=== PATIENT | male | born 1970 | race Caucasian/White ===

== ENCOUNTER 2017-02-15 00:09 | Inpatient (IN) ==
--- NOTE | 2017-02-15 01:29 | Emergency Department Note ---
Disposition Clinical Impression: UTI (urinary tract infection) Qualifiers: Urinary tract infection type: site unspecified Hematuria presence: with hematuria Qualified Code(s): N39.0 - Urinary tract infection, site not specified ; R31.9 - Hematuria, unspecified Disposition: Admitted As Inpatient Condition: Good General Adult HPI - General Chief complaint: ED Recheck/Abnormal Lab/Rx Stated complaint: "Needs IVs" Time Seen by Provider: 02/15/17 00:59 Source: patient Limitations: no limitations Nursing Notes Reviewed: Yes Vital Signs Reviewed: Yes - History of Present Illness HPI Narrative: 47-year-old male presents with urinary tract infection. He mentions he was contacted in this department and was told to return for IV antibiotics. Mentions he has a history of chronic diarrhea, and has not had some recent flulike symptoms, and some mild back pain. Denies any weakness, passing out, chest pain, shortness of breath Pain Scale: 0 - Related Data Home Medications Medication Instructions Recorded Confirmed Fluticasone Propionate Nasal 50 - 100 mcg NS DAILY 11/21/15 11/12/16 [Flonase] Potassium Chloride 60 meq PO BID 11/21/15 11/12/16 Rosuvastatin [Crestor] 20 mg PO HS 11/21/15 11/12/16 Spironolact/Hydrochlorothiazid 1 tab PO BID 11/21/15 11/12/16 [Aldactazide 25-25 Tablet] Cholecalciferol (Vitamin D3) 5,000 unit PO DAILY 11/12/16 11/12/16 [Vitamin D3] Enalapril Maleate [Vasotec] 10 mg PO DAILY 11/12/16 11/12/16 Fluticasone Propionate [Flovent 12 gm IH BID 11/12/16 11/12/16 Hfa] Levothyroxine [Synthroid] 200 mcg PO DAILY 11/12/16 11/12/16 Previous Rx's Medication Instructions Recorded Nitrofurantoin (BID) [Macrobid] 100 mg PO BIDWM #18 capsule 11/14/16 Furosemide [Lasix] 40 mg PO DAILY #30 tablet 02/08/17 Nitrofurantoin (BID) [Macrobid] 100 mg PO BID #14 capsule 02/08/17 Allergies Allergy/AdvReac Type Severity Reaction Status Date / Time adhesive AdvReac Blister Verified 02/15/17 00:23 Amoxicillin AdvReac Hives Verified 02/15/17 00:23 Oxaprozin [From Daypro] AdvReac Diarrhea Verified 02/15/17 00:23 All systems ED: reviewed and negative except as stated. Constitutional: Denies: fever, chills Eyes: Denies: eye discharge ENT ED: Denies: throat pain Cardiovascular: Denies: chest pain Respiratory: Denies: cough, dyspnea Gastrointestinal: Denies: abdominal pain, nausea, vomiting Musculoskeletal: Reports: back pain Integumentary: Denies: rash Neurological: Denies: headache Psychiatric: Denies: anxiety Endocrine: Denies: fatigue Hematological/Lymphatic: Denies: easy bleeding Allergic/Immunologic: Denies: facial swelling Past Medical History - Past Medical History Medical history: Reports: arthritis, asthma, GERD, hyperlipidemia, hypertension , thyroid disease, other Surgical history: Reports: orthopedic, other, vasectomy, other (Surgery for testicular cancer, urostomy, bladder cancer surgery, multiple abdominal surgeries for perforated bowel, spinal cyst excision) Psychiatric history: Reports: depression - Social History Smoking Status: Never smoker Smokeless Tobacco Status: No Alcohol use: Reports: none Drug use: Reports: none Physical Exam - General Limitations: no limitations General appearance: alert, in no apparent distress - Head Head exam: normocephalic - Eye Eye exam: Present: EOMI - ENT ENT exam: normal oropharynx - Neck Neck exam: Present: full ROM - Chest Chest inspection: Present: symmetric chest wall rise - Respiratory Respiratory exam: Present: normal lung sounds bilaterally. Absent: respiratory distress - Cardiovascular Cardiovascular exam: Present: tachycardia - Abdominal Exam Abdominal exam: Present: soft, Non-Tender, other (urostomy) - Extremities Exam Extremities exam: Present: normal capillary refill. Absent: tenderness - Back Exam Back exam: Present: full ROM - Neurological Exam Neurological exam: Present: alert, oriented X3 - Psychiatric Psychiatric exam: Present: normal affect, normal mood Course Course Narrative: 47-year-old male presents with complaint of urinary tract infection. Medical records showed that his previous urinalysis showed MRSA as well Acinetobacter baumannii , and sensitivity only to Unasyn. He was contacted to return for IV antibiotics and presents today. He mentions he has had some recent URI symptoms , and some mild back pain. On examination he does not appear toxic is in no acute distress. Does have a history of chronic UTIs and a urostomy bag. Will order cultures and discuss with hospitalist for admission. - Reevaluation(s) Reevaluation #1: Hospitalist was paged and I discussed patient with Dr. Jacobsen who agreed to accept the patient. However since urine was collected from bag repeat urinalysis with true catheter via urostomy. collection is needed. Dr. Jacobsen also advised dose of doxy after cultures collected. Discussed with nursing who will attempt collection, there is concern for catheter collection difficulty since patient has no bladder. Time: 03:44 Reevaluation #2: Nursing was able to collect a clean catheter urine from patient's urostomy and a second urinalysis and urine culture have been ordered. Time: 05:40 Vital Signs Temperature 97.6 F 02/15/17 00:17 Pulse Rate 108 02/15/17 00:17 Respiratory Rate 18 02/15/17 00:17 Blood Pressure 129/89 02/15/17 00:17 O2 Sat by Pulse Oximetry 97 02/15/17 00:17 Temperature 97.6 F 02/15/17 00:17 Pulse Rate 101 02/15/17 06:05 Respiratory Rate 0 02/15/17 06:16 Blood Pressure 0/0 02/15/17 06:16 O2 Sat by Pulse Oximetry 99 02/15/17 06:05 Oxygen Delivery Oxygen Delivery Room Air Medical Decision Making - MDM Narrative Medical decision making narrative: All Lab Results (24 Hours) 02/15/17 02/15/17 02/15/17 Range/Units 02:25 03:18 03:18 WBC 13.8 H (4.3-11.1) K/mcL RBC 4.65 (4.19-5.50) M/mcL Hgb 12.7 L (12.9-16.9) g/dL Hct 40.2 (37.5-50.1) % MCV 86.5 (83.0-100.0) fL MCH 27.3 L (28.0-33.3) pg MCHC 31.6 (31.6-35.5) g/dL RDW 16.6 H (11.5-14.5) % Plt Count 325 (140-400) K/mcL MPV 10.8 (9.4-12.4) fL Immature Gran % 0.3 (0-4) % Seg Neutrophils % 70.7 % Lymphocytes % 16.2 % Monocytes % 7.3 % Eosinophils % 4.7 % Basophils % 0.8 % Neutrophils # 9.8 H (1.6-8.9) K/mcL Lymphocytes # 2.2 (0.6-4.6) K/mcL Monocytes # 1.0 (0.0-1.3) K/mcL Eosinophils # 0.7 H (0.0-0.6) K/mcL Basophils # 0.1 (0.0-0.2) K/mcL Sodium 137 (136-145) mEq/L Potassium 3.8 (3.5-4.5) mEq/L Chloride 103 (98-109) mEq/L Carbon Dioxide 22 (19-29) mEq/L BUN 21 (8-26) mg/dL Creatinine 1.02 (0.72-1.25) mg/dL Est GFR ( Amer) > 60 (> 60) Est GFR (Non-Af Amer) > 60 (> 60) BUN/Creatinine Ratio 21 (6-26) Glucose 112 H (70-99) mg/dL Calculated Osmolality 288 (280-300) Lactic Acid (0.5-2.2) mmol/L Calcium 9.1 (8.6-10.8) mg/dL Ur Specimen Adequacy Urine Color Yellow (Yellow) Urine Clarity Cloudy A (Clear) Urine pH 6.0 (5.0-8.0) pH Units Ur Specific [place] 1.023 (1.010-1.025) Urine Protein 100 H (Neg-Trace) mg/dL Urine Glucose (UA) Normal (Normal) mg/dL Urine Ketones Negative (Negative) mg/dL Urine Blood Moderate H (Negative) Urine Nitrite Negative (Negative) Urine Bilirubin Negative (Negative) Urine Urobilinogen Normal (Normal) mg/dL Ur Leukocyte Esterase Small H (Negative) Urine Microscopic RBC 50-100 H (0-3) per hpf Urine Microscopic WBC 50-100 H (0-3) per hpf Ur Squamous Epith Cells Many H (None-Few) per lpf Urine Bacteria None Seen (None-Few) per hpf Hyaline Casts Few (None-Few) per lpf Urine Mucus (Few) Urine Yeast (None Seen) per hpf Ur Culture Indicated? YES A (NO) 02/15/17 02/15/17 02/15/17 Range/Units 03:18 04:45 05:30 WBC (4.3-11.1) K/mcL RBC (4.19-5.50) M/mcL Hgb (12.9-16.9) g/dL Hct (37.5-50.1) % MCV (83.0-100.0) fL MCH (28.0-33.3) pg MCHC (31.6-35.5) g/dL RDW (11.5-14.5) % Plt Count (140-400) K/mcL MPV (9.4-12.4) fL Immature Gran % (0-4) % Seg Neutrophils % % Lymphocytes % % Monocytes % % Eosinophils % % Basophils % % Neutrophils # (1.6-8.9) K/mcL Lymphocytes # (0.6-4.6) K/mcL Monocytes # (0.0-1.3) K/mcL Eosinophils # (0.0-0.6) K/mcL Basophils # (0.0-0.2) K/mcL Sodium (136-145) mEq/L Potassium (3.5-4.5) mEq/L Chloride (98-109) mEq/L Carbon Dioxide (19-29) mEq/L BUN (8-26) mg/dL Creatinine (0.72-1.25) mg/dL Est GFR ( Amer) (> 60) Est GFR (Non-Af Amer) (> 60) BUN/Creatinine Ratio (6-26) Glucose (70-99) mg/dL Calculated Osmolality (280-300) Lactic Acid 1.9 1.8 (0.5-2.2) mmol/L Calcium (8.6-10.8) mg/dL Ur Specimen Adequacy See below A Urine Color Yellow (Yellow) Urine Clarity Cloudy A (Clear) Urine pH 6.5 (5.0-8.0) pH Units Ur Specific [place] >= 1.030 H (1.010-1.025) Urine Protein 100 H (Neg-Trace) mg/dL Urine Glucose (UA) Normal (Normal) mg/dL Urine Ketones Negative (Negative) mg/dL Urine Blood Moderate H (Negative) Urine Nitrite Negative (Negative) Urine Bilirubin Negative (Negative) Urine Urobilinogen Normal (Normal) mg/dL Ur Leukocyte Esterase Trace H (Negative) Urine Microscopic RBC 5-15 H (0-3) per hpf Urine Microscopic WBC 15-30 H (0-3) per hpf Ur Squamous Epith Cells Few (None-Few) per lpf Urine Bacteria Few (None-Few) per hpf Hyaline Casts (None-Few) per lpf Urine Mucus Moderate H (Few) Urine Yeast Few H (None Seen) per hpf Ur Culture Indicated? YES A (NO) - Medical Records Medical records reviewed: Yes I reviewed the patient's medical records. - Lab Data Lab results reviewed: Yes I reviewed the patient's lab results. Result diagrams: 02/15/17 03:18 02/15/17 03:18 Lab Results 02/15/17 02/15/17 02/15/17 Range/Units 02:25 03:18 03:18 WBC 13.8 H (4.3-11.1) K/mcL RBC 4.65 (4.19-5.50) M/mcL Hgb 12.7 L (12.9-16.9) g/dL Hct 40.2 (37.5-50.1) % MCV 86.5 (83.0-100.0) fL MCH 27.3 L (28.0-33.3) pg MCHC 31.6 (31.6-35.5) g/dL RDW 16.6 H (11.5-14.5) % Plt Count 325 (140-400) K/mcL MPV 10.8 (9.4-12.4) fL Immature Gran % 0.3 (0-4) % Seg Neutrophils % 70.7 % Lymphocytes % 16.2 % Monocytes % 7.3 % Eosinophils % 4.7 % Basophils % 0.8 % Neutrophils # 9.8 H (1.6-8.9) K/mcL Lymphocytes # 2.2 (0.6-4.6) K/mcL Monocytes # 1.0 (0.0-1.3) K/mcL Eosinophils # 0.7 H (0.0-0.6) K/mcL Basophils # 0.1 (0.0-0.2) K/mcL Sodium 137 (136-145) mEq/L Potassium 3.8 (3.5-4.5) mEq/L Chloride 103 (98-109) mEq/L Carbon Dioxide 22 (19-29) mEq/L BUN 21 (8-26) mg/dL Creatinine 1.02 (0.72-1.25) mg/dL Est GFR ( Amer) > 60 (> 60) Est GFR (Non-Af Amer) > 60 (> 60) BUN/Creatinine Ratio 21 (6-26) Glucose 112 H (70-99) mg/dL Calculated Osmolality 288 (280-300) Lactic Acid (0.5-2.2) mmol/L Calcium 9.1 (8.6-10.8) mg/dL Ur Specimen Adequacy Urine Color Yellow (Yellow) Urine Clarity Cloudy A (Clear) Urine pH 6.0 (5.0-8.0) pH Units Ur Specific [place] 1.023 (1.010-1.025) Urine Protein 100 H (Neg-Trace) mg/dL Urine Glucose (UA) Normal (Normal) mg/dL Urine Ketones Negative (Negative) mg/dL Urine Blood Moderate H (Negative) Urine Nitrite Negative (Negative) Urine Bilirubin Negative (Negative) Urine Urobilinogen Normal (Normal) mg/dL Ur Leukocyte Esterase Small H (Negative) Urine Microscopic RBC 50-100 H (0-3) per hpf Urine Microscopic WBC 50-100 H (0-3) per hpf Ur Squamous Epith Cells Many H (None-Few) per lpf Urine Bacteria None Seen (None-Few) per hpf Hyaline Casts Few (None-Few) per lpf Urine Mucus (Few) Urine Yeast (None Seen) per hpf Ur Culture Indicated? YES A (NO) 02/15/17 02/15/17 02/15/17 Range/Units 03:18 04:45 05:30 WBC (4.3-11.1) K/mcL RBC (4.19-5.50) M/mcL Hgb (12.9-16.9) g/dL Hct (37.5-50.1) % MCV (83.0-100.0) fL MCH (28.0-33.3) pg MCHC (31.6-35.5) g/dL RDW (11.5-14.5) % Plt Count (140-400) K/mcL MPV (9.4-12.4) fL Immature Gran % (0-4) % Seg Neutrophils % % Lymphocytes % % Monocytes % % Eosinophils % % Basophils % % Neutrophils # (1.6-8.9) K/mcL Lymphocytes # (0.6-4.6) K/mcL Monocytes # (0.0-1.3) K/mcL Eosinophils # (0.0-0.6) K/mcL Basophils # (0.0-0.2) K/mcL Sodium (136-145) mEq/L Potassium (3.5-4.5) mEq/L Chloride (98-109) mEq/L Carbon Dioxide (19-29) mEq/L BUN (8-26) mg/dL Creatinine (0.72-1.25) mg/dL Est GFR ( Amer) (> 60) Est GFR (Non-Af Amer) (> 60) BUN/Creatinine Ratio (6-26) Glucose (70-99) mg/dL Calculated Osmolality (280-300) Lactic Acid 1.9 1.8 (0.5-2.2) mmol/L Calcium (8.6-10.8) mg/dL Ur Specimen Adequacy See below A Urine Color Yellow (Yellow) Urine Clarity Cloudy A (Clear) Urine pH 6.5 (5.0-8.0) pH Units Ur Specific [place] >= 1.030 H (1.010-1.025) Urine Protein 100 H (Neg-Trace) mg/dL Urine Glucose (UA) Normal (Normal) mg/dL Urine Ketones Negative (Negative) mg/dL Urine Blood Moderate H (Negative) Urine Nitrite Negative (Negative) Urine Bilirubin Negative (Negative) Urine Urobilinogen Normal (Normal) mg/dL Ur Leukocyte Esterase Trace H (Negative) Urine Microscopic RBC 5-15 H (0-3) per hpf Urine Microscopic WBC 15-30 H (0-3) per hpf Ur Squamous Epith Cells Few (None-Few) per lpf Urine Bacteria Few (None-Few) per hpf Hyaline Casts (None-Few) per lpf Urine Mucus Moderate H (Few) Urine Yeast Few H (None Seen) per hpf Ur Culture Indicated? YES A (NO) Attestation Statement - Attestation Attestation: I, Zhen Hayden MD, personally performed a history and physical exam of the patient and discussed their management with the midlevel provicer, PAC/[employer]ENT[employer]. I reviewed the midlevel provider's note and agree with the documented findings, medical decision making, and plan of care. 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 He was diagnosed with UTI and started on Macrobid. Urine culture grew out 2 organisms, one was sensitive to the Macrobid but the other organism was only sensitive to Unasyn. Patient was called and advised to return here to receive IV antibiotics. He complains of not feeling well with some increased swelling of his legs. Some nausea but no vomiting. No definite fever. History of spina bifida. On exam patient is a well-developed well-nourished male in no acute distress. He is alert and oriented 3. There is no cyanosis or diaphoresis. Breath sounds are equal bilaterally. Heart regular rate and rhythm. Abdomen soft and nontender with normal bowel sounds. Labs reviewed. Mild leukocytosis. Urinalysis shows 50-100 RBCs and 50-100 WBCs. The hospitalist, Dr. Jacobsen, was consulted and accepted admission of the patient.
[2017-02-15 02:54] LABS: Bilirubin,Urine Negative (Negative); Blood,Urine Moderate (Negative); Clarity,Urine Cloudy (Clear); Color,Urine Yellow (Yellow); Glucose,Urine (UA) Normal (Normal); Ketones,Urine Negative (Negative); Leukocyte Esterase,Urine Small (Negative); Nitrite,Urine Negative (Negative); Protein,Urine 100 mg/dL (Neg-Trace); Specific Gravity,Urine 1.023 (1.010-1.025); Urobilinogen,Urine Normal (Normal)
[2017-02-15 02:55] LABS: Bacteria,Urine None Seen per hpf (None-Few); RBC,Urine 50-100 per hpf (0-3); Squamous Epithelial Cell,Urine Many per lpf (None-Few); WBC,Urine 50-100 per hpf (0-3)
[2017-02-15 03:08] LABS: Hyaline Casts,Urine Few per lpf (None-Few)
[2017-02-15 03:47] LABS: Basophils # 0.1 K/mcL (0.0-0.2); Basophils % 0.8 %; Eosinophils # 0.7 K/mcL (0.0-0.6); Eosinophils % 4.7 %; Hematocrit 40.2 % (37.5-50.1); Hemoglobin 12.7 g/dL (12.9-16.9); Immature Granulocytes % 0.3 % (0-4); Lymphocytes # 2.2 K/mcL (0.6-4.6); Lymphocytes % 16.2 %; Mean Corpuscular HGB Conc 31.6 g/dL (31.6-35.5); Mean Corpuscular Hemoglobin 27.3 pg (28.0-33.3); Mean Corpuscular Volume 86.5 fL (83.0-100.0); Mean Platelet Volume 10.8 fL (9.4-12.4); Monocytes % 7.3 %; Neutrophils # 9.8 K/mcL (1.6-8.9); Platelet Count 325 K/mcL (140-400); Red Blood Count 4.65 M/mcL (4.19-5.50); Red Cell Distribution Width 16.6 % (11.5-14.5); Segmented Neutrophils % 70.7 %
[2017-02-15 03:59] LABS: BUN/Creatinine Ratio 21 (6-26); Blood Urea Nitrogen 21 mg/dL (8-26); Calcium 9.1 mg/dL (8.6-10.8); Carbon Dioxide 22 mEq/L (19-29); Chloride 103 mEq/L (98-109); Glucose 112 mg/dL (70-99); Osmolality,Calculated 288 (280-300); Potassium 3.8 mEq/L (3.5-4.5); Sodium 137 mEq/L (136-145); eGFR For African Americans > 60 (> 60); eGFR For Non-African Americans > 60 (> 60)
[2017-02-15 05:22] LABS: Bilirubin,Urine Negative (Negative); Blood,Urine Moderate (Negative); Clarity,Urine Cloudy (Clear); Color,Urine Yellow (Yellow); Glucose,Urine (UA) Normal (Normal); Ketones,Urine Negative (Negative); Leukocyte Esterase,Urine Trace (Negative); Nitrite,Urine Negative (Negative); PH,Urine 6.5 pH Units (5.0-8.0); Protein,Urine 100 mg/dL (Neg-Trace); Specific Gravity,Urine >= 1.030 (1.010-1.025); Urobilinogen,Urine Normal (Normal)
[2017-02-15 05:28] LABS: Mucus,Urine Moderate (Few); Squamous Epithelial Cell,Urine Few per lpf (None-Few); WBC,Urine 15-30 per hpf (0-3)
[2017-02-15 05:32] LABS: Bacteria,Urine Few per hpf (None-Few); Yeast,Urine Few per hpf (None Seen)
[2017-02-15] MEDS ORDERED: Doxycycline 100 MG CAPSULE PO ONE (05:37)
[2017-02-15] MEDS ORDERED: Naloxone 0.4 MG/ML INJ IVP PRN (07:36)
[2017-02-15] MEDS ORDERED: Acetaminophen 325 MG TABLET PO PRN (07:36)
--- NOTE | 2017-02-15 07:48 | Internal Med History&Physical ---
Date of Encounter: 02/15/17 Time of Encounter: 07:30 Assessment and Plan (1) MDR Acinetobacter baumannii infection Current visit: Yes Status: Suspected Patient with acute urinary tract infection with urine culture positive for Acinetobacter. Will admit inpatient. Consult infectious disease. Will give 1 dose of IV tigecycline. This could also be a contaminant or colonization. However patient has not grown this bacteria before. Will follow ID recommendations. Repeat attempted gut cleaner urine culture. High risk for complications. (2) Essential hypertension Current visit: No Status: Chronic Monitor blood pressure. Continue home medications. Currently well controlled. (3) Hyperlipidemia Current visit: No Status: Chronic Continue rosuvastatin Qualifiers: Hyperlipidemia type: mixed hyperlipidemia Qualified Code(s): E78.2 - Mixed hyperlipidemia (4) Hypothyroidism Current visit: No Status: Chronic Continue levothyroxine. Qualifiers: Hypothyroidism type: acquired Qualified Code(s): E03.9 - Hypothyroidism, unspecified (5) History of urostomy Current visit: No Status: Chronic (6) UTI (urinary tract infection) Current visit: No Status: Acute Acute complicated urinary tract infection due to presence urostomy and multidrug -resistant organisms including Acinetobacter and MRSA. Patient will need IV antibiotics. Will follow repeat urine cultures Qualifiers: Urinary tract infection type: site unspecified Hematuria presence: without hematuria Qualified Code(s): N39.0 - Urinary tract infection, site not specified Internal Medicine - H&P: HPI Chief complaint: Positive urine culture results Admitted From: Emergency Dept Plans for Post Hospital Care: Home History of present illness: Mr. Leone is a 47 year old male with a history of spina bifida, status post urostomy for bladder cancer presented to the ER today after he was asked to come in due to positive cultures of his urine. He had come in on the 10th of this month to the ER with complaints of leg swelling and during that time, his urine was cultured. It is growing positive for MRSA and Acinetobacter. As such he was asked to come in. The patient currently denies any pain in his abdomen, fevers chills or night sweats. He does have diarrhea which he always gets when he takes antibiotics. He was placed on Macrobid during his ER visit. Denies any hematuria. He does complain of a couple of small open wounds around the site of his urostomy. Patient has been on multiple courses of antibiotics previously for multiple courses of acute urinary tract infection. He was on suppressive therapy with oral antibiotics for about 6 months in the past. He has had infections with Morganella, ESBL Proteus and vancomycin-resistant enterococcus in the past. We will do the first time he has grown MRSA and Acinetobacter. Past Med Surg Social Fam HX - Past Medical History Attestation: Yes The following information was validated with the patient. Medical history: arthritis, asthma, cancer, GERD, hyperlipidemia, hypertension, thyroid disease, other Psychiatric history: depression - Past Surgical History Surgical History: orthopedic, other, vasectomy, other - Social History Smoking Status: Never smoker Smokeless Tobacco Status: No Alcohol use: none Drug use: none - Family History Father Living Status: Hx Family Cardiac Disorders: Yes Hx Family Respiratory Disorders: Yes Hx Family Cancer: No Hx Family GI Disorders: No Hx Family Endocrine Disorder: Yes Hx Family Neuromuscular Disorders: No Hx Family Neurologic Disorders: No Hx Family HEENT Disorders: No Hx Family Autoimmune Disorders: No Internal Medicine - H&P: Meds Fluticasone Propionate Nasal [Flonase] 50 - 100 mcg NS DAILY 11/21/15 [History] Potassium Chloride 60 meq PO BID 11/21/15 [History] Rosuvastatin [Crestor] 20 mg PO HS 11/21/15 [History] Spironolact/Hydrochlorothiazid [Aldactazide 25-25 Tablet] 1 tab PO BID 11/21/15 [History] Cholecalciferol (Vitamin D3) [Vitamin D3] 5,000 unit PO DAILY 11/12/16 [History] Enalapril Maleate [Vasotec] 10 mg PO DAILY 11/12/16 [History] Fluticasone Propionate [Flovent Hfa] 12 gm IH BID 11/12/16 [History] Levothyroxine [Synthroid] 200 mcg PO DAILY 11/12/16 [History] Nitrofurantoin (BID) [Macrobid] 100 mg PO BIDWM #18 capsule 11/14/16 [Rx] Furosemide [Lasix] 40 mg PO DAILY #30 tablet 02/08/17 [Rx] Nitrofurantoin (BID) [Macrobid] 100 mg PO BID #14 capsule 02/08/17 [Rx] Allergies adhesive Adverse Reaction (Verified 02/15/17 00:23) Blister Amoxicillin Adverse Reaction (Verified 02/15/17 00:23) Hives Oxaprozin [From Daypro] Adverse Reaction (Verified 02/15/17 00:23) Diarrhea All Systems PM: A 10-system review of systems was performed and is negative for pertinent findings except as documented above in the HPI. - Constitutional Constitutional: no chills, no fever(s), no night sweats - EENT Eyes: no change in vision, no discharge, no pain, no photophobia Nose, mouth and throat: no dysphagia, no nasal discharge, no neck pain, no sore throat - Cardiovascular Cardiovascular ROS IM: no chest pain, no diaphoresis, no dyspnea, no lightheadedness, no palpitations, no syncope - Respiratory Respiratory: no cough, no dyspnea, no wheezing, no excessive phlegm production - Gastrointestinal Gastrointestinal: no abdominal pain, no diarrhea, no hematemesis, no hematochezia, no melena, no nausea, no vomiting - Musculoskeletal Musculoskeletal ROS IM: no numbness, no tingling - Integumentary Integumentary IM: no rash, no unusual bruising - Neurological Neurological ROS: no confusion, no convulsions, no focal weakness, no numbness, no tingling, no tremor(s) - Constitutional Vitals: Temp Pulse Resp BP Pulse Ox 97.6 F 101 0 0/0 99 02/15/17 00:17 02/15/17 06:05 02/15/17 06:16 02/15/17 06:16 02/15/17 06:05 General appearance: Present: cooperative, A&O X 3, no acute distress, answers questions appropriately - Eye Eye exam: Present: EOMI, PERRL, conjuntiva pink, sclera anicteric - Neck Neck exam general surgery: Present: supple, trachea midline. Absent: lymphadenopathy - Respiratory Respiratory exam: Present: CTAB. Absent: accessory muscle use, rales, rhonchi, wheezes - Cardiovascular Cardiovascular exam: Present: RRR, +S1, +S2. Absent: diastolic murmur, gallop, rubs, systolic murmur - GI/Abdominal GI/Abdominal exam: Present: normal bowel sounds, soft, no peritoneal signs. Absent: distended, tenderness - Extremities Exam Extremities exam: Present: warm, radial pulses palpable and symetrical. Absent : calf tenderness, cyanotic, pedal edema - Neurological Exam Neurological exam: Present: alert, CN II-XII intact, oriented X3, no focal deficits. Absent: facial droop, speech deficit - Skin Skin exam: Present: dry, intact Internal Med - H&P Results - Labs CBC & Chem 7: 02/15/17 03:18 02/15/17 03:18 - Attending Attestation This document has been at least partially created by [employer] recognition technology by Dr. Ortiz. Errors in grammar, wording or other phrases may exist. If errors are found after the documentation is signed, they will be addressed individually in the addendum section of this document when appropriate.
[2017-02-15] MEDS ORDERED: Tigecycline 100 MG in 0.9 % Sodium Chloride Mini Bag 100 ML IVPB ONE (09:18)
[2017-02-15] MEDS ORDERED: 0.9 % Sodium Chloride 1,000 ML IVC ONE (09:30)
[2017-02-15] MEDS ORDERED: SODIUM CHLORIDE 0.9% IVPB SCH (10:00)
[2017-02-15] MEDS ORDERED: Vancomycin 1,500 MG in D5% in Water 250 ML IVPB SCH (10:00)
[2017-02-15] MEDS ORDERED: COLISTIN IVPB SCH (10:00)
[2017-02-15] MEDS: Cholecalciferol (D-3) 1,000 UNIT TABLET PO SCH (10:27)
[2017-02-15] MEDS: hydroCHLOROthiazide 25 MG TABLET PO SCH ×2 (10:27→17:10)
[2017-02-15] MEDS: Spironolactone 25 MG TABLET PO SCH ×2 (10:27→17:10)
[2017-02-15] MEDS: Furosemide 40 MG TABLET PO SCH (10:27)
[2017-02-15] MEDS: FLUTICASONE PROPIONATE IH SCH ×2 (10:28→21:01)
--- NOTE | 2017-02-15 11:09 | Infectious Disease Consult ---
Date of Encounter: 02/15/17 Time of Encounter: 11:07 Assessment and Plan (1) Bacteriuria Status: Acute Assessment and plan: Urine culture obtained at the 02/08/17 ER visit grew out MRSA and MDR Acinetobacter. According to the patient, this urine specimen was collected from his urostomy bag. He was treated with a 7 day course of oral Macrobid previously and states he was feeling better. Clinically, the patient has no symptoms consistent with a UTI. Repeat urinalysis shows proteinuria, trace leukocyte esterase, 15-30 WBC, and few bacteria. Repeat culture is pending. The patient does have mild leukocytosis, but no fevers, abdominal pain, CVA tenderness, etc. Consider holding antibiotics until repeat urine culture comes back unless the patient becomes toxic. At that time, would start Vancomycin and Colistin. Blood cultures drawn 02/15/17 are pending x 2 sets. Discussed the risks, benefits, and alternatives with the patient and his family who are at the bedside. They verbalize understanding and are in agreement with the plan. (2) History of urostomy Status: Chronic Assessment and plan: Completed two years ago at the [facility] secondary to bladder cancer. (3) Spina bifida Status: Chronic Qualifiers: Spinal region: lumbosacral Presence of hydrocephalus: unspecified hydrocephalus presence Qualified Code(s): Q05.7 - Lumbar spina bifida without hydrocephalus (4) Essential hypertension Status: Chronic (5) Hyperlipidemia Status: Chronic Qualifiers: Hyperlipidemia type: mixed hyperlipidemia Qualified Code(s): E78.2 - Mixed hyperlipidemia (6) Hypothyroidism Status: Chronic Qualifiers: Hypothyroidism type: acquired Qualified Code(s): E03.9 - Hypothyroidism, unspecified Infectious Disease HPI - Data of Consult Patient: new to practice Consult date: 02/15/17 Requesting Physician: Jennyfer Shaw MD Primary Care Provider: Maria Elena An - Consult Narrative Reason for consult: MDR Bacteriuria History of present illness: Mr. Leone is a 47 year old male with a past medical history of asthma, hypothyroidism, spina bifida, bladder cancer status post ileocecal conduit placement and urostomy. The patient was admitted to the hospital February 15, 2017 for [id number] organism in the urine. We are consulted for antibiotic recommendations. The patient's a 47-year-old male with past medical history as stated above. The patient states that approximately 2 years ago he was diagnosed with bladder cancer and underwent resection of a cancerous part of his bladder. Subsequently he was given a urostomy and has had that ever since. He does report multiple episodes of drug-resistant organisms in his urine. He states that approximately week ago he went to the emergency department complaining of bilateral lower extremity leg swelling, nausea, vomiting, and diarrhea. The ER doctor checked a urinalysis that was indicative of a UTI and pace the patient on the seven-day course of by mouth Macrobid. The patient states that his symptoms resolved with completion of the oral antibiotic. He states he received a phone call from the ER staff stating that he had 2 different bacteria in his urine and he needed to come to the ER for admission for IV antibiotics. Upon arrival, the patient was afebrile. He was mildly tachycardic, does report he was pretty anxious about coming to the hospital. Laboratory studies revealed a mild leukocytosis with some neutrophilic predominance. Basic metabolic panel was within normal limits. Lactic acid was normal. A urinalysis was obtained that was taken directly from the urostomy and not from the urostomy bag. This shows a trace amount of leukocyte esterase, 15-30 white blood cells, and few bacteria. Repeat urine cultures pending. The patient was given a one-time dose of oral doxycycline and was admitted to the hospital for further evaluation and treatment. During my exam today, the patient states that overall he feels well. He denies any fevers or chills or rigors. 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 He denies any congestion, earache, or sore throat. He does report a mild nonproductive cough that is chronic secondary to his asthma. He denies any chest pain or shortness of breath. He denies any nausea, vomiting, diarrhea, or constipation. He denies abdominal pain and states that appetite has been very good. He denies any night sweats or weight loss. He denies any changes in his urine. He states that he has not noticed any hematuria, foul odor, or changes in the color or clarity. He denies any flank pain. He does report some chronic lower back pain. He denies any oral thrush or any skin lesions. CC: Jennyfer Shaw MD Past Med Surg Social Fam HX - Past Medical History Attestation: Yes The following information was validated with the patient. Source: patient, old records reviewed, nursing notes reviewed Medical history: arthritis, asthma, cancer (Bladder status post surgical resection with urostomy), GERD, hyperlipidemia, hypertension, thyroid disease, other (spina bifida) Psychiatric history: depression - Past Surgical History Surgical History: appendectomy, orthopedic, other (Multiple reconstructive surgeries to the BLE ), vasectomy, other (Bladder cancer removal, testicle removed.) - Social History Smoking Status: Never smoker Smokeless Tobacco Status: No Alcohol use: none Drug use: none Occupational status: disabled Current living situation: Home, With Family Activity Level: Uses cane/walker Recent Out of Country Travel Within the Last 8 Weeks: No Exposure or Possible Exposure to Illness During Travel: No - Family History Father Living Status: Hx Family Cardiac Disorders: Yes Hx Family Respiratory Disorders: Yes Hx Family Cancer: No Hx Family GI Disorders: No Hx Family Endocrine Disorder: Yes Hx Family Neuromuscular Disorders: No Hx Family Neurologic Disorders: No Hx Family HEENT Disorders: No Hx Family Autoimmune Disorders: No Infectious Disease-CN:Meds Fluticasone Propionate Nasal [Flonase] 50 - 100 mcg NS DAILY 11/21/15 [History] Potassium Chloride 60 meq PO BID 11/21/15 [History] Rosuvastatin [Crestor] 20 mg PO HS 11/21/15 [History] Cholecalciferol (Vitamin D3) [Vitamin D3] 5,000 unit PO DAILY 11/12/16 [History] Fluticasone Propionate [Flovent Hfa] 2 puff IH BID 11/12/16 [History] Levothyroxine [Synthroid] 200 mcg PO DAILY 11/12/16 [History] Furosemide [Lasix] 40 mg PO DAILY #30 tablet 02/08/17 [Rx] Spironolactone [Aldactone] 25 mg PO BID #60 tablet 02/16/17 [Rx] Spironolactone [Aldactone] 25 mg PO BIDDIURETIC tablet 02/16/17 [Rx] Allergies adhesive Adverse Reaction (Verified 02/15/17 00:23) Blister Amoxicillin Adverse Reaction (Verified 02/15/17 00:23) Hives Oxaprozin [From Daypro] Adverse Reaction (Verified 02/15/17 00:23) Diarrhea All systems: reviewed and no additional remarkable complaints except as stated Exam - Constitutional Vitals: Temp Pulse Resp BP Pulse Ox 97.7 F 92 18 107/69 100 02/15/17 08:10 02/15/17 08:10 02/15/17 08:10 02/15/17 08:10 02/15/17 08:10 General appearance: cooperative, no acute distress, obese - Head Head exam: Present: atraumatic, normal inspection, normocephalic - Eye Eye exam: Present: EOMI, normal appearance, PERRL Pupils: Present: normal accommodation - ENT ENT exam: Present: mucous membranes moist - Neck Neck exam: Present: normal inspection - Respiratory Respiratory exam: Present: CTAB. Absent: rales, respiratory distress, rhonchi, wheezes - Cardiovascular Cardiovascular exam: Present: RRR, +S1, +S2 - GI/Abdominal GI/Abdominal exam: Present: distended (obese), normal bowel sounds, soft. Absent: tenderness Additional comments: Well-healed scar noted to the abdominal midline. Urostomy noted to the RLQ with beefy red stoma. Clear, dark yellow urine noted in the collection appliance. - Extremities Exam Extremities exam: Present: pedal edema (1+ BLE). Absent: joint swelling, tenderness - Back Exam Back exam: Absent: CVA tenderness (L), CVA tenderness (R) - Neurological Exam Neurological exam: Present: alert, oriented X3, no focal deficits - Psychiatric Psychiatric exam: Present: normal affect, normal mood - Skin Skin exam: Present: dry, intact, normal color, warm Infectious Disease CN: Results - Labs CBC & Chem 7: 02/16/17 05:17 02/16/17 05:17 Consult Discharge Plan - Plan Referrals: Maria Elena An MD [Primary Care Provider] - 02/25/17 1:45 pm Prescriptions: Spironolactone [Aldactone] 25 mg PO BID #60 tablet
[2017-02-15] MEDS: *HR* Heparin 5,000 UNIT/ML VIAL SQ SCH (17:09)
[2017-02-16 05:41] LABS: Basophils # 0.1 K/mcL (0.0-0.2); Basophils % 0.6 %; Eosinophils # 0.6 K/mcL (0.0-0.6); Eosinophils % 5.9 %; Hemoglobin 12.4 g/dL (12.9-16.9); Immature Granulocytes % 0.3 % (0-4); Lymphocytes # 1.8 K/mcL (0.6-4.6); Lymphocytes % 17.8 %; Mean Corpuscular Hemoglobin 27.2 pg (28.0-33.3); Mean Corpuscular Volume 87.7 fL (83.0-100.0); Mean Platelet Volume 10.2 fL (9.4-12.4); Monocytes # 0.8 K/mcL (0.0-1.3); Monocytes % 8.4 %; Neutrophils # 6.7 K/mcL (1.6-8.9); Platelet Count 334 K/mcL (140-400); Red Blood Count 4.56 M/mcL (4.19-5.50); Red Cell Distribution Width 16.6 % (11.5-14.5)
[2017-02-16 05:58] LABS: BUN/Creatinine Ratio 21 (6-26); Blood Urea Nitrogen 21 mg/dL (8-26); Calcium 8.8 mg/dL (8.6-10.8); Carbon Dioxide 23 mEq/L (19-29); Chloride 105 mEq/L (98-109); Glucose 153 mg/dL (70-99); Osmolality,Calculated 292 (280-300); Potassium 4.3 mEq/L (3.5-4.5); Sodium 138 mEq/L (136-145); eGFR For African Americans > 60 (> 60); eGFR For Non-African Americans > 60 (> 60)
[2017-02-16] MEDS: *HR* Heparin 5,000 UNIT/ML VIAL SQ SCH (06:28)
[2017-02-16] MEDS: hydroCHLOROthiazide 25 MG TABLET PO SCH (08:47)
[2017-02-16] MEDS: Spironolactone 25 MG TABLET PO SCH (08:47)
[2017-02-16] MEDS: Furosemide 40 MG TABLET PO SCH (08:47)
[2017-02-16] MEDS: FLUTICASONE PROPIONATE IH SCH (08:47)
[2017-02-16] MEDS: Cholecalciferol (D-3) 1,000 UNIT TABLET PO SCH (08:47)
[2017-02-16 12:24] VITALS: BP 123/73
--- NOTE | 2017-02-16 14:26 | Discharge Summary ---
Date of Encounter: 02/16/17 Time of Encounter: 13:30 - Discharge Diagnosis (1) Bacteriuria Priority: Primary Status: Acute (2) History of urostomy Priority: Primary Status: Chronic (3) Decubitus ulcer of left ankle, stage 3 Priority: Secondary Status: Chronic (4) Hypothyroidism Priority: Secondary Status: Chronic Qualifiers: Hypothyroidism type: acquired Qualified Code(s): E03.9 - Hypothyroidism, unspecified (5) Spina bifida Priority: Secondary Status: Chronic Qualifiers: Spinal region: lumbosacral Presence of hydrocephalus: unspecified hydrocephalus presence Qualified Code(s): Q05.7 - Lumbar spina bifida without hydrocephalus - Discharge Medications Home Medications: Fluticasone Propionate Nasal [Flonase] 50 - 100 mcg NS DAILY 11/21/15 [History] Potassium Chloride 60 meq PO BID 11/21/15 [History] Rosuvastatin [Crestor] 20 mg PO HS 11/21/15 [History] Cholecalciferol (Vitamin D3) [Vitamin D3] 5,000 unit PO DAILY 11/12/16 [History] Fluticasone Propionate [Flovent Hfa] 2 puff IH BID 11/12/16 [History] Levothyroxine [Synthroid] 200 mcg PO DAILY 11/12/16 [History] Furosemide [Lasix] 40 mg PO DAILY #30 tablet 02/08/17 [Rx] Spironolactone [Aldactone] 25 mg PO BID #60 tablet 02/16/17 [Rx] Spironolactone [Aldactone] 25 mg PO BIDDIURETIC tablet 02/16/17 [Rx] Allergies/Adverse Reactions: Allergies adhesive Adverse Reaction (Verified 02/15/17 00:23) Blister Amoxicillin Adverse Reaction (Verified 02/15/17 00:23) Hives Oxaprozin [From Daypro] Adverse Reaction (Verified 02/15/17 00:23) Diarrhea Date of admission: 02/15/17 09:28 Primary care physician: Maria Elena An - Patient Status Disposition: Home Health Service Condition: Good Functional capacity at discharge: uses cane/walker Overall status at discharge: patient is back to baseline - Discharge Instructions Follow Up With: Maria Elena An MD [Primary Care Provider] - 02/25/17 1:45 pm - Diet and Activity Activity: resume usual activities as tolerated Diet: low fat, low cholesterol, low salt diet Interval History: patient has no complaints. he is eager to go home. Hospital course: Mr. Leone is a 47 year old male with past medical history of asthma, spina bifida, bladder cancer status post ileocecal conduit placement and urostomy, and hypothyroidism. A week ago he went to the ER complaining of nausea, vomiting , and diarrhea. UTI was positive for MRSA and MDR Acinetobacter 02/08/17. He was sent home on macrobid. Patient is asymptomatic for UTI. repeat urine culture is negative 02/15. blood cultures x2 are negative so far. Patient is eating well and is eager to go home. no UTI, no need for antibiotics. - Time Spent with Patient Total time spent providing and/or coordinating discharge services: - Constitutional Vitals: Temp Pulse Resp BP Pulse Ox 98.2 F 90 16 123/73 96 02/16/17 12:22 02/16/17 12:22 02/16/17 12:22 02/16/17 12:22 02/16/17 12:22 General appearance: Present: cooperative, A&O X 3, no acute distress, answers questions appropriately - Eye Eye exam: Present: PERRL, sclera anicteric - Neck Neck exam general surgery: Present: lymphadenopathy. Absent: supple, trachea midline - Respiratory Respiratory exam: Present: CTAB - Cardiovascular Cardiovascular exam: Present: RRR - GI/Abdominal GI/Abdominal exam: Present: normal bowel sounds. Absent: distended, soft, tenderness Additional comments: urostomy bag in site. - Extremities Exam Extremities exam: Present: pedal edema - Back Exam Back exam: Absent: CVA tenderness (L), CVA tenderness (R) - Neurological Exam Neurological exam: Present: alert, oriented X3 - Skin Skin exam: Present: dry (decubitus ulcer ). Absent: rash
--- NOTE | 2017-02-16 14:42 | Physician Discharge Referral ---
Home Health/Hosp Referral Info Transfer to: Home Health Attending Provider: yaniv Provider in Charge Post Discharge: PCP - Diagnosis (1) Bacteriuria Status: Acute (2) History of urostomy Status: Chronic (3) Decubitus ulcer of left ankle, stage 3 Status: Chronic (4) Hypothyroidism Status: Chronic (5) Spina bifida Status: Chronic - Respiratory Orders Smoking Cessation: Smoking cessation has been advised. For more information, call the [place] Tobacco Quit Line at 5-705-PJOF-NOW. - Diet/Nutrition Diet/Nutrition Orders: No Added Salt (MICHAEL) - Activity Activity Orders: Ambulate (crutches) - Services Needed Following services are medically necessary services: Nursing, Home Health Aide, Physical Therapy, Occupational Therapy - Transfer Medications Prescriptions: Spironolactone [Aldactone] 25 mg PO BID #60 tablet Home Medications: Fluticasone Propionate Nasal [Flonase] 50 - 100 mcg NS DAILY 11/21/15 [History] Potassium Chloride 60 meq PO BID 11/21/15 [History] Rosuvastatin [Crestor] 20 mg PO HS 11/21/15 [History] Cholecalciferol (Vitamin D3) [Vitamin D3] 5,000 unit PO DAILY 11/12/16 [History] Fluticasone Propionate [Flovent Hfa] 2 puff IH BID 11/12/16 [History] Levothyroxine [Synthroid] 200 mcg PO DAILY 11/12/16 [History] Furosemide [Lasix] 40 mg PO DAILY #30 tablet 02/08/17 [Rx] Spironolactone [Aldactone] 25 mg PO BID #60 tablet 02/16/17 [Rx] Spironolactone [Aldactone] 25 mg PO BIDDIURETIC tablet 02/16/17 [Rx] Allergies/Adverse Reactions: Allergies adhesive Adverse Reaction (Verified 02/15/17 00:23) Blister Amoxicillin Adverse Reaction (Verified 02/15/17 00:23) Hives Oxaprozin [From Daypro] Adverse Reaction (Verified 02/15/17 00:23) Diarrhea Certification: Further, I certify that my clinical findings support that this patient is homebound (i.e. absences from home require considerable and taxing effort and are for medical reasons or scientologist services or infrequently or short duration when for other reasons) because: Homebound Reason: Patient requires assistance of a person or device to safely leave home, Leaving home requires considerable and taxing effort due to condition Attestation: My signature below is to certify that this patient is under my care and that I, or nurse practitioner, or a physician's assistant store manager sales working with me, has a face-to -face encounter with this patient.
== END 2017-02-16 16:02 | disposition home health service (06) | DRG 695 ==
LOC: EMEROO 00:09 → 3ANU 00:09
PROVIDERS: ADMIT Pediatrics; ATTEND Internal Medicine

== ENCOUNTER 2017-03-22 23:18 | Inpatient (IN) ==
--- NOTE | 2017-03-22 23:26 | Emergency Department Note ---
Disposition Clinical Impression: UTI (urinary tract infection) Qualifiers: Urinary tract infection type: site unspecified Hematuria presence: without hematuria Qualified Code(s): N39.0 - Urinary tract infection, site not specified Leukocytosis Qualifiers: Leukocytosis type: unspecified Qualified Code(s): D72.829 - Elevated white blood cell count, unspecified Lower extremity edema Qualifiers: Laterality: bilateral Qualified Code(s): R60.0 - Localized edema Diarrhea Qualifiers: Diarrhea type: unspecified type Qualified Code(s): R19.7 - Diarrhea, unspecified Disposition: Admitted As Inpatient Condition: Fair Referrals: Maria Elena An MD [Primary Care Provider] - Forms: ED Satisfaction Letter Time of Disposition: 04:37 Extremity Problem HPI - General Chief complaint: ED Extremity Problem,Nontraumatic Stated complaint: left leg swelling Time Seen by Provider: 03/22/17 23:22 Source: patient, EMS Limitations: no limitations - History of Present Illness HPI Narrative: Patient is a 47-year-old male with past medical history of spina bifida, hypertension, hyperlipidemia, diabetes, ostomy. He presented today due to multiple complaints. First complaint was bilateral lower extremity edema and redness, worse on the left. He states that this is been going on for a few days. He had concerns for blood clot. Second complaint was diarrhea, nonbloody. The complaint was suprapubic pain, burning with urination, dark urine. He also had complaints of a cough. Denies any chest pain, fevers, nausea or vomiting. Pain Scale: 5 - Related Data Home Medications Medication Instructions Recorded Confirmed Fluticasone Propionate Nasal 50 - 100 mcg NS DAILY 11/21/15 03/08/17 [Flonase] Potassium Chloride 60 meq PO BID 11/21/15 03/08/17 Rosuvastatin [Crestor] 20 mg PO HS 11/21/15 03/08/17 Cholecalciferol (Vitamin D3) 5,000 unit PO DAILY 11/12/16 03/08/17 [Vitamin D3] Fluticasone Propionate [Flovent 2 puff IH BID 11/12/16 03/08/17 Hfa] Levothyroxine [Synthroid] 200 mcg PO DAILY 11/12/16 03/08/17 Budesonide [Pulmicort Flexhaler 180 mcg IH BID 03/08/17 03/08/17 180mcg] Lactobacillus Acidophilus/Fos 1 each PO DAILY 03/08/17 03/08/17 [Acidophilus Probiotic Tablet] Lansoprazole [Prevacid] 15 mg PO DAILY 03/08/17 03/08/17 Loratadine [Claritin] 10 mg PO DAILY 03/08/17 03/08/17 Multivitamin [One Daily 1 each PO DAILY 03/08/17 03/08/17 Multivitamin] Previous Rx's Medication Instructions Recorded Spironolactone [Aldactone] 25 mg PO BID #60 tablet 02/16/17 Allergies Allergy/AdvReac Type Severity Reaction Status Date / Time adhesive AdvReac Blister Verified 03/08/17 10:14 Amoxicillin AdvReac Hives Verified 03/08/17 10:14 Oxaprozin [From Daypro] AdvReac Diarrhea Verified 03/08/17 10:14 All systems ED: reviewed and negative except as stated. Constitutional: Denies: fever Cardiovascular: Denies: chest pain, palpitations Respiratory: Reports: cough. Denies: dyspnea, wheezes Gastrointestinal: Reports: abdominal pain, diarrhea. Denies: nausea, vomiting Genitourinary: Reports: dysuria, other Musculoskeletal: Reports: myalgia, other Integumentary: Denies: rash Neurological: Denies: headache, weakness, numbness, paresthesias Past Medical History - Past Medical History Attestation: Yes The following information was validated with the patient. Source: patient Medical history: Reports: arthritis, asthma, cancer, CVA, diabetes, GERD, hyperlipidemia, hypertension, thyroid disease, other Surgical history: Reports: appendectomy, orthopedic, other, vasectomy, other Psychiatric history: Reports: depression - Social History Smoking Status: Former smoker Smokeless Tobacco Status: No Alcohol use: Reports: none Drug use: Reports: none Physical Exam - General Limitations: no limitations General appearance: alert, in no apparent distress - Head Head exam: atraumatic, normocephalic, normal inspection - Eye Eye exam: Present: normal appearance, PERRL, EOMI - ENT ENT exam: normal exam, normal oropharynx, mucous membranes moist - Neck Neck exam: Present: normal inspection, full ROM, trachea midline - Chest Chest inspection: Present: normal inspection, symmetric chest wall rise - Respiratory Respiratory exam: Present: normal lung sounds bilaterally - Cardiovascular Cardiovascular exam: Present: regular rate, normal rhythm, normal heart sounds - Abdominal Exam Abdominal exam: Present: soft, tenderness (suprapubic pain), other (ostomy present in lower abdomen ). Absent: distention, guarding, rebound - Extremities Exam Extremities exam: Present: other (Significant bilateral LE edema from knee down bilateral LE. Left leg erythema from mid calf down, left leg is tense with mild amount of clear fluid weeping. ) - Neurological Exam Neurological exam: Present: alert, oriented X3 - Psychiatric Psychiatric exam: Present: normal affect, normal mood - Skin Skin exam: Present: warm, dry, intact, normal color Course Course Narrative: Patient mildly tachycardic. Physical exam shows some mild suprapubic tenderness. Patient also has an ostomy present, viable and pink. Significant bilateral LE edema from knee down bilateral LE. Left leg erythema from mid calf down, left leg is tense with mild amount of clear fluid weeping. Doppler ultrasound was obtained. Tech stated that there is limited exam due to the significant swelling. However, she was unable to find any clots and was able to appreciate good blood flow. Labs show leukocytosis, UA shows UTI. 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 Will admit for IV antibiotics and further care of lower extremity swelling. Previous UTI was sensitive to vancomycin. However a second organism grew that was only sensitive to Unasyn. However, patient is allergic to penicillins. It is resistant to carbapenems. Recommend consultation infectious disease once the patient is admitted for further recs. Vancomycin started in ED. Vital Signs Temperature 98.1 F 03/22/17 23:20 Pulse Rate 102 03/22/17 23:20 Respiratory Rate 16 03/22/17 23:20 Blood Pressure 136/92 03/22/17 23:20 O2 Sat by Pulse Oximetry 100 03/22/17 23:20 Temperature 98.1 F 03/22/17 23:20 Pulse Rate 102 03/22/17 23:20 Respiratory Rate 16 03/22/17 23:20 Blood Pressure 136/92 03/22/17 23:20 O2 Sat by Pulse Oximetry 100 03/22/17 23:20 Oxygen Delivery Oxygen Delivery Room Air Extremity Problem, Nontraumati - MDM Narrative Medical decision making narrative: Patient mildly tachycardic. Physical exam shows some mild suprapubic tenderness. Patient also has an ostomy present, viable and pink. Significant bilateral LE edema from knee down bilateral LE. Left leg erythema from mid calf down, left leg is tense with mild amount of clear fluid weeping. Doppler ultrasound was obtained. Tech stated that there is limited exam due to the significant swelling. However, she was unable to find any clots and was able to appreciate good blood flow. Labs show leukocytosis, UA shows UTI. 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 Will admit for IV antibiotics and further care of lower extremity swelling. Previous UTI was sensitive to vancomycin. However a second organism grew that was only sensitive to Unasyn. However, patient is allergic to penicillins. It is resistant to carbapenems. Recommend consultation infectious disease once the patient is admitted for further recs. Vancomycin started in ED. - Medical Records Medical records reviewed: Yes I reviewed the patient's medical records. - Lab Data Lab results reviewed: Yes I reviewed the patient's lab results. Result diagrams: 03/23/17 00:48 03/23/17 00:48 Lab Results 03/23/17 03/23/17 03/23/17 Range/Units 00:48 00:48 01:30 WBC 11.9 H (4.3-11.1) K/mcL RBC 4.44 (4.19-5.50) M/mcL Hgb 12.3 L (12.9-16.9) g/dL Hct 38.1 (37.5-50.1) % MCV 85.8 (83.0-100.0) fL MCH 27.7 L (28.0-33.3) pg MCHC 32.3 (31.6-35.5) g/dL RDW 16.1 H (11.5-14.5) % Plt Count 320 (140-400) K/mcL MPV 10.3 (9.4-12.4) fL Immature Gran % 0.3 (0-4) % Seg Neutrophils % 72.1 % Lymphocytes % 14.4 % Monocytes % 7.0 % Eosinophils % 5.4 % Basophils % 0.8 % Neutrophils # 8.6 (1.6-8.9) K/mcL Lymphocytes # 1.7 (0.6-4.6) K/mcL Monocytes # 0.8 (0.0-1.3) K/mcL Eosinophils # 0.6 (0.0-0.6) K/mcL Basophils # 0.1 (0.0-0.2) K/mcL Immature Plt Fraction 5.6 (1.1-6.1) % Sodium 141 (136-145) mEq/L Potassium 3.2 L (3.5-4.5) mEq/L Chloride 108 (98-109) mEq/L Carbon Dioxide 22 (19-29) mEq/L BUN 10 (8-26) mg/dL Creatinine 0.87 (0.72-1.25) mg/dL Est GFR ( Amer) > 60 (> 60) Est GFR (Non-Af Amer) > 60 (> 60) BUN/Creatinine Ratio 11 (6-26) Glucose 121 H (70-99) mg/dL Calculated Osmolality 292 (280-300) Calcium 9.1 (8.6-10.8) mg/dL Ur Specimen Adequacy See below A Urine Color Brown (Yellow) Urine Clarity Cloudy A (Clear) Urine pH 8.0 (5.0-8.0) pH Units Ur Specific Bath 1.022 (1.010-1.025) Urine Protein 100 H (Neg-Trace) mg/dL Urine Glucose (UA) Normal (Normal) mg/dL Urine Ketones Negative (Negative) mg/dL Urine Blood Large H (Negative) Urine Nitrite Positive A (Negative) Urine Bilirubin Negative (Negative) Urine Urobilinogen Normal (Normal) mg/dL Ur Leukocyte Esterase Moderate H (Negative) Ur Culture Indicated? YES A (NO) - Radiology Data Radiology results reviewed: Yes I reviewed the patient's radiology results. Chest X-Ray 03/22/17 23:27 IMPRESSION: No acute cardiopulmonary disease. D/ / Brian Busby MD / Brian Busby MD Interpreting Provider: Brian Busby MD S.B.A.R. - S.B.A.R. Situation: Demographics, MOA Background: Presenting Complaint, Relevant PMH, Meds, & Allergies Assessment: Vital Signs, Course and respsone to treatment, Exam Concerns, Patient/Family Expectation, Pertinant Lab Results, Outstanding Labs Recommendation: Barrier(s) to disposition, Recommendation based on pending studies, treatments, or consults Hiram Report Given to: Dr. Karuna Gandhi Repor Time: 04:37 Attestation Statement - Attestation Attestation: I examined this patient and my medical decision-making was reviewed with the PAPERHANGER ASSISTANT/PA/Advanced Practice Nurse/Resident Physician. I agree with the documented findings, disposition and treatment plan as described except to the extent set forth below. Patient emergency department with left leg pain and swelling. Onset a couple of days ago. States is warm. Patient states he also has dark urine and is having green diarrhea. Patient has a history of surgery on the left leg from spina bifida. On examination he is in no acute distress. He is a moderate amount of swelling and pitting edema to the left lower leg. Plan. Labs and ultrasound rule out DVT. Patient with UTI. Reviewed old cultures that showed [id number] organisms. IV antibiotics and admission.
[2017-03-23 00:58] LABS: Basophils # 0.1 K/mcL (0.0-0.2); Basophils % 0.8 %; Eosinophils # 0.6 K/mcL (0.0-0.6); Eosinophils % 5.4 %; Hematocrit 38.1 % (37.5-50.1); Hemoglobin 12.3 g/dL (12.9-16.9); Immature Granulocytes % 0.3 % (0-4); Immature Platelets 5.6 % (1.1-6.1); Lymphocytes # 1.7 K/mcL (0.6-4.6); Lymphocytes % 14.4 %; Mean Corpuscular HGB Conc 32.3 g/dL (31.6-35.5); Mean Corpuscular Hemoglobin 27.7 pg (28.0-33.3); Mean Corpuscular Volume 85.8 fL (83.0-100.0); Mean Platelet Volume 10.3 fL (9.4-12.4); Monocytes # 0.8 K/mcL (0.0-1.3); Neutrophils # 8.6 K/mcL (1.6-8.9); Platelet Count 320 K/mcL (140-400); Red Blood Count 4.44 M/mcL (4.19-5.50); Red Cell Distribution Width 16.1 % (11.5-14.5); Segmented Neutrophils % 72.1 %
[2017-03-23 01:11] LABS: BUN/Creatinine Ratio 11 (6-26); Blood Urea Nitrogen 10 mg/dL (8-26); Calcium 9.1 mg/dL (8.6-10.8); Carbon Dioxide 22 mEq/L (19-29); Chloride 108 mEq/L (98-109); Glucose 121 mg/dL (70-99); Osmolality,Calculated 292 (280-300); Potassium 3.2 mEq/L (3.5-4.5); Sodium 141 mEq/L (136-145); eGFR For African Americans > 60 (> 60); eGFR For Non-African Americans > 60 (> 60)
[2017-03-23 01:59] LABS: Bilirubin,Urine Negative (Negative); Blood,Urine Large (Negative); Clarity,Urine Cloudy (Clear); Color,Urine Brown (Yellow); Glucose,Urine (UA) Normal (Normal); Ketones,Urine Negative (Negative); Leukocyte Esterase,Urine Moderate (Negative); Nitrite,Urine Positive (Negative); Protein,Urine 100 mg/dL (Neg-Trace); Specific Gravity,Urine 1.022 (1.010-1.025); Urobilinogen,Urine Normal (Normal)
[2017-03-23] MEDS ORDERED: Vancomycin 1,500 MG in D5% in Water 250 ML IVPB ONE (03:25)
--- NOTE | 2017-03-23 08:15 | Event Note ---
Date of Encounter: 03/23/17 Time of Encounter: 08:12 Patient seen and examined with nurse practitioner. 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 He also has left leg swelling redness possibly from cellulitis, no DVT. Hemodynamically stable. Will start the patient empirically on Zyvox and meropenem. He has been having diarrhea that was checked multiple times before and was negative for C diff, we will recheck again. Infectious disease consultation. urine and blood cultures. Full code. Contact precautions
[2017-03-23] MEDS ORDERED: Ondansetron 4 MG/2 ML VIAL IVP PRN (08:28)
[2017-03-23] MEDS ORDERED: Naloxone 0.4 MG/ML INJ IVP PRN (08:28)
[2017-03-23] MEDS ORDERED: Acetaminophen 325 MG TABLET PO PRN (08:28)
[2017-03-23] MEDS ORDERED: *HR* HYDROcodone/Acet 5/325 mg TABLET PO PRN (08:28)
[2017-03-23] MEDS ORDERED: Potassium Chloride 40 MEQ, Lidocaine 1% 2 ML in D5% in Water 500 ML IVPB ONE (08:45)
--- NOTE | 2017-03-23 09:14 | Internal Med History&Physical ---
Date of Encounter: 03/23/17 Time of Encounter: 07:45 Assessment and Plan (1) UTI (urinary tract infection) Current visit: Yes Status: Acute Assess: Patient presents with diagnosis of UTI. Patient also has history of 5 UTIs within the past year. Last UTI was positive for MRSA, VRE, and ESBL. Plan: Blood cultures were ordered UA ordered Sputum culture ordered Linezolid ordered Meropenem ordered Consult to Infectious Diseases ordered Follow up blood tests ordered Qualifiers: Urinary tract infection type: site unspecified Hematuria presence: without hematuria Qualified Code(s): N39.0 - Urinary tract infection, site not specified (2) Leukocytosis Current visit: Yes Status: Acute Assess: Patient presents with diagnosis of UTI. Patient also has history of 5 UTIs within the past year. Last UTI was positive for MRSA, VRE, and ESBL. Plan: Blood cultures were ordered UA ordered Sputum culture ordered Linezolid ordered Meropenem ordered Consult to Infectious Diseases ordered Follow up blood tests ordered Qualifiers: Leukocytosis type: unspecified Qualified Code(s): D72.829 - Elevated white blood cell count, unspecified (3) Lower extremity edema Current visit: Yes Status: Acute Assess: Patient presents with bilateral lower extremity edema, which is worse and left leg. Legs are erythematous and edematous with 4+ pitting in left lower leg and 3 + pitting in right lower leg. Plan: Bedrest ordered Doppler ordered to check periopheral pulses Antibiotics ordered for coverage of UTI and possible cellulitis OT consult ordered PT consult ordered Acetaminophen ordered for pain 1-3 Hydrocodone ordered for pain 4-6 I & O due to UTI and edema of lower extremities Monitor weight Falls precautions ordered Qualifiers: Laterality: bilateral Qualified Code(s): R60.0 - Localized edema (4) Nausea and vomiting Current visit: No Status: Acute Assess: Patient presents with complaint of N/V for the past several days. States he vomits after eating. Plan: Clear liquid diet ordered to be transitioned to diabetic diet as tolerated Zofran ordered PRN Qualifiers: Vomiting type: unspecified Vomiting Intractability: unspecified Qualified Code(s): R11.2 - Nausea with vomiting, unspecified (5) Diarrhea Current visit: Yes Status: Acute Assess: Patient reports episodes of diarrhea over the past 48 hours which is green in color. Plan: Culture ordered for C. Diff Clear liquid diet ordered with transition to diabetic diet as tolerated Qualifiers: Diarrhea type: unspecified type Qualified Code(s): R19.7 - Diarrhea, unspecified (6) Diabetes 1.5, managed as type 2 Current visit: Yes Status: Acute Assess: Patient presents with T2DM which he reports is controlled by diet. Patient is obese with history of UTI infections (5X over past year) with resistant organisms. Plan: Glucose monitoring Diabetes education ordered Clear liquid diet ordered due to N/V. Diet to be transitioned to diabetic diet as tolerated. (7) Decubitus ulcer of left ankle, stage 3 Current visit: No Status: Chronic Assess: Patient presents with lower leg edema bilaterally which is worse in left leg. Patient also presents with decubitus wound on left ankle, stage 3. Plan: Wound care ordered Bedrest Falls precautions ordered (8) DVT prophylaxis Current visit: No Status: Acute Assess: Patient to be placed on DVT prophylaxis due to inpatient status, history of DVT , and bedrest/sedentary status. Plan: Lovenox DVT prophylaxis ordered Internal Medicine - H&P: HPI Chief complaint: UTI, lower left leg edema Admitted From: Emergency Dept Plans for Post Hospital Care: Home History of present illness: Mr. Leone is a 47 year old male who presents from the ED with a UTI and lower eg edema and erythema, worse on the left leg. He states that this began over a week ago before he sought treatment. He is concerned about a possible DVT due to his history of a CVA two years ago. He states that he is experiencing pain over his suprapubic area with burning and dark, turbid urine. States he was diagnosed with a small cyst on his left kidney within the past year. He also reports that he has had diarrhea over the past two days that in now green in color but denies any fecal blod. Mr. Leone also reports that he has developed a cough over a week ago that is now producing green sputum. He reports chills over the past week and vomiting each time he eats, but denies fever. Mr. Leone has a history of spina bifida, HTN, hyperlipidemia, DM which is controlled with diet, urinary ostomy, arthritis, asthma, cancer, and GERD. Patient has history of 5 UTIs over the past year with the last infection positive for MRSA, VTE, and ESBL. Patient is to be admitted as inpatient. Cultures ordered for blood, urine, and sputum. Infection control to be consulted. Bed rest ordered with DVT prophylaxis. Doppler U/S obtained in ED showed no DVT. Past Med Surg Social Fam HX - Past Medical History Medical history: arthritis, asthma, cancer, CVA, diabetes, GERD, hyperlipidemia , hypertension, thyroid disease, other Psychiatric history: depression - Past Surgical History Surgical History: appendectomy, orthopedic, other, vasectomy, other - Social History Smoking Status: Never smoker Smokeless Tobacco Status: No Alcohol use: none Drug use: none Occupational status: unemployed Current living situation: Home Activity Level: Independent ambulation Recent Out of Country Travel Within the Last 8 Weeks: No Exposure or Possible Exposure to Illness During Travel: No - Family History Father Race: Family Member Ethnicity: Non- Living Status: Age at : 65 Cause of : Lung cancer Hx Family Cardiac Disorders: Yes (CHF, HTN) Hx Family Respiratory Disorders: Yes (Asthma, emphysema) Hx Family Cancer: Yes (Lung) Hx Family GI Disorders: No Hx Family Endocrine Disorder: Yes Hx Family Neuromuscular Disorders: No Hx Family Neurologic Disorders: No Hx Family HEENT Disorders: No Hx Family Autoimmune Disorders: No Mother Race: Family Member Ethnicity: Non- Living Status: Still Living Hx Family Cardiac Disorders: Yes (HTN) Hx Family Endocrine Disorder: Yes (DM) Hx Family Neurologic Disorders: Yes (Dementia) Sister Race: Family Member Ethnicity: Non- Living Status: Still Living Hx Family Cardiac Disorders: Yes (HTN) Hx Family Endocrine Disorder: Yes (DM, thyroid) Hx Family Musculoskeletal Disorders: Yes (Spina bifida) Brother Race: Family Member Ethnicity: Non- Living Status: Still Living Hx Family Cardiac Disorders: Yes (HTN) Internal Medicine - H&P: Meds RX: Fluticasone Propionate Nasal [Flonase] 50 - 100 mcg NS DAILY 11/21/15 [ History] RX: Potassium Chloride 60 meq PO BID 11/21/15 [History] RX: Rosuvastatin [Crestor] 20 mg PO HS 11/21/15 [History] RX: Cholecalciferol (Vitamin D3) [Vitamin D3] 5,000 unit PO DAILY 11/12/16 [ History] RX: Fluticasone Propionate [Flovent Hfa] 2 puff IH BID 11/12/16 [History] RX: Levothyroxine [Synthroid] 200 mcg PO DAILY 11/12/16 [History] Budesonide [Pulmicort Flexhaler 180mcg] 1 puff IH BID 03/08/17 [History] Lactobacillus Acidophilus/Fos [Acidophilus Probiotic Tablet] 1 cap PO DAILY 06/17 [History] Lansoprazole [Prevacid] 15 mg PO DAILY 03/08/17 [History] Multivitamin [One Daily Multivitamin] 1 tab PO DAILY 03/08/17 [History] RX: Loratadine [Claritin] 10 mg PO DAILY 03/08/17 [History] Enalapril Maleate [Vasotec] 10 mg PO DAILY 03/23/17 [History] Ostomy Adhesive [Coloplast Paste Strip] 1 each MC AD 03/23/17 [History] Saline Nasal [place] [[place] Nasal [place]] 1 spray NS AD 03/23/17 [History] Allergies adhesive Adverse Reaction (Verified 03/08/17 10:14) Blister Amoxicillin Adverse Reaction (Verified 03/08/17 10:14) Hives Oxaprozin [From Daypro] Adverse Reaction (Verified 03/08/17 10:14) Diarrhea All Systems PM: A 10-system review of systems was performed and is negative for pertinent findings except as documented above in the HPI. - Constitutional Constitutional: as per HPI, chills, falls Additional comments: Patient reports having chills over past week. Denies fever. Patient also reports falling due to edematous status of lower extremities, especially left leg. - EENT Eyes: no change in vision, no discharge, no pain, no photophobia Ears: no ear discharge, no ear pain, no tinnitus Nose, mouth and throat: no dysphagia, no nasal discharge, no neck pain, no sore throat - Breasts Breasts: as per HPI - Cardiovascular Cardiovascular ROS IM: no chest pain, no diaphoresis, no dyspnea, no lightheadedness, no palpitations, no syncope - Respiratory Respiratory: as per HPI, cough, change in phlegm color Additional comments: Patient reports cough within the past two weeks that is producing green sputum. - Gastrointestinal Gastrointestinal: as per HPI, diarrhea, nausea, vomiting Additional comments: Patient reports that he has been having diarrhea over the past several days that is green. Also states that he has been nauseated and vomits after eating. - Genitourinary Genitourinary ROS male: as per HPI - Musculoskeletal Musculoskeletal ROS IM: as per HPI, muscle weakness Additional comments: Patient reports muscle weakness in his lower extremities due to current edema. Patient states that he has fallen several times due to this weakness. Reports his "legs gave out on him". - Integumentary Integumentary IM: as per HPI, erythema, skin ulcer Additional comments: Patient reports erythema in lower left leg began over a week ago. Also reports decubitus ulcer on left ankle. - Neurological Neurological ROS: as per HPI, frequent falls, weakness Additional comments: Patient reports weakness in lower extremities, especially left leg. He reports this weakness has caused him to fall several times. - Psychiatric Psychiatric: as per HPI - Endocrine Endocrine IM: as per HPI - Hematologic/Lymphatic Hematologic/Lymphatic: no easy bruising - Allergic/Immunologic Allergic/Immunologic: as per HPI - Constitutional Vitals: Temp Pulse Resp BP Pulse Ox 97.7 F 84 16 149/84 100 03/23/17 07:33 03/23/17 07:33 03/23/17 07:33 03/23/17 07:33 03/23/17 07:33 General appearance: Present: cooperative, A&O X 3, morbidly obese, pleasant, no acute distress, obese, answers questions appropriately - Head Head exam: Present: atraumatic, normocephalic - Eye Eye exam: Present: PERRL, conjuntiva pink, sclera anicteric Pupils: Present: PERRL - ENT ENT exam: Present: normal exam - Neck Neck exam general surgery: Present: normal inspection, supple, trachea midline - Respiratory Respiratory exam: Present: wheezes Additional comments: Patient has expiratory wheezes noted bilaterally in all lobes that improve with coughing. - Cardiovascular Cardiovascular exam: Present: RRR, +S1, +S2. Absent: diastolic murmur, gallop, rubs, systolic murmur - GI/Abdominal GI/Abdominal exam: Present: diminished bowel sounds, soft Additional comments: Patient has diminished bowel sounds on auscultation. Abdomen is soft and non- tender. Stoma is pink with bag securely attached. Urine is yellow, turbid, and malodorous. - Rectal Rectal exam: Present: deferred - Additional comments: exam deferred. - Extremities Exam Extremities exam: Present: calf tenderness, pedal edema, tenderness, warm Additional comments: Patient's lower extremities are edematous, erythematous, and warm. This is especially noted in lower left leg. 4+ pitting edema in lower left leg. 3+ pitting edema in lower right leg. Calf tenderness present in left leg. Doppler exam of lower left leg dated 03/23/17 shows no sign of DVT. Doppler of peripheral pulses ordered. - Back Exam Back exam: Present: normal inspection - Neurological Exam Neurological exam: Present: alert, oriented X3, reflexes normal - Psychiatric Psychiatric exam: Present: normal affect, normal mood - Skin Skin exam: Present: erythema, warm Additional comments: Skin exam normal with exception of patient's lower extremities which are edematous and erythematous, especially in left leg. Internal Med - H&P Results - Labs CBC & Chem 7: 03/23/17 00:48 03/23/17 00:48 - Diagnostic Studies Chest x-ray Additional comments: 1-View CXR dated 03/23/17 is limited due to obesity. Heart size and configuration are normal and lungs are clear. No pneumothorax or pleural effusion. No acute cardiopulmonary disease. Venous US Additional comments: Doppler U/S done in ED on 03/23/17 was limited due to significant edema in left lower leg. No clots noted and good blood flow.
[2017-03-23] MEDS: Meropenem 1,000 MG in 0.9 % Sodium Chloride Mini Bag 100 ML IVPB SCH ×4 (10:12→21:49)
[2017-03-23] MEDS: 0.9 % Sodium Chloride 1,000 ML IVC SCH ×2 (10:14→21:48)
--- NOTE | 2017-03-23 13:39 | Venous Imaging Report ---
LE Venous Duplex Patient Name:Sammy Leone Order Number:[id number] Procedure Date:03/22/2017 Date:1970Age:47 yrs Gender:Male Location:[facility] ED Room #: ER2 Calciner Operator:Erma Legerveronika Referring MD:Torsten Rodriguez DO registered nursing professor:Maria Elena An MD Reading MD:Guerrero Aguayo MD Primary Indications:Bilateral LE edema, erythema Secondary Indications: Impressions: Bilateral lower extremity: normal superficial and deep exam. Recommendations: After imaging the patient returned to their room. Gave vascular preliminary to Torsten Rodriguez in emergency department on 03/23/2017 at 00:50. Test completed on 03/23/2017 at 12:41:00 am. Findings Venous Duplex Results: Right: The right superficial femoral, right popliteal, right peroneal and right lesser saphenous veins were not well visualized. Left: The left superficial femoral, left popliteal, left peroneal and left lesser saphenous veins were not well visualized. Lower Extremity Venous Duplex Side Vein Compress Spontaneous Flow Augment Diameter (cm) Depth (cm) Right Distal Iliac Normal Yes Phasic Yes Right Common Femoral Normal Yes Phasic Yes Right Superficial Femoral Normal Yes Phasic Yes Right Popliteal Normal Yes Phasic Yes Right Posterior Tibial Normal Yes Phasic Yes Right Peroneal Normal Yes Phasic Yes Right Great Saphenous Normal Yes Phasic Yes Right Lesser Saphenous Normal Yes Phasic Yes Left Distal Iliac Normal Yes Phasic Yes Left Common Femoral Normal Yes Phasic Yes Left Superficial Femoral Normal Yes Phasic Yes Left Popliteal Normal Yes Phasic Yes Left Posterior Tibial Normal Yes Phasic Yes Left Peroneal Normal Yes Phasic Yes Left Great Saphenous Normal Yes Phasic Yes Left Lesser Saphenous Normal Yes Phasic Yes Updated by Guerrero Aguayo MD on 03/23/2017 1:33:59 PM electronically signed on 03/23/2017 1:34:12 PM with status of Final
[2017-03-23] MEDS: [UNRECOGNIZED DRUG - SUPPLY] TP SCH (14:45)
[2017-03-23] MEDS: Saline Nasal Spray 44 ML BOTTLE NS SCH ×2 (18:39→21:34)
[2017-03-23] MEDS: Nystatin POWDER 30 GM BOTTLE TP SCH ×2 (18:40→21:26)
[2017-03-23 20:08] LABS: Magnesium 1.8 mg/dL (1.6-2.6); Potassium 3.3 mEq/L (3.5-4.5)
[2017-03-23] MEDS ORDERED: BUDESONIDE IH SCH (21:00)
[2017-03-23] MEDS: Beclomethasone 80mcg MDI IH SCH (21:11)
[2017-03-24] MEDS: *HR* Enoxaparin 40 MG/0.4 ML SYRINGE SQ SCH (06:27)
[2017-03-24] MEDS: Meropenem 1,000 MG in 0.9 % Sodium Chloride Mini Bag 100 ML IVPB SCH (06:28)
[2017-03-24 08:06] LABS: Basophils # 0.1 K/mcL (0.0-0.2); Basophils % 0.8 %; Eosinophils # 0.6 K/mcL (0.0-0.6); Eosinophils % 6.6 %; Hematocrit 36.8 % (37.5-50.1); Hemoglobin 11.3 g/dL (12.9-16.9); Immature Granulocytes % 0.2 % (0-4); Lymphocytes # 1.4 K/mcL (0.6-4.6); Lymphocytes % 15.7 %; Mean Corpuscular HGB Conc 30.7 g/dL (31.6-35.5); Mean Corpuscular Hemoglobin 26.9 pg (28.0-33.3); Mean Corpuscular Volume 87.6 fL (83.0-100.0); Mean Platelet Volume 11.3 fL (9.4-12.4); Monocytes # 0.8 K/mcL (0.0-1.3); Monocytes % 8.6 %; Platelet Count 323 K/mcL (140-400); Red Cell Distribution Width 16.2 % (11.5-14.5); Segmented Neutrophils % 68.1 %
[2017-03-24] MEDS: Beclomethasone 80mcg MDI IH SCH ×2 (08:09→20:34)
[2017-03-24] MEDS ORDERED: Ampicillin/Sulbactam 1,500 MG in 0.9 % Sodium Chloride Mini Bag 100 ML IVPB SCH (08:17)
[2017-03-24 08:22] LABS: Alanine Aminotransferase 15 Units/L (0-55); Albumin 2.8 g/dL (3.5-5.0); Albumin/Globulin Ratio 0.8 (1.1-2.2); Alkaline Phosphatase 61 Units/L (38-126); Aspartate Amino Transferase 16 Units/L (5-34); BUN/Creatinine Ratio 9 (6-26); Bilirubin,Total 0.3 mg/dL (0.2-1.2); Blood Urea Nitrogen 8 mg/dL (8-26); Calcium 8.5 mg/dL (8.6-10.8); Carbon Dioxide 19 mEq/L (19-29); Chloride 110 mEq/L (98-109); Chol/HDL Ratio 4.2 (0-4.9); Cholesterol 144 mg/dL (< 200); Globulin 3.7 g/dL (2.4-3.5); Glucose 125 mg/dL (70-99); HDL Cholesterol 34 mg/dL (40-59); LDL Cholesterol,Calculated 83 mg/dL (0-99); Osmolality,Calculated 290 (280-300); Potassium 3.7 mEq/L (3.5-4.5); Sodium 140 mEq/L (136-145); Total Protein 6.5 g/dL (6.0-8.3); Triglycerides 137 mg/dL (< 150); eGFR For African Americans > 60 (> 60); eGFR For Non-African Americans > 60 (> 60)
[2017-03-24] MEDS: Loratadine 10 MG TABLET PO SCH (10:08)
[2017-03-24] MEDS: Saline Nasal Spray 44 ML BOTTLE NS SCH ×2 (10:08→22:24)
[2017-03-24] MEDS: Cholecalciferol (D-3) 1,000 UNIT TABLET PO SCH (10:08)
[2017-03-24] MEDS: Lactobacillus 1 EACH CAP.SPRINK PO SCH (10:08)
[2017-03-24] MEDS: Multivit/Ca/Min/Fe/FA 1 TAB TABLET PO SCH (10:08)
[2017-03-24] MEDS: Fluticasone Propionate Nasal 50 MCG/SPRAY BOTTLE NS SCH ×2 (10:09→22:24)
[2017-03-24] MEDS: Nystatin POWDER 30 GM BOTTLE TP SCH ×2 (10:09→22:24)
--- NOTE | 2017-03-24 10:53 | Internal Med Progress Note ---
<Raymond Foster - Last Filed: 03/24/17 16:11> Date of Encounter: 03/24/17 Time of Encounter: 10:53 - Assessment and plan (1) Cellulitis of left lower extremity Current Visit: Yes Status: Acute Assessment and plan: Left lower extremity demonstrates erythema and edema with small blisters. There is no associated left ankle ulcer. Risk factors include spina bifida, type 2 diabetes. - Suspicion for staphylococcal infection given presentation. Plan: - Discontinue Zyvox and meropenem - Vancomycin dosing per pharmacy - Topical nystatin cream twice a day (2) Diabetes 1.5, managed as type 2 Current Visit: Yes Status: Acute Assessment and plan: Patient is a known type II diabetic, current glucose 115 Plan: - ACHS glucose checks - Low-dose insulin sliding scale. (3) Leukocytosis Current Visit: Yes Status: Acute Assessment and plan: Resolved. Likely secondary to cellulitis. Qualifiers: Leukocytosis type: unspecified Qualified Code(s): D72.829 - Elevated white blood cell count, unspecified (4) Lower extremity edema Current Visit: Yes Status: Acute Assessment and plan: Chronic history of bilateral lower extremity edema with worsening over the last 2 weeks likely secondary to cellulitis. Bilateral 4+ pitting edema with weeping. Continue monitoring, treat underlying infection. Qualifiers: Laterality: bilateral Qualified Code(s): R60.0 - Localized edema (5) UTI (urinary tract infection) Current Visit: Yes Status: Acute Assessment and plan: History of chronic urinary tract infections with urostomy bag. History of VRE, ESBL, MRSA urinary tract infections. Urine culture so far growing gram- negative rods. Patient will chronic bacterial growth with urostomy, patient has been asymptomatic. Denies abdominal pains, fevers, chills. - Discontinued meropenem Qualifiers: Urinary tract infection type: site unspecified Hematuria presence: without hematuria Qualified Code(s): N39.0 - Urinary tract infection, site not specified (6) Decubitus ulcer of left ankle, stage 3 Current Visit: No Status: Chronic Assessment and plan: Patient has decubitus ulcer of the left ankle secondary to spina bifida, bilateral lower extremity edema significant, diabetes, immobility. - Wound care consult - Continue pressure precautions (7) Hyperlipidemia Current Visit: No Status: Chronic Assessment and plan: Chronic history. Qualifiers: Hyperlipidemia type: mixed hyperlipidemia Qualified Code(s): E78.2 - Mixed hyperlipidemia (8) Spina bifida Current Visit: No Status: Chronic Assessment and plan: Chronic history of spina bifida limiting mobility. Likely contributing to chronic medical conditions. Qualifiers: Spinal region: lumbosacral Presence of hydrocephalus: unspecified hydrocephalus presence Qualified Code(s): Q05.7 - Lumbar spina bifida without hydrocephalus (9) Hypothyroidism Current Visit: Yes Status: Acute Assessment and plan: Continue levothyroxin 200 g by mouth every a.m. Qualifiers: Qualified Code(s): E03.9 - Hypothyroidism, unspecified (10) DVT prophylaxis Current Visit: No Status: Acute Assessment and plan: Lovenox 40 mg subcutaneous - Subjective Interval history: Mr. Leone 47M has been seen and evaluated patient bedside this morning. He is alert awake oriented interactive and denies any pain or discomforts. He feels that the swelling in his left lower extremities has improved and is currently without pain. He denies any nausea, vomiting, diarrhea, abdominal discomfort today. He has a urostomy bag and said that the color of his urine has significantly improved since starting antibiotic coverage. He has chronic swelling of his lower extremities but says that over the last 2 weeks he has noticed erythema and increased edema. He requests somebody to trim his nails. - Constitutional Vitals: Temp Pulse Resp BP Pulse Ox 97.4 F L 87 16 122/70 95 03/24/17 07:12 03/24/17 07:12 03/24/17 08:09 03/24/17 07:12 03/24/17 08:09 General appearance: Present: cooperative, A&O X 3, morbidly obese, pleasant, no acute distress, obese, answers questions appropriately Exam: Gen.: Alert awake oriented interactive no acute distress. HEENT normocephalic, atraumatic, pupils equal and reactive, nasal cavity. No pink, oral mucosa moist, poor dentition with gingivitis. Neck supple trachea midline no palpable lymphadenopathy Chest/pulmonary: Clear to auscultation bilateral, thoracic cavity demonstrates symmetric expansion correlating respiratory effort. No cyanosis appreciated on examination Cardiac: Regular rate and rhythm positive S1-S2 no murmurs or gallops appreciated negative for bruits, radial pulses 2+ bilateral. Abdomen: Obese, soft, nontender to palpation, urostomy bag and lower right quadrant with frothy white/yellow urine. Extremities: Bilateral lower extremities have 4+ pitting edema with left side > right side and edema. Left lower extremity demonstrates erythema and warmth along the lateral aspect of the distal lower extremity associated with small furuncles and small blisters. Bilateral toenails demonstrate onychodystrophy. Internal Medicine: Result - Labs CBC & Chem 7: 03/24/17 05:50 03/24/17 05:50 Labs: Short CBC 03/24/17 Range/Units 05:50 WBC 8.8 (4.3-11.1) K/mcL Hgb 11.3 L (12.9-16.9) g/dL Hct 36.8 L (37.5-50.1) % Plt Count 323 (140-400) K/mcL Neutrophils # 6.0 (1.6-8.9) K/mcL BMP 03/23/17 03/24/17 17:30 05:50 Sodium 140 Potassium 3.3 L 3.7 Chloride 110 H Carbon Dioxide 19 BUN 8 Creatinine 0.91 Glucose 125 H Calcium 8.5 L Liver Function 03/24/17 Range/Units 05:50 Total Bilirubin 0.3 (0.2-1.2) mg/dL AST 16 (5-34) Units/L ALT 15 (0-55) Units/L Alkaline Phosphatase 61 (38-126) Units/L Albumin 2.8 L (3.5-5.0) g/dL Consult Discharge Plan - Plan Referrals: Maria Elena An MD [Primary Care Provider] - <Becky Polanco E - Last Filed: 03/24/17 17:33> Date of Encounter: 03/24/17 - Constitutional Vitals: Temp Pulse Resp BP Pulse Ox 97.8 F 86 16 134/81 99 03/24/17 15:39 03/24/17 15:39 03/24/17 15:39 03/24/17 15:39 03/24/17 15:39 Internal Medicine: Result - Labs CBC & Chem 7: 03/24/17 05:50 03/24/17 05:50 Labs: Short CBC 03/24/17 Range/Units 05:50 WBC 8.8 (4.3-11.1) K/mcL Hgb 11.3 L (12.9-16.9) g/dL Hct 36.8 L (37.5-50.1) % Plt Count 323 (140-400) K/mcL Neutrophils # 6.0 (1.6-8.9) K/mcL BMP 03/23/17 03/24/17 17:30 05:50 Sodium 140 Potassium 3.3 L 3.7 Chloride 110 H Carbon Dioxide 19 BUN 8 Creatinine 0.91 Glucose 125 H Calcium 8.5 L Liver Function 03/24/17 Range/Units 05:50 Total Bilirubin 0.3 (0.2-1.2) mg/dL AST 16 (5-34) Units/L ALT 15 (0-55) Units/L Alkaline Phosphatase 61 (38-126) Units/L Albumin 2.8 L (3.5-5.0) g/dL - Attending Attestation I examined this patient and reviewed laboratory, imaging and all diagnostic data. My medical decision-making was reviewed with Dr Foster - Resident Physician. I agree with the documented findings, disposition and treatment plan as described above
[2017-03-24] MEDS ORDERED: Dextrose Gel 15 GM PO PRN ×2 (12:09)
[2017-03-24] MEDS ORDERED: *HR* Dextrose 50 % in Water (Syg) 50 ML SYRINGE IVP PRN (12:09)
[2017-03-24] MEDS ORDERED: D5% in Water 1,000 ML IVC PRN (12:09)
[2017-03-24] MEDS: Nystatin Cream 15 GM TUBE TP SCH ×2 (12:30→22:24)
[2017-03-24] MEDS: Vancomycin 2,000 MG in D5% in Water 500 ML IVPB SCH (15:10)
[2017-03-24] MEDS: [UNRECOGNIZED DRUG - SUPPLY] TP SCH (17:50)
[2017-03-24] MEDS: Insulin LISPRO 300 UNITS/3 ML VIAL SQ SCH (17:52)
[2017-03-24] MEDS: 0.9 % Sodium Chloride 1,000 ML IVC SCH (17:57)
[2017-03-24] MEDS ORDERED: Insulin LISPRO 300 UNITS/3 ML VIAL SQ SCH (21:00)
[2017-03-25] MEDS: Vancomycin 2,000 MG in D5% in Water 500 ML IVPB SCH (01:07)
[2017-03-25 04:36] LABS: Basophils # 0.1 K/mcL (0.0-0.2); Basophils % 0.7 %; Eosinophils # 0.7 K/mcL (0.0-0.6); Hematocrit 34.9 % (37.5-50.1); Hemoglobin 10.7 g/dL (12.9-16.9); Immature Granulocytes % 0.4 % (0-4); Lymphocytes # 1.7 K/mcL (0.6-4.6); Lymphocytes % 17.9 %; Mean Corpuscular HGB Conc 30.7 g/dL (31.6-35.5); Mean Corpuscular Volume 87.9 fL (83.0-100.0); Mean Platelet Volume 10.4 fL (9.4-12.4); Monocytes # 0.8 K/mcL (0.0-1.3); Monocytes % 8.2 %; Neutrophils # 6.3 K/mcL (1.6-8.9); Platelet Count 314 K/mcL (140-400); Red Blood Count 3.97 M/mcL (4.19-5.50); Red Cell Distribution Width 15.9 % (11.5-14.5); Segmented Neutrophils % 65.8 %
[2017-03-25 04:53] LABS: Alanine Aminotransferase 11 Units/L (0-55); Albumin 2.7 g/dL (3.5-5.0); Albumin/Globulin Ratio 0.7 (1.1-2.2); Alkaline Phosphatase 60 Units/L (38-126); Aspartate Amino Transferase 12 Units/L (5-34); BUN/Creatinine Ratio 10 (6-26); Bilirubin,Total 0.3 mg/dL (0.2-1.2); Blood Urea Nitrogen 10 mg/dL (8-26); Calcium 8.4 mg/dL (8.6-10.8); Carbon Dioxide 25 mEq/L (19-29); Chloride 107 mEq/L (98-109); Globulin 3.7 g/dL (2.4-3.5); Glucose 121 mg/dL (70-99); Osmolality,Calculated 288 (280-300); Potassium 3.6 mEq/L (3.5-4.5); Sodium 139 mEq/L (136-145); Total Protein 6.4 g/dL (6.0-8.3); eGFR For African Americans > 60 (> 60); eGFR For Non-African Americans > 60 (> 60)
[2017-03-25] MEDS: *HR* Enoxaparin 40 MG/0.4 ML SYRINGE SQ SCH (06:10)
[2017-03-25] MEDS: Insulin LISPRO 300 UNITS/3 ML VIAL SQ SCH ×2 (07:52→12:06)
[2017-03-25] MEDS: Beclomethasone 80mcg MDI IH SCH (08:01)
[2017-03-25] MEDS: Cholecalciferol (D-3) 1,000 UNIT TABLET PO SCH (09:12)
[2017-03-25] MEDS: Nystatin Cream 15 GM TUBE TP SCH (09:12)
[2017-03-25] MEDS: Loratadine 10 MG TABLET PO SCH (09:12)
[2017-03-25] MEDS: Lactobacillus 1 EACH CAP.SPRINK PO SCH (09:12)
[2017-03-25] MEDS: Multivit/Ca/Min/Fe/FA 1 TAB TABLET PO SCH (09:12)
[2017-03-25] MEDS: Saline Nasal Spray 44 ML BOTTLE NS SCH (09:13)
[2017-03-25] MEDS: Fluticasone Propionate Nasal 50 MCG/SPRAY BOTTLE NS SCH (09:13)
[2017-03-25] MEDS: Nystatin POWDER 30 GM BOTTLE TP SCH (09:14)
[2017-03-25] MEDS: 0.9 % Sodium Chloride 1,000 ML IVC SCH (10:01)
[2017-03-25 11:18] VITALS: BP 120/75
--- NOTE | 2017-03-25 11:57 | Discharge Summary ---
<Raymond Foster - Last Filed: 03/25/17 15:00> Date of Encounter: 03/25/17 Time of Encounter: 09:00 - Discharge Diagnosis (1) Cellulitis of left lower extremity Priority: Primary Status: Acute (2) Diabetes 1.5, managed as type 2 Priority: Secondary Status: Acute (3) Leukocytosis Priority: Primary Status: Acute Qualifiers: Leukocytosis type: unspecified Qualified Code(s): D72.829 - Elevated white blood cell count, unspecified (4) Lower extremity edema Priority: Primary Status: Acute Qualifiers: Laterality: bilateral Qualified Code(s): R60.0 - Localized edema (5) UTI (urinary tract infection) Priority: Primary Status: Acute Qualifiers: Urinary tract infection type: site unspecified Hematuria presence: without hematuria Qualified Code(s): N39.0 - Urinary tract infection, site not specified (6) Decubitus ulcer of left ankle, stage 3 Priority: Primary Status: Chronic (7) Hyperlipidemia Priority: Secondary Status: Chronic Qualifiers: Hyperlipidemia type: mixed hyperlipidemia Qualified Code(s): E78.2 - Mixed hyperlipidemia (8) Spina bifida Priority: Secondary Status: Chronic Qualifiers: Spinal region: lumbosacral Presence of hydrocephalus: unspecified hydrocephalus presence Qualified Code(s): Q05.7 - Lumbar spina bifida without hydrocephalus (9) Hypothyroidism Priority: Secondary Status: Acute Qualifiers: Qualified Code(s): E03.9 - Hypothyroidism, unspecified - Discharge Medications Prescriptions: Doxycycline 100 mg PO BID 10 Days Nystatin Cream [Mycostatin Cream] 1 appl TP BID #1 tube Home Medications: Fluticasone Propionate Nasal [Flonase] 50 - 100 mcg NS DAILY 11/21/15 [History] Potassium Chloride 60 meq PO BID 11/21/15 [History] Rosuvastatin [Crestor] 20 mg PO HS 11/21/15 [History] Cholecalciferol (Vitamin D3) [Vitamin D3] 5,000 unit PO DAILY 11/12/16 [History] Fluticasone Propionate [Flovent Hfa] 2 puff IH BID 11/12/16 [History] Levothyroxine [Synthroid] 200 mcg PO DAILY 11/12/16 [History] Budesonide [Pulmicort Flexhaler 180mcg] 1 puff IH BID 03/08/17 [History] Lactobacillus Acidophilus/Fos [Acidophilus Probiotic Tablet] 1 cap PO DAILY 06/17 [History] Lansoprazole [Prevacid] 15 mg PO DAILY 03/08/17 [History] Loratadine [Claritin] 10 mg PO DAILY 03/08/17 [History] Multivitamin [One Daily Multivitamin] 1 tab PO DAILY 03/08/17 [History] Enalapril Maleate [Vasotec] 10 mg PO DAILY 03/23/17 [History] Ostomy Adhesive [Coloplast Paste Strip] 1 each MC AD 03/23/17 [History] Saline Nasal [place] [[place] Nasal [place]] 1 spray NS AD 03/23/17 [History] Doxycycline 100 mg PO BID 10 Days 03/25/17 [Rx] Nystatin Cream [Mycostatin Cream] 1 appl TP BID #1 tube 03/25/17 [Rx] Allergies/Adverse Reactions: Allergies adhesive Adverse Reaction (Verified 03/08/17 10:14) Blister Amoxicillin Adverse Reaction (Verified 03/08/17 10:14) Hives Oxaprozin [From Daypro] Adverse Reaction (Verified 03/08/17 10:14) Diarrhea Date of admission: 03/23/17 08:28 Primary care physician: Maria lEena An Consults: 03/23/17 08:46 Consult to Infectious Diseases [CONS] Routine Consulting Provider: Infectious Disease Yanet Reason for Consult: Current UTI and history of 5 UTIs in last year, last one with VRE and MRSA. Call Completed: Yes 03/23/17 13:47 Consult to Pharmacology Associate [CONS] Routine Comment: 03/23/17 14:08 Consult to Wound Care [CONS] Stat Reason for Consult: multiple wounds, yeast infection to buttocks and right breast Time Notified: 14:09 Call Completed: No 03/25/17 10:23 Consult to Invasive Line Access Team [CONS] Routine Reason for Consult: Limited IV access Line Type: EPIV Discharging clinician: Raymond Foster Anticipated date of discharge: 03/25/17 - Patient Status Disposition: Home Health Service Condition: Fair Functional capacity at discharge: uses cane/walker Overall status at discharge: patient is progressing back to baseline - Discharge Instructions Instructions: Doxycycline (By mouth), Nystatin (On the skin), Urinary Tract Infection in Men (DC) Follow Up With: Maria Elena An MD [Primary Care Provider] - 04/01/17 1:45 pm Additional Instructions: complete antibiotic course Follow up with PCP in the next 3-5 days for re-evaluation. - Diet and Activity Activity: increase activity as tolerated Diet: diabetic diet Interval History: Mr. Leone is a 47 year old male who presents from the ED with a UTI and lower leg edema and erythema, worse on the left leg. He was admitted to general medical floor with concerns of cellulitis left lower extremity and urinary tract infection. His original antibiotic coverage included Zyvox and meropenem. He was started on IV fluids. Urine culture grew Providencia stuartii. On day 1 of his inpatient mission his antibiotic coverage was adjusted to vancomycin with renal dosing. There was also concern for potential fungal infection of the lower left extremity and he is started on nystatin cream. His vitals remained stable he tolerated by mouth intake his laboratory results and improved with resolution of his leukocytosis. On day 3 he was seen and evaluated by physical therapy and deemed stable for discharge home with home health recommendations. His erythema improved significantly with lower extremity is continued on antibiotic coverage for left lower extremities cellulitis with doxycycline twice a day for 10 days and Nystatin cream. He is recommended to follow up with PCP in the next 3-5 days for re-evaluation. Hospital course: Mr. Leone is a 47 year old male - Time Spent with Patient Total time spent providing and/or coordinating discharge services: - Constitutional Vitals: Temp Pulse Resp BP Pulse Ox 97.9 F 86 16 120/75 99 03/25/17 11:13 03/25/17 11:13 03/25/17 11:13 03/25/17 11:13 03/25/17 11:13 General appearance: Present: cooperative, A&O X 3, morbidly obese, pleasant, no acute distress, obese, answers questions appropriately Exam: Gen: Alert awake oriented interactive no acute distress. HEENT normocephalic, atraumatic, pupils equal and reactive, nasal cavity. oral mucosa moist, poor dentition with gingivitis. Neck supple trachea midline no palpable lymphadenopathy Chest/pulmonary: Clear to auscultation bilateral, thoracic cavity demonstrates symmetric expansion correlating respiratory effort. No cyanosis appreciated on examination Cardiac: Regular rate and rhythm positive S1-S2 no murmurs or gallops appreciated negative for bruits, radial pulses 2+ bilateral. Abdomen: Obese, soft, nontender to palpation, urostomy bag and lower right quadrant with frothy white/yellow urine. Extremities: Bilateral lower extremities have 4+ pitting edema with left side > right side and edema. Left lower extremity demonstrates improving erythema and warmth along the lateral aspect of the distal lower extremity associated with small furuncles and small blisters. Bilateral toenails demonstrate onychodystrophy. <OwenMedinaNhungBecky - Last Filed: 03/25/17 17:55> Date of Encounter: 03/25/17 Date of admission: 03/23/17 08:28 Primary care physician: Maria Elena An Consults: 03/23/17 08:46 Consult to Infectious Diseases [CONS] Routine Consulting Provider: Infectious Disease Yanet Reason for Consult: Current UTI and history of 5 UTIs in last year, last one with VRE and MRSA. Call Completed: Yes 03/23/17 13:47 Consult to Pharmacology Associate [CONS] Routine Comment: 03/23/17 14:08 Consult to Wound Care [CONS] Stat Reason for Consult: multiple wounds, yeast infection to buttocks and right breast Time Notified: 14:09 Call Completed: No 03/25/17 10:23 Consult to Invasive Line Access Team [CONS] Routine Reason for Consult: Limited IV access Line Type: EPIV Hospital course: Mr. Leone is a 47 year old male - Time Spent with Patient Total time spent providing and/or coordinating discharge services: - Constitutional Vitals: Temp Pulse Resp BP Pulse Ox 97.9 F 86 16 120/75 99 03/25/17 11:13 03/25/17 11:13 03/25/17 11:13 03/25/17 11:13 03/25/17 11:13 - Attending Attestation I examined this patient and reviewed laboratory, imaging and all diagnostic data. My medical decision-making was reviewed with Dr Foster - Resident Physician. I agree with the documented findings, disposition and treatment plan as described above
--- NOTE | 2017-03-25 12:01 | Physician Discharge Referral ---
Home Health/Hosp Referral Info Transfer to: Home Health - Diagnosis (1) Cellulitis of left lower extremity Priority: Primary Status: Acute (2) Diabetes 1.5, managed as type 2 Priority: Secondary Status: Acute (3) Leukocytosis Priority: Primary Status: Acute (4) Lower extremity edema Priority: Primary Status: Acute (5) UTI (urinary tract infection) Priority: Primary Status: Acute (6) Decubitus ulcer of left ankle, stage 3 Priority: Primary Status: Chronic (7) Hyperlipidemia Priority: Secondary Status: Chronic (8) Spina bifida Priority: Secondary Status: Chronic (9) Hypothyroidism Priority: Secondary Status: Acute - Respiratory Orders Smoking Cessation: Smoking cessation has been advised. For more information, call the [place] Tobacco Quit Line at 4-076-DGUN-NOW. - Diet/Nutrition Diet/Nutrition: List: diabetic - Activity Activity Orders: Ambulate, Walker - Services Needed Following services are medically necessary services: Nursing, Home Health Aide, Physical Therapy, Occupational Therapy - Transfer Medications Prescriptions: Doxycycline 100 mg PO BID 10 Days Nystatin Cream [Mycostatin Cream] 1 appl TP BID #1 tube Home Medications: Fluticasone Propionate Nasal [Flonase] 50 - 100 mcg NS DAILY 11/21/15 [History] Potassium Chloride 60 meq PO BID 11/21/15 [History] Rosuvastatin [Crestor] 20 mg PO HS 11/21/15 [History] Cholecalciferol (Vitamin D3) [Vitamin D3] 5,000 unit PO DAILY 11/12/16 [History] Fluticasone Propionate [Flovent Hfa] 2 puff IH BID 11/12/16 [History] Levothyroxine [Synthroid] 200 mcg PO DAILY 11/12/16 [History] Budesonide [Pulmicort Flexhaler 180mcg] 1 puff IH BID 03/08/17 [History] Lactobacillus Acidophilus/Fos [Acidophilus Probiotic Tablet] 1 cap PO DAILY 06/17 [History] Lansoprazole [Prevacid] 15 mg PO DAILY 03/08/17 [History] Loratadine [Claritin] 10 mg PO DAILY 03/08/17 [History] Multivitamin [One Daily Multivitamin] 1 tab PO DAILY 03/08/17 [History] Enalapril Maleate [Vasotec] 10 mg PO DAILY 03/23/17 [History] Ostomy Adhesive [Coloplast Paste Strip] 1 each AD 03/23/17 [History] Saline Nasal [place] [[place] Nasal [place]] 1 spray NS AD 03/23/17 [History] Doxycycline 100 mg PO BID 10 Days 03/25/17 [Rx] Nystatin Cream [Mycostatin Cream] 1 appl TP BID #1 tube 03/25/17 [Rx] Allergies/Adverse Reactions: Allergies adhesive Adverse Reaction (Verified 03/08/17 10:14) Blister Amoxicillin Adverse Reaction (Verified 03/08/17 10:14) Hives Oxaprozin [From Daypro] Adverse Reaction (Verified 03/08/17 10:14) Diarrhea Certification: Further, I certify that my clinical findings support that this patient is homebound (i.e. absences from home require considerable and taxing effort and are for medical reasons or scientology services or infrequently or short duration when for other reasons) because: Homebound Reason: Patient requires assistance of a person or device to safely leave home, Leaving home requires considerable and taxing effort due to condition Attestation: My signature below is to certify that this patient is under my care and that I, or nurse practitioner, or a physician's ophthalmic surgical assistant working with me, has a face-to -face encounter with this patient.
[2017-03-25] MEDS: [UNRECOGNIZED DRUG - SUPPLY] TP SCH (12:06)
[2017-03-25] MEDS ORDERED: Vancomycin 1,250 MG in D5% in Water 250 ML IVPB SCH (17:00)
[2017-03-25] MEDS ORDERED: Aminoglycoside Consult 1 EACH MC ONE (17:39)
[2017-03-25] MEDS ORDERED: Ertapenem 1,000 MG in 0.9 % Sodium Chloride Mini Bag 100 ML IVPB SCH (18:00)
== END 2017-03-25 17:40 | disposition home health service (06) | DRG 602 ==
LOC: 3BNU 23:18 → EMEROO 23:18 → 3BNU 03-23 06:06 → SUATTDRO 03-23 08:28
PROVIDERS: ADMIT Internal Medicine; ATTEND Internal Medicine

== ENCOUNTER 2017-04-14 22:20 | Inpatient (IN) ==
[2017-04-14] MEDS ORDERED: Aspirin 81 MG TAB.CHEW PO ONE (23:52)
[2017-04-15 00:15] LABS: Basophils # 0.1 K/mcL (0.0-0.2); Basophils % 0.5 %; Eosinophils # 0.6 K/mcL (0.0-0.6); Hematocrit 43.7 % (37.5-50.1); Hemoglobin 13.7 g/dL (12.9-16.9); Immature Granulocytes % 0.4 % (0-4); Lymphocytes # 2.6 K/mcL (0.6-4.6); Lymphocytes % 17.4 %; Mean Corpuscular HGB Conc 31.4 g/dL (31.6-35.5); Mean Corpuscular Hemoglobin 27.2 pg (28.0-33.3); Mean Corpuscular Volume 86.9 fL (83.0-100.0); Monocytes # 1.1 K/mcL (0.0-1.3); Monocytes % 7.5 %; Neutrophils # 10.4 K/mcL (1.6-8.9); Platelet Count 344 K/mcL (140-400); Red Blood Count 5.03 M/mcL (4.19-5.50); Red Cell Distribution Width 16.1 % (11.5-14.5); Segmented Neutrophils % 70.2 %
[2017-04-15 00:21] LABS: INR 1.1; Prothrombin Time 12.4 Seconds (9.4-12.1)
[2017-04-15 00:23] LABS: Activated Partial Thrombo Time 30.7 Seconds (26.0-36.0)
[2017-04-15 00:30] LABS: BUN/Creatinine Ratio 16 (6-26); Blood Urea Nitrogen 21 mg/dL (8-26); Calcium 9.1 mg/dL (8.6-10.8); Carbon Dioxide 24 mEq/L (19-29); Chloride 104 mEq/L (98-109); Glucose 108 mg/dL (70-99); Osmolality,Calculated 294 (280-300); Potassium 3.8 mEq/L (3.5-4.5); Sodium 140 mEq/L (136-145); eGFR For African Americans > 60 (> 60); eGFR For Non-African Americans > 60 (> 60)
--- NOTE | 2017-04-15 00:41 | Emergency Department Note ---
Disposition Clinical Impression: Cellulitis of left lower extremity Lower extremity edema Qualifiers: Laterality: left Qualified Code(s): R60.0 - Localized edema Decubitus ulcer of left buttock Qualifiers: Pressure ulcer stage: unspecified pressure ulcer stage Qualified Code(s): L89.329 - Pressure ulcer of left buttock, unspecified stage Leukocytosis Qualifiers: Leukocytosis type: unspecified Qualified Code(s): D72.829 - Elevated white blood cell count, unspecified Disposition: Admitted As Inpatient Condition: Fair Time of Disposition: 04:01 Extremity Problem HPI - General Chief complaint: ED Extremity Problem,Nontraumatic Stated complaint: Left leg injury Time Seen by Provider: 04/14/17 23:05 Source: patient Limitations: no limitations Nursing Notes Reviewed: Yes Vital Signs Reviewed: Yes - History of Present Illness HPI Narrative: Patient presents emergency room with complaint of lower extremity pain swelling and progression of symptoms. He denies chest pain at this time. He has had intermittent chest pain over the last several days. Patient has chronic lymphedema secondary to vascular related issues. He is also concerned because there is blood on his sheets this morning. Denies fevers or chills. Has had intermittent chest discomfort. Denies shortness of breath nausea vomiting or diarrhea. No other symptoms or issues on arrival here. Pt Subjective Complaint: extremity pain Onset (ago): day(s) Consistency: constant Injury Location: left, lower extremity Pain Scale: 5 Quality: aching Radiation: other (Entire leg) Improves with: nothing Worsens with: range of motion, weight bearing, walking, palpation Associated symptoms: Reports: chest pain, swelling, redness. Denies: shortness of breath, abdominal pain, back pain, bowel/bladder symptoms, fever, myalgias, arthralgias, rash - Related Data Home Medications Medication Instructions Recorded Confirmed Fluticasone Propionate Nasal 50 - 100 mcg NS DAILY 11/21/15 03/23/17 [Flonase] Potassium Chloride 60 meq PO BID 11/21/15 03/23/17 Rosuvastatin [Crestor] 20 mg PO HS 11/21/15 03/23/17 Cholecalciferol (Vitamin D3) 5,000 unit PO DAILY 11/12/16 03/23/17 [Vitamin D3] Fluticasone Propionate [Flovent 2 puff IH BID 11/12/16 03/23/17 Hfa] Levothyroxine [Synthroid] 200 mcg PO DAILY 11/12/16 03/23/17 Budesonide [Pulmicort Flexhaler 1 puff IH BID 03/08/17 03/23/17 180mcg] Lactobacillus Acidophilus/Fos 1 cap PO DAILY 03/08/17 03/23/17 [Acidophilus Probiotic Tablet] Lansoprazole [Prevacid] 15 mg PO DAILY 03/08/17 03/23/17 Loratadine [Claritin] 10 mg PO DAILY 03/08/17 03/23/17 Multivitamin [One Daily 1 tab PO DAILY 03/08/17 03/23/17 Multivitamin] Enalapril Maleate [Vasotec] 10 mg PO DAILY 03/23/17 03/23/17 Ostomy Adhesive [Coloplast Paste 1 each MC AD 03/23/17 03/23/17 Strip] Saline Nasal [place] [[place] Nasal 1 spray NS AD 03/23/17 04/15/17 [place]] Previous Rx's Medication Instructions Recorded Doxycycline 100 mg PO BID 10 Days 03/25/17 Nystatin Cream [Mycostatin Cream] 1 appl TP BID #1 tube 03/25/17 Allergies Allergy/AdvReac Type Severity Reaction Status Date / Time adhesive AdvReac Blister Verified 03/08/17 10:14 Amoxicillin AdvReac Hives Verified 03/08/17 10:14 Oxaprozin [From Daypro] AdvReac Diarrhea Verified 03/08/17 10:14 All systems ED: reviewed and negative except as stated. Constitutional: Denies: fever, chills Cardiovascular: Reports: chest pain, edema. Denies: palpitations, dyspnea on exertion, orthopnea Respiratory: Denies: dyspnea, wheezes Gastrointestinal: Denies: abdominal pain, nausea, vomiting, diarrhea Musculoskeletal: Denies: back pain, neck pain Past Medical History - Past Medical History Attestation: Yes The following information was validated with the patient. Source: patient Medical history: Reports: arthritis, asthma, cancer, CVA, diabetes, GERD, hyperlipidemia, hypertension, thyroid disease, other Surgical history: Reports: appendectomy, orthopedic, other, vasectomy, other Psychiatric history: Reports: depression - Social History Smoking Status: Never smoker Smokeless Tobacco Status: No Alcohol use: Reports: none Drug use: Reports: none Physical Exam - General Limitations: no limitations General appearance: alert, in no apparent distress - Head Head exam: atraumatic, normocephalic, normal inspection - Neck Neck exam: Present: normal inspection, full ROM, trachea midline - Chest Chest inspection: Present: normal inspection, symmetric chest wall rise - Respiratory Respiratory exam: Present: normal lung sounds bilaterally - Cardiovascular Cardiovascular exam: Present: regular rate, normal rhythm, normal heart sounds - Abdominal Exam Abdominal exam: Present: soft, Non-Tender, normal bowel sounds. Absent: tenderness, distention, guarding, rebound, rigidity - Extremities Exam Extremities exam: Present: pedal edema - Back Exam Back exam: Present: normal inspection - Neurological Exam Neurological exam: Present: alert, oriented X3, CN II-XII intact, normal gait - Skin Skin exam: Present: warm, dry, intact, normal color Course Course Narrative: Patient seen and examined the time of arrival. See history of present illness. 47-year-old male who is well known to this emergency room presents today for evaluation of lower extremity edema swelling and pain along with blood. Patient was just discharged from the hospital at the beginning of this month we are treated for cellulitis in that extremity. He has long-standing vascular related issues secondary to spina bifida and related complications. Patient is not as mobile R ambulatory as he typically is at this point. He has noticed increased swelling in the left lower leg. He did just complete a treatment course of doxycycline several days ago. Currently he has intermittent chest discomfort but is chest pain-free here in the emergency room. He has no complaints of shortness of breath nausea vomiting diarrhea fevers or chills headache or vision changes at this time. Patient on physical exam is morbidly obese and chronically ill. Head is atraumatic lungs have decreased aeration secondary to poor respiratory effort. Heart is regular. Abdomen is soft nontender nondistended. There is no ostomy bag in place that appears to be where his urine is collected. He has no other acute pathology. Physical exam of the lower extremities most concerning area. He has multiple areas over the posterior aspect of the buttock bilaterally with increased hypertrophic skin with redness and irritation and several areas of superficial skin deterioration. A shunt has this extension down into the mid leg bilaterally. He also has an ulcer on the posterior aspect of the left foot. Patient is poor physical hygiene at this point his feet are black and dirty bilaterally. EKG reviewed at this time showing sinus rhythm tachycardic in presentation. Morphology appears to be stable from EKG that was reviewed from . EKG is read with possible lateral and inferior myocardial ischemia but it is a stable examination from prior. Patient does not have any chest pain this time. Cardiac evaluation including troponin and labs are ordered at this point along with a BNP. Patient had urinalysis also completed. Lower extremity does not show any acute signs of cellulitis but it is concerning for progression of his vascular insufficiency and fluid accumulation. ESR also ordered to make sure there is no signs of acute bony deterioration. No antibiotic regimen ordered at this point. Patient to have disposition treatment course completed by the nighttime physicians. I discussed the patient with Dr. Hayden and he will review the patient's physical exam and medical intervention. We will continue to monitor here while treatment course is completed. Patient is stable at this point. Vital Signs Temperature 99.6 F 04/14/17 22:38 Pulse Rate 117 04/14/17 22:38 Respiratory Rate 18 04/14/17 22:38 Blood Pressure 151/75 04/14/17 22:38 O2 Sat by Pulse Oximetry 97 04/14/17 22:38 Temperature 99.6 F 04/14/17 22:38 Pulse Rate 102 04/15/17 01:49 Respiratory Rate 16 04/15/17 03:57 Blood Pressure 118/69 04/15/17 03:57 O2 Sat by Pulse Oximetry 96 04/15/17 01:49 Oxygen Delivery Oxygen Delivery Room Air Extremity Problem, Nontraumati - MDM Narrative Medical decision making narrative: Lower extremity edema, superficial skin excoriations, poor physical hygiene, chest discomfort - Medical Records Medical records reviewed: Yes I reviewed the patient's medical records. - Lab Data Lab results reviewed: Yes I reviewed the patient's lab results. Result diagrams: 04/15/17 00:10 04/15/17 00:10 Lab Results 04/15/17 04/15/17 04/15/17 Range/Units 00:10 00:10 00:10 WBC (4.3-11.1) K/mcL RBC (4.19-5.50) M/mcL Hgb (12.9-16.9) g/dL Hct (37.5-50.1) % MCV (83.0-100.0) fL MCH (28.0-33.3) pg MCHC (31.6-35.5) g/dL RDW (11.5-14.5) % Plt Count (140-400) K/mcL MPV (9.4-12.4) fL Immature Gran % (0-4) % Seg Neutrophils % % Lymphocytes % % Monocytes % % Eosinophils % % Basophils % % Neutrophils # (1.6-8.9) K/mcL Lymphocytes # (0.6-4.6) K/mcL Monocytes # (0.0-1.3) K/mcL Eosinophils # (0.0-0.6) K/mcL Basophils # (0.0-0.2) K/mcL ESR 68 H (0-10) mm/hr PT 12.4 H (9.4-12.1) Seconds INR 1.1 APTT 30.7 (26.0-36.0) Seconds Sodium (136-145) mEq/L Potassium (3.5-4.5) mEq/L Chloride (98-109) mEq/L Carbon Dioxide (19-29) mEq/L BUN (8-26) mg/dL Creatinine (0.72-1.25) mg/dL Est GFR ( Amer) (> 60) Est GFR (Non-Af Amer) (> 60) BUN/Creatinine Ratio (6-26) Glucose (70-99) mg/dL Calculated Osmolality (280-300) Calcium (8.6-10.8) mg/dL Troponin I (0-0.03) ng/mL B-Natriuretic Peptide < 10 (0-100) pg/mL Urine Color (Yellow) Urine Clarity (Clear) Urine pH (5.0-8.0) pH Units Ur Specific [place] (1.010-1.025) Urine Protein (Neg-Trace) mg/dL Urine Glucose (UA) (Normal) mg/dL Urine Ketones (Negative) mg/dL Urine Blood (Negative) Urine Nitrite (Negative) Urine Bilirubin (Negative) Urine Urobilinogen (Normal) mg/dL Ur Leukocyte Esterase (Negative) Urine Microscopic RBC (0-3) per hpf Urine Microscopic WBC (0-3) per hpf Ur Squamous Epith Cells (None-Few) per lpf Urine Bacteria (None-Few) per hpf Hyaline Casts (None-Few) per lpf Ur Culture Indicated? (NO) 04/15/17 04/15/17 04/15/17 Range/Units 00:10 00:10 00:10 WBC 14.9 H (4.3-11.1) K/mcL RBC 5.03 (4.19-5.50) M/mcL Hgb 13.7 (12.9-16.9) g/dL Hct 43.7 (37.5-50.1) % MCV 86.9 (83.0-100.0) fL MCH 27.2 L (28.0-33.3) pg MCHC 31.4 L (31.6-35.5) g/dL RDW 16.1 H (11.5-14.5) % Plt Count 344 (140-400) K/mcL MPV 10.0 (9.4-12.4) fL Immature Gran % 0.4 (0-4) % Seg Neutrophils % 70.2 % Lymphocytes % 17.4 % Monocytes % 7.5 % Eosinophils % 4.0 % Basophils % 0.5 % Neutrophils # 10.4 H (1.6-8.9) K/mcL Lymphocytes # 2.6 (0.6-4.6) K/mcL Monocytes # 1.1 (0.0-1.3) K/mcL Eosinophils # 0.6 (0.0-0.6) K/mcL Basophils # 0.1 (0.0-0.2) K/mcL ESR (0-10) mm/hr PT (9.4-12.1) Seconds INR APTT (26.0-36.0) Seconds Sodium 140 (136-145) mEq/L Potassium 3.8 (3.5-4.5) mEq/L Chloride 104 (98-109) mEq/L Carbon Dioxide 24 (19-29) mEq/L BUN 21 (8-26) mg/dL Creatinine 1.28 H (0.72-1.25) mg/dL Est GFR ( Amer) > 60 (> 60) Est GFR (Non-Af Amer) > 60 (> 60) BUN/Creatinine Ratio 16 (6-26) Glucose 108 H (70-99) mg/dL Calculated Osmolality 294 (280-300) Calcium 9.1 (8.6-10.8) mg/dL Troponin I 0.01 (0-0.03) ng/mL B-Natriuretic Peptide (0-100) pg/mL Urine Color (Yellow) Urine Clarity (Clear) Urine pH (5.0-8.0) pH Units Ur Specific [place] (1.010-1.025) Urine Protein (Neg-Trace) mg/dL Urine Glucose (UA) (Normal) mg/dL Urine Ketones (Negative) mg/dL Urine Blood (Negative) Urine Nitrite (Negative) Urine Bilirubin (Negative) Urine Urobilinogen (Normal) mg/dL Ur Leukocyte Esterase (Negative) Urine Microscopic RBC (0-3) per hpf Urine Microscopic WBC (0-3) per hpf Ur Squamous Epith Cells (None-Few) per lpf Urine Bacteria (None-Few) per hpf Hyaline Casts (None-Few) per lpf Ur Culture Indicated? (NO) 04/15/17 Range/Units 00:45 WBC (4.3-11.1) K/mcL RBC (4.19-5.50) M/mcL Hgb (12.9-16.9) g/dL Hct (37.5-50.1) % MCV (83.0-100.0) fL MCH (28.0-33.3) pg MCHC (31.6-35.5) g/dL RDW (11.5-14.5) % Plt Count (140-400) K/mcL MPV (9.4-12.4) fL Immature Gran % (0-4) % Seg Neutrophils % % Lymphocytes % % Monocytes % % Eosinophils % % Basophils % % Neutrophils # (1.6-8.9) K/mcL Lymphocytes # (0.6-4.6) K/mcL Monocytes # (0.0-1.3) K/mcL Eosinophils # (0.0-0.6) K/mcL Basophils # (0.0-0.2) K/mcL ESR (0-10) mm/hr PT (9.4-12.1) Seconds INR APTT (26.0-36.0) Seconds Sodium (136-145) mEq/L Potassium (3.5-4.5) mEq/L Chloride (98-109) mEq/L Carbon Dioxide (19-29) mEq/L BUN (8-26) mg/dL Creatinine (0.72-1.25) mg/dL Est GFR ( Amer) (> 60) Est GFR (Non-Af Amer) (> 60) BUN/Creatinine Ratio (6-26) Glucose (70-99) mg/dL Calculated Osmolality (280-300) Calcium (8.6-10.8) mg/dL Troponin I (0-0.03) ng/mL B-Natriuretic Peptide (0-100) pg/mL Urine Color Yellow (Yellow) Urine Clarity Cloudy A (Clear) Urine pH 7.5 (5.0-8.0) pH Units Ur Specific [place] 1.023 (1.010-1.025) Urine Protein 100 H (Neg-Trace) mg/dL Urine Glucose (UA) Normal (Normal) mg/dL Urine Ketones Negative (Negative) mg/dL Urine Blood Large H (Negative) Urine Nitrite Positive A (Negative) Urine Bilirubin Negative (Negative) Urine Urobilinogen Normal (Normal) mg/dL Ur Leukocyte Esterase Moderate H (Negative) Urine Microscopic RBC 50-100 H (0-3) per hpf Urine Microscopic WBC 30-50 H (0-3) per hpf Ur Squamous Epith Cells Many H (None-Few) per lpf Urine Bacteria Many H (None-Few) per hpf Hyaline Casts Moderate H (None-Few) per lpf Ur Culture Indicated? YES A (NO) - Radiology Data Radiology results reviewed: Yes I reviewed the patient's radiology results. - EKG Data EKG attestation: Yes I reviewed and interpreted this EKG. EKG shows normal: sinus rhythm, axis, intervals, QRS complexes, ST-T waves Rate: tachycardia Rhythm: NSR [place]/QRS: normal When compared to previous EKG there are: no significant changes Interpretation: no acute changes, unchanged when compared to prior tracing (date ) (02/08/17. EKG is read by the computer with possible lateral and inferior ischemic changes. The EKG is reviewed by myself showing no acute signs of contiguous elevations or reciprocal changes. It is similar in comparison EKG on 02/08/17.) Attestation Statement - Attestation Attestation: I, Zhen Hayden MD, personally evaluated this patient and discussed their management with the resident physician. I reviewed the resident's note and agree with the documented findings, medical decision making, and plan of care. 47-year-old male with history of spina bifida and chronic lymphedema of lower extremities presents with a complaint of increased pain and redness and swelling of the left lower extremity. He complains of pain in the left buttock and posterior left thigh area. Some chills and subjective fever. Patient has a history of recurrent cellulitis of the left leg and just finished antibiotics 3 days ago. On examination patient is awake alert and oriented 3. No cyanosis or diaphoresis. He is in no distress. Breath sounds are clear and equal bilaterally. Heart regular rate and rhythm. Abdomen soft and nontender with normal bowel sounds. There is chronic lymphedema of both lower extremities but the left lower extremity is larger than the right with more erythema and tenderness on palpation. There is also moderate induration area the leg is warm to touch. There is an area of skin breakdown on the posterior proximal left thigh and left buttock area. Very foul odor and drainage. Labs reviewed. Blood culture obtained and antibiotics initiated. The hospitalist, Dr. Gabriel, was consulted and accepted admission of the patient.
[2017-04-15 01:12] LABS: Bilirubin,Urine Negative (Negative); Blood,Urine Large (Negative); Clarity,Urine Cloudy (Clear); Color,Urine Yellow (Yellow); Glucose,Urine (UA) Normal (Normal); Ketones,Urine Negative (Negative); Leukocyte Esterase,Urine Moderate (Negative); Nitrite,Urine Positive (Negative); PH,Urine 7.5 pH Units (5.0-8.0); Protein,Urine 100 mg/dL (Neg-Trace); Specific Gravity,Urine 1.023 (1.010-1.025); Urobilinogen,Urine Normal (Normal)
[2017-04-15 01:14] LABS: Bacteria,Urine Many per hpf (None-Few); Hyaline Casts,Urine Moderate per lpf (None-Few); RBC,Urine 50-100 per hpf (0-3); Squamous Epithelial Cell,Urine Many per lpf (None-Few); WBC,Urine 30-50 per hpf (0-3)
[2017-04-15] MEDS ORDERED: Vancomycin 1,000 MG in D5% in Water 250 ML IVPB ONE (01:43)
[2017-04-15] MEDS ORDERED: Acetaminophen 325 MG TABLET PO PRN (05:45)
[2017-04-15] MEDS ORDERED: Naloxone 0.4 MG/ML INJ IVP PRN (05:45)
[2017-04-15] MEDS ORDERED: *HR* OxyCODONE Immed Rel 5 MG TABLET PO PRN (05:45)
--- NOTE | 2017-04-15 05:58 | Internal Med History&Physical ---
<Trey Virgen - Last Filed: 04/15/17 05:52> Date of Encounter: 04/15/17 Time of Encounter: 05:53 Assessment and Plan (1) Lower extremity edema Current visit: No Status: Acute Patient does have a history of chronic venous insufficiency and lymphedema however his legs are erythematous and warm. There is concern for cellulitis. Patient has had multiple antibiotic exposures in the past and is high risk for resistant organisms. Blood cultures pending. Will treat with vancomycin and Zosyn. If patient fails to improve he may benefit from an infectious disease consult.. Qualifiers: Laterality: bilateral Qualified Code(s): R60.0 - Localized edema (2) Decubitus ulcer of left buttock Current visit: Yes Status: Acute Patient has excoriations to his posterior thighs and buttocks. These may be pressure related but the patient does ambulate. These appear to be more inflammatory than infectious at this time. We will consult wound care. ESR is elevated, we will check CRP. If patient fails to improve he may benefit from a rheumatology consult for inflammatory ulcerations. Qualifiers: Pressure ulcer stage: unspecified pressure ulcer stage Qualified Code(s): L89.329 - Pressure ulcer of left buttock, unspecified stage (3) Spina bifida Current visit: No Status: Chronic History of. Patient uses crutches and braces however he is unable to versus on due to significant lower extremity edema. Qualifiers: Spinal region: lumbosacral Presence of hydrocephalus: unspecified hydrocephalus presence Qualified Code(s): Q05.7 - Lumbar spina bifida without hydrocephalus (4) Essential hypertension Current visit: No Status: Chronic Stable. Continue home medications. (5) Hyperlipidemia Current visit: No Status: Chronic Continue statin. Qualifiers: Hyperlipidemia type: mixed hyperlipidemia Qualified Code(s): E78.2 - Mixed hyperlipidemia (6) Hypothyroidism Current visit: No Status: Chronic Continue Synthroid. Qualifiers: Hypothyroidism type: acquired Qualified Code(s): E03.9 - Hypothyroidism, unspecified (7) History of urostomy Current visit: No Status: Chronic With colonization with multiple drug-resistant organisms. Patient has no urinary symptoms at this time. Will not treat urinary symptoms or urinalysis at this time. (8) DVT prophylaxis Current visit: No Status: Acute Heparin 5000 units subcutaneous twice a day. Internal Medicine - H&P: HPI Chief complaint: Lower extremity swelling Admitted From: Emergency Dept Plans for Post Hospital Care: Home History of present illness: Mr. Leone is a 47 year old male with history of spina bifida and chronic lymphedema presents with lower extremity swelling. Patient states the swelling going on for months and has been admitted multiple times per similar issues. Patient states he was admitted about 3 weeks ago for lotion swelling and treated for cellulitis and recently completed doxycycline. Patient states that his symptoms worsened at home and he is developed ulcerations on the back of his legs and buttocks that he noticed bleeding from and thought he noticed pus coming from. He denies fever, chills, chest pain, shortness of breath, nausea, vomiting, diarrhea. Past Med Surg Social Fam HX - Past Medical History Medical history: arthritis, asthma, cancer, CVA, diabetes, GERD, hyperlipidemia , hypertension, thyroid disease, other Psychiatric history: depression - Past Surgical History Surgical History: appendectomy, orthopedic, other, vasectomy, other - Social History Smoking Status: Never smoker Smokeless Tobacco Status: No Alcohol use: none Drug use: none - Family History Mother Family Member Ethnicity: Non- Living Status: Still Living Hx Family Cardiac Disorders: Yes (HTN) Hx Family Endocrine Disorder: Yes (DM) Hx Family Neurologic Disorders: Yes (Dementia) Sister Family Member Ethnicity: Non- Living Status: Still Living Hx Family Cardiac Disorders: Yes (HTN) Hx Family Endocrine Disorder: Yes (DM, thyroid) Brother Family Member Ethnicity: Non- Living Status: Still Living Hx Family Cardiac Disorders: Yes (HTN) Father Family Member Ethnicity: Non- Living Status: Hx Family Cardiac Disorders: Yes (CHF, HTN) Hx Family Respiratory Disorders: Yes (Asthma, emphysema) Hx Family Cancer: Yes (Lung) Hx Family GI Disorders: No Hx Family Endocrine Disorder: Yes Hx Family Neuromuscular Disorders: No Hx Family Neurologic Disorders: No Hx Family HEENT Disorders: No Hx Family Autoimmune Disorders: No Internal Medicine - H&P: Meds Fluticasone Propionate Nasal [Flonase] 1 spray NS DAILY 11/21/15 [History] Potassium Chloride 60 meq PO BID 11/21/15 [History] Rosuvastatin [Crestor] 20 mg PO HS 11/21/15 [History] Cholecalciferol (Vitamin D3) [Vitamin D3] 5,000 unit PO DAILY 11/12/16 [History] Fluticasone Propionate [Flovent Hfa] 2 puff IH BID 11/12/16 [History] Levothyroxine [Synthroid] 200 mcg PO DAILY 11/12/16 [History] Budesonide [Pulmicort Flexhaler 180mcg] 1 puff IH BID 03/08/17 [History] Lactobacillus Acidophilus/Fos [Acidophilus Probiotic Tablet] 1 cap PO DAILY 06/17 [History] Lansoprazole [Prevacid] 15 mg PO DAILY 03/08/17 [History] Loratadine [Claritin] 10 mg PO DAILY 03/08/17 [History] Multivitamin [One Daily Multivitamin] 1 tab PO DAILY 03/08/17 [History] Enalapril Maleate [Vasotec] 10 mg PO DAILY 03/23/17 [History] Ostomy Adhesive [Coloplast Paste Strip] 1 each MC AD 03/23/17 [History] Saline Nasal [place] [[place] Nasal [place]] 1 spray NS AD 03/23/17 [History] Doxycycline 100 mg PO BID 10 Days 03/25/17 [Rx] Nystatin Cream [Mycostatin Cream] 1 appl TP BID #1 tube 03/25/17 [Rx] Allergies adhesive Adverse Reaction (Verified 03/08/17 10:14) Blister Amoxicillin Adverse Reaction (Verified 03/08/17 10:14) Hives Oxaprozin [From Daypro] Adverse Reaction (Verified 03/08/17 10:14) Diarrhea All Systems PM: A 10-system review of systems was performed and is negative for pertinent findings except as documented above in the HPI. - Constitutional Constitutional: no chills, no fever(s) - EENT Eyes: no blurry vision, no change in vision - Cardiovascular Cardiovascular ROS IM: no chest pain, no dyspnea, no lightheadedness - Respiratory Respiratory: no cough, no dyspnea, no wheezing, no chest congestion, no excessive phlegm production, no change in phlegm color - Gastrointestinal Gastrointestinal: no abdominal pain, no diarrhea, no nausea, no vomiting - Genitourinary Genitourinary ROS male: difficulty urinating - Musculoskeletal Musculoskeletal ROS IM: deformity, myalgias - Integumentary Integumentary IM: erythema, new lesions, non-healing lesions, skin ulcer, sores - Neurological Neurological ROS: numbness, no confusion, no dizziness, no focal weakness, no frequent falls, no tingling - Hematologic/Lymphatic Hematologic/Lymphatic: other (Lymphedema), no easy bleeding, no easy bruising, no lymphadenopathy - Constitutional Vitals: Temp Pulse Resp BP Pulse Ox 98.3 F 100 18 101/68 99 04/15/17 04:55 04/15/17 04:55 04/15/17 04:55 04/15/17 04:55 04/15/17 04:55 General appearance: Present: A&O X 3, pleasant, no acute distress - Head Head exam: Present: atraumatic, normal inspection, normocephalic - Eye Eye exam: Present: EOMI, PERRL - ENT ENT exam: Present: mucous membranes moist - Respiratory Respiratory exam: Present: CTAB. Absent: rales, rhonchi, wheezes - Cardiovascular Cardiovascular exam: Present: RRR. Absent: gallop, rubs, systolic murmur - GI/Abdominal GI/Abdominal exam: Present: normal bowel sounds, soft. Absent: distended, tenderness - Extremities Exam Additional comments: Patient has significant lower extremity nonpitting edema. There is bilateral erythema and warmth present and there are multiple surgical scars that are well- healed. There is a crusted lesion on the back of the left calf that is nonbleeding and nondraining. Patient has multiple excoriations and inflammatory ulcers on the upper thighs and buttocks bilaterally. These have scant bloody discharge. There is no pustular drainage noted at this time. - Neurological Exam Neurological exam: Present: alert, CN II-XII intact, oriented X3, no focal deficits - Skin Skin exam: Present: erythema, excoriation, rash, warm Internal Med - H&P Results - Labs CBC & Chem 7: 04/15/17 00:10 04/15/17 00:10 <Rusty Jacobsen - Last Filed: 04/15/17 06:26> Date of Encounter: 04/15/17 - Constitutional Vitals: Temp Pulse Resp BP Pulse Ox 98.3 F 100 18 101/68 99 04/15/17 04:55 04/15/17 04:55 04/15/17 04:55 04/15/17 04:55 04/15/17 04:55 General appearance: Present: A&O X 3, pleasant, no acute distress - GI/Abdominal GI/Abdominal exam: Present: soft. Absent: tenderness - Extremities Exam Extremities exam: Present: tenderness, warm. Absent: calf tenderness Additional comments: redness, swelling, and tenderness along both lower legs (L>R) concerning for cellulitis and lymphedema. Some pustules noted but no abscesses. - Skin Additional comments: Inflammatory type rash/lesions along sacral and gluteal areas concerning for skin breakdown, ? nutritional deficiency, and/or collagen vascular process. Cellulits type process along bilateral lower legs. Internal Med - H&P Results - Labs CBC & Chem 7: 04/15/17 00:10 04/15/17 00:10 - Diagnostic Studies Chest x-ray Status: image reviewed by me (negative) - Attending Attestation I discussed the patient NOME, PMH, ROS, lab data, and exam findings with Dr. Virgen. I then saw and assessed patient independently as well. In particular , I focused on his legs/cellulitis and his inflammatory rash along his bottom and sacrum. Although not intensely red, I would treat his legs for cellulitis with Vancomycin and Zosyn and monitor closely. I would have a low threshold to image with MRI and/or CT. ESR is 68 and is less concerning for osteomyelitis and/or infected hardware. However, I worry he may need surgery down the road. Also, if he fails to improve, ID and rheumatology consultations may be beneficial. Other than my comments noted above and exam findings, I agree with Dr. Virgen's assessment and plan.
[2017-04-15] MEDS ORDERED: Vancomycin 2,000 MG in D5% in Water 250 ML IVPB SCH (06:00)
[2017-04-15] MEDS: Beclomethasone 80mcg MDI IH SCH ×2 (08:04→20:48)
[2017-04-15] MEDS: Loratadine 10 MG TABLET PO SCH (08:51)
[2017-04-15] MEDS: Lactobacillus 1 EACH CAP.SPRINK PO SCH (08:51)
[2017-04-15] MEDS: Cholecalciferol (D-3) 1,000 UNIT TABLET PO SCH (08:51)
[2017-04-15] MEDS: [UNRECOGNIZED DRUG - SUPPLY] MC SCH (08:52)
[2017-04-15] MEDS: Nystatin Cream 15 GM TUBE TP SCH ×2 (08:53→22:33)
[2017-04-15] MEDS: Piperacillin/Tazobactam 3.375 GM in D5% in Water (Mini-Bag+) 100 ML IVPB SCH ×2 (08:53→15:28)
[2017-04-15] MEDS: Fluticasone Propionate Nasal 50 MCG/SPRAY BOTTLE NS SCH (08:54)
[2017-04-15] MEDS ORDERED: NON-FORMULARY MEDICATION 1 EACH EACH (Fluticasone Propionate [Flovent Hfa] 2 PUFF) IH SCH (09:00)
[2017-04-15] MEDS: Vancomycin 2,000 MG in D5% in Water 500 ML IVPB SCH ×2 (14:06→22:33)
--- NOTE | 2017-04-15 15:41 | Electrocardiograph Report ---
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
[2017-04-15] MEDS: *HR* Heparin 5,000 UNIT/ML VIAL SQ SCH (17:32)
[2017-04-15] MEDS: Miconazole w/zinc oxide&karaya 92 APPL/92 GM TUBE TP SCH ×2 (17:33→22:32)
[2017-04-15] MEDS: Silvasorb 44.4 ML TUBE TP SCH (17:33)
[2017-04-16] MEDS: Piperacillin/Tazobactam 3.375 GM in D5% in Water (Mini-Bag+) 100 ML IVPB SCH ×3 (01:09→17:00)
[2017-04-16] MEDS: *HR* Heparin 5,000 UNIT/ML VIAL SQ SCH ×2 (05:07→17:01)
[2017-04-16] MEDS: [UNRECOGNIZED DRUG - SUPPLY] MC SCH (05:12)
[2017-04-16 05:45] LABS: Basophils # 0.1 K/mcL (0.0-0.2); Basophils % 0.8 %; Eosinophils # 0.7 K/mcL (0.0-0.6); Hematocrit 40.4 % (37.5-50.1); Hemoglobin 12.7 g/dL (12.9-16.9); Immature Granulocytes % 0.4 % (0-4); Lymphocytes # 1.6 K/mcL (0.6-4.6); Lymphocytes % 13.6 %; Mean Corpuscular HGB Conc 31.4 g/dL (31.6-35.5); Mean Corpuscular Volume 85.8 fL (83.0-100.0); Mean Platelet Volume 10.4 fL (9.4-12.4); Monocytes # 1.1 K/mcL (0.0-1.3); Monocytes % 9.6 %; Neutrophils # 8.3 K/mcL (1.6-8.9); Platelet Count 269 K/mcL (140-400); Red Blood Count 4.71 M/mcL (4.19-5.50); Red Cell Distribution Width 15.9 % (11.5-14.5); Segmented Neutrophils % 69.6 %
[2017-04-16 06:06] LABS: BUN/Creatinine Ratio 16 (6-26); Blood Urea Nitrogen 14 mg/dL (8-26); Carbon Dioxide 20 mEq/L (19-29); Chloride 108 mEq/L (98-109); Glucose 129 mg/dL (70-99); Magnesium 1.9 mg/dL (1.6-2.6); Osmolality,Calculated 288 (280-300); Sodium 138 mEq/L (136-145); eGFR For African Americans > 60 (> 60); eGFR For Non-African Americans > 60 (> 60)
[2017-04-16 06:13] LABS: Potassium 4.9 mEq/L (3.5-4.5)
[2017-04-16] MEDS: Beclomethasone 80mcg MDI IH SCH ×2 (08:08→20:47)
[2017-04-16] MEDS ORDERED: D5% in Water (Mini-Bag+) 100 ML IVPB ONE (09:15)
[2017-04-16] MEDS: Cholecalciferol (D-3) 1,000 UNIT TABLET PO SCH (09:17)
[2017-04-16] MEDS: Lactobacillus 1 EACH CAP.SPRINK PO SCH (09:18)
[2017-04-16] MEDS: Loratadine 10 MG TABLET PO SCH (09:23)
[2017-04-16] MEDS: Fluticasone Propionate Nasal 50 MCG/SPRAY BOTTLE NS SCH (09:34)
[2017-04-16] MEDS: Silvasorb 44.4 ML TUBE TP SCH (09:40)
[2017-04-16] MEDS: Miconazole w/zinc oxide&karaya 92 APPL/92 GM TUBE TP SCH ×2 (09:41→21:00)
[2017-04-16] MEDS: Nystatin Cream 15 GM TUBE TP SCH (09:41)
[2017-04-16] MEDS: Vancomycin 2,000 MG in D5% in Water 500 ML IVPB SCH (11:47)
[2017-04-17] MEDS: Vancomycin 1,500 MG in D5% in Water 250 ML IVPB SCH ×3 (00:27→23:41)
[2017-04-17] MEDS: Piperacillin/Tazobactam 3.375 GM in D5% in Water (Mini-Bag+) 100 ML IVPB SCH ×4 (00:28→23:41)
[2017-04-17] MEDS: *HR* Heparin 5,000 UNIT/ML VIAL SQ SCH ×2 (06:27→18:30)
[2017-04-17] MEDS: [UNRECOGNIZED DRUG - SUPPLY] MC SCH (06:28)
[2017-04-17] MEDS: Beclomethasone 80mcg MDI IH SCH ×2 (07:49→19:47)
[2017-04-17] MEDS: Loratadine 10 MG TABLET PO SCH (10:17)
[2017-04-17] MEDS: Lactobacillus 1 EACH CAP.SPRINK PO SCH (10:18)
[2017-04-17] MEDS: Cholecalciferol (D-3) 1,000 UNIT TABLET PO SCH (10:18)
[2017-04-17] MEDS: Fluticasone Propionate Nasal 50 MCG/SPRAY BOTTLE NS SCH (10:20)
[2017-04-17] MEDS: Silvasorb 44.4 ML TUBE TP SCH (10:21)
[2017-04-17] MEDS: Miconazole w/zinc oxide&karaya 92 APPL/92 GM TUBE TP SCH ×2 (10:21→21:17)
--- NOTE | 2017-04-17 11:08 | Internal Med Progress Note ---
Date of Encounter: 04/17/17 Time of Encounter: 11:05 - Assessment and plan (1) Spina bifida Current Visit: Yes Status: Chronic Assessment and plan: Chronic, with paraplegia, LE weakness. Ambulates with crutches, however, with sacral decubitus ulcers PT/OT eval prior to discharge Qualifiers: Spinal region: lumbosacral Presence of hydrocephalus: unspecified hydrocephalus presence Qualified Code(s): Q05.7 - Lumbar spina bifida without hydrocephalus (2) UTI (urinary tract infection) Current Visit: Yes Status: Acute Assessment and plan: Providencia, sensitive to cefalosporins/Zosyn day 3 of Zosyn, continue same for now Qualifiers: Urinary tract infection type: site unspecified Hematuria presence: without hematuria Qualified Code(s): N39.0 - Urinary tract infection, site not specified (3) Essential hypertension Current Visit: Yes Status: Chronic Assessment and plan: Controlled, continue current meds (4) Hyperlipidemia Current Visit: Yes Status: Chronic Assessment and plan: Continue current meds Qualifiers: Hyperlipidemia type: mixed hyperlipidemia Qualified Code(s): E78.2 - Mixed hyperlipidemia (5) Hypothyroidism Current Visit: Yes Status: Chronic Assessment and plan: Continue home meds Qualifiers: Hypothyroidism type: acquired Qualified Code(s): E03.9 - Hypothyroidism, unspecified (6) Decubitus ulcer of left buttock Current Visit: Yes Status: Acute Assessment and plan: Possibly fungal Continue wound care Patient said to be also incontinent, may hamper wound healing Continue antibiotics Qualifiers: Pressure ulcer stage: stage 1 Qualified Code(s): L89.321 - Pressure ulcer of left buttock, stage 1 (7) Cellulitis of left lower extremity Current Visit: Yes Status: Acute Assessment and plan: Continue Vanco and Zosyn Improving on these current antibiotics Would recommend at least 5 days of vancomycin At this point, there is no obvious culturable lesion Will consider ID eval prior to discharge (8) Morbid obesity with BMI of 40.0-44.9, adult Current Visit: Yes Status: Chronic Assessment and plan: Lifestyle modification encouraged - Subjective Interval history: Patient is seen and evaluated at the bedside with the team. History the bedside. 47-year-old male with history of spina bifida, recurrent urinary tract infections, recurrent cellulitis, status post colostomy, and paraparesis. Patient is admitted again this time for cellulitis of the lower extremities and Complicated UTI with an indwelling Gray Prior patient at the bedside and his sister to redness of the lower extremity has improved. Patient did have leukocytosis on admission that has improved with medications. Patient has been afebrile. Of note patient also has sacral decubitus ulcers which he attributes to having sitting down for prolonged periods of time. Urine culture shows providencia, sensitive to cefalosporins., blood culture preliminary negative. No wound cultures. - Constitutional Vitals: Temp Pulse Resp BP Pulse Ox 97.7 F 75 20 123/77 93 04/17/17 07:10 04/17/17 07:10 04/17/17 07:50 04/17/17 07:10 04/17/17 07:50 General appearance: Present: A&O X 3, pleasant, no acute distress Exam: Morbidly obese, not in distress - Head Head exam: Present: atraumatic, normocephalic - Eye Eye exam: Present: PERRL, conjuntiva pink, sclera anicteric Pupils: Present: PERRL - ENT ENT exam: Present: mucous membranes moist - Neck Neck exam general surgery: Present: supple, trachea midline. Absent: lymphadenopathy - Respiratory Respiratory exam: Present: CTAB - Cardiovascular Cardiovascular exam: Present: RRR, +S1, +S2. Absent: systolic murmur - GI/Abdominal GI/Abdominal exam: Present: normal bowel sounds, soft, no peritoneal signs. Absent: tenderness Additional comments: Right ostomy, surrounding skin clean and dry, no inflammation, ostomy bag is empty - Extremities Exam Extremities exam: Present: pedal edema, warm, radial pulses palpable and symetrical. Absent: calf tenderness, cyanotic Additional comments: Bilateral non-pitting pedal edema, multiple excoriations and dry skin. No redness at marked site, multiple blisters L>R. No obvious draining abscesses, no fluctuancy Pulses present and equal bilaterally - Neurological Exam Neurological exam: Present: alert, CN II-XII intact, oriented X3. Absent: no focal deficits, strengths equal and symetr throughout, pronater drift, facial droop, speech deficit - Skin Skin exam: Present: dry, excoriation Internal Medicine: Result - Labs CBC & Chem 7: 04/17/17 11:33 04/17/17 11:33 - ABG Interpretation ABG results: PT/INR, D-dimer PT 12.4 Seconds (9.4-12.1) H 04/15/17 00:10 Consult Discharge Plan - Plan Referrals: Maria Elena An MD [Primary Care Provider] - 04/26/17 1:45 pm
[2017-04-17 11:52] LABS: Basophils # 0.1 K/mcL (0.0-0.2); Basophils % 0.8 %; Eosinophils # 0.7 K/mcL (0.0-0.6); Eosinophils % 7.2 %; Hemoglobin 12.7 g/dL (12.9-16.9); Immature Granulocytes % 0.4 % (0-4); Lymphocytes # 1.8 K/mcL (0.6-4.6); Lymphocytes % 18.3 %; Mean Corpuscular HGB Conc 31.8 g/dL (31.6-35.5); Mean Corpuscular Hemoglobin 27.2 pg (28.0-33.3); Mean Corpuscular Volume 85.7 fL (83.0-100.0); Mean Platelet Volume 10.7 fL (9.4-12.4); Monocytes # 0.6 K/mcL (0.0-1.3); Monocytes % 6.4 %; Neutrophils # 6.6 K/mcL (1.6-8.9); Platelet Count 287 K/mcL (140-400); Red Blood Count 4.67 M/mcL (4.19-5.50); Red Cell Distribution Width 15.9 % (11.5-14.5); Segmented Neutrophils % 66.9 %
[2017-04-17 11:58] LABS: BUN/Creatinine Ratio 16 (6-26); Blood Urea Nitrogen 14 mg/dL (8-26); Calcium 9.4 mg/dL (8.6-10.8); Carbon Dioxide 22 mEq/L (19-29); Chloride 104 mEq/L (98-109); Glucose 125 mg/dL (70-99); Osmolality,Calculated 286 (280-300); Potassium 4.7 mEq/L (3.5-4.5); Sodium 137 mEq/L (136-145); eGFR For African Americans > 60 (> 60); eGFR For Non-African Americans > 60 (> 60)
[2017-04-18] MEDS: *HR* Heparin 5,000 UNIT/ML VIAL SQ SCH ×2 (05:34→18:09)
[2017-04-18 06:38] LABS: Basophils # 0.1 K/mcL (0.0-0.2); Basophils % 0.9 %; Eosinophils # 0.7 K/mcL (0.0-0.6); Eosinophils % 6.6 %; Hematocrit 38.4 % (37.5-50.1); Hemoglobin 12.2 g/dL (12.9-16.9); Immature Granulocytes % 0.5 % (0-4); Lymphocytes # 1.8 K/mcL (0.6-4.6); Lymphocytes % 16.1 %; Mean Corpuscular HGB Conc 31.8 g/dL (31.6-35.5); Mean Corpuscular Hemoglobin 27.4 pg (28.0-33.3); Mean Corpuscular Volume 86.1 fL (83.0-100.0); Mean Platelet Volume 10.6 fL (9.4-12.4); Monocytes # 0.8 K/mcL (0.0-1.3); Monocytes % 7.3 %; Neutrophils # 7.7 K/mcL (1.6-8.9); Platelet Count 299 K/mcL (140-400); Red Blood Count 4.46 M/mcL (4.19-5.50); Segmented Neutrophils % 68.6 %
[2017-04-18 07:24] LABS: BUN/Creatinine Ratio 13 (6-26); Blood Urea Nitrogen 13 mg/dL (8-26); Calcium 9.3 mg/dL (8.6-10.8); Carbon Dioxide 22 mEq/L (19-29); Chloride 101 mEq/L (98-109); Glucose 150 mg/dL (70-99); Osmolality,Calculated 283 (280-300); Sodium 135 mEq/L (136-145); eGFR For African Americans > 60 (> 60); eGFR For Non-African Americans > 60 (> 60)
[2017-04-18] MEDS: Beclomethasone 80mcg MDI IH SCH ×2 (08:06→20:22)
[2017-04-18] MEDS: Piperacillin/Tazobactam 3.375 GM in D5% in Water (Mini-Bag+) 100 ML IVPB SCH ×2 (09:09→18:08)
[2017-04-18] MEDS: Loratadine 10 MG TABLET PO SCH (09:10)
[2017-04-18] MEDS: Lactobacillus 1 EACH CAP.SPRINK PO SCH (09:11)
[2017-04-18] MEDS: Cholecalciferol (D-3) 1,000 UNIT TABLET PO SCH (09:11)
[2017-04-18] MEDS: Silvasorb 44.4 ML TUBE TP SCH (09:24)
[2017-04-18] MEDS: Miconazole w/zinc oxide&karaya 92 APPL/92 GM TUBE TP SCH ×2 (09:24→19:51)
[2017-04-18] MEDS: Fluticasone Propionate Nasal 50 MCG/SPRAY BOTTLE NS SCH (09:26)
--- NOTE | 2017-04-18 10:56 | Internal Med Progress Note ---
Date of Encounter: 04/18/17 Time of Encounter: 10:56 - Assessment and plan (1) Spina bifida Current Visit: Yes Status: Chronic Assessment and plan: Chronic, with paraplegia, LE weakness. Ambulates with crutches, however, with sacral decubitus ulcers PT/OT at home upon discharge Qualifiers: Spinal region: lumbosacral Presence of hydrocephalus: unspecified hydrocephalus presence Qualified Code(s): Q05.7 - Lumbar spina bifida without hydrocephalus (2) UTI (urinary tract infection) Current Visit: Yes Status: Acute Assessment and plan: Providencia, sensitive to cefalosporins/Zosyn day 4 of Zosyn, continue same for now Qualifiers: Urinary tract infection type: site unspecified Hematuria presence: without hematuria Qualified Code(s): N39.0 - Urinary tract infection, site not specified (3) Essential hypertension Current Visit: Yes Status: Chronic Assessment and plan: Controlled, continue current meds (4) Hyperlipidemia Current Visit: Yes Status: Chronic Assessment and plan: Continue current meds Qualifiers: Hyperlipidemia type: mixed hyperlipidemia Qualified Code(s): E78.2 - Mixed hyperlipidemia (5) Hypothyroidism Current Visit: Yes Status: Chronic Assessment and plan: Continue home meds Qualifiers: Hypothyroidism type: acquired Qualified Code(s): E03.9 - Hypothyroidism, unspecified (6) Decubitus ulcer of left buttock Current Visit: Yes Status: Acute Assessment and plan: Possibly fungal Continue wound care Patient said to be also incontinent, may hamper wound healing Continue antibiotics Qualifiers: Pressure ulcer stage: stage 1 Qualified Code(s): L89.321 - Pressure ulcer of left buttock, stage 1 (7) Cellulitis of left lower extremity Current Visit: Yes Status: Acute Assessment and plan: Continue Vanco and Zosyn Improving on these current antibiotics Would recommend at least 5 days of vancomycin At this point, there is no obvious culturable lesion ID eval today (8) Morbid obesity with BMI of 40.0-44.9, adult Current Visit: Yes Status: Chronic Assessment and plan: Lifestyle modification encouraged - Subjective Interval history: 47-year-old male with history of spina bifida, recurrent urinary tract infections, recurrent cellulitis, status post colostomy, and paraparesis. Patient is admitted again this time for cellulitis of the lower extremities and Complicated UTI with ostomy [facility] the bedside [facility]. Patient did have leukocytosis on admission that has improved with medications. Patient has been afebrile. Of note patient also has sacral decubitus ulcers which he attributes to having sitting down for prolonged periods of time. Urine culture shows providencia, sensitive to cephalosporins., blood culture preliminary negative. No wound cultures. Will consult ID for recommendation for duration of treatment, given recurrence of diagnoses - Constitutional Vitals: Temp Pulse Resp BP Pulse Ox 97.9 F 103 12 138/82 95 04/18/17 09:18 04/18/17 09:18 04/18/17 09:18 04/18/17 09:18 04/18/17 09:18 General appearance: Present: A&O X 3, pleasant, no acute distress - Head Head exam: Present: atraumatic, normocephalic - Eye Eye exam: Present: PERRL, conjuntiva pink, sclera anicteric Pupils: Present: PERRL - Neck Neck exam general surgery: Present: supple, trachea midline. Absent: lymphadenopathy - Respiratory Respiratory exam: Present: CTAB. Absent: accessory muscle use, rales, rhonchi, wheezes - Cardiovascular Cardiovascular exam: Present: RRR, +S1, +S2. Absent: diastolic murmur, gallop, rubs, systolic murmur - GI/Abdominal GI/Abdominal exam: Present: normal bowel sounds, soft, no peritoneal signs. Absent: distended, tenderness Additional comments: Right ostomy, surrounding skin clean and dry, no inflammation, ostomy bag with clear urine - Extremities Exam Additional comments: Bilateral non-pitting pedal edema, multiple excoriations and dry skin. No redness at marked site, multiple blisters L>R. No obvious draining abscesses, no fluctuancy Pulses present and equal bilaterally - Neurological Exam Neurological exam: Present: alert, CN II-XII intact, oriented X3, no focal deficits. Absent: pronater drift, facial droop, speech deficit - Skin Skin exam: Present: dry, excoriation Internal Medicine: Result - Labs CBC & Chem 7: 04/18/17 05:30 04/18/17 05:30 Labs: Short CBC 04/17/17 04/18/17 Range/Units 11:33 05:30 WBC 9.8 11.2 H (4.3-11.1) K/mcL Hgb 12.7 L 12.2 L (12.9-16.9) g/dL Hct 40.0 38.4 (37.5-50.1) % Plt Count 287 299 (140-400) K/mcL Neutrophils # 6.6 7.7 (1.6-8.9) K/mcL BMP 04/17/17 04/18/17 11:33 05:30 Sodium 137 135 L Potassium 4.7 H 4.0 Chloride 104 101 Carbon Dioxide 22 22 BUN 14 13 Creatinine 0.87 1.02 Glucose 125 H 150 H Calcium 9.4 9.3 - ABG Interpretation ABG results: PT/INR, D-dimer PT 12.4 Seconds (9.4-12.1) H 04/15/17 00:10 Consult Discharge Plan - Plan Referrals: Maria Elena An MD [Primary Care Provider] - 04/26/17 1:45 pm
[2017-04-18] MEDS: Vancomycin 1,500 MG in D5% in Water 250 ML IVPB SCH (13:18)
[2017-04-19] MEDS: Piperacillin/Tazobactam 3.375 GM in D5% in Water (Mini-Bag+) 100 ML IVPB SCH ×3 (00:41→16:46)
[2017-04-19] MEDS: Vancomycin 1,250 MG in D5% in Water 250 ML IVPB SCH ×2 (04:58→18:27)
[2017-04-19] MEDS: *HR* Heparin 5,000 UNIT/ML VIAL SQ SCH ×2 (05:00→18:27)
[2017-04-19 05:10] LABS: Basophils # 0.1 K/mcL (0.0-0.2); Basophils % 0.8 %; Eosinophils # 0.7 K/mcL (0.0-0.6); Eosinophils % 6.3 %; Hematocrit 40.5 % (37.5-50.1); Hemoglobin 12.6 g/dL (12.9-16.9); Immature Granulocytes % 0.4 % (0-4); Lymphocytes # 1.8 K/mcL (0.6-4.6); Lymphocytes % 15.4 %; Mean Corpuscular HGB Conc 31.1 g/dL (31.6-35.5); Mean Corpuscular Hemoglobin 26.9 pg (28.0-33.3); Mean Corpuscular Volume 86.5 fL (83.0-100.0); Mean Platelet Volume 10.3 fL (9.4-12.4); Monocytes # 0.8 K/mcL (0.0-1.3); Platelet Count 319 K/mcL (140-400); Red Blood Count 4.68 M/mcL (4.19-5.50); Red Cell Distribution Width 15.9 % (11.5-14.5); Segmented Neutrophils % 70.1 %
[2017-04-19 05:33] LABS: BUN/Creatinine Ratio 13 (6-26); Blood Urea Nitrogen 14 mg/dL (8-26); Calcium 9.4 mg/dL (8.6-10.8); Carbon Dioxide 23 mEq/L (19-29); Chloride 102 mEq/L (98-109); Glucose 144 mg/dL (70-99); Osmolality,Calculated 285 (280-300); Potassium 4.1 mEq/L (3.5-4.5); Sodium 136 mEq/L (136-145); eGFR For African Americans > 60 (> 60); eGFR For Non-African Americans > 60 (> 60)
[2017-04-19] MEDS: Cholecalciferol (D-3) 1,000 UNIT TABLET PO SCH (07:52)
[2017-04-19] MEDS: Lactobacillus 1 EACH CAP.SPRINK PO SCH (07:52)
[2017-04-19] MEDS: Fluticasone Propionate Nasal 50 MCG/SPRAY BOTTLE NS SCH (07:53)
[2017-04-19] MEDS: Loratadine 10 MG TABLET PO SCH (07:53)
[2017-04-19] MEDS: Beclomethasone 80mcg MDI IH SCH ×2 (07:56→19:58)
[2017-04-19] MEDS: Miconazole w/zinc oxide&karaya 92 APPL/92 GM TUBE TP SCH (07:56)
[2017-04-19] MEDS: Silvasorb 44.4 ML TUBE TP SCH (07:56)
--- NOTE | 2017-04-19 09:47 | Discharge Summary ---
Date of Encounter: 04/19/17 Time of Encounter: 09:47 - Discharge Diagnosis (1) Spina bifida Priority: Secondary Status: Chronic Qualifiers: Spinal region: lumbosacral Presence of hydrocephalus: unspecified hydrocephalus presence Qualified Code(s): Q05.7 - Lumbar spina bifida without hydrocephalus (2) UTI (urinary tract infection) Priority: Primary Status: Acute Qualifiers: Urinary tract infection type: site unspecified Hematuria presence: without hematuria Qualified Code(s): N39.0 - Urinary tract infection, site not specified (3) Essential hypertension Priority: Secondary Status: Chronic (4) Hyperlipidemia Priority: Secondary Status: Chronic Qualifiers: Hyperlipidemia type: mixed hyperlipidemia Qualified Code(s): E78.2 - Mixed hyperlipidemia (5) Hypothyroidism Priority: Secondary Status: Chronic Qualifiers: Hypothyroidism type: acquired Qualified Code(s): E03.9 - Hypothyroidism, unspecified (6) Decubitus ulcer of left buttock Priority: Primary Status: Acute Qualifiers: Pressure ulcer stage: stage 1 Qualified Code(s): L89.321 - Pressure ulcer of left buttock, stage 1 (7) Cellulitis of left lower extremity Priority: Primary Status: Acute (8) Morbid obesity with BMI of 40.0-44.9, adult Priority: Secondary Status: Chronic - Discharge Medications Prescriptions: Cefdinir [Omnicef] 300 mg PO BID #14 Silvasorb 1 appl TP DAILY #2 tube Home Medications: Fluticasone Propionate Nasal [Flonase] 50 mcg NS DAILY 11/21/15 [History] Potassium Chloride 60 meq PO BID 11/21/15 [History] Rosuvastatin [Crestor] 20 mg PO HS 11/21/15 [History] Cholecalciferol (Vitamin D3) [Vitamin D3] 5,000 unit PO DAILY 11/12/16 [History] Fluticasone Propionate [Flovent Hfa] 2 puff IH BID 11/12/16 [History] Levothyroxine [Synthroid] 200 mcg PO DAILY 11/12/16 [History] Budesonide [Pulmicort Flexhaler 180mcg] 1 puff IH BID 03/08/17 [History] Lactobacillus Acidophilus/Fos [Acidophilus Probiotic Tablet] 1 cap PO DAILY 06/17 [History] Lansoprazole [Prevacid] 15 mg PO DAILY 03/08/17 [History] Loratadine [Claritin] 10 mg PO DAILY 03/08/17 [History] Multivitamin [One Daily Multivitamin] 1 tab PO DAILY 03/08/17 [History] Enalapril Maleate [Vasotec] 10 mg PO DAILY 03/23/17 [History] Ostomy Adhesive [Coloplast Paste Strip] 1 each MC AD 03/23/17 [History] Saline Nasal [place] [[place] Nasal [place]] 1 spray NS AD 03/23/17 [History] Nystatin Cream [Mycostatin Cream] 1 appl TP BID #1 tube 03/25/17 [Rx] Cefdinir [Omnicef] 300 mg PO BID #14 04/19/17 [Rx] Silvasorb 1 appl TP DAILY #2 tube 04/19/17 [Rx] Allergies/Adverse Reactions: Allergies adhesive Allergy (Verified 04/15/17 16:38) Blister Amoxicillin Allergy (Verified 04/15/17 16:38) Hives Oxaprozin [From Daypro] Adverse Reaction (Verified 03/08/17 10:14) Diarrhea Date of admission: 04/15/17 06:27 Primary care physician: Maria Elena An Consults: 04/17/17 11:12 Consult to Invasive Line Access Team [CONS] Routine Reason for Consult: On vancomycin, limited access Line Type: EPIV 04/17/17 16:01 Consult to Handle Lathe Operator [CONS] Routine Reason for SW Consult: pt wanting to designate POA 04/18/17 15:49 Consult to Infectious Diseases [CONS] Routine Consulting Provider: Infectious Disease Yanet Reason for Consult: Kindly evaluate for recommendation for duration of treatment, spina bifida with ostomy, recurrent UTI and ecurrent LE cellulitis Call Completed: Yes Discharging clinician: Kieran Navarrete Anticipated date of discharge: 04/19/17 - Patient Status Disposition: Home Health Service Condition: Fair Functional capacity at discharge: uses cane/walker Overall status at discharge: patient is progressing back to baseline - Discharge Instructions Follow Up With: Maria Elena An MD [Primary Care Provider] - 04/26/17 1:45 pm - Diet and Activity Diet: low fat, low cholesterol, low salt diet Interval History: See below Hospital course: 47-year-old male with history of spina bifida, recurrent urinary tract infections, recurrent cellulitis, status post colostomy, and paraparesis. Patient is admitted again this time for cellulitis of the lower extremities and complicated UTI with ostomy Patient has chronic lymphedema, and chronic venous congestion. However, he reported having worsening redness and blisters on his lower extremities, he also developed a rash on his buttocks area. he reported being able to ambulate on his crutches but the presence of the ostomy had made his mobility more difficult hence, he has been more immobile. Patient did have leukocytosis on admission that has improved with medications. Patient has been afebrile. Urine culture shows providencia, sensitive to cephalosporins, blood culture was preliminary negative. No wound cultures were obtained as patient did not have any visible draining abscesses. Patient and his sister has endorsed significant improvement in his lower extremity redness and swelling. Patient has received 5 days of intravenous antibiotics-vancomycin and Zosyn for 5 days Due to no availability of wound cultures, Infectious disease WAX BALL MOLDER was consulted on 04/18, however there is no coverage from today 04.19.17, and the weekend, the patient will be discharged home with Omnicef to complete 14 days of therapy for his complicated UTI Patient has home services that has been reactivated by services. Recommend follow up with PCP. - Time Spent with Patient Total time spent providing and/or coordinating discharge services: Greater than 30 minutes - Constitutional Vitals: Temp Pulse Resp BP Pulse Ox 97.8 F 94 12 102/70 95 04/19/17 08:13 04/19/17 08:13 04/19/17 08:13 04/19/17 08:13 04/19/17 08:13 General appearance: Present: A&O X 3, morbidly obese, pleasant, no acute distress - Head Head exam: Present: atraumatic, normocephalic - Eye Eye exam: Present: PERRL, conjuntiva pink, sclera anicteric Pupils: Present: PERRL - Neck Neck exam general surgery: Present: supple, trachea midline. Absent: lymphadenopathy - Respiratory Respiratory exam: Present: CTAB. Absent: accessory muscle use, rales, rhonchi, wheezes - Cardiovascular Cardiovascular exam: Present: RRR, +S1, +S2. Absent: diastolic murmur, gallop, rubs, systolic murmur - GI/Abdominal GI/Abdominal exam: Present: normal bowel sounds, soft, no peritoneal signs. Absent: tenderness Additional comments: R ostomy, bag is empty - Extremities Exam Additional comments: Bilateral non-pitting pedal edema, multiple excoriations and dry skin. No redness at marked site, multiple blisters L>R. No obvious draining abscesses, no fluctuancy Pulses present and equal bilaterally - Back Exam Back exam: Absent: CVA tenderness (L), CVA tenderness (R) - Neurological Exam Neurological exam: Present: CN II-XII intact, oriented X3, no focal deficits. Absent: pronater drift, facial droop, speech deficit - Skin Skin exam: Present: dry, excoriation
--- NOTE | 2017-04-19 09:55 | Physician Discharge Referral ---
Home Health/Hosp Referral Info Transfer to: Home Health Attending Provider: Dr. Navarrete Provider in Charge Post Discharge: PCP - Diagnosis (1) Spina bifida Priority: Secondary Status: Chronic (2) UTI (urinary tract infection) Priority: Primary Status: Acute (3) Essential hypertension Priority: Secondary Status: Chronic (4) Hyperlipidemia Priority: Secondary Status: Chronic (5) Hypothyroidism Priority: Secondary Status: Chronic (6) Decubitus ulcer of left buttock Priority: Primary Status: Acute (7) Cellulitis of left lower extremity Priority: Primary Status: Acute (8) Morbid obesity with BMI of 40.0-44.9, adult Priority: Secondary Status: Chronic - Respiratory Orders Smoking Cessation: Smoking cessation has been advised. For more information, call the [employer] Tobacco Quit Line at 7-773-DBAB-NOW. - Dressing/Wound Care Site: Left ankle, Buttocks Type of Dressing/Treatments w/Frequency: Wound Care: ulcer to left ankle - cleanse daily with HCG soap and water - rinse well with water - apply Silvasorb Gel to the wound - cover with Allevyn Foam Dressing - change daily Wound Care: cleanse areas of excoriation/yeast rash to buttock with HCG soap and water - rinse well with water and pat dry - apply thin layer of Miconazole 2 % in Zinc Oxide and Karaya to the areas of breakdown twice daily and PRN after BMs - Diet/Nutrition Diet/Nutrition Orders: Cardiac - Activity Activity Orders: Up ad lonnie - Services Needed Following services are medically necessary services: Nursing, Home Health Aide, Physical Therapy, Occupational Therapy - Transfer Medications Prescriptions: Cefdinir [Omnicef] 300 mg PO BID #14 Silvasorb 1 appl TP DAILY #2 tube Home Medications: Fluticasone Propionate Nasal [Flonase] 50 mcg NS DAILY 11/21/15 [History] Potassium Chloride 60 meq PO BID 11/21/15 [History] Rosuvastatin [Crestor] 20 mg PO HS 11/21/15 [History] Cholecalciferol (Vitamin D3) [Vitamin D3] 5,000 unit PO DAILY 11/12/16 [History] Fluticasone Propionate [Flovent Hfa] 2 puff IH BID 11/12/16 [History] Levothyroxine [Synthroid] 200 mcg PO DAILY 11/12/16 [History] Budesonide [Pulmicort Flexhaler 180mcg] 1 puff IH BID 04/07/17 [History] Lactobacillus Acidophilus/Fos [Acidophilus Probiotic Tablet] 1 cap PO DAILY 06/17 [History] Lansoprazole [Prevacid] 15 mg PO DAILY 03/08/17 [History] Loratadine [Claritin] 10 mg PO DAILY 03/08/17 [History] Multivitamin [One Daily Multivitamin] 1 tab PO DAILY 03/08/17 [History] Enalapril Maleate [Vasotec] 10 mg PO DAILY 03/23/17 [History] Ostomy Adhesive [Coloplast Paste Strip] 1 each MC AD 03/23/17 [History] Saline Nasal [place] [[place] Nasal [place]] 1 spray NS AD 03/23/17 [History] Nystatin Cream [Mycostatin Cream] 1 appl TP BID #1 tube 03/25/17 [Rx] Cefdinir [Omnicef] 300 mg PO BID #14 04/19/17 [Rx] Silvasorb 1 appl TP DAILY #2 tube 04/19/17 [Rx] Allergies/Adverse Reactions: Allergies adhesive Allergy (Verified 04/15/17 16:38) Blister Amoxicillin Allergy (Verified 04/15/17 16:38) Hives Oxaprozin [From Daypro] Adverse Reaction (Verified 03/08/17 10:14) Diarrhea Certification: Further, I certify that my clinical findings support that this patient is homebound (i.e. absences from home require considerable and taxing effort and are for medical reasons or rastafarian services or infrequently or short duration when for other reasons) because: Homebound Reason: Patient requires assistance of a person or device to safely leave home Attestation: My signature below is to certify that this patient is under my care and that I, or nurse practitioner, or a physician's transportation assistant working with me, has a face-to -face encounter with this patient.
[2017-04-19 15:40] VITALS: BP 109/73
[2017-04-19] MEDS ORDERED: Aminoglycoside Consult 1 EACH MC ONE (21:43)
== END 2017-04-19 21:44 | disposition home health service (06) | DRG 603 ==
LOC: 3ANU 22:20 → EMEROO 22:20 → 3ANU 04-15 04:16 → SUATTDRO 04-15 06:27
PROVIDERS: ADMIT Pediatrics; ATTEND Internal Medicine

== ENCOUNTER 2017-06-10 07:36 | Inpatient (IN) ==
[2017-06-10] MEDS ORDERED: 0.9 % Sodium Chloride 1,000 ML IVC ONE (08:05)
[2017-06-10] MEDS ORDERED: Lidocaine -MPF 1% 2 ML VIAL INFILT ONE (08:21)
[2017-06-10 08:30] LABS: Basophils # 0.1 K/mcL (0.0-0.2); Basophils % 0.4 %; Eosinophils # 0.1 K/mcL (0.0-0.6); Eosinophils % 0.5 %; Hematocrit 35.7 % (37.5-50.1); Hemoglobin 11.3 g/dL (12.9-16.9); Immature Granulocytes % 0.5 % (0-4); Lymphocytes # 1.1 K/mcL (0.6-4.6); Lymphocytes % 5.6 %; Mean Corpuscular HGB Conc 31.7 g/dL (31.6-35.5); Mean Corpuscular Hemoglobin 26.4 pg (28.0-33.3); Mean Corpuscular Volume 83.4 fL (83.0-100.0); Mean Platelet Volume 9.8 fL (9.4-12.4); Monocytes # 1.8 K/mcL (0.0-1.3); Monocytes % 9.1 %; Neutrophils # 16.7 K/mcL (1.6-8.9); Platelet Count 388 K/mcL (140-400); Red Blood Count 4.28 M/mcL (4.19-5.50); Red Cell Distribution Width 15.5 % (11.5-14.5); Segmented Neutrophils % 83.9 %
--- NOTE | 2017-06-10 08:39 | Emergency Department Note ---
Disposition Clinical Impression: Leukocytosis, Lower extremity edema, Decubitus ulcer of left buttock, Decubitus ulcer of left ankle, stage 3 Disposition: Admitted As Inpatient Condition: Fair General Adult HPI - General Chief complaint: ED Fall Stated complaint: Leg swelling and sores Time Seen by Provider: 06/10/17 07:40 Source: patient, family, EMS Limitations: no limitations Nursing Notes Reviewed: Yes Vital Signs Reviewed: Yes - History of Present Illness Pain Scale: 10 - Related Data Home Medications Medication Instructions Recorded Confirmed Fluticasone Propionate Nasal 50 mcg NS DAILY 11/21/15 06/10/17 [Flonase] Potassium Chloride 60 meq PO BID 11/21/15 06/10/17 Rosuvastatin [Crestor] 20 mg PO HS 11/21/15 06/10/17 Cholecalciferol (Vitamin D3) 5,000 unit PO DAILY 11/12/16 06/10/17 [Vitamin D3] Fluticasone Propionate [Flovent 2 puff IH BID 11/12/16 06/10/17 Hfa] Levothyroxine [Synthroid] 200 mcg PO DAILY 11/12/16 06/10/17 Budesonide [Pulmicort Flexhaler 1 puff IH BID 03/08/17 06/10/17 180mcg] Lactobacillus Acidophilus/Fos 1 cap PO DAILY 03/08/17 06/10/17 [Acidophilus Probiotic Tablet] Lansoprazole [Prevacid] 15 mg PO DAILY 03/08/17 06/10/17 Loratadine [Claritin] 10 mg PO DAILY 03/08/17 06/10/17 Multivitamin [One Daily 1 tab PO DAILY 03/08/17 06/10/17 Multivitamin] Enalapril Maleate [Vasotec] 10 mg PO DAILY 03/23/17 06/10/17 Ostomy Adhesive [Coloplast Paste 1 each MC AD 03/23/17 06/10/17 Strip] Saline Nasal [place] [[place] Nasal 1 spray NS AD 03/23/17 06/10/17 [place]] Previous Rx's Medication Instructions Recorded Nystatin Cream [Mycostatin Cream] 1 appl TP BID #1 tube 03/25/17 Silvasorb 1 appl TP DAILY #2 tube 04/19/17 Allergies Allergy/AdvReac Type Severity Reaction Status Date / Time adhesive Allergy Blister Verified 06/10/17 11:35 Amoxicillin Allergy Hives Verified 06/10/17 11:35 Oxaprozin [From Daypro] AdvReac Diarrhea Verified 06/10/17 11:35 Past Medical History - Past Medical History Medical history: Reports: arthritis, asthma, cancer, CVA, diabetes, GERD, hyperlipidemia, hypertension, thyroid disease, other Surgical history: Reports: appendectomy, orthopedic, other, vasectomy, other Psychiatric history: Reports: depression - Social History Smoking Status: Never smoker Smokeless Tobacco Status: No Alcohol use: Reports: none Drug use: Reports: none Physical Exam - General Limitations: no limitations General appearance: alert, in no apparent distress Course Vital Signs Temperature 99.1 F 06/10/17 07:42 Pulse Rate 115 06/10/17 07:42 Respiratory Rate 18 06/10/17 07:42 Blood Pressure 130/82 06/10/17 07:42 O2 Sat by Pulse Oximetry 100 06/10/17 07:42 Temperature 98.3 F 06/10/17 14:50 Pulse Rate 54 06/10/17 14:50 Respiratory Rate 18 06/10/17 14:50 Blood Pressure 116/75 06/10/17 14:50 O2 Sat by Pulse Oximetry 95 06/10/17 14:50 Oxygen Delivery Oxygen Delivery Room Air Medical Decision Making - MDM Narrative Medical decision making narrative: I examined this patient and my medical decision-making was reviewed with the ALTERATION TAILOR APPRENTICE/PA/Advanced Practice Nurse/Resident Physician. I agree with the documented findings, disposition and treatment plan as described except to the extent set forth below. Patient was seen and evaluated today by Dr. Wilder and myself, I agree with his evaluation and management plan, supervised the care of the patient's stay. Patient has chronic swelling in lower extremities which has been getting worse and making it near difficult for him to walk. He also has an area on his posterior buttock that has opened up it was a wound that is being treated by wound treatment center. Return to take a look at that. He does meet Sirs criteria at this time but does not appear septic. Ruling out for a DVT CHF sepsis and he will need admission. He is in agreement with this plan. I am also been involved rn social services with him as he was getting home health care and for some reason that stopped. 0926 hrs.: Patient had a DVT ultrasound done which was negative as read by vascular tach. Waiting on labs. - Lab Data Result diagrams: 06/10/17 08:21 06/10/17 08:21 Lab Results 06/10/17 06/10/17 06/10/17 Range/Units 08:21 08:21 08:21 WBC 19.9 H (4.3-11.1) K/mcL RBC 4.28 (4.19-5.50) M/mcL Hgb 11.3 L (12.9-16.9) g/dL Hct 35.7 L (37.5-50.1) % MCV 83.4 (83.0-100.0) fL MCH 26.4 L (28.0-33.3) pg MCHC 31.7 (31.6-35.5) g/dL RDW 15.5 H (11.5-14.5) % Plt Count 388 (140-400) K/mcL MPV 9.8 (9.4-12.4) fL Immature Gran % 0.5 (0-4) % Seg Neutrophils % 83.9 % Lymphocytes % 5.6 % Monocytes % 9.1 % Eosinophils % 0.5 % Basophils % 0.4 % Neutrophils # 16.7 H (1.6-8.9) K/mcL Lymphocytes # 1.1 (0.6-4.6) K/mcL Monocytes # 1.8 H (0.0-1.3) K/mcL Eosinophils # 0.1 (0.0-0.6) K/mcL Basophils # 0.1 (0.0-0.2) K/mcL Sodium 134 L (136-145) mEq/L Potassium 4.0 (3.5-4.5) mEq/L Chloride 101 (98-109) mEq/L Carbon Dioxide 22 (19-29) mEq/L BUN 11 (8-26) mg/dL Creatinine 1.09 (0.72-1.25) mg/dL Est GFR ( Amer) > 60 (> 60) Est GFR (Non-Af Amer) > 60 (> 60) BUN/Creatinine Ratio 10 (6-26) Glucose 179 H (70-99) mg/dL POC Glucose (58-89) Calculated Osmolality 282 (280-300) Lactic Acid (0.5-2.2) mmol/L Calcium 9.4 (8.6-10.8) mg/dL Phosphorus 2.6 (2.3-4.7) mg/dL Magnesium 1.5 L (1.6-2.6) mg/dL Total Bilirubin 0.6 (0.2-1.2) mg/dL Direct Bilirubin 0.3 (0.0-0.5) mg/dL Indirect Bilirubin 0.3 (0.0-1.2) mg/dL AST 24 (5-34) Units/L ALT 18 (0-55) Units/L Alkaline Phosphatase 76 (38-126) Units/L Troponin I (0-0.03) ng/mL B-Natriuretic Peptide < 10 (0-100) pg/mL Serum Total Protein 7.9 (6.0-8.3) g/dL Albumin 2.8 L (3.5-5.0) g/dL Globulin 5.1 H (2.4-3.5) g/dL Albumin/Globulin Ratio 0.5 L (1.1-2.2) 06/10/17 06/10/17 06/10/17 Range/Units 08:21 08:21 08:29 WBC (4.3-11.1) K/mcL RBC (4.19-5.50) M/mcL Hgb (12.9-16.9) g/dL Hct (37.5-50.1) % MCV (83.0-100.0) fL MCH (28.0-33.3) pg MCHC (31.6-35.5) g/dL RDW (11.5-14.5) % Plt Count (140-400) K/mcL MPV (9.4-12.4) fL Immature Gran % (0-4) % Seg Neutrophils % % Lymphocytes % % Monocytes % % Eosinophils % % Basophils % % Neutrophils # (1.6-8.9) K/mcL Lymphocytes # (0.6-4.6) K/mcL Monocytes # (0.0-1.3) K/mcL Eosinophils # (0.0-0.6) K/mcL Basophils # (0.0-0.2) K/mcL Sodium (136-145) mEq/L Potassium (3.5-4.5) mEq/L Chloride (98-109) mEq/L Carbon Dioxide (19-29) mEq/L BUN (8-26) mg/dL Creatinine (0.72-1.25) mg/dL Est GFR ( Amer) (> 60) Est GFR (Non-Af Amer) (> 60) BUN/Creatinine Ratio (6-26) Glucose (70-99) mg/dL POC Glucose 164 H (58-89) Calculated Osmolality (280-300) Lactic Acid 1.1 (0.5-2.2) mmol/L Calcium (8.6-10.8) mg/dL Phosphorus (2.3-4.7) mg/dL Magnesium (1.6-2.6) mg/dL Total Bilirubin (0.2-1.2) mg/dL Direct Bilirubin (0.0-0.5) mg/dL Indirect Bilirubin (0.0-1.2) mg/dL AST (5-34) Units/L ALT (0-55) Units/L Alkaline Phosphatase (38-126) Units/L Troponin I 0.00 (0-0.03) ng/mL B-Natriuretic Peptide (0-100) pg/mL Serum Total Protein (6.0-8.3) g/dL Albumin (3.5-5.0) g/dL Globulin (2.4-3.5) g/dL Albumin/Globulin Ratio (1.1-2.2) 06/10/17 Range/Units 13:40 WBC (4.3-11.1) K/mcL RBC (4.19-5.50) M/mcL Hgb (12.9-16.9) g/dL Hct (37.5-50.1) % MCV (83.0-100.0) fL MCH (28.0-33.3) pg MCHC (31.6-35.5) g/dL RDW (11.5-14.5) % Plt Count (140-400) K/mcL MPV (9.4-12.4) fL Immature Gran % (0-4) % Seg Neutrophils % % Lymphocytes % % Monocytes % % Eosinophils % % Basophils % % Neutrophils # (1.6-8.9) K/mcL Lymphocytes # (0.6-4.6) K/mcL Monocytes # (0.0-1.3) K/mcL Eosinophils # (0.0-0.6) K/mcL Basophils # (0.0-0.2) K/mcL Sodium (136-145) mEq/L Potassium (3.5-4.5) mEq/L Chloride (98-109) mEq/L Carbon Dioxide (19-29) mEq/L BUN (8-26) mg/dL Creatinine (0.72-1.25) mg/dL Est GFR ( Amer) (> 60) Est GFR (Non-Af Amer) (> 60) BUN/Creatinine Ratio (6-26) Glucose (70-99) mg/dL POC Glucose (58-89) Calculated Osmolality (280-300) Lactic Acid 1.1 (0.5-2.2) mmol/L Calcium (8.6-10.8) mg/dL Phosphorus (2.3-4.7) mg/dL Magnesium (1.6-2.6) mg/dL Total Bilirubin (0.2-1.2) mg/dL Direct Bilirubin (0.0-0.5) mg/dL Indirect Bilirubin (0.0-1.2) mg/dL AST (5-34) Units/L ALT (0-55) Units/L Alkaline Phosphatase (38-126) Units/L Troponin I (0-0.03) ng/mL B-Natriuretic Peptide (0-100) pg/mL Serum Total Protein (6.0-8.3) g/dL Albumin (3.5-5.0) g/dL Globulin (2.4-3.5) g/dL Albumin/Globulin Ratio (1.1-2.2)
[2017-06-10 08:43] LABS: Alanine Aminotransferase 18 Units/L (0-55); Albumin 2.8 g/dL (3.5-5.0); Albumin/Globulin Ratio 0.5 (1.1-2.2); Alkaline Phosphatase 76 Units/L (38-126); Aspartate Amino Transferase 24 Units/L (5-34); BUN/Creatinine Ratio 10 (6-26); Bilirubin,Direct 0.3 mg/dL (0.0-0.5); Bilirubin,Indirect 0.3 mg/dL (0.0-1.2); Bilirubin,Total 0.6 mg/dL (0.2-1.2); Blood Urea Nitrogen 11 mg/dL (8-26); Calcium 9.4 mg/dL (8.6-10.8); Carbon Dioxide 22 mEq/L (19-29); Chloride 101 mEq/L (98-109); Globulin 5.1 g/dL (2.4-3.5); Glucose 179 mg/dL (70-99); Magnesium 1.5 mg/dL (1.6-2.6); Osmolality,Calculated 282 (280-300); Phosphorous 2.6 mg/dL (2.3-4.7); Sodium 134 mEq/L (136-145); Total Protein 7.9 g/dL (6.0-8.3); eGFR For African Americans > 60 (> 60); eGFR For Non-African Americans > 60 (> 60)
[2017-06-10] MEDS ORDERED: Piperacillin/Tazobactam 4.5 GM in D5% in Water (Mini-Bag+) 100 ML IVPB ONE (08:49)
[2017-06-10] MEDS ORDERED: Vancomycin 2,000 MG in D5% in Water 500 ML IVPB ONE (08:49)
--- NOTE | 2017-06-10 10:54 | Emergency Department Note ---
Disposition Clinical Impression: Leukocytosis, Lower extremity edema, Decubitus ulcer of left buttock, Decubitus ulcer of left ankle, stage 3 Disposition: Admitted As Inpatient Condition: Fair Time of Disposition: 10:54 General Adult HPI - General Chief complaint: ED Fall Stated complaint: Leg swelling and sores Time Seen by Provider: 06/10/17 07:40 Source: patient, family, EMS Mode of arrival: EMS Limitations: no limitations Nursing Notes Reviewed: Yes Vital Signs Reviewed: Yes - History of Present Illness HPI Narrative: Patient presents to ED with the chief complaint of left leg swelling. Patient is an incredibly the poor historian and is unable to provide much history. 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 He can get around with crutches. He went to get up today and felt that his left leg went into spasm and she was having a lot of pain and so he was unable to walk. He laid back down and noticed that he was bleeding around his leg. States that the swelling has been going on for several years, but has been worse the last 6 months. He used to be followed by wound care here, however, has not gone in over 6 months. He states that his legs are much more swollen than usual. Does state he was supposed to have an appointment sometime soon for a potential diagnosis of CHF. Otherwise, he has no complaints. He denies any fever, chills , headache, changes in vision, chest pain, abdominal pain, nausea, vomiting, diarrhea. He does have a urostomy bag from some type of adhesion that he is unable to describe. He does complain of some mild shortness of breath that seems to be exertional. States this has been going on a long time with a slight increase from baseline over the last 3 weeks. Pain Scale: 10 - Related Data Home Medications Medication Instructions Recorded Confirmed Fluticasone Propionate Nasal 50 mcg NS DAILY 11/21/15 04/15/17 [Flonase] Potassium Chloride 60 meq PO BID 11/21/15 04/15/17 Rosuvastatin [Crestor] 20 mg PO HS 11/21/15 04/15/17 Cholecalciferol (Vitamin D3) 5,000 unit PO DAILY 11/12/16 04/15/17 [Vitamin D3] Fluticasone Propionate [Flovent 2 puff IH BID 11/12/16 04/15/17 Hfa] Levothyroxine [Synthroid] 200 mcg PO DAILY 11/12/16 04/15/17 Budesonide [Pulmicort Flexhaler 1 puff IH BID 03/08/17 04/15/17 180mcg] Lactobacillus Acidophilus/Fos 1 cap PO DAILY 03/08/17 04/15/17 [Acidophilus Probiotic Tablet] Lansoprazole [Prevacid] 15 mg PO DAILY 03/08/17 04/15/17 Loratadine [Claritin] 10 mg PO DAILY 03/08/17 04/15/17 Multivitamin [One Daily 1 tab PO DAILY 03/08/17 04/15/17 Multivitamin] Enalapril Maleate [Vasotec] 10 mg PO DAILY 03/23/17 04/15/17 Ostomy Adhesive [Coloplast Paste 1 each MC AD 03/23/17 04/15/17 Strip] Saline Nasal [place] [[place] Nasal 1 spray NS AD 03/23/17 04/15/17 [place]] Previous Rx's Medication Instructions Recorded Nystatin Cream [Mycostatin Cream] 1 appl TP BID #1 tube 03/25/17 Cefdinir [Omnicef] 300 mg PO BID #14 04/19/17 Silvasorb 1 appl TP DAILY #2 tube 04/19/17 Cefdinir [Omnicef] 300 mg PO BID #14 capsule 05/23/17 Allergies Allergy/AdvReac Type Severity Reaction Status Date / Time adhesive Allergy Blister Verified 06/10/17 11:35 Amoxicillin Allergy Hives Verified 06/10/17 11:35 Oxaprozin [From Daypro] AdvReac Diarrhea Verified 06/10/17 11:35 Constitutional: Denies: fever Eyes: Denies: vision change Cardiovascular: Denies: chest pain Respiratory: Reports: dyspnea Past Medical History - Past Medical History Medical history: Reports: arthritis, asthma, cancer, CVA, diabetes, GERD, hyperlipidemia, hypertension, thyroid disease, other Surgical history: Reports: appendectomy, orthopedic, other, vasectomy, other Psychiatric history: Reports: depression - Social History Smoking Status: Never smoker Smokeless Tobacco Status: No Alcohol use: Reports: none Drug use: Reports: none Physical Exam - General Limitations: no limitations General appearance: alert, in no apparent distress - Head Head exam: atraumatic, normocephalic, normal inspection - Eye Eye exam: Present: normal appearance, PERRL, EOMI - Chest Chest inspection: Present: normal inspection, symmetric chest wall rise - Respiratory Respiratory exam: Present: normal lung sounds bilaterally - Cardiovascular Cardiovascular exam: Present: tachycardia, normal heart sounds - Abdominal Exam Abdominal exam: Present: soft. Absent: tenderness - Extremities Exam Extremities exam: Present: pedal edema (Patient has significant edema. It is very pitting and unable to fully palpate the bone. States that it has been this way for 6 months.), other (Patient has a large purulent looking ulcer to his left posterior thigh. Associated erythema, but no necrosis. It is weeping. Also has an ulcerated mustering lesion to his left ankle.) - Neurological Exam Neurological exam: Present: alert, oriented X3 - Psychiatric Psychiatric exam: Present: other (Patient is alert and oriented and pleasant, however, is a poor historian and is unsure of a lot of his medical history, which makes a full history of a difficult) - Skin Skin exam: Present: warm, dry, other (Patient has a very large ulcerated lesion to his left posterior thigh and left ankle as well as a blistering lesion on the top of his left foot. States that he has been having this for several years , but has been worse over the last 6 months. He is unsure what they normally look like because he does not look that he noticed that it was bleeding today). Absent: intact, normal color Course - Reevaluation(s) Reevaluation #1: 47-year-old male poor historian, presenting with a large left posterior thigh ulcer. Was slightly tachycardic, has an elevated leukocyte count. Antibiotics given, fluids given, after PICC line was placed. We will admit to hospitalist service. Spoke with surgery and will have wound care consultation. Patient stable DVT ultrasound left lower extremity was preliminarily negative Vital Signs Temperature 99.1 F 06/10/17 07:42 Pulse Rate 115 06/10/17 07:42 Respiratory Rate 18 06/10/17 07:42 Blood Pressure 130/82 06/10/17 07:42 O2 Sat by Pulse Oximetry 100 06/10/17 07:42 Temperature 99.1 F 06/10/17 07:42 Pulse Rate 109 06/10/17 08:55 Respiratory Rate 18 06/10/17 11:28 Blood Pressure 116/78 06/10/17 11:28 O2 Sat by Pulse Oximetry 95 06/10/17 08:55 Oxygen Delivery Oxygen Delivery Room Air Medical Decision Making - Medical Records Medical records reviewed: Yes I reviewed the patient's medical records. - Lab Data Lab results reviewed: Yes I reviewed the patient's lab results. Result diagrams: 06/10/17 08:21 06/10/17 08:21 Lab Results 06/10/17 06/10/17 06/10/17 Range/Units 08:21 08:21 08:21 WBC 19.9 H (4.3-11.1) K/mcL RBC 4.28 (4.19-5.50) M/mcL Hgb 11.3 L (12.9-16.9) g/dL Hct 35.7 L (37.5-50.1) % MCV 83.4 (83.0-100.0) fL MCH 26.4 L (28.0-33.3) pg MCHC 31.7 (31.6-35.5) g/dL RDW 15.5 H (11.5-14.5) % Plt Count 388 (140-400) K/mcL MPV 9.8 (9.4-12.4) fL Immature Gran % 0.5 (0-4) % Seg Neutrophils % 83.9 % Lymphocytes % 5.6 % Monocytes % 9.1 % Eosinophils % 0.5 % Basophils % 0.4 % Neutrophils # 16.7 H (1.6-8.9) K/mcL Lymphocytes # 1.1 (0.6-4.6) K/mcL Monocytes # 1.8 H (0.0-1.3) K/mcL Eosinophils # 0.1 (0.0-0.6) K/mcL Basophils # 0.1 (0.0-0.2) K/mcL Sodium 134 L (136-145) mEq/L Potassium 4.0 (3.5-4.5) mEq/L Chloride 101 (98-109) mEq/L Carbon Dioxide 22 (19-29) mEq/L BUN 11 (8-26) mg/dL Creatinine 1.09 (0.72-1.25) mg/dL Est GFR ( Amer) > 60 (> 60) Est GFR (Non-Af Amer) > 60 (> 60) BUN/Creatinine Ratio 10 (6-26) Glucose 179 H (70-99) mg/dL POC Glucose (58-89) Calculated Osmolality 282 (280-300) Lactic Acid (0.5-2.2) mmol/L Calcium 9.4 (8.6-10.8) mg/dL Phosphorus 2.6 (2.3-4.7) mg/dL Magnesium 1.5 L (1.6-2.6) mg/dL Total Bilirubin 0.6 (0.2-1.2) mg/dL Direct Bilirubin 0.3 (0.0-0.5) mg/dL Indirect Bilirubin 0.3 (0.0-1.2) mg/dL AST 24 (5-34) Units/L ALT 18 (0-55) Units/L Alkaline Phosphatase 76 (38-126) Units/L Troponin I (0-0.03) ng/mL B-Natriuretic Peptide < 10 (0-100) pg/mL Serum Total Protein 7.9 (6.0-8.3) g/dL Albumin 2.8 L (3.5-5.0) g/dL Globulin 5.1 H (2.4-3.5) g/dL Albumin/Globulin Ratio 0.5 L (1.1-2.2) 06/10/17 06/10/17 06/10/17 Range/Units 08:21 08:21 08:29 WBC (4.3-11.1) K/mcL RBC (4.19-5.50) M/mcL Hgb (12.9-16.9) g/dL Hct (37.5-50.1) % MCV (83.0-100.0) fL MCH (28.0-33.3) pg MCHC (31.6-35.5) g/dL RDW (11.5-14.5) % Plt Count (140-400) K/mcL MPV (9.4-12.4) fL Immature Gran % (0-4) % Seg Neutrophils % % Lymphocytes % % Monocytes % % Eosinophils % % Basophils % % Neutrophils # (1.6-8.9) K/mcL Lymphocytes # (0.6-4.6) K/mcL Monocytes # (0.0-1.3) K/mcL Eosinophils # (0.0-0.6) K/mcL Basophils # (0.0-0.2) K/mcL Sodium (136-145) mEq/L Potassium (3.5-4.5) mEq/L Chloride (98-109) mEq/L Carbon Dioxide (19-29) mEq/L BUN (8-26) mg/dL Creatinine (0.72-1.25) mg/dL Est GFR ( Amer) (> 60) Est GFR (Non-Af Amer) (> 60) BUN/Creatinine Ratio (6-26) Glucose (70-99) mg/dL POC Glucose 164 H (58-89) Calculated Osmolality (280-300) Lactic Acid 1.1 (0.5-2.2) mmol/L Calcium (8.6-10.8) mg/dL Phosphorus (2.3-4.7) mg/dL Magnesium (1.6-2.6) mg/dL Total Bilirubin (0.2-1.2) mg/dL Direct Bilirubin (0.0-0.5) mg/dL Indirect Bilirubin (0.0-1.2) mg/dL AST (5-34) Units/L ALT (0-55) Units/L Alkaline Phosphatase (38-126) Units/L Troponin I 0.00 (0-0.03) ng/mL B-Natriuretic Peptide (0-100) pg/mL Serum Total Protein (6.0-8.3) g/dL Albumin (3.5-5.0) g/dL Globulin (2.4-3.5) g/dL Albumin/Globulin Ratio (1.1-2.2) - Radiology Data Radiology results reviewed: Yes I reviewed the patient's radiology results. - EKG Data EKG #1 EKG attestation: Yes I reviewed and interpreted this EKG. EKG results narrative: Sinus tach, rate 116, FL interval 172, QRS 96, QTC 408, normal axis, no acute ischemic changes. S.B.A.R. - S.B.A.R. Situation: Demographics, MOA Background: Presenting Complaint, Relevant PMH, Meds, & Allergies Assessment: Vital Signs, Course and respsone to treatment, Exam Concerns, Patient/Family Expectation, Pertinant Lab Results, Outstanding Labs Recommendation: Recommendation based on pending studies, treatments, or consults S.B.A.R. Report Given to: Dr. Berlin Gandhi Repor Time: 10:51
--- NOTE | 2017-06-10 12:33 | Electrocardiograph Report ---
[address] [address] Test Date: 2017-06-10 Pat Name: Sammy Leone Department: 102 Room: 3B39 Gender: M Buyer: Am : 1970 Requested By: Jeffrey Wilder Order Number: [id number] Reading MD: Endy Bhat MD Measurements Intervals [place] Rate: 116 P: 43 FL: 172 QRS: 49 QRSD: 96 T: 24 QT: 339 QTc: 408 Interpretive Statements SINUS TACHYCARDIA Electronically Signed On 06-10-2017 12:32:26 EDT by Endy Bhat MD
[2017-06-10] MEDS ORDERED: Naloxone 0.4 MG/ML INJ IVP PRN (12:42)
[2017-06-10] MEDS ORDERED: Acetaminophen 325 MG TABLET PO PRN (12:42)
[2017-06-10] MEDS ORDERED: Ondansetron 4 MG/2 ML VIAL IVP PRN (12:42)
[2017-06-10] MEDS ORDERED: *HR* Morphine 2 MG/ML SYRINGE IVP PRN (12:42)
[2017-06-10] MEDS ORDERED: *HR* HYDROcodone/Acet 5/325 mg TABLET PO PRN (12:42)
--- NOTE | 2017-06-10 13:03 | Internal Med History&Physical ---
<Raymond Felix - Last Filed: 06/10/17 13:54> Date of Encounter: 06/10/17 Time of Encounter: 12:30 Assessment and Plan (1) Sepsis Current visit: Yes Status: Acute Patient presents with white count of 19.9 and heart rate of 1:15 bpm upon admission to the ED. Patient currently meets sepsis criteria. Blood cultures 2 and wound culture ordered. IV Zosyn and IV vancomycin administered in the ED. Will continue IV Zosyn 3.375 g every 8 and IV vancomycin to be pharmacy dosed. Will monitor patient's WBC for continued signs of infection through follow-up labs and adjust antibiotic treatment accordingly based on culture results and sensitivity. Timed lactic acids ordered. Placed on continuous cardiac telemetry due to current tachycardia related to infection. Patient also placed on supplemental O2 with titration due to current shortness of breath. Qualifiers: Sepsis type: sepsis due to unspecified organism Qualified Code(s): A41.9 - Sepsis, unspecified organism (2) Leukocytosis Current visit: Yes Status: Acute Patient presents with acute leukocytosis. Patient's WBC on admission was 19.9. Vision has history of chronic infections related to comorbidities. IV Zosyn and IV vancomycin administered in the ED. Will continue IV Zosyn 3.375 g every 8 and IV vancomycin to be pharmacy dosed. Follow-up labs ordered. Will monitor patient's WBC for continued signs of infection. We will follow sepsis protocol. Qualifiers: Leukocytosis type: unspecified Qualified Code(s): D72.829 - Elevated white blood cell count, unspecified (3) SOB (shortness of breath) Current visit: Yes Status: Acute Impression presents with acute shortness of breath which she reports may be due to possible CHF. Patient reports SOB is with and without exertion. Supplemental O2 with titration if SPO2 less than 92% and continuous SPO2 monitoring ordered. DuoNeb every 4 ordered. Monitor patient and vital signs. (4) GERD (gastroesophageal reflux disease) Current visit: Yes Status: Chronic Patient presents with chronic gastroesophageal reflux disease with unspecified esophagitis presence. IV Protonix 40 mg daily ordered. IV Zofran when necessary ordered for nausea. Qualifiers: Esophagitis presence: esophagitis presence not specified Qualified Code(s) : K21.9 - Gastro-esophageal reflux disease without esophagitis (5) Diabetes Current visit: Yes Status: Chronic Patient reports chronic history of diabetes with previous insulin use. Patient is currently not taking any hyperglycemic medications, oral or SQ. Patient's current decubitus ulcers are likely due to diabetes complications and neuropathy. A1c ordered. Blood glucose monitoring ACHS. Low-dose correction insulin sliding scale ordered with hypoglycemic protocol. Diabetic education consult ordered. Diabetic diet with 1.5L fluid restriction ordered. Qualifiers: Diabetes mellitus type: type 2 Diabetes mellitus complication status: with skin complications Diabetes mellitus complication detail: with foot ulcer Diabetes mellitus terminal worker insulin use: unspecified terminal worker insulin use status Qualified Code(s): E11.621 - Type 2 diabetes mellitus with foot ulcer; L98.499 - Non-pressure chronic ulcer of skin of other sites with unspecified severity (6) Lower extremity edema Current visit: Yes Status: Chronic Patient presents with chronic lower extremity edema. Patient reports he was to be seen this week for possible diagnosis of CHF. Patient's bilateral legs are extremely edematous at this time. Lasix 40 mg daily ordered. Fluid restriction of 1.5 L daily ordered with diabetic diet. (7) Decubitus ulcer of left buttock Current visit: Yes Status: Chronic Patient presents with chronic decubitus ulcer of left buttock. Patient is currently diabetic with multiple comorbidities. Wound care consult ordered as well as daily wound care. Diabetic education consult ordered. Qualifiers: Pressure ulcer stage: unspecified pressure ulcer stage Qualified Code(s): L89.329 - Pressure ulcer of left buttock, unspecified stage (8) Decubitus ulcer of left ankle, stage 3 Current visit: Yes Status: Chronic Patient presents with chronic decubitus ulcer left ankle stage III. Patient is currently diabetic with multiple comorbidities. Wound care consult ordered as well as daily wound care. Diabetic education consult ordered. (9) Essential hypertension Current visit: Yes Status: Chronic Patient has history of chronic hypertension but is currently not on anti- hypertensive medication. Will add low dose of lopressor if patient shows signs of hypertension. (10) Hyperlipidemia Current visit: Yes Status: Chronic Patient presents with history of chronic hyperlipidemia. Lipid panel ordered. Will continue patient's Crestor. Qualifiers: Hyperlipidemia type: pure hypercholesterolemia Qualified Code(s): E78.00 - Pure hypercholesterolemia, unspecified; E78.0 - Pure hypercholesterolemia (11) Hypothyroidism Current visit: Yes Status: Chronic Patient presents with history of chronic hypothyroidism. Will continue patient' s levothyroxine. Qualifiers: Hypothyroidism type: acquired Qualified Code(s): E03.9 - Hypothyroidism, unspecified (12) DVT prophylaxis Current visit: Yes Status: Acute Patient placed on DVT prophylaxis due to admission protocol and current bedrest status. Heparin 5000 units SQ every 8 ordered. Internal Medicine - H&P: HPI Chief complaint: Leg swelling and painful sores of LLE Admitted From: Emergency Dept Plans for Post Hospital Care: Home History of present illness: Mr. Leone is a 47 year old male who presents from the ED with chief complaint of leg swelling and painful source of left lower extremity. Patient has history of spina bifida and difficulty ambulating and uses crutches. He presented to you today due to bleeding sore located on the back of his left lower extremity on the calf. Patient states that his legs are more swollen than usual. Mr. Ladonna Presley reports his legs have been swollen for several years but has worsened over the past 6 months. Patient also has history of infections due to self-catheterization related to his spina bifida which cause scar tissue and placement of an ostomy bag. Patient has a history of arthritis , asthma, CVA, diabetes, GERD, HLD, HTN, thyroid disease, spina bifida, and cancer. Reports he was to be seen by his PCP for confirmation diagnosis of CHF but was unable to keep appointment. He currently denies any fever, chills, recent illness, headache, changes in vision, chest pain, nausea, vomiting, diarrhea, abdominal pain, pre-syncope, or syncope. He does state he has shortness of breath related to exertion. Upon examination patient's bilateral extremities are warm to the touch, erythematous, edematous, and appear to have cellulitis. His left lower extremity has an oozing sore located on the posterior calf and thigh. In addition, he currently has decubitus ulcers on his left buttocks and a stage III decubitus ulcer of the left ankle. Upon admission to the ED, patient's white count was 19.9 and heart rate was 1:15 bpm. Patient currently meets sepsis criteria. IV vancomycin and IV Zosyn administered in the ED and will be continued with IV Zosyn 3.375 gm every 8 and IV vancomycin being pharmacy dose. Patient placed on continuous cardiac telemetry due to current tachycardia as well as supplemental O2 with titration if SPO2 less than 92%. Blood cultures were ordered 2 and wound culture ordered. Timed lactic acids ordered. Wound care consult ordered and discussed and daily wound care ordered. Consult to surgery placed in the ED and discussed with Dr. Aguayo. PT/OT/Diabetic education consults ordered as well. Patient to be monitored closely for signs of increased infection or septic shock and we will monitor follow-up labs closely. Time spent with patient 30 minutes. Past Med Surg Social Fam HX - Past Medical History Source: patient Medical history: arthritis, asthma, cancer, CVA, diabetes, GERD, hyperlipidemia , hypertension, thyroid disease, other Psychiatric history: depression - Past Surgical History Surgical History: appendectomy, orthopedic, other, vasectomy, other - Social History Smoking Status: Never smoker Smokeless Tobacco Status: No Alcohol use: none Drug use: none Current living situation: Home, With Family Activity Level: Independent ambulation, Other (Uses crutches to ambulate) Recent Out of Country Travel Within the Last 8 Weeks: No Exposure or Possible Exposure to Illness During Travel: No - Family History Mother Family Member Ethnicity: Non- Living Status: Still Living Hx Family Cardiac Disorders: Yes (HTN) Hx Family Endocrine Disorder: Yes (DM) Hx Family Neurologic Disorders: Yes (Dementia) Sister Family Member Ethnicity: Non- Living Status: Still Living Hx Family Cardiac Disorders: Yes (HTN) Hx Family Endocrine Disorder: Yes (DM, thyroid) Brother Family Member Ethnicity: Non- Living Status: Still Living Hx Family Cardiac Disorders: Yes (HTN) Father Family Member Ethnicity: Non- Living Status: Hx Family Cardiac Disorders: Yes (CHF, HTN) Hx Family Respiratory Disorders: Yes (Asthma, emphysema) Hx Family Cancer: Yes (Lung) Hx Family GI Disorders: No Hx Family Endocrine Disorder: Yes Hx Family Neuromuscular Disorders: No Hx Family Neurologic Disorders: No Hx Family HEENT Disorders: No Hx Family Autoimmune Disorders: No Internal Medicine - H&P: Meds Fluticasone Propionate Nasal [Flonase] 50 mcg NS DAILY 11/21/15 [History] Potassium Chloride 60 meq PO BID 11/21/15 [History] Rosuvastatin [Crestor] 20 mg PO HS 11/21/15 [History] Cholecalciferol (Vitamin D3) [Vitamin D3] 5,000 unit PO DAILY 11/12/16 [History] Fluticasone Propionate [Flovent Hfa] 2 puff IH BID 11/12/16 [History] Levothyroxine [Synthroid] 200 mcg PO DAILY 11/12/16 [History] Budesonide [Pulmicort Flexhaler 180mcg] 1 puff IH BID 03/08/17 [History] Lactobacillus Acidophilus/Fos [Acidophilus Probiotic Tablet] 1 cap PO DAILY 06/17 [History] Lansoprazole [Prevacid] 15 mg PO DAILY 03/08/17 [History] Loratadine [Claritin] 10 mg PO DAILY 03/08/17 [History] Multivitamin [One Daily Multivitamin] 1 tab PO DAILY 03/08/17 [History] Enalapril Maleate [Vasotec] 10 mg PO DAILY 03/23/17 [History] Ostomy Adhesive [Coloplast Paste Strip] 1 each MC AD 03/23/17 [History] Saline Nasal [place] [[place] Nasal [place]] 1 spray NS AD 03/23/17 [History] Nystatin Cream [Mycostatin Cream] 1 appl TP BID #1 tube 03/25/17 [Rx] Silvasorb 1 appl TP DAILY #2 tube 04/19/17 [Rx] Allergies adhesive Allergy (Verified 06/10/17 11:35) Blister Amoxicillin Allergy (Verified 06/10/17 11:35) Hives Oxaprozin [From Daypro] Adverse Reaction (Verified 06/10/17 11:35) Diarrhea All Systems PM: A 10-system review of systems was performed and is negative for pertinent findings except as documented above in the HPI. - Constitutional Constitutional: no chills, no fever(s), no night sweats - EENT Eyes: no change in vision, no discharge, no pain, no photophobia Ears: no ear discharge, no ear pain, no tinnitus Nose, mouth and throat: no dysphagia, no nasal discharge, no neck pain, no sore throat - Breasts Breasts: as per HPI - Cardiovascular Cardiovascular ROS IM: no chest pain, no diaphoresis, no dyspnea, no lightheadedness, no palpitations, no syncope - Respiratory Respiratory: as per HPI, dyspnea, dyspnea on exertion - Gastrointestinal Gastrointestinal: no abdominal pain, no diarrhea, no hematemesis, no hematochezia, no melena, no nausea, no vomiting - Genitourinary Genitourinary ROS male: as per HPI, other (Difficulty with adhesive keeping ostomy bag adhered to skin) - Integumentary Integumentary IM: as per HPI, erythema, sores - Neurological Neurological ROS: no confusion, no convulsions, no focal weakness, no numbness, no tingling, no tremor(s) - Psychiatric Psychiatric: as per HPI - Endocrine Endocrine IM: as per HPI - Hematologic/Lymphatic Hematologic/Lymphatic: no easy bruising - Allergic/Immunologic Allergic/Immunologic: as per HPI - Constitutional Vitals: Temp Pulse Resp BP Pulse Ox 99.1 F 109 18 116/78 95 06/10/17 07:42 06/10/17 08:55 06/10/17 11:28 06/10/17 11:28 06/10/17 08:55 General appearance: Present: cooperative, A&O X 3, morbidly obese, pleasant, no acute distress, answers questions appropriately - Head Head exam: Present: atraumatic, normocephalic - Eye Eye exam: Present: PERRL, conjuntiva pink, sclera anicteric Pupils: Present: PERRL - ENT ENT exam: Present: normal exam, normal external ear exam - Neck Neck exam general surgery: Present: normal inspection, supple, trachea midline. Absent: lymphadenopathy - Respiratory Respiratory exam: Present: wheezes (Mild wheezes bilaterally in all lobes) - Cardiovascular Cardiovascular exam: Present: tachycardia - GI/Abdominal GI/Abdominal exam: Present: normal bowel sounds, soft, no peritoneal signs. Absent: distended, tenderness - Rectal Rectal exam: Present: deferred - Additional comments: exam deferred. - Extremities Exam Extremities exam: Present: calf tenderness (LLE), pedal edema (Bilaterally), warm - Back Exam Back exam: Present: normal inspection - Neurological Exam Neurological exam: Present: alert, CN II-XII intact, oriented X3, no focal deficits. Absent: pronater drift, facial droop, speech deficit - Psychiatric Psychiatric exam: Present: normal affect, normal mood - Skin Skin exam: Present: dry, intact Internal Med - H&P Results - Labs CBC & Chem 7: 06/10/17 08:21 06/10/17 08:21 - EKG Data EKG shows normal: sinus rhythm Rate: tachycardia - EKG Data Prior EKG available for review: yes When compared to previous EKG: there is no significant change EKG comments: 06/10/17 13:23 EKG dated 05/22/17 shows sinus tachycardia. EKG dated 06/10/17 shows sinus tachycardia. - Diagnostic Studies Chest x-ray Additional comments: Impressions Chest X-Ray 06/10/17 08:06 IMPRESSION: Very low lung volumes with bibasilar atelectasis D/ / Tina Arriaga MD / Tian Arriaga MD Interpreting Provider: Tian Arriaga MD <Anam Diaz - Last Filed: 06/10/17 17:43> Date of Encounter: 06/10/17 Internal Medicine - H&P: HPI History of present illness: Mr. Leone is a 47 year old male All Systems PM: A 10-system review of systems was performed and is negative for pertinent findings except as documented above in the HPI. - Constitutional Vitals: Temp Pulse Resp BP Pulse Ox 98.3 F 54 18 116/75 95 06/10/17 14:50 06/10/17 14:50 06/10/17 14:50 06/10/17 14:50 06/10/17 14:50 Internal Med - H&P Results - Labs CBC & Chem 7: 06/10/17 08:21 06/10/17 08:21 - Attending Attestation I have seen and examined the patient at around 17:00. I have discussed about the patient with Raymond Felix NP. I have reviewed the orders and the note. Patient is a 47-year-old male with a past history of arthritis, asthma, cancer, CVA, diabetes, GERD, hyperlipidemia, hypertension, thyroid disease, morbid obesity, spina bifida and CHF. He presents to the ED with complaints of leg swelling and pain in left lower extremity. His edema is a chronic problem and has been uncontrolled. Initial evaluation today revealed sepsis due to cellulitis. His white count was elevated and he was initially tachycardic. Chest x-ray did not show any acute process and EKG shows sinus tachycardia. General surgery has evaluated the patient. They recommended Santyl and vascular wraps and to continue IV antibiotics. Cultures are pending. Fluid restriction in view of severe edema. Patient will be continued on glucose checks and insulin sliding scale. Patient and family have been explained about his condition and plan of care. Understood and agreed. No unanswered questions. CODE STATUS full code.
[2017-06-10] MEDS: *HR* Heparin 5,000 UNIT/ML VIAL SQ SCH ×2 (13:37→20:54)
[2017-06-10] MEDS ORDERED: Dextrose Gel 15 GM PO PRN ×2 (13:41)
[2017-06-10] MEDS ORDERED: *HR* Dextrose 50 % in Water (Syg) 50 ML SYRINGE IVP PRN (13:41)
[2017-06-10] MEDS ORDERED: D5% in Water 1,000 ML IVC PRN (13:41)
[2017-06-10] MEDS ORDERED: [UNRECOGNIZED DRUG - SUPPLY] MC SCH (14:45)
[2017-06-10] MEDS: Ipratropium/Albuterol Neb 3 ML IH SCH ×2 (16:12→19:50)
[2017-06-10] MEDS: Saline Nasal Spray 44 ML BOTTLE NS SCH (16:18)
[2017-06-10] MEDS: Furosemide 40 MG/4 ML VIAL IVP SCH (16:18)
--- NOTE | 2017-06-10 16:56 | General Surgery Consult Note ---
<Rayray Pantoja - Last Filed: 06/10/17 17:25> Date of Encounter: 06/10/17 Time of Encounter: 16:52 Assessment and Plan (1) Decubitus ulcer of left thigh, stage 3 Current Visit: Yes Status: Acute Diabetic control Wound care regimen - See orders - Santyl daily to left lateral thigh wounds - Allevyn foam dressing to left buttock tear - Vascular wraps on LE daily Turn q2hrs Necrotic debridement within 48-72 hours WBC 19.9. VSS stable. Will trend. Will continue Vanc and Zosyn as empiric therapy Blood cultures drawn Wound cultures drawn earlier, but unlikely to reliable or simply contaminate (2) Lower extremity edema Current Visit: No Status: Acute Vascular wraps ordered 1.5 L fluid restriction daily (3) Diabetes Current Visit: Yes Status: Chronic Patient is currently not taking any medications for management A1c ordered Diabetic meal SS insulin Education consult Qualifiers: Diabetes mellitus type: type 2 Diabetes mellitus complication status: with skin complications Diabetes mellitus complication detail: with other skin ulcer Diabetes mellitus senior care insulin use: unspecified intermodal dispatcher insulin use status Qualified Code(s): E11.622 - Type 2 diabetes mellitus with other skin ulcer; L98.499 - Non-pressure chronic ulcer of skin of other sites with unspecified severity (4) Morbid obesity with BMI of 40.0-44.9, adult Current Visit: No Status: Chronic History of Present Illness Consult date: 06/10/17 Reason for consult: wound care Requesting physician: Jeffrey Wilder History of present illness: Mr. Leone is a very pleasant 47-year-old male with a past medical history of spina bifida, arthritis, asthma, CVA, CHF, uncontrolled diabetes mellitus, GERD, hyperlipidemia, hypertension, thyroid disease and cancer who presented to the [facility] emergency department with chief complaint leg swelling and pain in his left lower extremity. He stated his lower extremity edema is a chronic issue and has been uncontrolled for quite some time. He recently has been diagnosed with CHF but has been unable to follow-up for management. Patient was subsequently admitted to [facility] for IV antibiotics and possible cellulitis. On arrival he met sepsis criteria and was started on IV vancomycin and Zosyn. Blood cultures and wound cultures were taken, along with Lactic Acid. Initial Lab Work Demonstrated a White Blood Count of 19.9, lactic acid 1.1 and normal kidney function. Patient has been following Dr. Aguayo at the wound center here but it appears his last visit was January 2016. Hospital service has consulted us for further recommendations pertaining to his lower extremity wounds. On our evaluation, vital signs are stable now and we will begin our management to include inpatient wound care, monitor for improvement, consider possible debridement procedures and transition to outpatient wound care. Past Med Surg Social Fam HX - Past Medical History Medical history: arthritis, asthma, cancer, CVA, diabetes, GERD, hyperlipidemia , hypertension, thyroid disease, other Psychiatric history: depression - Past Surgical History Surgical History: appendectomy, orthopedic, other, vasectomy, other - Social History Smoking Status: Never smoker Smokeless Tobacco Status: No Alcohol use: none Drug use: none - Family History Mother Family Member Ethnicity: Non- Living Status: Still Living Hx Family Cardiac Disorders: Yes (HTN) Hx Family Endocrine Disorder: Yes (DM) Hx Family Neurologic Disorders: Yes (Dementia) Sister Family Member Ethnicity: Non- Living Status: Still Living Hx Family Cardiac Disorders: Yes (HTN) Hx Family Endocrine Disorder: Yes (DM, thyroid) Brother Family Member Ethnicity: Non- Living Status: Still Living Hx Family Cardiac Disorders: Yes (HTN) Father Family Member Ethnicity: Non- Living Status: Hx Family Cardiac Disorders: Yes (CHF, HTN) Hx Family Respiratory Disorders: Yes (Asthma, emphysema) Hx Family Cancer: Yes (Lung) Hx Family GI Disorders: No Hx Family Endocrine Disorder: Yes Hx Family Neuromuscular Disorders: No Hx Family Neurologic Disorders: No Hx Family HEENT Disorders: No Hx Family Autoimmune Disorders: No Medications and Allergies Fluticasone Propionate Nasal [Flonase] 50 mcg NS DAILY 11/21/15 [History] Potassium Chloride 60 meq PO BID 11/21/15 [History] Rosuvastatin [Crestor] 20 mg PO HS 11/21/15 [History] Cholecalciferol (Vitamin D3) [Vitamin D3] 5,000 unit PO DAILY 11/12/16 [History] Fluticasone Propionate [Flovent Hfa] 2 puff IH BID 11/12/16 [History] Levothyroxine [Synthroid] 200 mcg PO DAILY 11/12/16 [History] Budesonide [Pulmicort Flexhaler 180mcg] 1 puff IH BID 03/08/17 [History] Lactobacillus Acidophilus/Fos [Acidophilus Probiotic Tablet] 1 cap PO DAILY 06/17 [History] Lansoprazole [Prevacid] 15 mg PO DAILY 03/08/17 [History] Loratadine [Claritin] 10 mg PO DAILY 03/08/17 [History] Multivitamin [One Daily Multivitamin] 1 tab PO DAILY 03/08/17 [History] Enalapril Maleate [Vasotec] 10 mg PO DAILY 03/23/17 [History] Ostomy Adhesive [Coloplast Paste Strip] 1 each MC AD 03/23/17 [History] Saline Nasal [place] [Pamplico Nasal [place]] 1 spray NS AD 03/23/17 [History] Nystatin Cream [Mycostatin Cream] 1 appl TP BID #1 tube 03/25/17 [Rx] Silvasorb 1 appl TP DAILY #2 tube 04/19/17 [Rx] Allergies adhesive Allergy (Verified 06/10/17 11:35) Blister Amoxicillin Allergy (Verified 06/10/17 11:35) Hives Oxaprozin [From Daypro] Adverse Reaction (Verified 06/10/17 11:35) Diarrhea Review of Systems All systems PM: A 10-system review of systems was performed and is negative for pertinent findings except as documented above in the HPI. General Surgery Exam Initial Vital Signs Temp Pulse Resp BP Pulse Ox 99.1 F 115 18 130/82 100 06/10/17 07:42 06/10/17 07:42 06/10/17 07:42 06/10/17 07:42 06/10/17 07:42 - General physical appearance no distress, obese (morbidly) - Eyes normal ocular movement - Neck trachea midline - Respiratory normal respiratory effort, clear to auscultation - Cardiovascular Cardiovascular exam: Present: RRR - Abdomen Abdomen general surgery: Present: bowel sounds present, soft, non tender - Integumentary Integumentary general surgery: Present: other (Bilateral LE edema. LLE - two stage 3 ulcers present on lateral thigh. Distal is [id number] and proximal [id number]. Skin tear present just inferior to buttock fold.) - Neurologic Present: CN 2-12 grossly intact - Psychiatric Psychiatric general surgery: Present: appropriate, oriented to person, oriented to place, oriented to time, speech is normal, memory intact Exam Initial Vital Signs Temp Pulse Resp BP Pulse Ox 99.1 F 115 18 130/82 100 07/10/17 07:42 06/10/17 07:42 06/10/17 07:42 06/10/17 07:42 06/10/17 07:42 Results - Labs 06/10/17 08:21 06/10/17 08:21 Short CBC 06/10/17 Range/Units 08:21 WBC 19.9 H (4.3-11.1) K/mcL Hgb 11.3 L (12.9-16.9) g/dL Hct 35.7 L (37.5-50.1) % Plt Count 388 (140-400) K/mcL Neutrophils # 16.7 H (1.6-8.9) K/mcL BMP 06/10/17 Range/Units 08:21 Sodium 134 L (136-145) mEq/L Potassium 4.0 (3.5-4.5) mEq/L Chloride 101 (98-109) mEq/L Carbon Dioxide 22 (19-29) mEq/L BUN 11 (8-26) mg/dL Creatinine 1.09 (0.72-1.25) mg/dL Glucose 179 H (70-99) mg/dL Calcium 9.4 (8.6-10.8) mg/dL Cardiac Enzymes 06/10/17 Range/Units 08:21 Troponin I 0.00 (0-0.03) ng/mL Liver Function 06/10/17 Range/Units 08:21 Total Bilirubin 0.6 (0.2-1.2) mg/dL Direct Bilirubin 0.3 (0.0-0.5) mg/dL AST 24 (5-34) Units/L ALT 18 (0-55) Units/L Alkaline Phosphatase 76 (38-126) Units/L Albumin 2.8 L (3.5-5.0) g/dL Vital Signs Temp Pulse Resp BP Pulse Ox 06/10/17 14:50 98.3 F 54 18 116/75 95 06/10/17 11:28 18 116/78 06/10/17 08:55 109 18 125/71 95 06/10/17 07:42 99.1 F 115 18 130/82 100 Intake and Output 06/10/17 06/10/17 06/10/17 07:59 15:59 23:59 Other: Weight 139.706 kg Blood Glucose* 91 Patient Weight 06/10/17 23:59 Weight 139.706 kg Consult Discharge Plan - Plan [facility]errals: [facility] [Primary Care Provider[facility] - <DedeHafsajavon Rios - Last Filed: 06/10/17 18:33> Date of Encounter: 06/10/17 Review of Systems All systems PM: A 10-system review of systems was performed and is negative for pertinent findings except as documented above in the HPI. General Surgery Exam Initial Vital Signs Temp Pulse Resp BP Pulse Ox 99.1 F 115 18 130/82 100 06/10/17 07:42 06/10/17 07:42 06/10/17 07:42 06/10/17 07:42 06/10/17 07:42 Exam Initial Vital Signs Temp Pulse Resp BP Pulse Ox 99.1 F 115 18 130/82 100 06/10/17 07:42 06/10/17 07:42 06/10/17 07:42 06/10/17 07:42 06/10/17 07:42 Results - Labs 06/10/17 08:21 06/10/17 08:21 Abnormal lab results WBC 19.9 K/mcL (4.3-11.1) H 06/10/17 08:21 Hgb 11.3 g/dL (12.9-16.9) L 06/10/17 08:21 Hct 35.7 % (37.5-50.1) L 06/10/17 08:21 MCH 26.4 pg (28.0-33.3) L 06/10/17 08:21 RDW 15.5 % (11.5-14.5) H 06/10/17 08:21 Neutrophils # 16.7 K/mcL (1.6-8.9) H 06/10/17 08:21 Monocytes # 1.8 K/mcL (0.0-1.3) H 06/10/17 08:21 Sodium 134 mEq/L (136-145) L 06/10/17 08:21 Glucose 179 mg/dL (70-99) H 06/10/17 08:21 POC Glucose 91 (58-89) H 06/10/17 14:55 Magnesium 1.5 mg/dL (1.6-2.6) L 06/10/17 08:21 Albumin 2.8 g/dL (3.5-5.0) L 06/10/17 08:21 Globulin 5.1 g/dL (2.4-3.5) H 06/10/17 08:21 Albumin/Globulin Ratio 0.5 (1.1-2.2) L 06/10/17 08:21 All other labs normal. - Attending Attestation I examined this patient and my medical decision-making was reviewed with the JEWELRY DRILL OPERATOR/PA/Advanced Practice Nurse/Resident Physician. I agree with the documented findings, disposition and treatment plan as described except to the extent set forth below. The patient is seen and evaluated in conjunction with the resident. Local wound care measures are indicated. Debridement may be necessary within the next 24-48 hours on the lateral posterior left thigh. Continue to follow along closely with you. Guerrero Aguayo MD FACS
[2017-06-10] MEDS: Insulin LISPRO 300 UNITS/3 ML VIAL SQ SCH ×2 (17:30→20:53)
[2017-06-10] MEDS: Piperacillin/Tazobactam 3.375 GM in D5% in Water (Mini-Bag+) 100 ML IVPB SCH (18:22)
[2017-06-10] MEDS: Nystatin Cream 15 GM TUBE TP SCH (20:54)
[2017-06-10] MEDS: Vancomycin 1,500 MG in D5% in Water 250 ML IVPB SCH (21:56)
[2017-06-11] MEDS: Piperacillin/Tazobactam 3.375 GM in D5% in Water (Mini-Bag+) 100 ML IVPB SCH ×2 (00:09→08:27)
[2017-06-11] MEDS: Ipratropium/Albuterol Neb 3 ML IH SCH ×7 (00:20→23:50)
[2017-06-11] MEDS ORDERED: 0.9 % Sodium Chloride 1,000 ML IVC ONE ×2 (00:42→02:22)
[2017-06-11] MEDS ORDERED: 0.9 % Sodium Chloride 1,000 ML ONE ×2 (00:45→02:11)
[2017-06-11 02:40] LABS: INR 1.3; Prothrombin Time 14.4 Seconds (9.4-12.1)
[2017-06-11 02:42] LABS: Activated Partial Thrombo Time 27.9 Seconds (26.0-36.0)
[2017-06-11 02:53] LABS: BUN/Creatinine Ratio 11 (6-26); Blood Urea Nitrogen 11 mg/dL (8-26); Calcium 8.4 mg/dL (8.6-10.8); Carbon Dioxide 24 mEq/L (19-29); Chloride 103 mEq/L (98-109); Chol/HDL Ratio 4.1 (0-4.9); Cholesterol 103 mg/dL (< 200); Glucose 156 mg/dL (70-99); HDL Cholesterol 25 mg/dL (40-59); LDL Cholesterol,Calculated 55 mg/dL (0-99); Magnesium 1.4 mg/dL (1.6-2.6); Osmolality,Calculated 283 (280-300); Potassium 3.6 mEq/L (3.5-4.5); Sodium 135 mEq/L (136-145); Triglycerides 115 mg/dL (< 150); eGFR For African Americans > 60 (> 60); eGFR For Non-African Americans > 60 (> 60)
[2017-06-11 02:55] LABS: Basophils % 0.3 %; Eosinophils # 0.3 K/mcL (0.0-0.6); Eosinophils % 2.6 %; Immature Granulocytes % 0.4 % (0-4); Lymphocytes # 1.6 K/mcL (0.6-4.6); Lymphocytes % 12.5 %; Mean Corpuscular HGB Conc 31.7 g/dL (31.6-35.5); Mean Corpuscular Hemoglobin 27.1 pg (28.0-33.3); Mean Corpuscular Volume 85.5 fL (83.0-100.0); Mean Platelet Volume 10.2 fL (9.4-12.4); Monocytes # 1.3 K/mcL (0.0-1.3); Monocytes % 10.1 %; Neutrophils # 9.3 K/mcL (1.6-8.9); Platelet Count 327 K/mcL (140-400); Red Blood Count 3.39 M/mcL (4.19-5.50); Red Cell Distribution Width 15.8 % (11.5-14.5); Segmented Neutrophils % 74.1 %
[2017-06-11 03:03] LABS: Hemoglobin 9.2 g/dL (12.9-16.9)
[2017-06-11 04:03] LABS: BUN/Creatinine Ratio 11 (6-26); Blood Urea Nitrogen 10 mg/dL (8-26); Carbon Dioxide 23 mEq/L (19-29); Chloride 106 mEq/L (98-109); Glucose 130 mg/dL (70-99); Osmolality,Calculated 283 (280-300); Potassium 3.8 mEq/L (3.5-4.5); Sodium 136 mEq/L (136-145); eGFR For African Americans > 60 (> 60); eGFR For Non-African Americans > 60 (> 60)
[2017-06-11] MEDS: *HR* Heparin 5,000 UNIT/ML VIAL SQ SCH ×3 (06:08→23:03)
[2017-06-11] MEDS: Insulin LISPRO 300 UNITS/3 ML VIAL SQ SCH ×4 (07:55→22:26)
[2017-06-11] MEDS: Pantoprazole 40 MG VIAL IVP SCH (08:26)
[2017-06-11] MEDS: Furosemide 40 MG/4 ML VIAL IVP SCH ×2 (08:26→17:13)
[2017-06-11] MEDS: Multivit/Ca/Min/Fe/FA 1 TAB TABLET PO SCH (08:27)
[2017-06-11] MEDS: Loratadine 10 MG TABLET PO SCH (08:28)
[2017-06-11] MEDS: Fluticasone Propionate Nasal 50 MCG/SPRAY BOTTLE NS SCH (10:10)
[2017-06-11] MEDS: Vancomycin 1,500 MG in D5% in Water 250 ML IVPB SCH ×2 (10:10→23:04)
[2017-06-11] MEDS: Nystatin Cream 15 GM TUBE TP SCH ×2 (10:11→23:04)
[2017-06-11] MEDS: Silvasorb 44.4 ML TUBE TP SCH (10:12)
--- NOTE | 2017-06-11 11:24 | General Surgery Progress Note ---
<Alicia De Souza Jenna - Last Filed: 06/11/17 11:21> Date of Encounter: 06/11/17 Time of Encounter: 11:22 - Assessment and Plan (1) Decubitus ulcer of left buttock Current Visit: Yes Status: Chronic Continue daily wound care: Wound care regimen - See orders - Santyl daily to left lateral thigh wounds - Allevyn foam dressing to left buttock tear - Vascular wraps on LE daily Santyl for enzymatic debridement May need sharp debridement in the next 24-48 hours Turn Q 2 hours Pressure reduction mattress Diabetic control IV antibiotics ordered per medicine service- Vancomycin and Zosyn Qualifiers: Pressure ulcer stage: unstageable Qualified Code(s): L89.320 - Pressure ulcer of left buttock, unstageable (2) Lower extremity edema Current Visit: No Status: Acute Vascular wraps to bilateral lower extremities daily (3) Morbid obesity with BMI of 40.0-44.9, adult Current Visit: No Status: Chronic (4) Spina bifida Current Visit: No Status: Chronic Qualifiers: Spinal region: lumbosacral Presence of hydrocephalus: unspecified hydrocephalus presence Qualified Code(s): Q05.7 - Lumbar spina bifida without hydrocephalus (5) Diabetes 1.5, managed as type 2 Current Visit: No Status: Acute Controlled Management per hospitalist Subjective Patient reports: no new complaints, feels better, still having pain, pain is less, tolerating a regular diet (diabetic diet), afebrile Objective Vital Signs - Last 8 Hours Temp Pulse Resp BP Pulse Ox 06/11/17 07:52 18 96 06/11/17 07:45 98.3 F 101 18 95/61 98 06/11/17 04:52 97.5 F L 105 18 85/48 98 06/11/17 03:27 98.5 F 108 16 93/58 93 Intake and Output 06/10/17 06/11/17 06/11/17 23:59 07:59 15:59 Intake Total 100 / 100 2650 / 2650 490 / 490 Output Total 650 / 650 200 / 200 Balance -550 / -550 2450 / 2450 490 / 490 Intake: IV Fluids 2400 / 2400 250 / 250 0.9 % Sodium Chloride 1, 2000 / 2000 000 ML @ 3750 mls/hr IVC .Q16M ONE Rx#:[id number] ALBURX 5% 12.5 gm In 250 250 / 250 ml @ 60 mls/hr IVPB ONCE ONE Rx#:[id number] Zosyn 3.375 GM In 150 / 150 Dextrose 5% (Minibag+) 100 ML 100 ML @ 25 mls/hr IVPB Q8HR [facility] Rx#: [id number] Vancocin 1,500 MG In 250 / 250 Dextrose 5% 250 ML @ 167 mls/hr IVPB Q12H [facility] Rx#: [id number] Oral 100 / 100 250 / 250 240 / 240 Output: Urostomy 650 / 650 200 / 200 Other: Meal Breakfast Percent of Meal Consumed 90% Weight 143.3 kg Blood Glucose* 149 123 Patient Weight 06/11/17 23:59 Weight 143.3 kg - General physical appearance well developed, no distress, chronically ill, obese - Eyes normal ocular movement - ENT normal mucosa, atraumatic, normocephalic - Neck Neck exam: trachea midline - Respiratory normal respiratory effort - Cardiovascular Cardiovascular exam: Present: tachycardia - Abdomen Abdomen: Present: bowel sounds present, soft, non tender - Genitourinary other (urostomy with clear, yellow urine noted) - Integumentary other (left posterior thigh with pressure ulcer noted with central necrosis; left buttock skin tear noted X 2 with healthy granulation tissue) - Musculoskeletal other (bilateral lower extremities with 3+ pitting edema noted) - Psychiatric oriented to time, oriented to person, oriented to place, speech is normal, memory intact - Labs 06/11/17 02:16 06/11/17 03:42 Diabetes panel 06/11/17 06/11/17 Range/Units 02:16 03:42 Sodium 135 L 136 (136-145) mEq/L Potassium 3.6 3.8 (3.5-4.5) mEq/L Chloride 103 106 (98-109) mEq/L Carbon Dioxide 24 23 (19-29) mEq/L BUN 11 10 (8-26) mg/dL Creatinine 1.04 0.91 (0.72-1.25) mg/dL Glucose 156 H 130 H (70-99) mg/dL Calcium 8.4 L 8.0 L (8.6-10.8) mg/dL Triglycerides 115 (< 150) mg/dL HDL Cholesterol 25 L (40-59) mg/dL Calcium panel 06/11/17 06/11/17 Range/Units 02:16 03:42 Calcium 8.4 L 8.0 L (8.6-10.8) mg/dL Pituitary panel 06/11/17 06/11/17 Range/Units 02:16 03:42 Sodium 135 L 136 (136-145) mEq/L Potassium 3.6 3.8 (3.5-4.5) mEq/L Chloride 103 106 (98-109) mEq/L Carbon Dioxide 24 23 (19-29) mEq/L BUN 11 10 (8-26) mg/dL Creatinine 1.04 0.91 (0.72-1.25) mg/dL Glucose 156 H 130 H (70-99) mg/dL Calcium 8.4 L 8.0 L (8.6-10.8) mg/dL Adrenal panel 06/11/17 06/11/17 Range/Units 02:16 03:42 Sodium 135 L 136 (136-145) mEq/L Potassium 3.6 3.8 (3.5-4.5) mEq/L Chloride 103 106 (98-109) mEq/L Carbon Dioxide 24 23 (19-29) mEq/L BUN 11 10 (8-26) mg/dL Creatinine 1.04 0.91 (0.72-1.25) mg/dL Glucose 156 H 130 H (70-99) mg/dL Calcium 8.4 L 8.0 L (8.6-10.8) mg/dL Consult Discharge Plan - Plan Referrals: Maria Elena An MD [Primary Care Provider] - (SENT WEB REQUEST ON 06-12-17 @ 1005) - Attending Attestation I examined this patient and my medical decision-making was reviewed with the MEDIA MONITOR/PA/Advanced Practice Nurse/Resident Physician. I agree with the documented findings, disposition and treatment plan as described except to the extent set forth below. <Guerrero Aguayo - Last Filed: 06/12/17 16:08> Date of Encounter: 06/11/17 Objective Vital Signs - Last 8 Hours Temp Pulse Resp BP Pulse Ox 06/12/17 15:22 16 97 06/12/17 14:30 97.8 F 105 16 107/78 97 06/12/17 13:28 100 16 101/67 97 06/12/17 12:27 107 97 06/12/17 11:25 97.0 F L 108 16 121/68 95 06/12/17 11:04 14 93 06/12/17 10:15 108 16 124/73 99 Intake and Output 06/12/17 06/12/17 06/12/17 07:59 15:59 23:59 Intake Total 250 / 250 480 / 480 Output Total 450 / 450 2250 / 2250 Balance -200 / -200 -1770 / -1770 Intake: IV Fluids 250 / 250 Vancocin 1,500 MG In 250 / 250 Dextrose 5% 250 ML @ 167 mls/hr IVPB Q12H [facility] Rx#: [id number] Oral 480 / 480 Output: Urostomy 450 / 450 2250 / 2250 Other: Meal Lunch Percent of Meal Consumed 100% Weight 136 kg Blood Glucose* 153 145 Patient Weight 06/12/17 23:59 Weight 136 kg - Labs 06/12/17 03:47 06/12/17 03:47 Diabetes panel 06/12/17 Range/Units 03:47 Sodium 138 (136-145) mEq/L Potassium 3.8 (3.5-4.5) mEq/L Chloride 103 (98-109) mEq/L Carbon Dioxide 27 (19-29) mEq/L BUN 14 (8-26) mg/dL Creatinine 0.99 (0.72-1.25) mg/dL Glucose 153 H (70-99) mg/dL Calcium 8.9 (8.6-10.8) mg/dL Calcium panel 06/12/17 Range/Units 03:47 Calcium 8.9 (8.6-10.8) mg/dL Pituitary panel 06/12/17 Range/Units 03:47 Sodium 138 (136-145) mEq/L Potassium 3.8 (3.5-4.5) mEq/L Chloride 103 (98-109) mEq/L Carbon Dioxide 27 (19-29) mEq/L BUN 14 (8-26) mg/dL Creatinine 0.99 (0.72-1.25) mg/dL Glucose 153 H (70-99) mg/dL Calcium 8.9 (8.6-10.8) mg/dL Adrenal panel 06/12/17 Range/Units 03:47 Sodium 138 (136-145) mEq/L Potassium 3.8 (3.5-4.5) mEq/L Chloride 103 (98-109) mEq/L Carbon Dioxide 27 (19-29) mEq/L BUN 14 (8-26) mg/dL Creatinine 0.99 (0.72-1.25) mg/dL Glucose 153 H (70-99) mg/dL Calcium 8.9 (8.6-10.8) mg/dL - Attending Attestation The patient is seen and evaluated. His care is discussed with his family and with the clinical nurse practitioner. Debridement may be further required on the posterior thigh after application of Santyl and gentamicin Guerrero Aguayo MD FACS
[2017-06-11] MEDS: Ertapenem 1,000 MG in 0.9 % Sodium Chloride Mini Bag 100 ML IVPB SCH (12:23)
[2017-06-11] MEDS ORDERED: Magnesium Sulfate 2 GM in D5% in Water 100 ML IVPB ONE (15:45)
[2017-06-11] MEDS: Saline Nasal Spray 44 ML BOTTLE NS SCH (15:46)
--- NOTE | 2017-06-11 17:05 | Venous Imaging Report ---
LE Venous Duplex Patient Name:Sammy Leone Order Number:[id number] Procedure Date:06/10/2017 Date:1970Age:47 yrs Gender:Male Location:[facility] ED Room #: ER04 Medical Officer:Medina Cook RDCS Referring MD:DO Katerina Arredondo MD:Brian Alvarez MD Primary Indications:Swelling of limb Secondary Indications: Impressions: Normal left lower extremity deep and superficial venous exam in visualized vessels. Technically limited study due to body habitus. Recommendations: Extremely limited due to pt body habitus, discussed with ordering provider Jeffrey Wilder. Findings Venous Duplex Results: Left: Venous imaging of the lower extremity reveals full patency and normal vessel compressibility of the left distal iliac, left common femoral, left posterior tibial and left great saphenous. Doppler signals in the evaluated veins were normal. The left superficial femoral, left popliteal, left peroneal and left lesser saphenous veins were not well visualized. Lower Extremity Venous Duplex Side Vein Compress Spontaneous Flow Augment Diameter (cm) Depth (cm) Left Distal Iliac Normal yes Phasic yes Left Common Femoral Normal yes Phasic yes Left Superficial Femoral Left Popliteal Left Posterior Tibial Normal yes Phasic yes Left Peroneal Left Great Saphenous Normal yes Phasic yes Left Lesser Saphenous Updated by Brian Alvarez MD on 06/11/2017 4:58:38 PM electronically signed on 06/11/2017 4:58:51 PM with status of Final
[2017-06-11 17:15] LABS: Acinetobacter baumannii by PCR Not Detected (Not Detect); Candida albicans by PCR Not Detected (Not Detect); Candida glabrata by PCR Not Detected (Not Detect); Candida krusei by PCR Not Detected (Not Detect); Candida parapsilosis by PCR Not Detected (Not Detect); Candida tropicalis by PCR Not Detected (Not Detect); Enterococcus by PCR Not Detected (Not Detect); Escherichia coli by PCR Not Detected (Not Detect); Klebsiella oxytoca by PCR Not Detected (Not Detect); Klebsiella pneumoniae by PCR Not Detected (Not Detect); Pseudomonas aeruginosa by PCR Not Detected (Not Detect); Serratia marcescens by PCR Not Detected (Not Detect); Staphylococcus aureus by PCR Not Detected (Not Detect); Streptococcus agalactiae(B)PCR Not Detected (Not Detect); Streptococcus by PCR Not Detected (Not Detect); Streptococcus pneumoniae PCR Not Detected (Not Detect); Streptococcus pyogenes (A) PCR Not Detected (Not Detect); blaKPC Carbapenem-Resist Gene Not Detected (Not Detect); mecA Methicillin-Resist Gene Not Detected (Not Detect); vanA/B Vancomycin-Resist Genes Not Detected (Not Detect)
--- NOTE | 2017-06-11 18:29 | Internal Med Progress Note ---
Date of Encounter: 06/11/17 Time of Encounter: 11:00 - Assessment and plan (1) Sepsis Current Visit: Yes Status: Acute Assessment and plan: secondary to GNR decubitus ulcer infection and GPC bacteremia. 06/10: Wound culture growing GNR. 06/10: Blood culture growing GPC / bottle. Repeat blood cultures in a.m. Continue IV vancomycin. Given history of resistant Morganella morganii UTI, I will stop Zosyn and start ertapenem. Appreciate surgery service, plan for debridement in the near future. Qualifiers: Sepsis type: sepsis due to unspecified organism Qualified Code(s): A41.9 - Sepsis, unspecified organism (2) Decubitus ulcer of left ankle, stage 3 Current Visit: Yes Status: Chronic Assessment and plan: plan as above (3) Decubitus ulcer of left buttock Current Visit: Yes Status: Chronic Assessment and plan: plan as above Qualifiers: Pressure ulcer stage: unstageable Qualified Code(s): L89.320 - Pressure ulcer of left buttock, unstageable (4) Decubitus ulcer of left thigh, stage 3 Current Visit: Yes Status: Acute Assessment and plan: plan as above (5) Diabetes Current Visit: Yes Status: Chronic Assessment and plan: ISS. Fasting glucose is adequate. Qualifiers: Diabetes mellitus type: type 2 Diabetes mellitus complication status: with skin complications Diabetes mellitus complication detail: with other skin ulcer Diabetes mellitus retirement insulin use: unspecified termite control technician insulin use status Qualified Code(s): E11.622 - Type 2 diabetes mellitus with other skin ulcer; L98.499 - Non-pressure chronic ulcer of skin of other sites with unspecified severity (6) Spina bifida Current Visit: No Status: Chronic Qualifiers: Spinal region: lumbosacral Presence of hydrocephalus: unspecified hydrocephalus presence Qualified Code(s): Q05.7 - Lumbar spina bifida without hydrocephalus - Subjective Interval history: patient reports pain at buttock. - Constitutional Vitals: Temp Pulse Resp BP Pulse Ox 97.5 F L 100 18 110/57 95 06/11/17 15:29 06/11/17 15:29 06/11/17 16:21 06/11/17 15:29 06/11/17 16:21 General appearance: Present: cooperative, A&O X 3, morbidly obese, pleasant, no acute distress, answers questions appropriately - Neck Neck exam general surgery: Present: supple, trachea midline. Absent: lymphadenopathy - Respiratory Respiratory exam: Present: rales (bibasal) - Cardiovascular Cardiovascular exam: Present: RRR - GI/Abdominal GI/Abdominal exam: Present: normal bowel sounds, soft. Absent: distended, tenderness - Extremities Exam Extremities exam: Present: pedal edema (swelling of LE) - Neurological Exam Neurological exam: Present: alert, oriented X3. Absent: facial droop, speech deficit Internal Medicine: Result - Labs CBC & Chem 7: 06/11/17 02:16 06/11/17 03:42 Labs: Short CBC 06/11/17 Range/Units 02:16 WBC 12.6 H (4.3-11.1) K/mcL Hgb 9.2 L D (12.9-16.9) g/dL Hct 29.0 L (37.5-50.1) % Plt Count 327 (140-400) K/mcL Neutrophils # 9.3 H (1.6-8.9) K/mcL BMP 06/11/17 06/11/17 02:16 03:42 Sodium 135 L 136 Potassium 3.6 3.8 Chloride 103 106 Carbon Dioxide 24 23 BUN 11 10 Creatinine 1.04 0.91 Glucose 156 H 130 H Calcium 8.4 L 8.0 L - ABG Interpretation ABG results: PT/INR, D-dimer PT 14.4 Seconds (9.4-12.1) H 06/11/17 02:16 - VTE Documentation of Mechanical Device: Graduated compression elastic hosiery Consult Discharge Plan - Plan [facility]errals: [facility] [Primary Care Provider] -
[2017-06-12 04:43] LABS: Basophils # 0.1 K/mcL (0.0-0.2); Basophils % 0.5 %; Eosinophils # 0.5 K/mcL (0.0-0.6); Eosinophils % 4.9 %; Hematocrit 30.6 % (37.5-50.1); Hemoglobin 9.6 g/dL (12.9-16.9); Immature Granulocytes % 0.5 % (0-4); Lymphocytes # 1.4 K/mcL (0.6-4.6); Lymphocytes % 13.6 %; Mean Corpuscular HGB Conc 31.4 g/dL (31.6-35.5); Mean Corpuscular Hemoglobin 26.7 pg (28.0-33.3); Mean Corpuscular Volume 85.2 fL (83.0-100.0); Mean Platelet Volume 10.1 fL (9.4-12.4); Monocytes # 0.9 K/mcL (0.0-1.3); Monocytes % 8.6 %; Neutrophils # 7.6 K/mcL (1.6-8.9); Platelet Count 372 K/mcL (140-400); Red Blood Count 3.59 M/mcL (4.19-5.50); Red Cell Distribution Width 15.6 % (11.5-14.5); Segmented Neutrophils % 71.9 %
[2017-06-12 05:04] LABS: BUN/Creatinine Ratio 14 (6-26); Blood Urea Nitrogen 14 mg/dL (8-26); Calcium 8.9 mg/dL (8.6-10.8); Carbon Dioxide 27 mEq/L (19-29); Chloride 103 mEq/L (98-109); Glucose 153 mg/dL (70-99); Magnesium 1.8 mg/dL (1.6-2.6); Osmolality,Calculated 290 (280-300); Potassium 3.8 mEq/L (3.5-4.5); Sodium 138 mEq/L (136-145); eGFR For African Americans > 60 (> 60); eGFR For Non-African Americans > 60 (> 60)
[2017-06-12] MEDS: Ipratropium/Albuterol Neb 3 ML IH SCH ×6 (05:12→23:41)
[2017-06-12] MEDS: *HR* Heparin 5,000 UNIT/ML VIAL SQ SCH ×3 (06:49→20:45)
[2017-06-12] MEDS: Furosemide 40 MG/4 ML VIAL IVP SCH ×2 (09:37→17:32)
[2017-06-12] MEDS: Multivit/Ca/Min/Fe/FA 1 TAB TABLET PO SCH (09:37)
[2017-06-12] MEDS: Loratadine 10 MG TABLET PO SCH (09:37)
[2017-06-12] MEDS: Insulin LISPRO 300 UNITS/3 ML VIAL SQ SCH ×4 (09:38→22:15)
[2017-06-12] MEDS: Fluticasone Propionate Nasal 50 MCG/SPRAY BOTTLE NS SCH (09:38)
[2017-06-12] MEDS: Ertapenem 1,000 MG in 0.9 % Sodium Chloride Mini Bag 100 ML IVPB SCH (09:39)
[2017-06-12] MEDS: Nystatin Cream 15 GM TUBE TP SCH ×2 (09:40→22:33)
[2017-06-12] MEDS: Pantoprazole 40 MG VIAL IVP SCH (09:40)
[2017-06-12] MEDS: Silvasorb 44.4 ML TUBE TP SCH (09:40)
[2017-06-12] MEDS: Vancomycin 1,500 MG in D5% in Water 250 ML IVPB SCH ×2 (09:59→22:27)
--- NOTE | 2017-06-12 16:34 | General Surgery Procedure Note ---
Date of procedure: 06/12/17 Pre-op diagnosis: Necrotic decubitus ulcer of posterior left thigh Post-op diagnosis: other (Stage III decubitus ulcer of posterior left thigh) Procedure: After informed consent was obtained and timeout performed, the patient was placed in the right lateral position. Sharp debridement of the posterior left thigh ulcer was complete with the use of a #10 blade scalpel. I debrided through skin and subcutaneous tissue. The patient tolerated this well. Please continue daily wound care as previously ordered. Complications: none Anesthesia: none Surgeon: Alicia De Souza Supervisor Wood Room: Marlene Schmidt Estimated blood loss (cc): 0 Pathology: none sent Condition: stable Disposition: no change
[2017-06-12] MEDS: Saline Nasal Spray 44 ML BOTTLE NS SCH (17:32)
--- NOTE | 2017-06-12 20:25 | Internal Med Progress Note ---
Date of Encounter: 06/12/17 Time of Encounter: 11:00 - Assessment and plan (1) Sepsis Current Visit: Yes Status: Acute Assessment and plan: secondary to GNR decubitus ulcer infection and GPC bacteremia. 06/10: Wound culture grew ESBL. 06/10: Blood culture growing GPC 12/02 bottle. 06/12: Repeat blood cultures taken. Continue IV vancomycin and ertapenem. Appreciate surgery service, plan for debridement today. Clinically slowly improving. Qualifiers: Sepsis type: sepsis due to unspecified organism Qualified Code(s): A41.9 - Sepsis, unspecified organism (2) Decubitus ulcer of left ankle, stage 3 Current Visit: Yes Status: Chronic Assessment and plan: plan as above (3) Decubitus ulcer of left buttock Current Visit: Yes Status: Chronic Assessment and plan: plan as above Qualifiers: Pressure ulcer stage: unstageable Qualified Code(s): L89.320 - Pressure ulcer of left buttock, unstageable (4) Decubitus ulcer of left thigh, stage 3 Current Visit: Yes Status: Acute Assessment and plan: plan as above (5) Acute diastolic heart failure Current Visit: Yes Status: Acute Assessment and plan: Good response to diuresis. Patient had 4.8 L of urine output in the past 24 hours. Continue IV Lasix. Fluid restriction. Echocardiogram revealed LVEF 60%, indeterminate diastolic function due to tachycardia. Normal right ventricular function. No significant valvular dysfunction. (6) Diabetes Current Visit: Yes Status: Chronic Assessment and plan: ISS. Fasting glucose is adequate. Qualifiers: Diabetes mellitus type: type 2 Diabetes mellitus complication status: with skin complications Diabetes mellitus complication detail: with other skin ulcer Diabetes mellitus chcf insulin use: unspecified chcf insulin use status Qualified Code(s): E11.622 - Type 2 diabetes mellitus with other skin ulcer; L98.499 - Non-pressure chronic ulcer of skin of other sites with unspecified severity (7) Spina bifida Current Visit: No Status: Chronic Qualifiers: Spinal region: lumbosacral Presence of hydrocephalus: unspecified hydrocephalus presence Qualified Code(s): Q05.7 - Lumbar spina bifida without hydrocephalus - Subjective Interval history: Patient feels better, he reports his abdominal swelling is going down. - Constitutional Vitals: Temp Pulse Resp BP Pulse Ox 98 F 104 22 109/73 98 06/12/17 19:58 06/12/17 19:58 06/12/17 20:16 06/12/17 19:58 06/12/17 20:16 General appearance: Present: cooperative, A&O X 3, morbidly obese, pleasant, no acute distress, answers questions appropriately - Neck Neck exam general surgery: Present: trachea midline - Respiratory Respiratory exam: Present: CTAB - Cardiovascular Cardiovascular exam: Present: RRR - GI/Abdominal GI/Abdominal exam: Present: normal bowel sounds, soft. Absent: distended, tenderness - Extremities Exam Extremities exam: Present: pedal edema (2+ lower extremity edema with chronic venostasis changes.) - Neurological Exam Neurological exam: Present: alert, oriented X3. Absent: facial droop, speech deficit - Skin Skin exam: Absent: intact (Multiple decubitus ulcer on his buttock, thigh.) Internal Medicine: Result - Labs CBC & Chem 7: 06/12/17 03:47 06/12/17 03:47 Labs: Short CBC 06/12/17 Range/Units 03:47 WBC 10.6 (4.3-11.1) K/mcL Hgb 9.6 L (12.9-16.9) g/dL Hct 30.6 L (37.5-50.1) % Plt Count 372 (140-400) K/mcL Neutrophils # 7.6 (1.6-8.9) K/mcL BMP 06/12/17 03:47 Sodium 138 Potassium 3.8 Chloride 103 Carbon Dioxide 27 BUN 14 Creatinine 0.99 Glucose 153 H Calcium 8.9 - ABG Interpretation ABG results: PT/INR, D-dimer PT 14.4 Seconds (9.4-12.1) H 06/11/17 02:16 - VTE Documentation of Mechanical Device: Graduated compression elastic hosiery Consult Discharge Plan - Plan Referrals: Maria Elena An MD [Primary Care Provider] - (SENT WEB REQUEST ON 06-12-17 @ [id number])
[2017-06-13] MEDS: Ipratropium/Albuterol Neb 3 ML IH SCH ×6 (04:58→23:30)
[2017-06-13 07:00] LABS: Basophils # 0.1 K/mcL (0.0-0.2); Basophils % 0.6 %; Eosinophils # 0.6 K/mcL (0.0-0.6); Eosinophils % 5.8 %; Hematocrit 33.8 % (37.5-50.1); Hemoglobin 10.4 g/dL (12.9-16.9); Immature Granulocytes % 0.8 % (0-4); Lymphocytes # 1.5 K/mcL (0.6-4.6); Lymphocytes % 13.6 %; Mean Corpuscular HGB Conc 30.8 g/dL (31.6-35.5); Mean Corpuscular Hemoglobin 26.2 pg (28.0-33.3); Mean Corpuscular Volume 85.1 fL (83.0-100.0); Mean Platelet Volume 9.9 fL (9.4-12.4); Neutrophils # 7.8 K/mcL (1.6-8.9); Nucleated Red Blood Cells 0.2 /100 WBC (0); Platelet Count 424 K/mcL (140-400); Red Blood Count 3.97 M/mcL (4.19-5.50); Red Cell Distribution Width 15.7 % (11.5-14.5); Segmented Neutrophils % 70.2 %
[2017-06-13 07:17] LABS: BUN/Creatinine Ratio 15 (6-26); Blood Urea Nitrogen 16 mg/dL (8-26); Calcium 9.5 mg/dL (8.6-10.8); Carbon Dioxide 27 mEq/L (19-29); Chloride 103 mEq/L (98-109); Glucose 154 mg/dL (70-99); Magnesium 1.8 mg/dL (1.6-2.6); Osmolality,Calculated 290 (280-300); Potassium 4.2 mEq/L (3.5-4.5); Sodium 138 mEq/L (136-145); eGFR For African Americans > 60 (> 60); eGFR For Non-African Americans > 60 (> 60)
[2017-06-13] MEDS ORDERED: Aminoglycoside Consult 1 EACH MC ONE (07:34)
[2017-06-13] MEDS: *HR* Heparin 5,000 UNIT/ML VIAL SQ SCH ×3 (08:36→21:51)
[2017-06-13] MEDS: Multivit/Ca/Min/Fe/FA 1 TAB TABLET PO SCH (08:37)
[2017-06-13] MEDS: Furosemide 40 MG/4 ML VIAL IVP SCH ×2 (08:37→18:01)
[2017-06-13] MEDS: Loratadine 10 MG TABLET PO SCH (08:37)
[2017-06-13] MEDS: Ertapenem 1,000 MG in 0.9 % Sodium Chloride Mini Bag 100 ML IVPB SCH (08:38)
[2017-06-13] MEDS: Vancomycin 1,500 MG in D5% in Water 250 ML IVPB SCH (09:57)
[2017-06-13] MEDS: Fluticasone Propionate Nasal 50 MCG/SPRAY BOTTLE NS SCH (09:58)
[2017-06-13] MEDS: Silvasorb 44.4 ML TUBE TP SCH (09:59)
[2017-06-13] MEDS: Nystatin Cream 15 GM TUBE TP SCH ×2 (09:59→21:42)
[2017-06-13] MEDS: Insulin LISPRO 300 UNITS/3 ML VIAL SQ SCH ×4 (10:01→21:31)
[2017-06-13] MEDS: Saline Nasal Spray 44 ML BOTTLE NS SCH (15:06)
--- NOTE | 2017-06-13 15:38 | General Surgery Progress Note ---
<Marlene Schmidt - Last Filed: 06/13/17 15:39> Date of Encounter: 06/13/17 Time of Encounter: 15:20 - Assessment and Plan (1) Decubitus ulcer of left thigh, stage 3 Current Visit: Yes Status: Acute Continue daily wound care: Wound care regimen - See orders - Santyl daily to left lateral thigh wounds - Allevyn foam dressing to left buttock tear - Vascular wraps on LE daily Santyl for enzymatic debridement Turn Q 2 hours Pressure reduction mattress Follow-up with [facility] 07/01/2017 at 10:00 am (2) Morbid obesity with BMI of 40.0-44.9, adult Current Visit: No Status: Chronic Encouraged activity as tolerated. Encouraged pt to turn frequently and attempt to keep pressure off the decubuti (3) Spina bifida Current Visit: No Status: Chronic Qualifiers: Spinal region: lumbosacral Presence of hydrocephalus: unspecified hydrocephalus presence Qualified Code(s): Q05.7 - Lumbar spina bifida without hydrocephalus Subjective Patient reports: feels better, pain is less, voiding w/o difficulty (Per urostomy) Objective Vital Signs - Last 8 Hours Temp Pulse Resp BP Pulse Ox 06/13/17 12:21 98.2 F 79 18 137/88 94 06/13/17 11:38 16 95 06/13/17 10:51 96.7 F L 99 32 120/78 96 06/13/17 10:26 99 06/13/17 08:35 92 06/13/17 08:05 22 95 06/13/17 07:38 98.2 F 99 18 120/78 96 Intake and Output 06/12/17 06/13/17 06/13/17 23:59 07:59 15:59 Intake Total 740 / 740 550 / 550 240 / 240 Output Total 1300 / 1300 1150 / 1150 Balance -560 / -560 -600 / -600 240 / 240 Intake: IV Fluids 250 / 250 Vancocin 1,500 MG In 250 / 250 Dextrose 5% 250 ML @ 167 mls/hr IVPB Q12H [facility] Rx#: [id number] Oral 740 / 740 240 / 240 Free Water 300 / 300 Output: Urostomy 600 / 600 Right Nephrostomy 1300 / 1300 Catheter 550 / 550 Other: Meal Dinner Breakfast Percent of Meal Consumed 100% 100% Blood Glucose* 163 147 133 - General physical appearance no distress, no pain - Eyes normal ocular movement - ENT normal mucosa - Neck Neck exam: trachea midline - Cardiovascular Cardiovascular exam: Present: RRR - Integumentary other (Left lower extremity (upper thigh) DU (distally) with granulation tissue noted after mechanical debridemet. The more proximal lesion is noted to have some softening with Santyl ) - Psychiatric oriented to time, oriented to person, oriented to place - Labs 06/13/17 06:17 06/13/17 06:17 Diabetes panel 06/13/17 Range/Units 06:17 Sodium 138 (136-145) mEq/L Potassium 4.2 (3.5-4.5) mEq/L Chloride 103 (98-109) mEq/L Carbon Dioxide 27 (19-29) mEq/L BUN 16 (8-26) mg/dL Creatinine 1.05 (0.72-1.25) mg/dL Glucose 154 H (70-99) mg/dL Calcium 9.5 (8.6-10.8) mg/dL Calcium panel 06/13/17 Range/Units 06:17 Calcium 9.5 (8.6-10.8) mg/dL Pituitary panel 06/13/17 Range/Units 06:17 Sodium 138 (136-145) mEq/L Potassium 4.2 (3.5-4.5) mEq/L Chloride 103 (98-109) mEq/L Carbon Dioxide 27 (19-29) mEq/L BUN 16 (8-26) mg/dL Creatinine 1.05 (0.72-1.25) mg/dL Glucose 154 H (70-99) mg/dL Calcium 9.5 (8.6-10.8) mg/dL Adrenal panel 06/13/17 Range/Units 06:17 Sodium 138 (136-145) mEq/L Potassium 4.2 (3.5-4.5) mEq/L Chloride 103 (98-109) mEq/L Carbon Dioxide 27 (19-29) mEq/L BUN 16 (8-26) mg/dL Creatinine 1.05 (0.72-1.25) mg/dL Glucose 154 H (70-99) mg/dL Calcium 9.5 (8.6-10.8) mg/dL - VTE Documentation of Mechanical Device: Graduated compression elastic hosiery Consult Discharge Plan - Plan Additional Instructions: Continue daily wound care: Wound care regimen - See orders - Santyl daily to left lateral thigh wounds - Allevyn foam dressing to left buttock tear - Vascular wraps on LE daily Santyl for enzymatic debridement Turn Q 2 hours Pressure reduction mattress Follow-up with [facility] 07/01/2017 at 10:00 am Referrals: Maria Elena An MD [Primary Care Provider] - (Patient is going to [facility], no PCP appointment needed) <Guerrero Aguayo - Last Filed: 06/13/17 21:48> Date of Encounter: 06/13/17 Objective Vital Signs - Last 8 Hours Temp Pulse Resp BP Pulse Ox 06/13/17 20:00 98.4 F 110 18 132/83 94 06/13/17 19:45 19 92 06/13/17 16:58 98.7 F 108 16 143/87 93 06/13/17 16:23 18 94 Intake and Output 06/13/17 06/13/17 06/13/17 07:59 15:59 23:59 Intake Total 550 / 550 240 / 240 240 / 240 Output Total 1150 / 1150 2100 / 2100 Balance -600 / -600 240 / 240 -1860 / -1860 Intake: IV Fluids 250 / 250 Vancocin 1,500 MG In 250 / 250 Dextrose 5% 250 ML @ 167 mls/hr IVPB Q12H [facility] Rx#: [id number] Oral 240 / 240 240 / 240 Free Water 300 / 300 Output: Urostomy 600 / 600 2100 / 2100 Catheter 550 / 550 Other: Meal Breakfast Dinner Percent of Meal Consumed 100% 100% Blood Glucose* 147 133 137 - Labs 06/13/17 06:17 06/13/17 06:17 Diabetes panel 06/13/17 Range/Units 06:17 Sodium 138 (136-145) mEq/L Potassium 4.2 (3.5-4.5) mEq/L Chloride 103 (98-109) mEq/L Carbon Dioxide 27 (19-29) mEq/L BUN 16 (8-26) mg/dL Creatinine 1.05 (0.72-1.25) mg/dL Glucose 154 H (70-99) mg/dL Calcium 9.5 (8.6-10.8) mg/dL Calcium panel 06/13/17 Range/Units 06:17 Calcium 9.5 (8.6-10.8) mg/dL Pituitary panel 06/13/17 Range/Units 06:17 Sodium 138 (136-145) mEq/L Potassium 4.2 (3.5-4.5) mEq/L Chloride 103 (98-109) mEq/L Carbon Dioxide 27 (19-29) mEq/L BUN 16 (8-26) mg/dL Creatinine 1.05 (0.72-1.25) mg/dL Glucose 154 H (70-99) mg/dL Calcium 9.5 (8.6-10.8) mg/dL Adrenal panel 06/13/17 Range/Units 06:17 Sodium 138 (136-145) mEq/L Potassium 4.2 (3.5-4.5) mEq/L Chloride 103 (98-109) mEq/L Carbon Dioxide 27 (19-29) mEq/L BUN 16 (8-26) mg/dL Creatinine 1.05 (0.72-1.25) mg/dL Glucose 154 H (70-99) mg/dL Calcium 9.5 (8.6-10.8) mg/dL - Attending Attestation I examined this patient and my medical decision-making was reviewed with the BLUNGER LOADER/PA/Advanced Practice Nurse/Resident Physician. I agree with the documented findings, disposition and treatment plan as described except to the extent set forth below. The patient was seen and evaluated on morning rounds with the resident. We will continue with wound care as previously outlined watch for any signs of continued sepsis. He may require serial debridement. Guerrero Aguayo MD FACS
--- NOTE | 2017-06-13 17:06 | Internal Med Progress Note ---
Date of Encounter: 06/13/17 Time of Encounter: 11:30 - Assessment and plan (1) Sepsis Current Visit: Yes Status: Acute Assessment and plan: secondary to GNR decubitus ulcer infection and GPC bacteremia. 06/10: Wound culture grew proteus ESBL. 06/10: Blood culture growing GPC / bottle. pcr showed staphylococcus sp, not MRSA. likely contaminant. 06/12: Repeat blood cultures taken. 06/12: pt had debridement at bedside. slowly improving. stop IV vancomycin, continue Ertapenem. Appreciate surgery input. Qualifiers: Sepsis type: sepsis due to unspecified organism Qualified Code(s): A41.9 - Sepsis, unspecified organism (2) Decubitus ulcer of left ankle, stage 3 Current Visit: Yes Status: Chronic Assessment and plan: plan as above (3) Decubitus ulcer of left buttock Current Visit: Yes Status: Chronic Assessment and plan: plan as above Qualifiers: Pressure ulcer stage: unstageable Qualified Code(s): L89.320 - Pressure ulcer of left buttock, unstageable (4) Decubitus ulcer of left thigh, stage 3 Current Visit: Yes Status: Acute Assessment and plan: plan as above (5) Acute diastolic heart failure Current Visit: Yes Status: Acute Assessment and plan: Good response to diuresis. good diuresis with IV Lasix. Fluid restriction. Echocardiogram revealed LVEF 60%, indeterminate diastolic function due to tachycardia. Normal right ventricular function. No significant valvular dysfunction. (6) Diabetes Current Visit: Yes Status: Chronic Assessment and plan: ISS. Fasting glucose is adequate. 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 - Constitutional Vitals: Temp Pulse Resp BP Pulse Ox 98.2 F 79 18 137/88 94 06/13/17 12:21 06/13/17 12:21 06/13/17 16:23 06/13/17 12:21 06/13/17 16:23 General appearance: Present: cooperative, A&O X 3, morbidly obese, pleasant, no acute distress, answers questions appropriately - Neck Neck exam general surgery: Present: supple, trachea midline. Absent: lymphadenopathy - Respiratory Respiratory exam: Present: CTAB - Cardiovascular Cardiovascular exam: Present: RRR - GI/Abdominal GI/Abdominal exam: Present: normal bowel sounds, soft. Absent: distended, tenderness - Extremities Exam Extremities exam: Present: pedal edema (1+ LE edema) - Neurological Exam Neurological exam: Present: alert, oriented X3. Absent: facial droop, speech deficit - Skin Skin exam: Absent: intact (decubitus ulver on buttocks, thighs, with wound vac.) Internal Medicine: Result - Labs CBC & Chem 7: 06/13/17 06:17 06/13/17 06:17 Labs: Short CBC 06/13/17 Range/Units 06:17 WBC 11.1 (4.3-11.1) K/mcL Hgb 10.4 L (12.9-16.9) g/dL Hct 33.8 L (37.5-50.1) % Plt Count 424 H (140-400) K/mcL Neutrophils # 7.8 (1.6-8.9) K/mcL BMP 06/13/17 06:17 Sodium 138 Potassium 4.2 Chloride 103 Carbon Dioxide 27 BUN 16 Creatinine 1.05 Glucose 154 H Calcium 9.5 - ABG Interpretation ABG results: PT/INR, D-dimer PT 14.4 Seconds (9.4-12.1) H 06/11/17 02:16 - VTE Documentation of Mechanical Device: Graduated compression elastic hosiery Consult Discharge Plan - Plan Additional Instructions: Continue daily wound care: Wound care regimen - See orders - Santyl daily to left lateral thigh wounds - Allevyn foam dressing to left buttock tear - Vascular wraps on LE daily Santyl for enzymatic debridement Turn Q 2 hours Pressure reduction mattress Follow-up with [facility] 07/01/2017 at 10:00 am Referrals: Maria Elena An MD [Primary Care Provider] - ([facility] is going to [facility], no PCP appointment needed)
[2017-06-14] MEDS: Ipratropium/Albuterol Neb 3 ML IH SCH ×4 (04:19→16:04)
[2017-06-14 05:15] LABS: Basophils # 0.1 K/mcL (0.0-0.2); Basophils % 0.7 %; Eosinophils # 0.7 K/mcL (0.0-0.6); Eosinophils % 5.1 %; Hematocrit 34.7 % (37.5-50.1); Hemoglobin 10.9 g/dL (12.9-16.9); Immature Granulocytes % 1.2 % (0-4); Lymphocytes # 1.9 K/mcL (0.6-4.6); Lymphocytes % 14.5 %; Mean Corpuscular HGB Conc 31.4 g/dL (31.6-35.5); Mean Corpuscular Hemoglobin 26.7 pg (28.0-33.3); Mean Platelet Volume 10.1 fL (9.4-12.4); Monocytes # 1.1 K/mcL (0.0-1.3); Monocytes % 8.4 %; Neutrophils # 9.1 K/mcL (1.6-8.9); Nucleated Red Blood Cells 0.2 /100 WBC (0); Platelet Count 464 K/mcL (140-400); Red Blood Count 4.08 M/mcL (4.19-5.50); Red Cell Distribution Width 15.8 % (11.5-14.5); Segmented Neutrophils % 70.1 %
[2017-06-14 05:24] LABS: BUN/Creatinine Ratio 18 (6-26); Blood Urea Nitrogen 19 mg/dL (8-26); Calcium 9.8 mg/dL (8.6-10.8); Carbon Dioxide 28 mEq/L (19-29); Chloride 102 mEq/L (98-109); Glucose 130 mg/dL (70-99); Magnesium 1.9 mg/dL (1.6-2.6); Osmolality,Calculated 292 (280-300); Potassium 4.2 mEq/L (3.5-4.5); Sodium 139 mEq/L (136-145); eGFR For African Americans > 60 (> 60); eGFR For Non-African Americans > 60 (> 60)
[2017-06-14] MEDS: *HR* Heparin 5,000 UNIT/ML VIAL SQ SCH ×2 (06:25→14:44)
[2017-06-14] MEDS: Insulin LISPRO 300 UNITS/3 ML VIAL SQ SCH ×3 (08:00→16:59)
[2017-06-14] MEDS: Loratadine 10 MG TABLET PO SCH (09:14)
[2017-06-14] MEDS: Multivit/Ca/Min/Fe/FA 1 TAB TABLET PO SCH (09:15)
[2017-06-14] MEDS: Ertapenem 1,000 MG in 0.9 % Sodium Chloride Mini Bag 100 ML IVPB SCH (09:15)
[2017-06-14] MEDS: Furosemide 40 MG/4 ML VIAL IVP SCH (09:15)
[2017-06-14] MEDS: Fluticasone Propionate Nasal 50 MCG/SPRAY BOTTLE NS SCH (09:19)
[2017-06-14 10:41] VITALS: BP 136/85
--- NOTE | 2017-06-14 12:33 | Discharge Summary ---
<Li Fiore - Last Filed: 06/14/17 13:28> Date of Encounter: 06/14/17 Time of Encounter: 10:00 - Discharge Diagnosis (1) Sepsis Priority: Primary Status: Acute Comments: This is most likely secondary due to GNR decubitus ulcer infection and GPC bacteremia. Patient has white count of 10.9 and afebrile. Patient will continue Ertapenem outpatient in the short-term nursing facility. Qualifiers: Sepsis type: sepsis due to unspecified organism Qualified Code(s): A41.9 - Sepsis, unspecified organism (2) Decubitus ulcer of left ankle, stage 3 Priority: Primary Status: Chronic Comments: Patient will be discharged to a short-term nursing facility where he will receive care for the ulcers. Patient will receive surgical follow-up for wound care at [facility] 07/01/2017 (3) Decubitus ulcer of left buttock Priority: Primary Status: Chronic Comments: Patient will be discharged to a short-term nursing facility where he will receive care for the ulcers. Patient will receive surgical follow-up for wound care at [facility] 07/01/2017 Qualifiers: Pressure ulcer stage: unstageable Qualified Code(s): L89.320 - Pressure ulcer of left buttock, unstageable (4) Leukocytosis Priority: Secondary Status: Acute Comments: WBC has improved and is 13. Qualifiers: Leukocytosis type: unspecified Qualified Code(s): D72.829 - Elevated white blood cell count, unspecified (5) Diabetes Priority: Secondary Status: Chronic Comments: Glucose has improved and is 130. Treated using the low dose sliding scale . Qualifiers: Diabetes mellitus type: type 2 Diabetes mellitus complication status: with skin complications Diabetes mellitus complication detail: with other skin ulcer Diabetes mellitus [employer] insulin use: unspecified [employer] insulin use status Qualified Code(s): E11.622 - Type 2 diabetes mellitus with other skin ulcer; L98.499 - Non-pressure chronic ulcer of skin of other sites with unspecified severity (6) Acute diastolic heart failure Priority: Secondary Status: Acute Comments: Successful diuresis. Echocardiogram revealed LVEF 60% normal right ventricular function, no significant valvular dysfunction. (7) Spina bifida Priority: Secondary Status: Chronic Qualifiers: Spinal region: lumbosacral Presence of hydrocephalus: unspecified hydrocephalus presence Qualified Code(s): Q05.7 - Lumbar spina bifida without hydrocephalus (8) DVT prophylaxis Priority: Secondary Status: Acute Comments: Given heparin - Discharge Medications Prescriptions: Ertapenem [INVanz] 1,000 mg IVPB DAILY #16 vial Home Medications: Fluticasone Propionate Nasal [Flonase] 50 mcg NS DAILY 11/21/15 [History] Potassium Chloride 60 meq PO BID 11/21/15 [History] Rosuvastatin [Crestor] 20 mg PO HS 11/21/15 [History] Cholecalciferol (Vitamin D3) [Vitamin D3] 5,000 unit PO DAILY 11/12/16 [History] Fluticasone Propionate [Flovent Hfa] 2 puff IH BID 11/12/16 [History] Levothyroxine [Synthroid] 200 mcg PO DAILY 11/12/16 [History] Budesonide [Pulmicort Flexhaler 180mcg] 1 puff IH BID 03/08/17 [History] Lactobacillus Acidophilus/Fos [Acidophilus Probiotic Tablet] 1 cap PO DAILY 06/17 [History] Lansoprazole [Prevacid] 15 mg PO DAILY 03/08/17 [History] Loratadine [Claritin] 10 mg PO DAILY 03/08/17 [History] Multivitamin [One Daily Multivitamin] 1 tab PO DAILY 03/08/17 [History] Enalapril Maleate [Vasotec] 10 mg PO DAILY 03/23/17 [History] Ostomy Adhesive [Coloplast Paste Strip] 1 each MC AD 03/23/17 [History] Saline Nasal [place] [[place] Nasal [place]] 1 spray NS AD 03/23/17 [History] Nystatin Cream [Mycostatin Cream] 1 appl TP BID #1 tube 03/25/17 [Rx] Silvasorb 1 appl TP DAILY #2 tube 04/19/17 [Rx] Collagenase Oint [Santyl] 1 appl TP DAILY 06/14/17 [Rx] Ertapenem [INVanz] 1,000 mg IVPB DAILY #16 vial 06/14/17 [Rx] Insulin LISPRO [HumaLOG] 0 units SQ TIDAC vial 06/14/17 [Rx] Ipratropium/Albuterol Neb [Duoneb] 3 ml IH [id number] inh 06/14/17 [Rx] Allergies/Adverse Reactions: Allergies adhesive Allergy (Verified 06/10/17 11:35) Blister Amoxicillin Allergy (Verified 06/10/17 11:35) Hives Oxaprozin [From Daypro] Adverse Reaction (Verified 06/10/17 11:35) Diarrhea Procedures/tests Complete & Pending: Procedures Performed prior 72 hours Category Date Time Status EV echocardiogram Routine Y 06/11/17 20:59 Completed Date of admission: 06/10/17 14:15 Primary care physician: Maria Elena An Consults: 06/10/17 18:41 Consult to Force Adjustment Supervisor [CONS] Routine Reason for SW Consult: sister unable to care for pt, [place] [employer] 06/12/17 14:29 Consult to Nutrition [CONS] Routine Comment: CHF, weight loss Consulting Provider: NUTRITION Reason for Dietary Consult: Diet Education - Patient Status Disposition: Transfer SNF Condition: Good Functional capacity at discharge: uses cane/walker Overall status at discharge: patient is progressing back to baseline - Discharge Instructions Follow Up With: Maria Elena An MD [Primary Care Provider] - (Patient is going to [facility], no PCP appointment needed) Additional Instructions: Continue daily wound care: Wound care regimen - See orders - Santyl daily to left lateral thigh wounds - Allevyn foam dressing to left buttock tear - Vascular wraps on LE daily Santyl for enzymatic debridement Turn Q 2 hours Pressure reduction mattress Follow-up with [facility] 07/01/2017 at 10:00 am - Diet and Activity Activity: ambulate only with your walker Diet: diabetic diet Interval History: Mr. Leone is pleasant 47-year-old male past medical history of diabetes, hyperlipidemia, hypothyroidism, hypertension, CVA, suspended. He was ED complaining of leg swelling and pain. Patient met sepsis criteria, WBC count of 19.1 of 115, source of infection from decubitus ulcers on his left Botox stage III and left ankle. Patient also complained of dyspnea He was admitted, IV vancomycin and zosyn were administered, wound cultures and blood cultures were sent out. Wound care and surgery were consulted. Chest x-ray low lung volumes with bibasilar atelectasis. He was started on Lasix to help with the edema and his lower extremities bilaterally. Venous duplex revealed normal left lower extremity deep in superficial. Echocardiogram demonstrated a normal left ventricular systolic function LVEF60% , normal right ventricular size and function, no significant valvular dysfunction. Patient was placed on a low dose sliding scale insulin due to glucose of 179. Wound culture grew Proteus ESBL, a culture grew GPC. Sepsis was most likely secondary to GNR decubitus ulcer infection and GPC bacteremia. His antibiotics were changed to Ertapenen. He is to follow up with surgical at the [facility] on 07/01/2017. Patient denies fever, chills, confusion, dizziness, chest pain, shortness of breath, nausea, vomiting, abdominal pain. Patient is happy to go back to the short-term nursing facility and he stated clear understanding of treatment and plan. He is to follow up with PCP as well. Hospital course: Mr. Leone is a 47 year old male - Time Spent with Patient Total time spent providing and/or coordinating discharge services: - Constitutional Vitals: Temp Pulse Resp BP Pulse Ox 98.0 F 96 16 136/85 93 06/14/17 10:37 06/14/17 10:37 06/14/17 11:21 06/14/17 10:37 06/14/17 11:21 General appearance: Present: cooperative, A&O X 3, morbidly obese, pleasant, no acute distress, answers questions appropriately - Head Head exam: Present: atraumatic, normocephalic - Eye Eye exam: Present: PERRL, conjuntiva pink. Absent: scleral icterus - Neck Neck exam general surgery: Absent: supple, trachea midline - Respiratory Respiratory exam: Present: CTAB. Absent: chest wall tenderness, respiratory distress, stridor - Cardiovascular Cardiovascular exam: Present: RRR, +S1, +S2. Absent: rubs - GI/Abdominal GI/Abdominal exam: Present: normal bowel sounds. Absent: distended, guarding, tenderness - Extremities Exam Extremities exam: Present: pedal edema. Absent: mottling - Skin Skin exam: Present: erythema. Absent: mottled - VTE Documentation of Mechanical Device: Graduated compression elastic hosiery <Baldev Shirley - Last Filed: 06/14/17 19:33> Date of Encounter: 06/14/17 - Discharge Diagnosis (1) Sepsis Status: Resolved Qualifiers: Sepsis type: sepsis due to unspecified organism Qualified Code(s): A41.9 - Sepsis, unspecified organism (2) Decubitus ulcer of left ankle, stage 3 Status: Chronic (3) Decubitus ulcer of left buttock Status: Chronic Qualifiers: Pressure ulcer stage: unstageable Qualified Code(s): L89.320 - Pressure ulcer of left buttock, unstageable (4) Spina bifida Status: Chronic Qualifiers: Spinal region: lumbosacral Presence of hydrocephalus: unspecified hydrocephalus presence Qualified Code(s): Q05.7 - Lumbar spina bifida without hydrocephalus (5) Morbid obesity with BMI of 40.0-44.9, adult Priority: Secondary Status: Chronic (6) Hypothyroidism Priority: Secondary Status: Chronic Qualifiers: Hypothyroidism type: acquired Qualified Code(s): E03.9 - Hypothyroidism, unspecified (7) Hyperlipidemia Priority: Secondary Status: Chronic Qualifiers: Hyperlipidemia type: pure hypercholesterolemia Qualified Code(s): E78.00 - Pure hypercholesterolemia, unspecified; E78.0 - Pure hypercholesterolemia (8) Essential hypertension Priority: Secondary Status: Chronic (9) Diabetes Status: Chronic Qualifiers: Diabetes mellitus type: type 2 Diabetes mellitus complication status: with skin complications Diabetes mellitus complication detail: with other skin ulcer Diabetes mellitus [facility]p insulin use: unspecified [employer] insulin use status Qualified Code(s): E11.622 - Type 2 diabetes mellitus with other skin ulcer; L98.499 - Non-pressure chronic ulcer of skin of other sites with unspecified severity (10) History of urostomy Priority: Secondary Status: Chronic Procedures/tests Complete & Pending: Procedures Performed prior 72 hours Category Date Time Status EV echocardiogram Routine Y 06/11/17 20:59 Completed Date of admission: 06/10/17 14:15 Primary care physician: Maria Elena An Consults: 06/10/17 18:41 Consult to Force Adjustment Supervisor [CONS] Routine Reason for SW Consult: sister unable to care for pt, has [employer]. 06/12/17 14:29 Consult to Nutrition [CONS] Routine Comment: CHF, weight loss Consulting Provider: NUTRITION Reason for Dietary Consult: Diet Education Hospital course: Mr. Leone is a 47 year old male - Time Spent with Patient Total time spent providing and/or coordinating discharge services: - Constitutional Vitals: Temp Pulse Resp BP Pulse Ox 98.0 F 96 16 136/85 93 06/14/17 10:37 06/14/17 10:37 06/14/17 11:21 06/14/17 10:37 07/14/17 11:21 - Attending Attestation I examined this patient and my medical decision-making was reviewed with the Resident Physician on 06/14/17. I agree with the documented findings, disposition and treatment plan as described except to the extent set forth below. Mr. Leone has been hospitalized for infected decubitus ulcer - present on admission. He is doing somewhat better and tolerating IV abx. He is afebrile and vitals are stable. At this time he is to be discharged to SNF. Exam Alert. Comfortable Mucus membranes dry Heart reg No wheeze Abd soft Dressing intact Plan D/C to SNF 3 weeks IV abx Wound care at facility.
[2017-06-14] MEDS: Nystatin Cream 15 GM TUBE TP SCH (14:45)
[2017-06-14] MEDS: Silvasorb 44.4 ML TUBE TP SCH (14:58)
[2017-06-14] MEDS ORDERED: Nystatin POWDER 30 GM BOTTLE TP SCH (15:00)
--- NOTE | 2017-06-14 15:17 | Physician Discharge Referral ---
ExtendedCare Referral Info Transfer To: snf - Diagnosis (1) Sepsis Status: Acute (2) Decubitus ulcer of left ankle, stage 3 Status: Chronic (3) Decubitus ulcer of left buttock Status: Chronic (4) Leukocytosis Status: Acute (5) Diabetes Status: Chronic (6) Acute diastolic heart failure Status: Acute (7) Spina bifida Status: Chronic (8) DVT prophylaxis Status: Acute - Transfer Medications Home Medications: Fluticasone Propionate Nasal [Flonase] 50 mcg NS DAILY 11/21/15 [History] Potassium Chloride 60 meq PO BID 11/21/15 [History] Rosuvastatin [Crestor] 20 mg PO HS 11/21/15 [History] Cholecalciferol (Vitamin D3) [Vitamin D3] 5,000 unit PO DAILY 11/12/16 [History] Fluticasone Propionate [Flovent Hfa] 2 puff IH BID 11/12/16 [History] Levothyroxine [Synthroid] 200 mcg PO DAILY 11/12/16 [History] Budesonide [Pulmicort Flexhaler 180mcg] 1 puff IH BID 03/08/17 [History] Lactobacillus Acidophilus/Fos [Acidophilus Probiotic Tablet] 1 cap PO DAILY 06/17 [History] Lansoprazole [Prevacid] 15 mg PO DAILY 03/08/17 [History] Loratadine [Claritin] 10 mg PO DAILY 03/08/17 [History] Multivitamin [One Daily Multivitamin] 1 tab PO DAILY 03/08/17 [History] Enalapril Maleate [Vasotec] 10 mg PO DAILY 03/23/17 [History] Ostomy Adhesive [Coloplast Paste Strip] 1 each MC AD 03/23/17 [History] Saline Nasal [place] [[place] Nasal [place]] 1 spray NS AD 03/23/17 [History] Nystatin Cream [Mycostatin Cream] 1 appl TP BID #1 tube 03/25/17 [Rx] Silvasorb 1 appl TP DAILY #2 tube 04/19/17 [Rx] Collagenase Oint [Santyl] 1 appl TP DAILY 06/14/17 [Rx] Insulin LISPRO [HumaLOG] 0 units SQ TIDAC vial 06/14/17 [Rx] Ipratropium/Albuterol Neb [Duoneb] 3 ml IH [id number] inh 06/14/17 [Rx] Allergies/Adverse Reactions: Allergies adhesive Allergy (Verified 06/10/17 11:35) Blister Amoxicillin Allergy (Verified 06/10/17 11:35) Hives Oxaprozin [From Daypro] Adverse Reaction (Verified 06/10/17 11:35) Diarrhea - Respiratory Orders None Smoking Cessation: Smoking cessation has been advised. For more information, call the [place] Tobacco Quit Line at 8-674-SRZY-NOW. - Advance Directives Code Status: Full Code - Mobility Orders Ambulate - Diet Orders No Concentrated Sweets (diabetic) CERTIFICATION: I certify that the transfer of the above named patient to an Extended Care Facility is necessary for the continuing treatment of the diagnosis listed. The above information is true and accurate reflection of patient's current condition. Confidential - Redisclosure prohibited without a patient's written consent.
== END 2017-06-14 17:34 | DRG 853 ==
LOC: 3BNU 07:36 → EMEROO 07:36 → 3BNU 11:40 → SUATTDRO 14:15 → 2NNU 06-11 04:51 → 3ANU 06-13 12:07
PROVIDERS: ADMIT Nurse Practitioner Family; ATTEND Internal Medicine

== ENCOUNTER 2017-08-24 19:11 | Inpatient (IN) ==
--- NOTE | 2017-08-24 20:16 | Emergency Department Note ---
Disposition Clinical Impression: Cellulitis Qualifiers: Site of cellulitis: extremity Site of cellulitis of extremity: lower extremity Laterality: unspecified laterality Qualified Code(s): L03.119 - Cellulitis of unspecified part of limb Decubitus ulcer, stage III Qualifiers: Pressure ulcer location: thigh Laterality: left Qualified Code(s): L89.223 - Pressure ulcer of left hip, stage 3 Disposition: Admitted As Inpatient Condition: Fair Referrals: Jaun Price MD [Non-Partnered Physician] - Forms: ED Satisfaction Letter Extremity Problem HPI - General Chief complaint: ED Extremity Problem,Nontraumatic Stated complaint: christina swollen legs Time Seen by Provider: 08/24/17 19:55 Source: patient Mode of arrival: private vehicle Limitations: no limitations Nursing Notes Reviewed: Yes Vital Signs Reviewed: Yes - History of Present Illness HPI Narrative: 47-year-old male with history of CHF, borderline diabetes who presents to the ER due to lower extremity swelling and redness. Patient states he has had worsening swelling in his legs for roughly the past week. He saw his primary care provider a week ago he says was concerned about it. He states it started to be red and he has had spots bust open on his left leg. Denies fevers at home but has been nauseous. No vomiting but has had some diarrhea. Reports chest pain and has a history of congestive heart failure. Has been admitted before for his legs. No other complaints. Pt Subjective Complaint: extremity pain, extremity swelling Onset (ago): day(s) Consistency: constant Injury Location: left, right, lower extremity Pain Scale: 2 Quality: burning Radiation: none Improves with: nothing Worsens with: nothing Associated symptoms: Reports: shortness of breath, rash, swelling. Denies: chest pain, abdominal pain, fever - Related Data Home Medications Medication Instructions Recorded Confirmed Fluticasone Propionate Nasal 50 mcg NS DAILY 11/21/15 08/19/17 [Flonase] Potassium Chloride 60 meq PO BID 11/21/15 08/19/17 Rosuvastatin [Crestor] 20 mg PO HS 11/21/15 08/19/17 Cholecalciferol (Vitamin D3) 5,000 unit PO DAILY 11/12/16 08/19/17 [Vitamin D3] Fluticasone Propionate [Flovent 2 puff IH BID 11/12/16 08/19/17 Hfa] Levothyroxine [Synthroid] 200 mcg PO DAILY 11/12/16 08/19/17 Budesonide [Pulmicort Flexhaler 1 puff IH BID 03/08/17 08/19/17 180mcg] Lactobacillus Acidophilus/Fos 1 cap PO DAILY 03/08/17 08/19/17 [Acidophilus Probiotic Tablet] Lansoprazole [Prevacid] 15 mg PO DAILY 03/08/17 08/19/17 Loratadine [Claritin] 10 mg PO DAILY 03/08/17 08/19/17 Multivitamin [One Daily 1 tab PO DAILY 03/08/17 08/19/17 Multivitamin] Enalapril Maleate [Vasotec] 10 mg PO DAILY 03/23/17 08/19/17 Ostomy Adhesive [Coloplast Paste 1 each MC AD 03/23/17 08/19/17 Strip] Saline Nasal [place] [[place] Nasal 1 spray NS AD 03/23/17 08/19/17 [place]] Previous Rx's Medication Instructions Recorded Ertapenem [INVanz] 1,000 mg IVPB DAILY #16 vial 06/14/17 Ipratropium/Albuterol Neb [Duoneb] 3 ml IH [id number] inh 06/14/17 Allergies Allergy/AdvReac Type Severity Reaction Status Date / Time adhesive Allergy Blister Verified 08/24/17 19:24 Amoxicillin Allergy Hives Verified 08/24/17 19:24 Oxaprozin [From Daypro] AdvReac Diarrhea Verified 08/24/17 19:24 All systems ED: reviewed and negative except as stated. Constitutional: Denies: fever Cardiovascular: Denies: chest pain Respiratory: Reports: dyspnea Gastrointestinal: Reports: nausea, diarrhea. Denies: abdominal pain, vomiting Integumentary: Reports: lesions Past Medical History - Past Medical History Attestation: Yes The following information was validated with the patient. Source: patient Medical history: Reports: asthma, CHF, CVA, hyperlipidemia, hypertension, thyroid disease Surgical history: Reports: appendectomy, orthopedic, other, vasectomy, other Psychiatric history: Reports: depression - Social History Smoking Status: Never smoker Smokeless Tobacco Status: No Alcohol use: Reports: none Drug use: Reports: none Physical Exam - General Limitations: no limitations General appearance: alert, in no apparent distress - Head Head exam: atraumatic, normocephalic, normal inspection - Eye Eye exam: Present: normal appearance, EOMI - ENT ENT exam: normal exam - Neck Neck exam: Present: normal inspection, full ROM - Chest Chest inspection: Present: normal inspection, symmetric chest wall rise - Respiratory Respiratory exam: Present: normal lung sounds bilaterally - Cardiovascular Cardiovascular exam: Present: normal rhythm, tachycardia, normal heart sounds - Abdominal Exam Abdominal exam: Present: soft, Non-Tender. Absent: tenderness, distention, rigidity - Extremities Exam Extremities exam: Present: normal inspection, full ROM - Expanded Upper Extremity Exam Shoulder exam: Present: normal inspection, full ROM Arm exam: Present: normal inspection, full ROM Elbow exam: Present: normal inspection, full ROM Forearm/Wrist exam: Present: normal inspection, full ROM Hand exam: Present: normal inspection, full ROM Vascular exam: Normal: radial pulse - Expanded Lower Extremity Exam Hip/Pelvis exam: Present: normal inspection, full ROM Upper leg exam: Present: normal inspection, full ROM Knee exam: Present: normal inspection, full ROM Lower leg exam: Present: normal inspection, full ROM, swelling (There is nonpitting edema to the bilateral lower extremities with overlying prior surgical incision sites.), other (There is multiple superficial ulcerations of the left lateral distal leg with an open sore approximately 2 x 2 centimeters.) Ankle exam: Present: normal inspection, full ROM, swelling, erythema (There is bilateral erythema to the lower legs from the knee distal.) Foot/toe exam: Present: normal inspection, full ROM, swelling Neurovascular/Tendon exam: Absent: motor deficit, sensory deficit - Neurological Exam Neurological exam: Present: alert, other (GCS 15. Nonfocal neurologic exam.) - Psychiatric Psychiatric exam: Present: normal affect, normal mood Course Course Narrative: Patient seen and examined. Wound culture obtained from site. We will obtain labs including CBC as well as troponin and BNP given his shortness of breath. - Reevaluation(s) Reevaluation #1: I discussed results of lab work with the patient and family. He is in agreement with being admitted to the hospital for IV antibiotics and wound evaluation. Vital Signs Temperature 98.2 F 08/24/17 19:25 Pulse Rate 120 08/24/17 19:25 Respiratory Rate 18 08/24/17 19:25 Blood Pressure 109/75 08/24/17 19:25 O2 Sat by Pulse Oximetry 96 08/24/17 19:25 Temperature 98.2 F 08/24/17 19:25 Pulse Rate 103 08/24/17 21:28 Respiratory Rate 18 08/24/17 21:28 Blood Pressure 122/74 08/24/17 21:28 O2 Sat by Pulse Oximetry 95 08/24/17 21:28 Oxygen Delivery Oxygen Delivery Room Air Extremity Problem, Nontraumati - MDM Narrative Medical decision making narrative: 47-year-old male presents to the ER due to lower show any swelling and erythema. History of prior ulcers and cellulitis requiring debridement. He is afebrile here. He does have erythema to the lower extremities as well as open lesions to the left thigh. White count of 16,000. BNP and troponin normal. Given a dose of vancomycin here. Hospitalist accepted for admission. Requested a urinalysis as well as to add Zosyn. - Lab Data Lab results reviewed: Yes I reviewed the patient's lab results. Result diagrams: 08/24/17 20:35 08/24/17 20:35 Lab Results 08/24/17 08/24/17 08/24/17 Range/Units 20:35 20:35 20:35 WBC 16.0 H (4.3-11.1) K/mcL RBC 4.56 (4.19-5.50) M/mcL Hgb 11.6 L (12.9-16.9) g/dL Hct 37.1 L (37.5-50.1) % MCV 81.4 L (83.0-100.0) fL MCH 25.4 L (28.0-33.3) pg MCHC 31.3 L (31.6-35.5) g/dL RDW 16.3 H (11.5-14.5) % Plt Count 379 (140-400) K/mcL MPV 10.4 (9.4-12.4) fL Immature Gran % 0.4 (0-4) % Seg Neutrophils % 76.1 % Lymphocytes % 12.2 % Monocytes % 7.1 % Eosinophils % 3.6 % Basophils % 0.6 % Neutrophils # 12.2 H (1.6-8.9) K/mcL Lymphocytes # 2.0 (0.6-4.6) K/mcL Monocytes # 1.1 (0.0-1.3) K/mcL Eosinophils # 0.6 (0.0-0.6) K/mcL Basophils # 0.1 (0.0-0.2) K/mcL Sodium 139 (136-145) mEq/L Potassium 3.5 (3.5-4.5) mEq/L Chloride 107 (98-109) mEq/L Carbon Dioxide 19 (19-29) mEq/L BUN 11 (8-26) mg/dL Creatinine 0.98 (0.72-1.25) mg/dL Est GFR ( Amer) > 60 (> 60) Est GFR (Non-Af Amer) > 60 (> 60) BUN/Creatinine Ratio 11 (6-26) Glucose 124 H (70-99) mg/dL Calculated Osmolality 289 (280-300) Calcium 8.7 (8.6-10.8) mg/dL Troponin I 0.00 (0-0.03) ng/mL B-Natriuretic Peptide (0-100) pg/mL 08/24/17 Range/Units 20:35 WBC (4.3-11.1) K/mcL RBC (4.19-5.50) M/mcL Hgb (12.9-16.9) g/dL Hct (37.5-50.1) % MCV (83.0-100.0) fL MCH (28.0-33.3) pg MCHC (31.6-35.5) g/dL RDW (11.5-14.5) % Plt Count (140-400) K/mcL MPV (9.4-12.4) fL Immature Gran % (0-4) % Seg Neutrophils % % Lymphocytes % % Monocytes % % Eosinophils % % Basophils % % Neutrophils # (1.6-8.9) K/mcL Lymphocytes # (0.6-4.6) K/mcL Monocytes # (0.0-1.3) K/mcL Eosinophils # (0.0-0.6) K/mcL Basophils # (0.0-0.2) K/mcL Sodium (136-145) mEq/L Potassium (3.5-4.5) mEq/L Chloride (98-109) mEq/L Carbon Dioxide (19-29) mEq/L BUN (8-26) mg/dL Creatinine (0.72-1.25) mg/dL Est GFR ( Amer) (> 60) Est GFR (Non-Af Amer) (> 60) BUN/Creatinine Ratio (6-26) Glucose (70-99) mg/dL Calculated Osmolality (280-300) Calcium (8.6-10.8) mg/dL Troponin I (0-0.03) ng/mL B-Natriuretic Peptide < 10 (0-100) pg/mL - EKG Data EKG attestation: Yes I reviewed and interpreted this EKG. EKG results narrative: EKG demonstrates sinus tachycardia with a rate of 120. Normal axis. Normal intervals. Normal R-wave progression. No gross ST elevations or depressions. No acute ischemic findings. [facility] Situation: Demographics, MOA Background: Presenting Complaint, Relevant PMH, Meds, & Allergies Assessment: Vital Signs, Course and respsone to treatment, Exam Concerns, Patient/Family Expectation, Pertinant Lab Results Recommendation: Barrier(s) to disposition, Recommendation based on pending studies, treatments, or consults STa Report Given to: Dr. Herminia Gandhi Repor Time: 22:11 (Requests UA and Zosyn ) Attestation Statement - Attestation Attestation: I examined this patient and my medical decision-making was reviewed with the Resident Physician. I agree with the documented findings, disposition and treatment plan as described except to the extent set forth below. Patient to the emergency department complaining of leg swelling. Increasing over the past couple of weeks after getting out of the snf. States he has a wound on the back of his left leg with foul odor to it. On exam he is laying in bed in no distress. He is obese. He has a moderate amount of pitting edema into his thigh. Ulcerated wounds to the back of the left thigh. Plan. Culture sent. Cardiac workup. Likely admission.
[2017-08-24 20:43] LABS: Basophils # 0.1 K/mcL (0.0-0.2); Basophils % 0.6 %; Eosinophils # 0.6 K/mcL (0.0-0.6); Eosinophils % 3.6 %; Hematocrit 37.1 % (37.5-50.1); Hemoglobin 11.6 g/dL (12.9-16.9); Immature Granulocytes % 0.4 % (0-4); Lymphocytes % 12.2 %; Mean Corpuscular HGB Conc 31.3 g/dL (31.6-35.5); Mean Corpuscular Hemoglobin 25.4 pg (28.0-33.3); Mean Corpuscular Volume 81.4 fL (83.0-100.0); Mean Platelet Volume 10.4 fL (9.4-12.4); Monocytes # 1.1 K/mcL (0.0-1.3); Monocytes % 7.1 %; Neutrophils # 12.2 K/mcL (1.6-8.9); Platelet Count 379 K/mcL (140-400); Red Blood Count 4.56 M/mcL (4.19-5.50); Red Cell Distribution Width 16.3 % (11.5-14.5); Segmented Neutrophils % 76.1 %
[2017-08-24 20:56] LABS: BUN/Creatinine Ratio 11 (6-26); Blood Urea Nitrogen 11 mg/dL (8-26); Calcium 8.7 mg/dL (8.6-10.8); Carbon Dioxide 19 mEq/L (19-29); Chloride 107 mEq/L (98-109); Glucose 124 mg/dL (70-99); Osmolality,Calculated 289 (280-300); Potassium 3.5 mEq/L (3.5-4.5); Sodium 139 mEq/L (136-145); eGFR For African Americans > 60 (> 60); eGFR For Non-African Americans > 60 (> 60)
[2017-08-24] MEDS ORDERED: Vancomycin 2,000 MG in D5% in Water 500 ML IVPB ONE (21:08)
[2017-08-24] MEDS ORDERED: Piperacillin/Tazobactam 3.375 GM in D5% in Water (Mini-Bag+) 100 ML IVPB ONE (22:10)
[2017-08-24 22:19] LABS: Bilirubin,Urine Negative (Negative); Blood,Urine Large (Negative); Clarity,Urine Turbid (Clear); Color,Urine Yellow (Yellow); Glucose,Urine (UA) Normal (Normal); Ketones,Urine Negative (Negative); Leukocyte Esterase,Urine Large (Negative); Nitrite,Urine Positive (Negative); Protein,Urine 100 mg/dL (Neg-Trace); Specific Gravity,Urine 1.018 (1.010-1.025); Urobilinogen,Urine Normal (Normal)
[2017-08-24 22:21] LABS: Bacteria,Urine Many per hpf (None-Few); RBC,Urine 50-100 per hpf (0-3); Squamous Epithelial Cell,Urine Many per lpf (None-Few); WBC,Urine TNTC per hpf (0-3)
[2017-08-24] MEDS ORDERED: Ondansetron 4 MG/2 ML VIAL IVP PRN (23:48)
[2017-08-24] MEDS ORDERED: Naloxone 0.4 MG/ML INJ IVP PRN (23:48)
[2017-08-25] MEDS ORDERED: *HR* Morphine 2 MG/ML SYRINGE IVP PRN (00:21)
[2017-08-25] MEDS ORDERED: *HR* HYDROcodone/Acet 5/325 mg TABLET PO PRN (00:21)
[2017-08-25] MEDS ORDERED: Saline Nasal Spray 44 ML BOTTLE NS PRN (00:30)
[2017-08-25] MEDS ORDERED: [UNRECOGNIZED DRUG - OTHER] MC SCH (00:30)
--- NOTE | 2017-08-25 00:53 | Internal Med History&Physical ---
Date of Encounter: 08/25/17 Time of Encounter: 12:05 Assessment and Plan (1) Cellulitis of left lower extremity Current visit: No Status: Acute Prior wound cultures positive of Proteus mirablis ESBL, sensitive to Zosyn will empirically start Vancomycin and Zosyn f/u repeat wound cultures pain control started Lasix 40mg IV BID wound care consult consider ID consult depending on culture results for duration of therapy (2) UTI (urinary tract infection) Current visit: No Status: Acute f/u urine cultures continue IV abx Qualifiers: Urinary tract infection type: site unspecified Hematuria presence: without hematuria Qualified Code(s): N39.0 - Urinary tract infection, site not specified (3) Essential hypertension Current visit: No Status: Chronic BP within acceptable range Continue home medications (4) Hyperlipidemia Current visit: No Status: Chronic Continue home medications Qualifiers: Hyperlipidemia type: pure hypercholesterolemia Qualified Code(s): E78.00 - Pure hypercholesterolemia, unspecified; E78.0 - Pure hypercholesterolemia (5) History of urostomy Current visit: No Status: Chronic Continue urostomy care (6) DVT prophylaxis Current visit: No Status: Acute Heparin subcutaneous (7) Lower extremity edema Current visit: No Status: Chronic Likely secondary to chronic venous stasis Started Lasix IV twice a day Bilateral lower extremity elevation recommended (8) Decubitus ulcer, stage III Current visit: Yes Status: Chronic Continue wound care Qualifiers: Pressure ulcer location: lower back Laterality: left Qualified Code(s): L89.143 - Pressure ulcer of left lower back, stage 3 (9) Morbid obesity with BMI of 45.0-49.9, adult Current visit: Yes Status: Chronic (10) Spina bifida Current visit: No Status: Chronic Qualifiers: Spinal region: lumbosacral Presence of hydrocephalus: unspecified hydrocephalus presence Qualified Code(s): Q05.7 - Lumbar spina bifida without hydrocephalus Internal Medicine - H&P: HPI Chief complaint: left lower extremity pain Admitted From: Home Plans for Post Hospital Care: Home History of present illness: Mr. Leone is a 47 year old male with extensive PMH including spina bifida, status post urostomy, diabetes, hyperlipidemia, chronic venous stasis, hypothyroidism, hypertension, admitted for left lower extremity pain. Patient is noted to have left lower extremity ulcers for which he follows up with wound care. He states the wound has been opening and draining purulent discharge and has worsened over the past few days, and due to the worsening pain he came to the ER. He also reports of not taking his Lasix at home because his current urostomy bag does not support the volume. At this time he is resting in bed and reports of pain in left lower extremity, is noted to have multiple ulcers throughout the left leg, which are draining purulent discharge. He denies any shortness of breath, chest pain, abdominal pain, nausea, vomiting, fever, or chills. Code status: Full code Past Med Surg Social Fam HX - Past Medical History Medical history: asthma, CHF, CVA, hyperlipidemia, hypertension, thyroid disease Psychiatric history: depression - Past Surgical History Surgical History: appendectomy, orthopedic, other, vasectomy, other - Social History Smoking Status: Never smoker Smokeless Tobacco Status: No Alcohol use: none Drug use: none - Family History Mother Family Member Ethnicity: Non- Living Status: Still Living Hx Family Cardiac Disorders: Yes (HTN) Hx Family Endocrine Disorder: Yes (DM) Hx Family Neurologic Disorders: Yes (Dementia) Sister Family Member Ethnicity: Non- Living Status: Still Living Hx Family Cardiac Disorders: Yes (HTN) Hx Family Endocrine Disorder: Yes (DM, thyroid) Brother History Unknown: Yes Family Member Ethnicity: Non- Living Status: Still Living Hx Family Cardiac Disorders: Yes (HTN) Father Family Member Ethnicity: Non- Living Status: Hx Family Cardiac Disorders: Yes (CHF, HTN) Hx Family Respiratory Disorders: Yes (Asthma, emphysema) Hx Family Cancer: Yes (Lung) Hx Family GI Disorders: No Hx Family Endocrine Disorder: Yes Hx Family Neuromuscular Disorders: No Hx Family Neurologic Disorders: No Hx Family HEENT Disorders: No Hx Family Autoimmune Disorders: No Internal Medicine - H&P: Meds Fluticasone Propionate Nasal [Flonase] 50 mcg NS DAILY 11/21/15 [History] Potassium Chloride 60 meq PO BID 11/21/15 [History] Rosuvastatin [Crestor] 20 mg PO HS 11/21/15 [History] Cholecalciferol (Vitamin D3) [Vitamin D3] 5,000 unit PO DAILY 11/12/16 [History] Fluticasone Propionate [Flovent Hfa] 2 puff IH BID 11/12/16 [History] Levothyroxine [Synthroid] 200 mcg PO DAILY 11/12/16 [History] Budesonide [Pulmicort Flexhaler 180mcg] 1 puff IH BID 03/08/17 [History] Lactobacillus Acidophilus/Fos [Acidophilus Probiotic Tablet] 1 cap PO DAILY 06/17 [History] Lansoprazole [Prevacid] 15 mg PO DAILY 03/08/17 [History] Loratadine [Claritin] 10 mg PO DAILY 03/08/17 [History] Multivitamin [One Daily Multivitamin] 1 tab PO DAILY 03/08/17 [History] Enalapril Maleate [Vasotec] 10 mg PO DAILY 03/23/17 [History] Ostomy Adhesive [Coloplast Paste Strip] 1 each MC AD 03/23/17 [History] Saline Nasal [place] [[place] Nasal [place]] 1 spray NS AD 03/23/17 [History] Ertapenem [INVanz] 1,000 mg IVPB DAILY #16 vial 06/14/17 [Rx] Ipratropium/Albuterol Neb [Duoneb] 3 ml IH [id number] inh 06/14/17 [Rx] 3 Allergy/AdvReac Type Severity Reaction Status Date / Time adhesive Allergy Blister Verified 08/24/17 19:24 Amoxicillin Allergy Hives Verified 08/24/17 19:24 Oxaprozin [From Daypro] AdvReac Diarrhea Verified 08/24/17 19:24 All Systems PM: A 10-system review of systems was performed and is negative for pertinent findings except as documented above in the HPI. - Constitutional Constitutional: as per HPI - Constitutional Vitals: Temp Pulse Resp BP Pulse Ox 98.0 F 98 16 104/61 99 08/24/17 23:49 08/24/17 23:49 08/24/17 23:49 08/24/17 23:49 08/24/17 23:49 General appearance: Present: cooperative, A&O X 3, morbidly obese, no acute distress, answers questions appropriately - Head Head exam: Present: atraumatic, normocephalic - Eye Eye exam: Present: conjuntiva pink, sclera anicteric - Respiratory Respiratory exam: Absent: respiratory distress, wheezes - Cardiovascular Cardiovascular exam: Present: RRR, +S1, +S2. Absent: diastolic murmur, gallop, rubs, systolic murmur - GI/Abdominal GI/Abdominal exam: Present: distended (obese, urostomy bag intact), normal bowel sounds, soft. Absent: tenderness - Extremities Exam Extremities exam: Present: warm, radial pulses palpable and symmetrical (b/l LE chronic venous stasis, LLE erythema, multiple ulcers throughout the leg- draining purulent discharge) - Back Exam Additional comments: stage 3 sacral decubitus - Neurological Exam Neurological exam: Present: alert, oriented X3 - Psychiatric Psychiatric exam: Present: normal affect, normal mood Internal Med - H&P Results - Labs CBC & Chem 7: 08/24/17 20:35 08/24/17 20:35
[2017-08-25] MEDS: Furosemide 40 MG/4 ML VIAL IVP SCH ×3 (01:08→17:40)
[2017-08-25] MEDS: Ipratropium/Albuterol Neb 3 ML IH SCH ×6 (03:36→23:37)
[2017-08-25 04:02] LABS: Basophils # 0.1 K/mcL (0.0-0.2); Basophils % 0.6 %; Eosinophils # 0.7 K/mcL (0.0-0.6); Eosinophils % 5.1 %; Hematocrit 35.2 % (37.5-50.1); Hemoglobin 10.9 g/dL (12.9-16.9); Immature Granulocytes % 0.7 % (0-4); Lymphocytes % 15.9 %; Mean Corpuscular Hemoglobin 25.1 pg (28.0-33.3); Mean Corpuscular Volume 80.9 fL (83.0-100.0); Mean Platelet Volume 10.7 fL (9.4-12.4); Monocytes % 7.5 %; Neutrophils # 8.9 K/mcL (1.6-8.9); Platelet Count 371 K/mcL (140-400); Red Blood Count 4.35 M/mcL (4.19-5.50); Red Cell Distribution Width 16.2 % (11.5-14.5); Segmented Neutrophils % 70.2 %
[2017-08-25 04:16] LABS: BUN/Creatinine Ratio 11 (6-26); Blood Urea Nitrogen 10 mg/dL (8-26); Calcium 8.3 mg/dL (8.6-10.8); Carbon Dioxide 21 mEq/L (19-29); Chloride 104 mEq/L (98-109); Glucose 155 mg/dL (70-99); Osmolality,Calculated 286 (280-300); Phosphorous 2.6 mg/dL (2.3-4.7); Potassium 3.1 mEq/L (3.5-4.5); Sodium 137 mEq/L (136-145); eGFR For African Americans > 60 (> 60); eGFR For Non-African Americans > 60 (> 60)
[2017-08-25] MEDS ORDERED: Vancomycin 1,000 MG in D5% in Water 250 ML IVPB SCH (06:00)
[2017-08-25] MEDS: *HR* Heparin 5,000 UNIT/ML VIAL SQ SCH ×2 (06:03→18:15)
[2017-08-25] MEDS: Beclomethasone 80mcg MDI IH SCH ×2 (07:58→20:07)
[2017-08-25] MEDS: Loratadine 10 MG TABLET PO SCH (08:32)
[2017-08-25] MEDS: Lactobacillus 1 EACH CAP.SPRINK PO SCH (08:32)
[2017-08-25] MEDS: Cholecalciferol (D-3) 1,000 UNIT TABLET PO SCH (08:32)
[2017-08-25] MEDS: Fluticasone Propionate Nasal 50 MCG/SPRAY BOTTLE NS SCH (08:34)
[2017-08-25] MEDS ORDERED: BUDESONIDE IH SCH (09:00)
[2017-08-25] MEDS ORDERED: Vancomycin 2,000 MG in D5% in Water 500 ML IVPB SCH (10:00)
[2017-08-25] MEDS ORDERED: Magnesium Sulfate 2 GM in D5% in Water 100 ML IVPB ONE (12:44)
[2017-08-25] MEDS ORDERED: Potassium Chloride Elixir 20 MEQ/15 ML UDC PO ONE (12:44)
[2017-08-25] MEDS: Ertapenem 1,000 MG in 0.9 % Sodium Chloride Mini Bag 100 ML IVPB SCH (14:35)
[2017-08-25] MEDS: Vancomycin 1,500 MG in D5% in Water 250 ML IVPB SCH (17:55)
[2017-08-26] MEDS: Ipratropium/Albuterol Neb 3 ML IH SCH ×5 (04:07→20:46)
[2017-08-26 04:47] LABS: Basophils # 0.1 K/mcL (0.0-0.2); Basophils % 0.5 %; Eosinophils # 0.5 K/mcL (0.0-0.6); Eosinophils % 4.7 %; Hematocrit 34.2 % (37.5-50.1); Hemoglobin 10.4 g/dL (12.9-16.9); Immature Granulocytes % 0.3 % (0-4); Lymphocytes # 1.6 K/mcL (0.6-4.6); Lymphocytes % 14.9 %; Mean Corpuscular HGB Conc 30.4 g/dL (31.6-35.5); Mean Corpuscular Hemoglobin 25.1 pg (28.0-33.3); Mean Corpuscular Volume 82.4 fL (83.0-100.0); Mean Platelet Volume 10.9 fL (9.4-12.4); Monocytes # 0.8 K/mcL (0.0-1.3); Neutrophils # 7.4 K/mcL (1.6-8.9); Platelet Count 330 K/mcL (140-400); Red Blood Count 4.15 M/mcL (4.19-5.50); Red Cell Distribution Width 16.6 % (11.5-14.5); Segmented Neutrophils % 71.6 %
[2017-08-26 05:06] LABS: BUN/Creatinine Ratio 12 (6-26); Blood Urea Nitrogen 13 mg/dL (8-26); Calcium 8.5 mg/dL (8.6-10.8); Carbon Dioxide 25 mEq/L (19-29); Chloride 102 mEq/L (98-109); Glucose 148 mg/dL (70-99); Magnesium 1.4 mg/dL (1.6-2.6); Osmolality,Calculated 287 (280-300); Potassium 3.6 mEq/L (3.5-4.5); Sodium 137 mEq/L (136-145); eGFR For African Americans > 60 (> 60); eGFR For Non-African Americans > 60 (> 60)
[2017-08-26] MEDS: *HR* Heparin 5,000 UNIT/ML VIAL SQ SCH ×2 (06:35→17:20)
[2017-08-26] MEDS: Beclomethasone 80mcg MDI IH SCH ×2 (08:23→20:46)
--- NOTE | 2017-08-26 08:47 | Electrocardiograph Report ---
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
[2017-08-26] MEDS: Cholecalciferol (D-3) 1,000 UNIT TABLET PO SCH (10:20)
[2017-08-26] MEDS: Lactobacillus 1 EACH CAP.SPRINK PO SCH (10:20)
[2017-08-26] MEDS: Loratadine 10 MG TABLET PO SCH (10:21)
[2017-08-26] MEDS: Fluticasone Propionate Nasal 50 MCG/SPRAY BOTTLE NS SCH (10:23)
[2017-08-26] MEDS: Ertapenem 1,000 MG in 0.9 % Sodium Chloride Mini Bag 100 ML IVPB SCH (11:33)
[2017-08-26] MEDS: Furosemide 40 MG/4 ML VIAL IVP SCH ×2 (11:34→17:20)
[2017-08-26] MEDS: Vancomycin 1,500 MG in D5% in Water 250 ML IVPB SCH ×2 (11:34→23:44)
[2017-08-26] MEDS ORDERED: Magnesium Sulfate 2 GM in D5% in Water 100 ML IVPB ONE (12:46)
--- NOTE | 2017-08-26 13:39 | Internal Med Progress Note ---
Date of Encounter: 08/26/17 Time of Encounter: 13:37 - Assessment and plan (1) Cellulitis of left lower extremity Current Visit: Yes Status: Acute Assessment and plan: Improving. Continue IV Vancomycin and Ertapenem. F/up blood and wound cultures; h/o- previous ESBL infections. Preliminary wound culture grows Proteus; f/up ID consult. Lower extremity elevation. (2) UTI (urinary tract infection) Current Visit: Yes Status: Acute Assessment and plan: UA abnormal but Urine culture preliminary grows Proteus and GNR; however it is unclear if this is true infection ans the sample is from Urostomy bag; continue IV Ertapenem for now and f/up final culture results. Qualifiers: Urinary tract infection type: site unspecified Hematuria presence: without hematuria Qualified Code(s): N39.0 - Urinary tract infection, site not specified (3) Spina bifida Current Visit: Yes Status: Chronic Assessment and plan: Bedbound; noted to have multiple decubitus ulcers on left thigh and leg due to wheelchair; poor hygiene; wound care consulted; Qualifiers: Spinal region: lumbosacral Presence of hydrocephalus: unspecified hydrocephalus presence Qualified Code(s): Q05.7 - Lumbar spina bifida without hydrocephalus (4) Essential hypertension Current Visit: Yes Status: Chronic (5) Hyperlipidemia Current Visit: Yes Status: Chronic Qualifiers: Hyperlipidemia type: unspecified Qualified Code(s): E78.5 - Hyperlipidemia , unspecified (6) Hypothyroidism Current Visit: Yes Status: Chronic Qualifiers: Hypothyroidism type: unspecified Qualified Code(s): E03.9 - Hypothyroidism , unspecified (7) History of urostomy Current Visit: Yes Status: Chronic (8) Morbid obesity with BMI of 40.0-44.9, adult Current Visit: Yes Status: Chronic (9) GERD (gastroesophageal reflux disease) Current Visit: Yes Status: Chronic Qualifiers: Esophagitis presence: esophagitis presence not specified Qualified Code(s) : K21.9 - Gastro-esophageal reflux disease without esophagitis - Subjective Interval history: Feels well; tolerates diet, improving left leg pain and swelling; no nausea, vomiting; - Constitutional Vitals: Temp Pulse Resp BP Pulse Ox 97.9 F 109 14 97/60 98 08/26/17 12:22 08/26/17 12:22 08/26/17 12:22 08/26/17 12:22 08/26/17 12:22 General appearance: Present: cooperative, A&O X 3, morbidly obese, no acute distress, answers questions appropriately - Respiratory Respiratory exam: Present: CTAB. Absent: accessory muscle use, rales, rhonchi, wheezes - Cardiovascular Cardiovascular exam: Present: RRR, +S1, +S2. Absent: diastolic murmur, gallop, rubs, systolic murmur - GI/Abdominal GI/Abdominal exam: Present: normal bowel sounds, soft, no peritoneal signs. Absent: distended, tenderness - Extremities Exam Extremities exam: Present: warm, radial pulses palpable and symmetrical. Absent : calf tenderness, cyanotic, pedal edema Additional comments: B/L LE edema, left>right; improving left leg edema and erythema; Multiple surgical scars and deformities in B/L legs and feet due to previous surgeries for spina bifida Internal Medicine: Result - Labs CBC & Chem 7: 08/26/17 04:09 08/26/17 04:09 Labs: Short CBC 08/26/17 Range/Units 04:09 WBC 10.4 (4.3-11.1) K/mcL Hgb 10.4 L (12.9-16.9) g/dL Hct 34.2 L (37.5-50.1) % Plt Count 330 (140-400) K/mcL Neutrophils # 7.4 (1.6-8.9) K/mcL BMP 08/26/17 04:09 Sodium 137 Potassium 3.6 Chloride 102 Carbon Dioxide 25 BUN 13 Creatinine 1.07 Glucose 148 H Calcium 8.5 L Consult Discharge Plan - Plan Referrals: Maria Elena An MD [Primary Care Provider] -
--- NOTE | 2017-08-26 14:50 | Infectious Disease Consult ---
Date of Encounter: 08/26/17 Time of Encounter: 14:47 Assessment and Plan (1) Sepsis Status: Resolved Assessment and plan: The patient had two SIRS criteria on admission. Likely secondary to LLE cellulitis + possible UTI. Improved. WBC has normalized. The patient continues to have some intermittent tachycardia. No blood cultures were obtained on admission. Qualifiers: Sepsis type: sepsis due to unspecified organism Qualified Code(s): A41.9 - Sepsis, unspecified organism (2) Cellulitis Status: Acute Assessment and plan: Location: LLE. Causative organism unclear, but likely polymicrobial. Wound culture obtained from the left leg grew P. mirabilis - sensitivities are pending. Etiology likely multifactorial: venous insufficiency + CHF + chronic lower extremity edema + chronic leg ulcers. Clinically improved per patient report. Wound care consult in, awaiting recommendations. Consider pressure dressings to help decrease edema. Continue Vancomycin IV for now. Pharmacy to dose. Goal trough ~15. Continue Ertapenem 1 gram IV daily for now. If no ESBL isolated on cultures, will de-escalate based on susceptibilities. Duration of treatment depends on the clinical picture. We will likely be able to transition to oral antibiotics when ready for discharge. Recommend aggressive wound care. Monitor renal function and for drug toxicity and dose-adjust antibiotics. Qualifiers: Site of cellulitis: extremity Site of cellulitis of extremity: lower extremity Laterality: unspecified laterality Qualified Code(s): L03.119 - Cellulitis of unspecified part of limb (3) Bacteriuria Status: Acute Assessment and plan: Causative organism P. vulgaris and additional GNR (final ID and sensitivities are pending). UTI vs. asymptomatic bacteriuria - the patient reports that the urine specimen was obtained from the urostomy bag so I'm not sure how clean of a specimen it was. Consider getting sterile urine specimen by directly catheterizing the urostomy stoma. Continue antibiotics as above. (4) Diarrhea Status: Acute Assessment and plan: Etiology unclear. Patient reports multiple bowel movements that correlate with when he eats. Monitor diarrhea output closely. If more than 4 diarrheal stools per day, check C. diff. Continue probiotic BID. Qualifiers: Diarrhea type: unspecified type Qualified Code(s): R19.7 - Diarrhea, unspecified (5) Lower extremity edema Status: Acute Assessment and plan: Likely multifactorial: CHF + chronic venous insufficiency. Improved per patient report. (6) Diabetes Status: Chronic Assessment and plan: Recommend aggressive glucose monitoring and management to promote wound healing and prevent re-infection. Qualifiers: Diabetes mellitus type: type 2 Diabetes mellitus complication status: with skin complications Diabetes mellitus complication detail: with other skin ulcer Diabetes mellitus intermediate manager insulin use: unspecified intermediate manager insulin use status Qualified Code(s): E11.622 - Type 2 diabetes mellitus with other skin ulcer; L98.499 - Non-pressure chronic ulcer of skin of other sites with unspecified severity (7) Morbid obesity with BMI of 45.0-49.9, adult Status: Chronic (8) History of urostomy Status: Chronic Infectious Disease HPI - Data of Consult Patient: known to practice within the last 3 years Consult date: 08/27/17 Requesting Physician: Jennyfer Shaw MD Primary Care Provider: Maria Elena An - Consult Narrative Reason for consult: Cellulitis History of present illness: Mr. Leone is a 47 year old male with a past medical history of spina bifida, CHF , diabetes, chronic venous insufficiency, and a urostomy. She was admitted to the hospital August 24 for left lower extremity cellulitis. We are consulted August 26 for further evaluation and treatment recommendations regarding left lower extremity cellulitis. Patient's a 47-year-old male, known to the infectious disease service we have been consulted on this case in the past. On the day of admission with complaints of shortness of breath and swelling of the legs. Upon arrival, patient was afebrile, but he was tachycardic. He had leukocytosis with neutrophilic predominance. Chest x-ray showed pulmonary vascular congestion. Patient was noted to have erythema, swelling, blisters to the left lower extremity. Urinalysis was obtained from the patient's urostomy bag that was positive for nitrites, leukocyte esterase, and bacteria. She was started on empiric IV antibiotics and was admitted to the hospital for further evaluation and treatment. Since admission, the patient's white blood cell count has normalized she reports that he is improved clinically. Wound culture obtained from the left lower extremity is positive for Proteus mirabilis. Urine culture obtained in the emergency department is positive for Proteus vulgaris and an additional gram -negative cornelius. Currently, the patient is on IV ertapenem and IV vancomycin. We have asked to evaluate and make further recommendations. My exam today, the patient reports some subjective chills, but denies any fevers or rigors. He denies any headache or neck pain. He denies any congestion , earache, or sore throat. He does report some nausea, but denies any vomiting. He states he has loose diarrhea stools with any by mouth intake. He reports that his urostomy output has been normal in that his urine appears clear. Reports diffuse abdominal pain that is aching and crampy in nature. He reported pain to the bilateral lower extremities, worse in the left than the right. He states that over the 4 days prior to admission he had increased swelling in both lower extremities. He states he had stopped taking his Lasix because his urostomy bag would not hold the increased and. He states he's been seeing the wound clinic for bilateral lower extremity ulcers. He states that once the swelling started he developed new fluid-filled blisters had clear drainage. He reports that since being admitted and being on IV antibiotics his left lower extremity redness and pain have improved. CC: Jennyfer Shaw MD Past Med Surg Social Fam HX - Past Medical History Medical history: asthma, CHF, CVA, hyperlipidemia, hypertension, thyroid disease Psychiatric history: depression - Past Surgical History Surgical History: appendectomy, orthopedic, other, vasectomy, other - Social History Smoking Status: Never smoker Smokeless Tobacco Status: No Alcohol use: none Drug use: none - Family History Mother Family Member Ethnicity: Non- Living Status: Still Living Hx Family Cardiac Disorders: Yes (HTN) Hx Family Endocrine Disorder: Yes (DM) Hx Family Neurologic Disorders: Yes (Dementia) Sister Family Member Ethnicity: Non- Living Status: Still Living Hx Family Cardiac Disorders: Yes (HTN) Hx Family Endocrine Disorder: Yes (DM, thyroid) Brother History Unknown: Yes Family Member Ethnicity: Non- Living Status: Still Living Hx Family Cardiac Disorders: Yes (HTN) Father Family Member Ethnicity: Non- Living Status: Hx Family Cardiac Disorders: Yes (CHF, HTN) Hx Family Respiratory Disorders: Yes (Asthma, emphysema) Hx Family Cancer: Yes (Lung) Hx Family GI Disorders: No Hx Family Endocrine Disorder: Yes Hx Family Neuromuscular Disorders: No Hx Family Neurologic Disorders: No Hx Family HEENT Disorders: No Hx Family Autoimmune Disorders: No Infectious Disease-CN:Meds Fluticasone Propionate Nasal [Flonase] 50 mcg NS DAILY 11/21/15 [History] Potassium Chloride 60 meq PO BID 11/21/15 [History] Rosuvastatin [Crestor] 20 mg PO HS 11/21/15 [History] Cholecalciferol (Vitamin D3) [Vitamin D3] 5,000 unit PO DAILY 11/12/16 [History] Fluticasone Propionate [Flovent Hfa] 2 puff IH BID 11/12/16 [History] Levothyroxine [Synthroid] 200 mcg PO DAILY 11/12/16 [History] Budesonide [Pulmicort Flexhaler 180mcg] 1 puff IH BID 03/08/17 [History] Lactobacillus Acidophilus/Fos [Acidophilus Probiotic Tablet] 1 cap PO DAILY 06/17 [History] Lansoprazole [Prevacid] 15 mg PO DAILY 03/08/17 [History] Loratadine [Claritin] 10 mg PO DAILY 03/08/17 [History] Multivitamin [One Daily Multivitamin] 1 tab PO DAILY 03/08/17 [History] Enalapril Maleate [Vasotec] 10 mg PO DAILY 03/23/17 [History] Ostomy Adhesive [Coloplast Paste Strip] 1 each MC AD 03/23/17 [History] Saline Nasal Scio [George Nasal Scio] 1 spray NS AD 03/23/17 [History] Ertapenem [INVanz] 1,000 mg IVPB DAILY #16 vial 06/14/17 [Rx] Ipratropium/Albuterol Neb [Duoneb] 3 ml IH [id number] inh 06/14/17 [Rx] Omeprazole [PriLOSEC] 20 mg PO DAILY 08/25/17 [History] 3 Allergy/AdvReac Type Severity Reaction Status Date / Time adhesive Allergy Blister Verified 08/24/17 19:24 Amoxicillin Allergy Hives Verified 08/24/17 19:24 Oxaprozin [From Daypro] AdvReac Diarrhea Verified 08/24/17 19:24 Exam - Constitutional Vitals: Temp Pulse Resp BP Pulse Ox 97.5 F L 103 14 96/64 96 08/26/17 14:37 08/26/17 14:37 08/26/17 14:37 08/26/17 14:37 08/26/17 14:37 Infectious Disease CN: Results - Labs CBC & Chem 7: 08/27/17 06:25 08/27/17 06:25 Consult Discharge Plan - Plan Referrals: Maria Elena An MD [Primary Care Provider] -
[2017-08-26] MEDS ORDERED: Vancomycin 2,000 MG in D5% in Water 250 ML IVPB SCH (18:00)
[2017-08-26] MEDS: Magnesium Oxide 400 MG TABLET PO SCH (21:55)
[2017-08-27] MEDS: Ipratropium/Albuterol Neb 3 ML IH SCH ×7 (00:22→23:35)
[2017-08-27] MEDS: *HR* Heparin 5,000 UNIT/ML VIAL SQ SCH ×2 (06:14→18:17)
[2017-08-27 06:55] LABS: BUN/Creatinine Ratio 16 (6-26); Blood Urea Nitrogen 14 mg/dL (8-26); Calcium 8.8 mg/dL (8.6-10.8); Carbon Dioxide 28 mEq/L (19-29); Chloride 97 mEq/L (98-109); Glucose 138 mg/dL (70-99); Magnesium 1.6 mg/dL (1.6-2.6); Osmolality,Calculated 285 (280-300); Potassium 3.6 mEq/L (3.5-4.5); Sodium 136 mEq/L (136-145); eGFR For African Americans > 60 (> 60); eGFR For Non-African Americans > 60 (> 60)
[2017-08-27] MEDS: Beclomethasone 80mcg MDI IH SCH ×2 (07:49→20:36)
[2017-08-27 08:45] LABS: Basophils # 0.1 K/mcL (0.0-0.2); Basophils % 0.7 %; Eosinophils # 0.6 K/mcL (0.0-0.6); Eosinophils % 5.2 %; Hematocrit 34.5 % (37.5-50.1); Hemoglobin 10.4 g/dL (12.9-16.9); Immature Granulocytes % 0.3 % (0-4); Lymphocytes # 1.7 K/mcL (0.6-4.6); Lymphocytes % 14.7 %; Mean Corpuscular HGB Conc 30.1 g/dL (31.6-35.5); Mean Corpuscular Hemoglobin 24.8 pg (28.0-33.3); Mean Corpuscular Volume 82.1 fL (83.0-100.0); Mean Platelet Volume 10.9 fL (9.4-12.4); Monocytes # 0.9 K/mcL (0.0-1.3); Monocytes % 8.1 %; Neutrophils # 8.1 K/mcL (1.6-8.9); Platelet Count 345 K/mcL (140-400); Red Cell Distribution Width 16.6 % (11.5-14.5)
[2017-08-27] MEDS: Ertapenem 1,000 MG in 0.9 % Sodium Chloride Mini Bag 100 ML IVPB SCH (10:26)
[2017-08-27] MEDS: Magnesium Oxide 400 MG TABLET PO SCH ×2 (10:27→20:17)
[2017-08-27] MEDS: Cholecalciferol (D-3) 1,000 UNIT TABLET PO SCH (10:27)
[2017-08-27] MEDS: Loratadine 10 MG TABLET PO SCH (10:27)
[2017-08-27] MEDS: Lactobacillus 1 EACH CAP.SPRINK PO SCH (10:27)
[2017-08-27] MEDS: Furosemide 40 MG/4 ML VIAL IVP SCH ×2 (10:27→18:17)
[2017-08-27] MEDS: Vancomycin 1,500 MG in D5% in Water 250 ML IVPB SCH (11:49)
[2017-08-27] MEDS: Fluticasone Propionate Nasal 50 MCG/SPRAY BOTTLE NS SCH (13:53)
--- NOTE | 2017-08-27 13:53 | Infectious Disease Progress No ---
Date of Encounter: 08/27/17 Time of Encounter: 13:51 - Assessment and Plan (1) Sepsis Current Visit: No Status: Resolved The patient had two SIRS criteria on admission. Likely secondary to LLE cellulitis + possible UTI. Improved. WBC has normalized. The patient continues to have some intermittent tachycardia. No blood cultures were obtained on admission. Qualifiers: Sepsis type: sepsis due to unspecified organism Qualified Code(s): A41.9 - Sepsis, unspecified organism (2) Cellulitis Current Visit: Yes Status: Acute Location: LLE. Causative organism unclear, but likely polymicrobial. Wound culture obtained from the left leg grew P. mirabilis - pansensitive. Etiology likely multifactorial: venous insufficiency + CHF + chronic lower extremity edema + chronic leg ulcers. Clinically improved per patient report. Wound care consult in, awaiting recommendations. Consider pressure dressings to help decrease edema. Continue Vancomycin IV for now. Pharmacy to dose. Goal trough ~15. Discontinue Ertapenem. Start levaquin 750mg IV daily. Duration of treatment depends on the clinical picture, but likely a total of 14 days. Can switch to PO Levaquin and doxycycline when ready for discharge to complete the course of treatment. Recommend aggressive wound care. Monitor renal function and for drug toxicity and dose-adjust antibiotics. Qualifiers: Site of cellulitis: extremity Site of cellulitis of extremity: lower extremity Laterality: unspecified laterality Qualified Code(s): L03.119 - Cellulitis of unspecified part of limb (3) Bacteriuria Current Visit: No Status: Acute Causative organism P. vulgaris and E. coli, but of which are mcneal-sensitive. UTI vs. asymptomatic bacteriuria - the patient reports that the urine specimen was obtained from the urostomy bag so I'm not sure how clean of a specimen it was. Consider getting sterile urine specimen by directly catheterizing the urostomy stoma. Continue antibiotics as above. (4) Diarrhea Current Visit: No Status: Resolved Etiology unclear, but patient reports it has resolved. Continue probiotic BID. Qualifiers: Diarrhea type: unspecified type Qualified Code(s): R19.7 - Diarrhea, unspecified (5) Lower extremity edema Current Visit: No Status: Acute Likely multifactorial: CHF + chronic venous insufficiency. Improved per patient report. (6) Diabetes Current Visit: No Status: Chronic Recommend aggressive glucose monitoring and management to promote wound healing and prevent re-infection. Qualifiers: Diabetes mellitus type: type 2 Diabetes mellitus complication status: with skin complications Diabetes mellitus complication detail: with other skin ulcer Diabetes mellitus technician terminal and repeater insulin use: unspecified detention insulin use status Qualified Code(s): E11.622 - Type 2 diabetes mellitus with other skin ulcer; L98.499 - Non-pressure chronic ulcer of skin of other sites with unspecified severity (7) Morbid obesity with BMI of 45.0-49.9, adult Current Visit: Yes Status: Chronic (8) History of urostomy Current Visit: Yes Status: Chronic Consult ostomy nurse. - Subjective Interval history: Patient seen and examined. No acute events noted overnight. Patient states that overall he feels well. Denies fevers, chills, or rigors. Denies chest pain, shortness of breath, or cough. Denies nausea, vomiting or diarrhea. Denies abdominal pain and states his leg pain is much better. Reports that his urostomy device is leaking again. Denies oral thrush or any other skin lesions. Infect Dis PN-Objective Data - Labs CBC & Chem 7: 08/27/17 06:25 08/27/17 06:25 Labs: Laboratory Results - last 24 hr 08/26/17 08/26/17 08/27/17 17:28 19:38 06:25 WBC 11.4 H RBC 4.20 Hgb 10.4 L Hct 34.5 L MCV 82.1 L MCH 24.8 L MCHC 30.1 L RDW 16.6 H Plt Count 345 MPV 10.9 Immature Gran % 0.3 Seg Neutrophils % 71.0 Lymphocytes % 14.7 Monocytes % 8.1 Eosinophils % 5.2 Basophils % 0.7 Neutrophils # 8.1 Lymphocytes # 1.7 Monocytes # 0.9 Eosinophils # 0.6 Basophils # 0.1 Sodium Potassium Chloride Carbon Dioxide BUN Creatinine Est GFR ( Amer) Est GFR (Non-Af Amer) BUN/Creatinine Ratio Glucose POC Glucose 147 H 159 H Calculated Osmolality Calcium Magnesium 08/27/17 08/27/17 06:25 08:04 WBC RBC Hgb Hct MCV MCH MCHC RDW Plt Count MPV Immature Gran % Seg Neutrophils % Lymphocytes % Monocytes % Eosinophils % Basophils % Neutrophils # Lymphocytes # Monocytes # Eosinophils # Basophils # Sodium 136 Potassium 3.6 Chloride 97 L Carbon Dioxide 28 BUN 14 Creatinine 0.85 Est GFR ( Amer) > 60 Est GFR (Non-Af Amer) > 60 BUN/Creatinine Ratio 16 Glucose 138 H POC Glucose 128 H Calculated Osmolality 285 Calcium 8.8 Magnesium 1.6 Exam - Constitutional Vitals: Temp Pulse Resp BP Pulse Ox 97.8 F 100 18 150/89 96 08/27/17 11:49 08/27/17 11:49 08/27/17 11:56 08/27/17 11:49 08/27/17 11:56 General appearance: cooperative, no acute distress, obese - Head Head exam: Present: atraumatic, normal inspection, normocephalic - Eye Eye exam: Present: EOMI, normal appearance, PERRL Pupils: Present: normal accommodation - ENT ENT exam: Present: mucous membranes moist - Neck Neck exam: Present: normal inspection - Respiratory Respiratory exam: Present: CTAB. Absent: rales, respiratory distress, rhonchi, wheezes - Cardiovascular Cardiovascular exam: Present: RRR, +S1, +S2 - GI/Abdominal GI/Abdominal exam: Present: distended (obese), normal bowel sounds, soft. Absent: tenderness Additional comments: Urostomy noted to the RLQ with collection appliance noted. Clear yellow urine noted to be draining from urostomy. - Extremities Exam Extremities exam: Present: pedal edema (1+ BLE). Absent: joint swelling, tenderness Additional comments: LLE erythema continues to improve. - Neurological Exam Neurological exam: Present: alert, oriented X3, no focal deficits - Psychiatric Psychiatric exam: Present: normal affect, normal mood - Skin Skin exam: Present: dry, intact, normal color, warm Consult Discharge Plan - Plan Referrals: Maria Elena An MD [Primary Care Provider] -
--- NOTE | 2017-08-27 16:11 | Internal Med Progress Note ---
Date of Encounter: 08/27/17 Time of Encounter: 16:30 - Assessment and plan (1) Cellulitis of left lower extremity Current Visit: Yes Status: Acute Assessment and plan: to right lower extremity. Initially treated with IV Vancomycin and Ertapenem. Wound culture with Proteus mirabilis. Ertapenem stopped and Levaquin started. Continue IV Vanco. Will likely need total 14 days ATB therapy. Plan to switch to PO Levaquin and doxycycline at discharge. ID and wound care following (2) History of urostomy Current Visit: Yes Status: Chronic Assessment and plan: History of bladder cancer with subsequent urostomy. Now with chronic, nonhealing peristomal ulcers. He was evaluated by general surgery 11/2015 who noted wounds not likely to heal unless urine is diverted from wound; Gray catheter diversion was recommended at that time. Continue with current ostomy system. We will discuss with wound care 08/28. (3) UTI (urinary tract infection) Current Visit: Yes Status: Acute Assessment and plan: Causative organism P. vulgaris and E. coli, but of which are mcneal-sensitive. UTI vs. asymptomatic bacteriuria (urine specimen obtained from urostomy bag). Repeat UA, C&S with specimen that is obtained via stoma Qualifiers: Urinary tract infection type: site unspecified Hematuria presence: without hematuria Qualified Code(s): N39.0 - Urinary tract infection, site not specified (4) DVT prophylaxis Current Visit: No Status: Acute Assessment and plan: heparin (5) Spina bifida Current Visit: Yes Status: Chronic Assessment and plan: per hx. Has multiple decubitus ulcers on left thigh and leg due to wheelchair; poor hygiene; wound care following Qualifiers: Spinal region: lumbosacral Presence of hydrocephalus: unspecified hydrocephalus presence Qualified Code(s): Q05.7 - Lumbar spina bifida without hydrocephalus (6) Morbid obesity with BMI of 40.0-44.9, adult Current Visit: Yes Status: Chronic Assessment and plan: BMI 43; lifestyle modifications encouraged (7) Diabetes Current Visit: No Status: Chronic Assessment and plan: per hx but not currently being treated. Control unknown. Last Hgb A1c 5.6 on 2016. Repeat Hgb A1c. Qualifiers: Diabetes mellitus type: type 2 Diabetes mellitus complication status: with skin complications Diabetes mellitus complication detail: with other skin ulcer Diabetes mellitus mcfp insulin use: unspecified termite control representative insulin use status Qualified Code(s): E11.622 - Type 2 diabetes mellitus with other skin ulcer; L98.499 - Non-pressure chronic ulcer of skin of other sites with unspecified severity - Subjective Interval history: Examined at bedside; patient is new to me. Information obtained from chart review and patient report. Patient says that his urostomy bag is leaking every time he walks which is preventing him his mobility which is led to multiple wounds. Says he feels much better my exam, feels like cellulitis is improving. Urostomy bag is still leaking. Denies chest pain, no shortness of breath. - Constitutional Vitals: Temp Pulse Resp BP Pulse Ox 97.8 F 100 18 150/89 96 08/27/17 11:49 08/27/17 11:49 08/27/17 15:42 08/27/17 11:49 08/27/17 15:42 General appearance: Present: cooperative, A&O X 3, morbidly obese, no acute distress, answers questions appropriately - Head Head exam: Present: atraumatic, normocephalic - Eye Eye exam: Present: PERRL, conjuntiva pink, sclera anicteric Pupils: Present: PERRL - Neck Neck exam general surgery: Present: supple, trachea midline. Absent: lymphadenopathy - Respiratory Respiratory exam: Present: CTAB. Absent: accessory muscle use, rales, rhonchi, wheezes - Cardiovascular Cardiovascular exam: Present: RRR, +S1, +S2. Absent: diastolic murmur, gallop, rubs, systolic murmur - GI/Abdominal GI/Abdominal exam: Present: normal bowel sounds, soft, no peritoneal signs. Absent: distended, tenderness - Extremities Exam Extremities exam: Present: pedal edema, warm, radial pulses palpable and symmetrical. Absent: calf tenderness, cyanotic Additional comments: bilateral lower extremity pitting edema. Right lower extremity with dressing C/D /I (area not assessed). - Neurological Exam Neurological exam: Present: CN II-XII intact, oriented X3, no focal deficits. Absent: pronater drift, facial droop, speech deficit - Skin Skin exam: Present: dry, intact Internal Medicine: Result - Labs CBC & Chem 7: 08/27/17 06:25 08/27/17 06:25 Labs: Short CBC 08/27/17 Range/Units 06:25 WBC 11.4 H (4.3-11.1) K/mcL Hgb 10.4 L (12.9-16.9) g/dL Hct 34.5 L (37.5-50.1) % Plt Count 345 (140-400) K/mcL Neutrophils # 8.1 (1.6-8.9) K/mcL BMP 08/27/17 06:25 Sodium 136 Potassium 3.6 Chloride 97 L Carbon Dioxide 28 BUN 14 Creatinine 0.85 Glucose 138 H Calcium 8.8 Consult Discharge Plan - Plan Referrals: Maria Elena An MD [Primary Care Provider] -
[2017-08-28] MEDS: Vancomycin 1,500 MG in D5% in Water 250 ML IVPB SCH ×2 (00:02→12:03)
[2017-08-28] MEDS: Ipratropium/Albuterol Neb 3 ML IH SCH ×6 (04:18→23:14)
[2017-08-28] MEDS: *HR* Heparin 5,000 UNIT/ML VIAL SQ SCH ×2 (05:35→17:37)
[2017-08-28] MEDS: Beclomethasone 80mcg MDI IH SCH ×2 (07:49→21:08)
[2017-08-28] MEDS: Furosemide 40 MG/4 ML VIAL IVP SCH ×2 (10:02→17:38)
[2017-08-28] MEDS: Loratadine 10 MG TABLET PO SCH (10:03)
[2017-08-28] MEDS: Magnesium Oxide 400 MG TABLET PO SCH ×2 (10:03→21:02)
[2017-08-28] MEDS: Lactobacillus 1 EACH CAP.SPRINK PO SCH (10:03)
[2017-08-28] MEDS: Cholecalciferol (D-3) 1,000 UNIT TABLET PO SCH (10:03)
[2017-08-28] MEDS: Fluticasone Propionate Nasal 50 MCG/SPRAY BOTTLE NS SCH (10:04)
[2017-08-28] MEDS: Levofloxacin 750 MG/150 ML 750 MG/150 ML BAG IVPB SCH (10:04)
--- NOTE | 2017-08-28 16:09 | Infectious Disease Progress No ---
Date of Encounter: 08/28/17 Time of Encounter: 16:06 - Assessment and Plan (1) Sepsis Current Visit: No Status: Resolved The patient had two SIRS criteria on admission. Likely secondary to LLE cellulitis + possible UTI. Improved. WBC has normalized. The patient continues to have some intermittent tachycardia. No blood cultures were obtained on admission. See antibiotic recommendations below. No further recommendations from the ID team. Will sign off. Please re-consult PRN. Qualifiers: Sepsis type: sepsis due to unspecified organism Qualified Code(s): A41.9 - Sepsis, unspecified organism (2) Cellulitis Current Visit: Yes Status: Acute Location: LLE. Causative organism unclear, but likely polymicrobial. Wound culture obtained from the left leg grew P. mirabilis - pansensitive. Etiology likely multifactorial: venous insufficiency + CHF + chronic lower extremity edema + chronic leg ulcers. Clinically improved per patient report. Wound care consult in, awaiting recommendations. Consider pressure dressings to help decrease edema. Continue Vancomycin IV for now. Pharmacy to dose. Goal trough ~15. Continue levaquin 750mg IV daily. Duration of treatment depends on the clinical picture, but likely a total of 14 days. Can switch to PO Levaquin and doxycycline when ready for discharge to complete the course of treatment. Recommend aggressive wound care. Monitor renal function and for drug toxicity and dose-adjust antibiotics. Qualifiers: Site of cellulitis: extremity Site of cellulitis of extremity: lower extremity Laterality: unspecified laterality Qualified Code(s): L03.119 - Cellulitis of unspecified part of limb (3) Bacteriuria Current Visit: No Status: Acute Causative organism P. vulgaris and E. coli, but of which are mcneal-sensitive. UTI vs. asymptomatic bacteriuria - the patient reports that the urine specimen was obtained from the urostomy bag so I'm not sure how clean of a specimen it was. Consider getting sterile urine specimen by directly catheterizing the urostomy stoma. Continue antibiotics as above. (4) Diarrhea Current Visit: No Status: Resolved Etiology unclear, but patient reports it has resolved. Continue probiotic BID. Qualifiers: Diarrhea type: unspecified type Qualified Code(s): R19.7 - Diarrhea, unspecified (5) Lower extremity edema Current Visit: No Status: Acute Likely multifactorial: CHF + chronic venous insufficiency. Improved per patient report. (6) Diabetes Current Visit: No Status: Chronic Recommend aggressive glucose monitoring and management to promote wound healing and prevent re-infection. Qualifiers: Diabetes mellitus type: type 2 Diabetes mellitus complication status: with skin complications Diabetes mellitus complication detail: with other skin ulcer Diabetes mellitus prison insulin use: unspecified family support specialist insulin use status Qualified Code(s): E11.622 - Type 2 diabetes mellitus with other skin ulcer; L98.499 - Non-pressure chronic ulcer of skin of other sites with unspecified severity (7) Morbid obesity with BMI of 45.0-49.9, adult Current Visit: Yes Status: Chronic (8) History of urostomy Current Visit: Yes Status: Chronic Consult ostomy nurse. - Subjective Interval history: Patient seen and examined. No acute events noted overnight. Patient states that overall he feels well. Denies fevers, chills, or rigors. Denies chest pain, shortness of breath, or cough. Denies nausea, vomiting or diarrhea. Denies abdominal pain and states his leg pain is much better. Reports that his urostomy device is no longer leaking, but he has not been out of bed today. Denies oral thrush or any new skin lesions. Infect Dis PN-Objective Data - Labs CBC & Chem 7: 08/27/17 06:25 08/27/17 06:25 Labs: Laboratory Results - last 24 hr 08/27/17 08/27/17 08/27/17 11:51 16:15 19:29 POC Glucose 131 H 134 H 147 H Vancomycin Trough 08/28/17 08/28/17 08/28/17 03:50 06:48 10:25 POC Glucose 126 H Vancomycin Trough 31.5 H* 17.5 08/28/17 12:10 POC Glucose 135 H Vancomycin Trough Exam - Constitutional Vitals: Temp Pulse Resp BP Pulse Ox 98.5 F 109 18 121/76 95 08/28/17 14:59 08/28/17 14:59 08/28/17 15:41 08/28/17 14:59 08/28/17 15:41 General appearance: cooperative, morbidly obese, no acute distress - Head Head exam: Present: atraumatic, normal inspection, normocephalic - Eye Eye exam: Present: EOMI, normal appearance, PERRL Pupils: Present: normal accommodation - ENT ENT exam: Present: mucous membranes moist - Neck Neck exam: Present: normal inspection - Respiratory Respiratory exam: Present: CTAB. Absent: rales, respiratory distress, rhonchi, wheezes - Cardiovascular Cardiovascular exam: Present: RRR, +S1, +S2 - GI/Abdominal GI/Abdominal exam: Present: distended (obese), normal bowel sounds, soft. Absent: tenderness Additional comments: Urostomy noted to the RLQ with collection device intact and clear yellow urine noted. - Extremities Exam Extremities exam: Present: pedal edema (1+ BLE). Absent: joint swelling, tenderness - Neurological Exam Neurological exam: Present: alert, oriented X3, no focal deficits - Psychiatric Psychiatric exam: Present: normal affect, normal mood - Skin Skin exam: Present: dry, intact, normal color, warm Consult Discharge Plan - Plan Referrals: Maria Elena An MD [Primary Care Provider] -
--- NOTE | 2017-08-28 16:35 | Internal Med Progress Note ---
Date of Encounter: 08/28/17 Time of Encounter: 16:33 - Assessment and plan (1) Cellulitis of left lower extremity Current Visit: Yes Status: Acute Assessment and plan: to left lower extremity. Initially treated with IV Vancomycin and Ertapenem. Wound culture with Proteus mirabilis however ID suspects polymicrobial. Ertapenem stopped and Levaquin started. Continue IV Vanco. Change ATB PO Levaquin and doxycycline at discharge. Cont local wound care (2) History of urostomy Current Visit: Yes Status: Chronic Assessment and plan: History of bladder cancer with subsequent urostomy. Now with chronic, nonhealing peristomal ulcers. He was evaluated by general surgery 11/2015 who noted wounds not likely to heal unless urine is diverted from wound; Gray catheter diversion was recommended at that time. system administration advisor attempting to get new appliance/system. Continue with current ostomy system. He may benefit from SNF for wound care. (3) UTI (urinary tract infection) Current Visit: Yes Status: Acute Assessment and plan: Causative organism P. vulgaris and E. coli, but of which are mcneal-sensitive. UTI vs. asymptomatic bacteriuria (urine specimen obtained from urostomy bag). Repeat UA, C&S with specimen that is obtained via stoma Qualifiers: Urinary tract infection type: site unspecified Hematuria presence: without hematuria Qualified Code(s): N39.0 - Urinary tract infection, site not specified (4) Spina bifida Current Visit: Yes Status: Chronic Assessment and plan: per hx. Has multiple decubitus ulcers on left thigh and leg due to wheelchair; poor hygiene; wound care following Qualifiers: Spinal region: lumbosacral Presence of hydrocephalus: unspecified hydrocephalus presence Qualified Code(s): Q05.7 - Lumbar spina bifida without hydrocephalus (5) Diabetes Current Visit: No Status: Chronic Assessment and plan: per hx but not currently being treated. Control unknown. Last Hgb A1c 5.6 on 2016. Repeat Hgb A1c. Qualifiers: Diabetes mellitus type: type 2 Diabetes mellitus complication status: with skin complications Diabetes mellitus complication detail: with other skin ulcer Diabetes mellitus prison insulin use: unspecified prison insulin use status Qualified Code(s): E11.622 - Type 2 diabetes mellitus with other skin ulcer; L98.499 - Non-pressure chronic ulcer of skin of other sites with unspecified severity (6) Morbid obesity with BMI of 40.0-44.9, adult Current Visit: Yes Status: Chronic Assessment and plan: BMI 43; lifestyle modifications encouraged (7) Sepsis Current Visit: No Status: Resolved Assessment and plan: With elevated WBC and tachycardia on admission. Secondary to cellulitis and possible UTI. Blood cultures, lactic acid not drawn in ED. WBC normalized. Continue treating cellulitis, UTI as noted above. Qualifiers: Sepsis type: sepsis due to unspecified organism Qualified Code(s): A41.9 - Sepsis, unspecified organism (8) DVT prophylaxis Current Visit: No Status: Acute Assessment and plan: heparin - Subjective Interval history: Examined at bedside; says he feels better today. Discussed with patient at length regarding the trouble he had with his urostomy. He reports catheter diversion was attempted 2 years ago and failed. Discussed case with Dr. Aguayo who is very familiar with patient and he recommends SNF for wound care. Also discussed case with motor vehicles supervisor who is very similar as patient is well. She is looking into new urostomy system.. - Constitutional Vitals: Temp Pulse Resp BP Pulse Ox 98.5 F 109 18 121/76 95 08/28/17 14:59 08/28/17 14:59 08/28/17 15:41 08/28/17 14:59 08/28/17 15:41 General appearance: Present: cooperative, A&O X 3, morbidly obese, no acute distress, answers questions appropriately - Head Head exam: Present: atraumatic, normocephalic - Eye Eye exam: Present: PERRL, conjuntiva pink, sclera anicteric Pupils: Present: PERRL - Neck Neck exam general surgery: Present: supple, trachea midline. Absent: lymphadenopathy - Respiratory Respiratory exam: Present: CTAB. Absent: accessory muscle use, rales, rhonchi, wheezes - Cardiovascular Cardiovascular exam: Present: RRR, +S1, +S2. Absent: diastolic murmur, gallop, rubs, systolic murmur - GI/Abdominal GI/Abdominal exam: Present: normal bowel sounds, soft, no peritoneal signs. Absent: distended, tenderness Additional comments: RUQ urostomy - Extremities Exam Extremities exam: Present: pedal edema, warm, radial pulses palpable and symmetrical. Absent: calf tenderness, cyanotic Additional comments: bilateral lower ext swelling. Left worse than right. Left lower leg dressing C/D /I - Neurological Exam Neurological exam: Present: CN II-XII intact, oriented X3, no focal deficits. Absent: pronater drift, facial droop, speech deficit - Skin Skin exam: Present: dry, intact Internal Medicine: Result - Labs CBC & Chem 7: 08/27/17 06:25 08/27/17 06:25 Consult Discharge Plan - Plan Referrals: Maria Elena An MD [Primary Care Provider] -
[2017-08-29] MEDS: Ipratropium/Albuterol Neb 3 ML IH SCH ×6 (03:51→23:19)
[2017-08-29] MEDS: *HR* Heparin 5,000 UNIT/ML VIAL SQ SCH ×2 (05:54→17:54)
[2017-08-29 06:07] LABS: Hematocrit 36.5 % (37.5-50.1); Hemoglobin 11.1 g/dL (12.9-16.9); Mean Corpuscular HGB Conc 30.4 g/dL (31.6-35.5); Mean Corpuscular Hemoglobin 25.1 pg (28.0-33.3); Mean Corpuscular Volume 82.4 fL (83.0-100.0); Mean Platelet Volume 10.2 fL (9.4-12.4); Platelet Count 378 K/mcL (140-400); Red Blood Count 4.43 M/mcL (4.19-5.50); Red Cell Distribution Width 16.5 % (11.5-14.5)
[2017-08-29 06:14] LABS: Hemoglobin A1C 5.9 %
[2017-08-29 06:17] LABS: Alanine Aminotransferase 22 Units/L (0-55); Albumin 3.1 g/dL (3.5-5.0); Albumin/Globulin Ratio 0.6 (1.1-2.2); Alkaline Phosphatase 84 Units/L (38-126); Aspartate Amino Transferase 21 Units/L (5-34); BUN/Creatinine Ratio 20 (6-26); Bilirubin,Total 0.4 mg/dL (0.2-1.2); Blood Urea Nitrogen 21 mg/dL (8-26); Calcium 9.7 mg/dL (8.6-10.8); Carbon Dioxide 26 mEq/L (19-29); Chloride 97 mEq/L (98-109); Globulin 4.9 g/dL (2.4-3.5); Glucose 141 mg/dL (70-99); Osmolality,Calculated 289 (280-300); Potassium 3.8 mEq/L (3.5-4.5); Sodium 137 mEq/L (136-145); eGFR For African Americans > 60 (> 60); eGFR For Non-African Americans > 60 (> 60)
[2017-08-29] MEDS: Beclomethasone 80mcg MDI IH SCH ×2 (07:46→19:31)
[2017-08-29] MEDS: Loratadine 10 MG TABLET PO SCH (09:30)
[2017-08-29] MEDS: Furosemide 40 MG/4 ML VIAL IVP SCH ×2 (09:30→17:54)
[2017-08-29] MEDS: Levofloxacin 750 MG/150 ML 750 MG/150 ML BAG IVPB SCH (09:31)
[2017-08-29] MEDS: Lactobacillus 1 EACH CAP.SPRINK PO SCH (09:31)
[2017-08-29] MEDS: Cholecalciferol (D-3) 1,000 UNIT TABLET PO SCH (09:31)
[2017-08-29] MEDS: Fluticasone Propionate Nasal 50 MCG/SPRAY BOTTLE NS SCH (09:33)
[2017-08-29] MEDS: Magnesium Oxide 400 MG TABLET PO SCH ×2 (09:35→20:49)
[2017-08-29] MEDS: Vancomycin 1,250 MG in D5% in Water 250 ML IVPB SCH ×3 (11:30→23:55)
--- NOTE | 2017-08-29 14:36 | Discharge Summary ---
Date of Encounter: 08/29/17 Time of Encounter: 14:23 - Discharge Diagnosis (1) Cellulitis of left lower extremity Priority: Primary Status: Acute Comments: Sammy Marie is a 47-year-old male with past medical history spina bifida, bladder cancer with urostomy, hypertension, morbid obesity and chronic decubitus ulcer who presented to [facility] on 08/24/2017 with complaints of left lower extremity pain and concern for infection. He was found to be in sepsis secondary to left lower extreme a cellulitis and was admitted for IV ATB. 1. Cellulitis to left lower extremity: symptomatic with left lower leg swelling , erythema and open wounds on admission. Vancomycin and Ertapenem started on admission based upon prior wound cultures showed proteus mirabilis. repeat wound culture again with Proteus mirabilis. Evaluated by infectious diseases suspected polymicrobial. Ertapenem stopped and Levaquin added to IV Vanco. Change ATB PO Levaquin and doxycycline at discharge; he will need a total of 14 days therapy (stop date on ATB will be 09/06/17 ). Cont local wound care 2. UTI: Possible. UA grossly indicative of UTI, however specimen obtained from urostomy bag. Low suspicion for true UTI. Continue ATB as noted above 3. Bladder cancer: per hx with subsequent urostomy development. Has had long- standing issues with urostomy including stoma retraction, required revision at the [facility]. Now with chronic, nonhealing peristomal ulcers. Previously evaluated by general surgery 11/2015 who noted wounds not likely to heal unless urine is diverted from wound; Gray catheter diversion attempted at that time and failed. Discussed with label coder who is very familiar with patient; she is optimistic that. He stomal wounds have a good chance of healing with appropriate wound care. Patient would benefit from SNF at discharge for wound care. Discharge planning process continue local wound care. 4. Acute on chronic diastolic heart failure: 06/2017 TTE with EF 60% and evidence of diastolic dysfunction. With reported fluid overload on admission; he does not take Lasix at home. He was diuresed with IV Lasix and now appears euvolemic. IV Lasix stopped. Monitor fluid status. 5. Sepsis: With elevated WBC and tachycardia on admission (although tachycardia appears to be chronic). Afebrile, lactic acid and blood cultures not drawn in ED. Secondary to left lower extremity cellulitis and possible UTI ; however urine specimen was taken from urostomy bag, therefore likely contaminated and not true/accurate UA. WBC normalized, remains intermittently tachycardia however does not appear acute or toxic. Sepsis resolved at time of discharge. Continue treating cellulitis as noted above. 6. Spina bifida: per hx. somewhat ambulatory with crutches. Has been bed bound recently with urostmoy not sealing. Would benefit from PT/OT at SNF. Supportive care 7. DVT prophylaxis: Heparin (2) History of urostomy Priority: Primary Status: Chronic (3) UTI (urinary tract infection) Priority: Secondary Status: Acute Qualifiers: Urinary tract infection type: site unspecified Hematuria presence: without hematuria Qualified Code(s): N39.0 - Urinary tract infection, site not specified (4) Spina bifida Priority: Primary Status: Chronic Qualifiers: Spinal region: lumbosacral Presence of hydrocephalus: unspecified hydrocephalus presence Qualified Code(s): Q05.7 - Lumbar spina bifida without hydrocephalus (5) Diabetes Priority: Primary Status: Chronic Qualifiers: Diabetes mellitus type: type 2 Diabetes mellitus complication status: with skin complications Diabetes mellitus complication detail: with other skin ulcer Diabetes mellitus custodial insulin use: unspecified custodial insulin use status Qualified Code(s): E11.622 - Type 2 diabetes mellitus with other skin ulcer; L98.499 - Non-pressure chronic ulcer of skin of other sites with unspecified severity (6) Morbid obesity with BMI of 40.0-44.9, adult Priority: Primary Status: Chronic (7) Sepsis Priority: Primary Status: Resolved Qualifiers: Sepsis type: sepsis due to unspecified organism Qualified Code(s): A41.9 - Sepsis, unspecified organism (8) DVT prophylaxis Priority: Secondary Status: Acute - Discharge Medications Home Medications: Fluticasone Propionate Nasal [Flonase] 50 mcg NS DAILY 11/21/15 [History] Potassium Chloride 60 meq PO BID 11/21/15 [History] Rosuvastatin [Crestor] 20 mg PO HS 11/21/15 [History] Cholecalciferol (Vitamin D3) [Vitamin D3] 5,000 unit PO DAILY 11/12/16 [History] Fluticasone Propionate [Flovent Hfa] 2 puff IH BID 11/12/16 [History] Levothyroxine [Synthroid] 200 mcg PO DAILY 11/12/16 [History] Budesonide [Pulmicort Flexhaler 180mcg] 1 puff IH BID 03/08/17 [History] Lactobacillus Acidophilus/Fos [Acidophilus Probiotic Tablet] 1 cap PO DAILY 06/17 [History] Lansoprazole [Prevacid] 15 mg PO DAILY 03/08/17 [History] Loratadine [Claritin] 10 mg PO DAILY 03/08/17 [History] Multivitamin [One Daily Multivitamin] 1 tab PO DAILY 03/08/17 [History] Enalapril Maleate [Vasotec] 10 mg PO DAILY 03/23/17 [History] Ostomy Adhesive [Coloplast Paste Strip] 1 each MC AD 03/23/17 [History] Saline Nasal [place] [[place] Nasal [place]] 1 spray NS AD 03/23/17 [History] Ertapenem [INVanz] 1,000 mg IVPB DAILY #16 vial 06/14/17 [Rx] Ipratropium/Albuterol Neb [Duoneb] 3 ml IH [id number] inh 06/14/17 [Rx] Omeprazole [PriLOSEC] 20 mg PO DAILY 08/25/17 [History] Allergies/Adverse Reactions: 3 Allergy/AdvReac Type Severity Reaction Status Date / Time adhesive Allergy Blister Verified 08/24/17 19:24 Amoxicillin Allergy Hives Verified 08/24/17 19:24 Oxaprozin [From Daypro] AdvReac Diarrhea Verified 08/24/17 19:24 Date of admission: 08/24/17 23:48 Primary care physician: Maria Elena An Consults: 08/25/17 00:25 Consult to Wound Care [CONS] Routine Reason for Consult: open LLE wounds Call Completed: No 08/25/17 16:18 Consult to Invasive Line Access Team [CONS] Routine Reason for Consult: Limited vascular access, will need IV antibiotics Line Type: EPIV 08/25/17 16:27 Consult to Infectious Diseases [CONS] Routine Consulting Provider: Infectious Disease Yan[place] Reason for Consult: Left leg cellulitis, poor hygiene, h/o- ESBL wound infections Call Completed: No 08/26/17 05:14 Consult to Oven Heater Helper [CONS] Routine Reason for SW Consult: From home with sister and brother; unable to care for self well; pt states HH that comes to house just "sits around and talks"; Pt wants D/C to ECF 08/26/17 11:38 Consult to Physical Therapy [CONS] Routine Comment: Evaluate, develop and implement POC Reason for Consult: discharge planning OT [Consult to Occupational Therapy] [CONS] Routine Comment: Evaluate, develop and implement POC Reason for Consult: discharge planning Discharging clinician: Vivian Castillo Anticipated date of discharge: 08/29/17 - Patient Status Disposition: Transfer SNF Condition: Good Functional capacity at discharge: wheelchair bound Overall status at discharge: patient is progressing back to baseline - Discharge Instructions Follow Up With: Maria Elena An MD [Primary Care Provider] - - Diet and Activity Activity: as per physical therapy Diet: diabetic diet Interval History: Seen and examined at bedside. Family at bedside and updated as well. Patient is agreeable to go to SNF for wound care if [facility] is [facility]. Says he is overall feeling better and feels like left leg is significantly improved. No chest pain, no shortness of breath. Wound care planning on changing her ostomy system this afternoon. Hospital course: See assessment and plan for hospital course - Time Spent with Patient Total time spent providing and/or coordinating discharge services: - Constitutional Vitals: Temp Pulse Resp BP Pulse Ox 97.7 F 111 15 118/83 100 08/29/17 11:21 08/29/17 11:21 08/29/17 11:21 08/29/17 11:21 08/29/17 11:21 General appearance: Present: cooperative, A&O X 3, morbidly obese, no acute distress, answers questions appropriately - Head Head exam: Present: atraumatic, normocephalic - Eye Eye exam: Present: PERRL, conjuntiva pink, sclera anicteric Pupils: Present: PERRL - Neck Neck exam general surgery: Present: supple, trachea midline. Absent: lymphadenopathy - Respiratory Respiratory exam: Present: CTAB. Absent: accessory muscle use, rales, rhonchi, wheezes - Cardiovascular Cardiovascular exam: Present: RRR, +S1, +S2. Absent: diastolic murmur, gallop, rubs, systolic murmur - GI/Abdominal GI/Abdominal exam: Present: normal bowel sounds, soft, no peritoneal signs. Absent: distended, tenderness Additional comments: Right upper quadrant urostomy - Extremities Exam Extremities exam: Present: pedal edema, warm, radial pulses palpable and symmetrical. Absent: calf tenderness, cyanotic Additional comments: Bilateral lower chimney edema. Left greater than right. Dressing to left lower leg clean dry and intact. Area not assessed - Neurological Exam Neurological exam: Present: CN II-XII intact, oriented X3, no focal deficits. Absent: pronater drift, facial droop, speech deficit - Skin Skin exam: Present: dry, intact
[2017-08-29 17:18] LABS: Bilirubin,Urine Negative (Negative); Blood,Urine Large (Negative); Clarity,Urine Cloudy (Clear); Color,Urine Yellow (Yellow); Glucose,Urine (UA) Normal (Normal); Ketones,Urine Negative (Negative); Leukocyte Esterase,Urine Small (Negative); Nitrite,Urine Negative (Negative); Protein,Urine 100 mg/dL (Neg-Trace); Urobilinogen,Urine Normal (Normal)
[2017-08-29 17:20] LABS: Bacteria,Urine None Seen per hpf (None-Few); Hyaline Casts,Urine Moderate per lpf (None-Few); RBC,Urine TNTC per hpf (0-3); Squamous Epithelial Cell,Urine None Seen per lpf (None-Few); WBC,Urine 15-30 per hpf (0-3)
[2017-08-30] MEDS: Ipratropium/Albuterol Neb 3 ML IH SCH ×4 (04:11→16:27)
[2017-08-30] MEDS: *HR* Heparin 5,000 UNIT/ML VIAL SQ SCH (05:40)
[2017-08-30 05:48] LABS: Hematocrit 37.1 % (37.5-50.1); Hemoglobin 11.3 g/dL (12.9-16.9); Mean Corpuscular HGB Conc 30.5 g/dL (31.6-35.5); Mean Corpuscular Hemoglobin 24.7 pg (28.0-33.3); Mean Corpuscular Volume 81.2 fL (83.0-100.0); Platelet Count 379 K/mcL (140-400); Red Blood Count 4.57 M/mcL (4.19-5.50); Red Cell Distribution Width 16.5 % (11.5-14.5)
[2017-08-30 06:04] LABS: Alanine Aminotransferase 29 Units/L (0-55); Albumin 3.1 g/dL (3.5-5.0); Albumin/Globulin Ratio 0.6 (1.1-2.2); Alkaline Phosphatase 85 Units/L (38-126); Aspartate Amino Transferase 27 Units/L (5-34); BUN/Creatinine Ratio 19 (6-26); Bilirubin,Total 0.6 mg/dL (0.2-1.2); Blood Urea Nitrogen 21 mg/dL (8-26); Calcium 9.6 mg/dL (8.6-10.8); Carbon Dioxide 27 mEq/L (19-29); Chloride 95 mEq/L (98-109); Glucose 136 mg/dL (70-99); Osmolality,Calculated 285 (280-300); Potassium 3.7 mEq/L (3.5-4.5); Sodium 135 mEq/L (136-145); Total Protein 8.1 g/dL (6.0-8.3); eGFR For African Americans > 60 (> 60); eGFR For Non-African Americans > 60 (> 60)
[2017-08-30] MEDS: Beclomethasone 80mcg MDI IH SCH (07:52)
[2017-08-30] MEDS: Fluticasone Propionate Nasal 50 MCG/SPRAY BOTTLE NS SCH (09:00)
[2017-08-30] MEDS: Levofloxacin 750 MG/150 ML 750 MG/150 ML BAG IVPB SCH (09:40)
[2017-08-30] MEDS: Magnesium Oxide 400 MG TABLET PO SCH (09:40)
[2017-08-30] MEDS: Lactobacillus 1 EACH CAP.SPRINK PO SCH (09:40)
[2017-08-30] MEDS: Cholecalciferol (D-3) 1,000 UNIT TABLET PO SCH (09:40)
[2017-08-30] MEDS: Loratadine 10 MG TABLET PO SCH (09:40)
[2017-08-30] MEDS: Furosemide 40 MG/4 ML VIAL IVP SCH (09:41)
--- NOTE | 2017-08-30 11:52 | Physician Discharge Referral ---
<Li Fiore - Last Filed: 08/30/17 11:50> Extended[facility] Referral Info Transfer To: Esthela Shepard Provider in Charge after Transfer: PCP Institutional Level of Care: Intermediate - Diagnosis (1) Cellulitis of left lower extremity Status: Acute (2) UTI (urinary tract infection) Status: Acute (3) Bladder cancer Status: Acute (4) Acute diastolic heart failure Status: Acute (5) Spina bifida Status: Chronic (6) Sepsis Status: Resolved - Transfer Medications Prescriptions: Doxycycline 100 mg PO BID 5 Days #10 capsule Ertapenem [INVanz] 1,000 mg IVPB DAILY #16 vial Furosemide [Lasix] 40 mg PO BID 7 Days #14 tablet Furosemide [Lasix] 40 mg PO DAILY 7 Days #7 tablet Potassium Chloride 10 meq PO DAILY 7 Days #7 tab.er.prt Home Medications: Fluticasone Propionate Nasal [Flonase] 50 mcg NS DAILY 11/21/15 [History] Potassium Chloride 60 meq PO BID 11/21/15 [History] Rosuvastatin [Crestor] 20 mg PO HS 11/21/15 [History] Cholecalciferol (Vitamin D3) [Vitamin D3] 5,000 unit PO DAILY 11/12/16 [History] Fluticasone Propionate [Flovent Hfa] 2 puff IH BID 11/12/16 [History] Levothyroxine [Synthroid] 200 mcg PO DAILY 11/12/16 [History] Budesonide [Pulmicort Flexhaler 180mcg] 1 puff IH BID 03/08/17 [History] Lactobacillus Acidophilus/Fos [Acidophilus Probiotic Tablet] 1 cap PO DAILY 06/17 [History] Lansoprazole [Prevacid] 15 mg PO DAILY 03/08/17 [History] Loratadine [Claritin] 10 mg PO DAILY 03/08/17 [History] Multivitamin [One Daily Multivitamin] 1 tab PO DAILY 03/08/17 [History] Enalapril Maleate [Vasotec] 10 mg PO DAILY 03/23/17 [History] Ostomy Adhesive [Coloplast Paste Strip] 1 each MC AD 03/23/17 [History] Saline Nasal [place] [[place] Nasal [place]] 1 spray NS AD 03/23/17 [History] Ipratropium/Albuterol Neb [Duoneb] 3 ml IH [id number] inh 06/14/17 [Rx] Omeprazole [PriLOSEC] 20 mg PO DAILY 08/25/17 [History] Doxycycline 100 mg PO BID 5 Days #10 capsule 08/30/17 [Rx] Ertapenem [INVanz] 1,000 mg IVPB DAILY #16 vial 08/30/17 [Rx] Furosemide [Lasix] 40 mg PO BID 7 Days #14 tablet 08/30/17 [Rx] Furosemide [Lasix] 40 mg PO DAILY 7 Days #7 tablet 08/30/17 [Rx] Potassium Chloride 10 meq PO DAILY 7 Days #7 tab.er.prt 08/30/17 [Rx] Allergies/Adverse Reactions: 3 Allergy/AdvReac Type Severity Reaction Status Date / Time adhesive Allergy Blister Verified 08/24/17 19:24 Amoxicillin Allergy Hives Verified 08/24/17 19:24 Oxaprozin [From Daypro] AdvReac Diarrhea Verified 08/24/17 19:24 - Respiratory Orders None Smoking Cessation: Smoking cessation has been advised. For more information, call the [email or web address] Quit Line at 3-990-XXDD-NOW. - Advance Directives Code Status: Full Code - Mobility Orders Ambulate - Rehabiliation Orders Rehab Potential: Fair - Diet Orders Regular CERTIFICATION: I certify that the transfer of the above named patient to an Extended Care Facility is necessary for the continuing treatment of the diagnosis listed. The above information is true and accurate reflection of patient's current condition. Confidential - Redisclosure prohibited without a patient's written consent. <Sarath Maciel H - Last Filed: 08/30/17 16:53> - Respiratory Orders Smoking Cessation: Smoking cessation has been advised. For more information, call the [employer] Line at 3-137-DESI-ODG. CERTIFICATION: I certify that the transfer of the above named patient to an Extended Care Facility is necessary for the continuing treatment of the diagnosis listed. The above information is true and accurate reflection of patient's current condition. Confidential - Redisclosure prohibited without a patient's written consent. Discharge on Invanz for 2 more weeks due to Proteus in urine Use oral doxycycline for 5 more days for left lower extremity acute cellulitis I examined this patient and my medical decision-making was reviewed with the Resident Physician. I agree with the documented findings, disposition and treatment plan as described except to the extent set forth below.
[2017-08-30 12:15] VITALS: BP 101/68
--- NOTE | 2017-08-30 13:27 | Internal Med Progress Note ---
<Li Fiore - Last Filed: 08/30/17 13:24> Date of Encounter: 08/30/17 Time of Encounter: 11:00 - Assessment and plan (1) Cellulitis of left lower extremity Current Visit: Yes Status: Acute Assessment and plan: On the left lower extremity. Initially treated with IV Vancomycin and Ertapenem then Wound culture with Proteus mirabilis however ID suspects polymicrobial so Ertapenem was stopped and Levaquin started. -Urine culture showed resistance to Levaquin. -The patient has a Powerglide -Discharge with oral doxycycline and IV Ertapenem. Continue with local wound care and treatment at short-term nursing facility -follow up with PCP (2) UTI (urinary tract infection) Current Visit: Yes Status: Acute Assessment and plan: Causative organism on urine culture revealed Proteus Mirabilis and E. coli, -sensitive and treated with Ertapenem Qualifiers: Urinary tract infection type: site unspecified Hematuria presence: without hematuria Qualified Code(s): N39.0 - Urinary tract infection, site not specified (3) Bladder cancer Current Visit: Yes Status: Acute Assessment and plan: per hx with subsequent urostomy development. Has had long-standing issues with urostomy including stoma retraction, required revision at the [facility]. Now with chronic, nonhealing peristomal ulcers. Previously evaluated by general surgery 11/2015 who noted wounds not likely to heal unless urine is diverted from wound; Gray catheter diversion attempted at that time and failed. Discussed with international manager who is very familiar with patient; she is optimistic that. He stomal wounds have a good chance of healing with appropriate wound care. -Patient will be discharged and transferred to SNF for wound care Qualifiers: Qualified Code(s): C67.9 - Malignant neoplasm of bladder, unspecified (4) Acute diastolic heart failure Current Visit: No Status: Acute Assessment and plan: He was reported to have fluid overload on admission and was he was diuresed with IV Lasix 06/2017 TTE with EF 60% and evidence of diastolic dysfunction. -Will send at discharge with him low-dose Lasix and potassium supplement (5) Spina bifida Current Visit: Yes Status: Chronic Assessment and plan: Patient has a history of spina bifida The patient and nurse reported that he has multiple decubitus ulcers on left thigh and leg. -due to wheelchair and poor hygiene -wound care following -oral antibiotics of doxycycline Qualifiers: Spinal region: lumbosacral Presence of hydrocephalus: unspecified hydrocephalus presence Qualified Code(s): Q05.7 - Lumbar spina bifida without hydrocephalus - Subjective Interval history: -Today the patient was evaluated and stated a marked improvement in his leg swelling and pain. He has no complaints at this time. He denied chest pain, shortness of breath, cough, fever, chills, abdominal pain, nausea, vomiting. -He inquired of where he will be going for rehabilitation and care for his legs. -He has been accepted and placement in [place] at [facility]. - Constitutional Vitals: Temp Pulse Resp BP Pulse Ox 98.4 F 84 15 101/68 95 08/30/17 12:13 08/30/17 12:13 08/30/17 12:13 08/30/17 12:13 08/30/17 12:13 General appearance: Present: cooperative, A&O X 3, morbidly obese, no acute distress, answers questions appropriately Exam: Physical exam: Gen.: Vitals noted. No acute distress. AAOx3 HEENT: oropharynx clear, Normocephalic, atraumatic Neck: Supple. No adenopathy. 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 Internal Medicine: Result - Labs CBC & Chem 7: 08/30/17 05:29 08/30/17 05:29 Labs: Short CBC 08/30/17 Range/Units 05:29 WBC 13.1 H (4.3-11.1) K/mcL Hgb 11.3 L (12.9-16.9) g/dL Hct 37.1 L (37.5-50.1) % Plt Count 379 (140-400) K/mcL BMP 08/30/17 05:29 Sodium 135 L Potassium 3.7 Chloride 95 L Carbon Dioxide 27 BUN 21 Creatinine 1.09 Glucose 136 H Calcium 9.6 Liver Function 09/29/17 Range/Units 05:29 Total Bilirubin 0.6 (0.2-1.2) mg/dL AST 27 (5-34) Units/L ALT 29 (0-55) Units/L Alkaline Phosphatase 85 (38-126) Units/L Albumin 3.1 L (3.5-5.0) g/dL Urine 08/29/17 Range/Units 15:25 Urine Color Yellow (Yellow) Urine Clarity Cloudy A (Clear) Urine pH 7.0 (5.0-8.0) pH Units Ur Specific [place] 1.020 (1.010-1.025) Urine Protein 100 H (Neg-Trace) mg/dL Urine Glucose (UA) Normal (Normal) mg/dL Consult Discharge Plan - Plan Additional Instructions: Take medications as prescribed. Go to scheduled follow-up appointment. Monitor wounds. If wounds worsen or symptoms that brought you in, return. Go to ER. Referrals: Maria Elena An MD [Primary Care Provider] - 09/10/17 1:45 pm Prescriptions: Doxycycline 100 mg PO BID 5 Days #10 capsule Ertapenem [INVanz] 1,000 mg IVPB DAILY #16 vial Furosemide [Lasix] 40 mg PO BID 7 Days #14 tablet Furosemide [Lasix] 40 mg PO DAILY 7 Days #7 tablet Potassium Chloride 10 meq PO DAILY 7 Days #7 tab.er.prt <SuejaySarath carter H - Last Filed: 08/30/17 16:53> Date of Encounter: 08/30/17 - Constitutional Vitals: Temp Pulse Resp BP Pulse Ox 98.4 F 84 15 101/68 95 08/30/17 12:13 08/30/17 12:13 08/30/17 12:13 08/30/17 12:13 08/30/17 12:13 Internal Medicine: Result - Labs CBC & Chem 7: 08/30/17 05:29 08/30/17 05:29 Labs: Short CBC 08/30/17 Range/Units 05:29 WBC 13.1 H (4.3-11.1) K/mcL Hgb 11.3 L (12.9-16.9) g/dL Hct 37.1 L (37.5-50.1) % Plt Count 379 (140-400) K/mcL BMP 08/30/17 05:29 Sodium 135 L Potassium 3.7 Chloride 95 L Carbon Dioxide 27 BUN 21 Creatinine 1.09 Glucose 136 H Calcium 9.6 Liver Function 08/30/17 Range/Units 05:29 Total Bilirubin 0.6 (0.2-1.2) mg/dL AST 27 (5-34) Units/L ALT 29 (0-55) Units/L Alkaline Phosphatase 85 (38-126) Units/L Albumin 3.1 L (3.5-5.0) g/dL Urine 08/29/17 Range/Units 15:25 Urine Color Yellow (Yellow) Urine Clarity Cloudy A (Clear) Urine pH 7.0 (5.0-8.0) pH Units Ur Specific [place] 1.020 (1.010-1.025) Urine Protein 100 H (Neg-Trace) mg/dL Urine Glucose (UA) Normal (Normal) mg/dL - Attending Attestation Discharge on Invanz for 2 more weeks due to Proteus in urine Use oral doxycycline for 5 more days for left lower extremity acute cellulitis I examined this patient and my medical decision-making was reviewed with the Resident Physician. I agree with the documented findings, disposition and treatment plan as described except to the extent set forth below.
[2017-08-30] MEDS: Vancomycin 1,250 MG in D5% in Water 250 ML IVPB SCH (13:29)
[2017-08-30] MEDS ORDERED: FLUARIX QUAD 2017-18 36MOS UP/PF 0.5 ML SYRINGE IM ONE (13:36)
[2017-08-30] MEDS ORDERED: Aminoglycoside Consult 1 EACH MC ONE (17:10)
== END 2017-08-30 17:11 | DRG 871 ==
LOC: EMEROO 19:11 → 3NENU 19:11 → SUATTDRO 23:48 → 3ANU 08-26 02:06
PROVIDERS: ADMIT Internal Medicine; ATTEND Internal Medicine

== ENCOUNTER 2017-11-13 21:58 | Inpatient (IN) ==
[2017-11-13 22:37] LABS: Basophils # 0.1 K/mcL (0.0-0.2); Basophils % 0.8 %; Eosinophils # 0.7 K/mcL (0.0-0.6); Hematocrit 39.4 % (37.5-50.1); Hemoglobin 12.2 g/dL (12.9-16.9); Immature Granulocytes % 0.4 % (0-4); Lymphocytes # 2.7 K/mcL (0.6-4.6); Lymphocytes % 18.5 %; Mean Corpuscular Hemoglobin 25.1 pg (28.0-33.3); Mean Corpuscular Volume 80.9 fL (83.0-100.0); Mean Platelet Volume 10.5 fL (9.4-12.4); Monocytes # 1.1 K/mcL (0.0-1.3); Monocytes % 7.7 %; Neutrophils # 9.8 K/mcL (1.6-8.9); Platelet Count 471 K/mcL (140-400); Red Blood Count 4.87 M/mcL (4.19-5.50); Red Cell Distribution Width 16.3 % (11.5-14.5); Segmented Neutrophils % 67.6 %
[2017-11-13 22:39] LABS: Bilirubin,Urine Small (Negative); Blood,Urine Moderate (Negative); Clarity,Urine Turbid (Clear); Color,Urine Yellow (Yellow); Glucose,Urine (UA) Normal (Normal); Ketones,Urine Negative (Negative); Leukocyte Esterase,Urine Small (Negative); Nitrite,Urine Positive (Negative); PH,Urine 8.5 pH Units (5.0-8.0); Protein,Urine 30 mg/dL (Neg-Trace); Urobilinogen,Urine Normal (Normal)
[2017-11-13 22:42] LABS: Bacteria,Urine Many per hpf (None-Few); RBC,Urine 15-30 per hpf (0-3); Squamous Epithelial Cell,Urine Many per lpf (None-Few); WBC,Urine 30-50 per hpf (0-3)
[2017-11-13 22:44] LABS: INR 1.2; Prothrombin Time 12.9 Seconds (9.4-12.1)
[2017-11-13 22:52] LABS: Alanine Aminotransferase 19 Units/L (0-55); Albumin 3.2 g/dL (3.5-5.0); Albumin/Globulin Ratio 0.6 (1.1-2.2); Alkaline Phosphatase 101 Units/L (38-126); Aspartate Amino Transferase 16 Units/L (5-34); BUN/Creatinine Ratio 11 (6-26); Bilirubin,Direct 0.3 mg/dL (0.0-0.5); Bilirubin,Indirect 0.3 mg/dL (0.0-1.2); Bilirubin,Total 0.6 mg/dL (0.2-1.2); Blood Urea Nitrogen 12 mg/dL (8-26); Calcium 9.9 mg/dL (8.6-10.8); Carbon Dioxide 24 mEq/L (19-29); Chloride 101 mEq/L (98-109); Globulin 5.5 g/dL (2.4-3.5); Glucose 114 mg/dL (70-99); Hyaline Casts,Urine Few per lpf (None-Few); Osmolality,Calculated 285 (280-300); Potassium 3.2 mEq/L (3.5-4.5); Sodium 137 mEq/L (136-145); Total Protein 8.7 g/dL (6.0-8.3); Triple Phosphate Crystal,Urine Present; eGFR For African Americans > 60 (> 60); eGFR For Non-African Americans > 60 (> 60)
[2017-11-13 22:54] LABS: Calcium Oxalate Crystals,Urine Present
[2017-11-13 22:56] LABS: Mucus,Urine Few (Few)
[2017-11-13] MEDS ORDERED: 0.9 % Sodium Chloride 1,000 ML IVC ONE (23:05)
--- NOTE | 2017-11-13 23:14 | Emergency Department Note ---
Disposition Clinical Impression: Chronic wound of extremity, Bacterial conjunctivitis of left eye UTI (urinary tract infection) Qualifiers: Urinary tract infection type: site unspecified Hematuria presence: without hematuria Qualified Code(s): N39.0 - Urinary tract infection, site not specified Nausea and vomiting Qualifiers: Vomiting type: unspecified Disposition: Admitted As Inpatient Condition: Good Referrals: Jaun Price MD [Primary Care Provider] - Forms: ED Satisfaction Letter General Adult HPI - General Chief complaint: ED Upper Respiratory Infection Stated complaint: cough,possible UTI Time Seen by Provider: 11/13/17 22:06 Source: patient, EMS Limitations: no limitations Nursing Notes Reviewed: Yes Vital Signs Reviewed: Yes - History of Present Illness HPI Narrative: 47-year-old male with past medical history of diabetes, CHF, bladder cancer with urostomy, chronic wound on the lower extremity. He presents with URI-type symptoms with nasal congestion, occasional cough, left eye pain and itching. He also admits that the wound on his left lower extremity has some drainage. In addition he notes that his urine is a different color than it was before. He also admits to some nausea when he eats or drinks. Due to this he has not been eating or drinking as much as he feels like he should. He denies having a fever. He denies a productive cough. He denies orthopnea. Pain Scale: 0 Improves with: nothing Worsens with: nothing Associated symptoms: Reports: denies other symptoms Treatments Prior to Arrival: none - Related Data Home Medications Medication Instructions Recorded Confirmed Fluticasone Propionate Nasal 50 mcg NS DAILY 11/21/15 08/25/17 [Flonase] Potassium Chloride 60 meq PO BID 11/21/15 08/25/17 Rosuvastatin [Crestor] 20 mg PO HS 11/21/15 08/25/17 Cholecalciferol (Vitamin D3) 5,000 unit PO DAILY 11/12/16 08/25/17 [Vitamin D3] Fluticasone Propionate [Flovent 2 puff IH BID 11/12/16 08/25/17 Hfa] Levothyroxine [Synthroid] 200 mcg PO DAILY 11/12/16 08/25/17 Budesonide [Pulmicort Flexhaler 1 puff IH BID 03/08/17 08/25/17 180mcg] Lactobacillus Acidophilus/Fos 1 cap PO DAILY 03/08/17 08/25/17 [Acidophilus Probiotic Tablet] Lansoprazole [Prevacid] 15 mg PO DAILY 03/08/17 08/25/17 Loratadine [Claritin] 10 mg PO DAILY 03/08/17 08/25/17 Multivitamin [One Daily 1 tab PO DAILY 03/08/17 08/25/17 Multivitamin] Enalapril Maleate [Vasotec] 10 mg PO DAILY 03/23/17 08/25/17 Ostomy Adhesive [Coloplast Paste 1 each MC AD 03/23/17 08/25/17 Strip] Saline Nasal [place] [[place] Nasal 1 spray NS AD 03/23/17 08/25/17 [place]] Omeprazole [PriLOSEC] 20 mg PO DAILY 08/25/17 08/25/17 Previous Rx's Medication Instructions Recorded Ipratropium/Albuterol Neb [Duoneb] 3 ml IH [id number] inh 06/14/17 Doxycycline 100 mg PO BID 5 Days #10 capsule 08/30/17 Ertapenem [INVanz] 1,000 mg IVPB DAILY #16 vial 08/30/17 Furosemide [Lasix] 40 mg PO BID 7 Days #14 tablet 08/30/17 Furosemide [Lasix] 40 mg PO DAILY 7 Days #7 tablet 08/30/17 Potassium Chloride 10 meq PO DAILY 7 Days #7 08/30/17 tab.er.prt Allergies Allergy/AdvReac Type Severity Reaction Status Date / Time adhesive Allergy Blister Verified 11/13/17 22:05 Amoxicillin Allergy Hives Verified 11/13/17 22:05 Oxaprozin [From Daypro] AdvReac Diarrhea Verified 11/13/17 22:05 All systems ED: reviewed and negative except as stated. Constitutional: Denies: fever Eyes: Reports: eye discharge Cardiovascular: Denies: chest pain Respiratory: Denies: dyspnea, wheezes Gastrointestinal: Reports: nausea. Denies: abdominal pain Musculoskeletal: Denies: back pain Integumentary: Reports: lesions. Denies: rash Past Medical History - Past Medical History Medical history: Reports: asthma, CHF, CVA, hyperlipidemia, hypertension, thyroid disease Surgical history: Reports: appendectomy, orthopedic, other, vasectomy, other Psychiatric history: Reports: depression - Social History Smoking Status: Never smoker Smokeless Tobacco Status: No Alcohol use: Reports: none Drug use: Reports: none Physical Exam - General Limitations: no limitations General appearance: alert - Head Head exam: atraumatic - Eye Eye exam: Present: EOMI, other (left eye conjunctivitis and discharge) - ENT ENT exam: normal exam, normal oropharynx - Chest Chest inspection: Present: normal inspection - Respiratory Respiratory exam: Present: normal lung sounds bilaterally. Absent: respiratory distress - Cardiovascular Cardiovascular exam: Present: normal rhythm, tachycardia - Abdominal Exam Abdominal exam: Present: soft, Non-Tender, other (urostomy is present. Darker urine. No flank pain or abdominal pain.) - Extremities Exam Extremities exam: Present: other (Bilateral chronic LE edema.) - Neurological Exam Neurological exam: Present: alert, oriented X3 - Psychiatric Psychiatric exam: Present: normal affect, normal mood - Skin Skin exam: Present: warm, dry Course Course Narrative: He has significant comorbid medical conditions and has what IV was symptomatic urinary tract infection due to the nausea and vomiting and change in urine color and consistency. Due to this I will start him. Antibiotics. He is concerned that he cannot take his oral medications at home due to the nausea and vomiting and so we will admit him for IV antibiotics. I did a CT scan of the abdomen which does not show an acute process. He does have tachycardia but he chronically has tachycardia at every admission to the hospital. When he is discharged his heart rate is still elevated. It is not elevated from baseline of about 110. He does have mildly elevated white blood cell count. His lactate was mildly elevated so I did give him 1 L of normal saline. He is very well appearing. Vital Signs Temperature 98.1 F 11/13/17 22:00 Pulse Rate 114 11/13/17 22:00 Respiratory Rate 18 11/13/17 22:00 Blood Pressure 135/80 11/13/17 22:00 O2 Sat by Pulse Oximetry 98 11/13/17 22:00 Temperature 98.1 F 11/13/17 22:00 Pulse Rate 87 11/13/17 23:59 Respiratory Rate 12 11/13/17 23:59 Blood Pressure 113/87 11/13/17 23:59 O2 Sat by Pulse Oximetry 99 11/13/17 22:57 Oxygen Delivery Oxygen Delivery Room Air Medical Decision Making - Medical Records Medical records reviewed: Yes I reviewed the patient's medical records. - Lab Data Lab results reviewed: Yes I reviewed the patient's lab results. Result diagrams: 11/13/17 22:20 11/13/17 22:20 Lab Results 11/13/17 11/13/17 11/13/17 Range/Units 22:20 22:20 22:20 WBC 14.5 H (4.3-11.1) K/mcL RBC 4.87 (4.19-5.50) M/mcL Hgb 12.2 L (12.9-16.9) g/dL Hct 39.4 (37.5-50.1) % MCV 80.9 L (83.0-100.0) fL MCH 25.1 L (28.0-33.3) pg MCHC 31.0 L (31.6-35.5) g/dL RDW 16.3 H (11.5-14.5) % Plt Count 471 H (140-400) K/mcL MPV 10.5 (9.4-12.4) fL Immature Gran % 0.4 (0-4) % Seg Neutrophils % 67.6 % Lymphocytes % 18.5 % Monocytes % 7.7 % Eosinophils % 5.0 % Basophils % 0.8 % Neutrophils # 9.8 H (1.6-8.9) K/mcL Lymphocytes # 2.7 (0.6-4.6) K/mcL Monocytes # 1.1 (0.0-1.3) K/mcL Eosinophils # 0.7 H (0.0-0.6) K/mcL Basophils # 0.1 (0.0-0.2) K/mcL PT 12.9 H (9.4-12.1) Seconds INR 1.2 Sodium (136-145) mEq/L Potassium (3.5-4.5) mEq/L Chloride (98-109) mEq/L Carbon Dioxide (19-29) mEq/L BUN (8-26) mg/dL Creatinine (0.72-1.25) mg/dL Est GFR ( Amer) (> 60) Est GFR (Non-Af Amer) (> 60) BUN/Creatinine Ratio (6-26) Glucose (70-99) mg/dL Calculated Osmolality (280-300) Lactic Acid (0.5-2.2) mmol/L Calcium (8.6-10.8) mg/dL Total Bilirubin (0.2-1.2) mg/dL Direct Bilirubin (0.0-0.5) mg/dL Indirect Bilirubin (0.0-1.2) mg/dL AST (5-34) Units/L ALT (0-55) Units/L Alkaline Phosphatase (38-126) Units/L Troponin I (0-0.03) ng/mL B-Natriuretic Peptide (0-100) pg/mL Serum Total Protein (6.0-8.3) g/dL Albumin (3.5-5.0) g/dL Globulin (2.4-3.5) g/dL Albumin/Globulin Ratio (1.1-2.2) Urine Color Yellow (Yellow) Urine Clarity Turbid A (Clear) Urine pH 8.5 H (5.0-8.0) pH Units Ur Specific [place] 1.020 (1.010-1.025) Urine Protein 30 H (Neg-Trace) mg/dL Urine Glucose (UA) Normal (Normal) mg/dL Urine Ketones Negative (Negative) mg/dL Urine Blood Moderate H (Negative) Urine Nitrite Positive A (Negative) Urine Bilirubin Small H (Negative) Urine Urobilinogen Normal (Normal) mg/dL Ur Leukocyte Esterase Small H (Negative) Urine Microscopic RBC 15-30 H (0-3) per hpf Urine Microscopic WBC 30-50 H (0-3) per hpf Ur Squamous Epith Cells Many H (None-Few) per lpf Calcium Oxalate Crystal Present Triple Phos Crystals Present Urine Bacteria Many H (None-Few) per hpf Hyaline Casts Few (None-Few) per lpf Urine Mucus Few (Few) Ur Culture Indicated? NO (NO) 11/13/17 11/13/17 11/13/17 Range/Units 22:20 22:20 22:20 WBC (4.3-11.1) K/mcL RBC (4.19-5.50) M/mcL Hgb (12.9-16.9) g/dL Hct (37.5-50.1) % MCV (83.0-100.0) fL MCH (28.0-33.3) pg MCHC (31.6-35.5) g/dL RDW (11.5-14.5) % Plt Count (140-400) K/mcL MPV (9.4-12.4) fL Immature Gran % (0-4) % Seg Neutrophils % % Lymphocytes % % Monocytes % % Eosinophils % % Basophils % % Neutrophils # (1.6-8.9) K/mcL Lymphocytes # (0.6-4.6) K/mcL Monocytes # (0.0-1.3) K/mcL Eosinophils # (0.0-0.6) K/mcL Basophils # (0.0-0.2) K/mcL PT (9.4-12.1) Seconds INR Sodium 137 (136-145) mEq/L Potassium 3.2 L (3.5-4.5) mEq/L Chloride 101 (98-109) mEq/L Carbon Dioxide 24 (19-29) mEq/L BUN 12 (8-26) mg/dL Creatinine 1.05 (0.72-1.25) mg/dL Est GFR ( Amer) > 60 (> 60) Est GFR (Non-Af Amer) > 60 (> 60) BUN/Creatinine Ratio 11 (6-26) Glucose 114 H (70-99) mg/dL Calculated Osmolality 285 (280-300) Lactic Acid 2.9 H (0.5-2.2) mmol/L Calcium 9.9 (8.6-10.8) mg/dL Total Bilirubin 0.6 (0.2-1.2) mg/dL Direct Bilirubin 0.3 (0.0-0.5) mg/dL Indirect Bilirubin 0.3 (0.0-1.2) mg/dL AST 16 (5-34) Units/L ALT 19 (0-55) Units/L Alkaline Phosphatase 101 (38-126) Units/L Troponin I 0.00 (0-0.03) ng/mL B-Natriuretic Peptide (0-100) pg/mL Serum Total Protein 8.7 H (6.0-8.3) g/dL Albumin 3.2 L (3.5-5.0) g/dL Globulin 5.5 H (2.4-3.5) g/dL Albumin/Globulin Ratio 0.6 L (1.1-2.2) Urine Color (Yellow) Urine Clarity (Clear) Urine pH (5.0-8.0) pH Units Ur Specific [place] (1.010-1.025) Urine Protein (Neg-Trace) mg/dL Urine Glucose (UA) (Normal) mg/dL Urine Ketones (Negative) mg/dL Urine Blood (Negative) Urine Nitrite (Negative) Urine Bilirubin (Negative) Urine Urobilinogen (Normal) mg/dL Ur Leukocyte Esterase (Negative) Urine Microscopic RBC (0-3) per hpf Urine Microscopic WBC (0-3) per hpf Ur Squamous Epith Cells (None-Few) per lpf Calcium Oxalate Crystal Triple Phos Crystals Urine Bacteria (None-Few) per hpf Hyaline Casts (None-Few) per lpf Urine Mucus (Few) Ur Culture Indicated? (NO) 11/13/17 Range/Units 22:20 WBC (4.3-11.1) K/mcL RBC (4.19-5.50) M/mcL Hgb (12.9-16.9) g/dL Hct (37.5-50.1) % MCV (83.0-100.0) fL MCH (28.0-33.3) pg MCHC (31.6-35.5) g/dL RDW (11.5-14.5) % Plt Count (140-400) K/mcL MPV (9.4-12.4) fL Immature Gran % (0-4) % Seg Neutrophils % % Lymphocytes % % Monocytes % % Eosinophils % % Basophils % % Neutrophils # (1.6-8.9) K/mcL Lymphocytes # (0.6-4.6) K/mcL Monocytes # (0.0-1.3) K/mcL Eosinophils # (0.0-0.6) K/mcL Basophils # (0.0-0.2) K/mcL PT (9.4-12.1) Seconds INR Sodium (136-145) mEq/L Potassium (3.5-4.5) mEq/L Chloride (98-109) mEq/L Carbon Dioxide (19-29) mEq/L BUN (8-26) mg/dL Creatinine (0.72-1.25) mg/dL Est GFR ( Amer) (> 60) Est GFR (Non-Af Amer) (> 60) BUN/Creatinine Ratio (6-26) Glucose (70-99) mg/dL Calculated Osmolality (280-300) Lactic Acid (0.5-2.2) mmol/L Calcium (8.6-10.8) mg/dL Total Bilirubin (0.2-1.2) mg/dL Direct Bilirubin (0.0-0.5) mg/dL Indirect Bilirubin (0.0-1.2) mg/dL AST (5-34) Units/L ALT (0-55) Units/L Alkaline Phosphatase (38-126) Units/L Troponin I (0-0.03) ng/mL B-Natriuretic Peptide < 10 (0-100) pg/mL Serum Total Protein (6.0-8.3) g/dL Albumin (3.5-5.0) g/dL Globulin (2.4-3.5) g/dL Albumin/Globulin Ratio (1.1-2.2) Urine Color (Yellow) Urine Clarity (Clear) Urine pH (5.0-8.0) pH Units Ur Specific [place] (1.010-1.025) Urine Protein (Neg-Trace) mg/dL Urine Glucose (UA) (Normal) mg/dL Urine Ketones (Negative) mg/dL Urine Blood (Negative) Urine Nitrite (Negative) Urine Bilirubin (Negative) Urine Urobilinogen (Normal) mg/dL Ur Leukocyte Esterase (Negative) Urine Microscopic RBC (0-3) per hpf Urine Microscopic WBC (0-3) per hpf Ur Squamous Epith Cells (None-Few) per lpf Calcium Oxalate Crystal Triple Phos Crystals Urine Bacteria (None-Few) per hpf Hyaline Casts (None-Few) per lpf Urine Mucus (Few) Ur Culture Indicated? (NO) - Radiology Data Radiology results reviewed: Yes I reviewed the patient's radiology results. Attestation Statement - Attestation Attestation: I examined this patient and my medical decision-making was reviewed with the Resident Physician. I agree with the documented findings, disposition and treatment plan as described except to the extent set forth below. Findings consistent with UTI with intractable nausea and vomiting. EKG shows ventricular rate of 103 bpm. Patient has a baseline of tachycardia. [place] is normal, intervals are normal, ST segments are nonspecific. Plan to admit for further evaluation of UTI
[2017-11-14] MEDS ORDERED: Piperacillin/Tazobactam 3.375 GM in Water for inj. (sterile) 20 ML IVP ONE (00:01)
[2017-11-14] MEDS: Gatifloxacin OPTH Drops 2.5 mL BOTTLE LEFT EYE SCH ×10 (00:21→23:45)
[2017-11-14] MEDS ORDERED: Acetaminophen 325 MG TABLET PO PRN (02:07)
[2017-11-14] MEDS ORDERED: Ondansetron 4 MG/2 ML VIAL IVP PRN (02:07)
--- NOTE | 2017-11-14 02:52 | Internal Med History&Physical ---
<ViolayangyulisaGuilherme boateng - Last Filed: 11/14/17 04:51> Date of Encounter: 11/14/17 Time of Encounter: 02:15 Assessment and Plan (1) Sepsis Current visit: No Status: Acute Patient meets sepsis criteria: (1) HR of 114 (2) WBC count of 14.5. (3) Lactate of 2.9. (4) Suspected source from cellulitis. - Blood culture pending. - Trending lactic acid levels. - On meropenem and vancomycin. - BP is normotensive at 135/80. Patient has bilateral LE edema. IV fluids not recommended at this time. Oral hydration only. Qualifiers: Sepsis type: sepsis due to unspecified organism Qualified Code(s): A41.9 - Sepsis, unspecified organism (2) Cellulitis Current visit: No Status: Chronic Chronic cellulitis of L posterior thigh for the past 4 months. Signs of bleeding , pus, and drainage. Previous culture positive for proteus mirabilis. History or MRSA infection. - Wound care. - Consult to surgery for debridement evaluation. - Meropenem 1 g IV q8h - Vancomycin 1250 mg IV q12h - Blood culture pending. - Wound culture pending. Qualifiers: Site of cellulitis: extremity Site of cellulitis of extremity: lower extremity Laterality: left Qualified Code(s): L03.116 - Cellulitis of left lower limb (3) Viral conjunctivitis of left eye Current visit: Yes Status: Acute - Artificial tears PRN. (4) Abdominal pain, vomiting, and diarrhea Current visit: Yes Status: Acute Patient is complaining of watery non-bloody diarrhea. He denies any change in his diet. Profuse vomiting. Frequent coughing. Diffuse abdominal pain. He denies any recent travel. He does admit to recent antibiotic use. Recent onset of viral conjuctivits with contact with a sick person. His symptoms seem most likely secondary to viral gastroenteritis, however C.Diff is also another possibility due to patient being recently discharged from skilled nursing and recent antibiotic use. - C.Diff assay. - OVA/Parasite exam. - Oral hydration. - Zofran PRN. (5) UTI (urinary tract infection) Current visit: Yes Status: Acute UA was positive for blood, LE, and WBCs. Patient claims to have change in color of urine. Positive CVA tenderness on the R. Patient has a history of recurrent UTIs. Hisotry of MRSA infection. - Urine culture pending. - Meropenem. - Vancomycin. Qualifiers: Urinary tract infection type: site unspecified Hematuria presence: without hematuria Qualified Code(s): N39.0 - Urinary tract infection, site not specified (6) Bilateral lower extremity edema Current visit: Yes Status: Acute Venous duplex (08/06/17): Normal right lower extremity deep and superficial venous exam. Normal left lower extremity deep venous exam. Chronic superficial venous thrombosis is present in the left lesser saphenous vein. LE arterial study (08/08/17): The bilateral lower extremities are hemodynamically well maintained. The right JUAN DIEGO and waveforms are normal. Right JUAN DIEGO 1.16. The left JUAN DIEGO and waveforms are normal. Left JUAN DIEGO: 1.12. Patient has history of CHF, however his last echocardiogram in 2017 shows an EF of 60%. He had no JVD on exam. Slightly decreased serum albumin. Urinary protein level unremarkable. His edema seems to be a chronic issue which could be contributed by his sedentary life-style, obesity, hypothyroidism, and diabetes. Can be currently exacerbated by his cellulitis. Due to patient's slightly low volume status secondary to diarrhea and vomitting, I will hold off on the lasix for now. - Keep legs elevated. (7) Hypokalemia Current visit: Yes Status: Acute Potassium level at 3.2. Likely due to vomiting. - KCL 40 meq PO. (8) Hypothyroidism Current visit: No Status: Chronic - Continue home medication of Synthroid. Qualifiers: Hypothyroidism type: unspecified Qualified Code(s): E03.9 - Hypothyroidism , unspecified (9) Bladder cancer Current visit: No Status: Acute Qualifiers: Qualified Code(s): C67.9 - Malignant neoplasm of bladder, unspecified (10) GERD (gastroesophageal reflux disease) Current visit: No Status: Chronic - Continue home medication of prilosec. Qualifiers: Esophagitis presence: esophagitis presence not specified Qualified Code(s) : K21.9 - Gastro-esophageal reflux disease without esophagitis (11) History of urostomy Current visit: No Status: Chronic (12) Hyperlipidemia Current visit: No Status: Chronic - Continue home medication of crestor. Qualifiers: Hyperlipidemia type: unspecified Qualified Code(s): E78.5 - Hyperlipidemia , unspecified (13) Morbid obesity with BMI of 40.0-44.9, adult Current visit: No Status: Chronic - Nutrition consult. (14) Type 2 diabetes mellitus Current visit: Yes Status: Chronic Glucose level at 114. Patient says his blood glucose is controlled. Denies checking level on regular basis. - A1 check. Qualifiers: Diabetes mellitus complication status: with unspecified complications Diabetes mellitus terminal operations supervisor insulin use: without terminal operations supervisor use Qualified Code( s): E11.8 - Type 2 diabetes mellitus with unspecified complications (15) DVT prophylaxis Current visit: Yes Status: Acute - SCDs. Internal Medicine - H&P: HPI Chief complaint: Nausea, vomiting, abdominal pain Admitted From: Emergency Dept History of present illness: Mr. Leone is a 47 year old male with a PMH of spina bifida, CHF, CVA, HTN, hypothyroidism, type II DM, bladder CA with a PSHx of a urostomy that presents for nausea, vomiting, and abdominal pain. Patient says his symptoms started 4-5 days ago. He would experience diffuse abdominal cramps after he would eat and would experience frequent diarrhea. He is unsure of any blood in his stool. He rates his abdominal pain as a 2/10 in severity, no radiation, and would only come about after eating. He admits to nausea and vomiting, but he denies any hematemesis. Patient is also here because of a chronic wound in the back of his L thigh. He says he was in a skilled nursing for the past 4 months due to the wound. He was discharged home 2 weeks ago and his wound seemed to be healing, but now he cites bleeding, pus, and drainage from it. He denies any fever. He admits to a dry cough. Denies hemoptysis. Patient also is complaining of a pink eye in his L eye. He claims his cousin was sick and probably became infected from him. This also started about 4-5 days ago. He denies any recent change in his diet. He is also complaining of a color change in his urine to dark orange. Patient has had a urostomy done, with the stoma in place oh his R side. Past Med Surg Social Fam HX - Past Medical History Medical history: asthma, CHF, CVA, hyperlipidemia, hypertension, thyroid disease Psychiatric history: depression - Past Surgical History Surgical History: appendectomy, orthopedic, other, vasectomy, other - Social History Smoking Status: Never smoker Smokeless Tobacco Status: No Alcohol use: none Drug use: none - Family History Mother Family Member Ethnicity: Non- Living Status: Still Living Hx Family Cardiac Disorders: Yes (HTN) Hx Family Endocrine Disorder: Yes (DM) Hx Family Neurologic Disorders: Yes (Dementia) Sister Family Member Ethnicity: Non- Living Status: Still Living Hx Family Cardiac Disorders: Yes (HTN) Hx Family Endocrine Disorder: Yes (DM, thyroid) Brother Family Member Ethnicity: Non- Living Status: Still Living Hx Family Cardiac Disorders: Yes (HTN) Father Family Member Ethnicity: Non- Living Status: Hx Family Cardiac Disorders: Yes (CHF, HTN) Hx Family Respiratory Disorders: Yes (Asthma, emphysema) Hx Family Cancer: Yes (Lung) Hx Family GI Disorders: No Hx Family Endocrine Disorder: Yes Hx Family Neuromuscular Disorders: No Hx Family Neurologic Disorders: No Hx Family HEENT Disorders: No Hx Family Autoimmune Disorders: No Internal Medicine - H&P: Meds Fluticasone Propionate Nasal [Flonase] 50 mcg NS DAILY 11/21/15 [History] Potassium Chloride 60 meq PO BID 11/21/15 [History] Rosuvastatin [Crestor] 20 mg PO HS 11/21/15 [History] Cholecalciferol (Vitamin D3) [Vitamin D3] 5,000 unit PO DAILY 11/12/16 [History] Fluticasone Propionate [Flovent Hfa] 2 puff IH BID 11/12/16 [History] Levothyroxine [Synthroid] 200 mcg PO DAILY 11/12/16 [History] Budesonide [Pulmicort Flexhaler 180mcg] 1 puff IH BID 03/08/17 [History] Lactobacillus Acidophilus/Fos [Acidophilus Probiotic Tablet] 1 cap PO DAILY 06/17 [History] Lansoprazole [Prevacid] 15 mg PO DAILY 03/08/17 [History] Loratadine [Claritin] 10 mg PO DAILY 03/08/17 [History] Multivitamin [One Daily Multivitamin] 1 tab PO DAILY 03/08/17 [History] Enalapril Maleate [Vasotec] 10 mg PO DAILY 03/23/17 [History] Ostomy Adhesive [Coloplast Paste Strip] 1 each MC AD 03/23/17 [History] Saline Nasal [place] [[place] Nasal [place]] 1 spray NS AD 03/23/17 [History] Ipratropium/Albuterol Neb [Duoneb] 3 ml IH [id number] inh 06/14/17 [Rx] Omeprazole [PriLOSEC] 20 mg PO DAILY 08/25/17 [History] Doxycycline 100 mg PO BID 5 Days #10 capsule 08/30/17 [Rx] Ertapenem [INVanz] 1,000 mg IVPB DAILY #16 vial 08/30/17 [Rx] Furosemide [Lasix] 40 mg PO BID 7 Days #14 tablet 08/30/17 [Rx] Furosemide [Lasix] 40 mg PO DAILY 7 Days #7 tablet 08/30/17 [Rx] Potassium Chloride 10 meq PO DAILY 7 Days #7 tab.er.prt 08/30/17 [Rx] 3 Allergy/AdvReac Type Severity Reaction Status Date / Time adhesive Allergy Blister Verified 11/13/17 22:05 Amoxicillin Allergy Hives Verified 11/13/17 22:05 Oxaprozin [From Daypro] AdvReac Diarrhea Verified 11/13/17 22:05 All Systems PM: A 10-system review of systems was performed and is negative for pertinent findings except as documented above in the HPI. - Constitutional Constitutional: as per HPI - Constitutional Vitals: Temp Pulse Resp BP Pulse Ox 98.1 F 87 12 113/87 99 11/13/17 22:00 11/13/17 23:59 11/13/17 23:59 11/13/17 23:59 11/13/17 22:57 General appearance: Present: A&O X 3, morbidly obese, no acute distress, answers questions appropriately - Eye Eye exam: Present: conjuntiva pink (L eye. ) - Respiratory Respiratory exam: Present: CTAB. Absent: rhonchi, wheezes - Cardiovascular Cardiovascular exam: Present: RRR, +S1, +S2 - GI/Abdominal GI/Abdominal exam: Present: hyperactive bowel sounds, soft, tenderness (Mild diffuse tenderness. ). Absent: guarding, rebound Additional comments: Urostomy stoma on R upper abdominal quadrant. Stoma patent, intact, with no signs of bleeding or pus. - Expanded GI/Abdominal Exam GI/Abdominal exam expanded: Absent: Stringer's sign - Extremities Exam Extremities exam: Present: normal capillary refill, pedal edema (+2 bilateral pitting edema. ), warm, radial pulses palpable and symmetrical Additional comments: 2-3 cm wound on back of L upper thigh with signs of bleeding, pus, and drainage. No tenderness elicited upon palpation. 7-8 cm area of erythema on L anterior tibial region. Severe oncymycosis of toenails bilaterally. - Back Exam Back exam: Present: CVA tenderness (R). Absent: CVA tenderness (L) Internal Med - H&P Results - Labs CBC & Chem 7: 11/13/17 22:20 11/13/17 22:20 <Amy Palacios - Last Filed: 11/14/17 05:59> Date of Encounter: 11/14/17 Internal Medicine - H&P: HPI History of present illness: Mr. Leone is a 47 year old male All Systems PM: A 10-system review of systems was performed and is negative for pertinent findings except as documented above in the HPI. - Constitutional Vitals: Temp Pulse Resp BP Pulse Ox 98.1 F 103 20 122/70 98 11/14/17 02:53 11/14/17 02:20 11/14/17 02:53 11/14/17 02:53 11/14/17 02:20 Internal Med - H&P Results - Labs CBC & Chem 7: 11/13/17 22:20 11/13/17 22:20 - Attending Attestation Mr Leone is a 47 yo male with hx of spinal bifida who uses crutches and with limited bowel continence at baseline, bladder ca 6 years ago s/p cystectomy and urostomy, sacral wound under the care of Dr Aguayo who presents with the following Left pink eyes x 4 days Anorexia with nausea, emesis, soft brown stool x 4 days , frequency 2-3 x stools daily Noted sick contact in family Also c/o of urine looking like orange juice with increase sediment concerning for UTI Left buttock wound seeping, "burst open with pus". ROS 14 point review of systems reviewed as best as possible given presentation. Pertinent positive or negative as per HPI or otherwise reviewed as negative General - AAO x 3 Psych - Appropriate affect/speech. No agitation Eyes - Left pink eye. TELLY. Eye lids intact. No scleral icterus Neuro - No gross peripheral or central neuro deficits with intact CN 2-12 exam Heart - Sinus. RRR. S1 and S2 present. No added HS/murmurs appreciated. No elevated JVD appreciated. Lung - Adequate air entry b/l, No crackles/wheezes appreciated GI - Urostomy tube. Soft, non-tender. No hepatosplenomegaly/ascites. BS+ - No CVA/suprapubic tenderness or palpable bladder distension Skin - +2 LE edema with some stasis changes, CT/CT abd pelvis wo no iv no oral IMPRESSION: 1. No acute findings identified in the abdomen and pelvis. Assessment is slightly limited due to respiratory motion. 2. Findings suggestive of gallstones or sludge. XR/XR chest 1V portable IMPRESSION: Negative chest. A/P L. conjunctivitis N/V, anorexia, soft stool - suspect due to viral syndrome with viral conjunctivitis and viral gastroenteritis - clears and progressive as tolerated Complicated UTI Cystectomy s/p urostomy - hx of MDR proteus. 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
[2017-11-14] MEDS ORDERED: [UNRECOGNIZED DRUG - OTHER] MC SCH (04:00)
[2017-11-14] MEDS ORDERED: Vancomycin 2,000 MG in D5% in Water 250 ML IVPB SCH (04:00)
[2017-11-14] MEDS ORDERED: Meropenem 1,000 MG in Water for inj. (sterile) 10 ML IVP SCH (04:00)
[2017-11-14] MEDS ORDERED: Vancomycin 1,750 MG in D5% in Water 500 ML IVPB ONE (06:00)
[2017-11-14 06:15] LABS: Hemoglobin A1C 5.7 %
[2017-11-14 06:52] LABS: BUN/Creatinine Ratio 11 (6-26); Blood Urea Nitrogen 11 mg/dL (8-26); Carbon Dioxide 25 mEq/L (19-29); Chloride 103 mEq/L (98-109); Glucose 146 mg/dL (70-99); Osmolality,Calculated 288 (280-300); Potassium 3.3 mEq/L (3.5-4.5); Sodium 138 mEq/L (136-145); eGFR For African Americans > 60 (> 60); eGFR For Non-African Americans > 60 (> 60)
[2017-11-14 07:01] LABS: Basophils # 0.1 K/mcL (0.0-0.2); Basophils % 0.6 %; Eosinophils # 0.8 K/mcL (0.0-0.6); Hematocrit 34.7 % (37.5-50.1); Immature Granulocytes % 0.5 % (0-4); Lymphocytes # 1.9 K/mcL (0.6-4.6); Mean Corpuscular HGB Conc 30.3 g/dL (31.6-35.5); Mean Corpuscular Hemoglobin 24.5 pg (28.0-33.3); Mean Corpuscular Volume 80.9 fL (83.0-100.0); Mean Platelet Volume 10.8 fL (9.4-12.4); Monocytes % 8.1 %; Neutrophils # 8.7 K/mcL (1.6-8.9); Platelet Count 404 K/mcL (140-400); Red Blood Count 4.29 M/mcL (4.19-5.50); Red Cell Distribution Width 16.3 % (11.5-14.5); Segmented Neutrophils % 69.8 %
[2017-11-14 07:10] LABS: Hemoglobin 10.5 g/dL (12.9-16.9)
[2017-11-14] MEDS: Saline Nasal Spray 44 ML BOTTLE NS SCH (08:06)
[2017-11-14] MEDS: Multivit/Ca/Min/Fe/FA 1 TAB TABLET PO SCH (08:06)
[2017-11-14] MEDS: Cholecalciferol (D-3) 1,000 UNIT TABLET PO SCH (08:06)
[2017-11-14] MEDS: Loratadine 10 MG TABLET PO SCH (08:06)
[2017-11-14] MEDS: Nystatin Cream 15 GM TUBE TP SCH ×3 (08:07→20:31)
--- NOTE | 2017-11-14 11:05 | General Surgery Consult Note ---
Date of Encounter: 11/14/17 Time of Encounter: 11:03 Assessment and Plan (1) Chronic wound of extremity Current Visit: Yes Status: Acute appears to be decubitus ulcer, stage I at present; recommend pressure offloading as best as possible, both for backside as well as lower extremities nutrition labs: pre albumin, albumin, transferrin, plan to follow up in my wound clinic on Tuesdays; will continue treatment for wounds there History of Present Illness Consult date: 11/14/17 Reason for consult: wound care History of present illness: Mr. Leone is a 47 year old male with a PMH of spina bifida, CHF, CVA, HTN, hypothyroidism, type II DM, bladder CA with a PSHx of a urostomy that presents for nausea, vomiting, and abdominal pain. he also has a chronic wound in the back of his L thigh. He says he was in a fdc for the past 4 months due to the wound. He was discharged home 2 weeks ago and his wound seemed to be healing, but now he cites bleeding, pus, and drainage from it. He denies any fever. General surgery was consulted for management recommendations Past Med Surg Social Fam HX - Past Medical History Medical history: asthma, CHF, CVA, hyperlipidemia, hypertension, thyroid disease Psychiatric history: depression - Past Surgical History Surgical History: appendectomy, orthopedic, other, vasectomy, other - Social History Smoking Status: Never smoker Smokeless Tobacco Status: No Alcohol use: none Drug use: none - Family History Mother Family Member Ethnicity: Non- Living Status: Still Living Hx Family Cardiac Disorders: Yes (HTN) Hx Family Endocrine Disorder: Yes (DM) Hx Family Neurologic Disorders: Yes (Dementia) Sister Family Member Ethnicity: Non- Living Status: Still Living Hx Family Cardiac Disorders: Yes (HTN) Hx Family Endocrine Disorder: Yes (DM, thyroid) Brother Family Member Ethnicity: Non- Living Status: Still Living Hx Family Cardiac Disorders: Yes (HTN) Father Family Member Ethnicity: Non- Living Status: Hx Family Cardiac Disorders: Yes (CHF, HTN) Hx Family Respiratory Disorders: Yes (Asthma, emphysema) Hx Family Cancer: Yes (Lung) Hx Family GI Disorders: No Hx Family Endocrine Disorder: Yes Hx Family Neuromuscular Disorders: No Hx Family Neurologic Disorders: No Hx Family HEENT Disorders: No Hx Family Autoimmune Disorders: No Medications and Allergies Fluticasone Propionate Nasal [Flonase] 50 mcg NS DAILY 11/21/15 [History] Potassium Chloride 60 meq PO BID 11/21/15 [History] Rosuvastatin [Crestor] 20 mg PO HS 11/21/15 [History] Cholecalciferol (Vitamin D3) [Vitamin D3] 5,000 unit PO DAILY 11/12/16 [History] Fluticasone Propionate [Flovent Hfa] 2 puff IH BID 11/12/16 [History] Levothyroxine [Synthroid] 200 mcg PO DAILY 11/12/16 [History] Budesonide [Pulmicort Flexhaler 180mcg] 1 puff IH BID 03/08/17 [History] Lactobacillus Acidophilus/Fos [Acidophilus Probiotic Tablet] 1 cap PO DAILY 06/17 [History] Lansoprazole [Prevacid] 15 mg PO DAILY 03/08/17 [History] Loratadine [Claritin] 10 mg PO DAILY 03/08/17 [History] Multivitamin [One Daily Multivitamin] 1 tab PO DAILY 03/08/17 [History] Enalapril Maleate [Vasotec] 10 mg PO DAILY 03/23/17 [History] Ostomy Adhesive [Coloplast Paste Strip] 1 each MC AD 03/23/17 [History] Saline Nasal [place] [[place] Nasal [place]] 1 spray NS AD 03/23/17 [History] Ipratropium/Albuterol Neb [Duoneb] 3 ml IH [id number] inh 06/14/17 [Rx] Omeprazole [PriLOSEC] 20 mg PO DAILY 08/25/17 [History] Doxycycline 100 mg PO BID 5 Days #10 capsule 08/30/17 [Rx] Ertapenem [INVanz] 1,000 mg IVPB DAILY #16 vial 08/30/17 [Rx] Furosemide [Lasix] 40 mg PO BID 7 Days #14 tablet 08/30/17 [Rx] Furosemide [Lasix] 40 mg PO DAILY 7 Days #7 tablet 08/30/17 [Rx] Potassium Chloride 10 meq PO DAILY 7 Days #7 tab.er.prt 08/30/17 [Rx] 3 Allergy/AdvReac Type Severity Reaction Status Date / Time adhesive Allergy Blister Verified 11/13/17 22:05 Amoxicillin Allergy Hives Verified 11/13/17 22:05 Oxaprozin [From Daypro] AdvReac Diarrhea Verified 11/13/17 22:05 Review of Systems All systems PM: A 10-system review of systems was performed and is negative for pertinent findings except as documented above in the HPI. General Surgery Exam Initial Vital Signs Temp Pulse Resp BP Pulse Ox 98.1 F 114 18 135/80 98 11/13/17 22:00 11/13/17 22:00 11/13/17 22:00 11/13/17 22:00 11/13/17 22:00 - General physical appearance well developed, no distress - Eyes normal ocular movement - ENT normocephalic - Neck no lymphadectomy - Respiratory normal expansion, normal respiratory effort - Cardiovascular Cardiovascular exam: Present: RRR - Abdomen Abdomen general surgery: Present: soft, non tender - Integumentary Integumentary general surgery: Present: warm and dry, other (full thickness skin tears, erythema along L post thigh and along sacrum likely stage I decub ulcer) - Neurologic Present: other (not able to move LE on my exam; normal for patient) - Psychiatric Psychiatric general surgery: Present: appropriate Exam Initial Vital Signs Temp Pulse Resp BP Pulse Ox 98.1 F 114 18 135/80 98 11/13/17 22:00 11/13/17 22:00 11/13/17 22:00 11/13/17 22:00 11/13/17 22:00 Results - Labs 11/14/17 05:52 11/14/17 05:52 Abnormal lab results WBC 12.4 K/mcL (4.3-11.1) H 11/14/17 05:52 Hgb 10.5 g/dL (12.9-16.9) L D 11/14/17 05:52 Hct 34.7 % (37.5-50.1) L 11/14/17 05:52 MCV 80.9 fL (83.0-100.0) L 11/14/17 05:52 MCH 24.5 pg (28.0-33.3) L 11/14/17 05:52 MCHC 30.3 g/dL (31.6-35.5) L 11/14/17 05:52 RDW 16.3 % (11.5-14.5) H 11/14/17 05:52 Plt Count 404 K/mcL (140-400) H 11/14/17 05:52 Eosinophils # 0.8 K/mcL (0.0-0.6) H 11/14/17 05:52 PT 12.9 Seconds (9.4-12.1) H 11/13/17 22:20 Potassium 3.3 mEq/L (3.5-4.5) L 11/14/17 05:52 Glucose 146 mg/dL (70-99) H 11/14/17 05:52 POC Glucose 132 (58-89) H 11/14/17 05:40 Hemoglobin A1c 5.7 % (-5.6) H 11/14/17 05:52 Serum Total Protein 8.7 g/dL (6.0-8.3) H 11/13/17 22:20 Albumin 3.2 g/dL (3.5-5.0) L 11/13/17 22:20 Globulin 5.5 g/dL (2.4-3.5) H 11/13/17 22:20 Albumin/Globulin Ratio 0.6 (1.1-2.2) L 11/13/17 22:20 Urine Clarity Turbid (Clear) A 11/13/17 22:20 Urine pH 8.5 pH Units (5.0-8.0) H 11/13/17 22:20 Urine Protein 30 mg/dL (Neg-Trace) H 11/13/17 22:20 Urine Blood Moderate (Negative) H 11/13/17 22:20 Urine Nitrite Positive (Negative) A 11/13/17 22:20 Urine Bilirubin Small (Negative) H 11/13/17 22:20 Ur Leukocyte Esterase Small (Negative) H 11/13/17 22:20 Urine Microscopic RBC 15-30 per hpf (0-3) H 11/13/17 22:20 Urine Microscopic WBC 30-50 per hpf (0-3) H 11/13/17 22:20 Ur Squamous Epith Cells Many per lpf (None-Few) H 11/13/17 22:20 Urine Bacteria Many per hpf (None-Few) H 11/13/17 22:20 Diabetes panel 11/14/17 11/14/17 Range/Units 05:52 05:52 Sodium 138 (136-145) mEq/L Potassium 3.3 L (3.5-4.5) mEq/L Chloride 103 (98-109) mEq/L Carbon Dioxide 25 (19-29) mEq/L BUN 11 (8-26) mg/dL Creatinine 1.00 (0.72-1.25) mg/dL Glucose 146 H (70-99) mg/dL Hemoglobin A1c 5.7 H ( - 5.6) % Calcium 9.0 (8.6-10.8) mg/dL Calcium panel 11/14/17 Range/Units 05:52 Calcium 9.0 (8.6-10.8) mg/dL Pituitary panel 11/14/17 Range/Units 05:52 Sodium 138 (136-145) mEq/L Potassium 3.3 L (3.5-4.5) mEq/L Chloride 103 (98-109) mEq/L Carbon Dioxide 25 (19-29) mEq/L BUN 11 (8-26) mg/dL Creatinine 1.00 (0.72-1.25) mg/dL Glucose 146 H (70-99) mg/dL Calcium 9.0 (8.6-10.8) mg/dL Adrenal panel 11/14/17 Range/Units 05:52 Sodium 138 (136-145) mEq/L Potassium 3.3 L (3.5-4.5) mEq/L Chloride 103 (98-109) mEq/L Carbon Dioxide 25 (19-29) mEq/L BUN 11 (8-26) mg/dL Creatinine 1.00 (0.72-1.25) mg/dL Glucose 146 H (70-99) mg/dL Calcium 9.0 (8.6-10.8) mg/dL All other labs normal. Consult Discharge Plan - Plan Referrals: Maria Elena An MD [Partnered Physician] - 12/03/17 1:00 pm
[2017-11-14] MEDS: Beclomethasone 80mcg MDI IH SCH ×2 (11:07→22:52)
[2017-11-14] MEDS: Ertapenem 1,000 MG in Water for inj. (sterile) 10 ML IVP SCH (11:30)
--- NOTE | 2017-11-14 12:05 | Event Note ---
Date of Encounter: 11/14/17 Time of Encounter: 11:45 Patient is a 47y/o male with extensive med history admitted for sepsis secondary to complicated UTI, Left eye conjunctivitis, LE cellulitis, and sacral wound management. Patient seen and examined at bedside Resting in bed and reports of feeling better compared to previous day History of recurrent ESBL UTI continue Ertapenem until urine cultures available surgery on board for wound care reported of n/v/diarrhea for the past 4 days, awaiting GI panel, continue supportive care LE cellulitis-continue empiric abx continue supportive care for lt eye conjunctivitis likely viral conjunctivitis continue urostomy care continue home medications labs and vitals reviewed.
[2017-11-14] MEDS: Fluticasone Propionate Nasal 50 MCG/SPRAY BOTTLE NS SCH (15:53)
--- NOTE | 2017-11-14 16:21 | Electrocardiograph Report ---
[address] [address] Test Date: 2017-11-13 Pat Name: Sammy Leone Department: 104 Room: 2N5 Gender: M Head Mixer: PAUL : 1970 Requested By: Kofi Keys Order Number: [id number] Reading MD: Veena Quan Measurements Intervals [place] Rate: 103 P: 24 [place]: 120 QRS: 53 QRSD: 100 T: 24 QT: 357 QTc: 416 Interpretive Statements SINUS TACHYCARDIA Electronically Signed On 11-14-2017 16:20:12 EST by Veena Quan
[2017-11-14] MEDS: Vancomycin 1,250 MG in D5% in Water 250 ML IVPB SCH (17:24)
[2017-11-15 04:06] LABS: Basophils # 0.1 K/mcL (0.0-0.2); Basophils % 0.7 %; Eosinophils # 0.9 K/mcL (0.0-0.6); Eosinophils % 9.7 %; Hematocrit 33.2 % (37.5-50.1); Hemoglobin 10.4 g/dL (12.9-16.9); Immature Granulocytes % 0.4 % (0-4); Lymphocytes # 1.6 K/mcL (0.6-4.6); Lymphocytes % 17.2 %; Mean Corpuscular HGB Conc 31.3 g/dL (31.6-35.5); Mean Corpuscular Hemoglobin 25.4 pg (28.0-33.3); Mean Corpuscular Volume 81.2 fL (83.0-100.0); Mean Platelet Volume 10.7 fL (9.4-12.4); Monocytes # 0.8 K/mcL (0.0-1.3); Neutrophils # 5.9 K/mcL (1.6-8.9); Platelet Count 385 K/mcL (140-400); Red Blood Count 4.09 M/mcL (4.19-5.50)
[2017-11-15 04:30] LABS: BUN/Creatinine Ratio 10 (6-26); Blood Urea Nitrogen 8 mg/dL (8-26); Calcium 8.8 mg/dL (8.6-10.8); Carbon Dioxide 23 mEq/L (19-29); Chloride 105 mEq/L (98-109); Glucose 105 mg/dL (70-99); Magnesium 1.4 mg/dL (1.6-2.6); Osmolality,Calculated 287 (280-300); Phosphorous 3.3 mg/dL (2.3-4.7); Potassium 3.3 mEq/L (3.5-4.5); Sodium 139 mEq/L (136-145); eGFR For African Americans > 60 (> 60); eGFR For Non-African Americans > 60 (> 60)
[2017-11-15] MEDS: Vancomycin 1,250 MG in D5% in Water 250 ML IVPB SCH ×2 (06:32→18:18)
[2017-11-15] MEDS: Saline Nasal Spray 44 ML BOTTLE NS SCH (06:33)
[2017-11-15] MEDS: Gatifloxacin OPTH Drops 2.5 mL BOTTLE LEFT EYE SCH ×9 (06:33→23:50)
[2017-11-15] MEDS: Loratadine 10 MG TABLET PO SCH (09:08)
[2017-11-15] MEDS: Cholecalciferol (D-3) 1,000 UNIT TABLET PO SCH (09:08)
[2017-11-15] MEDS: Multivit/Ca/Min/Fe/FA 1 TAB TABLET PO SCH (09:08)
[2017-11-15] MEDS: Ertapenem 1,000 MG in Water for inj. (sterile) 10 ML IVP SCH (09:09)
[2017-11-15] MEDS: Fluticasone Propionate Nasal 50 MCG/SPRAY BOTTLE NS SCH (09:10)
[2017-11-15] MEDS: Nystatin Cream 15 GM TUBE TP SCH ×3 (09:10→21:44)
[2017-11-15] MEDS: Beclomethasone 80mcg MDI IH SCH ×2 (10:36→21:14)
[2017-11-15] MEDS: Miconazole w/zinc oxide&karaya 92 APPL/92 GM TUBE TP SCH ×2 (13:39→21:44)
[2017-11-15] MEDS: Gentamicin Oint 15 GM TUBE TP SCH (13:39)
--- NOTE | 2017-11-15 17:17 | Internal Med Progress Note ---
Date of Encounter: 11/15/17 Time of Encounter: 16:00 - Assessment and plan (1) Decubitus ulcer of left ankle, stage 3 Current Visit: No Status: Chronic (2) Spina bifida Current Visit: No Status: Chronic Qualifiers: Spinal region: lumbosacral Presence of hydrocephalus: unspecified hydrocephalus presence Qualified Code(s): Q05.7 - Lumbar spina bifida without hydrocephalus (3) UTI (urinary tract infection) Current Visit: No Status: Acute Qualifiers: Urinary tract infection type: site unspecified Hematuria presence: without hematuria Qualified Code(s): N39.0 - Urinary tract infection, site not specified (4) Essential hypertension Current Visit: No Status: Chronic (5) Hyperlipidemia Current Visit: No Status: Chronic Qualifiers: Hyperlipidemia type: unspecified Qualified Code(s): E78.5 - Hyperlipidemia , unspecified (6) Hypothyroidism Current Visit: No Status: Chronic Qualifiers: Hypothyroidism type: unspecified Qualified Code(s): E03.9 - Hypothyroidism , unspecified (7) History of urostomy Current Visit: No Status: Chronic (8) UTI (urinary tract infection) Current Visit: Yes Status: Acute Qualifiers: Urinary tract infection type: site unspecified Hematuria presence: without hematuria Qualified Code(s): N39.0 - Urinary tract infection, site not specified (9) Morbid obesity with BMI of 40.0-44.9, adult Current Visit: No Status: Chronic (10) GERD (gastroesophageal reflux disease) Current Visit: No Status: Chronic Qualifiers: Esophagitis presence: esophagitis presence not specified Qualified Code(s) : K21.9 - Gastro-esophageal reflux disease without esophagitis (11) Viral conjunctivitis of left eye Current Visit: Yes Status: Acute (12) Type 2 diabetes mellitus Current Visit: Yes Status: Chronic Assessment and plan: CONTINUE IV ABX, FOR STAGE 1 DECUBITUS ULCER. DAILY DRESSING CHANGES. RESUME SYNTHROID PT SEEN BY GEN SURGERY NO SURGICAL RECOMMENDED AND OUTPATIENT FOLLOWUP RECOMMENDED. VIRAL CONJUNCTIVITIS IMPROVING. UTI - CULTURES GORGING PROTEUS MIRABILIS, FOLLOW CULTURE RESULTS. CONTINUE ACCUCHECK WITH INSULIN COVERAGE. Qualifiers: Diabetes mellitus complication status: with unspecified complications Diabetes mellitus retirement insulin use: without buttermaker use Qualified Code( s): E11.8 - Type 2 diabetes mellitus with unspecified complications - Subjective Interval history: REPORTS FEELING OK TODAY - Constitutional Vitals: Temp Pulse Resp BP Pulse Ox 97.9 F 81 16 113/73 97 11/15/17 11:47 11/15/17 11:47 11/15/17 11:47 11/15/17 11:47 11/15/17 11:47 General appearance: Present: A&O X 3, morbidly obese, no acute distress, answers questions appropriately - Head Head exam: Present: atraumatic, normocephalic - Eye Eye exam: Present: PERRL, conjuntiva pink, sclera anicteric Pupils: Present: PERRL - Neck Neck exam general surgery: Present: supple, trachea midline. Absent: lymphadenopathy - Respiratory Respiratory exam: Present: CTAB. Absent: accessory muscle use, rales, rhonchi, wheezes - Cardiovascular Cardiovascular exam: Present: RRR, +S1, +S2. Absent: diastolic murmur, gallop, rubs, systolic murmur - GI/Abdominal GI/Abdominal exam: Present: normal bowel sounds, soft, no peritoneal signs. Absent: distended, tenderness - Extremities Exam Extremities exam: Present: warm, radial pulses palpable and symmetrical. Absent : calf tenderness, cyanotic, pedal edema Additional comments: BILATERAL LE ANKLE DRESSINGS INTACT. - Neurological Exam Neurological exam: Present: CN II-XII intact, oriented X3, no focal deficits. Absent: pronater drift, facial droop, speech deficit - Skin Skin exam: Present: dry, intact Internal Medicine: Result - Labs CBC & Chem 7: 11/15/17 03:14 11/15/17 03:14 Labs: Short CBC 11/15/17 Range/Units 03:14 WBC 9.4 (4.3-11.1) K/mcL Hgb 10.4 L (12.9-16.9) g/dL Hct 33.2 L (37.5-50.1) % Plt Count 385 (140-400) K/mcL Neutrophils # 5.9 (1.6-8.9) K/mcL BMP 11/15/17 03:14 Sodium 139 Potassium 3.3 L Chloride 105 Carbon Dioxide 23 BUN 8 Creatinine 0.80 Glucose 105 H Calcium 8.8 - ABG Interpretation ABG results: PT/INR, D-dimer PT 12.9 Seconds (9.4-12.1) H 11/13/17 22:20 Consult Discharge Plan - Plan Referrals: Maria Elena An MD [Partnered Physician] - 12/03/17 1:00 pm
[2017-11-15] MEDS: *HR* Heparin 5,000 UNIT/ML VIAL SQ SCH (21:43)
[2017-11-16] MEDS: *HR* Heparin 5,000 UNIT/ML VIAL SQ SCH ×2 (05:31→17:31)
[2017-11-16] MEDS: Saline Nasal Spray 44 ML BOTTLE NS SCH (05:31)
[2017-11-16] MEDS: Gatifloxacin OPTH Drops 2.5 mL BOTTLE LEFT EYE SCH ×9 (05:31→23:00)
[2017-11-16] MEDS: Vancomycin 1,250 MG in D5% in Water 250 ML IVPB SCH ×2 (08:06→17:31)
[2017-11-16 08:11] LABS: Basophils # 0.1 K/mcL (0.0-0.2); Basophils % 0.7 %; Eosinophils # 0.8 K/mcL (0.0-0.6); Eosinophils % 7.5 %; Hematocrit 36.5 % (37.5-50.1); Hemoglobin 11.4 g/dL (12.9-16.9); Lymphocytes # 1.9 K/mcL (0.6-4.6); Lymphocytes % 18.1 %; Mean Corpuscular HGB Conc 31.2 g/dL (31.6-35.5); Mean Corpuscular Hemoglobin 24.9 pg (28.0-33.3); Mean Corpuscular Volume 79.9 fL (83.0-100.0); Mean Platelet Volume 11.5 fL (9.4-12.4); Monocytes # 0.9 K/mcL (0.0-1.3); Monocytes % 8.5 %; Neutrophils # 6.6 K/mcL (1.6-8.9); Platelet Count 257 K/mcL (140-400); Red Blood Count 4.57 M/mcL (4.19-5.50); Red Cell Distribution Width 16.1 % (11.5-14.5); Segmented Neutrophils % 64.2 %
[2017-11-16 08:20] LABS: BUN/Creatinine Ratio 8 (6-26); Blood Urea Nitrogen 6 mg/dL (8-26); Calcium 9.1 mg/dL (8.6-10.8); Carbon Dioxide 22 mEq/L (19-29); Chloride 106 mEq/L (98-109); Glucose 120 mg/dL (70-99); Osmolality,Calculated 283 (280-300); Sodium 137 mEq/L (136-145); eGFR For African Americans > 60 (> 60); eGFR For Non-African Americans > 60 (> 60)
[2017-11-16 08:21] LABS: Potassium 3.9 mEq/L (3.5-4.5)
[2017-11-16] MEDS: Beclomethasone 80mcg MDI IH SCH ×2 (08:33→21:34)
[2017-11-16] MEDS ORDERED: Aminoglycoside Consult 1 EACH MC ONE (08:34)
[2017-11-16] MEDS: Multivit/Ca/Min/Fe/FA 1 TAB TABLET PO SCH (09:28)
[2017-11-16] MEDS: Loratadine 10 MG TABLET PO SCH (09:28)
[2017-11-16] MEDS: Cholecalciferol (D-3) 1,000 UNIT TABLET PO SCH (09:29)
[2017-11-16] MEDS: Ertapenem 1,000 MG in Water for inj. (sterile) 10 ML IVP SCH (09:29)
[2017-11-16] MEDS: Fluticasone Propionate Nasal 50 MCG/SPRAY BOTTLE NS SCH (09:31)
[2017-11-16] MEDS: Nystatin Cream 15 GM TUBE TP SCH ×3 (09:32→21:25)
[2017-11-16] MEDS: Gentamicin Oint 15 GM TUBE TP SCH (09:45)
[2017-11-16] MEDS: Miconazole w/zinc oxide&karaya 92 APPL/92 GM TUBE TP SCH ×2 (12:27→21:24)
--- NOTE | 2017-11-16 16:41 | Internal Med Progress Note ---
Date of Encounter: 11/16/17 Time of Encounter: 11:45 - Assessment and plan (1) Cellulitis of left lower extremity Current Visit: Yes Status: Acute Assessment and plan: Improving. Wound is chronic in nature and No longer draining any pus. Surgery input appreciated. Continue local wound care and IV antibiotics. Moderate risk for complications (2) Chronic wound of extremity Current Visit: Yes Status: Acute Assessment and plan: Recent wound culture positive for protein Proteus. Currently receiving ertapenem. Surgery consult appreciated. Continue local wound care. (3) UTI (urinary tract infection) Current Visit: Yes Status: Acute Assessment and plan: Recurrent urinary tract infections due to presence of urostomy. Urine culture growing Proteus that is ESBL and enterococcus. Currently patient is on vancomycin and ertapenem. We will consult infectious disease for evaluation and antibiotic recommendations. Qualifiers: Urinary tract infection type: acute cystitis Hematuria presence: without hematuria Qualified Code(s): N30.00 - Acute cystitis without hematuria (4) Abdominal pain, vomiting, and diarrhea Current Visit: Yes Status: Acute Assessment and plan: Approved. Patient is now tolerating diet well. No longer having any diarrhea. (5) Bilateral lower extremity edema Current Visit: Yes Status: Acute Assessment and plan: Chronic edema.Will resume oral Lasix (6) Bladder cancer Current Visit: Yes Status: Acute Assessment and plan: Status post urostomy with recurrent urinary tract infections. Continue outpatient follow-up with urology. Qualifiers: Qualified Code(s): C67.9 - Malignant neoplasm of bladder, unspecified (7) Decubitus ulcer of left thigh, stage 3 Current Visit: Yes Status: Chronic Assessment and plan: wound care consult appreciated. Follow recommendations (8) History of urostomy Current Visit: No Status: Chronic (9) Hypokalemia Current Visit: Yes Status: Acute Assessment and plan: Improved. Since patient will be restarted on Lasix, will place patient on oral potassium supplements (10) Hypothyroidism Current Visit: Yes Status: Chronic Assessment and plan: Continue levothyroxine Qualifiers: Qualified Code(s): E03.9 - Hypothyroidism, unspecified (11) Sepsis Current Visit: Yes Status: Acute Assessment and plan: Due to UTI/cellulitis with chronic wound in the left lower extremity. On ertapenem and vancomycin. Qualifiers: Sepsis type: sepsis due to unspecified organism Qualified Code(s): A41.9 - Sepsis, unspecified organism (12) Type 2 diabetes mellitus Current Visit: Yes Status: Chronic Assessment and plan: Well-controlled. Continue current insulin regimen Qualifiers: Diabetes mellitus complication status: with unspecified complications Diabetes mellitus halfway insulin use: without intermediate designer use Qualified Code( s): E11.8 - Type 2 diabetes mellitus with unspecified complications - Subjective Interval history: Patient is feeling better today. Denies any new complaints at this time. No nausea or vomiting. No fever or chills overnight. - Constitutional Vitals: Temp Pulse Resp BP Pulse Ox 98.0 F 79 18 117/74 98 11/16/17 15:58 11/16/17 15:58 11/16/17 15:58 11/16/17 15:58 11/16/17 15:58 General appearance: Present: A&O X 3, morbidly obese, no acute distress, answers questions appropriately - Neck Neck exam general surgery: Present: supple, trachea midline. Absent: lymphadenopathy - Respiratory Respiratory exam: Present: CTAB. Absent: accessory muscle use, rales, rhonchi, wheezes - Cardiovascular Cardiovascular exam: Present: RRR, +S1, +S2. Absent: diastolic murmur, gallop, rubs, systolic murmur - Extremities Exam Extremities exam: Present: pedal edema (bilateral), warm, radial pulses palpable and symmetrical. Absent: calf tenderness, cyanotic - Neurological Exam Neurological exam: Present: alert, oriented X3, no focal deficits. Absent: facial droop, speech deficit - Skin Skin exam: Present: dry, intact Internal Medicine: Result - Labs CBC & Chem 7: 11/16/17 07:43 11/16/17 07:43 Labs: Short CBC 11/16/17 Range/Units 07:43 WBC 10.3 (4.3-11.1) K/mcL Hgb 11.4 L (12.9-16.9) g/dL Hct 36.5 L (37.5-50.1) % Plt Count 257 (140-400) K/mcL Neutrophils # 6.6 (1.6-8.9) K/mcL BMP 11/16/17 07:43 Sodium 137 Potassium 3.9 Chloride 106 Carbon Dioxide 22 BUN 6 L Creatinine 0.79 Glucose 120 H Calcium 9.1 - ABG Interpretation ABG results: PT/INR, D-dimer PT 12.9 Seconds (9.4-12.1) H 11/13/17 22:20 Consult Discharge Plan - Plan Referrals: Maria Elena An MD [Partnered Physician] - 12/03/17 1:00 pm
[2017-11-17] MEDS: Saline Nasal Spray 44 ML BOTTLE NS SCH (05:04)
[2017-11-17] MEDS: Vancomycin 1,250 MG in D5% in Water 250 ML IVPB SCH (05:05)
[2017-11-17] MEDS: Gatifloxacin OPTH Drops 2.5 mL BOTTLE LEFT EYE SCH ×8 (05:06→21:36)
[2017-11-17] MEDS: *HR* Heparin 5,000 UNIT/ML VIAL SQ SCH ×2 (05:39→18:04)
[2017-11-17] MEDS: Gentamicin Oint 15 GM TUBE TP SCH (09:23)
[2017-11-17] MEDS: Cholecalciferol (D-3) 1,000 UNIT TABLET PO SCH (09:27)
[2017-11-17] MEDS: Loratadine 10 MG TABLET PO SCH (09:27)
[2017-11-17] MEDS: Multivit/Ca/Min/Fe/FA 1 TAB TABLET PO SCH (09:27)
[2017-11-17] MEDS: Ertapenem 1,000 MG in Water for inj. (sterile) 10 ML IVP SCH (09:27)
[2017-11-17] MEDS: Fluticasone Propionate Nasal 50 MCG/SPRAY BOTTLE NS SCH (09:29)
[2017-11-17] MEDS: Nystatin Cream 15 GM TUBE TP SCH ×3 (09:30→21:37)
[2017-11-17] MEDS: Beclomethasone 80mcg MDI IH SCH ×2 (10:15→21:38)
--- NOTE | 2017-11-17 11:21 | Internal Med Progress Note ---
Date of Encounter: 11/17/17 Time of Encounter: 10:45 - Assessment and plan (1) Cellulitis of left lower extremity Current Visit: Yes Status: Acute Assessment and plan: Decubitus ulcer wound infection involving the left posterior thigh. Continue ertapenem. Consulted infectious disease for antibiotic recommendations. (2) Chronic wound of extremity Current Visit: Yes Status: Acute Assessment and plan: Continue local wound care. Follow up with wound clinic after discharge (3) UTI (urinary tract infection) Current Visit: Yes Status: Acute Assessment and plan: Urine culture positive for Proteus and vancomycin-resistant enterococcus. We will stop vancomycin and place patient on Zyvox. Qualifiers: Urinary tract infection type: acute cystitis Hematuria presence: without hematuria Qualified Code(s): N30.00 - Acute cystitis without hematuria (4) Abdominal pain, vomiting, and diarrhea Current Visit: Yes Status: Resolved (5) Bilateral lower extremity edema Current Visit: Yes Status: Acute Assessment and plan: Started back on Lasix. Chronic bilateral lower extremity edema. (6) Bladder cancer Current Visit: Yes Status: Chronic Assessment and plan: Follow-up outpatient with urology Qualifiers: Qualified Code(s): C67.9 - Malignant neoplasm of bladder, unspecified (7) Decubitus ulcer of left thigh, stage 3 Current Visit: Yes Status: Chronic (8) History of urostomy Current Visit: No Status: Chronic Assessment and plan: With acute infection. Will consult urology to replace catheter (9) Hypokalemia Current Visit: Yes Status: Acute Assessment and plan: Improved. Continue oral potassium supplements (10) Hypothyroidism Current Visit: Yes Status: Chronic Assessment and plan: Continue Synthroid Qualifiers: Qualified Code(s): E03.9 - Hypothyroidism, unspecified (11) Sepsis Current Visit: Yes Status: Resolved Assessment and plan: WBC count back to normal. Blood cultures have been negative. Sepsis appears to be resolving. Qualifiers: Sepsis type: sepsis due to unspecified organism Qualified Code(s): A41.9 - Sepsis, unspecified organism (12) Type 2 diabetes mellitus Current Visit: Yes Status: Chronic Assessment and plan: Fairly controlled. Continue current insulin regimen Qualifiers: Diabetes mellitus complication status: with unspecified complications Diabetes mellitus termite control servicer insulin use: without prison use Qualified Code( s): E11.8 - Type 2 diabetes mellitus with unspecified complications - Subjective Interval history: Patient is doing well overall. Denies any new complaints at this time. He has not had any fever or chills overnight. - Constitutional Vitals: Temp Pulse Resp BP Pulse Ox 97.9 F 82 18 133/85 97 11/17/17 08:43 11/17/17 08:43 11/17/17 08:43 11/17/17 08:43 11/17/17 08:43 General appearance: Present: A&O X 3, morbidly obese, no acute distress, answers questions appropriately - Neck Neck exam general surgery: Present: supple, trachea midline. Absent: lymphadenopathy - Respiratory Respiratory exam: Present: CTAB. Absent: accessory muscle use, rales, rhonchi, wheezes - Cardiovascular Cardiovascular exam: Present: RRR, +S1, +S2. Absent: diastolic murmur, gallop, rubs, systolic murmur - GI/Abdominal GI/Abdominal exam: Present: normal bowel sounds, soft, no peritoneal signs. Absent: distended, tenderness - Additional comments: Urostomy in place - Extremities Exam Extremities exam: Present: warm, radial pulses palpable and symmetrical. Absent : calf tenderness, cyanotic, pedal edema Additional comments: Bilateral feet currently bandaged. Left posterior thigh wound is stable. No pus or drainage noted Internal Medicine: Result - Labs CBC & Chem 7: 11/16/17 07:43 11/16/17 07:43 - ABG Interpretation ABG results: PT/INR, D-dimer PT 12.9 Seconds (9.4-12.1) H 11/13/17 22:20 Consult Discharge Plan - Plan Referrals: Maria Elena An MD [Partnered Physician] - 12/03/17 1:00 pm
[2017-11-17] MEDS: Furosemide 40 MG TABLET PO SCH (12:37)
[2017-11-17] MEDS ORDERED: Menthol 9.1 MG LOZENGE PO PRN (16:09)
[2017-11-17] MEDS ORDERED: Benzonatate 100 MG CAPSULE PO PRN (16:13)
[2017-11-17] MEDS: Miconazole w/zinc oxide&karaya 92 APPL/92 GM TUBE TP SCH ×2 (16:15→21:37)
[2017-11-18] MEDS: Gatifloxacin OPTH Drops 2.5 mL BOTTLE LEFT EYE SCH ×10 (00:46→23:11)
[2017-11-18 05:53] LABS: Basophils # 0.1 K/mcL (0.0-0.2); Basophils % 0.7 %; Eosinophils # 0.6 K/mcL (0.0-0.6); Eosinophils % 4.9 %; Hematocrit 37.5 % (37.5-50.1); Hemoglobin 11.6 g/dL (12.9-16.9); Immature Granulocytes % 0.9 % (0-4); Lymphocytes # 2.3 K/mcL (0.6-4.6); Lymphocytes % 19.7 %; Mean Corpuscular HGB Conc 30.9 g/dL (31.6-35.5); Mean Corpuscular Hemoglobin 25.2 pg (28.0-33.3); Mean Corpuscular Volume 81.3 fL (83.0-100.0); Mean Platelet Volume 11.5 fL (9.4-12.4); Monocytes # 0.8 K/mcL (0.0-1.3); Monocytes % 7.1 %; Neutrophils # 7.6 K/mcL (1.6-8.9); Platelet Count 345 K/mcL (140-400); Red Blood Count 4.61 M/mcL (4.19-5.50); Red Cell Distribution Width 16.2 % (11.5-14.5); Segmented Neutrophils % 66.7 %
[2017-11-18 06:13] LABS: BUN/Creatinine Ratio 7 (6-26); Blood Urea Nitrogen 6 mg/dL (8-26); Calcium 9.2 mg/dL (8.6-10.8); Carbon Dioxide 23 mEq/L (19-29); Chloride 104 mEq/L (98-109); Glucose 102 mg/dL (70-99); Osmolality,Calculated 284 (280-300); Sodium 138 mEq/L (136-145); eGFR For African Americans > 60 (> 60); eGFR For Non-African Americans > 60 (> 60)
[2017-11-18 06:14] LABS: Potassium 4.5 mEq/L (3.5-4.5)
[2017-11-18] MEDS: *HR* Heparin 5,000 UNIT/ML VIAL SQ SCH ×2 (06:23→20:58)
[2017-11-18] MEDS: Saline Nasal Spray 44 ML BOTTLE NS SCH (06:23)
[2017-11-18] MEDS: Beclomethasone 80mcg MDI IH SCH ×2 (08:27→22:34)
[2017-11-18] MEDS: Cholecalciferol (D-3) 1,000 UNIT TABLET PO SCH (09:52)
[2017-11-18] MEDS: Multivit/Ca/Min/Fe/FA 1 TAB TABLET PO SCH (09:52)
[2017-11-18] MEDS: Furosemide 40 MG TABLET PO SCH (09:52)
[2017-11-18] MEDS: Loratadine 10 MG TABLET PO SCH (09:52)
[2017-11-18] MEDS: Fluticasone Propionate Nasal 50 MCG/SPRAY BOTTLE NS SCH (09:53)
[2017-11-18] MEDS: Linezolid 600 MG TABLET PO SCH ×2 (15:12→20:59)
[2017-11-18] MEDS: Ertapenem 1,000 MG in Water for inj. (sterile) 10 ML IVP SCH (15:13)
[2017-11-18] MEDS: Nystatin Cream 15 GM TUBE TP SCH ×3 (15:47→20:59)
[2017-11-18] MEDS: Gentamicin Oint 15 GM TUBE TP SCH (15:47)
[2017-11-18] MEDS: Miconazole w/zinc oxide&karaya 92 APPL/92 GM TUBE TP SCH ×2 (15:47→20:59)
--- NOTE | 2017-11-18 15:59 | Internal Med Progress Note ---
Date of Encounter: 11/18/17 Time of Encounter: 10:45 - Assessment and plan (1) Cellulitis of left lower extremity Current Visit: Yes Status: Acute Assessment and plan: Left posterior thigh gluteal region wound. Wound culture positive for Proteus mirabilis. Patient has been growing the same organism for several months now. Infectious disease consulted for antibiotic recommendations. Continue ertapenem for now. (2) Chronic wound of extremity Current Visit: Yes Status: Acute (3) UTI (urinary tract infection) Current Visit: Yes Status: Acute Assessment and plan: Urine culture positive for vancomycin resistant enterococcus and Proteus. On Zyvox. We will change it to oral Zyvox Qualifiers: Urinary tract infection type: acute cystitis Hematuria presence: without hematuria Qualified Code(s): N30.00 - Acute cystitis without hematuria (4) Abdominal pain, vomiting, and diarrhea Current Visit: Yes Status: Resolved (5) Bilateral lower extremity edema Current Visit: Yes Status: Acute Assessment and plan: Continue Lasix (6) Bladder cancer Current Visit: Yes Status: Chronic Assessment and plan: With urostomy. Discussed need to change catheter with urology. They recommended against it. Continue to treat with antibiotics. Follow up outpatient with urology after discharge Qualifiers: Qualified Code(s): C67.9 - Malignant neoplasm of bladder, unspecified (7) Decubitus ulcer of left thigh, stage 3 Current Visit: Yes Status: Chronic Assessment and plan: Continue local wound care. Frequent repositioning. (8) History of urostomy Current Visit: No Status: Chronic (9) Hypokalemia Current Visit: Yes Status: Resolved Assessment and plan: Normalized. Currently on 60 mEq by mouth twice a day supplementation. Will decrease to 20 mEq by mouth twice a day (10) Hypothyroidism Current Visit: Yes Status: Chronic Assessment and plan: Continue levothyroxine Qualifiers: Qualified Code(s): E03.9 - Hypothyroidism, unspecified (11) Sepsis Current Visit: Yes Status: Resolved Qualifiers: Sepsis type: sepsis due to unspecified organism Qualified Code(s): A41.9 - Sepsis, unspecified organism (12) Type 2 diabetes mellitus Current Visit: Yes Status: Chronic Assessment and plan: Well-controlled. Qualifiers: Diabetes mellitus complication status: with unspecified complications Diabetes mellitus detention insulin use: without detention use Qualified Code( s): E11.8 - Type 2 diabetes mellitus with unspecified complications - Subjective Interval history: Patient is awake and alert. Denies any new complaints. No abdominal pain. No nausea or vomiting. No lower extremity pain. No fever or chills reported overnight. - Constitutional Vitals: Temp Pulse Resp BP Pulse Ox 97.7 F 85 16 127/80 97 11/18/17 11:37 11/18/17 11:37 11/18/17 11:37 11/18/17 11:37 11/18/17 11:37 General appearance: Present: A&O X 3, morbidly obese, no acute distress, answers questions appropriately - Neck Neck exam general surgery: Present: supple, trachea midline. Absent: lymphadenopathy - Respiratory Respiratory exam: Present: CTAB. Absent: accessory muscle use, rales, rhonchi, wheezes - Cardiovascular Cardiovascular exam: Present: RRR, +S1, +S2. Absent: diastolic murmur, gallop, rubs, systolic murmur - Extremities Exam Extremities exam: Present: pedal edema, warm, radial pulses palpable and symmetrical. Absent: calf tenderness, cyanotic Additional comments: Both feet are bandaged. Patient denies any pain at this time. Left thigh cellulitis appears to be mostly resolved at this time. Internal Medicine: Result - Labs CBC & Chem 7: 11/18/17 05:22 11/18/17 05:22 Labs: Short CBC 11/18/17 Range/Units 05:22 WBC 11.5 H (4.3-11.1) K/mcL Hgb 11.6 L (12.9-16.9) g/dL Hct 37.5 (37.5-50.1) % Plt Count 345 (140-400) K/mcL Neutrophils # 7.6 (1.6-8.9) K/mcL BMP 11/18/17 05:22 Sodium 138 Potassium 4.5 Chloride 104 Carbon Dioxide 23 BUN 6 L Creatinine 0.85 Glucose 102 H Calcium 9.2 - ABG Interpretation ABG results: PT/INR, D-dimer PT 12.9 Seconds (9.4-12.1) H 11/13/17 22:20 Consult Discharge Plan - Plan Referrals: Maria Elena An MD [Partnered Physician] - 12/03/17 1:00 pm
[2017-11-19] MEDS: Gatifloxacin OPTH Drops 2.5 mL BOTTLE LEFT EYE SCH ×4 (05:48→12:20)
[2017-11-19] MEDS: Saline Nasal Spray 44 ML BOTTLE NS SCH (05:48)
[2017-11-19] MEDS: *HR* Heparin 5,000 UNIT/ML VIAL SQ SCH (05:48)
[2017-11-19 06:29] LABS: BUN/Creatinine Ratio 10 (6-26); Blood Urea Nitrogen 10 mg/dL (8-26); Carbon Dioxide 26 mEq/L (19-29); Chloride 105 mEq/L (98-109); Glucose 136 mg/dL (70-99); Osmolality,Calculated 287 (280-300); Sodium 138 mEq/L (136-145); eGFR For African Americans > 60 (> 60); eGFR For Non-African Americans > 60 (> 60)
[2017-11-19 06:42] LABS: Basophils # 0.1 K/mcL (0.0-0.2); Basophils % 0.6 %; Eosinophils # 0.5 K/mcL (0.0-0.6); Eosinophils % 4.7 %; Hematocrit 34.5 % (37.5-50.1); Hemoglobin 10.5 g/dL (12.9-16.9); Immature Granulocytes % 0.8 % (0-4); Lymphocytes # 2.1 K/mcL (0.6-4.6); Mean Corpuscular HGB Conc 30.4 g/dL (31.6-35.5); Mean Corpuscular Hemoglobin 25.4 pg (28.0-33.3); Mean Corpuscular Volume 83.3 fL (83.0-100.0); Mean Platelet Volume 10.7 fL (9.4-12.4); Monocytes # 0.7 K/mcL (0.0-1.3); Monocytes % 6.2 %; Neutrophils # 7.1 K/mcL (1.6-8.9); Platelet Count 374 K/mcL (140-400); Red Blood Count 4.14 M/mcL (4.19-5.50); Red Cell Distribution Width 16.4 % (11.5-14.5); Segmented Neutrophils % 67.7 %
[2017-11-19] MEDS: Beclomethasone 80mcg MDI IH SCH (07:51)
[2017-11-19] MEDS: Loratadine 10 MG TABLET PO SCH (09:50)
[2017-11-19] MEDS: Cholecalciferol (D-3) 1,000 UNIT TABLET PO SCH (09:50)
[2017-11-19] MEDS: Multivit/Ca/Min/Fe/FA 1 TAB TABLET PO SCH (09:50)
[2017-11-19] MEDS: Ertapenem 1,000 MG in Water for inj. (sterile) 10 ML IVP SCH (09:50)
[2017-11-19] MEDS: Linezolid 600 MG TABLET PO SCH (09:50)
[2017-11-19] MEDS: Furosemide 40 MG TABLET PO SCH (09:50)
[2017-11-19] MEDS: Gentamicin Oint 15 GM TUBE TP SCH (09:51)
[2017-11-19] MEDS: Fluticasone Propionate Nasal 50 MCG/SPRAY BOTTLE NS SCH (09:51)
[2017-11-19] MEDS: Miconazole w/zinc oxide&karaya 92 APPL/92 GM TUBE TP SCH (09:51)
[2017-11-19] MEDS: Nystatin Cream 15 GM TUBE TP SCH (10:00)
--- NOTE | 2017-11-19 11:47 | Infectious Disease Consult ---
Date of Encounter: 11/19/17 Time of Encounter: 11:44 Assessment and Plan (1) Sepsis Status: Resolved Assessment and plan: The patient had two SIRS criteria plus lactic acidosis on admission. Likely multifactorial: wound infection + gastroenteritis + UTI. Resolved. Leukocytosis and tachycardia have resolved. Blood cultures drawn 11/13/17 are negative 2/2 sets. Qualifiers: Sepsis type: sepsis due to unspecified organism Qualified Code(s): A41.9 - Sepsis, unspecified organism (2) Cellulitis of left lower extremity Status: Acute Assessment and plan: Location: Left posterior thigh. Causative organism Proteus mirabilis. Likely secondary to non-healing wound. No indications of cellulitis noted at this time. Normally, would recommend treating with oral antibiotics, but due to susceptibility patterns, will have to complete treating with IV antibiotics. Continue Ertapenem 1 gram I daily. Duration of treatment depends on the clinical picture, but likely a total of 10 days. Monitor renal function and for drug toxicity and dose-adjust antibiotics. Recommend continued follow up with the wound care center. (3) UTI (urinary tract infection) Status: Acute Assessment and plan: UTI vs. asymptomatic bacteriuria. The patient's only urinary complaint was change in the urine color and smell, but this could be secondary to poor PO intake as well. The patient's spina bifida alters his sensation of pain and makes it difficult to tell if he is having bladder pain. Causative organism VRE and Proteus mirabilis. I called and spoke with micro. The VRE is susceptible to nitrofurantoin. Continue Ertapenem as above. Discontinue Zyvox. Start nitrofurantoin 100mg PO BID. Duration of treatment depends on the clinical picture, but recommend a total of 10 days. Qualifiers: Urinary tract infection type: acute cystitis Hematuria presence: without hematuria Qualified Code(s): N30.00 - Acute cystitis without hematuria (4) URI (upper respiratory infection) Status: Acute Assessment and plan: Likely viral in origin. Appears improved. Continue supportive care per the primary team. Qualifiers: URI type: unspecified viral URI Qualified Code(s): J06.9 - Acute upper respiratory infection, unspecified; B97.89 - Other viral agents as the cause of diseases classified elsewhere; B97.89 - Other viral agents as the cause of diseases classified elsewhere (5) Bacterial conjunctivitis of left eye Status: Acute Assessment and plan: Resolved. Discontinue Zymaxid after today (day 7). (6) Nausea and vomiting Status: Acute Assessment and plan: Likely secondary to viral gastroenteritis. Resolved. Qualifiers: Vomiting type: unspecified (7) Viral gastroenteritis Status: Resolved (8) Chronic wound of extremity Status: Acute (9) Type 2 diabetes mellitus Status: Chronic Assessment and plan: Controlled. HgbA1C 5.7%. Continue aggressive glucose monitoring and control to promote wound healing and prevent recurrence of infection. Qualifiers: Diabetes mellitus complication status: with unspecified complications Diabetes mellitus snf insulin use: without snf use Qualified Code( s): E11.8 - Type 2 diabetes mellitus with unspecified complications (10) Morbid obesity with BMI of 40.0-44.9, adult Status: Chronic Infectious Disease HPI - Data of Consult Patient: known to practice within the last 3 years Consult date: 11/19/17 Requesting Physician: Danny Chapman Primary Care Provider: Jaun Price MD - Consult Narrative Reason for consult: UTI, Wound infection History of present illness: Mr. Leone is a 47 year old male with a past medical history of spina bifida, bladder cancer status post cystectomy with urostomy, diabetes, CHF, chronic lower extremity wounds, CVA, hyperlipidemia, and hypertension. The patient was admitted to the hospital November 13 for left lower extremity wound infection and UTI. We are consulted November 19 for antibiotic recommendations for UTI and wound infection. Briefly, the patient's a 47-year-old male with a past medical history as stated above. The patient is well-known to the infectious disease service as we have been consulted on his case multiple times in the past. Apparently, the patient was having symptoms consistent with URI and gastroenteritis about 4 days prior to admission. He complained of a nonproductive cough, sinus congestion, left ear pain, and left eye conjunctivitis. He also reported nausea with vomiting and diarrhea. He also noticed that he had some increased drainage from his left lower extremity wound and had changed color to a dark orange's foul-smelling. Upon arrival, the patient was afebrile, but he was tachycardic and have leukocytosis with lactic acidosis. Urinalysis was positive for pyuria. Chest x- ray and CT the abdomen and pelvis were negative. Urine culture was obtained that grew out Proteus mirabilis and VRE. He was started on empiric IV antibiotics and admitted to the hospital for further evaluation. Since admission, the patient's leukocytosis and tachycardia have resolved. He has remained afebrile and hemodynamically stable. General surgery was consulted for wound care recommendations. A wound culture of the left posterior thigh wound was obtained and grew out Proteus mirabilis. Currently, the patient is on ertapenem and Zyvox. We've asked to evaluate and make further recommendations. During my exam today, the patient states that overall he feels much better and is ready to go home. He denies any any fevers or chills or rigors, but does endorse his symptoms as stated above. He denied any abdominal pain or bladder cramping. She had a poor appetite due to nausea and vomiting, but his appetite is back to normal. He states his urine is now clear and not cloudy and no longer foul-smelling. CC: Danny Chapman Past Med Surg Social Fam HX - Past Medical History Attestation: Yes The following information was validated with the patient. Source: patient, old records reviewed, nursing notes reviewed Medical history: asthma, cancer (Bladder cancer post cystectomy), CHF, CVA, hyperlipidemia, hypertension, thyroid disease, other (Spina bifida) Psychiatric history: depression - Past Surgical History Surgical History: appendectomy, orthopedic, other, vasectomy, other (Cystectomy) - Social History Smoking Status: Never smoker Smokeless Tobacco Status: No Alcohol use: none Drug use: none Occupational status: disabled Current living situation: Home - Independent Activity Level: Uses cane/walker Recent Out of Country Travel Within the Last 8 Weeks: No Exposure or Possible Exposure to Illness During Travel: No - Family History Mother Family Member Ethnicity: Non- Living Status: Still Living Hx Family Cardiac Disorders: Yes (HTN) Hx Family Endocrine Disorder: Yes (DM) Hx Family Neurologic Disorders: Yes (Dementia) Sister Family Member Ethnicity: Non- Living Status: Still Living Hx Family Cardiac Disorders: No Hx Family Respiratory Disorders: Yes Hx Family Cancer: No Hx Family GI Disorders: Yes Hx Family Genitourinary Disorders: Yes Hx Family Endocrine Disorder: Yes Hx Family Neuromuscular Disorders: Yes Hx Family Neurologic Disorders: Yes Hx Family Medical Disorders: Yes Brother Family Member Ethnicity: Non- Living Status: Still Living Hx Family Cardiac Disorders: Yes (HTN) Father Family Member Ethnicity: Non- Living Status: Hx Family Cardiac Disorders: Yes (CHF, HTN) Hx Family Respiratory Disorders: Yes (Asthma, emphysema) Hx Family Cancer: Yes (Lung) Hx Family GI Disorders: No Hx Family Endocrine Disorder: Yes Hx Family Neuromuscular Disorders: No Hx Family Neurologic Disorders: No Hx Family HEENT Disorders: No Hx Family Autoimmune Disorders: No Infectious Disease-CN:Meds Fluticasone Propionate Nasal [Flonase] 50 mcg NS DAILY 11/21/15 [History] Potassium Chloride 60 meq PO BID 11/21/15 [History] Cholecalciferol (Vitamin D3) [Vitamin D3] 5,000 unit PO DAILY 11/12/16 [History] Fluticasone Propionate [Flovent Hfa] 2 puff IH BID 11/12/16 [History] Levothyroxine [Synthroid] 200 mcg PO DAILY 11/12/16 [History] Lactobacillus Acidophilus/Fos [Acidophilus Probiotic Tablet] 1 cap PO DAILY 06/17 [History] Loratadine [Claritin] 10 mg PO DAILY 03/08/17 [History] Multivitamin [One Daily Multivitamin] 1 tab PO DAILY 03/08/17 [History] Enalapril Maleate [Vasotec] 10 mg PO DAILY 03/23/17 [History] Saline Nasal [place] [[place] Nasal [place]] 1 spray NS AD 03/23/17 [History] Ipratropium/Albuterol Neb [Duoneb] 3 ml IH [id number] inh 06/14/17 [Rx] Omeprazole [PriLOSEC] 20 mg PO DAILY 08/25/17 [History] Furosemide [Lasix] 40 mg PO DAILY 7 Days #7 tablet 08/30/17 [Rx] Atorvastatin [Lipitor] 40 mg PO HS 11/14/17 [History] 3 Allergy/AdvReac Type Severity Reaction Status Date / Time adhesive Allergy Blister Verified 11/13/17 22:05 Amoxicillin Allergy Hives Verified 11/13/17 22:05 Oxaprozin [From Daypro] AdvReac Diarrhea Verified 11/13/17 22:05 All systems: reviewed and no additional remarkable complaints except as stated Exam - Constitutional Vitals: Temp Pulse Resp BP Pulse Ox 97.6 F 75 16 152/73 98 11/19/17 07:09 11/19/17 07:09 11/19/17 07:51 11/19/17 07:09 11/19/17 07:51 General appearance: cooperative, no acute distress, obese - Head Head exam: Present: atraumatic, normal inspection, normocephalic - Eye Eye exam: Present: EOMI, normal appearance, PERRL Pupils: Present: normal accommodation - ENT ENT exam: Present: mucous membranes moist Additional comments: Very poor dentition noted. - Neck Neck exam: Present: normal inspection - Respiratory Respiratory exam: Present: CTAB. Absent: rales, respiratory distress, rhonchi, wheezes - Cardiovascular Cardiovascular exam: Present: RRR, +S1, +S2 - GI/Abdominal GI/Abdominal exam: Present: distended (obese), normal bowel sounds, soft. Absent: tenderness Additional comments: Urostomy stoma beefy red with clear yellow urine noted in the collection device. - Extremities Exam Extremities exam: Absent: joint swelling, pedal edema, tenderness Additional comments: Stage II ulcer noted to the left posterior thigh with wound bed 100% granulation. No purulence, warmth, erythema, or tenderness noted. - Neurological Exam Neurological exam: Present: alert, oriented X3. Absent: facial droop, speech deficit - Psychiatric Psychiatric exam: Present: normal affect, normal mood - Skin Skin exam: Present: dry, intact, normal color, warm Infectious Disease CN: Results - Labs CBC & Chem 7: 11/19/17 06:00 11/19/17 06:00 Cultures: Cultures 11/14/17 18:10 Wound Culture - Final Left Leg Proteus mirabilis Consult Discharge Plan - Plan Referrals: Maria Elena An MD [Partnered Physician] - 12/03/17 1:00 pm
[2017-11-19 13:05] LABS: Ova & Parasite Stain NEGATIVE (Negative)
[2017-11-19 15:23] VITALS: BP 146/74
--- NOTE | 2017-11-19 15:29 | Discharge Summary ---
Date of Encounter: 11/19/17 Time of Encounter: 10:00 - Discharge Medications Prescriptions: Ertapenem [INVanz] 1,000 mg IVPB DAILY #4 vial Nitrofurantoin (BID) [Macrobid] 100 mg PO BIDWM #14 capsule Home Medications: Fluticasone Propionate Nasal [Flonase] 50 mcg NS DAILY 11/21/15 [History] Potassium Chloride 60 meq PO BID 11/21/15 [History] Cholecalciferol (Vitamin D3) [Vitamin D3] 5,000 unit PO DAILY 11/12/16 [History] Fluticasone Propionate [Flovent Hfa] 2 puff IH BID 11/12/16 [History] Levothyroxine [Synthroid] 200 mcg PO DAILY 11/12/16 [History] Lactobacillus Acidophilus/Fos [Acidophilus Probiotic Tablet] 1 cap PO DAILY 06/17 [History] Loratadine [Claritin] 10 mg PO DAILY 03/08/17 [History] Multivitamin [One Daily Multivitamin] 1 tab PO DAILY 03/08/17 [History] Enalapril Maleate [Vasotec] 10 mg PO DAILY 03/23/17 [History] Saline Nasal [place] [[place] Nasal [place]] 1 spray NS AD 03/23/17 [History] Ipratropium/Albuterol Neb [Duoneb] 3 ml IH [id number] inh 06/14/17 [Rx] Omeprazole [PriLOSEC] 20 mg PO DAILY 08/25/17 [History] Furosemide [Lasix] 40 mg PO DAILY 7 Days #7 tablet 08/30/17 [Rx] Atorvastatin [Lipitor] 40 mg PO HS 11/14/17 [History] Ertapenem [INVanz] 1,000 mg IVPB DAILY #4 vial 11/19/17 [Rx] Nitrofurantoin (BID) [Macrobid] 100 mg PO BIDWM #14 capsule 11/19/17 [Rx] Allergies/Adverse Reactions: 3 Allergy/AdvReac Type Severity Reaction Status Date / Time adhesive Allergy Blister Verified 11/13/17 22:05 Amoxicillin Allergy Hives Verified 11/13/17 22:05 Oxaprozin [From Daypro] AdvReac Diarrhea Verified 11/13/17 22:05 Date of admission: 11/14/17 02:39 Primary care physician: Jaun Price MD Consults: 11/14/17 05:26 Consult to Nutrition [CONS] Routine Comment: Consulting Provider: NUTRITION Reason for Dietary Consult: Diet Education 11/14/17 07:19 Consult to Community Leader [CONS] Routine Reason for SW Consult: Pt very unkempt, possible need for increased home care. 11/14/17 10:09 Consult to Wound Care [CONS] Routine Reason for Consult: CHRONIC WOUND LEFT POSTERIOR THIGH Call Completed: Yes 11/16/17 16:51 Consult to Infectious Diseases [CONS] Routine Consulting Provider: Infectious Disease [place] Reason for Consult: Wound infection/ cellulitis/ recurrent UTI Call Completed: Yes 11/18/17 13:49 Consult to Invasive Line Access Team [CONS] Routine Reason for Consult: POWERGLIDE Line Type: EPIV PICC line indications: Limited vascular access Time Notified: 13:50 Call Completed: Yes - Patient Status Disposition: Home Health Service Condition: Good - Discharge Instructions Follow Up With: Maria Elena An MD [Partnered Physician] - 12/03/17 1:00 pm Hospital course: Patient is a 47-year-old male with past medical history significant for spina bifida, CHF, CVA, HTN, hypothyroidism, type II DM, bladder CA s/p urostomy, who presented to the ER on 11/14/17 with nausea, vomiting, and abdominal pain. Patient states his symptoms started 4-5 days ago. He would experience diffuse abdominal cramps after he would eat and would experience frequent diarrhea. He rated his abdominal pain as a 2/10 in severity, without radiation provoked with eating. He also reported associated symptoms of nausea and vomiting. Patient is also here because of a chronic wound in the back of his L thigh. He stated that he was in a jail for the past 4 months due to the wound. He was discharged home 2 weeks ago and his wound seemed to be healing, but now he reports bleeding, pus, and drainage. In the ER, patient was found to meet SIRS criteria/sepsis secondary to UTI and wound infection. He was admitted to the medical surgical floor for management of UTI and wound infection. During patients hospital stay, his urine grew VRE and was treated with Zyvox; later sensitivities revealed susceptibility to Macrobid and Zyvox discontinued. Wound culture of left lower extremity cellulitis grew Proteus mirabilis and patient was treated with ertapenem. Infectious disease was consulted with recommendations for continued treatment with Macrobid for VRE (7 additional days) and an additional four-day course of ertapenem. Patient will be discharged to continue above treatment and to follow-up with primary care provider in addition to wound clinic. - Time Spent with Patient Total time spent providing and/or coordinating discharge services: Less than 30 minutes - Constitutional Vitals: Temp Pulse Resp BP Pulse Ox 98.1 F 94 16 146/74 98 11/19/17 15:21 11/19/17 15:21 11/19/17 15:21 11/19/17 15:21 11/19/17 15:21 General appearance: Present: A&O X 3, morbidly obese, no acute distress, answers questions appropriately - Respiratory Respiratory exam: Present: CTAB. Absent: accessory muscle use, rales, rhonchi, wheezes
--- NOTE | 2017-11-19 15:30 | Physician Discharge Referral ---
Home Health/Hosp Referral Info Transfer to: Home Health - Respiratory Orders Smoking Cessation: Smoking cessation has been advised. For more information, call the [place] Tobacco Quit Line at 1-192-GUQY-NOW. - Services Needed Following services are medically necessary services: Nursing, Home Infusion - Transfer Medications Prescriptions: Ertapenem [INVanz] 1,000 mg IVPB DAILY #4 vial Nitrofurantoin (BID) [Macrobid] 100 mg PO BIDWM #14 capsule Home Medications: Fluticasone Propionate Nasal [Flonase] 50 mcg NS DAILY 11/21/15 [History] Potassium Chloride 60 meq PO BID 11/21/15 [History] Cholecalciferol (Vitamin D3) [Vitamin D3] 5,000 unit PO DAILY 11/12/16 [History] Fluticasone Propionate [Flovent Hfa] 2 puff IH BID 11/12/16 [History] Levothyroxine [Synthroid] 200 mcg PO DAILY 11/12/16 [History] Lactobacillus Acidophilus/Fos [Acidophilus Probiotic Tablet] 1 cap PO DAILY 06/17 [History] Loratadine [Claritin] 10 mg PO DAILY 03/08/17 [History] Multivitamin [One Daily Multivitamin] 1 tab PO DAILY 03/08/17 [History] Enalapril Maleate [Vasotec] 10 mg PO DAILY 03/23/17 [History] Saline Nasal [place] [[place] Nasal [place]] 1 spray NS AD 03/23/17 [History] Ipratropium/Albuterol Neb [Duoneb] 3 ml IH [id number] inh 06/14/17 [Rx] Omeprazole [PriLOSEC] 20 mg PO DAILY 08/25/17 [History] Furosemide [Lasix] 40 mg PO DAILY 7 Days #7 tablet 08/30/17 [Rx] Atorvastatin [Lipitor] 40 mg PO HS 11/14/17 [History] Ertapenem [INVanz] 1,000 mg IVPB DAILY #4 vial 11/19/17 [Rx] Nitrofurantoin (BID) [Macrobid] 100 mg PO BIDWM #14 capsule 11/19/17 [Rx] Allergies/Adverse Reactions: 3 Allergy/AdvReac Type Severity Reaction Status Date / Time adhesive Allergy Blister Verified 11/13/17 22:05 Amoxicillin Allergy Hives Verified 11/13/17 22:05 Oxaprozin [From Daypro] AdvReac Diarrhea Verified 11/13/17 22:05 Certification: Further, I certify that my clinical findings support that this patient is homebound (i.e. absences from home require considerable and taxing effort and are for medical reasons or anabaptism services or infrequently or short duration when for other reasons) because: Homebound Reason: Leaving home requires considerable and taxing effort due to condition Attestation: My signature below is to certify that this patient is under my care and that I, or nurse practitioner, or a physician's orthopaedic physician assistant working with me, has a face-to -face encounter with this patient.
[2017-11-19] MEDS ORDERED: Nitrofurantoin (BID) 100 MG CAPSULE PO SCH (17:00)
== END 2017-11-19 19:03 | disposition home health service (06) | DRG 871 ==
LOC: EMEROO 21:58 → 2NENU 21:58 → SUATTDRO 11-14 02:39 → 2NENU 11-14 02:55
PROVIDERS: ADMIT Internal Medicine Hematology & Oncology; ATTEND Hospitalist

== ENCOUNTER 2017-12-10 20:40 | Inpatient (IN) ==
--- NOTE | 2017-12-10 23:15 | Emergency Department Note ---
Disposition Clinical Impression: Cough Cellulitis Qualifiers: Site of cellulitis: unspecified site Qualified Code(s): L03.90 - Cellulitis, unspecified Pressure ulcer Qualifiers: Pressure ulcer location: unspecified location Pressure ulcer stage: unspecified pressure ulcer stage Qualified Code(s): L89.90 - Pressure ulcer of unspecified site, unspecified stage Disposition: Admitted As Inpatient Condition: Good Time of Disposition: 04:34 General Adult HPI - General Chief complaint: ED Wound/Laceration Stated complaint: "Left Leg Wound/Infection/N/V" Time Seen by Provider: 12/10/17 22:47 Source: patient, EMS Limitations: no limitations Nursing Notes Reviewed: Yes Vital Signs Reviewed: Yes - History of Present Illness HPI Narrative: Patient is a 47-year-old male that presents to the emergency department for a left leg wound. He states that the leg wound has started to have a worse odor and his home health aide today that he should come to the emergency department seen. He states that it has a mild pain as a 1 out of 10 described as burning. He says that he has decreased sensation in his lower extremities due to having spina bifida. He also states that his left knee has not been functioning well and has been grinding and has been unable to walk. He denies any pain in the knee due to the decreased sensation. States that another doctor has stated that he should have this x-rayed. Patient also reports that he has had episode of vomiting. Pain Scale: 1 - Related Data Home Medications Medication Instructions Recorded Confirmed Fluticasone Propionate Nasal 50 mcg NS DAILY 11/21/15 11/14/17 [Flonase] Potassium Chloride 60 meq PO BID 11/21/15 11/14/17 Cholecalciferol (Vitamin D3) 5,000 unit PO DAILY 11/12/16 11/14/17 [Vitamin D3] Fluticasone Propionate [Flovent 2 puff IH BID 11/12/16 11/14/17 Hfa] Levothyroxine [Synthroid] 200 mcg PO DAILY 11/12/16 11/14/17 Lactobacillus Acidophilus/Fos 1 cap PO DAILY 03/08/17 11/14/17 [Acidophilus Probiotic Tablet] Loratadine [Claritin] 10 mg PO DAILY 03/08/17 11/14/17 Multivitamin [One Daily 1 tab PO DAILY 03/08/17 11/14/17 Multivitamin] Enalapril Maleate [Vasotec] 10 mg PO DAILY 03/23/17 11/14/17 Saline Nasal [place] [[place] Nasal 1 spray NS AD 03/23/17 11/14/17 [place]] Omeprazole [PriLOSEC] 20 mg PO DAILY 08/25/17 11/14/17 Atorvastatin [Lipitor] 40 mg PO HS 11/14/17 11/14/17 Previous Rx's Medication Instructions Recorded Ipratropium/Albuterol Neb [Duoneb] 3 ml IH [id number] inh 06/14/17 Furosemide [Lasix] 40 mg PO DAILY 7 Days #7 tablet 08/30/17 Ertapenem [INVanz] 1,000 mg IVPB DAILY #4 vial 11/19/17 Nitrofurantoin (BID) [Macrobid] 100 mg PO BIDWM #14 capsule 11/19/17 Allergies Allergy/AdvReac Type Severity Reaction Status Date / Time adhesive Allergy Blister Verified 12/10/17 21:23 Amoxicillin Allergy Hives Verified 12/10/17 21:23 Oxaprozin [From Daypro] AdvReac Diarrhea Verified 12/10/17 21:23 All systems ED: reviewed and negative except as stated. Gastrointestinal: Reports: vomiting Integumentary: Reports: lesions Past Medical History - Past Medical History Medical history: Reports: asthma, cancer, CHF, CVA, hyperlipidemia, hypertension , thyroid disease, other Surgical history: Reports: appendectomy, orthopedic, other, vasectomy, other ( Cystectomy) Psychiatric history: Reports: depression - Social History Smoking Status: Never smoker Smokeless Tobacco Status: No Alcohol use: Reports: none Drug use: Reports: none Physical Exam - General Limitations: no limitations General appearance: alert, in no apparent distress - Head Head exam: atraumatic, normocephalic - Eye Eye exam: Present: normal appearance, EOMI - Neck Neck exam: Present: normal inspection, full ROM, trachea midline - Respiratory Respiratory exam: Present: normal lung sounds bilaterally. Absent: respiratory distress, wheezes - Cardiovascular Cardiovascular exam: Present: regular rate, normal rhythm, normal heart sounds, +S1, +S2 - Abdominal Exam Abdominal exam: Present: soft, Non-Tender, normal bowel sounds, other (ostomy bag present for patients bladder) - Extremities Exam Extremities exam: Present: other (Patient has significant edema in bilateral lower extremities). Absent: normal inspection, full ROM, tenderness - Neurological Exam Neurological exam: Present: alert, oriented X3 - Psychiatric Psychiatric exam: Present: normal affect (Patient has wound over the left hip and posterior thigh. There is skin breakdown and has drainage onto bandage. There is a foul odor coming from the wound.), normal mood Course Vital Signs Temperature 97.7 F 12/10/17 21:24 Pulse Rate 120 12/10/17 21:24 Respiratory Rate 18 12/10/17 21:24 Blood Pressure 130/75 12/10/17 21:24 O2 Sat by Pulse Oximetry 99 12/10/17 21:24 Temperature 97.7 F 12/10/17 21:24 Pulse Rate 99 12/11/17 03:55 Respiratory Rate 18 12/11/17 03:55 Blood Pressure 107/51 12/11/17 03:55 O2 Sat by Pulse Oximetry 100 12/11/17 03:55 Oxygen Delivery Oxygen Delivery Room Air Medical Decision Making - MDM Narrative Medical decision making narrative: Due to the patient having a wound on his left posterior hip and thigh will order a CBC, BMP, wound cultures, x-ray of the left hip, femur and knee. We will also order a chest x-ray and EKG. The patient has an elevated white count. We will also do a CT scan of the left lower extremity to rule out osteomyelitis for cellulitis. Doppler pulses of the left and right lower tremors were obtained. Patient had elevated ESR greater than 130. The patient will likely need to be admitted for further evaluation and management for osteomyelitis versus cellulitis. I called and spoke to the hospitalist and they have accepted the patient to their service. They requested that we start Zosyn on this patient but due to the patient being allergic to amoxicillin we have started Linezolid with the vancomycin patient will be admitted to the hospital for further evaluation and management. The patient will be admitted to the hospital at this time for further evaluation and management. - Medical Records Medical records reviewed: Yes I reviewed the patient's medical records. - Lab Data Lab results reviewed: Yes I reviewed the patient's lab results. Result diagrams: 12/11/17 00:10 12/11/17 00:10 Lab Results 12/11/17 12/11/17 12/11/17 Range/Units 00:10 00:10 00:10 WBC 17.7 H (4.3-11.1) K/mcL RBC 4.78 (4.19-5.50) M/mcL Hgb 12.3 L (12.9-16.9) g/dL Hct 39.3 (37.5-50.1) % MCV 82.2 L (83.0-100.0) fL MCH 25.7 L (28.0-33.3) pg MCHC 31.3 L (31.6-35.5) g/dL RDW 16.3 H (11.5-14.5) % Plt Count 368 (140-400) K/mcL MPV 11.2 (9.4-12.4) fL Immature Gran % 2.5 (0-4) % Seg Neutrophils % 72.5 % Lymphocytes % 14.3 % Monocytes % 5.9 % Eosinophils % 3.9 % Basophils % 0.9 % Neutrophils # 12.9 H (1.6-8.9) K/mcL Lymphocytes # 2.5 (0.6-4.6) K/mcL Monocytes # 1.1 (0.0-1.3) K/mcL Eosinophils # 0.7 H (0.0-0.6) K/mcL Basophils # 0.2 (0.0-0.2) K/mcL Nucleated RBCs/100 WBC 0.1 H (0) /100 WBC ESR (0-10) mm/hr Sodium 138 (136-145) mEq/L Potassium 4.8 (3.5-5.1) mEq/L Chloride 106 (98-107) mEq/L Carbon Dioxide 21 L (23-29) mEq/L BUN 13 (6-20) mg/dL Creatinine 0.94 (0.70-1.30) mg/dL Est GFR ( Amer) > 60 (> 60) Est GFR (Non-Af Amer) > 60 (> 60) BUN/Creatinine Ratio 14 (6-26) Glucose 126 H (70-105) mg/dL Calculated Osmolality 288 (280-300) Calcium 9.2 (8.6-10.3) mg/dL Specimen Rejected Volume 12/11/17 Range/Units 00:38 WBC (4.3-11.1) K/mcL RBC (4.19-5.50) M/mcL Hgb (12.9-16.9) g/dL Hct (37.5-50.1) % MCV (83.0-100.0) fL MCH (28.0-33.3) pg MCHC (31.6-35.5) g/dL RDW (11.5-14.5) % Plt Count (140-400) K/mcL MPV (9.4-12.4) fL Immature Gran % (0-4) % Seg Neutrophils % % Lymphocytes % % Monocytes % % Eosinophils % % Basophils % % Neutrophils # (1.6-8.9) K/mcL Lymphocytes # (0.6-4.6) K/mcL Monocytes # (0.0-1.3) K/mcL Eosinophils # (0.0-0.6) K/mcL Basophils # (0.0-0.2) K/mcL Nucleated RBCs/100 WBC (0) /100 WBC ESR >= 130 H (0-10) mm/hr Sodium (136-145) mEq/L Potassium (3.5-5.1) mEq/L Chloride (98-107) mEq/L Carbon Dioxide (23-29) mEq/L BUN (6-20) mg/dL Creatinine (0.70-1.30) mg/dL Est GFR ( Amer) (> 60) Est GFR (Non-Af Amer) (> 60) BUN/Creatinine Ratio (6-26) Glucose (70-105) mg/dL Calculated Osmolality (280-300) Calcium (8.6-10.3) mg/dL Specimen Rejected - Radiology Data Radiology results reviewed: Yes I reviewed the patient's radiology results. Femur X-Ray 12/10/17 23:07 IMPRESSION: No acute osseous abnormality of the pelvis. No acute osseous abnormality of the left femur. No acute osseous abnormality of the left knee. Moderately severe tricompartment osteoarthritic changes with progression. D/ / Tree Lara MD / Tree Lara MD Interpreting Provider: Tree Lara MD Knee X-Ray 12/10/17 23:07 IMPRESSION: No acute osseous abnormality of the pelvis. No acute osseous abnormality of the left femur. No acute osseous abnormality of the left knee. Moderately severe tricompartment osteoarthritic changes with progression. D/ / Tree Lara MD / Tree Lara MD Interpreting Provider: Tree Lara MD Pelvis X-Ray 12/10/17 23:07 IMPRESSION: No acute osseous abnormality of the pelvis. No acute osseous abnormality of the left femur. No acute osseous abnormality of the left knee. Moderately severe tricompartment osteoarthritic changes with progression. D/ / Tree Lara MD / Tree Lara MD Interpreting Provider: Tree Lara MD Chest X-Ray 12/10/17 23:22 IMPRESSION: Low lung volumes likely contribute to bilateral bronchopulmonary crowding without convincing evidence of acute cardiopulmonary process. Consider correlation with PA and lateral radiographs as indicated. D/ / Daniel Red / Daniel Red Interpreting Provider: Daniel Red Lower Extremity CT 12/11/17 01:21 IMPRESSION: Soft-tissue swelling with no definite evidence for osteomyelitis. Three-phase bone scan would be more sensitive. D/ / Joe Escobedo MD / Joe Escobedo MD Interpreting Provider: Joe Escobedo MD - EKG Data EKG #1 EKG attestation: Yes I reviewed and interpreted this EKG. EKG results narrative: EKG showed a sinus rhythm at a rate of 91 bpm, PA interval of 129, QRS duration of 93, QTc of 404 with a normal axis. Attestation Statement - Attestation Attestation: I, Kelechi Castillo DO, examined this patient [id number] and my medical decision-making was reviewed with Dr. Quan Collins, Resident Physician. I agree with the documented findings, disposition and treatment plan as described except to the extent set forth below. Please see my progress notes for details. 47-year-old male presents to emergency room for evaluation of lower extremity cellulitis and wound. Patient is a noncompliant gentleman. He has chronic medical issues. She does not treat his wounds and medical issues appropriately. He presents here today with progressive deterioration the skin over the posterior aspect of his back with scaling to the skin open wound areas. He also has an open wound is distal aspect of his left foot. Patient denies any fevers or chills nausea vomiting or diarrhea. Denies chest pain shortness of breath headache or vision changes. He has had a cough. Vital signs reviewed and are otherwise unremarkable this point. Patient is stable. Patient's lungs are clear heart is regular. Abdomen soft nontender nondistended. Bilateral lower extremities do show some dependent swelling that appears to be symmetrical bilateral. There is a cool sensation to the skin but there is no mottling or dusky color noted at this time. Pulses will be dopplered here in the emergency room for definitive evaluation. Patient has what appears to be pressure related skin deterioration of the posterior aspect the left leg in the posterior aspect of the left foot. The left foot is open and does have some moist tissue deterioration to the surface of the skin. Patient had a wound swab. Laboratory workup including CBC chemistry and ESR were ordered. ESR is greater than 100 patient does have a slightly elevated white blood cell count. Chest x-ray is unremarkable. EKG shows sinus tachycardia. Concern is noted that the patient has some infectious etiology in the lower extremity patient is concerning for osteomyelitis or cellulitis to the skin. Detailed evaluation will be completed a CT scan of the lower extremities. Imaging of the bones of the lower extremities do not show any acute pathology or fracture. Patient will most likely admission for definitive management of what appears to be superficial cellulitis skin deterioration secondary to excoriation from urine and his chronic incontinence. Patient reported a projected course of care plan. Patient understands this is palpable with her treatment course. No other concerns or issues noted at this point. See detailed documentation of physical exam, medical intervention, medical decision-making and disposition in the resident physician's note. 0250 Patient found to have what appears to be inflammation of the skin. ESR is significantly elevated with a white blood cell count. Concern is noted for cellulitic-like presentation and poor skin deterioration with poor hygiene. Patient will be admitted for observation and evaluation with IV antibiotics and possible surgical consult. Patient informed. Hospital was contacted and admission process completed.
[2017-12-11 00:26] LABS: Basophils # 0.2 K/mcL (0.0-0.2); Basophils % 0.9 %; Eosinophils # 0.7 K/mcL (0.0-0.6); Eosinophils % 3.9 %; Hematocrit 39.3 % (37.5-50.1); Hemoglobin 12.3 g/dL (12.9-16.9); Immature Granulocytes % 2.5 % (0-4); Lymphocytes # 2.5 K/mcL (0.6-4.6); Lymphocytes % 14.3 %; Mean Corpuscular HGB Conc 31.3 g/dL (31.6-35.5); Mean Corpuscular Hemoglobin 25.7 pg (28.0-33.3); Mean Corpuscular Volume 82.2 fL (83.0-100.0); Mean Platelet Volume 11.2 fL (9.4-12.4); Monocytes # 1.1 K/mcL (0.0-1.3); Monocytes % 5.9 %; Neutrophils # 12.9 K/mcL (1.6-8.9); Nucleated Red Blood Cells 0.1 /100 WBC (0); Platelet Count 368 K/mcL (140-400); Red Blood Count 4.78 M/mcL (4.19-5.50); Red Cell Distribution Width 16.3 % (11.5-14.5); Segmented Neutrophils % 72.5 %
[2017-12-11 01:10] LABS: BUN/Creatinine Ratio 14 (6-26); Blood Urea Nitrogen 13 mg/dL (6-20); Calcium 9.2 mg/dL (8.6-10.3); Carbon Dioxide 21 mEq/L (23-29); Chloride 106 mEq/L (98-107); Glucose 126 mg/dL (70-105); Osmolality,Calculated 288 (280-300); Potassium 4.8 mEq/L (3.5-5.1); Sodium 138 mEq/L (136-145); eGFR For African Americans > 60 (> 60); eGFR For Non-African Americans > 60 (> 60)
[2017-12-11] MEDS ORDERED: Vancomycin 1,750 MG in D5% in Water 250 ML IVPB ONE (01:15)
[2017-12-11] MEDS ORDERED: Vancomycin 1,750 MG in D5% in Water 500 ML IVPB ONE (02:00)
--- NOTE | 2017-12-11 12:18 | Electrocardiograph Report ---
[place] [id number] Test Date: 2017-12-11 Pat Name: Sammy Leone Department: 104 Room: 2A45 Gender: M Orthopedic Specialist: GRAEME : 1970 Requested By: Quan Collins Order Number: [id number] Reading MD: Jason Gipson DO Measurements Intervals [place] Rate: 91 P: 25 ME: 129 QRS: 45 QRSD: 93 T: 31 QT: 355 QTc: 404 Interpretive Statements SINUS RHYTHM Electronically Signed On 12-11-2017 12:17:08 EST by Jason Gipson DO
[2017-12-11] MEDS ORDERED: Naloxone 0.4 MG/ML INJ IVP PRN (12:59)
--- NOTE | 2017-12-11 13:09 | Internal Med History&Physical ---
Date of Encounter: 12/11/17 Time of Encounter: 13:07 Assessment and Plan (1) Pressure ulcer of left heel, stage 3 Current visit: Yes Status: Acute Wound care ordered Continue Zyvox and Ertapenem given recent cultures. Wound and blood cultures pending. Consult ID (2) Decubitus ulcer of left thigh, stage 3 Current visit: No Status: Chronic Wound and blood cultures pending. Zyvox and Ertapenem. ID consult and wound care (3) Spina bifida Current visit: No Status: Chronic PT and OT when possible Qualifiers: Spinal region: lumbosacral Presence of hydrocephalus: unspecified hydrocephalus presence Qualified Code(s): Q05.7 - Lumbar spina bifida without hydrocephalus (4) Diabetes Current visit: No Status: Chronic Continue home antihyperglycemic medications with addition of SSI Qualifiers: Diabetes mellitus type: type 2 Diabetes mellitus complication status: with skin complications Diabetes mellitus complication detail: with other skin ulcer Diabetes mellitus terminal clerk insulin use: unspecified senior living insulin use status Qualified Code(s): E11.622 - Type 2 diabetes mellitus with other skin ulcer; L98.499 - Non-pressure chronic ulcer of skin of other sites with unspecified severity (5) URI (upper respiratory infection) Current visit: No Status: Acute LCTAB and CXR neg. Treat syptomatically Qualifiers: URI type: unspecified viral URI Qualified Code(s): J06.9 - Acute upper respiratory infection, unspecified; B97.89 - Other viral agents as the cause of diseases classified elsewhere; B97.89 - Other viral agents as the cause of diseases classified elsewhere (6) History of urostomy Current visit: Yes Status: Acute History of urostomy s/p bladder cancer and cystectomy. History of recent VRE and Proteus UTI. Check UA but on Zyvox and Ertapenem. Internal Medicine - H&P: HPI Chief complaint: Left posterior thigh wound with cellulitis and left heal pressure sore History of present illness: The patient is a 47 yr old man who presents in the ER with a 3 day history of pressure sore involvint his left heal and cellulitis with left posterior thigh wounds. He has finished a course of Ertapenem and Zyvox 2-3 days ago and began noticing a foul odor from his thigh wounds which have been previously treated by ID and followed at the wound clinic. He was recently admitted in November with a VRE and Proteus m. UTI and has a history of MRSA infection. He has Spina bifida with decreased sensation of both lower extremities so has not noticed increased pain. His WBC is elevated to 17.7 and his ESR > 130. No definitive signs of osteomyletis were noted on the CT-lower extremity scan (L). He also has a mild URI and a nonproductive cough. His CXR did not show any acute process. He was given does of Zyvox and Vancomycin this am. He's currently hemodynamically stable. Past Med Surg Social Fam HX - Past Medical History Medical history: asthma, cancer, CHF, CVA, hyperlipidemia, hypertension, thyroid disease, other Psychiatric history: depression - Past Surgical History Surgical History: appendectomy, orthopedic, other, vasectomy, other - Social History Smoking Status: Never smoker Smokeless Tobacco Status: No Alcohol use: none Drug use: none - Family History Mother Family Member Ethnicity: Non- Living Status: Still Living Hx Family Cardiac Disorders: Yes (HTN) Hx Family Endocrine Disorder: Yes (DM) Hx Family Neurologic Disorders: Yes (Dementia) Sister Family Member Ethnicity: Non- Living Status: Still Living Hx Family Cardiac Disorders: No Hx Family Respiratory Disorders: Yes Hx Family Cancer: No Hx Family GI Disorders: Yes Hx Family Endocrine Disorder: Yes Hx Family Neuromuscular Disorders: Yes Hx Family Neurologic Disorders: Yes Brother Family Member Ethnicity: Non- Living Status: Still Living Hx Family Cardiac Disorders: Yes (HTN) Father Family Member Ethnicity: Non- Living Status: Hx Family Cardiac Disorders: Yes (CHF, HTN) Hx Family Respiratory Disorders: Yes (Asthma, emphysema) Hx Family Cancer: Yes (Lung) Hx Family GI Disorders: No Hx Family Endocrine Disorder: Yes Hx Family Neuromuscular Disorders: No Hx Family Neurologic Disorders: No Hx Family HEENT Disorders: No Hx Family Autoimmune Disorders: No Internal Medicine - H&P: Meds Fluticasone Propionate Nasal [Flonase] 50 mcg NS DAILY 11/21/15 [History] Potassium Chloride 60 meq PO BID 11/21/15 [History] Cholecalciferol (Vitamin D3) [Vitamin D3] 5,000 unit PO DAILY 11/12/16 [History] Fluticasone Propionate [Flovent [place]] 2 puff IH BID 11/12/16 [History] Levothyroxine [Synthroid] 200 mcg PO DAILY 11/12/16 [History] Lactobacillus Acidophilus/Fos [Acidophilus Probiotic Tablet] 1 cap PO DAILY 06/17 [History] Loratadine [Claritin] 10 mg PO DAILY 03/08/17 [History] Multivitamin [One Daily Multivitamin] 1 tab PO DAILY 03/08/17 [History] Enalapril Maleate [Vasotec] 10 mg PO DAILY 03/23/17 [History] Saline Nasal [place] [[place] Nasal [place]] 1 spray NS AD 03/23/17 [History] Ipratropium/Albuterol Neb [Duoneb] 3 ml IH [id number] inh 06/14/17 [Rx] Omeprazole [PriLOSEC] 20 mg PO DAILY 08/25/17 [History] Furosemide [Lasix] 40 mg PO DAILY 7 Days #7 tablet 08/30/17 [Rx] Atorvastatin [Lipitor] 40 mg PO HS 11/14/17 [History] Ertapenem [INVanz] 1,000 mg IVPB DAILY #4 vial 11/19/17 [Rx] Nitrofurantoin (BID) [Macrobid] 100 mg PO BIDWM #14 capsule 11/19/17 [Rx] 3 Allergy/AdvReac Type Severity Reaction Status Date / Time adhesive Allergy Blister Verified 12/10/17 21:23 Amoxicillin Allergy Hives Verified 12/10/17 21:23 Oxaprozin [From Daypro] AdvReac Diarrhea Verified 12/10/17 21:23 All Systems PM: A 10-system review of systems was performed and is negative for pertinent findings except as documented above in the HPI. - Constitutional Additional comments: A&O x3 in no acute distress - Breasts Additional comments: PERRLA with full EOM. No scleral icterus. No oral or perioral lesions. - Cardiovascular Additional comments: RRR without murmur, rubs or gallups - Respiratory Additional comments: LCTAB without wheezing, rales or rhonchi - Gastrointestinal Additional comments: Abdomen soft, nondistended, nontender with nl BS all 4 quads. - Genitourinary Additional comments: Urostomy bad looks clean without surrounding erythema or signs of infection - Integumentary Additional comments: He has a left heal wound with erythema and serosanginous drainage. It has a foul odor and is warm to touch. He has two wounds on the posterior and lateral left thigh which have purulent drainage and a foul odor. There is surrounding erythema around both wounds. - Psychiatric Additional comments: Normal affect without abnormal behavior. - Constitutional Vitals: Temp Pulse Resp BP Pulse Ox 97.6 F 84 18 97/65 96 12/11/17 11:06 12/11/17 11:06 12/11/17 11:06 12/11/17 11:06 12/11/17 11:06 General appearance: Present: A&O X 3, no acute distress - Head Head exam: Present: atraumatic, normocephalic - Eye Eye exam: Present: EOMI, normal appearance, PERRL - ENT ENT exam: Present: mucous membranes moist, normal oropharynx - Neck Neck exam general surgery: Present: normal inspection, supple, trachea midline - Respiratory Respiratory exam: Present: CTAB - Cardiovascular Cardiovascular exam: Present: RRR, +S1, +S2 - GI/Abdominal GI/Abdominal exam: Present: normal bowel sounds, soft - Extremities Exam Additional comments: Left heel has pressure sore with surrounding erythema and drainage. Left posterior and lateral thigh wounds with surrounding erythema and drainage as well as foul odor and warmth - Neurological Exam Additional comments: Decreased lower extremity sensation and weakness associated with Spina bifida. - Psychiatric Additional comments: Normal affect Internal Med - H&P Results - Labs CBC & Chem 7: 12/11/17 00:10 12/11/17 00:10
--- NOTE | 2017-12-11 15:16 | Infectious Disease Consult ---
Date of Encounter: 12/11/17 Time of Encounter: 15:14 Assessment and Plan (1) Sepsis Status: Resolved Assessment and plan: The patient had two SIRS criteria on admission. Etiology not clear: URI vs. cellulitisvs. other. Improved. Tachycardia resolved. WBC elevated. No blood cultures were drawn. Get blood cultures x 2 sets now. Check lactic acid now. Will defer fluid resuscitation to the primary team. Qualifiers: Sepsis type: sepsis due to unspecified organism Qualified Code(s): A41.9 - Sepsis, unspecified organism (2) URI (upper respiratory infection) Status: Acute Assessment and plan: Could be contributing to the patient's leukocytosis. Likely viral. Check RIP. Continue supportive care. Qualifiers: URI type: unspecified viral URI Qualified Code(s): J06.9 - Acute upper respiratory infection, unspecified; B97.89 - Other viral agents as the cause of diseases classified elsewhere; B97.89 - Other viral agents as the cause of diseases classified elsewhere (3) Ulcer of left heel Status: Acute Assessment and plan: Stage II. Likely secondary to sedentary lifestyle. Clinically, does not appear infected, but the patient reports that the ulcers came back after being healed and there was a foul smell and drainage and his ESR >130. CT of the LLE was negative for OM or abscess. Check CRP. If no other reason for elevated ESR and WBC can be found, may need to consider bone scan to evaluate for underlying OM. The patient does have hardware that has been in since he was a baby. Recommend wound care to evaluate and make recommendations. I anticipate that the patient also has underlying venous insufficiency that leads to the swelling of the BLE and his non-healing ulcers. The patient also has a history of poor personal hygiene that likely plays a part as well. Start Ertapenem 1 gram IV daily for now. Discontinue linezolid. Duration of treatment depends on the clinical picture. Monitor renal function and dose-adjust antibiotics. Qualifiers: Non-pressure ulcer stage: limited to breakdown of skin Qualified Code(s): L97.421 - Non-pressure chronic ulcer of left heel and midfoot limited to breakdown of skin (4) Ulcer of left thigh Status: Acute Assessment and plan: Location: Left posterior thigh. Likely secondary to sedentary lifestyle and altered ability to ambulate. Clinically, does not appear infected, but the patient reports that the ulcers came back after being healed and there was a foul smell and drainage and his ESR >130. CT of the LLE was negative for OM or abscess. Check CRP. If no other reason for elevated ESR and WBC can be found, may need to consider bone scan to evaluate for underlying OM. The patient does have hardware that has been in since he was a baby. Recommend wound care to evaluate and make recommendations. I anticipate that the patient also has underlying venous insufficiency that leads to the swelling of the BLE and his non-healing ulcers. The patient also has a history of poor personal hygiene that likely plays a part as well. Start Ertapenem 1 gram IV daily for now. Discontinue linezolid. Duration of treatment depends on the clinical picture. Monitor renal function and dose-adjust antibiotics. Qualifiers: Non-pressure ulcer stage: limited to breakdown of skin Qualified Code(s): L97.121 - Non-pressure chronic ulcer of left thigh limited to breakdown of skin (5) Bilateral lower extremity edema Status: Acute Assessment and plan: Likely multifactorial: venous insufficiency + dependent edema. Consider compression hose/dressings to assist with swelling. Management per the primary team. (6) Cough Status: Acute Assessment and plan: Chest XR negative. Check RIP. (7) History of urostomy Status: Acute (8) Morbid obesity with BMI of 40.0-44.9, adult Status: Chronic (9) Type 2 diabetes mellitus Status: Chronic Assessment and plan: Recommend aggressive glucose monitoring and control to promote wound healing and prevent re-infection. Management per the primary team. Qualifiers: Diabetes mellitus complication status: with unspecified complications Diabetes mellitus care home insulin use: without packing machine feeder use Qualified Code( s): E11.8 - Type 2 diabetes mellitus with unspecified complications (10) Left knee pain Status: Acute Assessment and plan: Left knee XR negative for osseous changes. Consider outpatient ortho evaluation. CT LE negative for septic arthritis. Pain management per the primary team. Qualifiers: Chronicity: acute Qualified Code(s): M25.562 - Pain in left knee Infectious Disease HPI - Data of Consult Patient: known to practice within the last 3 years Consult date: 12/11/17 Requesting Physician: Nelson Meyer Primary Care Provider: Jaun Price MD - Consult Narrative Reason for consult: Cellulitis History of present illness: Mr. Leone is a 47 year old male with a past medical history of asthma, bladder cancer with cystectomy and urostomy, CHF, CVA, HLD, HTN, and hypothyroidism. The patient was admitted to the hospital 12/10/17 for LLE cellulitis. We are consulted 12/11/17 for antibiotic recommendations. Briefly, the patient's a 47-year-old male with past medical history as stated above. The patient is well-known to the infectious disease service as we've been consulted on this case multiple times for [id number] urinary tract infections and wound infections. Most recently, the patient was hospital his back in November he was noted to have a urinary tract infection with Proteus Jose and VRE. He also had a left posterior thigh wound infection with Proteus that was multidrug resistant. He will at that time, he was treated with oral nitrofurantoin and IV ertapenem. He finished IV antibiotics, blood days prior to admission and states he had progressive swelling to his bilateral lower extremities that caused reopening of ulcers to his left posterior heel and left posterior thigh. He reports that there was a foul odor and drainage. He presented to the emergency department area he was afebrile, but did have tachycardia and leukocytosis. Wound culture was obtained. He had x-rays of the left femur, knee, and pelvis which were all negative. He also had a chest x-ray that was negative. He had a left lower survey CT scan that was negative for ostomy myelitis or abscess. He was given a dose of IV Zyvox and IV vancomycin was admitted to the hospital for further evaluation. Since admission, the patient's antibiotics were switched to IV linezolid. He is noted to have a leukocytosis with a white blood cell count of 17,000. He also had ESR greater than 130. We've been asked to evaluate and make further recommendations. During my exam today, the patient endorses a history as stated above. Additionally, he reports sinus congestion, sore throat, earache, and a cough productive of white sputum. He denies any fevers or chills or rigors. He denies any headache or neck pain. He denies any chest pain or shortness of breath. He denies any nausea or vomiting, but does report some diarrhea. He denies abdominal pain. He denies any urinary complaints. He states that his noticed that his urine was a little bit darker and did have a different smell, but there is no cloudiness or abdominal pain. He does complain of pain in the left knee that is started over the course of the past month or so, but he denies any marked redness or swelling or warmth. The patient lives at home with his family. He does not smoke, drink alcohol, or do drugs. He reports he has seen wound care one time since discharge from the hospital in November. CC: Nelson Meyer Past Med Surg Social Fam HX - Past Medical History Attestation: Yes The following information was validated with the patient. Source: patient, old records reviewed, nursing notes reviewed Medical history: asthma, cancer (Bladder cancer s/p cystectomy), CHF, CVA, hyperlipidemia, hypertension, thyroid disease, other Psychiatric history: depression - Past Surgical History Surgical History: appendectomy, orthopedic, other (Hardware in the BLE), vasectomy, other (Cystectomy) - Social History Smoking Status: Never smoker Smokeless Tobacco Status: No Alcohol use: none Drug use: none Occupational status: disabled Current living situation: Home, With Family Activity Level: Uses cane/walker Recent Out of Country Travel Within the Last 8 Weeks: No Exposure or Possible Exposure to Illness During Travel: No - Family History Mother Family Member Ethnicity: Non- Living Status: Still Living Hx Family Cardiac Disorders: Yes (HTN) Hx Family Endocrine Disorder: Yes (DM) Hx Family Neurologic Disorders: Yes (Dementia) Sister Family Member Ethnicity: Non- Living Status: Still Living Hx Family Cardiac Disorders: No Hx Family Respiratory Disorders: Yes Hx Family Cancer: No Hx Family GI Disorders: Yes Hx Family Endocrine Disorder: Yes Hx Family Neuromuscular Disorders: Yes Hx Family Neurologic Disorders: Yes Brother Family Member Ethnicity: Non- Living Status: Still Living Hx Family Cardiac Disorders: Yes (HTN) Father Family Member Ethnicity: Non- Living Status: Hx Family Cardiac Disorders: Yes (CHF, HTN) Hx Family Respiratory Disorders: Yes (Asthma, emphysema) Hx Family Cancer: Yes (Lung) Hx Family GI Disorders: No Hx Family Endocrine Disorder: Yes Hx Family Neuromuscular Disorders: No Hx Family Neurologic Disorders: No Hx Family HEENT Disorders: No Hx Family Autoimmune Disorders: No Infectious Disease-CN:Meds Fluticasone Propionate Nasal [Flonase] 50 mcg NS DAILY 11/21/15 [History] Potassium Chloride 60 meq PO BID 11/21/15 [History] Cholecalciferol (Vitamin D3) [Vitamin D3] 5,000 unit PO DAILY 11/12/16 [History] Fluticasone Propionate [Flovent Hfa] 2 puff IH BID 11/12/16 [History] Levothyroxine [Synthroid] 200 mcg PO DAILY 11/12/16 [History] Lactobacillus Acidophilus/Fos [Acidophilus Probiotic Tablet] 1 cap PO DAILY 06/17 [History] Loratadine [Claritin] 10 mg PO DAILY 03/08/17 [History] Multivitamin [One Daily Multivitamin] 1 tab PO DAILY 03/08/17 [History] Enalapril Maleate [Vasotec] 10 mg PO DAILY 03/23/17 [History] Saline Nasal [place] [[place] Nasal [place]] 1 spray NS AD 03/23/17 [History] Ipratropium/Albuterol Neb [Duoneb] 3 ml IH [id number] inh 06/14/17 [Rx] Omeprazole [PriLOSEC] 20 mg PO DAILY 08/25/17 [History] Furosemide [Lasix] 40 mg PO DAILY 7 Days #7 tablet 08/30/17 [Rx] Atorvastatin [Lipitor] 40 mg PO HS 11/14/17 [History] Ertapenem [INVanz] 1,000 mg IVPB DAILY #4 vial 11/19/17 [Rx] Nitrofurantoin (BID) [Macrobid] 100 mg PO BIDWM #14 capsule 11/19/17 [Rx] 3 Allergy/AdvReac Type Severity Reaction Status Date / Time adhesive Allergy Blister Verified 12/10/17 21:23 Amoxicillin Allergy Hives Verified 12/10/17 21:23 Oxaprozin [From Daypro] AdvReac Diarrhea Verified 12/10/17 21:23 All systems: reviewed and no additional remarkable complaints except as stated Exam - Constitutional Vitals: Temp Pulse Resp BP Pulse Ox 97.6 F 84 18 97/65 96 12/11/17 11:06 12/11/17 11:06 12/11/17 11:06 12/11/17 11:06 12/11/17 11:06 General appearance: cooperative, no acute distress, obese - Head Head exam: Present: atraumatic, normal inspection, normocephalic - Eye Eye exam: Present: EOMI, normal appearance, PERRL Pupils: Present: normal accommodation - ENT ENT exam: Present: mucous membranes moist Additional comments: Very poor dentition noted. - Neck Neck exam: Present: normal inspection - Respiratory Respiratory exam: Present: CTAB. Absent: rales, respiratory distress, rhonchi, wheezes - Cardiovascular Cardiovascular exam: Present: RRR, +S1, +S2 - GI/Abdominal GI/Abdominal exam: Present: distended (obese), normal bowel sounds, soft. Absent: tenderness Additional comments: Urostomy noted to the RLQ with collection appliance intact. Stoma beefy red. Urine clear. - Extremities Exam Extremities exam: Present: pedal edema (2+ BLE, left>right). Absent: joint swelling, tenderness Additional comments: Stage II ulcer noted to the left posterior thigh with wound bed 100% granulation tissue. No active drainage noted. No surrounding erythema noted. Stage II ulcer noted to the left posterior heel without erythema noted. No drainage noted. No tenderness of fluctuance noted. - Neurological Exam Neurological exam: Present: alert, oriented X3. Absent: facial droop, speech deficit - Psychiatric Psychiatric exam: Present: normal affect, normal mood - Skin Skin exam: Present: dry, intact, normal color, warm Infectious Disease CN: Results - Labs CBC & Chem 7: 12/11/17 00:10 12/11/17 00:10 Consult Discharge Plan - Plan Referrals: Jaun Price MD [Primary Care Provider] - (ECF?) - Attending Attestation I examined this patient and my medical decision-making was reviewed with the Resident Physician. I agree with the documented findings, disposition and treatment plan as described except to the extent set forth below. This is an addendum to original report dictated by Amie Dockery CNP. Please refer to Carrol burgess for full detail. Patient is a 47-year-old gentleman presents as a past medical history mentioned below including spina bifida with minimal sensation in his lower extremities also has had recurrent UTI and has a urostomy to. Patient also had a cystectomy in the past due to some kind of malignancy. Apparently patient was admitted to [facility] in November for lower posterior thigh ulcer. Cultures at that time were done and showed Proteus that was ESBL. Patient was treated appropriately and discharged home. Patient was supposed to follow up with wound care and continued to do wound care but he was a no-show and he doesnt do what he needs done at home. There is noncompliance issues which I think us to do with lack of resources. Patient came in he was afebrile but tachycardic with leukocytosis. Of note also that his ESR is over 1:30. Patient running nose sore throat and cough and sinus pressure. Patient denies any sick contacts. At this time on physical exam really has minimal wound on the left thigh which is about 0.5 cm in width and about 2 cm in length and stage II with no drainage no fluctuance no surrounding erythema. Patient also has another she was also on the left heel which is about 1-1-1/2 cm in diameter that is dry with no surrounding erythema no fluctuance. Patient also has severe onychomycosis bilateral lower extremities. At this point I really seeing the best thing we can do this stop the Zyvox. Cultures have been swab which I think its just didnt show skin karoline. Patient needs aggressive wound care and maybe an air mattress. I even question whether we need to do the ertapenem at this point. Well probably see in the day if he clinically continues to do well. Ill ask for the URI symptoms I will check respiratory infectious panel. Duration of treatment depends on the clinical picture. Patient is in isolation because of recent history of VRE.
[2017-12-11] MEDS: Gentamicin Oint 15 GM TUBE TP SCH (18:07)
[2017-12-11] MEDS: *HR* Heparin 5,000 UNIT/ML VIAL SQ SCH (18:08)
[2017-12-11] MEDS: Ertapenem 1,000 MG in 0.9 % Sodium Chloride Mini Bag 100 ML IVPB SCH (18:08)
[2017-12-12] MEDS: *HR* Heparin 5,000 UNIT/ML VIAL SQ SCH ×2 (05:53→16:51)
[2017-12-12 06:01] LABS: Basophils # 0.1 K/mcL (0.0-0.2); Basophils % 0.8 %; Eosinophils # 0.6 K/mcL (0.0-0.6); Hematocrit 33.4 % (37.5-50.1); Immature Granulocytes % 0.3 % (0-4); Lymphocytes # 1.5 K/mcL (0.6-4.6); Lymphocytes % 16.8 %; Mean Corpuscular HGB Conc 30.8 g/dL (31.6-35.5); Mean Corpuscular Hemoglobin 25.3 pg (28.0-33.3); Mean Corpuscular Volume 82.1 fL (83.0-100.0); Mean Platelet Volume 10.7 fL (9.4-12.4); Monocytes # 0.7 K/mcL (0.0-1.3); Monocytes % 7.4 %; Neutrophils # 6.1 K/mcL (1.6-8.9); Platelet Count 326 K/mcL (140-400); Red Blood Count 4.07 M/mcL (4.19-5.50); Red Cell Distribution Width 16.4 % (11.5-14.5); Segmented Neutrophils % 67.7 %
[2017-12-12 06:05] LABS: Hemoglobin 10.3 g/dL (12.9-16.9)
[2017-12-12 06:11] LABS: eGFR For African Americans > 60 (> 60); eGFR For Non-African Americans > 60 (> 60)
[2017-12-12 06:13] LABS: BUN/Creatinine Ratio 15 (6-26); Blood Urea Nitrogen 13 mg/dL (6-20); Calcium 8.9 mg/dL (8.6-10.3); Carbon Dioxide 24 mEq/L (23-29); Chloride 104 mEq/L (98-107); Glucose 153 mg/dL (70-105); Magnesium 1.6 mg/dL (1.6-2.6); Osmolality,Calculated 287 (280-300); Potassium 3.5 mEq/L (3.5-5.1); Sodium 137 mEq/L (136-145); eGFR For African Americans > 60 (> 60); eGFR For Non-African Americans > 60 (> 60)
[2017-12-12] MEDS: Ertapenem 1,000 MG in 0.9 % Sodium Chloride Mini Bag 100 ML IVPB SCH (09:29)
[2017-12-12] MEDS: Gentamicin Oint 15 GM TUBE TP SCH (09:30)
--- NOTE | 2017-12-12 10:05 | Internal Med Progress Note ---
<Delgado Whatley - Last Filed: 12/12/17 15:39> Date of Encounter: 12/12/17 Time of Encounter: 10:03 - Assessment and plan (1) Sepsis Current Visit: Yes Status: Resolved Assessment and plan: Initially patient presented with leukocytosis, tachycardia. Etiology is upper respiratory infection, cellulitis ESR is greater than 1:30 and concern for osteomyelitis. Her CT has been negative. Tachycardia and possible has normalized. Blood cultures pending. Currently and ertapenem. Qualifiers: Sepsis type: sepsis due to unspecified organism Qualified Code(s): A41.9 - Sepsis, unspecified organism (2) Decubitus ulcer of left buttock Current Visit: Yes Status: Chronic Assessment and plan: Stage II Dressed. CT of lower extremity negative for osteomyelitis. X-ray of pelvis and femur negative for fracture Wound care following. Cultures pending. Continue ertapenem. Appreciate infectious disease consult. Qualifiers: Pressure ulcer stage: stage 2 Qualified Code(s): L89.322 - Pressure ulcer of left buttock, stage 2 (3) Ulcer of left heel Current Visit: Yes Status: Acute Assessment and plan: Stage II Dressed. [address] of lower extremity negative for osteomyelitis. X-ray of pelvis and femur negative for fracture Wound care following. Cultures pending. Continue ertapenem. Appreciate infectious disease consult. Qualifiers: Non-pressure ulcer stage: limited to breakdown of skin Qualified Code(s): L97.421 - Non-pressure chronic ulcer of left heel and midfoot limited to breakdown of skin (4) Congestive heart failure Current Visit: Yes Status: Chronic Assessment and plan: Not an exacerbation. Last echo shows EF of 60% with indeterminant diastolic dysfunction. Patient is on Lasix at home. Currently Lasix is being held due to patient's blood pressure with systolics 90s to 100s. Qualifiers: Congestive heart failure type: diastolic Congestive heart failure chronicity: chronic Qualified Code(s): I50.32 - Chronic diastolic (congestive ) heart failure (5) Essential hypertension Current Visit: Yes Status: Chronic (6) Hyperlipidemia Current Visit: Yes Status: Chronic Assessment and plan: Controlled continue patient's statin. Qualifiers: Hyperlipidemia type: unspecified Qualified Code(s): E78.5 - Hyperlipidemia , unspecified (7) Hypothyroidism Current Visit: Yes Status: Chronic Assessment and plan: Controlled continue home medication. Qualifiers: Hypothyroidism type: unspecified Qualified Code(s): E03.9 - Hypothyroidism , unspecified (8) DVT prophylaxis Current Visit: Yes Status: Acute Assessment and plan: Heparin subcutaneous. (9) Diabetes Current Visit: Yes Status: Chronic Assessment and plan: Patient's hemoglobin A1c has been below 6.5. Prediabetic. Continue low-dose sliding scale, diabetic diet., Cardiac and fluid addition to diet. Qualifiers: Diabetes mellitus type: type 2 Diabetes mellitus complication status: with skin complications Diabetes mellitus complication detail: with other skin ulcer Diabetes mellitus termite control service representative insulin use: without termite control service representative use Qualified Code(s): E11.622 - Type 2 diabetes mellitus with other skin ulcer - Subjective Interval history: Patient lying comfortably in bed. He denies any extremity pain. Reports lower extremity swelling. States before admission he had a follow-up odor from his left heel wound and left buttock wound. This has resolved. He denies chest pain, shortness of breath, abdominal pain. Reports continued cough, clear productive sputum, nasal congestion. - Constitutional Vitals: Temp Pulse Resp BP Pulse Ox 97.6 F 83 18 109/70 94 12/12/17 07:39 12/12/17 07:39 12/12/17 07:39 12/12/17 07:39 12/12/17 07:39 General appearance: Present: A&O X 3, no acute distress - Other Additional findings: General: Obese male, without distress, unkept Heart: Regular rate and rhythm with no murmur Lungs: Clear to auscultation bilaterally Abdomen: Soft nontender, nondistended positive bowel sounds Extremities: Bilateral pedal edema 2+. Left heel ulcer dressed, stage II, and left thigh ulcer, dressed H2. Neuro: Alert oriented 3 Vascular: Pedal and radial pulses 2 out of 4 Internal Medicine: Result - Labs CBC & Chem 7: 12/12/17 05:24 12/12/17 05:24 Labs: Short CBC 12/12/17 Range/Units 05:24 WBC 9.0 (4.3-11.1) K/mcL Hgb 10.3 L D (12.9-16.9) g/dL Hct 33.4 L (37.5-50.1) % Plt Count 326 (140-400) K/mcL Neutrophils # 6.1 (1.6-8.9) K/mcL [facility] 12/12/17 12/12/17 05:24 05:24 Sodium 137 Potassium 3.5 Chloride 104 Carbon Dioxide 24 BUN 13 Creatinine 0.85 0.86 Glucose 153 H Calcium 8.9 Consult Discharge Plan - Plan Referrals: Jaun Price MD [Primary Care Provider] - (ECF?) <Kieran Navarrete - Last Filed: 12/12/17 16:19> Date of Encounter: 12/12/17 - Constitutional Vitals: Temp Pulse Resp BP Pulse Ox 97.2 F L 75 23 106/63 95 12/12/17 15:23 12/12/17 15:23 12/12/17 15:23 12/12/17 15:23 12/12/17 15:23 Internal Medicine: Result - Labs CBC & Chem 7: 12/12/17 05:24 12/12/17 05:24 Labs: Short CBC 12/12/17 Range/Units 05:24 WBC 9.0 (4.3-11.1) K/mcL Hgb 10.3 L D (12.9-16.9) g/dL Hct 33.4 L (37.5-50.1) % Plt Count 326 (140-400) K/mcL Neutrophils # 6.1 (1.6-8.9) K/mcL [facility] 12/12/17 12/12/17 05:24 05:24 Sodium 137 Potassium 3.5 Chloride 104 Carbon Dioxide 24 BUN 13 Creatinine 0.85 0.86 Glucose 153 H Calcium 8.9 - Attending Attestation I examined this patient and my medical decision-making was reviewed with the Resident Physician on 12/12/17. I agree with the documented findings, disposition and treatment plan as described except to the extent set forth below. Seen and examined at the bedside. 47-year-old male with history of spina bifida with paraparesis, mostly bedbound, with recurrent admissions for multiple resistant organism urinary tract infection and cellulitis. He also has stage II pressure ulcers of his left buttock and left heel. He is readmitted this time for sepsis secondary to cellulitis of the left lower extremity. Patient is known to the infectious disease team, and is following up as outpatient with them. Patient was evaluated this morning and reports that he thinks the discharge on his left heel has improved, he also thinks it is less malodorous. He has no new complaints. Workup in the ER is unremarkable, urine analysis shows contaminated urine cultures are pending. CAT scan of both lower extremities resulting abscess collections shows that his paternal swelling. Physical examination is remarkable for a morbidly obese young man in no form of distress, disheveled and unkempt, left lower extremity in clean wound dressing. 2+ bilateral lower extremity edema .Chest is clear to auscultation bilaterally. Heart sounds S1-S2 only. Abdomen is soft and nontender right urostomy bag. Rectal urine. Plan is to continue current antibiotics as recommended by infectious diseases. Await final culture reports. Wound care nurse to see. Resume home dose of Lasix. Rest of details of the resident physicians documentation.
[2017-12-12] MEDS ORDERED: D5% in Water 1,000 ML IVC PRN (10:17)
[2017-12-12] MEDS ORDERED: Dextrose Gel 15 GM/37.5 ML TUBE PO PRN ×2 (10:17)
[2017-12-12] MEDS ORDERED: *HR* Dextrose 50 % in Water (Syg) 50 ML SYRINGE IVP PRN (10:17)
--- NOTE | 2017-12-12 11:22 | Infectious Disease Progress No ---
Date of Encounter: 12/12/17 Time of Encounter: 11:20 - Assessment and Plan (1) Sepsis Current Visit: No Status: Resolved The patient had two SIRS criteria on admission. Etiology not clear: URI vs. cellulitisvs. other. Improved. Tachycardia resolved. WBC normalized. Blood cultures pending x 2 sets. Qualifiers: Sepsis type: sepsis due to unspecified organism Qualified Code(s): A41.9 - Sepsis, unspecified organism (2) URI (upper respiratory infection) Current Visit: No Status: Acute Could be contributing to the patient's leukocytosis. Likely viral. Check RIP. Ordered yesterday, but not collected. Discussed with nursing staff. Continue supportive care. Qualifiers: URI type: unspecified viral URI Qualified Code(s): J06.9 - Acute upper respiratory infection, unspecified; B97.89 - Other viral agents as the cause of diseases classified elsewhere; B97.89 - Other viral agents as the cause of diseases classified elsewhere (3) Ulcer of left heel Current Visit: Yes Status: Acute Stage II. Likely secondary to sedentary lifestyle. Clinically, does not appear infected, but the patient reports that the ulcers came back after being healed and there was a foul smell and drainage and his ESR >130. CT of the LLE was negative for OM or abscess. Check CRP.--> pending. If no other reason for elevated ESR and WBC can be found, may need to consider bone scan to evaluate for underlying OM. The patient does have hardware that has been in since he was a baby. Recommend wound care to evaluate and make recommendations. I anticipate that the patient also has underlying venous insufficiency that leads to the swelling of the BLE and his non-healing ulcers. The patient also has a history of poor personal hygiene that likely plays a part as well. Continue Ertapenem 1 gram IV daily for now. Duration of treatment depends on the clinical picture. Monitor renal function and dose-adjust antibiotics. Qualifiers: Non-pressure ulcer stage: limited to breakdown of skin Qualified Code(s): L97.421 - Non-pressure chronic ulcer of left heel and midfoot limited to breakdown of skin (4) Ulcer of left thigh Current Visit: Yes Status: Acute Location: Left posterior thigh. Likely secondary to sedentary lifestyle and altered ability to ambulate. Clinically, does not appear infected, but the patient reports that the ulcers came back after being healed and there was a foul smell and drainage and his ESR >130. CT of the LLE was negative for OM or abscess. Check CRP.--> pending. If no other reason for elevated ESR and WBC can be found, may need to consider bone scan to evaluate for underlying OM. The patient does have hardware that has been in since he was a baby. Recommend wound care to evaluate and make recommendations. I anticipate that the patient also has underlying venous insufficiency that leads to the swelling of the BLE and his non-healing ulcers. The patient also has a history of poor personal hygiene that likely plays a part as well. Continue Ertapenem 1 gram IV daily for now. Duration of treatment depends on the clinical picture. Monitor renal function and dose-adjust antibiotics. Qualifiers: Non-pressure ulcer stage: limited to breakdown of skin Qualified Code(s): L97.121 - Non-pressure chronic ulcer of left thigh limited to breakdown of skin (5) Bilateral lower extremity edema Current Visit: No Status: Acute Likely multifactorial: venous insufficiency + dependent edema + history of CHF. Consider compression hose/dressings to assist with swelling. Management per the primary team. (6) Cough Current Visit: Yes Status: Acute Chest XR negative. Check RIP. (7) History of urostomy Current Visit: Yes Status: Acute (8) Morbid obesity with BMI of 40.0-44.9, adult Current Visit: No Status: Chronic (9) Type 2 diabetes mellitus Current Visit: No Status: Chronic Recommend aggressive glucose monitoring and control to promote wound healing and prevent re-infection. Management per the primary team. 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 Left knee XR negative for osseous changes. Consider outpatient ortho evaluation. CT LE negative for septic arthritis. Pain management per the primary team. Qualifiers: Chronicity: acute Qualified Code(s): M25.562 - Pain in left knee - Subjective Interval history: Patient seen and examined. No acute events noted overnight. Patient resting quietly in bed. States overall he feels better and thinks his wounds are improving. States he slept well last night. Denies fevers, chills, or rigors. Denies chest pain, shortness of breath. States he still has a cough, but it is no longer productive. Denies nausea, vomiting, or diarrhea. Denies abdominal pain, urinary complaints, or appetite changes. Denies pain at this time. Infect Dis PN-Objective Data - Labs CBC & Chem 7: 12/12/17 05:24 12/12/17 05:24 Labs: Laboratory Results - last 24 hr 12/12/17 12/12/17 12/12/17 05:24 05:24 05:24 WBC 9.0 RBC 4.07 L Hgb 10.3 L D Hct 33.4 L MCV 82.1 L MCH 25.3 L MCHC 30.8 L RDW 16.4 H Plt Count 326 MPV 10.7 Immature Gran % 0.3 Seg Neutrophils % 67.7 Lymphocytes % 16.8 Monocytes % 7.4 Eosinophils % 7.0 Basophils % 0.8 Neutrophils # 6.1 Lymphocytes # 1.5 Monocytes # 0.7 Eosinophils # 0.6 Basophils # 0.1 Sodium 137 Potassium 3.5 Chloride 104 Carbon Dioxide 24 BUN 13 Creatinine 0.85 0.86 Est GFR ( Amer) > 60 > 60 Est GFR (Non-Af Amer) > 60 > 60 BUN/Creatinine Ratio 15 Glucose 153 H Calculated Osmolality 287 Calcium 8.9 Magnesium 1.6 B-Natriuretic Peptide 12/12/17 05:24 WBC RBC Hgb Hct MCV MCH MCHC RDW Plt Count MPV Immature Gran % Seg Neutrophils % Lymphocytes % Monocytes % Eosinophils % Basophils % Neutrophils # Lymphocytes # Monocytes # Eosinophils # Basophils # Sodium Potassium Chloride Carbon Dioxide BUN Creatinine Est GFR ( Amer) Est GFR (Non-Af Amer) BUN/Creatinine Ratio Glucose Calculated Osmolality Calcium Magnesium B-Natriuretic Peptide 14 Exam - Constitutional Vitals: Temp Pulse Resp BP Pulse Ox 97.5 F L 82 18 113/76 95 12/12/17 10:58 12/12/17 10:58 12/12/17 10:58 12/12/17 10:58 12/12/17 10:58 General appearance: cooperative, morbidly obese, no acute distress - Head Head exam: Present: atraumatic, normal inspection, normocephalic - Eye Eye exam: Present: EOMI, normal appearance, PERRL Pupils: Present: normal accommodation - ENT ENT exam: Present: mucous membranes moist Additional comments: Very poor dentition noted. - Neck Neck exam: Present: normal inspection - Respiratory Respiratory exam: Present: CTAB. Absent: rales, respiratory distress, rhonchi, wheezes - Cardiovascular Cardiovascular exam: Present: RRR, +S1, +S2 - GI/Abdominal GI/Abdominal exam: Present: distended (obese), normal bowel sounds, soft. Absent: tenderness Additional comments: Urostomy noted to the RLQ with collection device intact and clear yellow urine noted. Stoma is beefy red. - Extremities Exam Extremities exam: Present: pedal edema (1+ BLE). Absent: joint swelling, tenderness Additional comments: Left heel dressing C/D/I. Left posterior thigh dressing C/D/I. - Neurological Exam Neurological exam: Present: alert, oriented X3, no focal deficits - Psychiatric Psychiatric exam: Present: normal affect, normal mood - Skin Skin exam: Present: dry, intact, normal color, warm Consult Discharge Plan - Plan Referrals: Jaun Price MD [Primary Care Provider] - (ECF?) - Attending Attestation I examined this patient and my medical decision-making was reviewed with the Resident Physician. I agree with the documented findings, disposition and treatment plan as described except to the extent set forth below.
[2017-12-12] MEDS: Insulin LISPRO 300 UNITS/3 ML VIAL SQ SCH ×3 (11:38→20:46)
[2017-12-12] MEDS ORDERED: Ipratropium/Albuterol Neb 3 ML IH PRN (11:53)
[2017-12-12 16:25] LABS: Adenovirus Not Detected (Not Detect); Bordetella Pertussis Not Detected (Not Detect); Chlamydophila pneumoniae Not Detected (Not Detect); Coronavirus 229E Not Detected (Not Detect); Coronavirus HKU1 Not Detected (Not Detect); Coronavirus NL63 Not Detected (Not Detect); Coronavirus OC43 Not Detected (Not Detect); Human Metapneumovirus Not Detected (Not Detect); Human Rhinovirus/Enterovirus Not Detected (Not Detect); Influenza A Subtype 2009 H1 Not Detected (Not Detect); Influenza A Untypeable Not Detected (Not Detect); Influenza B Not Detected (Not Detect); Mycoplasma pneumoniae Not Detected (Not Detect); Parainfluenza Virus 1 Not Detected (Not Detect); Parainfluenza Virus 2 Not Detected (Not Detect); Parainfluenza Virus 3 Not Detected (Not Detect); Parainfluenza Virus 4 Not Detected (Not Detect); Respiratory Syncytial Virus Not Detected (Not Detect)
[2017-12-13 04:20] LABS: Basophils # 0.1 K/mcL (0.0-0.2); Basophils % 0.9 %; Eosinophils # 0.6 K/mcL (0.0-0.6); Eosinophils % 6.5 %; Hemoglobin 10.6 g/dL (12.9-16.9); Immature Granulocytes % 0.3 % (0-4); Immature Platelets 3.1 % (1.1-6.1); Lymphocytes # 1.5 K/mcL (0.6-4.6); Lymphocytes % 17.2 %; Mean Corpuscular HGB Conc 31.2 g/dL (31.6-35.5); Mean Corpuscular Hemoglobin 25.6 pg (28.0-33.3); Mean Corpuscular Volume 82.1 fL (83.0-100.0); Mean Platelet Volume 10.3 fL (9.4-12.4); Monocytes # 0.6 K/mcL (0.0-1.3); Monocytes % 6.3 %; Neutrophils # 6.1 K/mcL (1.6-8.9); Platelet Count 352 K/mcL (140-400); Red Blood Count 4.14 M/mcL (4.19-5.50); Red Cell Distribution Width 16.3 % (11.5-14.5); Segmented Neutrophils % 68.8 %
[2017-12-13 04:53] LABS: BUN/Creatinine Ratio 16 (6-26); Blood Urea Nitrogen 14 mg/dL (6-20); Calcium 8.9 mg/dL (8.6-10.3); Carbon Dioxide 25 mEq/L (23-29); Chloride 104 mEq/L (98-107); Glucose 160 mg/dL (70-105); Osmolality,Calculated 286 (280-300); Potassium 3.7 mEq/L (3.5-5.1); Sodium 136 mEq/L (136-145); eGFR For African Americans > 60 (> 60); eGFR For Non-African Americans > 60 (> 60)
[2017-12-13] MEDS: *HR* Heparin 5,000 UNIT/ML VIAL SQ SCH ×2 (05:23→16:59)
[2017-12-13] MEDS: Insulin LISPRO 300 UNITS/3 ML VIAL SQ SCH ×4 (08:09→20:48)
[2017-12-13] MEDS: Lactobacillus 1 EACH CAP.SPRINK PO SCH (08:10)
--- NOTE | 2017-12-13 09:54 | Infectious Disease Progress No ---
Date of Encounter: 12/13/17 Time of Encounter: 09:52 - Assessment and Plan (1) Sepsis Current Visit: Yes Status: Resolved The patient had two SIRS criteria on admission. Etiology not clear: URI vs. cellulitisvs. other. Improved. Tachycardia resolved. WBC normalized. Blood cultures pending x 2 sets. Qualifiers: Sepsis type: sepsis due to unspecified organism Qualified Code(s): A41.9 - Sepsis, unspecified organism (2) URI (upper respiratory infection) Current Visit: No Status: Acute Could be contributing to the patient's leukocytosis. Likely viral, but RIP negative. Continue supportive care. Qualifiers: URI type: unspecified viral URI Qualified Code(s): J06.9 - Acute upper respiratory infection, unspecified; B97.89 - Other viral agents as the cause of diseases classified elsewhere; B97.89 - Other viral agents as the cause of diseases classified elsewhere (3) Ulcer of left thigh Current Visit: Yes Status: Acute Location: Left posterior thigh. Wound culture grew MDRO Proteus and MRSA. Given that the patient has improved on Ertapenem, I am not sure that the Proteus is actually the cause of the patient's symptoms vs. colonizer. Likely secondary to sedentary lifestyle and altered ability to ambulate. Clinically, does not appear infected, but the patient reports that the ulcers came back after being healed and there was a foul smell and drainage and his ESR >130. CT of the LLE was negative for OM or abscess. CRP mildly elevated at 26, but not impressive. Recommend aggressive wound care. I anticipate that the patient also has underlying venous insufficiency that leads to the swelling of the BLE and his non-healing ulcers. The patient also has a history of poor personal hygiene that likely plays a part as well. Discontinue Ertapenem. Start Bactrim DS 1 tab PO BID x 5 days. Duration of treatment depends on the clinical picture. Monitor renal function and dose-adjust antibiotics. Qualifiers: Non-pressure ulcer stage: limited to breakdown of skin Qualified Code(s): L97.121 - Non-pressure chronic ulcer of left thigh limited to breakdown of skin (4) Ulcer of left heel Current Visit: Yes Status: Acute Stage II. Likely secondary to sedentary lifestyle. Clinically, does not appear infected, but the patient reports that the ulcers came back after being healed and there was a foul smell and drainage and his ESR >130. CT of the LLE was negative for OM or abscess. CRP mildly elevated at 26, but not impressive. Recommend aggressive wound care. I anticipate that the patient also has underlying venous insufficiency that leads to the swelling of the BLE and his non-healing ulcers. The patient also has a history of poor personal hygiene that likely plays a part as well. Ertapenem discontinued by the primary team. Additional antibiotic recommendations as above. Qualifiers: Non-pressure ulcer stage: limited to breakdown of skin Qualified Code(s): L97.421 - Non-pressure chronic ulcer of left heel and midfoot limited to breakdown of skin (5) Bilateral lower extremity edema Current Visit: No Status: Acute Likely multifactorial: venous insufficiency + dependent edema + history of CHF. Consider compression hose/dressings to assist with swelling. Management per the primary team. (6) Cough Current Visit: Yes Status: Acute Chest XR negative. RIP negative as well. Could be secondary to CHF. (7) History of urostomy Current Visit: Yes Status: Acute (8) Morbid obesity with BMI of 40.0-44.9, adult Current Visit: No Status: Chronic (9) Type 2 diabetes mellitus Current Visit: No Status: Chronic Recommend aggressive glucose monitoring and control to promote wound healing and prevent re-infection. Management per the primary team. 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 Left knee XR negative for osseous changes. Consider outpatient ortho evaluation. CT LE negative for septic arthritis. Pain management per the primary team. Qualifiers: Chronicity: acute Qualified Code(s): M25.562 - Pain in left knee - Subjective Interval history: Patient seen and examined. No acute events noted overnight. Patient resting quietly in bed with family at bedside. States overall he feels better and thinks his wounds are improving. States he slept well last night. Denies fevers , chills, or rigors. Denies chest pain, shortness of breath. States he still has a cough, but it is no longer productive. Denies nausea, vomiting, or diarrhea. Denies abdominal pain, urinary complaints, or appetite changes. Denies pain at this time. Infect Dis PN-Objective Data - Labs CBC & Chem 7: 12/13/17 04:00 12/13/17 04:00 Labs: Laboratory Results - last 24 hr 12/12/17 12/12/17 12/12/17 11:25 12:31 12:31 WBC RBC Hgb Hct MCV MCH MCHC RDW Plt Count MPV Immature Gran % Seg Neutrophils % Lymphocytes % Monocytes % Eosinophils % Basophils % Neutrophils # Lymphocytes # Monocytes # Eosinophils # Basophils # Immature Plt Fraction Sodium Potassium Chloride Carbon Dioxide BUN Creatinine Est GFR ( Amer) Est GFR (Non-Af Amer) BUN/Creatinine Ratio Glucose POC Glucose 107 H Calculated Osmolality Lactic Acid 1.0 Calcium C-Reactive Protein 26 H Chlamy pneumoniae PCR Adenovirus (PCR) B. pertussis DNA (PCR) Coronavirus OC43 (PCR) Coronavirus HKU1 (PCR) Coronavirus 229E (PCR) Coronavirus NL63 (PCR) Human Metapneumovir PCR Influenza A (H1) PCR Influ A (H1N1/09) PCR Influenza A (H3) PCR Influenza A Untype (PCR) Influenza Type B (PCR) M.pneumoniae DNA (PCR) Parainfluenza 1 (PCR) Parainfluenza 2 (PCR) Parainfluenza 3 (PCR) Parainfluenza 4 (PCR) RSV (PCR) Entero/Rhino (PCR) 12/12/17 12/12/17 12/12/17 14:50 15:29 20:44 WBC RBC Hgb Hct MCV MCH MCHC RDW Plt Count MPV Immature Gran % Seg Neutrophils % Lymphocytes % Monocytes % Eosinophils % Basophils % Neutrophils # Lymphocytes # Monocytes # Eosinophils # Basophils # Immature Plt Fraction Sodium Potassium Chloride Carbon Dioxide BUN Creatinine Est GFR ( Amer) Est GFR (Non-Af Amer) BUN/Creatinine Ratio Glucose POC Glucose 134 H 142 H Calculated Osmolality Lactic Acid Calcium C-Reactive Protein Chlamy pneumoniae PCR Not Detected Adenovirus (PCR) Not Detected B. pertussis DNA (PCR) Not Detected Coronavirus OC43 (PCR) Not Detected Coronavirus HKU1 (PCR) Not Detected Coronavirus 229E (PCR) Not Detected Coronavirus NL63 (PCR) Not Detected Human Metapneumovir PCR Not Detected Influenza A (H1) PCR Not Detected Influ A (H1N1/09) PCR Not Detected Influenza A (H3) PCR Not Detected Influenza A Untype (PCR) Not Detected Influenza Type B (PCR) Not Detected M.pneumoniae DNA (PCR) Not Detected Parainfluenza 1 (PCR) Not Detected Parainfluenza 2 (PCR) Not Detected Parainfluenza 3 (PCR) Not Detected Parainfluenza 4 (PCR) Not Detected RSV (PCR) Not Detected Entero/Rhino (PCR) Not Detected 12/13/17 12/13/17 12/13/17 04:00 04:00 07:50 WBC 8.8 RBC 4.14 L Hgb 10.6 L Hct 34.0 L MCV 82.1 L MCH 25.6 L MCHC 31.2 L RDW 16.3 H Plt Count 352 MPV 10.3 Immature Gran % 0.3 Seg Neutrophils % 68.8 Lymphocytes % 17.2 Monocytes % 6.3 Eosinophils % 6.5 Basophils % 0.9 Neutrophils # 6.1 Lymphocytes # 1.5 Monocytes # 0.6 Eosinophils # 0.6 Basophils # 0.1 Immature Plt Fraction 3.1 Sodium 136 Potassium 3.7 Chloride 104 Carbon Dioxide 25 BUN 14 Creatinine 0.90 Est GFR ( Amer) > 60 Est GFR (Non-Af Amer) > 60 BUN/Creatinine Ratio 16 Glucose 160 H POC Glucose 126 H Calculated Osmolality 286 Lactic Acid Calcium 8.9 C-Reactive Protein Chlamy pneumoniae PCR Adenovirus (PCR) B. pertussis DNA (PCR) Coronavirus OC43 (PCR) Coronavirus HKU1 (PCR) Coronavirus 229E (PCR) Coronavirus NL63 (PCR) Human Metapneumovir PCR Influenza A (H1) PCR Influ A (H1N1/09) PCR Influenza A (H3) PCR Influenza A Untype (PCR) Influenza Type B (PCR) M.pneumoniae DNA (PCR) Parainfluenza 1 (PCR) Parainfluenza 2 (PCR) Parainfluenza 3 (PCR) Parainfluenza 4 (PCR) RSV (PCR) Entero/Rhino (PCR) Cultures: Serology 12/12/17 Range/Units 14:50 Chlamy pneumoniae PCR Not Detected (Not Detect) Adenovirus (PCR) Not Detected (Not Detect) B. pertussis DNA (PCR) Not Detected (Not Detect) Coronavirus OC43 (PCR) Not Detected (Not Detect) Coronavirus HKU1 (PCR) Not Detected (Not Detect) Coronavirus 229E (PCR) Not Detected (Not Detect) Coronavirus NL63 (PCR) Not Detected (Not Detect) Human Metapneumovir PCR Not Detected (Not Detect) Influenza A (H1) PCR Not Detected (Not Detect) Influ A (H1N1/09) PCR Not Detected (Not Detect) Influenza A (H3) PCR Not Detected (Not Detect) Influenza A Untype (PCR) Not Detected (Not Detect) Influenza Type B (PCR) Not Detected (Not Detect) M.pneumoniae DNA (PCR) Not Detected (Not Detect) Parainfluenza 1 (PCR) Not Detected (Not Detect) Parainfluenza 2 (PCR) Not Detected (Not Detect) Parainfluenza 3 (PCR) Not Detected (Not Detect) Parainfluenza 4 (PCR) Not Detected (Not Detect) RSV (PCR) Not Detected (Not Detect) Entero/Rhino (PCR) Not Detected (Not Detect) Cultures 12/10/17 00:13 Wound Culture - Preliminary Left Hip Proteus mirabilis Staphylococcus aureus Exam - Constitutional Vitals: Temp Pulse Resp BP Pulse Ox 98.6 F 84 17 129/83 93 12/13/17 07:44 12/13/17 07:44 12/13/17 07:44 12/13/17 07:44 12/13/17 04:46 General appearance: cooperative, morbidly obese, no acute distress - Head Head exam: Present: atraumatic, normal inspection, normocephalic - Eye Eye exam: Present: EOMI, normal appearance, PERRL Pupils: Present: normal accommodation - ENT ENT exam: Present: mucous membranes moist Additional comments: Very poor dentition. - Neck Neck exam: Present: normal inspection - Respiratory Respiratory exam: Present: CTAB. Absent: rales, respiratory distress, rhonchi, wheezes - Cardiovascular Cardiovascular exam: Present: RRR, +S1, +S2 - GI/Abdominal GI/Abdominal exam: Present: distended (obese), normal bowel sounds, soft. Absent: tenderness Additional comments: Urostomy noted to the RLQ with collection device intact. Clear yellow urine noted. - Extremities Exam Extremities exam: Present: pedal edema (2+ BLE). Absent: joint swelling, tenderness Additional comments: Left heel dressing C/D/I. Left posterior thigh wound noted, stage II, with 100% granulation tissue in the wound bed. No purulence, warmth, or erythema noted. - Neurological Exam Neurological exam: Present: alert, oriented X3. Absent: facial droop, speech deficit - Psychiatric Psychiatric exam: Present: normal affect, normal mood - Skin Skin exam: Present: dry, intact, normal color, warm Consult Discharge Plan - Plan Referrals: Jaun Price MD [Primary Care Provider] - (ECF?) - Attending Attestation I examined this patient and my medical decision-making was reviewed with the Resident Physician. I agree with the documented findings, disposition and treatment plan as described except to the extent set forth below.
[2017-12-13] MEDS: Gentamicin Oint 15 GM TUBE TP SCH (10:32)
--- NOTE | 2017-12-13 10:57 | Internal Med Progress Note ---
<Kieran Navarrete T - Last Filed: 12/13/17 14:18> Date of Encounter: 12/13/17 - Constitutional Vitals: Temp Pulse Resp BP Pulse Ox 99.2 F 89 18 110/78 93 12/13/17 11:16 12/13/17 11:16 12/13/17 11:16 12/13/17 11:16 12/13/17 10:00 Internal Medicine: Result - Labs CBC & Chem 7: 12/13/17 04:00 12/13/17 04:00 Labs: Short CBC 12/13/17 Range/Units 04:00 WBC 8.8 (4.3-11.1) K/mcL Hgb 10.6 L (12.9-16.9) g/dL Hct 34.0 L (37.5-50.1) % Plt Count 352 (140-400) K/mcL Neutrophils # 6.1 (1.6-8.9) K/mcL BMP 12/13/17 04:00 Sodium 136 Potassium 3.7 Chloride 104 Carbon Dioxide 25 BUN 14 Creatinine 0.90 Glucose 160 H Calcium 8.9 Consult Discharge Plan - Plan Referrals: Jaun Price MD [Primary Care Provider] - (ECF?) - Attending Attestation I examined this patient and my medical decision-making was reviewed with the Resident Physician on 12/13/17. I agree with the documented findings, disposition and treatment plan as described except to the extent set forth below. Seen and examined at the bedside. 47-year-old male with history of spina bifida with paraparesis, mostly bedbound , with recurrent admissions for multiple resistant organism urinary tract infection and cellulitis. He also has stage II pressure ulcers of his left buttock and left heel. He is readmitted this time for presumed sepsis secondary to cellulitis of the left lower extremity, as well as viral URI No new complains s/p PTOT sitting out of bed in a chair, leg swelling seems to have improved, he is AAOX3, wound inspected, no evidence of cellulitis on heel wound, no discharge , chest is CTAB-Patient believes his Physical examination is remarkable for a morbidly obese young man in no form of distress, disheveled and unkempt, left lower extremity in clean wound dressing. Left thigh wound not inspected. Left heel wound is clean, no surrounding evidence of cellulitis .Chest is clear to auscultation bilaterally. Heart sounds S1-S2 only. Abdomen is soft and nontender right urostomy bag draining clear urine. Labs and Imaging reviewed: Wound culture with MDRO proteus and Staph, presumed to MRSA Plan Discontinue etapernem , proteus is sensitive only to tobramycin, per ID, this is likely a colonizer, will await final recommendations Start po bactrim for Staph infection PTOT eval Anticipate d/c a.m, depending on clinical recovery Rest of details of the resident physicians documentation. <Christopher Singletary - Last Filed: 12/13/17 15:50> Date of Encounter: 12/13/17 Time of Encounter: 09:15 - Assessment and plan (1) Sepsis Current Visit: Yes Status: Resolved Assessment and plan: Initially patient presented with leukocytosis, tachycardia. Etiology is upper respiratory infection, cellulitis ESR is greater than 130 and concern for osteomyelitis. CT was negative for post fossa myelitis. Tachycardia and possible has normalized Ertapenem has been stopped Infectious disease thinks Proteus might be due to contamination We will stop ertapenem and vancomycin Continue Bactrim Qualifiers: Sepsis type: sepsis due to unspecified organism Qualified Code(s): A41.9 - Sepsis, unspecified organism (2) Decubitus ulcer of left buttock Current Visit: Yes Status: Chronic Assessment and plan: Stage II Dressed CT of lower extremity negative for osteomyelitis X-ray of pelvis and femur negative for fracture Wound care following Cultures pending Stop ertapenem Appreciate infectious disease consult Qualifiers: Pressure ulcer stage: stage 2 Qualified Code(s): L89.322 - Pressure ulcer of left buttock, stage 2 (3) Ulcer of left heel Current Visit: Yes Status: Acute Assessment and plan: Stage II Dressed CT of lower extremity negative for osteomyelitis. X-ray of pelvis and femur negative for fracture Wound care following. Cultures pending. Stop ertapenem. Appreciate infectious disease consult. Qualifiers: Non-pressure ulcer stage: limited to breakdown of skin Qualified Code(s): L97.421 - Non-pressure chronic ulcer of left heel and midfoot limited to breakdown of skin (4) Congestive heart failure Current Visit: Yes Status: Chronic Assessment and plan: Not an exacerbation. Last echo shows EF of 60% with indeterminant diastolic dysfunction. Patient is on Lasix at home. Currently Lasix is being held due to patient's blood pressure and plan to start Bactrim which is potentially nephrotoxic agent Qualifiers: Congestive heart failure type: diastolic Congestive heart failure chronicity: chronic Qualified Code(s): I50.32 - Chronic diastolic (congestive ) heart failure (5) Essential hypertension Current Visit: Yes Status: Chronic (6) Hyperlipidemia Current Visit: Yes Status: Chronic Assessment and plan: Controlled continue patient's statin. Qualifiers: Hyperlipidemia type: unspecified Qualified Code(s): E78.5 - Hyperlipidemia , unspecified (7) Hypothyroidism Current Visit: Yes Status: Chronic Assessment and plan: Controlled continue home medication Qualifiers: Hypothyroidism type: unspecified Qualified Code(s): E03.9 - Hypothyroidism , unspecified (8) Diabetes Current Visit: Yes Status: Chronic Assessment and plan: Patient's hemoglobin A1c has been below 6.5. Prediabetic. Continue low-dose sliding scale, diabetic diet., Cardiac and fluid addition to diet. Qualifiers: Diabetes mellitus type: type 2 Diabetes mellitus complication status: with skin complications Diabetes mellitus complication detail: with other skin ulcer Diabetes mellitus intermediate card tender insulin use: without senior living use Qualified Code(s): E11.622 - Type 2 diabetes mellitus with other skin ulcer (9) DVT prophylaxis Current Visit: Yes Status: Acute Assessment and plan: Heparin subcutaneous. - Subjective Interval history: Atrial reports a wall today with no additional concerns/complaints. He denies having fever, pain in his leg, shortness of breath, nausea, or vomiting. - Constitutional Vitals: Temp Pulse Resp BP Pulse Ox 98.6 F 84 17 129/83 93 12/13/17 07:44 12/13/17 07:44 12/13/17 07:44 12/13/17 07:44 12/13/17 04:46 General appearance: Present: A&O X 3, no acute distress Exam: General: Cooperative, pleasant, no acute distress, alert and oriented 3, answers questions appropriately HEENT: Normocephalic, atraumatic,Conjunctiva pink, sclera anicteric, oral mucosa moist Respiratory: No accessory muscle usage, mild basilar rales on auscultation Cardiovascular: Regular rate and rhythm, S1 and S2 present, no murmurs/rubs/ gallops/clicks appreciated GI/abdominal: Nondistended, nontender, soft, normal bowel sounds, no peritoneal signs Extremities: No calf tenderness, 2+ pedal edema appreciated, warm, lower extremity pulses palpable and symmetrical Neurological: Alert and oriented 3, no facial droop, no focal deficits Skin: Dry, intact, normal color Internal Medicine: Result - Labs CBC & Chem 7: 12/13/17 04:00 12/13/17 04:00 Labs: Short CBC 12/13/17 Range/Units 04:00 WBC 8.8 (4.3-11.1) K/mcL Hgb 10.6 L (12.9-16.9) g/dL Hct 34.0 L (37.5-50.1) % Plt Count 352 (140-400) K/mcL Neutrophils # 6.1 (1.6-8.9) K/mcL BMP 12/13/17 04:00 Sodium 136 Potassium 3.7 Chloride 104 Carbon Dioxide 25 BUN 14 Creatinine 0.90 Glucose 160 H Calcium 8.9
[2017-12-13] MEDS: Sulfamethoxazole/Trimeth DS 1 EACH TABLET PO SCH ×2 (11:47→22:07)
[2017-12-13] MEDS ORDERED: Beclomethasone 80mcg MDI IH SCH (22:00)
[2017-12-14] MEDS: Gentamicin Oint 15 GM TUBE TP SCH ×2 (00:02→09:11)
[2017-12-14] MEDS: *HR* Heparin 5,000 UNIT/ML VIAL SQ SCH ×2 (05:53→18:16)
--- NOTE | 2017-12-14 07:04 | Urology Progress Note ---
Date of Encounter: 12/13/17 Time of Encounter: 17:00 - Assessment and Plan (1) Complication of urostomy Current Visit: Yes Status: Acute Assessment and plan: wound care not immediately available. I suspect the appliances are causing skin breakdown. I elected to place a 18 romansh cath and inflated the balloon with 3 cc fluid to hold in place. hopefully the urine will drain without leakage and allow time for some skin healing and evaluation by wound ostomy team Progress Note Narrative: I was asked by the nurses to evaluate the urostomy site. Objective Initial Vital Signs Temp Pulse Resp BP Pulse Ox 97.7 F 120 18 130/75 99 12/10/17 21:24 12/10/17 21:24 12/10/17 21:24 12/10/17 21:24 12/10/17 21:24 - Additional Exam pink viable stoma 2-3 cm area of denuded skin medial to ileal conduit stoma - Labs 12/13/17 04:00 12/13/17 04:00 Consult Discharge Plan - Plan Referrals: Jaun Price MD [Primary Care Provider] - (ECF?)
[2017-12-14] MEDS: Insulin LISPRO 300 UNITS/3 ML VIAL SQ SCH ×4 (07:24→23:25)
[2017-12-14] MEDS ORDERED: NON-FORMULARY MEDICATION 1 EACH EACH (Multivitamin [One Daily Multivitamin] 1 TAB) PO SCH (09:00)
[2017-12-14] MEDS ORDERED: [UNRECOGNIZED DRUG - OTHER] PO SCH (09:00)
[2017-12-14] MEDS: Sulfamethoxazole/Trimeth DS 1 EACH TABLET PO SCH ×2 (09:10→19:54)
[2017-12-14] MEDS: Lactobacillus 1 EACH CAP.SPRINK PO SCH (09:11)
[2017-12-14] MEDS: Loratadine 10 MG TABLET PO SCH (09:11)
[2017-12-14] MEDS: Multivit/Ca/Min/Fe/FA 1 TAB TABLET PO SCH (09:11)
[2017-12-14] MEDS: Cholecalciferol (D-3) 1,000 UNIT TABLET PO SCH (09:11)
[2017-12-14 09:35] LABS: Basophils # 0.1 K/mcL (0.0-0.2); Basophils % 0.6 %; Eosinophils # 0.5 K/mcL (0.0-0.6); Eosinophils % 4.6 %; Hematocrit 34.5 % (37.5-50.1); Hemoglobin 10.5 g/dL (12.9-16.9); Immature Granulocytes % 0.3 % (0-4); Lymphocytes # 1.4 K/mcL (0.6-4.6); Lymphocytes % 14.2 %; Mean Corpuscular HGB Conc 30.4 g/dL (31.6-35.5); Mean Corpuscular Hemoglobin 24.9 pg (28.0-33.3); Mean Corpuscular Volume 81.9 fL (83.0-100.0); Mean Platelet Volume 10.6 fL (9.4-12.4); Monocytes # 0.5 K/mcL (0.0-1.3); Monocytes % 4.7 %; Neutrophils # 7.5 K/mcL (1.6-8.9); Platelet Count 372 K/mcL (140-400); Red Blood Count 4.21 M/mcL (4.19-5.50); Red Cell Distribution Width 16.2 % (11.5-14.5); Segmented Neutrophils % 75.6 %
--- NOTE | 2017-12-14 11:15 | Internal Med Progress Note ---
Date of Encounter: 12/14/17 Time of Encounter: 11:12 - Assessment and plan (1) Spina bifida Current Visit: Yes Status: Chronic Assessment and plan: Chronic Qualifiers: Spinal region: lumbosacral Presence of hydrocephalus: unspecified hydrocephalus presence Qualified Code(s): Q05.7 - Lumbar spina bifida without hydrocephalus (2) Essential hypertension Current Visit: Yes Status: Chronic Assessment and plan: Controlled, continue current meds (3) Hyperlipidemia Current Visit: Yes Status: Chronic Assessment and plan: Controlled continue patient's statin. Qualifiers: Hyperlipidemia type: unspecified Qualified Code(s): E78.5 - Hyperlipidemia , unspecified (4) Hypothyroidism Current Visit: Yes Status: Chronic Assessment and plan: Controlled continue home medication Qualifiers: Hypothyroidism type: unspecified Qualified Code(s): E03.9 - Hypothyroidism , unspecified (5) Cellulitis of left lower extremity Current Visit: Yes Status: Acute Assessment and plan: Continue bactrim (6) URI (upper respiratory infection) Current Visit: Yes Status: Acute Assessment and plan: viral, improved, continue supportive care Qualifiers: URI type: unspecified viral URI Qualified Code(s): J06.9 - Acute upper respiratory infection, unspecified; B97.89 - Other viral agents as the cause of diseases classified elsewhere; B97.89 - Other viral agents as the cause of diseases classified elsewhere (7) Pressure ulcer of left heel, stage 3 Current Visit: Yes Status: Chronic Assessment and plan: Continue wound care Cultures noted for MRSA, continue bactrim (8) Ulcer of left thigh Current Visit: Yes Status: Chronic Assessment and plan: As above Qualifiers: Non-pressure ulcer stage: limited to breakdown of skin Qualified Code(s): L97.121 - Non-pressure chronic ulcer of left thigh limited to breakdown of skin (9) Congestive heart failure Current Visit: Yes Status: Chronic Assessment and plan: Not an exacerbation. Last echo shows EF of 60% with indeterminant diastolic dysfunction. Patient is on Lasix at home. Resume lasix at 20mg daily, continue to monitor chem Qualifiers: Congestive heart failure type: diastolic Congestive heart failure chronicity: chronic Qualified Code(s): I50.32 - Chronic diastolic (congestive ) heart failure (10) Complication of urostomy Current Visit: Yes Status: Acute Assessment and plan: Urology eval noted sales assistants and salespersons pending Follow cultures - Subjective Interval history: Seen and examined 47-year-old male with history of spina bifida with paraparesis, mostly bedbound , with recurrent admissions for multiple resistant organism urinary tract infection and cellulitis. He also has stage II pressure ulcers of his left buttock and left heel. He is readmitted this time for presumed sepsis secondary to cellulitis of the left lower extremity, as well as viral URI No new complains, of note, the RN did note purulence from his urostomy site Urology was consulted and recommendations included airing out the wound for now and consult wound care We will also obtain cultures from this site, as his left lower extremity wound was clean and did not look infected He is however growing MRSA from the Left heel ulcer He is not septic - Constitutional Vitals: Temp Pulse Resp BP Pulse Ox 97.8 F 81 17 109/69 96 12/14/17 07:18 12/14/17 07:18 12/14/17 07:18 12/14/17 07:18 12/14/17 09:14 General appearance: Present: disheveled, A&O X 3, morbidly obese, no acute distress - Head Head exam: Present: atraumatic, normocephalic - Eye Eye exam: Present: PERRL, conjuntiva pink, sclera anicteric Pupils: Present: PERRL - Neck Neck exam general surgery: Present: supple, trachea midline. Absent: lymphadenopathy - Respiratory Respiratory exam: Present: CTAB. Absent: accessory muscle use, rales, rhonchi, wheezes - Cardiovascular Cardiovascular exam: Present: RRR, +S1, +S2 - GI/Abdominal GI/Abdominal exam: Present: normal bowel sounds, soft, no peritoneal signs. Absent: distended, tenderness Additional comments: Right quadrant with ostomy site, open to air, mild purulent discharge, draining clear urine - Extremities Exam Additional comments: extensive left thigh ulcer, looks well granulated, no surrounding erythema left heel and foot in clean wound dressing - Neurological Exam Neurological exam: Present: alert, CN II-XII intact, oriented X3, no focal deficits. Absent: pronater drift, facial droop, speech deficit - Skin Skin exam: Present: dry Internal Medicine: Result - Labs CBC & Chem 7: 12/14/17 09:05 12/13/17 04:00 Labs: Short CBC 12/14/17 Range/Units 09:05 WBC 9.9 (4.3-11.1) K/mcL Hgb 10.5 L (12.9-16.9) g/dL Hct 34.5 L (37.5-50.1) % Plt Count 372 (140-400) K/mcL Neutrophils # 7.5 (1.6-8.9) K/mcL Consult Discharge Plan - Plan Referrals: Jaun Price MD [Primary Care Provider] - (ECF?)
[2017-12-15] MEDS: *HR* Heparin 5,000 UNIT/ML VIAL SQ SCH ×2 (06:02→18:49)
[2017-12-15 06:37] LABS: Basophils # 0.1 K/mcL (0.0-0.2); Basophils % 0.6 %; Eosinophils # 0.5 K/mcL (0.0-0.6); Eosinophils % 4.3 %; Hematocrit 35.4 % (37.5-50.1); Immature Granulocytes % 0.6 % (0-4); Lymphocytes # 1.8 K/mcL (0.6-4.6); Lymphocytes % 16.2 %; Mean Corpuscular HGB Conc 31.1 g/dL (31.6-35.5); Mean Corpuscular Hemoglobin 25.3 pg (28.0-33.3); Mean Corpuscular Volume 81.4 fL (83.0-100.0); Mean Platelet Volume 11.4 fL (9.4-12.4); Monocytes # 0.6 K/mcL (0.0-1.3); Monocytes % 5.2 %; Platelet Count 306 K/mcL (140-400); Red Blood Count 4.35 M/mcL (4.19-5.50); Red Cell Distribution Width 16.5 % (11.5-14.5); Segmented Neutrophils % 73.1 %
[2017-12-15 07:24] LABS: BUN/Creatinine Ratio 16 (6-26); Blood Urea Nitrogen 16 mg/dL (6-20); Calcium 9.3 mg/dL (8.6-10.3); Carbon Dioxide 20 mEq/L (23-29); Chloride 106 mEq/L (98-107); Glucose 107 mg/dL (70-105); Osmolality,Calculated 286 (280-300); Potassium 4.4 mEq/L (3.5-5.1); Sodium 137 mEq/L (136-145); eGFR For African Americans > 60 (> 60); eGFR For Non-African Americans > 60 (> 60)
[2017-12-15] MEDS: Insulin LISPRO 300 UNITS/3 ML VIAL SQ SCH ×4 (07:47→21:21)
[2017-12-15] MEDS: Multivit/Ca/Min/Fe/FA 1 TAB TABLET PO SCH (09:38)
[2017-12-15] MEDS: Furosemide 20 MG TABLET PO SCH (09:38)
[2017-12-15] MEDS: Sulfamethoxazole/Trimeth DS 1 EACH TABLET PO SCH ×2 (09:38→20:17)
[2017-12-15] MEDS: Loratadine 10 MG TABLET PO SCH (09:38)
[2017-12-15] MEDS: Lactobacillus 1 EACH CAP.SPRINK PO SCH (09:38)
[2017-12-15] MEDS: Cholecalciferol (D-3) 1,000 UNIT TABLET PO SCH (09:38)
[2017-12-15] MEDS: Gentamicin Oint 15 GM TUBE TP SCH (09:39)
--- NOTE | 2017-12-15 10:37 | Internal Med Progress Note ---
Date of Encounter: 12/15/17 Time of Encounter: 10:37 - Assessment and plan (1) Spina bifida Current Visit: Yes Status: Chronic Assessment and plan: Chronic Qualifiers: Spinal region: lumbosacral Presence of hydrocephalus: unspecified hydrocephalus presence Qualified Code(s): Q05.7 - Lumbar spina bifida without hydrocephalus (2) Essential hypertension Current Visit: Yes Status: Chronic Assessment and plan: Controlled, continue current meds (3) Hyperlipidemia Current Visit: Yes Status: Chronic Assessment and plan: Controlled continue patient's statin. Qualifiers: Hyperlipidemia type: unspecified Qualified Code(s): E78.5 - Hyperlipidemia , unspecified (4) Hypothyroidism Current Visit: Yes Status: Chronic Assessment and plan: Controlled continue home medication Qualifiers: Hypothyroidism type: unspecified Qualified Code(s): E03.9 - Hypothyroidism , unspecified (5) Cellulitis of left lower extremity Current Visit: Yes Status: Acute Assessment and plan: Continue bactrim, micro shows MRSA, as well as contaminant with MDRO proteus , per ID, possibly contaminant (6) URI (upper respiratory infection) Current Visit: Yes Status: Resolved Assessment and plan: viral, resolved, continue supportive care Qualifiers: URI type: unspecified viral URI Qualified Code(s): J06.9 - Acute upper respiratory infection, unspecified; B97.89 - Other viral agents as the cause of diseases classified elsewhere; B97.89 - Other viral agents as the cause of diseases classified elsewhere (7) Pressure ulcer of left heel, stage 3 Current Visit: Yes Status: Chronic Assessment and plan: Continue wound care Cultures noted for MRSA, continue bactrim (8) Ulcer of left thigh Current Visit: Yes Status: Chronic Assessment and plan: As above Qualifiers: Non-pressure ulcer stage: limited to breakdown of skin Qualified Code(s): L97.121 - Non-pressure chronic ulcer of left thigh limited to breakdown of skin (9) Congestive heart failure Current Visit: Yes Status: Chronic Assessment and plan: Not an exacerbation. I/O -negative balance Last echo shows EF of 60% with indeterminant diastolic dysfunction. Patient is on Lasix at home. Continue lasix at 20mg daily, continue to monitor chem Patient is not compliant with fluid restriction Qualifiers: Congestive heart failure type: diastolic Congestive heart failure chronicity: chronic Qualified Code(s): I50.32 - Chronic diastolic (congestive ) heart failure (10) Complication of urostomy Current Visit: Yes Status: Acute Assessment and plan: Urology eval noted behavioral modification assistant pending, cultures taken from urostomy wound 12/14, pending result on bactrim for LLE MRSA infection, continue same - Subjective Interval history: Seen and examined 47-year-old male with history of spina bifida with paraparesis, mostly bedbound , with recurrent admissions for multiple resistant organism urinary tract infection and cellulitis. He also has stage II pressure ulcers of his left buttock and left heel. He is readmitted this time for presumed sepsis secondary to cellulitis of the left lower extremity, as well as viral URI No new complains, of note, the RN did note purulence from his urostomy site Urology was consulted and recommendations included airing out the wound for now and consult wound care We will also obtain cultures from this site, as his left lower extremity wound was clean and did not look infected He is however growing MRSA from the Left heel ulcer He is not septic - Constitutional Vitals: Temp Pulse Resp BP Pulse Ox 97.7 F 83 16 121/77 94 12/15/17 07:01 12/15/17 07:01 12/15/17 07:01 12/15/17 07:01 12/15/17 10:02 General appearance: Present: disheveled, A&O X 3, morbidly obese, no acute distress - Head Head exam: Present: atraumatic, normocephalic - Eye Eye exam: Present: PERRL, conjuntiva pink, sclera anicteric Pupils: Present: PERRL - Neck Neck exam general surgery: Present: supple, trachea midline. Absent: lymphadenopathy - Respiratory Respiratory exam: Present: CTAB. Absent: accessory muscle use, rales, rhonchi, wheezes - Cardiovascular Cardiovascular exam: Present: RRR, +S1, +S2. Absent: diastolic murmur, gallop, rubs, systolic murmur - GI/Abdominal Additional comments: R urostomy bag on RUQ filled with clear urine, wound not dirty today, abdomen is soft and not tender - Extremities Exam Additional comments: L thigh wound dressing clean and dry L heel wounds clean and dry - Neurological Exam Neurological exam: Present: alert, CN II-XII intact, oriented X3, no focal deficits. Absent: pronater drift, facial droop, speech deficit - Skin Skin exam: Present: dry Internal Medicine: Result - Labs CBC & Chem 7: 12/15/17 05:48 12/15/17 05:48 Labs: Short CBC 12/15/17 Range/Units 05:48 WBC 11.0 (4.3-11.1) K/mcL Hgb 11.0 L (12.9-16.9) g/dL Hct 35.4 L (37.5-50.1) % Plt Count 306 (140-400) K/mcL Neutrophils # 8.0 (1.6-8.9) K/mcL BMP 12/15/17 05:48 Sodium 137 Potassium 4.4 Chloride 106 Carbon Dioxide 20 L BUN 16 Creatinine 1.02 Glucose 107 H Calcium 9.3 Consult Discharge Plan - Plan Referrals: Jaun Price MD [Primary Care Provider] - (ECF?)
[2017-12-16] MEDS: *HR* Heparin 5,000 UNIT/ML VIAL SQ SCH (05:51)
[2017-12-16] MEDS: Insulin LISPRO 300 UNITS/3 ML VIAL SQ SCH ×2 (07:54→11:41)
[2017-12-16] MEDS: Gentamicin Oint 15 GM TUBE TP SCH (09:24)
[2017-12-16] MEDS: Multivit/Ca/Min/Fe/FA 1 TAB TABLET PO SCH (09:24)
[2017-12-16] MEDS: Lactobacillus 1 EACH CAP.SPRINK PO SCH (09:24)
[2017-12-16] MEDS: Loratadine 10 MG TABLET PO SCH (09:24)
[2017-12-16] MEDS: Cholecalciferol (D-3) 1,000 UNIT TABLET PO SCH (09:24)
[2017-12-16] MEDS: Furosemide 20 MG TABLET PO SCH (09:24)
[2017-12-16] MEDS: Sulfamethoxazole/Trimeth DS 1 EACH TABLET PO SCH (09:24)
--- NOTE | 2017-12-16 13:48 | Discharge Summary ---
<Li Fiore - Last Filed: 12/16/17 14:23> Date of Encounter: 12/16/17 Time of Encounter: 13:46 - Discharge Diagnosis (1) Cellulitis of left lower extremity Priority: Primary Status: Acute (2) Pressure ulcer of left heel, stage 3 Priority: Secondary Status: Chronic (3) Spina bifida Priority: Secondary Status: Chronic Qualifiers: Spinal region: lumbosacral Presence of hydrocephalus: unspecified hydrocephalus presence Qualified Code(s): Q05.7 - Lumbar spina bifida without hydrocephalus (4) Hyperlipidemia Priority: Secondary Status: Chronic Qualifiers: Hyperlipidemia type: unspecified Qualified Code(s): E78.5 - Hyperlipidemia , unspecified (5) Hypothyroidism Priority: Secondary Status: Chronic Qualifiers: Hypothyroidism type: unspecified Qualified Code(s): E03.9 - Hypothyroidism , unspecified (6) URI (upper respiratory infection) Priority: Secondary Status: Resolved Qualifiers: URI type: unspecified viral URI Qualified Code(s): J06.9 - Acute upper respiratory infection, unspecified; B97.89 - Other viral agents as the cause of diseases classified elsewhere; B97.89 - Other viral agents as the cause of diseases classified elsewhere (7) Congestive heart failure Priority: Secondary Status: Chronic Qualifiers: Congestive heart failure type: diastolic Congestive heart failure chronicity: chronic Qualified Code(s): I50.32 - Chronic diastolic (congestive ) heart failure (8) Complication of urostomy Priority: Secondary Status: Acute - Discharge Medications Prescriptions: Collagenase Oint [Santyl] 1 appl TP DAILY #1 tube Gentamicin Oint [Garamycin] 1 appl TP DAILY #1 tube Sulfamethoxazole/Trimeth DS [Bactrim Ds] 1 each PO BID #6 tablet Home Medications: Cholecalciferol (Vitamin D3) [Vitamin D3] 5,000 unit PO DAILY 11/12/16 [History] Fluticasone Propionate [Flovent Hfa] 1 - 2 puff IH BID 11/12/16 [History] Levothyroxine [Synthroid] 200 mcg PO DAILY 11/12/16 [History] Lactobacillus Acidophilus/Fos [Acidophilus Probiotic Tablet] 1 cap PO DAILY 06/17 [History] Loratadine [Claritin] 10 mg PO DAILY 03/08/17 [History] Multivitamin [One Daily Multivitamin] 1 tab PO DAILY 03/08/17 [History] Enalapril Maleate [Vasotec] 10 mg PO DAILY 03/23/17 [History] Omeprazole [PriLOSEC] 20 mg PO DAILY 08/25/17 [History] Furosemide [Lasix] 40 mg PO DAILY 7 Days #7 tablet 08/30/17 [Rx] Atorvastatin [Lipitor] 40 mg PO HS 11/14/17 [History] Nystatin OINT [Mycostatin] 1 appl TP BID 12/12/17 [History] Collagenase Oint [Santyl] 1 appl TP DAILY #1 tube 12/16/17 [Rx] Gentamicin Oint [Garamycin] 1 appl TP DAILY #1 tube 12/16/17 [Rx] Sulfamethoxazole/Trimeth DS [Bactrim Ds] 1 each PO BID #6 tablet 12/16/17 [Rx] Allergies/Adverse Reactions: 3 Allergy/AdvReac Type Severity Reaction Status Date / Time adhesive Allergy Blister Verified 12/10/17 21:23 Amoxicillin Allergy Hives Verified 12/10/17 21:23 Oxaprozin [From Daypro] AdvReac Diarrhea Verified 12/10/17 21:23 Date of admission: 12/11/17 12:47 Primary care physician: Jaun Price MD Consults: 12/11/17 13:45 Consult to Infectious Diseases [CONS] Routine Consulting Provider: [facility] Reason for Consult: Patient with history of Proteus infection of posterior left thigh wounds and recent VRE and Proteus UTI admitted with cellulitis and infected left posterior leg wounds and pressure sore on left heal. Antibiotic assistance. Time Notified: 13:46 Call Completed: Yes 12/12/17 13:57 Consult to Invasive Line Access Team [CONS] Routine Reason for Consult: detention iv antibiotics Line Type: EPIV 12/12/17 15:25 Consult to Occupational Therapy [CONS] Routine Comment: Evaluate, develop and implement POC Reason for Consult: eval for ecf Consult to Physical Therapy [CONS] Routine Comment: Evaluate, develop and implement POC Reason for Consult: eval for ecf 12/15/17 07:15 Consult to Wound Care [CONS] Routine Reason for Consult: wound near ostomy site Call Completed: No Discharging clinician: Kieran Navarrete Anticipated date of discharge: 12/16/17 - Patient Status Disposition: Home Health Service Condition: Good Functional capacity at discharge: uses cane/walker (uses crutches) Overall status at discharge: patient is back to baseline - Discharge Instructions Follow Up With: Jaun Price MD [Primary Care Provider] - (ECF?) Additional Instructions: F/u with family physician in 2 weeks finish bactrim f/u with wound care out patient. Have home health and nurse change dressing continue with PT/OT - Diet and Activity Activity: as per physical therapy, resume usual activities as tolerated Diet: advance to your usual diet Interval History: Mr. Leone is currently resting comfortable in his bed and states that he is feeling better. He has no new complaints at this time. Hospital course: Mr Leone is a 47 year old man with PMHx of CHF, hypertension, hyperlipidemia, urostomy and spina bifida. He initially presented to [facility] ED on 12/10/2017 with a 3 day history of a decubitus ulcers and cellulitis of his left heal and left posterior thigh because the odor was worsening. He has wound care at home and his home extension agent told him to go to the ED. He was admitted and has now finished a course of Ertapenem and Zyvox. Patient is not septic. Patient was recently admitted in November with VRE and Proteus UTI and has a history of MRSA. Infectious disease believed that the proteous was a contaminate. Blood cultures were negative. The patient was switched to bactim. Due to his spina bifida, he has decreased sensation of both lower extremities. Upon admission, his WBC count was 17.7 and his ESR was >130. CT of the lower extremities did not find any evidence of osteomyelitis. Patient also presented with symptoms of URI and a nonproductive cough, but CXR showed no acute process. While here, urology was consulted for presence of purulence at his ostomy site and recommended airing out the wound for now and following up with wound-care. PT/OT evaluated the patient and recommended PT/OT out patient. As of 12/15 at 23:59, his WBC count is down to 11.0. Mr Leone is being discharged with wound-care follow-up and oral Bactrim to complete a 7 day course. He already has home health. At time of discharge he reported that his leg pain, erythema, and swelling had improved. The treatment and plan were discussed with the patient and he stated a clear understanding. - Time Spent with Patient Total time spent providing and/or coordinating discharge services: Greater than 30 minutes - Constitutional Vitals: Temp Pulse Resp BP Pulse Ox 98.2 F 86 17 114/70 98 12/16/17 11:32 12/16/17 11:32 12/16/17 11:32 12/16/17 11:32 12/16/17 11:32 General appearance: Present: disheveled, A&O X 3, morbidly obese, no acute distress - Head Head exam: Present: atraumatic, normocephalic - Respiratory Respiratory exam: Present: CTAB. Absent: rales, wheezes - Cardiovascular Cardiovascular exam: Present: RRR - Extremities Exam Extremities exam: Present: warm. Absent: calf tenderness, tenderness - Expanded Lower Extremities Exam Lower Leg exam: Present: swelling. Absent: tenderness Foot/Toe exam: Absent: erythema - Neurological Exam Neurological exam: Present: alert, oriented X3 - Psychiatric Psychiatric exam: Present: normal affect, normal mood - Skin Skin exam: Present: warm. Absent: dry, intact <Kieran Navarrete T - Last Filed: 12/16/17 15:27> Date of Encounter: 12/16/17 - Discharge Diagnosis (1) Spina bifida Status: Chronic Qualifiers: Spinal region: lumbosacral Presence of hydrocephalus: unspecified hydrocephalus presence Qualified Code(s): Q05.7 - Lumbar spina bifida without hydrocephalus (2) Essential hypertension Status: Chronic (3) Hyperlipidemia Status: Chronic Qualifiers: Hyperlipidemia type: unspecified Qualified Code(s): E78.5 - Hyperlipidemia , unspecified (4) Hypothyroidism Status: Chronic Qualifiers: Hypothyroidism type: unspecified Qualified Code(s): E03.9 - Hypothyroidism , unspecified (5) Cellulitis of left lower extremity Status: Acute (6) URI (upper respiratory infection) Status: Resolved Qualifiers: URI type: unspecified viral URI Qualified Code(s): J06.9 - Acute upper respiratory infection, unspecified; B97.89 - Other viral agents as the cause of diseases classified elsewhere; B97.89 - Other viral agents as the cause of diseases classified elsewhere (7) Pressure ulcer of left heel, stage 3 Status: Chronic (8) Ulcer of left thigh Status: Chronic Qualifiers: Non-pressure ulcer stage: limited to breakdown of skin Qualified Code(s): L97.121 - Non-pressure chronic ulcer of left thigh limited to breakdown of skin (9) Congestive heart failure Status: Chronic Qualifiers: Congestive heart failure type: diastolic Congestive heart failure chronicity: chronic Qualified Code(s): I50.32 - Chronic diastolic (congestive ) heart failure (10) Complication of urostomy Status: Acute Date of admission: 12/11/17 12:47 Primary care physician: Jaun Price MD Consults: 12/11/17 13:45 Consult to Infectious Diseases [CONS] Routine Consulting Provider: [facility] Reason for Consult: Patient with history of Proteus infection of posterior left thigh wounds and recent VRE and Proteus UTI admitted with cellulitis and infected left posterior leg wounds and pressure sore on left heal. Antibiotic assistance. Time Notified: 13:46 Call Completed: Yes 12/12/17 13:57 Consult to Invasive Line Access Team [CONS] Routine Reason for Consult: detention iv antibiotics Line Type: EPIV 12/12/17 15:25 Consult to Occupational Therapy [CONS] Routine Comment: Evaluate, develop and implement POC Reason for Consult: eval for ecf Consult to Physical Therapy [CONS] Routine Comment: Evaluate, develop and implement POC Reason for Consult: eval for ecf 12/15/17 07:15 Consult to Wound Care [CONS] Routine Reason for Consult: wound near ostomy site Call Completed: No Hospital course: Mr. Leone is a 47 year old male - Time Spent with Patient Total time spent providing and/or coordinating discharge services: - Constitutional Vitals: Temp Pulse Resp BP Pulse Ox 98.2 F 86 17 114/70 98 12/16/17 11:32 12/16/17 11:32 12/16/17 11:32 12/16/17 11:32 12/16/17 11:32 - Attending Attestation I have independently seen and e examined this patient today 12/16/17, and discussed plan of care with the patient today resident physician. 47-year-old male with spina bifida and paraparesis, complete has crutches at home with is mostly bedbound, with urostomy and left thigh and left heel decubitus ulcers. He was admitted for management of URI and wound infection with MRSA. He is clinically stable to be discharged home with home health services for his wound care and bactrim Resume and continue home meds In addition, he requires physical therapy and occupational therapy at home as well as nursing care. Follow-up care and infectious disease team. Rest as in resident physician's documentation
--- NOTE | 2017-12-16 14:13 | Infectious Disease Progress No ---
Date of Encounter: 12/16/17 Time of Encounter: 09:00 - Assessment and Plan (1) Sepsis Status: Resolved The patient had two SIRS criteria on admission. Etiology not clear: URI vs. cellulitisvs. other. Improved. Tachycardia resolved. WBC normalized. Blood cultures NGTD x 2 sets. Qualifiers: Sepsis type: sepsis due to unspecified organism Qualified Code(s): A41.9 - Sepsis, unspecified organism (2) URI (upper respiratory infection) Status: Resolved Could be contributing to the patient's leukocytosis. Likely viral, but RIP negative. Continue supportive care. Qualifiers: URI type: unspecified viral URI Qualified Code(s): J06.9 - Acute upper respiratory infection, unspecified; B97.89 - Other viral agents as the cause of diseases classified elsewhere; B97.89 - Other viral agents as the cause of diseases classified elsewhere (3) Ulcer of left thigh Status: Chronic Location: Left posterior thigh. Wound culture grew MDRO Proteus and MRSA. Given that the patient has improved on Ertapenem, I am not sure that the Proteus is actually the cause of the patient's symptoms vs. colonizer. Likely secondary to sedentary lifestyle and altered ability to ambulate. Clinically, does not appear infected, but the patient reports that the ulcers came back after being healed and there was a foul smell and drainage and his ESR >130. CT of the LLE was negative for OM or abscess. CRP mildly elevated at 26, but not impressive. Recommend aggressive wound care. I anticipate that the patient also has underlying venous insufficiency that leads to the swelling of the BLE and his non-healing ulcers. The patient also has a history of poor personal hygiene that likely plays a part as well. Continue Bactrim DS 1 tab PO BID x 5 days. Duration of treatment depends on the clinical picture. Monitor renal function and dose-adjust antibiotics. Qualifiers: Non-pressure ulcer stage: limited to breakdown of skin Qualified Code(s): L97.121 - Non-pressure chronic ulcer of left thigh limited to breakdown of skin (4) Ulcer of left heel Status: Acute Stage II. Likely secondary to sedentary lifestyle. Clinically, does not appear infected, but the patient reports that the ulcers came back after being healed and there was a foul smell and drainage and his ESR >130. CT of the LLE was negative for OM or abscess. CRP mildly elevated at 26, but not impressive. Recommend aggressive wound care. I anticipate that the patient also has underlying venous insufficiency that leads to the swelling of the BLE and his non-healing ulcers. The patient also has a history of poor personal hygiene that likely plays a part as well. Ertapenem discontinued by the primary team. Additional antibiotic recommendations as above. Qualifiers: Non-pressure ulcer stage: limited to breakdown of skin Qualified Code(s): L97.421 - Non-pressure chronic ulcer of left heel and midfoot limited to breakdown of skin (5) Bilateral lower extremity edema Status: Acute Likely multifactorial: venous insufficiency + dependent edema + history of CHF. Consider compression hose/dressings to assist with swelling. Management per the primary team. (6) Cough Status: Acute Chest XR negative. RIP negative as well. Could be secondary to CHF. (7) History of urostomy Status: Acute New ulceration noted to the area around the Urostomy site. Culture positive for MRSA. Continue Bactrim as above. Pending ostomy nurse evaluation. (8) Morbid obesity with BMI of 40.0-44.9, adult Status: Chronic (9) Type 2 diabetes mellitus Status: Chronic Recommend aggressive glucose monitoring and control to promote wound healing and prevent re-infection. Management per the primary team. Qualifiers: Diabetes mellitus complication status: with unspecified complications Diabetes mellitus exterminator helper termite insulin use: without exterminator helper termite use Qualified Code( s): E11.8 - Type 2 diabetes mellitus with unspecified complications (10) Left knee pain Status: Acute Improved. Left knee XR negative for osseous changes. Consider outpatient ortho evaluation. CT LE negative for septic arthritis. Pain management per the primary team. Qualifiers: Chronicity: acute Qualified Code(s): M25.562 - Pain in left knee - Subjective Interval history: Patient seen and examined. Weekend notes reviewed. Acute events noted. Patient resting quietly in bed. States overall he feels better and thinks his wounds are improving. States he slept well last night. Denies fevers, chills, or rigors. Denies chest pain, shortness of breath. States he still has a cough, but it is no longer productive. Denies nausea, vomiting, or diarrhea. Denies abdominal pain, urinary complaints, or appetite changes. Denies pain at this time. Was noted to have ulcer around urostomy and Urology was consulted. Had a vigil placed inside the urostomy, but it came out. Pending ostomy nurse evaluation. Infect Dis PN-Objective Data - Labs CBC & Chem 7: 12/15/17 05:48 12/15/17 05:48 Labs: Laboratory Results - last 24 hr 12/15/17 12/15/17 17:09 19:55 POC Glucose 131 H 141 H Cultures: Cultures 12/14/17 09:05 Wound Culture - Preliminary Other-Specify in Comments Staphylococcus aureus 12/12/17 08:57 Blood Culture - Preliminary Peripheral Venipuncture No growth. 12/12/17 08:50 Blood Culture - Preliminary Peripheral Venipuncture No growth. Serology 12/12/17 Range/Units 14:50 Chlamy pneumoniae PCR Not Detected (Not Detect) Adenovirus (PCR) Not Detected (Not Detect) B. pertussis DNA (PCR) Not Detected (Not Detect) Coronavirus OC43 (PCR) Not Detected (Not Detect) Coronavirus HKU1 (PCR) Not Detected (Not Detect) Coronavirus 229E (PCR) Not Detected (Not Detect) Coronavirus NL63 (PCR) Not Detected (Not Detect) Human Metapneumovir PCR Not Detected (Not Detect) Influenza A (H1) PCR Not Detected (Not Detect) Influ A (H1N1/09) PCR Not Detected (Not Detect) Influenza A (H3) PCR Not Detected (Not Detect) Influenza A Untype (PCR) Not Detected (Not Detect) Influenza Type B (PCR) Not Detected (Not Detect) M.pneumoniae DNA (PCR) Not Detected (Not Detect) Parainfluenza 1 (PCR) Not Detected (Not Detect) Parainfluenza 2 (PCR) Not Detected (Not Detect) Parainfluenza 3 (PCR) Not Detected (Not Detect) Parainfluenza 4 (PCR) Not Detected (Not Detect) RSV (PCR) Not Detected (Not Detect) Entero/Rhino (PCR) Not Detected (Not Detect) Exam - Constitutional Vitals: Temp Pulse Resp BP Pulse Ox 98.2 F 86 17 114/70 98 12/16/17 11:32 12/16/17 11:32 12/16/17 11:32 12/16/17 11:32 12/16/17 11:32 General appearance: cooperative, no acute distress, obese - Head Head exam: Present: atraumatic, normal inspection, normocephalic - Eye Eye exam: Present: EOMI, normal appearance, PERRL Pupils: Present: normal accommodation - ENT ENT exam: Present: mucous membranes moist Additional comments: Very poor dentition noted. - Neck Neck exam: Present: normal inspection - Respiratory Respiratory exam: Present: CTAB. Absent: rales, respiratory distress, rhonchi, wheezes - Cardiovascular Cardiovascular exam: Present: RRR, +S1, +S2 - GI/Abdominal GI/Abdominal exam: Present: distended (obese), normal bowel sounds, soft. Absent: tenderness Additional comments: Urostomy noted to the RLQ with collection appliance intact with a small amount of leakage noted. Draining clear yellow urine. - Extremities Exam Extremities exam: Present: pedal edema (2+ BLE). Absent: joint swelling, tenderness Additional comments: Left foot dressing C/D/I. Left posterior thigh stage II ulcer noted with wound bed 100% granulation tissue. No redness, warmth, or purulent drainage noted. - Neurological Exam Neurological exam: Present: alert, oriented X3. Absent: facial droop, speech deficit - Psychiatric Psychiatric exam: Present: normal affect, normal mood - Skin Skin exam: Present: dry, intact, normal color, warm Consult Discharge Plan - Plan Additional Instructions: F/u with family physician in 2 weeks finish bactrim f/u with wound care out patient. Have home health and nurse change dressing continue with PT/OT Referrals: Jaun Price MD [Primary Care Provider] - (ECF?) Maria Elena An MD [Partnered Physician] - 12/23/17 1:45 pm (Please follow up as schedule...) Prescriptions: Collagenase Oint [Santyl] 1 appl TP DAILY #1 tube Gentamicin Oint [Garamycin] 1 appl TP DAILY #1 tube Sulfamethoxazole/Trimeth DS [Bactrim Ds] 1 each PO BID #6 tablet - Attending Attestation I examined this patient and my medical decision-making was reviewed with the Resident Physician. I agree with the documented findings, disposition and treatment plan as described except to the extent set forth below.
--- NOTE | 2017-12-16 15:00 | Physician Discharge Referral ---
Home Health/Hosp Referral Info Transfer to: Home Health Provider in Charge Post Discharge: PCP - Diagnosis (1) Cellulitis of left lower extremity Priority: Primary Status: Acute (2) Pressure ulcer of left heel, stage 3 Priority: Secondary Status: Chronic (3) Spina bifida Priority: Secondary Status: Chronic (4) Hyperlipidemia Priority: Secondary Status: Chronic (5) Hypothyroidism Priority: Secondary Status: Chronic (6) URI (upper respiratory infection) Priority: Secondary Status: Resolved (7) Congestive heart failure Priority: Secondary Status: Chronic (8) Complication of urostomy Priority: Secondary Status: Acute - Respiratory Orders None Smoking Cessation: Smoking cessation has been advised. For more information, call the [place] Tobacco Quit Line at 6-777-SMQU-NOW. - Dressing/Wound Care Site: [facility] will continue current wound care directions of treatment - Diet/Nutrition Diet/Nutrition Orders: No Added Salt (MICHAEL) - Activity Activity Orders: Ambulate - Services Needed Following services are medically necessary services: Nursing, Home Health Aide, Physical Therapy, Occupational Therapy - Transfer Medications Prescriptions: Collagenase Oint [Santyl] 1 appl TP DAILY #1 tube Gentamicin Oint [Garamycin] 1 appl TP DAILY #1 tube Sulfamethoxazole/Trimeth DS [Bactrim Ds] 1 each PO BID #6 tablet Home Medications: Cholecalciferol (Vitamin D3) [Vitamin D3] 5,000 unit PO DAILY 11/12/16 [History] Fluticasone Propionate [Flovent Hfa] 1 - 2 puff IH BID 11/12/16 [History] Levothyroxine [Synthroid] 200 mcg PO DAILY 11/12/16 [History] Lactobacillus Acidophilus/Fos [Acidophilus Probiotic Tablet] 1 cap PO DAILY 06/17 [History] Loratadine [Claritin] 10 mg PO DAILY 03/08/17 [History] Multivitamin [One Daily Multivitamin] 1 tab PO DAILY 03/08/17 [History] Enalapril Maleate [Vasotec] 10 mg PO DAILY 03/23/17 [History] Omeprazole [PriLOSEC] 20 mg PO DAILY 08/25/17 [History] Furosemide [Lasix] 40 mg PO DAILY 7 Days #7 tablet 08/30/17 [Rx] Atorvastatin [Lipitor] 40 mg PO HS 11/14/17 [History] Nystatin OINT [Mycostatin] 1 appl TP BID 12/12/17 [History] Collagenase Oint [Santyl] 1 appl TP DAILY #1 tube 12/16/17 [Rx] Gentamicin Oint [Garamycin] 1 appl TP DAILY #1 tube 12/16/17 [Rx] Sulfamethoxazole/Trimeth DS [Bactrim Ds] 1 each PO BID #6 tablet 12/16/17 [Rx] Allergies/Adverse Reactions: 3 Allergy/AdvReac Type Severity Reaction Status Date / Time adhesive Allergy Blister Verified 12/10/17 21:23 Amoxicillin Allergy Hives Verified 12/10/17 21:23 Oxaprozin [From Daypro] AdvReac Diarrhea Verified 12/10/17 21:23 Certification: Further, I certify that my clinical findings support that this patient is homebound (i.e. absences from home require considerable and taxing effort and are for medical reasons or [employer] services or infrequently or short duration when for other reasons) because: The patient is a fall risk due to instability. Homebound Reason: Leaving home requires considerable and taxing effort due to condition Attestation: My signature below is to certify that this patient is under my care and that I, or nurse practitioner, or a physician's clinical services assistant working with me, has a face-to -face encounter with this patient. Li Fiore
[2017-12-16 15:25] VITALS: BP 135/84
== END 2017-12-16 17:20 | disposition home health service (06) | DRG 602 ==
LOC: EMEROO 20:40 → 2ANU 20:40 → SUATTDRO 12-11 04:17 → 2ANU 12-11 04:55 → SUATTDRO 12-11 12:47
PROVIDERS: ADMIT Internal Medicine; ATTEND Internal Medicine

== ENCOUNTER 2018-01-12 22:43 | Inpatient (IN) ==
[2018-01-12] MEDS ORDERED: Ketorolac 30 MG/ML VIAL IVP ONE (22:56)
--- NOTE | 2018-01-12 23:29 | Emergency Department Note ---
Disposition Clinical Impression: NSTEMI (non-ST elevated myocardial infarction), Elevated troponin UTI (urinary tract infection) Qualifiers: Urinary tract infection type: site unspecified Hematuria presence: without hematuria Qualified Code(s): N39.0 - Urinary tract infection, site not specified Nausea and vomiting Qualifiers: Vomiting type: unspecified Vomiting Intractability: unspecified Qualified Code( s): R11.2 - Nausea with vomiting, unspecified Chest pain Qualifiers: Chest pain type: unspecified Qualified Code(s): R07.9 - Chest pain, unspecified Dyspnea Qualifiers: Dyspnea type: unspecified Qualified Code(s): R06.00 - Dyspnea, unspecified Disposition: Admitted As Inpatient Condition: Good Time of Disposition: 01:19 General Adult HPI - General Chief complaint: ED Upper Respiratory Infection Stated complaint: Flu like Symptoms Time Seen by Provider: 01/12/18 22:56 Source: patient Mode of arrival: ambulatory Limitations: no limitations Nursing Notes Reviewed: Yes Vital Signs Reviewed: Yes - History of Present Illness HPI Narrative: Patient is a 48-year-old male with past medical history of urostomy, chronic wounds of abdomen and lower extremities that he receives home health care for, extension, hyperlipidemia, CAD. He presents today due to flulike symptoms. He states that yesterday, he had chest pain, shortness of breath and sweating. Today, he says that he has had nausea, vomiting, diarrhea multiple times. Denies any blood in vomit or stool. He has had subjective fevers and sweating. He also admits to diffuse body aches. Denies any chest pain or shortness of breath last night. Denies any numbness, tingling, weakness. Pain Scale: 0 - Related Data Home Medications Medication Instructions Recorded Confirmed Cholecalciferol (Vitamin D3) 5,000 unit PO DAILY 11/12/16 01/13/18 [Vitamin D3] Fluticasone Propionate [Flovent 1 - 2 puff IH BID 11/12/16 01/13/18 Hfa] Levothyroxine [Synthroid] 200 mcg PO DAILY 11/12/16 01/13/18 Lactobacillus Acidophilus/Fos 1 cap PO DAILY 03/08/17 01/13/18 [Acidophilus Probiotic Tablet] Loratadine [Claritin] 10 mg PO DAILY 03/08/17 01/13/18 Multivitamin [One Daily 1 tab PO DAILY 03/08/17 01/13/18 Multivitamin] Enalapril Maleate [Vasotec] 10 mg PO DAILY 03/23/17 01/13/18 Omeprazole [PriLOSEC] 20 mg PO DAILY 08/25/17 01/13/18 Atorvastatin [Lipitor] 40 mg PO HS 11/14/17 01/13/18 Previous Rx's Medication Instructions Recorded Furosemide [Lasix] 40 mg PO DAILY 7 Days #7 tablet 08/30/17 Allergies Allergy/AdvReac Type Severity Reaction Status Date / Time adhesive Allergy Blister Verified 12/10/17 21:23 Amoxicillin Allergy Hives Verified 12/10/17 21:23 Oxaprozin [From Daypro] AdvReac Diarrhea Verified 12/10/17 21:23 All systems ED: reviewed and negative except as stated. Constitutional: Reports: fever Cardiovascular: Reports: chest pain Respiratory: Reports: cough, dyspnea Gastrointestinal: Reports: nausea, vomiting, diarrhea. Denies: abdominal pain, constipation, hematemesis, melena, hematochezia Neurological: Denies: weakness, numbness, paresthesias Past Medical History - Past Medical History Attestation: Yes The following information was validated with the patient. Source: patient Medical history: Reports: asthma, cancer, CHF, CVA, hyperlipidemia, hypertension , thyroid disease, other Surgical history: Reports: appendectomy, orthopedic, other (Hardware in the BLE) , vasectomy, other (Cystectomy) Psychiatric history: Reports: depression - Social History Smoking Status: Never smoker Smokeless Tobacco Status: No Alcohol use: Reports: none Drug use: Reports: none Physical Exam - General General appearance: alert, in no apparent distress - Head Head exam: atraumatic, normocephalic, normal inspection - Eye Eye exam: Present: normal appearance, PERRL, EOMI - ENT ENT exam: normal exam, normal oropharynx, mucous membranes moist - Neck Neck exam: Present: normal inspection, full ROM, trachea midline - Chest Chest inspection: Present: normal inspection, symmetric chest wall rise - Respiratory Respiratory exam: Present: normal lung sounds bilaterally. Absent: respiratory distress, wheezes, stridor - Cardiovascular Cardiovascular exam: Present: normal rhythm, tachycardia, normal heart sounds - Abdominal Exam Abdominal exam: Present: soft, Non-Tender. Absent: tenderness, distention, guarding, rebound, rigidity - Extremities Exam Extremities exam: Present: normal inspection, full ROM. Absent: tenderness, pedal edema - Neurological Exam Neurological exam: Present: alert, oriented X3 - Psychiatric Psychiatric exam: Present: normal affect, normal mood - Skin Skin exam: Present: warm, dry, intact, normal color, other (Clean, dry, intact bandage abdomen, bilateral lower extremities.) Course Course Narrative: Patient was tachycardic. Otherwise, the rest of the vitals within normal limits. Physical exam shows clear lungs, sinus tachycardia, abdomen soft and nontender. In no acute distress. Basic labs were drawn. No major electrolyte abnormalities, no major abnormalities in CBC. Urinalysis did show UTI. Flu negative. Chest x-ray was negative for any acute cardiopulmonary process. EKG showed a normal sinus rhythm with no acute ST changes. Troponin was elevated at 1.0. Patient was given aspirin 325. He is also given Zofran for nausea. Due to history of chest pain or shortness of breath yesterday, the patient was started on heparin. He is also started on Rocephin for UTI. Patient will be admitted to the hospitalist for further care. Hospitalist has requested that we obtain a CRP, sedimentation rate, blood cultures. Chest X-Ray 01/12/18 23:36 IMPRESSION: No acute cardiopulmonary abnormality. D/ / Severiano Pelayo / Severiano Pelayo Interpreting Provider: Severiano Pelayo Vital Signs Temperature 98.9 F 01/12/18 22:44 Pulse Rate 116 01/12/18 22:44 Respiratory Rate 20 01/12/18 22:44 Blood Pressure 145/84 01/12/18 22:44 O2 Sat by Pulse Oximetry 97 01/12/18 22:44 Temperature 98.2 F 01/13/18 02:53 Pulse Rate 90 01/13/18 02:53 Respiratory Rate 18 01/13/18 02:53 Blood Pressure 140/67 01/13/18 02:53 O2 Sat by Pulse Oximetry 99 01/13/18 02:53 Oxygen Delivery Oxygen Delivery Room Air Medical Decision Making - MDM Narrative Medical decision making narrative: Patient was tachycardic. Otherwise, the rest of the vitals within normal limits. Physical exam shows clear lungs, sinus tachycardia, abdomen soft and nontender. In no acute distress. Basic labs were drawn. No major electrolyte abnormalities, no major abnormalities in CBC. Urinalysis did show UTI. Flu negative. Chest x-ray was negative for any acute cardiopulmonary process. EKG showed a normal sinus rhythm with no acute ST changes. Troponin was elevated at 1.0. Patient was given aspirin 325. He is also given Zofran for nausea. Due to history of chest pain or shortness of breath yesterday, the patient was started on heparin. He is also started on Rocephin for UTI. Patient will be admitted to the hospitalist for further care. Hospitalist has requested that we obtain a CRP, sedimentation rate, blood cultures. - Medical Records Medical records reviewed: Yes I reviewed the patient's medical records. - Lab Data Lab results reviewed: Yes I reviewed the patient's lab results. Result diagrams: 01/13/18 03:38 01/13/18 03:38 Lab Results 01/12/18 01/12/18 01/12/18 Range/Units 23:42 23:46 23:46 WBC 10.2 (4.3-11.1) K/mcL RBC 4.93 (4.19-5.50) M/mcL Hgb 12.6 L (12.9-16.9) g/dL Hct 40.3 (37.5-50.1) % MCV 81.7 L (83.0-100.0) fL MCH 25.6 L (28.0-33.3) pg MCHC 31.3 L (31.6-35.5) g/dL RDW 17.2 H (11.5-14.5) % Plt Count 390 (140-400) K/mcL MPV 10.1 (9.4-12.4) fL Immature Gran % 0.2 (0-4) % Seg Neutrophils % 67.6 % Lymphocytes % 19.3 % Monocytes % 6.3 % Eosinophils % 6.1 % Basophils % 0.5 % Neutrophils # 6.9 (1.6-8.9) K/mcL Lymphocytes # 2.0 (0.6-4.6) K/mcL Monocytes # 0.6 (0.0-1.3) K/mcL Eosinophils # 0.6 (0.0-0.6) K/mcL Basophils # 0.1 (0.0-0.2) K/mcL ESR (0-10) mm/hr PT (9.4-12.1) Seconds INR APTT (26.0-36.0) Seconds Sodium 135 L (136-145) mEq/L Potassium 3.3 L (3.5-5.1) mEq/L Chloride 101 (98-107) mEq/L Carbon Dioxide 22 L (23-29) mEq/L BUN 13 (6-20) mg/dL Creatinine 1.26 (0.70-1.30) mg/dL Est GFR ( Amer) > 60 (> 60) Est GFR (Non-Af Amer) > 60 (> 60) BUN/Creatinine Ratio 10 (6-26) Glucose 175 H (70-105) mg/dL Calculated Osmolality 284 (280-300) Calcium 9.1 (8.6-10.3) mg/dL Troponin I (< 0.04) ng/mL C-Reactive Protein (Less than 10) mg/L B-Natriuretic Peptide (Less than 100) pg/mL Urine Color Yellow (Yellow) Urine Clarity Cloudy A (Clear) Urine pH 6.0 (5.0-8.0) pH Units Ur Specific Jemison 1.015 (1.010-1.025) Urine Protein Trace (Neg-Trace) mg/dL Urine Glucose (UA) Normal (Normal) mg/dL Urine Ketones Negative (Negative) mg/dL Urine Blood Large H (Negative) Urine Nitrite Negative (Negative) Urine Bilirubin Negative (Negative) Urine Urobilinogen Normal (Normal) mg/dL Ur Leukocyte Esterase Large H (Negative) Urine Microscopic RBC TNTC H (0-3) per hpf Urine Microscopic WBC 50-100 H (0-3) per hpf Ur Squamous Epith Cells Moderate H (None-Few) per lpf Urine Bacteria None Seen (None-Few) per hpf Hyaline Casts None Seen (None-Few) per lpf Ur Culture Indicated? YES A (NO) 01/12/18 01/12/18 01/12/18 Range/Units 23:46 23:46 23:46 WBC (4.3-11.1) K/mcL RBC (4.19-5.50) M/mcL Hgb (12.9-16.9) g/dL Hct (37.5-50.1) % MCV (83.0-100.0) fL MCH (28.0-33.3) pg MCHC (31.6-35.5) g/dL RDW (11.5-14.5) % Plt Count (140-400) K/mcL MPV (9.4-12.4) fL Immature Gran % (0-4) % Seg Neutrophils % % Lymphocytes % % Monocytes % % Eosinophils % % Basophils % % Neutrophils # (1.6-8.9) K/mcL Lymphocytes # (0.6-4.6) K/mcL Monocytes # (0.0-1.3) K/mcL Eosinophils # (0.0-0.6) K/mcL Basophils # (0.0-0.2) K/mcL ESR (0-10) mm/hr PT 12.0 (9.4-12.1) Seconds INR 1.1 APTT 29.0 (26.0-36.0) Seconds Sodium (136-145) mEq/L Potassium (3.5-5.1) mEq/L Chloride (98-107) mEq/L Carbon Dioxide (23-29) mEq/L BUN (6-20) mg/dL Creatinine (0.70-1.30) mg/dL Est GFR ( Amer) (> 60) Est GFR (Non-Af Amer) (> 60) BUN/Creatinine Ratio (6-26) Glucose (70-105) mg/dL Calculated Osmolality (280-300) Calcium (8.6-10.3) mg/dL Troponin I 1.02 H* (< 0.04) ng/mL C-Reactive Protein (Less than 10) mg/L B-Natriuretic Peptide 12 (Less than 100) pg/mL Urine Color (Yellow) Urine Clarity (Clear) Urine pH (5.0-8.0) pH Units Ur Specific Jemison (1.010-1.025) Urine Protein (Neg-Trace) mg/dL Urine Glucose (UA) (Normal) mg/dL Urine Ketones (Negative) mg/dL Urine Blood (Negative) Urine Nitrite (Negative) Urine Bilirubin (Negative) Urine Urobilinogen (Normal) mg/dL Ur Leukocyte Esterase (Negative) Urine Microscopic RBC (0-3) per hpf Urine Microscopic WBC (0-3) per hpf Ur Squamous Epith Cells (None-Few) per lpf Urine Bacteria (None-Few) per hpf Hyaline Casts (None-Few) per lpf Ur Culture Indicated? (NO) 01/13/18 01/13/18 Range/Units 01:45 01:45 WBC (4.3-11.1) K/mcL RBC (4.19-5.50) M/mcL Hgb (12.9-16.9) g/dL Hct (37.5-50.1) % MCV (83.0-100.0) fL MCH (28.0-33.3) pg MCHC (31.6-35.5) g/dL RDW (11.5-14.5) % Plt Count (140-400) K/mcL MPV (9.4-12.4) fL Immature Gran % (0-4) % Seg Neutrophils % % Lymphocytes % % Monocytes % % Eosinophils % % Basophils % % Neutrophils # (1.6-8.9) K/mcL Lymphocytes # (0.6-4.6) K/mcL Monocytes # (0.0-1.3) K/mcL Eosinophils # (0.0-0.6) K/mcL Basophils # (0.0-0.2) K/mcL ESR 54 H (0-10) mm/hr PT (9.4-12.1) Seconds INR APTT (26.0-36.0) Seconds Sodium (136-145) mEq/L Potassium (3.5-5.1) mEq/L Chloride (98-107) mEq/L Carbon Dioxide (23-29) mEq/L BUN (6-20) mg/dL Creatinine (0.70-1.30) mg/dL Est GFR ( Amer) (> 60) Est GFR (Non-Af Amer) (> 60) BUN/Creatinine Ratio (6-26) Glucose (70-105) mg/dL Calculated Osmolality (280-300) Calcium (8.6-10.3) mg/dL Troponin I (< 0.04) ng/mL C-Reactive Protein 13 H (Less than 10) mg/L B-Natriuretic Peptide (Less than 100) pg/mL Urine Color (Yellow) Urine Clarity (Clear) Urine pH (5.0-8.0) pH Units Ur Specific Jemison (1.010-1.025) Urine Protein (Neg-Trace) mg/dL Urine Glucose (UA) (Normal) mg/dL Urine Ketones (Negative) mg/dL Urine Blood (Negative) Urine Nitrite (Negative) Urine Bilirubin (Negative) Urine Urobilinogen (Normal) mg/dL Ur Leukocyte Esterase (Negative) Urine Microscopic RBC (0-3) per hpf Urine Microscopic WBC (0-3) per hpf Ur Squamous Epith Cells (None-Few) per lpf Urine Bacteria (None-Few) per hpf Hyaline Casts (None-Few) per lpf Ur Culture Indicated? (NO) - Radiology Data Radiology results reviewed: Yes I reviewed the patient's radiology results. Chest X-Ray 01/12/18 23:36 IMPRESSION: No acute cardiopulmonary abnormality. D/ / Severiano Pelayo / Seveirano Pelayo Interpreting Provider: Severiano Pelayo - EKG Data EKG #1 EKG attestation: Yes I reviewed and interpreted this EKG. EKG results narrative: 01/12/2018 at 23:51. Normal sinus rhythm. No acute ST elevation or depression. Normal axis. Rate 97. VT 136. QRS 94. QTC 399. S.B.A.R. - S.B.A.R. Situation: Demographics, MOA Background: Presenting Complaint, Relevant PMH, Meds, & Allergies Assessment: Vital Signs, Course and respsone to treatment, Exam Concerns, Patient/Family Expectation, Pertinant Lab Results, Outstanding Labs Recommendation: Barrier(s) to disposition, Recommendation based on pending studies, treatments, or consults S.B.A.R. Report Given to: Dr. Vidal Attestation Statement - Attestation Attestation: I examined this patient and my medical decision-making was reviewed with the Resident Physician. I agree with the documented findings, disposition and treatment plan as described except to the extent set forth below. Findings consistent with an nSTEMI. We will start heparin. Patient be admitted for serial cardiac biomarkers. Stable at time of admission. Critical care performed:35 Time is exclusive of separately billable procedures. Time includes: direct patient care, patient reassessment, coordination of patient care, interpretation of data (laboratory data, radiology data, and respiratory data), review of patient's medical records, medical consultation and documentation of patient care. Procedures included in critical care time:0 Procedures excluded from critical care time: 0
[2018-01-12 23:58] LABS: Basophils # 0.1 K/mcL (0.0-0.2); Basophils % 0.5 %; Eosinophils # 0.6 K/mcL (0.0-0.6); Eosinophils % 6.1 %; Hematocrit 40.3 % (37.5-50.1); Hemoglobin 12.6 g/dL (12.9-16.9); Immature Granulocytes % 0.2 % (0-4); Lymphocytes % 19.3 %; Mean Corpuscular HGB Conc 31.3 g/dL (31.6-35.5); Mean Corpuscular Hemoglobin 25.6 pg (28.0-33.3); Mean Corpuscular Volume 81.7 fL (83.0-100.0); Mean Platelet Volume 10.1 fL (9.4-12.4); Monocytes # 0.6 K/mcL (0.0-1.3); Monocytes % 6.3 %; Neutrophils # 6.9 K/mcL (1.6-8.9); Platelet Count 390 K/mcL (140-400); Red Blood Count 4.93 M/mcL (4.19-5.50); Red Cell Distribution Width 17.2 % (11.5-14.5); Segmented Neutrophils % 67.6 %
[2018-01-13 00:20] LABS: BUN/Creatinine Ratio 10 (6-26); Blood Urea Nitrogen 13 mg/dL (6-20); Calcium 9.1 mg/dL (8.6-10.3); Carbon Dioxide 22 mEq/L (23-29); Chloride 101 mEq/L (98-107); Glucose 175 mg/dL (70-105); Osmolality,Calculated 284 (280-300); Potassium 3.3 mEq/L (3.5-5.1); Sodium 135 mEq/L (136-145); eGFR For African Americans > 60 (> 60); eGFR For Non-African Americans > 60 (> 60)
[2018-01-13 00:23] LABS: Bilirubin,Urine Negative (Negative); Blood,Urine Large (Negative); Clarity,Urine Cloudy (Clear); Color,Urine Yellow (Yellow); Glucose,Urine (UA) Normal (Normal); Ketones,Urine Negative (Negative); Leukocyte Esterase,Urine Large (Negative); Nitrite,Urine Negative (Negative); Protein,Urine Trace mg/dL (Neg-Trace); Specific Gravity,Urine 1.015 (1.010-1.025); Urobilinogen,Urine Normal (Normal)
[2018-01-13 00:24] LABS: Bacteria,Urine None Seen per hpf (None-Few); Hyaline Casts,Urine None Seen per lpf (None-Few); RBC,Urine TNTC per hpf (0-3); Squamous Epithelial Cell,Urine Moderate per lpf (None-Few); WBC,Urine 50-100 per hpf (0-3)
[2018-01-13] MEDS: 0.9 % Sodium Chloride 1,000 ML IVC SCH ×2 (00:27→05:13)
[2018-01-13] MEDS ORDERED: Aspirin 325 MG TABLET PO ONE (00:29)
[2018-01-13] MEDS ORDERED: *HR* Heparin 5,000 UNIT/ML VIAL IVP ONE (00:53)
[2018-01-13] MEDS ORDERED: *HR* Heparin 5,000 UNIT/ML VIAL IVP PRN ×2 (00:53)
[2018-01-13] MEDS ORDERED: cefTRIAXone 2,000 MG in Water for inj. (sterile) 20 ML 20 ML IVPB ONE (01:00)
[2018-01-13] MEDS ORDERED: Heparin 25,000 UNIT/500 ML D5W 25,000 UNIT/500 ML BAG IVC SCH (01:00)
[2018-01-13] MEDS ORDERED: Ondansetron 4 MG/2 ML VIAL IVP ONE (01:01)
[2018-01-13] MEDS ORDERED: 0.9 % Sodium Chloride 1,000 ML IVC ONE (01:07)
[2018-01-13 01:09] LABS: INR 1.1
[2018-01-13] MEDS ORDERED: Ondansetron 4 MG/2 ML VIAL IVP PRN (02:12)
[2018-01-13] MEDS ORDERED: *HR* Promethazine 25 MG/ML VIAL IVP PRN (02:12)
[2018-01-13] MEDS ORDERED: Acetaminophen 325 MG TABLET PO PRN (02:12)
[2018-01-13] MEDS ORDERED: *HR* HYDROcodone/Acet 5/325 mg TABLET PO PRN (02:12)
[2018-01-13] MEDS ORDERED: Naloxone 0.4 MG/ML INJ IVP PRN (02:12)
--- NOTE | 2018-01-13 02:45 | Internal Med History&Physical ---
Date of Encounter: 01/13/18 Time of Encounter: 01:30 Assessment and Plan (1) Chest pain Current visit: Yes Status: Acute Admit the pt into Tele His troponin significantly elevated @ 10.2 will cont trending on trop He is CP free now Will cont ASA + Statin If BP allows will start him on low dose BB check FLP in AM Reviewed EKG - NSR, NO ST T changes, No acute ischemic changes started him on Heparin gtt will consult card in AM NPO for now Reviewed CXR - No acute infiltrates Qualifiers: Chest pain type: unspecified Qualified Code(s): R07.9 - Chest pain, unspecified (2) NSTEMI (non-ST elevated myocardial infarction) Current visit: Yes Status: Acute (3) Nausea and vomiting Current visit: Yes Status: Acute ?? gasto enteritis cont supportive and symptomatic care Qualifiers: Vomiting type: unspecified Vomiting Intractability: unspecified Qualified Code(s): R11.2 - Nausea with vomiting, unspecified (4) Diastolic CHF, chronic Current visit: Yes Status: Acute Not in exacerbation Will check 2 D Echo Reviewed Echo from 06/17 showed Preserved LVEF (5) UTI (urinary tract infection) Current visit: Yes Status: Acute UA slightly abnormal with too many WBC will cont empirical abx Rocephin f/u on blood cx, urine cx Qualifiers: Urinary tract infection type: site unspecified Hematuria presence: without hematuria Qualified Code(s): N39.0 - Urinary tract infection, site not specified (6) Decubitus ulcer of left thigh, stage 3 Current visit: No Status: Acute Seems to inf well controlled ESR and CRP trended down compare to last month cont local wound care will consult wound care team (7) History of urostomy Current visit: No Status: Acute no signs of obstruction no leakage noticed (8) Ulcer of left heel Current visit: No Status: Acute Qualifiers: Non-pressure ulcer stage: limited to breakdown of skin Qualified Code(s): L97.421 - Non-pressure chronic ulcer of left heel and midfoot limited to breakdown of skin (9) Essential hypertension Current visit: No Status: Chronic slightly on lower side Hold BP meds for now (10) GERD (gastroesophageal reflux disease) Current visit: No Status: Chronic Qualifiers: Esophagitis presence: esophagitis presence not specified Qualified Code(s) : K21.9 - Gastro-esophageal reflux disease without esophagitis (11) Hypothyroidism Current visit: No Status: Chronic Qualifiers: Hypothyroidism type: unspecified Qualified Code(s): E03.9 - Hypothyroidism , unspecified (12) Type 2 diabetes mellitus Current visit: No Status: Chronic will place him on ISS Qualifiers: Diabetes mellitus complication status: with unspecified complications Diabetes mellitus ferry terminal agent insulin use: without ferry terminal agent use Qualified Code( s): E11.8 - Type 2 diabetes mellitus with unspecified complications Internal Medicine - H&P: HPI Chief complaint: Flu like symptoms..Chest pain Admitted From: Emergency Dept Plans for Post Hospital Care: Home History of present illness: Mr. Leone is a 48 year old male with known past medical history of Spina Bifda, type II diabetes mellitus , asthma,bladder cancer, obstructive uropathy s/p Urosotmy, Diastolic CHF, CVA, hyperlipidemia, hypertension, and hypothyroidism who does how chronic pressure ulcer over the left heel as well as left thigh posteriorly who was recently discharged on 12/16/17 from this hospital after treating his left leg cellulites, now he was brought into the ER by family stating that he has been feelin weak , lethargic and flu like symptoms from last 2 days. He does c/o chest pain y/d located substernally, non radiating, 61/ 0 in severity lasted for few minutes. He denied any active CP now. However he does c/po generalized body aches. He also have nausea / vomiting and diarrhea. Here in the ER his Trop significantly elevated @ 1.02 Past Med Surg Social Fam HX - Past Medical History Medical history: asthma, cancer, CHF, CVA, hyperlipidemia, hypertension, thyroid disease, other Psychiatric history: depression - Past Surgical History Surgical History: appendectomy, orthopedic, other (Hardware in the BLE), vasectomy, other (Cystectomy) - Social History Smoking Status: Never smoker Smokeless Tobacco Status: No Alcohol use: none Drug use: none - Family History Mother Family Member Ethnicity: Non- Living Status: Still Living Hx Family Cardiac Disorders: Yes (HTN) Hx Family Endocrine Disorder: Yes (DM) Hx Family Neurologic Disorders: Yes (Dementia) Sister Family Member Ethnicity: Non- Living Status: Still Living Hx Family Cardiac Disorders: No Hx Family Respiratory Disorders: Yes Hx Family Cancer: No Hx Family GI Disorders: Yes Hx Family Endocrine Disorder: Yes Hx Family Neuromuscular Disorders: Yes Hx Family Neurologic Disorders: Yes Brother Family Member Ethnicity: Non- Living Status: Still Living Hx Family Cardiac Disorders: Yes (HTN) Father Family Member Ethnicity: Non- Living Status: Hx Family Cardiac Disorders: Yes (CHF, HTN) Hx Family Respiratory Disorders: Yes (Asthma, emphysema) Hx Family Cancer: Yes (Lung) Hx Family GI Disorders: No Hx Family Endocrine Disorder: Yes Hx Family Neuromuscular Disorders: No Hx Family Neurologic Disorders: No Hx Family HEENT Disorders: No Hx Family Autoimmune Disorders: No Internal Medicine - H&P: Meds Cholecalciferol (Vitamin D3) [Vitamin D3] 5,000 unit PO DAILY 11/12/16 [History] Fluticasone Propionate [Flovent Hfa] 1 - 2 puff IH BID 11/12/16 [History] Levothyroxine [Synthroid] 200 mcg PO DAILY 11/12/16 [History] Lactobacillus Acidophilus/Fos [Acidophilus Probiotic Tablet] 1 cap PO DAILY 06/17 [History] Loratadine [Claritin] 10 mg PO DAILY 03/08/17 [History] Multivitamin [One Daily Multivitamin] 1 tab PO DAILY 03/08/17 [History] Enalapril Maleate [Vasotec] 10 mg PO DAILY 03/23/17 [History] Omeprazole [PriLOSEC] 20 mg PO DAILY 08/25/17 [History] Furosemide [Lasix] 40 mg PO DAILY 7 Days #7 tablet 08/30/17 [Rx] Atorvastatin [Lipitor] 40 mg PO HS 11/14/17 [History] 3 Allergy/AdvReac Type Severity Reaction Status Date / Time adhesive Allergy Blister Verified 12/10/17 21:23 Amoxicillin Allergy Hives Verified 12/10/17 21:23 Oxaprozin [From Daypro] AdvReac Diarrhea Verified 12/10/17 21:23 All Systems PM: A 10-system review of systems was performed and is negative for pertinent findings except as documented above in the HPI. Review of systems: All the systems are reviewed everything is benign except the systems and symptoms I mentioned in the history of present illness - Constitutional Vitals: Temp Pulse Resp BP Pulse Ox 98.9 F 101 20 94/75 97 01/12/18 22:44 01/13/18 01:59 01/13/18 01:59 01/13/18 01:59 01/13/18 01:59 General appearance: Present: cooperative, A&O X 3, morbidly obese, answers questions appropriately - Head Head exam: Present: atraumatic, normal inspection - Neck Neck exam general surgery: Present: supple - Respiratory Respiratory exam: Present: decreased breath sounds, wheezes (mild). Absent: rales, respiratory distress, rhonchi - Cardiovascular Cardiovascular exam: Present: RRR, +S1, +S2. Absent: systolic murmur, tachycardia - GI/Abdominal GI/Abdominal exam: Present: normal bowel sounds, soft. Absent: rigid, tenderness Additional comments: Urostomy bag +..No signs of cellulites around urostomy site - Extremities Exam Extremities exam: Present: pedal edema (2+). Absent: calf tenderness, tenderness Additional comments: Chronic healed pressure ulcer over Left heel.. No signs of active infection now. No open wound, no discharge noticed He does have large ulcer with serous discharge over Left posterior thigh.. Which seems to be better now as per pt. - Back Exam Back exam: Absent: CVA tenderness (L), CVA tenderness (R) - Neurological Exam Neurological exam: Present: alert, CN II-XII intact, oriented X3. Absent: speech deficit - Psychiatric Psychiatric exam: Present: normal affect, normal mood - Skin Skin exam: Absent: rash Internal Med - H&P Results - Labs CBC & Chem 7: 01/12/18 23:46 01/12/18 23:46
[2018-01-13 03:48] LABS: Basophils # 0.1 K/mcL (0.0-0.2); Basophils % 0.8 %; Eosinophils # 0.7 K/mcL (0.0-0.6); Eosinophils % 6.4 %; Hematocrit 36.1 % (37.5-50.1); Hemoglobin 11.2 g/dL (12.9-16.9); Immature Granulocytes % 0.1 % (0-4); Lymphocytes # 2.5 K/mcL (0.6-4.6); Mean Corpuscular Hemoglobin 25.6 pg (28.0-33.3); Mean Corpuscular Volume 82.6 fL (83.0-100.0); Mean Platelet Volume 10.7 fL (9.4-12.4); Monocytes # 0.7 K/mcL (0.0-1.3); Monocytes % 6.8 %; Neutrophils # 6.4 K/mcL (1.6-8.9); Platelet Count 305 K/mcL (140-400); Red Blood Count 4.37 M/mcL (4.19-5.50); Red Cell Distribution Width 17.2 % (11.5-14.5); Segmented Neutrophils % 61.9 %
[2018-01-13 04:13] LABS: Alanine Aminotransferase 17 Units/L (7-52); Albumin 3.7 g/dL (3.5-5.7); Albumin/Globulin Ratio 1.1 (1.1-2.2); Alkaline Phosphatase 70 Units/L (34-104); Aspartate Amino Transferase 16 Units/L (13-39); BUN/Creatinine Ratio 12 (6-26); Bilirubin,Total 0.4 mg/dL (0.3-1.0); Blood Urea Nitrogen 13 mg/dL (6-20); Calcium 8.5 mg/dL (8.6-10.3); Carbon Dioxide 21 mEq/L (23-29); Chloride 106 mEq/L (98-107); Chol/HDL Ratio 3.8 (0-4.9); Cholesterol 152 mg/dL (< 200); Globulin 3.4 g/dL (2.4-3.5); Glucose 96 mg/dL (70-105); HDL Cholesterol 40 mg/dL (40-59); LDL Cholesterol,Calculated 89 mg/dL (0-99); Magnesium 1.3 mg/dL (1.6-2.6); Osmolality,Calculated 284 (280-300); Potassium 3.4 mEq/L (3.5-5.1); Sodium 137 mEq/L (136-145); Total Protein 7.1 g/dL (6.4-8.9); Triglycerides 116 mg/dL (< 150); eGFR For African Americans > 60 (> 60); eGFR For Non-African Americans > 60 (> 60)
[2018-01-13] MEDS ORDERED: 0.9 % Sodium Chloride 1,000 ML ONE ×3 (04:48→18:17)
[2018-01-13 07:08] LABS: Adenovirus Not Detected (Not Detect); Bordetella Pertussis Not Detected (Not Detect); Chlamydophila pneumoniae Not Detected (Not Detect); Coronavirus 229E Not Detected (Not Detect); Coronavirus HKU1 Not Detected (Not Detect); Coronavirus NL63 Not Detected (Not Detect); Coronavirus OC43 Not Detected (Not Detect); Human Metapneumovirus Not Detected (Not Detect); Human Rhinovirus/Enterovirus Not Detected (Not Detect); Influenza A Subtype 2009 H1 Not Detected (Not Detect); Influenza A Untypeable Not Detected (Not Detect); Influenza B Not Detected (Not Detect); Mycoplasma pneumoniae Not Detected (Not Detect); Parainfluenza Virus 1 Not Detected (Not Detect); Parainfluenza Virus 2 Not Detected (Not Detect); Parainfluenza Virus 3 Not Detected (Not Detect); Parainfluenza Virus 4 Not Detected (Not Detect); Respiratory Syncytial Virus Not Detected (Not Detect)
[2018-01-13] MEDS: Multivit/Ca/Min/Fe/FA 1 TAB TABLET PO SCH (08:13)
[2018-01-13] MEDS: Lactobacillus 1 EACH CAP.SPRINK PO SCH (08:13)
[2018-01-13] MEDS: Cholecalciferol (D-3) 1,000 UNIT TABLET PO SCH (08:13)
[2018-01-13] MEDS: Loratadine 10 MG TABLET PO SCH (08:13)
[2018-01-13] MEDS: Beclomethasone 80mcg MDI IH SCH ×2 (09:23→20:30)
--- NOTE | 2018-01-13 10:57 | Event Note ---
Date of Encounter: 01/13/18 Time of Encounter: 10:57 Patient is awake and alert. No new complaints at this time. On IV heparin. Chest pain has improved. Cardiology consultation. We will await recommendations.
--- NOTE | 2018-01-13 13:06 | Cardiology Consult Note ---
<Rosalio Boyd - Last Filed: 01/13/18 15:04> Date of Encounter: 01/13/18 Time of Encounter: 13:00 Assessment and Plan (1) NSTEMI (non-ST elevated myocardial infarction) Current Visit: Yes Status: Acute Per Cardiology: Peak trop 1.23, CP free now. On aspirin, statin, BRIAN inhibitor, heparin drip. Will add low-dose beta abiola. Discussed and reviewed with Dr. Quan and Dr. French, plan for left heart catheterization today. Patient and sister verbalize understanding and agreed with plan. All questions answered. Further recs after echo and catheterization. CR c/s placed. (2) Chest pain Current Visit: Yes Status: Acute Per Cardiology: Atypical CP at rest occurring in setting of N/V/Cough. However, Trop elevated 1.23. Qualifiers: Chest pain type: unspecified Qualified Code(s): R07.9 - Chest pain, unspecified (3) UTI (urinary tract infection) Current Visit: Yes Status: Acute Per Cardiology: History of urostomy in setting of bladder cancer at [facility]. Management per primary service. Reports wounds to abdominal area from tape adhesive from urostomy bag with bloody cannulation at times. Denies any blood in his urine. Qualifiers: Urinary tract infection type: site unspecified Hematuria presence: without hematuria Qualified Code(s): N39.0 - Urinary tract infection, site not specified Discussion w patient/family: The assessment and plan as outlined above was discussed with the patient and/or family members who expressed understanding and agreement. All questions were answered. Thank you for involving us in the care of your patient. Please call with any questions. History of Present Illness Consult date: 01/13/18 Requesting physician: Lane Vidal Consult reason: CP Chief complaint: CP History of present illness: Previous records reviewed: "Mr. Leone is a 48 year old male with known past medical history of Spina Bifida , type II diabetes mellitus , asthma,bladder cancer, obstructive uropathy s/p Urosotmy, Diastolic CHF, CVA, hyperlipidemia, hypertension, and hypothyroidism who does how chronic pressure ulcer over the left heel as well as left thigh posteriorly who was recently discharged on 12/16/17 from this hospital after treating his left leg cellulites, now he was brought into the ER by family stating that he has been feelin weak , lethargic and flu like symptoms from last 2 days. He does c/o chest pain y/d located substernally, non radiating, 61/ 0 in severity lasted for few minutes. He denied any active CP now. However he does c/po generalized body aches. He also have nausea / vomiting and diarrhea. Here in the ER his Trop significantly elevated @ 1.02." Cardiology c/s for Cp and elevated trop. Patient seen with sister at bedside. He reports development of nausea, cough, midsternal chest and throat burning, vomiting over the past few days. Reports chest pain symptoms with coughing. Patient reports another episode of rapid heart rate with diaphoresis and chest pain as well. Currently chest pain-free. Denies any previous history of CAD, reports echo a few years ago showing CHF and past negative stress test. He denies any nicotine abuse history. Reports mother with stenting in her 40s and father stenting in his 60s. He reports he is "prediabetic". He does report limited mobility due to spinal bifida. Additionally, he does have wound care following on a regular basis for left leg wound and wounds around his urostomy site. He reports history of bladder cancer with bladder removal at [facility]. He does not follow with oncology. Did not receive any radiation or chemotherapy. To his knowledge she is cancer free. He does report some blood in his urostomy bag from his wounds, denies any bleeding in his urine Past Med Surg Social Fam HX - Past Medical History Attestation: Yes The following information was validated with the patient. Source: patient, old records reviewed, obtained from family Medical history: asthma, cancer, CHF, CVA, hyperlipidemia, hypertension, thyroid disease, other Psychiatric history: depression - Past Surgical History Surgical History: appendectomy, orthopedic, other (Hardware in the BLE), vasectomy, other (Cystectomy) - Social History Smoking Status: Never smoker Smokeless Tobacco Status: No Alcohol use: none Drug use: none - Family History Mother Family Member Ethnicity: Non- Living Status: Still Living Hx Family Cardiac Disorders: Yes (HTN) Hx Family Endocrine Disorder: Yes (DM) Hx Family Neurologic Disorders: Yes (Dementia) Sister Family Member Ethnicity: Non- Living Status: Still Living Hx Family Cardiac Disorders: No Hx Family Respiratory Disorders: Yes Hx Family Cancer: No Hx Family GI Disorders: Yes Hx Family Endocrine Disorder: Yes Hx Family Neuromuscular Disorders: Yes Hx Family Neurologic Disorders: Yes Brother Family Member Ethnicity: Non- Living Status: Still Living Hx Family Cardiac Disorders: Yes (HTN) Father Family Member Ethnicity: Non- Living Status: Hx Family Cardiac Disorders: Yes (CHF, HTN) Hx Family Respiratory Disorders: Yes (Asthma, emphysema) Hx Family Cancer: Yes (Lung) Hx Family GI Disorders: No Hx Family Endocrine Disorder: Yes Hx Family Neuromuscular Disorders: No Hx Family Neurologic Disorders: No Hx Family HEENT Disorders: No Hx Family Autoimmune Disorders: No Medications and Allergies Cholecalciferol (Vitamin D3) [Vitamin D3] 5,000 unit PO DAILY 11/12/16 [History] Fluticasone Propionate [Flovent Hfa] 1 - 2 puff IH BID 11/12/16 [History] Levothyroxine [Synthroid] 200 mcg PO DAILY 11/12/16 [History] Lactobacillus Acidophilus/Fos [Acidophilus Probiotic Tablet] 1 cap PO DAILY 06/17 [History] Loratadine [Claritin] 10 mg PO DAILY 03/08/17 [History] Multivitamin [One Daily Multivitamin] 1 tab PO DAILY 03/08/17 [History] Enalapril Maleate [Vasotec] 10 mg PO DAILY 03/23/17 [History] Omeprazole [PriLOSEC] 20 mg PO DAILY 08/25/17 [History] Furosemide [Lasix] 40 mg PO DAILY 7 Days #7 tablet 08/30/17 [Rx] Atorvastatin [Lipitor] 40 mg PO HS 11/14/17 [History] 3 Allergy/AdvReac Type Severity Reaction Status Date / Time adhesive Allergy Blister Verified 12/10/17 21:23 Amoxicillin Allergy Hives Verified 12/10/17 21:23 Oxaprozin [From Daypro] AdvReac Diarrhea Verified 12/10/17 21:23 All Systems Review: A 10-system review of systems was performed and is negative for pertinent findings except as documented above in the HPI. - Constitutional Constitutional: chills, fatigue, fever(s) - Cardiovascular Cardiovascular: as per HPI, chest pain at rest, rapid heart rate - Respiratory Respiratory: cough - Gastrointestinal Gastrointestinal: other (Reports some recent abdominal distention) Physical Examination Vital Signs, Last 4 Hours Temp Pulse Resp BP Pulse Ox 01/13/18 11:32 98.1 F 87 19 129/80 01/13/18 09:25 16 99 General: Conversant, No Apparent Distress HEENT: Atraumatic, Normocephaly, Mucus Membranes Moist Neck: No JVD, Normal carotid pulses Cardiac: Reg Rate and Rhythm, Normal S1 and S2, No Murmur Lungs: Normal Breath Sounds, No Wheeze, Rales, Rhonchi Neuro: Alert and responsive, No focal deficits noted Abdomen: Soft, Non-Tender, Other (Obese) Skin: No rashes noted on visualized skin Musculoskeletal: No Chest Wall Tenderness Extremities: No Clubbing, No Cyanosis, No Edema, Normal Pulses Other: Has urostomy bag, dressings applied to wounds from belt and tape. Results 01/13/18 03:38 01/13/18 03:38 Lab Results Laboratory Tests 01/12/18 01/12/18 01/12/18 23:46 23:46 23:46 INR 1.1 AST ALT Troponin I 1.02 H* B-Natriuretic Peptide 12 01/13/18 01/13/18 01/13/18 03:38 03:38 10:49 INR AST 16 ALT 17 Troponin I 1.11 H* 1.23 H* B-Natriuretic Peptide ITS Impressions Chest X-Ray 01/12/18 23:36 IMPRESSION: No acute cardiopulmonary abnormality. D/ / Severiano Pelayo / Severiano Pelayo Interpreting Provider: Severiano Pelayo Active Medications Acetaminophen (Tylenol) 650 mg PO Q6HR PRN PRN Reason: Mild Pain/Fever Stop: 07/15/18 02:13 Hydrocodone Bitart/Acetaminophen ([place] 5-325 Mg) 1 tab PO Q6HR PRN PRN Reason: Moderate Pain Stop: 07/15/18 02:13 Atorvastatin Calcium (Lipitor) 40 mg PO HS ARTURO Stop: 07/15/18 21:01 Beclomethasone Dipropionate (Qvar 80 Mcg) 2 puff IH BIDR ARTURO Stop: 07/15/18 10:01 Last Admin: 01/13/18 09:23 Dose: 2 puff Heparin Sodium (Porcine) (Heparin) 4,000 unit IVP Q6HR PRN PRN Reason: SEE COMMENTS Stop: 07/15/18 00:54 Heparin Sodium (Porcine) (Heparin) 2,000 unit IVP Q6H PRN PRN Reason: SEE COMMENTS Stop: 07/15/18 00:54 Heparin Sodium/Dextrose (Heparin 25,000 Unit/500 Ml D5w) 25,000 unit in 500 mls @ 19.958 mls/hr IVC .Q24H ARTURO; 10 UNIT/KG/HR PRN Reason: Protocol Stop: 07/15/18 01:01 Last Titration: 01/13/18 08:15 Dose: 12 unit/kg/hr, 23.95 mls/hr Ceftriaxone Sodium 1,000 mg/ (Sterile Water) 10 mls @ 300 mls/hr IVP Q24H ARTURO Stop: 07/16/18 02:01 Lactobacillus Acidophilus/Rhamnosus (Culturelle) 1 each PO DAILY ARTURO Stop: 07/15/18 09:01 Last Admin: 01/13/18 08:13 Dose: 1 each Levothyroxine Sodium (Synthroid) 200 mcg PO 0630 ARTURO Stop: 07/15/18 06:31 Last Admin: 01/13/18 05:12 Dose: 200 mcg Lisinopril (Zestril) 10 mg PO DAILY ARTURO Stop: 07/15/18 09:01 Last Admin: 01/13/18 08:13 Dose: 10 mg Loratadine (Claritin) 10 mg PO DAILY ARTURO PRN Reason: Protocol Stop: 07/15/18 09:01 Last Admin: 01/13/18 08:13 Dose: 10 mg Multivitamins/Calcium (Thera M Plus) 1 tab PO DAILY ARTURO Stop: 07/15/18 09:01 Last Admin: 01/13/18 08:13 Dose: 1 tab Naloxone HCl (Narcan) 0.4 mg IVP Q2MIN PRN PRN Reason: SEE COMMENTS Stop: 07/15/18 02:13 Omeprazole (Prilosec) 20 mg PO 0630 ARTURO PRN Reason: Protocol Stop: 07/15/18 06:31 Last Admin: 01/13/18 05:12 Dose: 20 mg Ondansetron HCl (Zofran) 4 mg IVP Q6HR PRN PRN Reason: Nausea And Vomiting Stop: 07/15/18 02:13 Promethazine HCl (Phenergan) 12.5 mg IVP Q6HR PRN PRN Reason: Nausea And Vomiting Stop: 07/15/18 02:13 Vitamin D (Vitamin D) 1,000 unit PO DAILY ARTURO Stop: 07/15/18 09:01 Last Admin: 01/13/18 08:13 Dose: 1,000 unit ECHO 2017: Impressions: Normal LV systolic function, LVEF 60%. Indeterminate diastolic function due to sinus tachycardia with E/A fusion. Normal right ventricular size and function. No significant valvular dysfunction. No evidence of pulmonary hypertension. Left Ventricular Wall Motion: Rest Echo Findings All wall segments showed normal motion. - Imaging and Cardiology Echo: pending, report reviewed Cardiac cath: pending - EKG Interpretation EKG results cardiology: personally reviewed (SR 90's) Consult Discharge Plan - Plan Referrals: [facility] [Other] (Office will call you with follow up appointment) Maria Elena nA MD [Primary Care Provider] - 01/17/18 1:45 pm <Veena Quan - Last Filed: 01/13/18 17:54> Date of Encounter: 01/13/18 - Attending Attestation I examined this patient and my medical decision-making was reviewed with the MANAGER BASKETBALL. I agree with the documented findings, disposition and treatment plan as described. Mr. Leone presented with multiple complaints including chest pain. Found to have elevated troponin - now at 1.23. Has risk factors for CAD - DM, HTN, HPL. Recommend patient proceed with LHC for NSTEMI. The R/B/A of the procedure were discussed with the patient and family at bedside. Renal function normal. Mild chronic anemia, stable. Patient expressed understanding and verbalized agreement to proceed with LHC. Denies a history of bleeding requiring blood transfusions. Has wound care for chronic leg wound as well as urostomy. Has no upcoming elective procedures. Assessment and Plan Discussion w patient/family: The assessment and plan as outlined above was discussed with the patient and/or family members who expressed understanding and agreement. All questions were answered. Thank you for involving us in the care of your patient. Please call with any questions. History of Present Illness History of present illness: Mr. Leone is a 48 year old male All Systems Review: A 10-system review of systems was performed and is negative for pertinent findings except as documented above in the HPI. Physical Examination Vital Signs, Last 4 Hours Temp Pulse Resp BP Pulse Ox 01/13/18 15:30 97.8 F 84 16 112/71 95 Results 01/13/18 03:38 01/13/18 03:38 Lab Results 01/13/18 01/13/18 01/13/18 03:38 03:38 03:38 WBC 10.3 Hgb 11.2 L Hct 36.1 L Plt Count 305 APTT Sodium 137 Potassium 3.4 L Chloride 106 Carbon Dioxide 21 L BUN 13 Creatinine 1.07 Glucose 96 Calcium 8.5 L Magnesium 1.3 L Total Bilirubin 0.4 AST 16 ALT 17 Alkaline Phosphatase 70 Troponin I 1.11 H* 01/13/18 01/13/18 01/13/18 06:52 10:49 15:24 WBC Hgb Hct Plt Count APTT 48.3 H D 54.2 H Sodium Potassium Chloride Carbon Dioxide BUN Creatinine Glucose Calcium Magnesium Total Bilirubin AST ALT Alkaline Phosphatase Troponin I 1.23 H*
[2018-01-13] MEDS ORDERED: Perflutren Lipid Microsphere 1.3 ML in 0.9 % Sodium Chloride 8.7 ML IVP ONE (13:29)
--- NOTE | 2018-01-13 17:47 | Electrocardiograph Report ---
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
[2018-01-13] MEDS ORDERED: *HR* Heparin 10,000 UNIT/10 ML VIAL ONE (17:59)
[2018-01-13] MEDS ORDERED: ISOVUE-370 200 ML INFUS..BTL IV ONE (17:59)
[2018-01-13] MEDS ORDERED: Heparin 1,000 UNITS/500 mL 500 ML ONE (17:59)
[2018-01-13] MEDS ORDERED: Nitroglycerin 1,000 MCG/10 ML VIAL IV ONE (17:59)
[2018-01-13] MEDS ORDERED: *HR* Midazolam HCl 2 MG/2 ML VIAL ONE (18:16)
[2018-01-13] MEDS ORDERED: *HR* FentaNYL (PF) 100 MCG/2 ML VIAL ONE (18:17)
--- NOTE | 2018-01-13 18:50 | Pre-Sedation Evaluation ---
Pre-sedation evaluation - Pre-sedation checklist Date of procedure: 01/13/18 Procedure: [facility] Recent Vitals: Last Vital Signs Temp 97.8 F 01/13/18 15:30 Pulse 84 01/13/18 15:30 Resp 16 01/13/18 15:30 BP 112/71 01/13/18 15:30 Pulse Ox 95 01/13/18 15:30 H&P (including ROS) documented in medical record: Yes Previous reaction to sedatives/anesthetics: No Dietary Status: NPO after Midnight Dentition: poor dentition ASA Classification *see protocol: CLASS II-Mild systemic disease Plan of Care: Pt appropriate candidate for procedure/moderate/conscious sedation
--- NOTE | 2018-01-13 19:04 | Invasive Diagnostic Lab Proc ---
Name: Sammy Leone Date of Study: 01/13/2018 Date: 1970 Ht: 68.1in Medical Record#: [id number] Age: 48 Wt: 278.22lb Gender: Male BSA: 2.35 Order #: [id number] BMI: 42.17 Physicians Procedure Physician: Freddy French MD Referring MD: Referring MD: Staff Name Position Time In Dee Pozo RN Monitor 06:24 PM Chon Peterson RN Surgical Instrument Mechanic 06:24 PM Elizabeth Babcock RT Scrub 06:24 PM Steph Faye RN Surgical Instrument Mechanic 06:52 PM Indications Indication Non-Stemi Procedures Performed Procedure L HRT ARTERY/VENTRICLE ANGIO Pre-Procedure Checklist Informed consent is complete signed and on chart. H&P is on chart. ID band is on and ID verified with patient. Patient NPO for procedure The procedure was described for the patient and questions were answered. ECG is on chart. Plan of Care Patient will tolerate the procedure without complications. Adequate level of comfort will be maintained. Hemodynamics will remain stable Patient will recover from procedure without complications. Respiratory function will be maintained. Cardiac rhythm will remain stable. Patient temperature will be maintained. Patient and/or family have verbalized understanding of the procedure. Patient Education Chief Complaint/Reason for Test: Cardiac Cath Developmental Category: Adult (18-64 years) Developmentally Appropriate for Age: Yes Learning Barriers: None Education Needs: Procedure Education Method: Verbal Information Taught: Cardiac Cath Educational Evaluation: Able to repeat information Intravenous Access Time IV Size Location DC'd Fluid/Drip Rate Units RN 0.9NaCl ml/hr Allergies Amoxicillin adhesive DAYPRO,OXAPROZIN DAYPRO Oxaprozin Vital Signs Time BP (mmHg) HR (bpm) O2 Sat. RR (bpm) LOC 06:26 PM / % 5 = Fully awake and oriented or at pre-proc level 06:26 PM / % 5 = Fully awake and oriented or at pre-proc level 06:25 PM 129 / 70 87 100 % 15 06:30 PM 138 / 70 93 100 % 19 06:35 PM 129 / 75 93 100 % 27 06:40 PM 126 / 78 86 100 % 24 06:45 PM 123 / 70 86 100 % Procedural Medications Time Medication Dose Units Method Given By 06:25 PM Oxygen 2 L/min nasal cannula Steph Faye RN 06:26 PM Versed 2 mg Intravenous Steph Faye RN 06:26 PM Fentanyl 50 mcg Intravenous Steph Faye RN 06:26 PM Ancef 1 gram Intravenous Steph Faye RN 06:29 PM Lidocaine 2% 16 ml Subcutaneous Freddy French MD 06:30 PM Lidocaine 2% 3 ml Subcutaneous Freddy French MD ASA Classification: CLASS II- Mild systemic disease (i.e. well-controlled diabetes, hypertension, asthma, cigarette smoking) Diogenes Score Preprocedure Postprocedure Activity 2- Moves 4 extremities sustained head lift Activity 2- Moves 4 extremities sustained head lift Circulation 2- SBP +/= 20 points of pre-anesthetic level Circulation 2- SBP +/= 20 points of pre-anesthetic level Consciousness 2- Awake and alert oriented x 3 Consciousness 2- Awake and alert oriented x 3 O2 Saturation 2- Able to maintain O2 satruation of 92% on room air O2 Saturation 2- Able to maintain O2 satruation of 92% on room air Respiratory 2- Able to deep breathe and cough well Respiratory 2- Able to deep breathe and cough well Total Score 10 Total Score 10 Contrast Agent: Isovue Diagnostic Contrast: 79 ml Total Contrast: 79 ml Fluoro Dose: 464 mGy Procedure Log Time Note Enter By 06:24 PM Steph Faye RN Position: Surgical Instrument Mechanic Time in: 18:24 [facility] 06:24 PM Pt arrived to [place] 2 at 18:24 [facility] 06:24 PM Dee Pozo RN Position: Monitor Time in: 18:24 [facility] 06:24 PM Chon Peterson RN Position: Surgical Instrument Mechanic Time in: 18:24 [facility] 06:24 PM Elizabeth Babcock Position: Scrub Time in: 18:24 [facility] 06:24 PM Patient charges- Angio tray pack, Navilyst 3mm J, Pulse Oximetry and ACIST tubing and transducer [facility] 06:24 PM Case Delayed No [facility] 06:24 PM Vitals capture started with the following parameters, Patient=Adult, Interval=5 min, Initial Ptmwxyke=250 mmHg, Deflation Rate=5 mmHg, Cuff placed on Right Arm 06:25 PM Hair removed from procedure site in procedure lab using clippers. Bilateral groin prepped with Chloraprep by Steph Faye RN, then patient was draped. Skin intact. [facility] : PM Physicmelvin paged/called 18:25. [facility] : PM Physican responded and notified patient is ready 18:25 [facility] : PM Physician arrived 18:25 [facility] : PM Meet and greet completed [facility] : PM Sign in performed according to hospital policy. [facility] : PM [facility] : PM Time: 18:25 Oxygen on at 2 L/min per nasal cannula by Steph [facility]aye RN [facility] PM HR=87 bpm, DYRP=720/70 mmhg, DgM3=331.0 %, Resp=15 B/min : PM Recorded ECG: HR=91 Condition=Condition 1 : PM Time: 18:26 Patient comfortable and pain free: Yes [facility] PM Time: 18:26LOC: 5 = Fully awake and oriented or at pre-proc level [facility] PM Time: 18:26 Versed 2 mg Intravenous Given by [facility] RN [facility] PM Time: 18:26 Fentanyl 50 mcg Intravenous Given by Ste[facility]aye RN [facility] PM Time: 18:26 Ancef 1 gram Intravenous Given by [facility]: PM Clinical Presentation: Non-STEMI [facility] 06:28 PM Pt has erythema to groin prior to procedure with foul odor per Steph Faye RN. [facility] Time out performed according to hospital policy [facility] PM Time: 18:29 16 ml Lidocaine 2% to right groin Subcutaneous Given by MD phu [facility] :29 PM Pressure channel 1 zeroed. 06:30 PM Micro-Introducer Kit utilized for sheath placement [facility] :30 PM Time: 18:30 3 ml Lidocaine 2% to right groin Subcutaneous Given by MD kiara Schmidt 06:30 PM HR=93 bpm, JLCW=270/70 mmhg, NjZ6=167.0 %, Resp=19 B/min 06:31 PM Access obtained by percutaneous puncture. 6Fr 10cm Terumo Bethesda sheath placed in right Femoral artery. [id number] jcallihan 06:31 PM 0.035 145cm Navilyst 3mmJ wire [id number] jcallihan 06:31 PM 5Fr FR 4 catheter inserted over the wire DN jcallihan 06:31 PM Wire removed jcallihan 06:32 PM Recorded Pressure: Ao, HR=81, Condition=Condition 1 (Aorta) Ao 110/66/98 06:32 PM RCA angiography performed in multiple views. jcallihan 06:33 PM Catheter removed jcallihan 06:33 PM 5Fr FL 4 catheter inserted over the wire DN jcallihan 06:34 PM Recorded Pressure: Ao, HR=94, Condition=Condition 1 (Aorta) Ao 103/70/85 06:35 PM LCA angiography performed in multiple views. jcallihan 06:35 PM HR=93 bpm, AGTO=759/75 mmhg, YwY8=032.0 %, Resp=27 B/min 06:39 PM Catheter removed jcallihan 06:40 PM 5Fr Pigtail catheter inserted over the wire [facility] jcallihan 06:40 PM Catheter selectively placed in left ventricle jcallihan 06:40 PM Recorded Pressure: LV, HR=60, Condition=Condition 1 (Left Ventricle) LV 113/23/23 06:40 PM HR=86 bpm, WSVB=647/78 mmhg, EuH7=058.0 %, Resp=24 B/min 06:40 PM Recorded Pressure: LV, Ao, HR=90, Condition=Condition 1 (Left Ventricle) LV 114/19/23, (Aorta) Ao 105/71/89 06:41 PM Time: 18:26LOC: 5 = Fully awake and oriented or at pre-proc level jcallihan 06:41 PM Time: 18:26 Patient comfortable and pain free: Yes jcallihan 06:41 PM Catheter removed jcallihan 06:42 PM Procedure completed at 18:42 jcallihan 06:42 PM Sign out completed: Radiation Dose 463.90 mGy Fluoro Time: 2.1 Isovue 370 - 200ml contrast 79 ml given by Freddy French MD. Complications: NoneCardiac Rehab Consult needed: NoConfirmed administered medications: Yes jcallihan 06:42 PM Isovue 370 - 200ml,1 Bottle(s) used. [email or web address] 06:43 PM Arterial sheath pulled, Mynx closure device used and was Successful [id number] S/N. jcallihan 06:43 PM Estimated Blood Loss: less than 20cc jcallihan 06:44 PM Post ECG NSR jcallihan 06:44 PM Post Blood Pressure 126/78 jcallihan 06:44 PM Information taught Cardiac Cath jcallihan 06:44 PM Education needs Procedure, Plan of Care, Disease Process, and Obtaining further treatment jcallihan 06:44 PM Learning barriers :None jcallihan 06:44 PM Education Methods Verbal jcallihan 06:44 PM Education evaluation Able to repeat information jcallihan 06:44 PM Site status No bleeding/hematoma - Rt Groin as reported by Elizabeth Babcock RT at 18:44 jcallihan 06:44 PM Opsite applied jcallihan 06:44 PM Plavix, Effient or Brilinta given No jcallihan 06:44 PM Delay to floor No jcallihan 06:45 PM Complications: None jcallihan 06:45 PM Fluoro Time: 2.1 jcallihan 06:45 PM Radiation Dose 463.90 mGy jcallihan 06:45 PM HR=86 bpm, ATKZ=222/70 mmhg, DeQ2=402.0 % 06:46 PM Family placed in consult room. jcallihan 06:47 PM Coronary Dominance: Co-dominant jcallihan 06:47 PM Lesion found in LMCA. Pre Stenosis: 20 Pre CHARLES Flow: [email or web address] 06:47 PM Lesion found in Distal LAD. Pre Stenosis: 40 Pre CHARLES Flow: jcallihan 06:48 PM Left Main Coronary Artery with 20% stenosis jcallihan 06:48 PM Mid/Distal Left Anterior Descending Coronary Artery and diagonal branches with 40% stenosis. If graft is supplying this area, 0 % stenosis jcallihan 06:54 PM Patient out of room: 18:54 jcallihan 06:54 PM Report given to Donna MORFIN Pt taken to Room #02. 18:54 jcallihan 06:55 PM ASA Class CLASS II- Mild systemic disease (i.e. well-controlled diabetes, hypertension, asthma, cigarette smoking) jcallihan Complications Complication None Hemodynamics Pressures Site Systolic/A Wave Diastolic/V Wave Mean AO 110 66 98 AO 103 70 85 LV 113 23 23 LV 114 19 23 AO 105 71 89 Post Procedure Information Blood Pressure: 126/78 mmHg Rhythm: NSR Post procedural instructions were given Closure Device Time Device Success/Fail 01/13/2018 6:45:00 PM MynxGrip Successful Site Checks Time Location Status Staff Sheath In? Note 06:44 PM Rt Groin No bleeding/hematoma Elizabeth Babcock RT Pulses Time Site Pre-Procedure Post-Procedure Note Bilateral DP & PT 1+ Bilateral radial 2+ Updated by Chon Peterson RN on 01/13/2018 6:56:53 PM electronically signed on 01/13/2018 6:57:17 PM with status of Final
[2018-01-14] MEDS: cefTRIAXone 1,000 MG in Water for inj. (sterile) 20 ML 10 ML IVP SCH (02:41)
[2018-01-14] MEDS: Cholecalciferol (D-3) 1,000 UNIT TABLET PO SCH (07:52)
[2018-01-14] MEDS: Lactobacillus 1 EACH CAP.SPRINK PO SCH (07:52)
[2018-01-14] MEDS: Multivit/Ca/Min/Fe/FA 1 TAB TABLET PO SCH (07:52)
[2018-01-14] MEDS: Aspirin 81 MG TAB.CHEW PO SCH (07:52)
[2018-01-14] MEDS: Loratadine 10 MG TABLET PO SCH (07:53)
--- NOTE | 2018-01-14 08:12 | Cardiology Progress Note ---
Date of Encounter: 01/14/18 Time of Encounter: 08:10 Assessment and Plan (1) NSTEMI (non-ST elevated myocardial infarction) Current Visit: Yes Status: Acute Per Cardiology: Atypical chest pain symptoms. Peak trop 1.23, CP free now. Echo showed EF preserved at 6065%, no significant valvular dysfunction. Catheterization showed nonobstructive CAD with left main 20%, and distal LAD 40% lesion-- noted to be small caliber vessel. Continue with medical management. On aspirin, statin, BRIAN inhibitor, beta abiola. Cardiology will sign off, reconsult as needed, follow- up scheduled. All questions answered. Patient and sister verbalized understanding and agreed with plan. (2) Chest pain Current Visit: Yes Status: Acute Per Cardiology: Atypical CP at rest occurring in setting of N/V/Cough. However, Trop elevated 1.23. Qualifiers: Chest pain type: unspecified Qualified Code(s): R07.9 - Chest pain, unspecified (3) UTI (urinary tract infection) Current Visit: Yes Status: Acute Per Cardiology: History of urostomy in setting of bladder cancer at [facility]. Management per primary service. Qualifiers: Urinary tract infection type: site unspecified Hematuria presence: without hematuria Qualified Code(s): N39.0 - Urinary tract infection, site not specified Discussion w patient/family: The assessment and plan as outlined above was discussed with the patient and/or family members who expressed understanding and agreement. All questions were answered. Thank you for involving us in the care of your patient. Please call with any questions. Subjective Principal diagnosis: Elevated Trop, Atypical CP Interval history: Denies any further chest pain symptoms. Reports some mild right groin soreness overnight. Denies any other concerns or complaints. Objective Vital Signs, Last 4 Hours Temp Pulse Resp BP Pulse Ox 01/14/18 07:20 98.0 F 74 18 98/67 90 01/14/18 05:06 97.6 F 70 18 94/63 97 General: Conversant, No Apparent Distress HEENT: Atraumatic, Normocephaly, Mucus Membranes Moist Neck: No JVD, Normal carotid pulses Cardiac: Reg Rate and Rhythm, Normal S1 and S2, No Murmur Lungs: Normal Breath Sounds, No Wheeze, Rales, Rhonchi Neuro: Alert and responsive, No focal deficits noted Abdomen: Soft, Non-Tender Skin: No rashes noted on visualized skin, Other (Right groin site dry and intact , no hematoma, no bleeding, no ecchymosis, right DP and PT pulses 1+ palpable) Results 01/13/18 03:38 01/13/18 03:38 Lab Results Laboratory Tests 01/12/18 01/12/18 01/13/18 23:46 23:46 03:38 INR 1.1 Troponin I 1.02 H* 1.11 H* 01/13/18 10:49 INR Troponin I 1.23 H* Impressions Echocardiogram 01/13/18 02:27 Impressions: LVEF 60-65%. Normal LV chamber size, wall thickness and function. Normal left ventricular diastolic function. Normal right ventricular structure and function. No evidence of pulmonary hypertension. No significant valvular dysfunction. Left Ventricular Wall Motion: Rest Echo Findings All wall segments showed normal motion. Findings: Study Quality * Technically sub-optimal due to poor echocardiographic windows. ECG Findings * Normal sinus rhythm. Left Ventricle * LVEF 60-65%. * Normal LV chamber size, wall thickness and function. * Normal left ventricular diastolic function. Right Ventricle * Normal right ventricular structure and function. Left Atrium * Mildly dilated left atrium. Right Atrium * Normal right atrial size. Interatrial Septum * Interatrial septum not well evaluated. Aortic Valve * Aortic valve not well visualized. * No aortic stenosis. * No aortic regurgitation. Mitral Valve * Normal mitral valve structure and function. * No mitral regurgitation. * No mitral stenosis. Tricuspid Valve * Normal tricuspid valve structure and function. * Trace tricuspid regurgitation. * No evidence of pulmonary hypertension. Pulmonic Valve * Pulmonic valve not well visualized. * No pulmonic regurgitation. Aorta * Normally sized aortic root. Pericardium * The pericardium appears normal. IVC * The IVC is not well evaluated. Pulmonary Artery * Normal visualized portions of the main pulmonary artery. Active Medications Acetaminophen (Tylenol) 650 mg PO Q6HR PRN PRN Reason: Mild Pain/Fever Stop: 07/15/18 02:13 Hydrocodone Bitart/Acetaminophen ([place] 5-325 Mg) 1 tab PO Q6HR PRN PRN Reason: Moderate Pain Stop: 07/15/18 02:13 Aspirin (Aspirin) 81 mg PO DAILY [facility] Stop: 07/16/18 09:01 Last Admin: 01/14/18 07:52 Dose: 81 mg Atorvastatin Calcium (Lipitor) 40 mg PO HS [facility] Stop: 07/15/18 21:01 Last Admin: 01/13/18 20:32 Dose: 40 mg Beclomethasone Dipropionate (Qvar 80 Mcg) 2 puff IH BIDR [facility] Stop: 07/15/18 10:01 Last Admin: 01/13/18 20:30 Dose: 2 puff Ceftriaxone Sodium 1,000 mg/ (Sterile Water) 10 mls @ 300 mls/hr IVP Q24H [facility] Stop: 07/16/18 02:01 Last Admin: 01/14/18 02:41 Dose: 300 mls/hr Lactobacillus Acidophilus/Rhamnosus (Culturelle) 1 each PO DAILY [facility] Stop: 07/15/18 09:01 Last Admin: 01/14/18 07:52 Dose: 1 each Levothyroxine Sodium (Synthroid) 200 mcg PO 0630 [facility] Stop: 07/15/18 06:31 Last Admin: 01/14/18 05:53 Dose: 200 mcg Lisinopril (Zestril) 10 mg PO DAILY [facility] Stop: 07/15/18 09:01 Last Admin: 01/14/18 07:43 Dose: Not Given Loratadine (Claritin) 10 mg PO DAILY [facility] PRN Reason: Protocol Stop: 07/15/18 09:01 Last Admin: 01/14/18 07:53 Dose: 10 mg Metoprolol Tartrate (Lopressor) 12.5 mg PO BID [facility] Stop: 07/15/18 21:01 Last Admin: 01/14/18 07:53 Dose: 12.5 mg Multivitamins/Calcium (Thera M Plus) 1 tab PO DAILY [facility] Stop: 07/15/18 09:01 Last Admin: 01/14/18 07:52 Dose: 1 tab Naloxone HCl (Narcan) 0.4 mg IVP Q2MIN PRN PRN Reason: SEE COMMENTS Stop: 07/15/18 02:13 Omeprazole (Prilosec) 20 mg PO 0630 [facility] PRN Reason: Protocol Stop: 07/15/18 06:31 Last Admin: 01/14/18 05:53 Dose: 20 mg Ondansetron HCl (Zofran) 4 mg IVP Q6HR PRN PRN Reason: Nausea And Vomiting Stop: 07/15/18 02:13 Promethazine HCl (Phenergan) 12.5 mg IVP Q6HR PRN PRN Reason: Nausea And Vomiting Stop: 07/15/18 02:13 Vitamin D (Vitamin D) 1,000 unit PO DAILY [facility] Stop: 07/15/18 09:01 Last Admin: 01/14/18 07:52 Dose: 1,000 unit - Imaging and Cardiology Echo: report reviewed Cardiac cath: report reviewed - EKG Interpretation EKG results cardiology: other (SR 70's,) Consult Discharge Plan - Plan Referrals: [facility] [Other] (Office will call you with follow up appointment) Maria Elena An MD [Primary Care Provider] - 01/17/18 1:45 pm
[2018-01-14] MEDS: Beclomethasone 80mcg MDI IH SCH ×2 (08:21→19:56)
--- NOTE | 2018-01-14 16:24 | Internal Med Progress Note ---
Date of Encounter: 01/14/18 Time of Encounter: 11:00 - Assessment and plan (1) NSTEMI (non-ST elevated myocardial infarction) Current Visit: Yes Status: Acute Assessment and plan: -Echo showed preserved LVEF at 60-65%, without any significant valvular dysfunction. -Cardiology consulted and left heart catheterization showed non-obstructive CAD with left main 20%, and distal LAD 40% lesion-- noted to be small caliber vessel. -Recommendations to continue medical management with aspirin, statin, BRIAN inhibitor, beta abiola. (2) UTI (urinary tract infection) Current Visit: Yes Status: Acute Assessment and plan: -Urine cultures were positive for Proteus mirabilis and for gram negative rods; sensitivities pending. -Will continue ceftriaxone until sensitivities known. Qualifiers: Urinary tract infection type: site unspecified Hematuria presence: without hematuria Qualified Code(s): N39.0 - Urinary tract infection, site not specified (3) Ulcer of left heel Current Visit: No Status: Acute Assessment and plan: -Wound care following and appreciate recommendations Qualifiers: Non-pressure ulcer stage: limited to breakdown of skin Qualified Code(s): L97.421 - Non-pressure chronic ulcer of left heel and midfoot limited to breakdown of skin (4) Decubitus ulcer of left thigh, stage 3 Current Visit: No Status: Chronic Assessment and plan: -Wound care following as above and appreciate recommendations (5) Essential hypertension Current Visit: No Status: Chronic Assessment and plan: -Controlled; continue beta abiola and BRIAN inhibitor. (6) Hyperlipidemia Current Visit: No Status: Chronic Assessment and plan: -Continue statin Qualifiers: Hyperlipidemia type: unspecified Qualified Code(s): E78.5 - Hyperlipidemia , unspecified (7) Hypothyroidism Current Visit: No Status: Chronic Qualifiers: Hypothyroidism type: unspecified Qualified Code(s): E03.9 - Hypothyroidism , unspecified (8) Morbid obesity with BMI of 40.0-44.9, adult Current Visit: No Status: Chronic Assessment and plan: -Lifestyle modifications (9) DVT prophylaxis Current Visit: No Status: Acute Assessment and plan: -Heparin subcutaneous - Subjective Interval history: Patient is chest pain free this morning Awaiting sensitivities for acute cystitis management - Constitutional Vitals: Temp Pulse Resp BP Pulse Ox 98.1 F 90 18 126/66 97 01/14/18 15:57 01/14/18 15:57 01/14/18 15:57 01/14/18 15:57 01/14/18 15:57 General appearance: Present: cooperative, A&O X 3, morbidly obese, answers questions appropriately - Respiratory Respiratory exam: Present: CTAB. Absent: accessory muscle use, rales, rhonchi, wheezes - Cardiovascular Cardiovascular exam: Present: RRR, +S1, +S2. Absent: diastolic murmur, gallop, rubs, systolic murmur Internal Medicine: Result - Labs CBC & Chem 7: 01/13/18 03:38 01/13/18 03:38 - ABG Interpretation ABG results: PT/INR, D-dimer PT 12.0 Seconds (9.4-12.1) 01/12/18 23:46 Consult Discharge Plan - Plan Referrals: [facility] [Other] (Office will call you with follow up appointment) Maria Elena An MD [Primary Care Provider] - 01/17/18 1:45 pm
[2018-01-14] MEDS: *HR* Heparin 5,000 UNIT/ML VIAL SQ SCH ×2 (18:10→23:06)
[2018-01-15] MEDS: cefTRIAXone 1,000 MG in Water for inj. (sterile) 20 ML 10 ML IVP SCH (03:44)
[2018-01-15] MEDS: Beclomethasone 80mcg MDI IH SCH ×2 (08:02→20:13)
[2018-01-15] MEDS: Multivit/Ca/Min/Fe/FA 1 TAB TABLET PO SCH (08:54)
[2018-01-15] MEDS: Lactobacillus 1 EACH CAP.SPRINK PO SCH (08:54)
[2018-01-15] MEDS: Cholecalciferol (D-3) 1,000 UNIT TABLET PO SCH (08:54)
[2018-01-15] MEDS: Aspirin 81 MG TAB.CHEW PO SCH (08:55)
[2018-01-15] MEDS: Loratadine 10 MG TABLET PO SCH (08:55)
[2018-01-15] MEDS: *HR* Heparin 5,000 UNIT/ML VIAL SQ SCH ×2 (08:55→16:17)
--- NOTE | 2018-01-15 18:15 | Internal Med Progress Note ---
Date of Encounter: 01/15/18 Time of Encounter: 11:00 - Assessment and plan (1) NSTEMI (non-ST elevated myocardial infarction) Current Visit: Yes Status: Acute Assessment and plan: -Echo showed preserved LVEF at 60-65%, without any significant valvular dysfunction. -Cardiology consulted and left heart catheterization showed non-obstructive CAD with left main 20%, and distal LAD 40% lesion-- noted to be small caliber vessel. -Recommendations to continue medical management with aspirin, statin, BRIAN inhibitor, beta abiola. (2) UTI (urinary tract infection) Current Visit: Yes Status: Acute Assessment and plan: -Urine cultures were positive for Proteus mirabilis and for gram negative rods; sensitivities reveal bacteria only sensitive to IV antibiotics -Will continue IV ceftriaxone to continue for a 5 day course as an outpatient. Qualifiers: Urinary tract infection type: site unspecified Hematuria presence: without hematuria Qualified Code(s): N39.0 - Urinary tract infection, site not specified (3) Ulcer of left heel Current Visit: No Status: Acute Assessment and plan: -Wound care following and appreciate recommendations Qualifiers: Non-pressure ulcer stage: limited to breakdown of skin Qualified Code(s): L97.421 - Non-pressure chronic ulcer of left heel and midfoot limited to breakdown of skin (4) Decubitus ulcer of left thigh, stage 3 Current Visit: No Status: Chronic Assessment and plan: -Wound care following as above and appreciate recommendations (5) Essential hypertension Current Visit: No Status: Chronic Assessment and plan: -Controlled; continue beta abiola and BRIAN inhibitor. (6) Hyperlipidemia Current Visit: No Status: Chronic Assessment and plan: -Continue statin Qualifiers: Hyperlipidemia type: unspecified Qualified Code(s): E78.5 - Hyperlipidemia , unspecified (7) Hypothyroidism Current Visit: No Status: Chronic Assessment and plan: Continue levothyroxine Qualifiers: Hypothyroidism type: unspecified Qualified Code(s): E03.9 - Hypothyroidism , unspecified (8) Morbid obesity with BMI of 40.0-44.9, adult Current Visit: No Status: Chronic Assessment and plan: -Lifestyle modifications (9) DVT prophylaxis Current Visit: No Status: Acute Assessment and plan: -Heparin subcutaneous - Subjective Interval history: Patient is chest pain free this morning Sensitivities for acute cystitis management revealed that bacteria only sensitive to IV antibiotics Will need to make arrangements for IV access as an outpatient to continue therapy - Constitutional Vitals: Temp Pulse Resp BP Pulse Ox 98.3 F 77 18 112/72 95 01/15/18 16:20 01/15/18 16:20 01/15/18 16:20 01/15/18 16:20 01/15/18 16:20 General appearance: Present: cooperative, A&O X 3, morbidly obese, answers questions appropriately Internal Medicine: Result - Labs CBC & Chem 7: 01/13/18 03:38 01/13/18 03:38 - ABG Interpretation ABG results: PT/INR, D-dimer PT 12.0 Seconds (9.4-12.1) 01/12/18 23:46 Consult Discharge Plan - Plan Referrals: [facility] [Other] (Office will call you with follow up appointment) Maria Elena An MD [Primary Care Provider] - 01/17/18 1:45 pm
[2018-01-15] MEDS: Nystatin POWDER 30 GM BOTTLE TP SCH (20:53)
[2018-01-16] MEDS: *HR* Heparin 5,000 UNIT/ML VIAL SQ SCH ×4 (00:37→23:47)
[2018-01-16] MEDS: cefTRIAXone 1,000 MG in Water for inj. (sterile) 20 ML 10 ML IVP SCH (00:37)
[2018-01-16] MEDS: Cholecalciferol (D-3) 1,000 UNIT TABLET PO SCH (07:41)
[2018-01-16] MEDS: Aspirin 81 MG TAB.CHEW PO SCH (07:41)
[2018-01-16] MEDS: Loratadine 10 MG TABLET PO SCH (07:41)
[2018-01-16] MEDS: Multivit/Ca/Min/Fe/FA 1 TAB TABLET PO SCH (07:41)
[2018-01-16] MEDS: Lactobacillus 1 EACH CAP.SPRINK PO SCH (07:41)
[2018-01-16] MEDS: Beclomethasone 80mcg MDI IH SCH ×2 (07:56→19:45)
[2018-01-16 10:38] LABS: Basophils # 0.1 K/mcL (0.0-0.2); Basophils % 0.6 %; Eosinophils # 0.5 K/mcL (0.0-0.6); Eosinophils % 5.9 %; Hematocrit 34.1 % (37.5-50.1); Hemoglobin 10.4 g/dL (12.9-16.9); Immature Granulocytes % 0.4 % (0-4); Lymphocytes # 1.6 K/mcL (0.6-4.6); Lymphocytes % 18.6 %; Mean Corpuscular HGB Conc 30.5 g/dL (31.6-35.5); Mean Corpuscular Hemoglobin 25.4 pg (28.0-33.3); Mean Corpuscular Volume 83.4 fL (83.0-100.0); Mean Platelet Volume 10.2 fL (9.4-12.4); Monocytes # 0.5 K/mcL (0.0-1.3); Monocytes % 6.4 %; Neutrophils # 5.8 K/mcL (1.6-8.9); Platelet Count 330 K/mcL (140-400); Red Blood Count 4.09 M/mcL (4.19-5.50); Red Cell Distribution Width 17.3 % (11.5-14.5); Segmented Neutrophils % 68.1 %
[2018-01-16] MEDS: Nystatin POWDER 30 GM BOTTLE TP SCH ×2 (10:51→23:48)
[2018-01-16 11:11] LABS: BUN/Creatinine Ratio 17 (6-26); Blood Urea Nitrogen 13 mg/dL (6-20); Calcium 9.3 mg/dL (8.6-10.3); Carbon Dioxide 26 mEq/L (23-29); Chloride 105 mEq/L (98-107); Glucose 110 mg/dL (70-105); Osmolality,Calculated 287 (280-300); Potassium 4.4 mEq/L (3.5-5.1); Sodium 138 mEq/L (136-145); eGFR For African Americans > 60 (> 60); eGFR For Non-African Americans > 60 (> 60)
--- NOTE | 2018-01-16 18:42 | Internal Med Progress Note ---
Date of Encounter: 01/16/18 Time of Encounter: 11:00 - Assessment and plan (1) NSTEMI (non-ST elevated myocardial infarction) Current Visit: Yes Status: Acute Assessment and plan: -Echo showed preserved LVEF at 60-65%, without any significant valvular dysfunction. -Cardiology consulted and left heart catheterization showed non-obstructive CAD with left main 20%, and distal LAD 40% lesion-- noted to be small caliber vessel. -Recommendations to continue medical management with aspirin, statin, BRIAN inhibitor, beta abiola. (2) UTI (urinary tract infection) Current Visit: Yes Status: Acute Assessment and plan: -Urine cultures were positive for Proteus mirabilis and for gram negative rods; sensitivities reveal bacteria only sensitive to IV antibiotics -Will continue IV ceftriaxone to continue for a 5 day course as an outpatient. Qualifiers: Urinary tract infection type: site unspecified Hematuria presence: without hematuria Qualified Code(s): N39.0 - Urinary tract infection, site not specified (3) Ulcer of left heel Current Visit: No Status: Acute Assessment and plan: -Wound care following and appreciate recommendations Qualifiers: Non-pressure ulcer stage: limited to breakdown of skin Qualified Code(s): L97.421 - Non-pressure chronic ulcer of left heel and midfoot limited to breakdown of skin (4) Decubitus ulcer of left thigh, stage 3 Current Visit: No Status: Chronic Assessment and plan: -Wound care following as above and appreciate recommendations (5) Essential hypertension Current Visit: No Status: Chronic Assessment and plan: -Controlled; continue beta abiola and BRIAN inhibitor. (6) Hyperlipidemia Current Visit: No Status: Chronic Assessment and plan: -Continue statin Qualifiers: Hyperlipidemia type: unspecified Qualified Code(s): E78.5 - Hyperlipidemia , unspecified (7) Hypothyroidism Current Visit: No Status: Chronic Assessment and plan: Continue levothyroxine Qualifiers: Hypothyroidism type: unspecified Qualified Code(s): E03.9 - Hypothyroidism , unspecified (8) Morbid obesity with BMI of 40.0-44.9, adult Current Visit: No Status: Chronic Assessment and plan: -Lifestyle modifications (9) DVT prophylaxis Current Visit: No Status: Acute Assessment and plan: -Heparin subcutaneous - Subjective Interval history: Sensitivities for acute cystitis management revealed that bacteria only sensitive to IV antibiotics Will need to make arrangements for IV access as an outpatient to continue therapy - Constitutional Vitals: Temp Pulse Resp BP Pulse Ox 98.5 F 99 19 123/92 97 01/16/18 18:27 01/16/18 18:27 01/16/18 18:27 01/16/18 18:27 01/16/18 18:27 General appearance: Present: cooperative, A&O X 3, morbidly obese, answers questions appropriately - Respiratory Respiratory exam: Present: CTAB. Absent: accessory muscle use, rales, rhonchi, wheezes - Cardiovascular Cardiovascular exam: Present: RRR, +S1, +S2. Absent: diastolic murmur, gallop, rubs, systolic murmur Internal Medicine: Result - Labs CBC & Chem 7: 01/16/18 10:21 01/16/18 10:21 Labs: Short CBC 01/16/18 Range/Units 10:21 WBC 8.4 (4.3-11.1) K/mcL Hgb 10.4 L (12.9-16.9) g/dL Hct 34.1 L (37.5-50.1) % Plt Count 330 (140-400) K/mcL Neutrophils # 5.8 (1.6-8.9) K/mcL BMP 01/16/18 10:21 Sodium 138 Potassium 4.4 Chloride 105 Carbon Dioxide 26 BUN 13 Creatinine 0.76 Glucose 110 H Calcium 9.3 - ABG Interpretation ABG results: PT/INR, D-dimer PT 12.0 Seconds (9.4-12.1) 01/12/18 23:46 Consult Discharge Plan - Plan Referrals: [facility] [Other] (Office will call you with follow up appointment) Maria Elena An MD [Primary Care Provider] - 01/17/18 1:45 pm Prescriptions: cefTRIAXone [Rocephin] 1,000 mg IVPB DAILY 5 Days #5 vial
[2018-01-17] MEDS: cefTRIAXone 1,000 MG in Water for inj. (sterile) 20 ML 10 ML IVP SCH (04:02)
[2018-01-17] MEDS: Beclomethasone 80mcg MDI IH SCH ×2 (07:43→20:40)
[2018-01-17] MEDS: Aspirin 81 MG TAB.CHEW PO SCH (09:28)
[2018-01-17] MEDS: Multivit/Ca/Min/Fe/FA 1 TAB TABLET PO SCH (09:28)
[2018-01-17] MEDS: Lactobacillus 1 EACH CAP.SPRINK PO SCH (09:28)
[2018-01-17] MEDS: Loratadine 10 MG TABLET PO SCH (09:28)
[2018-01-17] MEDS: Cholecalciferol (D-3) 1,000 UNIT TABLET PO SCH (09:28)
[2018-01-17] MEDS: *HR* Heparin 5,000 UNIT/ML VIAL SQ SCH ×3 (09:29→23:58)
[2018-01-17] MEDS: Nystatin POWDER 30 GM BOTTLE TP SCH ×2 (09:30→21:41)
--- NOTE | 2018-01-17 17:43 | Discharge Summary ---
Date of Encounter: 01/17/18 Time of Encounter: 11:00 - Discharge Diagnosis (1) NSTEMI (non-ST elevated myocardial infarction) Priority: Primary Status: Acute (2) UTI (urinary tract infection) Priority: Primary Status: Acute Qualifiers: Urinary tract infection type: site unspecified Hematuria presence: without hematuria Qualified Code(s): N39.0 - Urinary tract infection, site not specified (3) Ulcer of left heel Priority: Secondary Status: Acute Qualifiers: Non-pressure ulcer stage: limited to breakdown of skin Qualified Code(s): L97.421 - Non-pressure chronic ulcer of left heel and midfoot limited to breakdown of skin (4) Decubitus ulcer of left thigh, stage 3 Priority: Secondary Status: Chronic (5) Essential hypertension Priority: Secondary Status: Chronic (6) Hyperlipidemia Priority: Secondary Status: Chronic Qualifiers: Hyperlipidemia type: unspecified Qualified Code(s): E78.5 - Hyperlipidemia , unspecified (7) Hypothyroidism Priority: Secondary Status: Chronic Qualifiers: Hypothyroidism type: unspecified Qualified Code(s): E03.9 - Hypothyroidism , unspecified (8) Morbid obesity with BMI of 40.0-44.9, adult Priority: Secondary Status: Chronic - Discharge Medications Prescriptions: Aspirin 81 mg PO DAILY #30 tab.chew Furosemide [Lasix] 40 mg PO DAILY 7 Days #7 tablet Metoprolol [Lopressor] 12.5 mg PO BID #30 tablet Home Medications: Cholecalciferol (Vitamin D3) [Vitamin D3] 5,000 unit PO DAILY 11/12/16 [History] Fluticasone Propionate [Flovent Hfa] 1 - 2 puff IH BID 11/12/16 [History] Levothyroxine [Synthroid] 200 mcg PO DAILY 11/12/16 [History] Lactobacillus Acidophilus/Fos [Acidophilus Probiotic Tablet] 1 cap PO DAILY 06/17 [History] Loratadine [Claritin] 10 mg PO DAILY 03/08/17 [History] Multivitamin [One Daily Multivitamin] 1 tab PO DAILY 03/08/17 [History] Enalapril Maleate [Vasotec] 10 mg PO DAILY 03/23/17 [History] Omeprazole [PriLOSEC] 20 mg PO DAILY 08/25/17 [History] Atorvastatin [Lipitor] 40 mg PO HS 11/14/17 [History] Aspirin 81 mg PO DAILY #30 tab.chew 01/17/18 [Rx] Furosemide [Lasix] 40 mg PO DAILY 7 Days #7 tablet 01/17/18 [Rx] Metoprolol [Lopressor] 12.5 mg PO BID #30 tablet 01/17/18 [Rx] Allergies/Adverse Reactions: 3 Allergy/AdvReac Type Severity Reaction Status Date / Time adhesive Allergy Blister Verified 12/10/17 21:23 Amoxicillin Allergy Hives Verified 12/10/17 21:23 Oxaprozin [From Daypro] AdvReac Diarrhea Verified 12/10/17 21:23 Date of admission: 01/13/18 03:05 Primary care physician: Maria Elena An Consults: 01/13/18 15:19 Consult to Cardiac Rehabilitation-Phase1 [CONS] Routine Comment: Reason for Consult: NSTEMI Call Completed: No 01/17/18 03:18 Consult to Wound Care [CONS] Stat Reason for Consult: wound around ostomy Call Completed: Yes - Patient Status Disposition: Home, Self-Care Condition: Good - Discharge Instructions Follow Up With: [facility] [Other] (Office will call you with follow up appointment) Maria Elena An MD [Primary Care Provider] - 01/24/18 1:45 pm Hospital course: Patient is a 48-year-old male with past medical history significant for CHF, CVA , hyperlipidemia, hypertension, hypothyroidism and mood disorder who presents to the ER on 01/13/18 due to flulike symptoms. He was brought into the ER by family stating that he has been feeling weak, lethargic and flu like symptoms from last 2 days. He does c/o chest pain y/d located substernal, non-radiating, 61/0 in severity lasted for few minutes. He denied any active CP now. However he does c/po generalized body aches. He also have nausea / vomiting and diarrhea. Here in the ER his Trop significantly elevated @ 1.02. Patient was admitted for further evaluation. During patients hospital stay, cardiology consulted and left heart catheterization showed non-obstructive CAD with left main 20%, and distal LAD 40 % lesion-- noted to be small caliber vessel. Recommendations to continue medical management with aspirin, statin, BRIAN inhibitor, beta abiola. Patient was also treated for UTI with IV ceftriaxone for a total 5 days during hospital stay. - Time Spent with Patient Total time spent providing and/or coordinating discharge services: Less than 30 minutes - Constitutional Vitals: Temp Pulse Resp BP Pulse Ox 97.7 F 80 18 113/69 97 01/17/18 13:04 01/17/18 13:04 01/17/18 13:04 01/17/18 13:04 01/17/18 13:04 General appearance: Present: cooperative, A&O X 3, morbidly obese, answers questions appropriately - Respiratory Respiratory exam: Present: CTAB. Absent: accessory muscle use, rales, rhonchi, wheezes - Cardiovascular Cardiovascular exam: Present: RRR, +S1, +S2. Absent: diastolic murmur, gallop, rubs, systolic murmur
[2018-01-18] MEDS: cefTRIAXone 1,000 MG in Water for inj. (sterile) 20 ML 10 ML IVP SCH (03:24)
[2018-01-18] MEDS: Lactobacillus 1 EACH CAP.SPRINK PO SCH (07:38)
[2018-01-18] MEDS: Multivit/Ca/Min/Fe/FA 1 TAB TABLET PO SCH (07:38)
[2018-01-18] MEDS: Aspirin 81 MG TAB.CHEW PO SCH (07:39)
[2018-01-18] MEDS: Loratadine 10 MG TABLET PO SCH (07:39)
[2018-01-18] MEDS: Cholecalciferol (D-3) 1,000 UNIT TABLET PO SCH (07:40)
[2018-01-18] MEDS: *HR* Heparin 5,000 UNIT/ML VIAL SQ SCH (07:41)
[2018-01-18] MEDS: Nystatin POWDER 30 GM BOTTLE TP SCH (07:42)
[2018-01-18] MEDS: Beclomethasone 80mcg MDI IH SCH (08:16)
[2018-01-18 10:56] VITALS: BP 108/72
--- NOTE | 2018-01-18 14:01 | Physician Discharge Referral ---
Home Health/Hosp Referral Info Transfer to: Home Health - Diagnosis (1) NSTEMI (non-ST elevated myocardial infarction) Status: Acute (2) UTI (urinary tract infection) Status: Acute (3) Ulcer of left heel Status: Acute (4) Decubitus ulcer of left thigh, stage 3 Status: Chronic (5) Essential hypertension Status: Chronic (6) Hyperlipidemia Status: Chronic (7) Hypothyroidism Status: Chronic (8) Morbid obesity with BMI of 40.0-44.9, adult Status: Chronic - Respiratory Orders Smoking Cessation: Smoking cessation has been advised. For more information, call the [place] Tobacco Quit Line at 7-411-KQMM-NOW. - Services Needed Following services are medically necessary services: Nursing - Transfer Medications Prescriptions: Aspirin 81 mg PO DAILY #30 tab.chew Furosemide [Lasix] 40 mg PO DAILY 7 Days #7 tablet Metoprolol [Lopressor] 12.5 mg PO BID #30 tablet Home Medications: Cholecalciferol (Vitamin D3) [Vitamin D3] 5,000 unit PO DAILY 11/12/16 [History] Fluticasone Propionate [Flovent Hfa] 1 - 2 puff IH BID 11/12/16 [History] Levothyroxine [Synthroid] 200 mcg PO DAILY 11/12/16 [History] Lactobacillus Acidophilus/Fos [Acidophilus Probiotic Tablet] 1 cap PO DAILY 06/17 [History] Loratadine [Claritin] 10 mg PO DAILY 03/08/17 [History] Multivitamin [One Daily Multivitamin] 1 tab PO DAILY 03/08/17 [History] Enalapril Maleate [Vasotec] 10 mg PO DAILY 03/23/17 [History] Omeprazole [PriLOSEC] 20 mg PO DAILY 08/25/17 [History] Atorvastatin [Lipitor] 40 mg PO HS 11/14/17 [History] Aspirin 81 mg PO DAILY #30 tab.chew 01/17/18 [Rx] Furosemide [Lasix] 40 mg PO DAILY 7 Days #7 tablet 01/17/18 [Rx] Metoprolol [Lopressor] 12.5 mg PO BID #30 tablet 01/17/18 [Rx] Allergies/Adverse Reactions: 3 Allergy/AdvReac Type Severity Reaction Status Date / Time adhesive Allergy Blister Verified 12/10/17 21:23 Amoxicillin Allergy Hives Verified 12/10/17 21:23 Oxaprozin [From Daypro] AdvReac Diarrhea Verified 12/10/17 21:23 Certification: Further, I certify that my clinical findings support that this patient is homebound (i.e. absences from home require considerable and taxing effort and are for medical reasons or latter-day services or infrequently or short duration when for other reasons) because: Homebound Reason: Leaving home requires considerable and taxing effort due to condition Attestation: My signature below is to certify that this patient is under my care and that I, or nurse practitioner, or a physician's desk assistant working with me, has a face-to -face encounter with this patient.
== END 2018-01-18 14:50 | disposition home health service (06) | DRG 280 ==
LOC: 2NNU 22:43 → EMEROO 22:43 → 2NNU 01-13 02:13 → SUATTDRO 01-13 03:05 → 3ANU 01-16 20:53
PROVIDERS: ADMIT Internal Medicine; ATTEND Hospitalist

== ENCOUNTER 2018-01-25 23:37 | Inpatient (IN) ==
--- NOTE | 2018-01-26 00:02 | Emergency Department Note ---
Disposition Clinical Impression: Sepsis Qualifiers: Sepsis type: sepsis due to unspecified organism Qualified Code(s): A41.9 - Sepsis, unspecified organism Open abdominal wall wound Qualifiers: Encounter type: initial encounter Qualified Code(s): S31.109A - Unspecified open wound of abdominal wall, unspecified quadrant without penetration into peritoneal cavity, initial encounter Disposition: Admitted As Inpatient Condition: Fair Referrals: Maria Elena An MD [Primary Care Provider] - Forms: ED Satisfaction Letter Time of Disposition: 04:00 Male Urogenital HPI - General Chief complaint: ED Urogenital-Male Stated complaint: blood in urine Time Seen by Provider: 01/25/18 23:41 Source: patient Mode of arrival: EMS Limitations: physical limitation Nursing Notes Reviewed: Yes Vital Signs Reviewed: Yes - History of Present Illness HPI Narrative: 48-year-old male presents by EMS for evaluation of bloody and purulent drainage from his right-sided urostomy as well as blood in the collection bag from his urostomy tube. He states that this has been ongoing for the past 3 days. He was recently treated with IV antibiotics" for a urinary tract infection approximately one week ago for. He does complain of subjective fevers and chills as well as intermittent episodes of nausea and vomiting. Onset (ago): day(s) (3) Duration: constant Reports: other (Blood and pus draining from the site of his right sided urostomy ) - Related Data Home Medications Medication Instructions Recorded Confirmed Cholecalciferol (Vitamin D3) 5,000 unit PO DAILY 11/12/16 01/13/18 [Vitamin D3] Fluticasone Propionate [Flovent 1 - 2 puff IH BID 11/12/16 01/13/18 Hfa] Levothyroxine [Synthroid] 200 mcg PO DAILY 11/12/16 01/13/18 Lactobacillus Acidophilus/Fos 1 cap PO DAILY 03/08/17 01/13/18 [Acidophilus Probiotic Tablet] Loratadine [Claritin] 10 mg PO DAILY 03/08/17 01/13/18 Multivitamin [One Daily 1 tab PO DAILY 03/08/17 01/13/18 Multivitamin] Enalapril Maleate [Vasotec] 10 mg PO DAILY 03/23/17 01/13/18 Omeprazole [PriLOSEC] 20 mg PO DAILY 08/25/17 01/13/18 Atorvastatin [Lipitor] 40 mg PO HS 11/14/17 01/13/18 Previous Rx's Medication Instructions Recorded Aspirin 81 mg PO DAILY #30 tab.chew 01/17/18 Furosemide [Lasix] 40 mg PO DAILY 7 Days #7 tablet 01/17/18 Metoprolol [Lopressor] 12.5 mg PO BID #30 tablet 01/17/18 Ondansetron ODT [Zofran ODT] 4 mg SL Q6HR PRN #10 tab.rapdis 01/18/18 Oseltamivir [Tamiflu] 75 mg PO Q12H #10 capsule 01/19/18 Allergies Allergy/AdvReac Type Severity Reaction Status Date / Time adhesive Allergy Blister Verified 12/10/17 21:23 Amoxicillin Allergy Hives Verified 12/10/17 21:23 Oxaprozin [From Daypro] AdvReac Diarrhea Verified 12/10/17 21:23 All systems ED: reviewed and negative except as stated. Constitutional: Reports: as per HPI, fever, chills. Denies: weakness, weight change Eyes: Denies: eye pain, eye discharge, vision change ENT ED: Denies: ear pain, throat pain, dental pain, hearing loss, epistaxis, congestion, dysphagia Cardiovascular: Denies: chest pain, palpitations, dyspnea on exertion, edema, syncope Respiratory: Denies: cough, dyspnea, wheezes, hemoptysis, stridor Gastrointestinal: Denies: abdominal pain, nausea, vomiting, diarrhea, constipation, hematemesis, melena, hematochezia Genitourinary: Reports: as per HPI, hematuria. Denies: urgency, dysuria, frequency Musculoskeletal: Denies: back pain, neck pain, arthralgia, myalgia Integumentary: Denies: rash, abrasion, lesions Neurological: Denies: headache, weakness, numbness, paresthesias, confusion, abnormal gait, vertigo Psychiatric: Denies: anxiety, depression, suicidal thoughts, homicidal thoughts , auditory hallucinations, visual hallucinations Endocrine: Denies: fatigue Hematological/Lymphatic: Denies: easy bleeding, easy bruising Allergic/Immunologic: Denies: facial swelling, urticaria Past Medical History - Past Medical History Attestation: Yes The following information was validated with the patient. Source: patient, nursing notes reviewed Medical history: Reports: asthma, cancer, CHF, CVA, hyperlipidemia, hypertension , thyroid disease, other Surgical history: Reports: appendectomy, orthopedic, other (Hardware in the BLE) , vasectomy, other (Cystectomy) Psychiatric history: Reports: depression - Social History Smoking Status: Never smoker Smokeless Tobacco Status: No Alcohol use: Reports: rarely Drug use: Reports: none Physical Exam - General General appearance: alert, in no apparent distress - Head Head exam: normal inspection - Eye Eye exam: Present: normal appearance. Absent: nystagmus - ENT ENT exam: mucous membranes moist - Neck Neck exam: Present: normal inspection, full ROM, trachea midline - Chest Chest inspection: Present: normal inspection, symmetric chest wall rise - Respiratory Respiratory exam: Present: normal lung sounds bilaterally. Absent: respiratory distress, wheezes, stridor, accessory muscle use, prolonged expiratory phase - Cardiovascular Cardiovascular exam: Present: regular rate, normal rhythm, normal heart sounds - Abdominal Exam Abdominal Exam: Present: soft, Non-Tender, normal bowel sounds - Male exam: Present: other (Right-sided urostomy noted to be continuously seeping a serosanguineous drainage.) - Neurological Exam Neurological exam: Present: alert, oriented X3 - Psychiatric Psychiatric exam: Present: normal affect, normal mood - Skin Skin exam: Present: warm, dry, normal color Course Course Narrative: I have discussed this patient's case with Dr. Meyer, hospitalist [employer] ax consultant. He is accepted the patient for admission to the hospitalist service. Dr. Froy Chavez has had [id number] time with this patient and agrees with this plan. Vital Signs Temperature 97.4 F L 01/25/18 23:39 Pulse Rate 110 01/25/18 23:39 Respiratory Rate 20 01/25/18 23:39 Blood Pressure 138/90 01/25/18 23:39 O2 Sat by Pulse Oximetry 99 01/25/18 23:39 Temperature 97.4 F L 01/25/18 23:39 Pulse Rate 72 01/26/18 03:36 Respiratory Rate 20 01/26/18 03:36 Blood Pressure 133/66 01/26/18 03:36 O2 Sat by Pulse Oximetry 99 01/26/18 02:34 Oxygen Delivery Oxygen Delivery Room Air Urogenital-Male - Medical Records Medical records reviewed: Yes I reviewed the patient's medical records. - Lab Data Lab results reviewed: Yes I reviewed the patient's lab results. Lab results narrative: Laboratory Last Values WBC 15.1 K/mcL (4.3-11.1) H 01/26/18 02:31 RBC 4.67 M/mcL (4.19-5.50) 01/26/18 02:31 Hgb 11.9 g/dL (12.9-16.9) L 01/26/18 02:31 Hct 37.9 % (37.5-50.1) 01/26/18 02: MCV 81.2 fL (83.0-100.0) L 01/26/18 02: MCH 25.5 pg (28.0-33.3) L 01/26/18 02: MCHC 31.4 g/dL (31.6-35.5) L 01/26/18 02:31 RDW 16.7 % (11.5-14.5) H 01/26/18 02:31 Plt Count 359 K/mcL (140-400) 01/26/18 02:31 MPV 10.3 fL (9.4-12.4) 01/26/18 02:31 Immature Gran % 0.6 % (0-4) 01/26/18 02: Seg Neutrophils % 76.4 % 01/26/18 02:31 Lymphocytes % 13.7 % 01/26/18 02:31 Monocytes % 6.1 % 01/26/18 02:31 Eosinophils % 2.7 % 01/26/18 02: Basophils % 0.5 % 01/26/18 02:31 Neutrophils # 11.6 K/mcL (1.6-8.9) H 01/26/18 02:31 Lymphocytes # 2.1 K/mcL (0.6-4.6) 01/26/18 02:31 Monocytes # 0.9 K/mcL (0.0-1.3) 01/26/18 02:31 Eosinophils # 0.4 K/mcL (0.0-0.6) 01/26/18 02:31 Basophils # 0.1 K/mcL (0.0-0.2) 01/26/18 02:31 Immature Plt Fraction 4.4 % (1.1-6.1) 01/26/18 02:31 Sodium 131 mEq/L (136-145) L 01/26/18 02:31 Potassium 4.1 mEq/L (3.5-5.1) 01/26/18 02:31 Chloride 100 mEq/L (98-107) 01/26/18 02:31 Carbon Dioxide 22 mEq/L (23-29) L 01/26/18 02:31 BUN 23 mg/dL (6-20) H 01/26/18 02:31 Creatinine 1.06 mg/dL (0.70-1.30) 01/26/18 02:31 Est GFR ( Amer) > 60 (> 60) 01/26/18 02:31 Est GFR (Non-Af Amer) > 60 (> 60) 01/26/18 02:31 BUN/Creatinine Ratio 22 (6-26) 01/26/18 02:31 Glucose 129 mg/dL (70-105) H 01/26/18 02:31 Calculated Osmolality 277 (280-300) L 01/26/18 02:31 Lactic Acid 3.1 mmol/L (0.5-2.2) H 01/26/18 01:29 Calcium 9.3 mg/dL (8.6-10.3) 01/26/18 02:31 Total Bilirubin 0.4 mg/dL (0.3-1.0) 01/26/18 02:31 Direct Bilirubin 0.0 mg/dL (0.0-0.2) 01/26/18 02:31 Indirect Bilirubin 0.4 mg/dL (0.0-1.2) 01/26/18 02:31 AST 18 Units/L (13-39) 01/26/18 02:31 ALT 15 Units/L (7-52) 01/26/18 02:31 Alkaline Phosphatase 73 Units/L (34-104) 01/26/18 02:31 Serum Total Protein 7.8 g/dL (6.4-8.9) 01/26/18 02:31 Albumin 3.9 g/dL (3.5-5.7) 01/26/18 02:31 Globulin 3.9 g/dL (2.4-3.5) H 01/26/18 02:31 Albumin/Globulin Ratio 1.0 (1.1-2.2) L 01/26/18 02:31 Amylase 45 Units/L (29-103) 01/26/18 02:31 Lipase 26 Units/L (11-82) 01/26/18 02:31 Urine Color Yellow (Yellow) 01/26/18 02:55 Urine Clarity Clear (Clear) 01/26/18 02:55 Urine pH 6.0 pH Units (5.0-8.0) 01/26/18 02:55 Ur Specific [place] 1.018 (1.010-1.025) 01/26/18 02:55 Urine Protein Negative mg/dL (Neg-Trace) 01/26/18 02:55 Urine Glucose (UA) Normal mg/dL (Normal) 01/26/18 02:55 Urine Ketones Negative mg/dL (Negative) 01/26/18 02:55 Urine Blood Moderate (Negative) H 01/26/18 02:55 Urine Nitrite Negative (Negative) 01/26/18 02:55 Urine Bilirubin Negative (Negative) 01/26/18 02:55 Urine Urobilinogen Normal mg/dL (Normal) 01/26/18 02:55 Ur Leukocyte Esterase Moderate (Negative) H 01/26/18 02:55 Urine Microscopic RBC 5-15 per hpf (0-3) H 01/26/18 02:55 Urine Microscopic WBC 5-15 per hpf (0-3) H 01/26/18 02:55 Ur Squamous Epith Cells Many per lpf (None-Few) H 01/26/18 02:55 Triple Phos Crystals Present 01/26/18 00:00 Urine Bacteria None Seen per hpf (None-Few) 01/26/18 02:55 Hyaline Casts Few per lpf (None-Few) 01/26/18 02:55 Ur Culture Indicated? NO. (NO) 01/26/18 02:55 Specimen Rejected Hemolyzed 01/26/18 01:29 Result diagrams: 01/26/18 02:31 01/26/18 02:31 Lab Results 01/26/18 01/26/18 01/26/18 Range/Units 00:00 01:29 01:29 WBC (4.3-11.1) K/mcL RBC (4.19-5.50) M/mcL Hgb (12.9-16.9) g/dL Hct (37.5-50.1) % MCV (83.0-100.0) fL MCH (28.0-33.3) pg MCHC (31.6-35.5) g/dL RDW (11.5-14.5) % Plt Count (140-400) K/mcL MPV (9.4-12.4) fL Immature Gran % (0-4) % Seg Neutrophils % % Lymphocytes % % Monocytes % % Eosinophils % % Basophils % % Neutrophils # (1.6-8.9) K/mcL Lymphocytes # (0.6-4.6) K/mcL Monocytes # (0.0-1.3) K/mcL Eosinophils # (0.0-0.6) K/mcL Basophils # (0.0-0.2) K/mcL Immature Plt Fraction (1.1-6.1) % Sodium (136-145) mEq/L Potassium (3.5-5.1) mEq/L Chloride (98-107) mEq/L Carbon Dioxide (23-29) mEq/L BUN (6-20) mg/dL Creatinine (0.70-1.30) mg/dL Est GFR ( Amer) (> 60) Est GFR (Non-Af Amer) (> 60) BUN/Creatinine Ratio (6-26) Glucose (70-105) mg/dL Calculated Osmolality (280-300) Lactic Acid 3.1 H (0.5-2.2) mmol/L Calcium (8.6-10.3) mg/dL Total Bilirubin (0.3-1.0) mg/dL Direct Bilirubin (0.0-0.2) mg/dL Indirect Bilirubin (0.0-1.2) mg/dL AST (13-39) Units/L ALT (7-52) Units/L Alkaline Phosphatase (34-104) Units/L Serum Total Protein (6.4-8.9) g/dL Albumin (3.5-5.7) g/dL Globulin (2.4-3.5) g/dL Albumin/Globulin Ratio (1.1-2.2) Amylase (29-103) Units/L Lipase (11-82) Units/L Urine Color Dark Yellow (Yellow) Urine Clarity Turbid A (Clear) Urine pH 8.5 H (5.0-8.0) pH Units Ur Specific [place] 1.022 (1.010-1.025) Urine Protein >=1000 H (Neg-Trace) mg/dL Urine Glucose (UA) 100 H (Normal) mg/dL Urine Ketones Negative (Negative) mg/dL Urine Blood Large H (Negative) Urine Nitrite Negative (Negative) Urine Bilirubin Negative (Negative) Urine Urobilinogen Normal (Normal) mg/dL Ur Leukocyte Esterase Large H (Negative) Urine Microscopic RBC 30-50 H (0-3) per hpf Urine Microscopic WBC 30-50 H (0-3) per hpf Ur Squamous Epith Cells Many H (None-Few) per lpf Triple Phos Crystals Present Urine Bacteria Many H (None-Few) per hpf Hyaline Casts Few (None-Few) per lpf Ur Culture Indicated? NO. (NO) Specimen Rejected Hemolyzed 01/26/18 01/26/18 01/26/18 Range/Units 02:31 02:31 02:55 WBC 15.1 H (4.3-11.1) K/mcL RBC 4.67 (4.19-5.50) M/mcL Hgb 11.9 L (12.9-16.9) g/dL Hct 37.9 (37.5-50.1) % MCV 81.2 L (83.0-100.0) fL MCH 25.5 L (28.0-33.3) pg MCHC 31.4 L (31.6-35.5) g/dL RDW 16.7 H (11.5-14.5) % Plt Count 359 (140-400) K/mcL MPV 10.3 (9.4-12.4) fL Immature Gran % 0.6 (0-4) % Seg Neutrophils % 76.4 % Lymphocytes % 13.7 % Monocytes % 6.1 % Eosinophils % 2.7 % Basophils % 0.5 % Neutrophils # 11.6 H (1.6-8.9) K/mcL Lymphocytes # 2.1 (0.6-4.6) K/mcL Monocytes # 0.9 (0.0-1.3) K/mcL Eosinophils # 0.4 (0.0-0.6) K/mcL Basophils # 0.1 (0.0-0.2) K/mcL Immature Plt Fraction 4.4 (1.1-6.1) % Sodium 131 L (136-145) mEq/L Potassium 4.1 (3.5-5.1) mEq/L Chloride 100 (98-107) mEq/L Carbon Dioxide 22 L (23-29) mEq/L BUN 23 H (6-20) mg/dL Creatinine 1.06 (0.70-1.30) mg/dL Est GFR ( Amer) > 60 (> 60) Est GFR (Non-Af Amer) > 60 (> 60) BUN/Creatinine Ratio 22 (6-26) Glucose 129 H (70-105) mg/dL Calculated Osmolality 277 L (280-300) Lactic Acid (0.5-2.2) mmol/L Calcium 9.3 (8.6-10.3) mg/dL Total Bilirubin 0.4 (0.3-1.0) mg/dL Direct Bilirubin 0.0 (0.0-0.2) mg/dL Indirect Bilirubin 0.4 (0.0-1.2) mg/dL AST 18 (13-39) Units/L ALT 15 (7-52) Units/L Alkaline Phosphatase 73 (34-104) Units/L Serum Total Protein 7.8 (6.4-8.9) g/dL Albumin 3.9 (3.5-5.7) g/dL Globulin 3.9 H (2.4-3.5) g/dL Albumin/Globulin Ratio 1.0 L (1.1-2.2) Amylase 45 (29-103) Units/L Lipase 26 (11-82) Units/L Urine Color Yellow (Yellow) Urine Clarity Clear (Clear) Urine pH 6.0 (5.0-8.0) pH Units Ur Specific [place] 1.018 (1.010-1.025) Urine Protein Negative (Neg-Trace) mg/dL Urine Glucose (UA) Normal (Normal) mg/dL Urine Ketones Negative (Negative) mg/dL Urine Blood Moderate H (Negative) Urine Nitrite Negative (Negative) Urine Bilirubin Negative (Negative) Urine Urobilinogen Normal (Normal) mg/dL Ur Leukocyte Esterase Moderate H (Negative) Urine Microscopic RBC 5-15 H (0-3) per hpf Urine Microscopic WBC 5-15 H (0-3) per hpf Ur Squamous Epith Cells Many H (None-Few) per lpf Triple Phos Crystals Urine Bacteria None Seen (None-Few) per hpf Hyaline Casts Few (None-Few) per lpf Ur Culture Indicated? NO. (NO) Specimen Rejected - Radiology Data Radiology results reviewed: Yes I reviewed the patient's radiology results. Chest X-Ray 01/26/18 00:15 IMPRESSION: 1. No acute cardiopulmonary disease. D/ / Ceasar Morales MD / Ceasar Morales MD Interpreting Provider: Ceasar Morales MD Abdomen/Pelvis CT 01/26/18 02:40 IMPRESSION: No enhancing renal mass or obstruction is identified. No evidence of hydronephrosis or hydroureter. Postsurgical changes are seen related to urostomy. No acute intra-abdominal or pelvic process is identified. Cholelithiasis without CT evidence to suggest acute cholecystitis. D/ / Tree Barroso MD / Tree Barroso MD Interpreting Provider: Tree Barroso MD
[2018-01-26 00:36] LABS: Bilirubin,Urine Negative (Negative); Blood,Urine Large (Negative); Clarity,Urine Turbid (Clear); Color,Urine Dark Yellow (Yellow); Glucose,Urine (UA) 100 mg/dL (Normal); Ketones,Urine Negative (Negative); Leukocyte Esterase,Urine Large (Negative); Nitrite,Urine Negative (Negative); PH,Urine 8.5 pH Units (5.0-8.0); Protein,Urine >=1000 mg/dL (Neg-Trace); Specific Gravity,Urine 1.022 (1.010-1.025); Urobilinogen,Urine Normal (Normal)
[2018-01-26 00:41] LABS: Bacteria,Urine Many per hpf (None-Few); Hyaline Casts,Urine Few per lpf (None-Few); RBC,Urine 30-50 per hpf (0-3); Squamous Epithelial Cell,Urine Many per lpf (None-Few); WBC,Urine 30-50 per hpf (0-3)
[2018-01-26 00:57] LABS: Triple Phosphate Crystal,Urine Present
[2018-01-26] MEDS: Nitrofurantoin (BID) 100 MG CAPSULE PO SCH ×2 (01:58→16:00)
[2018-01-26] MEDS: Ertapenem 1,000 MG in 0.9 % Sodium Chloride Mini Bag 100 ML IVPB SCH (02:00)
[2018-01-26 02:38] LABS: Basophils # 0.1 K/mcL (0.0-0.2); Basophils % 0.5 %; Eosinophils # 0.4 K/mcL (0.0-0.6); Eosinophils % 2.7 %; Hematocrit 37.9 % (37.5-50.1); Immature Granulocytes % 0.6 % (0-4); Immature Platelets 4.4 % (1.1-6.1); Lymphocytes # 2.1 K/mcL (0.6-4.6); Lymphocytes % 13.7 %; Mean Corpuscular HGB Conc 31.4 g/dL (31.6-35.5); Mean Corpuscular Hemoglobin 25.5 pg (28.0-33.3); Mean Platelet Volume 10.3 fL (9.4-12.4); Monocytes # 0.9 K/mcL (0.0-1.3); Monocytes % 6.1 %; Neutrophils # 11.6 K/mcL (1.6-8.9); Platelet Count 359 K/mcL (140-400); Red Blood Count 4.67 M/mcL (4.19-5.50); Red Cell Distribution Width 16.7 % (11.5-14.5); Segmented Neutrophils % 76.4 %
[2018-01-26 02:42] LABS: Hemoglobin 11.9 g/dL (12.9-16.9); Mean Corpuscular Volume 81.2 fL (83.0-100.0)
[2018-01-26] MEDS: 0.9 % Sodium Chloride 1,000 ML IVC SCH ×4 (02:50→15:55)
[2018-01-26 02:53] LABS: Alanine Aminotransferase 15 Units/L (7-52); Albumin 3.9 g/dL (3.5-5.7); Alkaline Phosphatase 73 Units/L (34-104); Amylase 45 Units/L (29-103); Aspartate Amino Transferase 18 Units/L (13-39); BUN/Creatinine Ratio 22 (6-26); Bilirubin,Indirect 0.4 mg/dL (0.0-1.2); Bilirubin,Total 0.4 mg/dL (0.3-1.0); Blood Urea Nitrogen 23 mg/dL (6-20); Calcium 9.3 mg/dL (8.6-10.3); Carbon Dioxide 22 mEq/L (23-29); Chloride 100 mEq/L (98-107); Globulin 3.9 g/dL (2.4-3.5); Glucose 129 mg/dL (70-105); Lipase 26 Units/L (11-82); Osmolality,Calculated 277 (280-300); Potassium 4.1 mEq/L (3.5-5.1); Sodium 131 mEq/L (136-145); Total Protein 7.8 g/dL (6.4-8.9); eGFR For African Americans > 60 (> 60); eGFR For Non-African Americans > 60 (> 60)
[2018-01-26] MEDS ORDERED: 0.9 % Sodium Chloride 1,000 ML IVC ONE (02:56)
[2018-01-26 03:04] LABS: Bilirubin,Urine Negative (Negative); Blood,Urine Moderate (Negative); Clarity,Urine Clear (Clear); Color,Urine Yellow (Yellow); Glucose,Urine (UA) Normal (Normal); Ketones,Urine Negative (Negative); Leukocyte Esterase,Urine Moderate (Negative); Nitrite,Urine Negative (Negative); Protein,Urine Negative (Neg-Trace); Specific Gravity,Urine 1.018 (1.010-1.025); Urobilinogen,Urine Normal (Normal)
[2018-01-26 03:05] LABS: Bacteria,Urine None Seen per hpf (None-Few); Hyaline Casts,Urine Few per lpf (None-Few); Squamous Epithelial Cell,Urine Many per lpf (None-Few)
[2018-01-26] MEDS ORDERED: Acetaminophen 325 MG TABLET PO PRN (06:17)
[2018-01-26] MEDS ORDERED: Naloxone 0.4 MG/ML INJ IVP PRN (06:17)
[2018-01-26] MEDS ORDERED: *HR* HYDROcodone/Acet 5/325 mg TABLET PO PRN (06:24)
--- NOTE | 2018-01-26 06:32 | Internal Med History&Physical ---
Date of Encounter: 01/26/18 Time of Encounter: 06:15 Assessment and Plan (1) Skin inflammation at urostomy site Current visit: Yes Status: Acute 1. 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 2. Will place in isolation. 3. Will place on Zyvox and Invanz, which will cover organism from last wound culture. 4. Consult wound care. (2) UTI (urinary tract infection) Current visit: Yes Status: Acute 1. Will culture urine. 2. Place on IV antibiotics as above. 3. Patient has had recurrent UTI and complications with his urostomy since initial surgery. Patient will likely need outpatient urology follow up. Qualifiers: Urinary tract infection type: acute cystitis Hematuria presence: with hematuria Qualified Code(s): N30.01 - Acute cystitis with hematuria (3) DVT prophylaxis Current visit: No Status: Acute 1. Heparin SQ. Internal Medicine - H&P: HPI Chief complaint: urosotomy wound infection; hematuria; cough Admitted From: Emergency Dept Plans for Post Hospital Care: Home History of present illness: Mr. Leone is a 48 year old male who presents to the ER tonight with complaints of hematuria, wound infection of his urostomy site, and worsening cough. He was recently hospitalized for non-STEMI and influenza. He was discharged home last week and was improving. However, he developed a harsh and worsening cough for the last 2 days which has progressed. He's had increasing inflammation and irritation on his urostomy wound site. He also developed significant hematuria tonight prompting him to come the ER. He's had no fevers or chills. He has had no vomiting or diarrhea. Appetite is slowly improving. He denies any chest pain or shortness of breath. I reviewed old records and recent microbiology results. 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 He has had recurrent UTIs in the past. He has had urostomy in place for several years. He has a history of spina bifida and neurogenic bladder. Past Med Surg Social Fam HX - Past Medical History Attestation: Yes The following information was validated with the patient. Source: patient, old records reviewed, obtained from family Medical history: asthma, cancer, CHF, CVA, hyperlipidemia, hypertension, thyroid disease Psychiatric history: depression - Past Surgical History Surgical History: appendectomy, orthopedic, other (Hardware in the BLE), vasectomy, other (Cystectomy) - Social History Smoking Status: Never smoker Smokeless Tobacco Status: No Alcohol use: rarely Drug use: none Current living situation: Home, With Family Recent Out of Country Travel Within the Last 8 Weeks: No - Family History Mother Family Member Ethnicity: Non- Living Status: Still Living Hx Family Cardiac Disorders: Yes (HTN) Hx Family Endocrine Disorder: Yes (DM) Hx Family Neurologic Disorders: Yes (Dementia) Sister Family Member Ethnicity: Non- Living Status: Still Living Hx Family Cardiac Disorders: No Hx Family Respiratory Disorders: Yes Hx Family Cancer: No Hx Family GI Disorders: Yes Hx Family Endocrine Disorder: Yes Hx Family Neuromuscular Disorders: Yes Hx Family Neurologic Disorders: Yes Brother Family Member Ethnicity: Non- Living Status: Still Living Hx Family Cardiac Disorders: Yes (HTN) Father Family Member Ethnicity: Non- Living Status: Hx Family Cardiac Disorders: Yes (CHF, HTN) Hx Family Respiratory Disorders: Yes (Asthma, emphysema) Hx Family Cancer: Yes (Lung) Hx Family GI Disorders: No Hx Family Endocrine Disorder: Yes Hx Family Neuromuscular Disorders: No Hx Family Neurologic Disorders: No Hx Family HEENT Disorders: No Hx Family Autoimmune Disorders: No Internal Medicine - H&P: Meds Cholecalciferol (Vitamin D3) [Vitamin D3] 5,000 unit PO DAILY 11/12/16 [History] Fluticasone Propionate [Flovent Hfa] 1 - 2 puff IH BID 11/12/16 [History] Levothyroxine [Synthroid] 200 mcg PO DAILY 11/12/16 [History] Lactobacillus Acidophilus/Fos [Acidophilus Probiotic Tablet] 1 cap PO DAILY 06/17 [History] Loratadine [Claritin] 10 mg PO DAILY 03/08/17 [History] Multivitamin [One Daily Multivitamin] 1 tab PO DAILY 03/08/17 [History] Enalapril Maleate [Vasotec] 10 mg PO DAILY 03/23/17 [History] Omeprazole [PriLOSEC] 20 mg PO DAILY 08/25/17 [History] Atorvastatin [Lipitor] 40 mg PO HS 11/14/17 [History] Aspirin 81 mg PO DAILY #30 tab.chew 01/17/18 [Rx] Furosemide [Lasix] 40 mg PO DAILY 7 Days #7 tablet 01/17/18 [Rx] Metoprolol [Lopressor] 12.5 mg PO BID #30 tablet 01/17/18 [Rx] Ondansetron ODT [Zofran ODT] 4 mg SL Q6HR PRN #10 tab.rapdis 01/18/18 [Rx] Oseltamivir [Tamiflu] 75 mg PO Q12H #10 capsule 01/19/18 [Rx] 3 Allergy/AdvReac Type Severity Reaction Status Date / Time adhesive Allergy Blister Verified 12/10/17 21:23 Amoxicillin Allergy Hives Verified 12/10/17 21:23 Oxaprozin [From Daypro] AdvReac Diarrhea Verified 12/10/17 21:23 - Constitutional Constitutional: no chills, no fever(s), no night sweats - EENT Eyes: no blurry vision, no change in vision Ears: no ear pain, no tinnitus Nose, mouth and throat: nasal congestion, no nasal discharge, no sinus pressure , no sore throat - Cardiovascular Cardiovascular ROS IM: dyspnea, edema, no chest pain, no palpitations, no syncope - Respiratory Respiratory: cough, dyspnea, dyspnea on exertion, wheezing, chest congestion, no hemoptysis, no excessive phlegm production, no change in phlegm color, no pain with cough - Gastrointestinal Gastrointestinal: no abdominal pain, no cramping, no diarrhea, no hematemesis, no hematochezia, no melena, no vomiting - Genitourinary Genitourinary ROS male: hematuria, no dysuria, no flank pain - Musculoskeletal Musculoskeletal ROS IM: no back pain - Integumentary Integumentary IM: no rash, no jaundice - Neurological Neurological ROS: no disequilibrium, no dizziness, no focal weakness, no frequent falls, no headache(s) - Psychiatric Psychiatric: no anxiety, no depression - Endocrine Endocrine IM: no polydipsia, no polyuria - Hematologic/Lymphatic Hematologic/Lymphatic: easy bruising, no lymphadenopathy - Allergic/Immunologic Allergic/Immunologic: wheezing, no GI upset with certain foods - Constitutional Vitals: Temp Pulse Resp BP Pulse Ox 97.4 F L 95 20 104/48 95 01/25/18 23:39 01/26/18 04:03 01/26/18 04:03 01/26/18 04:03 01/26/18 04:03 General appearance: Present: cooperative, A&O X 3, pleasant, no acute distress - Head Head exam: Present: normal inspection - Eye Eye exam: Present: EOMI, normal appearance, PERRL. Absent: scleral icterus Pupils: Present: normal accommodation - ENT ENT exam: Present: mucous membranes dry, normal exam, normal oropharynx - Neck Neck exam general surgery: Present: full ROM, supple. Absent: lymphadenopathy, tenderness, nuchal rigidity - Respiratory Respiratory exam: Present: decreased breath sounds, rhonchi. Absent: chest wall tenderness, rales, respiratory distress, wheezes - Cardiovascular Cardiovascular exam: Present: RRR, +S1, +S2. Absent: diastolic murmur, systolic murmur - GI/Abdominal GI/Abdominal exam: Present: normal bowel sounds, soft, no peritoneal signs. Absent: hepatomegaly, rebound, splenomegaly, tenderness Additional comments: redness, inflammation along urostomy site on abdominal wall; clear urine in urostoy bag - Extremities Exam Extremities exam: Present: normal capillary refill, warm. Absent: calf tenderness, joint swelling, tenderness - Back Exam Back exam: Absent: CVA tenderness (L), CVA tenderness (R) - Neurological Exam Neurological exam: Present: alert, CN II-XII intact, oriented X3 - Psychiatric Psychiatric exam: Present: normal affect, normal mood - Skin Skin exam: Present: dry, excoriation (urostomy site), warm Internal Med - H&P Results - Labs CBC & Chem 7: 01/26/18 02:31 18 02:31 - Diagnostic Studies Chest x-ray Status: image reviewed by me (negative)
[2018-01-26] MEDS ORDERED: GuaiFENesin Liq 200 MG/10 ML UDC PO PRN (08:59)
[2018-01-26] MEDS: Aspirin 81 MG TAB.CHEW PO SCH (10:00)
--- NOTE | 2018-01-26 13:44 | Event Note ---
Date of Encounter: 01/26/18 Time of Encounter: 11:50 Complains of some tenderness urostomy site. Report of bleeding before but this has since stopped. Denies any chest pain or shortness of breath no other complaints at this time. Continue current antibiotics. Follow culture results.
[2018-01-26] MEDS ORDERED: Benzonatate 100 MG CAPSULE PO PRN (15:24)
[2018-01-26] MEDS: *HR* Heparin 5,000 UNIT/ML VIAL SQ SCH (17:09)
[2018-01-26] MEDS ORDERED: Beclomethasone 80mcg MDI IH SCH (21:00)
[2018-01-27] MEDS: Ertapenem 1,000 MG in 0.9 % Sodium Chloride Mini Bag 100 ML IVPB SCH (02:15)
[2018-01-27] MEDS: *HR* Heparin 5,000 UNIT/ML VIAL SQ SCH ×2 (06:08→17:03)
[2018-01-27 07:57] LABS: Basophils # 0.1 K/mcL (0.0-0.2); Eosinophils # 0.4 K/mcL (0.0-0.6); Eosinophils % 6.2 %; Hematocrit 32.1 % (37.5-50.1); Immature Granulocytes % 0.3 % (0-4); Lymphocytes # 1.6 K/mcL (0.6-4.6); Lymphocytes % 23.8 %; Mean Corpuscular HGB Conc 31.2 g/dL (31.6-35.5); Mean Corpuscular Hemoglobin 25.6 pg (28.0-33.3); Mean Corpuscular Volume 82.3 fL (83.0-100.0); Mean Platelet Volume 10.3 fL (9.4-12.4); Monocytes # 0.5 K/mcL (0.0-1.3); Monocytes % 7.5 %; Platelet Count 269 K/mcL (140-400); Red Cell Distribution Width 16.8 % (11.5-14.5); Segmented Neutrophils % 61.2 %
[2018-01-27 08:02] LABS: Prothrombin Time 10.7 Seconds (9.4-12.1)
[2018-01-27 08:05] LABS: Activated Partial Thrombo Time 28.2 Seconds (26.0-36.0)
[2018-01-27 08:07] LABS: Neutrophils # 4.2 K/mcL (1.6-8.9)
--- NOTE | 2018-01-27 08:09 | Internal Med Progress Note ---
Date of Encounter: 01/27/18 Time of Encounter: 11:10 - Assessment and plan (1) UTI (urinary tract infection) Current Visit: Yes Status: Acute Assessment and plan: Awaiting urine culture results. Will change antibiotics to cefepime and Zyvox based on prior culture results. Stop Macrobid and ertapenem for now. Moderate risk for complications. Qualifiers: Urinary tract infection type: acute cystitis Hematuria presence: with hematuria Qualified Code(s): N30.01 - Acute cystitis with hematuria (2) Skin inflammation at urostomy site Current Visit: Yes Status: Acute Assessment and plan: Resolving. Continue local wound care. Wound consult ordered. (3) Diastolic CHF, chronic Current Visit: Yes Status: Chronic Assessment and plan: Chronic congestive heart failure. Continue Lasix. Not in acute exacerbation (4) Pressure ulcer Current Visit: Yes Status: Chronic Assessment and plan: Patient has multiple decubitus ulcers invading stages on coccyx and gluteal regions. These are chronic and stable. Continue local wound care. Decubitus ulcer precautions. Qualifiers: Pressure ulcer location: other site Pressure ulcer stage: unspecified pressure ulcer stage Qualified Code(s): L89.899 - Pressure ulcer of other site , unspecified stage (5) DVT prophylaxis Current Visit: Yes Status: Acute Assessment and plan: With subcutaneous heparin - Subjective Interval history: Patient is doing better today. No longer having hematuria. Tolerating diet well. No nausea or vomiting. Cough is improving. - Constitutional Vitals: Temp Pulse Resp BP Pulse Ox 97.9 F 78 17 117/76 97 01/27/18 06:40 01/27/18 06:40 01/27/18 06:40 01/27/18 06:40 01/27/18 06:40 General appearance: Present: cooperative, A&O X 3, pleasant, no acute distress - Neck Neck exam general surgery: Present: supple, trachea midline. Absent: lymphadenopathy - Respiratory Respiratory exam: Present: CTAB. Absent: accessory muscle use, rales, rhonchi, wheezes - Cardiovascular Cardiovascular exam: Present: RRR, +S1, +S2. Absent: diastolic murmur, gallop, rubs, systolic murmur - GI/Abdominal GI/Abdominal exam: Present: normal bowel sounds, soft, no peritoneal signs. Absent: distended, tenderness Additional comments: Urostomy in place. No bleeding around the urostomy site. - Extremities Exam Extremities exam: Present: warm, radial pulses palpable and symmetrical. Absent : calf tenderness, cyanotic, pedal edema - Neurological Exam Neurological exam: Present: alert, oriented X3, no focal deficits. Absent: speech deficit - Skin Skin exam: Present: dry, intact Internal Medicine: Result - Labs CBC & Chem 7: 01/27/18 07:32 01/27/18 07:32 - VTE Documentation of Mechanical Device: Graduated compression elastic hosiery Consult Discharge Plan - Plan Referrals: Maria Elena An MD [Primary Care Provider] - 01/31/18 10:45 am (Please follow up as schedule...)
[2018-01-27] MEDS: Aspirin 81 MG TAB.CHEW PO SCH (08:15)
[2018-01-27] MEDS: Furosemide 40 MG TABLET PO SCH (08:15)
[2018-01-27] MEDS: Lactobacillus 1 EACH CAP.SPRINK PO SCH (08:16)
[2018-01-27] MEDS: Nitrofurantoin (BID) 100 MG CAPSULE PO SCH (08:16)
[2018-01-27] MEDS: Multivit/Ca/Min/Fe/FA 1 TAB TABLET PO SCH (08:16)
[2018-01-27] MEDS: Loratadine 10 MG TABLET PO SCH (08:17)
[2018-01-27] MEDS: Lisinopril 20 MG TABLET PO SCH (08:18)
[2018-01-27] MEDS: Cholecalciferol (D-3) 1,000 UNIT TABLET PO SCH (08:19)
[2018-01-27 08:28] LABS: Alanine Aminotransferase 11 Units/L (7-52); Albumin 3.5 g/dL (3.5-5.7); Albumin/Globulin Ratio 1.1 (1.1-2.2); Alkaline Phosphatase 65 Units/L (34-104); Aspartate Amino Transferase 13 Units/L (13-39); BUN/Creatinine Ratio 18 (6-26); Bilirubin,Total 0.3 mg/dL (0.3-1.0); Blood Urea Nitrogen 17 mg/dL (6-20); Carbon Dioxide 23 mEq/L (23-29); Chloride 105 mEq/L (98-107); Globulin 3.3 g/dL (2.4-3.5); Glucose 133 mg/dL (70-105); Magnesium 1.7 mg/dL (1.6-2.6); Osmolality,Calculated 283 (280-300); Sodium 135 mEq/L (136-145); Total Protein 6.8 g/dL (6.4-8.9); eGFR For African Americans > 60 (> 60); eGFR For Non-African Americans > 60 (> 60)
[2018-01-27] MEDS: Beclomethasone 80mcg MDI IH SCH ×2 (11:09→20:59)
[2018-01-27] MEDS ORDERED: Cefepime HCl 2,000 MG in Water for inj. (sterile) 20 ML IVP SCH (18:00)
[2018-01-27] MEDS: Cefepime HCl 2,000 MG in Water for inj. (sterile) 20 ML 20 ML IVP SCH (18:20)
[2018-01-28] MEDS: *HR* Heparin 5,000 UNIT/ML VIAL SQ SCH ×2 (05:44→18:15)
[2018-01-28] MEDS: Cefepime HCl 2,000 MG in Water for inj. (sterile) 20 ML 20 ML IVP SCH ×2 (05:45→18:15)
[2018-01-28] MEDS: Beclomethasone 80mcg MDI IH SCH ×2 (07:42→21:41)
[2018-01-28] MEDS: Lisinopril 20 MG TABLET PO SCH (08:54)
[2018-01-28] MEDS: Cholecalciferol (D-3) 1,000 UNIT TABLET PO SCH (08:54)
[2018-01-28] MEDS: Multivit/Ca/Min/Fe/FA 1 TAB TABLET PO SCH (08:55)
[2018-01-28] MEDS: Lactobacillus 1 EACH CAP.SPRINK PO SCH (08:56)
[2018-01-28] MEDS: Aspirin 81 MG TAB.CHEW PO SCH (08:56)
[2018-01-28] MEDS: Loratadine 10 MG TABLET PO SCH (08:56)
[2018-01-28] MEDS: Furosemide 40 MG TABLET PO SCH (08:56)
[2018-01-28 09:29] LABS: Basophils # 0.1 K/mcL (0.0-0.2); Basophils % 0.8 %; Eosinophils # 0.4 K/mcL (0.0-0.6); Eosinophils % 4.4 %; Hemoglobin 11.1 g/dL (12.9-16.9); Immature Granulocytes % 0.6 % (0-4); Lymphocytes # 1.4 K/mcL (0.6-4.6); Lymphocytes % 18.3 %; Mean Corpuscular HGB Conc 30.8 g/dL (31.6-35.5); Mean Corpuscular Hemoglobin 25.3 pg (28.0-33.3); Mean Platelet Volume 10.4 fL (9.4-12.4); Monocytes # 0.6 K/mcL (0.0-1.3); Monocytes % 7.5 %; Neutrophils # 5.4 K/mcL (1.6-8.9); Platelet Count 329 K/mcL (140-400); Red Blood Count 4.39 M/mcL (4.19-5.50); Red Cell Distribution Width 16.9 % (11.5-14.5); Segmented Neutrophils % 68.4 %
[2018-01-28 09:48] LABS: BUN/Creatinine Ratio 18 (6-26); Blood Urea Nitrogen 17 mg/dL (6-20); Calcium 9.4 mg/dL (8.6-10.3); Carbon Dioxide 25 mEq/L (23-29); Chloride 102 mEq/L (98-107); Glucose 136 mg/dL (70-105); Osmolality,Calculated 284 (280-300); Potassium 4.5 mEq/L (3.5-5.1); Sodium 135 mEq/L (136-145); eGFR For African Americans > 60 (> 60); eGFR For Non-African Americans > 60 (> 60)
--- NOTE | 2018-01-28 18:02 | Internal Med Progress Note ---
Date of Encounter: 01/28/18 Time of Encounter: 11:00 - Assessment and plan (1) UTI (urinary tract infection) Current Visit: Yes Status: Acute Assessment and plan: Awaiting urine culture results. Will continue antibiotics to cefepime and Vanc Qualifiers: Urinary tract infection type: acute cystitis Hematuria presence: with hematuria Qualified Code(s): N30.01 - Acute cystitis with hematuria (2) Skin inflammation at urostomy site Current Visit: Yes Status: Acute Assessment and plan: Improving Continue local wound care. Wound consult ordered. (3) Pressure ulcer Current Visit: Yes Status: Chronic Assessment and plan: Patient has multiple decubitus ulcers invading stages on coccyx and gluteal regions which are chronic and stable. Continue local wound care. Qualifiers: Pressure ulcer location: other site Pressure ulcer stage: unspecified pressure ulcer stage Qualified Code(s): L89.899 - Pressure ulcer of other site , unspecified stage (4) DVT prophylaxis Current Visit: Yes Status: Acute Assessment and plan: subcutaneous heparin - Subjective Interval history: Patient with some improvement in cellulitis surrounding urostomy Continuing IV antibiotics for acute cystitis growing Staphylococcus aureus and Pseudomonas - Constitutional Vitals: Temp Pulse Resp BP Pulse Ox 98.1 F 91 15 127/79 95 01/28/18 17:50 01/28/18 17:50 01/28/18 17:50 01/28/18 17:50 01/28/18 17:50 General appearance: Present: cooperative, A&O X 3, pleasant, no acute distress - Respiratory Respiratory exam: Present: CTAB. Absent: accessory muscle use, rales, rhonchi, wheezes - Cardiovascular Cardiovascular exam: Present: RRR, +S1, +S2. Absent: diastolic murmur, gallop, rubs, systolic murmur - Skin Skin exam: Present: erythema (Skin surrounding the urostomy site with decrease) Internal Medicine: Result - Labs CBC & Chem 7: 01/28/18 09:12 01/28/18 09:12 Labs: Short CBC 01/28/18 Range/Units 09:12 WBC 7.9 (4.3-11.1) K/mcL Hgb 11.1 L (12.9-16.9) g/dL Hct 36.0 L (37.5-50.1) % Plt Count 329 (140-400) K/mcL Neutrophils # 5.4 (1.6-8.9) K/mcL BMP 01/28/18 09:12 Sodium 135 L Potassium 4.5 Chloride 102 Carbon Dioxide 25 BUN 17 Creatinine 0.93 Glucose 136 H Calcium 9.4 - ABG Interpretation ABG results: PT/INR, D-dimer PT 10.7 Seconds (9.4-12.1) 01/27/18 07:32 - VTE Documentation of Mechanical Device: Graduated compression elastic hosiery Consult Discharge Plan - Plan Referrals: Maria Elena An MD [Primary Care Provider] - 01/31/18 10:45 am (Please follow up as schedule...)
[2018-01-28] MEDS ORDERED: Linezolid 600 MG TABLET PO SCH (21:00)
[2018-01-29] MEDS: Cefepime HCl 2,000 MG in Water for inj. (sterile) 20 ML 20 ML IVP SCH ×2 (05:49→18:35)
[2018-01-29] MEDS: *HR* Heparin 5,000 UNIT/ML VIAL SQ SCH ×2 (05:49→18:35)
[2018-01-29] MEDS: Beclomethasone 80mcg MDI IH SCH ×2 (08:39→22:08)
[2018-01-29] MEDS: Lactobacillus 1 EACH CAP.SPRINK PO SCH (09:24)
[2018-01-29] MEDS: Aspirin 81 MG TAB.CHEW PO SCH (09:25)
[2018-01-29] MEDS: Cholecalciferol (D-3) 1,000 UNIT TABLET PO SCH (09:25)
[2018-01-29] MEDS: Furosemide 40 MG TABLET PO SCH (09:25)
[2018-01-29] MEDS: Lisinopril 20 MG TABLET PO SCH (09:25)
[2018-01-29] MEDS: Loratadine 10 MG TABLET PO SCH (09:25)
[2018-01-29] MEDS: Multivit/Ca/Min/Fe/FA 1 TAB TABLET PO SCH (09:25)
[2018-01-29 11:00] LABS: Basophils # 0.1 K/mcL (0.0-0.2); Basophils % 0.7 %; Eosinophils # 0.4 K/mcL (0.0-0.6); Eosinophils % 4.7 %; Hematocrit 35.8 % (37.5-50.1); Hemoglobin 11.1 g/dL (12.9-16.9); Immature Granulocytes % 1.2 % (0-4); Lymphocytes # 1.6 K/mcL (0.6-4.6); Lymphocytes % 16.6 %; Mean Corpuscular Hemoglobin 25.5 pg (28.0-33.3); Mean Corpuscular Volume 82.3 fL (83.0-100.0); Mean Platelet Volume 11.4 fL (9.4-12.4); Monocytes # 0.6 K/mcL (0.0-1.3); Monocytes % 6.1 %; Neutrophils # 6.6 K/mcL (1.6-8.9); Platelet Count 309 K/mcL (140-400); Red Blood Count 4.35 M/mcL (4.19-5.50); Red Cell Distribution Width 17.2 % (11.5-14.5); Segmented Neutrophils % 70.7 %
[2018-01-29 11:15] LABS: BUN/Creatinine Ratio 19 (6-26); Blood Urea Nitrogen 23 mg/dL (6-20); Calcium 9.3 mg/dL (8.6-10.3); Carbon Dioxide 27 mEq/L (23-29); Chloride 103 mEq/L (98-107); Glucose 136 mg/dL (70-105); Osmolality,Calculated 288 (280-300); Potassium 4.8 mEq/L (3.5-5.1); Sodium 136 mEq/L (136-145); eGFR For African Americans > 60 (> 60); eGFR For Non-African Americans > 60 (> 60)
--- NOTE | 2018-01-29 18:15 | Internal Med Progress Note ---
Date of Encounter: 01/29/18 Time of Encounter: 11:00 - Assessment and plan (1) UTI (urinary tract infection) Current Visit: Yes Status: Acute Assessment and plan: -Awaiting urine culture results; known sensitivities for Pseudomonas proteinosis and AMBROSE a but not for a third colony organisms which are gram- negative rods -Will consult infectious disease for recommendations for antibiotic selection and duration -Will continue antibiotics to cefepime and Vanc for now Qualifiers: Urinary tract infection type: acute cystitis Hematuria presence: with hematuria Qualified Code(s): N30.01 - Acute cystitis with hematuria (2) Skin inflammation at urostomy site Current Visit: Yes Status: Acute Assessment and plan: Improving Continue local wound care. Wound consult ordered. (3) Pressure ulcer Current Visit: Yes Status: Chronic Assessment and plan: Patient has multiple decubitus ulcers invading stages on coccyx and gluteal regions which are chronic and stable. Continue local wound care. Qualifiers: Pressure ulcer location: other site Pressure ulcer stage: unspecified pressure ulcer stage Qualified Code(s): L89.899 - Pressure ulcer of other site , unspecified stage (4) DVT prophylaxis Current Visit: Yes Status: Acute Assessment and plan: subcutaneous heparin - Subjective Interval history: Patient with continued improvement in cellulitis surrounding urostomy Continuing IV antibiotics for acute cystitis growing Staphylococcus aureus and Pseudomonas - Constitutional Vitals: Temp Pulse Resp BP Pulse Ox 98.9 F 85 16 112/72 95 01/29/18 15:16 01/29/18 15:16 01/29/18 15:16 01/29/18 15:16 01/29/18 15:16 General appearance: Present: cooperative, A&O X 3, pleasant, no acute distress - Respiratory Respiratory exam: Present: CTAB. Absent: accessory muscle use, rales, rhonchi, wheezes - Cardiovascular Cardiovascular exam: Present: RRR, +S1, +S2. Absent: diastolic murmur, gallop, rubs, systolic murmur - Psychiatric Psychiatric exam: Present: normal mood Internal Medicine: Result - Labs CBC & Chem 7: 01/29/18 10:22 01/29/18 10:22 Labs: Short CBC 01/29/18 Range/Units 10:22 WBC 9.4 (4.3-11.1) K/mcL Hgb 11.1 L (12.9-16.9) g/dL Hct 35.8 L (37.5-50.1) % Plt Count 309 (140-400) K/mcL Neutrophils # 6.6 (1.6-8.9) K/mcL BMP 01/29/18 10:22 Sodium 136 Potassium 4.8 Chloride 103 Carbon Dioxide 27 BUN 23 H Creatinine 1.23 Glucose 136 H Calcium 9.3 - ABG Interpretation ABG results: PT/INR, D-dimer PT 10.7 Seconds (9.4-12.1) 01/27/18 07:32 - VTE Documentation of Mechanical Device: Graduated compression elastic hosiery Consult Discharge Plan - Plan Referrals: Maria Elena An MD [Primary Care Provider] - 01/31/18 10:45 am (Please follow up as schedule...)
[2018-01-30] MEDS: Cefepime HCl 2,000 MG in Water for inj. (sterile) 20 ML 20 ML IVP SCH (05:03)
[2018-01-30] MEDS: *HR* Heparin 5,000 UNIT/ML VIAL SQ SCH ×2 (05:03→17:42)
[2018-01-30] MEDS: Beclomethasone 80mcg MDI IH SCH ×2 (07:58→20:10)
[2018-01-30] MEDS ORDERED: Aminoglycoside Consult 1 EACH MC ONE (08:38)
--- NOTE | 2018-01-30 11:24 | Infectious Disease Consult ---
Date of Encounter: 01/30/18 Time of Encounter: 11:15 Assessment and Plan (1) Sepsis Status: Acute Assessment and plan: The patient had two SIRS criteria on admission. Etiology unclear: UTI vs. infection of abdominal wound. Resolved. Leukocytosis and tachycardia have resolved. The patient has been afebrile. Blood cultures drawn 01/26/18 are negative 2/2 sets. Qualifiers: Sepsis type: sepsis due to unspecified organism Qualified Code(s): A41.9 - Sepsis, unspecified organism (2) Bacteriuria Status: Acute Assessment and plan: Urine culture positive for Pseudomonas, MRSA, and Achromobacter xylosoxidans. Per the patient, the urine that was sent for culture was obtained from the urostomy bag after a new one was placed. Per the patient, the blood in his urine was coming from one of the wounds under his ostomy wafer and not the urostomy itself. The patient has spina bifida which limits his ability to report urinary symptoms , but he states he did not notice any change in the color/clarity/odor of his urine prior to presentation. Continue Vancomycin IV. Pharmacy to dose. Goal trough ~15. Continue Cefepime 2 grams IV Q12H. Monitor renal function and for drug toxicity and dose-adjust antibiotics. Duration of treatment depends on the clinical picture, but likely a total of 7 days. Can likely switch to PO Bactrim and Levaquin when ready for discharge. Treat through 01/31/18. The infectious disease team will be unavailable for inpatient consults until 02/03, but will be available by phone. Please call with ID-related questions. (3) Open abdominal wall wound Status: Acute Assessment and plan: Per the patient, he developed acute bleeding from the wound under his ostomy wafer. No wound cultures obtained. Wound and ostomy nurse consulted and following. Qualifiers: Encounter type: initial encounter Qualified Code(s): S31.109A - Unspecified open wound of abdominal wall, unspecified quadrant without penetration into peritoneal cavity, initial encounter (4) Morbid obesity with BMI of 40.0-44.9, adult Status: Chronic (5) Bladder cancer Status: Resolved Assessment and plan: Remote history of cystectomy with urostomy. Qualifiers: Bladder location: unspecified site Qualified Code(s): C67.9 - Malignant neoplasm of bladder, unspecified (6) Bilateral lower extremity edema Status: Chronic Assessment and plan: Chronic. Follows with wound care and is currently wearing BLE compression dressings. Infectious Disease HPI - Data of Consult Patient: known to practice within the last 3 years Consult date: 01/30/18 Requesting Physician: Danny Chapman Primary Care Provider: Maria Elena An - Consult Narrative Reason for consult: UTI History of present illness: Mr. Leone is a 48 year old male with a past medical history of asthma, bladder cancer with cystectomy and urostomy, CHF, CVA, hyperlipidemia, hypertension, and hypothyroidism. The patient was admitted to the hospital January 26 for sepsis and hematuria. We are consulted January 30 for antibiotic recommendations for UTI. Briefly, the patient is a 48-year-old male, well-known to the infectious disease service as we have been consulted on his case multiple times. The patient has a long-standing history of recurrent bilateral lower extremity ulcers secondary to venous stasis and edema. Additionally, the patient has an altered system secondary to a previous cystectomy with urostomy and has had multiple urinary tract infections. He is also had issues with skin breakdown under the urostomy wafer and has had multiple issues with urine leaking. Most recently, the patient states that on the day of admission he began to experience acute bleeding from one of the ulcerations under his urostomy wafer. He states that he was in his usual state of health up until then. He presented to the emergency department for further evaluation. Upon arrival, the patient was tachycardic and have leukocytosis, but was otherwise hemodynamically stable. He had a chest x-ray and a CT the abdomen and pelvis that were negative. Blood cultures were obtained 2 sets are no growth to date. A urinalysis was obtained from his original urostomy bag that appeared contaminated. A new urostomy bag was applied and a new urine specimen was obtained that grew out pseudomonas, MRSA, and Achromobacter xylosoxidans. She was originally started on IV meropenem and IV Zyvox. He was de-escalate her to IV Vanco and cefepime, which she is on now. We have been asked to evaluate and make further recommendations. Since admission, the patient's sepsis has resolved. He has remained afebrile. He was evaluated by the wound/ostomy nurse and the bleeding of the ulceration has stopped. There were no wound cultures obtained. During my exam today, the patient states that overall he feels better. He states he was in his usual state of health up until the day he presented to the emergency department and his only complaint upon arrival was hematuria. He denied any fevers or chills. He denied any chest pain, shortness of breath. He reports a chronic nonproductive cough. He denied any nausea, vomiting, diarrhea, or constipation. He states that the blood in his urine appeared to be coming from the wound rather than and the urostomy. He denied any changes in his urine output or the color/clarity/odor of his urine prior to the bleeding starting. He denies any pain in his back. He reports chronic pain in his bilateral lower extremities. He follows with the wound care clinic and wears compression dressings to his bilateral lower extremities at all times. The patient lives at home with his family. He ambulates with the use of crutches. He denies any tobacco, alcohol, or illicit drug use. CC: Danny Chapman Past Med Surg Social Fam HX - Past Medical History Attestation: Yes The following information was validated with the patient. Source: patient, old records reviewed, nursing notes reviewed Medical history: asthma, cancer, CHF, CVA, hyperlipidemia, hypertension, thyroid disease Psychiatric history: depression - Past Surgical History Surgical History: appendectomy, orthopedic, other (Hardware in the BLE), vasectomy, other (Cystectomy) - Social History Smoking Status: Never smoker Smokeless Tobacco Status: No Alcohol use: rarely Drug use: none Occupational status: disabled Current living situation: Home, With Family Activity Level: Uses cane/walker Recent Out of Country Travel Within the Last 8 Weeks: No Exposure or Possible Exposure to Illness During Travel: No - Family History Mother Family Member Ethnicity: Non- Living Status: Still Living Hx Family Cardiac Disorders: Yes (HTN) Hx Family Endocrine Disorder: Yes (DM) Hx Family Neurologic Disorders: Yes (Dementia) Sister Family Member Ethnicity: Non- Living Status: Still Living Hx Family Cardiac Disorders: No Hx Family Respiratory Disorders: Yes Hx Family Cancer: No Hx Family GI Disorders: Yes Hx Family Endocrine Disorder: Yes Hx Family Neuromuscular Disorders: Yes Hx Family Neurologic Disorders: Yes Brother Family Member Ethnicity: Non- Living Status: Still Living Hx Family Cardiac Disorders: Yes (HTN) Father Family Member Ethnicity: Non- Living Status: Cause of : 65 Hx Family Cardiac Disorders: Yes (CHF, HTN) Hx Family Respiratory Disorders: Yes (Asthma, emphysema) Hx Family Cancer: Yes (Lung) Hx Family GI Disorders: No Hx Family Endocrine Disorder: Yes Hx Family Neuromuscular Disorders: No Hx Family Neurologic Disorders: No Hx Family HEENT Disorders: No Hx Family Autoimmune Disorders: No Infectious Disease-CN:Meds Cholecalciferol (Vitamin D3) [Vitamin D3] 5,000 unit PO DAILY 11/12/16 [History] Fluticasone Propionate [Flovent Hfa] 1 - 2 puff IH BID 11/12/16 [History] Levothyroxine [Synthroid] 200 mcg PO DAILY 11/12/16 [History] Lactobacillus Acidophilus/Fos [Acidophilus Probiotic Tablet] 1 cap PO DAILY 06/17 [History] Loratadine [Claritin] 10 mg PO DAILY 03/08/17 [History] Multivitamin [One Daily Multivitamin] 1 tab PO DAILY 03/08/17 [History] Enalapril Maleate [Vasotec] 10 mg PO DAILY 03/23/17 [History] Omeprazole [PriLOSEC] 20 mg PO DAILY 08/25/17 [History] Atorvastatin [Lipitor] 40 mg PO HS 11/14/17 [History] Aspirin 81 mg PO DAILY #30 tab.chew 01/17/18 [Rx] Furosemide [Lasix] 40 mg PO DAILY 7 Days #7 tablet 01/17/18 [Rx] Metoprolol [Lopressor] 12.5 mg PO BID #30 tablet 01/17/18 [Rx] 3 Allergy/AdvReac Type Severity Reaction Status Date / Time adhesive Allergy Blister Verified 12/10/17 21:23 Amoxicillin Allergy Hives Verified 12/10/17 21:23 Oxaprozin [From Daypro] AdvReac Diarrhea Verified 12/10/17 21:23 All systems: reviewed and no additional remarkable complaints except as stated Exam - Constitutional Vitals: Temp Pulse Resp BP Pulse Ox 98.3 F 85 16 102/66 96 01/30/18 07:44 01/30/18 07:44 01/30/18 07:58 01/30/18 07:44 01/30/18 07:58 General appearance: cooperative, no acute distress, obese - Head Head exam: Present: atraumatic, normal inspection, normocephalic - Eye Eye exam: Present: EOMI, normal appearance, PERRL Pupils: Present: normal accommodation - ENT Additional comments: Very poor dentition noted. - Neck Neck exam: Present: normal inspection - Respiratory Respiratory exam: Present: CTAB. Absent: rales, respiratory distress, rhonchi, wheezes - Cardiovascular Cardiovascular exam: Present: RRR, +S1, +S2 - GI/Abdominal GI/Abdominal exam: Present: distended (obese), normal bowel sounds, soft. Absent: tenderness Additional comments: Urostomy noted to the RLQ with clear yellow urine noted. Unable to assess wounds due to the presence of the ostomy wafer. - Extremities Exam Extremities exam: Present: pedal edema (Compression dresssings noted to the BLE. ). Absent: tenderness - Neurological Exam Neurological exam: Present: alert, oriented X3, no focal deficits - Psychiatric Psychiatric exam: Present: normal affect, normal mood - Skin Skin exam: Present: dry, intact, normal color, warm Infectious Disease CN: Results - Labs CBC & Chem 7: 01/30/18 11:00 01/30/18 11:00 Cultures: Cultures 01/26/18 02:55 Urine Culture - Final Urine,[place] Pseudomonas aeruginosa Methicillin Resistant S.aureus Achromobacter xylosoxidans 01/26/18 00:56 Blood Culture - Preliminary Peripheral Venipuncture No growth. 01/26/18 00:57 Blood Culture - Preliminary Peripheral Venipuncture No growth. - VTE Documentation of Mechanical Device: Graduated compression elastic hosiery Consult Discharge Plan - Plan Referrals: Maria Elena An MD [Primary Care Provider] - 02/07/18 10:45 am (Please follow up as schedule...) - Attending Attestation I examined this patient and my medical decision-making was reviewed with the Resident Physician. I agree with the documented findings, disposition and treatment plan as described except to the extent set forth below. This is an addendum to original report dictated by Amie Dockery CNP. Please refer to Carrol burgess for full detail. Patient is a 48-year-old gentleman who is well-known to our service who has had a urostomy tube for about 7 years now status post cystectomy and urostomy, history of CVA who came in on January 26 with sepsis and hematuria. Workup revealed the patient had acute bleeding from one of the ulcerations under the urostomy wafer. Cultures were obtained from the blood which were negative and from the urine which revealed MRSA, pseudomonas aeruginosa and achromobacter xylosoxidans.. Patient was started on broad-spectrum antibiotics we were consulted to evaluate the patient and make further recommendations. Currently patient very comfortable lying in bed with no acute distress. Patient does not appear toxic. At this point patient is doing well anything we can switch him to oral antibiotics. I think the combination of Bactrim and levofloxacin with cover all 3 organisms that have grown. Duration of treatment 14 days Monitor labs and for drug toxicity Follow-up with us when necessary.
[2018-01-30 11:28] LABS: Basophils # 0.1 K/mcL (0.0-0.2); Basophils % 0.7 %; Eosinophils # 0.4 K/mcL (0.0-0.6); Eosinophils % 4.5 %; Hematocrit 36.7 % (37.5-50.1); Hemoglobin 11.4 g/dL (12.9-16.9); Immature Granulocytes % 0.8 % (0-4); Lymphocytes # 1.6 K/mcL (0.6-4.6); Lymphocytes % 16.8 %; Mean Corpuscular HGB Conc 31.1 g/dL (31.6-35.5); Mean Corpuscular Hemoglobin 25.4 pg (28.0-33.3); Mean Corpuscular Volume 81.9 fL (83.0-100.0); Mean Platelet Volume 11.3 fL (9.4-12.4); Monocytes # 0.7 K/mcL (0.0-1.3); Monocytes % 7.2 %; Neutrophils # 6.8 K/mcL (1.6-8.9); Nucleated Red Blood Cells 0.2 /100 WBC (0); Platelet Count 353 K/mcL (140-400); Red Blood Count 4.48 M/mcL (4.19-5.50); Red Cell Distribution Width 17.3 % (11.5-14.5)
[2018-01-30] MEDS: Multivit/Ca/Min/Fe/FA 1 TAB TABLET PO SCH (11:30)
[2018-01-30] MEDS: Lactobacillus 1 EACH CAP.SPRINK PO SCH (11:30)
[2018-01-30] MEDS: Aspirin 81 MG TAB.CHEW PO SCH (11:30)
[2018-01-30] MEDS: Loratadine 10 MG TABLET PO SCH (11:30)
[2018-01-30] MEDS: Cholecalciferol (D-3) 1,000 UNIT TABLET PO SCH (11:31)
[2018-01-30] MEDS: Lisinopril 20 MG TABLET PO SCH (11:31)
[2018-01-30] MEDS: Furosemide 40 MG TABLET PO SCH (11:31)
[2018-01-30 11:39] LABS: BUN/Creatinine Ratio 22 (6-26); Blood Urea Nitrogen 20 mg/dL (6-20); Calcium 9.5 mg/dL (8.6-10.3); Carbon Dioxide 27 mEq/L (23-29); Chloride 102 mEq/L (98-107); Glucose 126 mg/dL (70-105); Osmolality,Calculated 286 (280-300); Potassium 4.8 mEq/L (3.5-5.1); Sodium 136 mEq/L (136-145); eGFR For African Americans > 60 (> 60); eGFR For Non-African Americans > 60 (> 60)
[2018-01-30] MEDS: Nystatin POWDER 30 GM BOTTLE TP SCH (16:00)
[2018-01-30] MEDS ORDERED: levoFLOXacin 750 MG TABLET PO SCH (18:00)
--- NOTE | 2018-01-30 18:25 | Internal Med Progress Note ---
Date of Encounter: 01/30/18 Time of Encounter: 11:00 - Assessment and plan (1) UTI (urinary tract infection) Current Visit: Yes Status: Acute Assessment and plan: -Patient's disease consult for recommendations to continue Vancomycin IV. Pharmacy to dose. Goal trough ~15. -Further recommendations to Continue Cefepime 2 grams IV Q12H. Qualifiers: Urinary tract infection type: acute cystitis Hematuria presence: with hematuria Qualified Code(s): N30.01 - Acute cystitis with hematuria (2) Skin inflammation at urostomy site Current Visit: Yes Status: Acute Assessment and plan: Improving Continue local wound care. Wound consult ordered. (3) Pressure ulcer Current Visit: Yes Status: Chronic Assessment and plan: Patient has multiple decubitus ulcers invading stages on coccyx and gluteal regions which are chronic and stable. Continue local wound care. Qualifiers: Pressure ulcer location: other site Pressure ulcer stage: unspecified pressure ulcer stage Qualified Code(s): L89.899 - Pressure ulcer of other site , unspecified stage (4) DVT prophylaxis Current Visit: Yes Status: Acute Assessment and plan: subcutaneous heparin - Subjective Interval history: Patient with continued improvement in cellulitis surrounding urostomy Continuing IV antibiotics for acute cystitis growing Staphylococcus aureus and Pseudomonas Infectious disease has been consult for recommendations of antibiotic therapy and duration - Constitutional Vitals: Temp Pulse Resp BP Pulse Ox 97.9 F 93 16 122/71 93 01/30/18 16:31 01/30/18 16:31 01/30/18 16:31 01/30/18 16:31 01/30/18 16:31 General appearance: Present: cooperative, A&O X 3, pleasant, no acute distress - Respiratory Respiratory exam: Present: CTAB. Absent: accessory muscle use, rales, rhonchi, wheezes - Cardiovascular Cardiovascular exam: Present: RRR, +S1, +S2. Absent: diastolic murmur, gallop, rubs, systolic murmur - Skin Skin exam: Present: erythema (Decreased erythema surrounding the urostomy site) Internal Medicine: Result - Labs CBC & Chem 7: 01/30/18 11:00 01/30/18 11:00 Labs: Short CBC 01/30/18 Range/Units 11:00 WBC 9.7 (4.3-11.1) K/mcL Hgb 11.4 L (12.9-16.9) g/dL Hct 36.7 L (37.5-50.1) % Plt Count 353 (140-400) K/mcL Neutrophils # 6.8 (1.6-8.9) K/mcL BMP 01/30/18 11:00 Sodium 136 Potassium 4.8 Chloride 102 Carbon Dioxide 27 BUN 20 Creatinine 0.89 Glucose 126 H Calcium 9.5 - ABG Interpretation ABG results: PT/INR, D-dimer PT 10.7 Seconds (9.4-12.1) 01/27/18 07:32 - VTE Documentation of Mechanical Device: Graduated compression elastic hosiery Consult Discharge Plan - Plan Referrals: Maria Elena An MD [Primary Care Provider] - 02/07/18 10:45 am (Please follow up as schedule...)
[2018-01-30] MEDS: Sulfamethoxazole/Trimeth DS 1 EACH TABLET PO SCH (20:04)
[2018-01-31] MEDS: Nystatin POWDER 30 GM BOTTLE TP SCH ×2 (00:55→11:35)
[2018-01-31] MEDS: *HR* Heparin 5,000 UNIT/ML VIAL SQ SCH (06:17)
[2018-01-31] MEDS: Beclomethasone 80mcg MDI IH SCH (08:38)
[2018-01-31 11:05] VITALS: BP 110/72
[2018-01-31] MEDS: Sulfamethoxazole/Trimeth DS 1 EACH TABLET PO SCH (11:32)
[2018-01-31] MEDS: Multivit/Ca/Min/Fe/FA 1 TAB TABLET PO SCH (11:32)
[2018-01-31] MEDS: Furosemide 40 MG TABLET PO SCH (11:33)
[2018-01-31] MEDS: Lisinopril 20 MG TABLET PO SCH (11:33)
[2018-01-31] MEDS: Loratadine 10 MG TABLET PO SCH (11:33)
[2018-01-31] MEDS: Aspirin 81 MG TAB.CHEW PO SCH (11:33)
[2018-01-31] MEDS: Cholecalciferol (D-3) 1,000 UNIT TABLET PO SCH (11:34)
[2018-01-31] MEDS: Lactobacillus 1 EACH CAP.SPRINK PO SCH (11:34)
--- NOTE | 2018-01-31 13:32 | Discharge Summary ---
- NOTES TO OUTPATIENT PROVIDER Notes to Outpatient Provider: none Date of Encounter: 01/31/18 Time of Encounter: 11:00 - Discharge Diagnosis (1) UTI (urinary tract infection) Priority: Primary Status: Acute Qualifiers: Urinary tract infection type: acute cystitis Hematuria presence: with hematuria Qualified Code(s): N30.01 - Acute cystitis with hematuria (2) Skin inflammation at urostomy site Priority: Primary Status: Acute (3) Pressure ulcer Priority: Secondary Status: Chronic Qualifiers: Pressure ulcer location: other site Pressure ulcer stage: unspecified pressure ulcer stage Qualified Code(s): L89.899 - Pressure ulcer of other site , unspecified stage Hospital course: Patient is a 48-year-old male with past medical history significant for CHF, CVA , hyperlipidemia, hypertension and thyroid who presents to the ER on 01/26/18 due to blood in his urine and redness around his urostomy site. 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 He has had urostomy in place for several years. He has a history of spina bifida and neurogenic bladder. During patients hospital stay his cultures were positive for Pseudomonas, MRSA , and Achromobacter xylosoxidans and he was treated for sepsis secondary to acute cystitis with IV antibiotics. Patients erythema around urostomy site also improved on IV antibiotics. Patient will be discharged to complete a 1 day course of Bactrim/Levaquin - Time Spent with Patient Total time spent providing and/or coordinating discharge services: Less than 30 minutes - Discharge Medications Prescriptions: levoFLOXacin [Levaquin] 750 mg PO Q24H #1 tablet Nystatin POWDER [Nystop] 1 appl TP BID #1 bottle Sulfamethoxazole/Trimeth DS [Bactrim Ds] 1 each PO BID #2 tablet Home Medications: Cholecalciferol (Vitamin D3) [Vitamin D3] 5,000 unit PO DAILY 11/12/16 [History] Fluticasone Propionate [Flovent Hfa] 1 - 2 puff IH BID 11/12/16 [History] Levothyroxine [Synthroid] 200 mcg PO DAILY 11/12/16 [History] Lactobacillus Acidophilus/Fos [Acidophilus Probiotic Tablet] 1 cap PO DAILY 06/17 [History] Loratadine [Claritin] 10 mg PO DAILY 03/08/17 [History] Multivitamin [One Daily Multivitamin] 1 tab PO DAILY 03/08/17 [History] Enalapril Maleate [Vasotec] 10 mg PO DAILY 03/23/17 [History] Omeprazole [PriLOSEC] 20 mg PO DAILY 08/25/17 [History] Atorvastatin [Lipitor] 40 mg PO HS 11/14/17 [History] Aspirin 81 mg PO DAILY #30 tab.chew 01/17/18 [Rx] Furosemide [Lasix] 40 mg PO DAILY 7 Days #7 tablet 01/17/18 [Rx] Metoprolol [Lopressor] 12.5 mg PO BID #30 tablet 01/17/18 [Rx] Nystatin POWDER [Nystop] 1 appl TP BID #1 bottle 01/31/18 [Rx] Sulfamethoxazole/Trimeth DS [Bactrim Ds] 1 each PO BID #2 tablet 01/31/18 [Rx] levoFLOXacin [Levaquin] 750 mg PO Q24H #1 tablet 01/31/18 [Rx] Allergies/Adverse Reactions: 3 Allergy/AdvReac Type Severity Reaction Status Date / Time adhesive Allergy Blister Verified 12/10/17 21:23 Amoxicillin Allergy Hives Verified 12/10/17 21:23 Oxaprozin [From Daypro] AdvReac Diarrhea Verified 12/10/17 21:23 Date of admission: 01/26/18 06:18 Primary care physician: Maria Elena An Consults: 01/26/18 06:24 Consult to Wound Care [CONS] Routine Reason for Consult: oruostomy wound infection Call Completed: No 01/26/18 06:51 Consult to Pastoral Services [CONS] Routine Comment: 01/30/18 04:44 Consult to Invasive Line Access Team [CONS] Routine Reason for Consult: Patient's a hard stick and viens blow easily Line Type: EPIV 01/30/18 09:51 Consult to Infectious Diseases [CONS] Routine Consulting Provider: Infectious Disease Yan[place] Reason for Consult: Multiple organisms growing in urine culture Time Notified: 09:00 Call Completed: Yes - Constitutional Vitals: Temp Pulse Resp BP Pulse Ox 97.8 F 89 20 110/72 97 01/31/18 11:01 01/31/18 11:01/31/18 11:01 01/31/18 11:01 01/31/18 11:01 General appearance: Present: cooperative, A&O X 3, pleasant, no acute distress - Respiratory Respiratory exam: Present: CTAB. Absent: accessory muscle use, rales, rhonchi, wheezes - Cardiovascular Cardiovascular exam: Present: RRR, +S1, +S2. Absent: diastolic murmur, gallop, rubs, systolic murmur - Patient Status Disposition: Home Health Service Condition: Fair - Discharge Instructions Follow Up With: Maria Elena An MD [Primary Care Provider] - 02/07/18 10:45 am (Please follow up as schedule...) - VTE Documentation of Mechanical Device: Graduated compression elastic hosiery
--- NOTE | 2018-01-31 13:34 | Physician Discharge Referral ---
Home Health/Hosp Referral Info Transfer to: Home Health - Diagnosis (1) UTI (urinary tract infection) Status: Acute (2) Skin inflammation at urostomy site Status: Acute (3) Pressure ulcer Status: Chronic - Respiratory Orders Smoking Cessation: Smoking cessation has been advised. For more information, call the [place] Tobacco Quit Line at 6-351-ZVNL-NOW. - Services Needed Following services are medically necessary services: Nursing, Home Health Aide, Physical Therapy, Occupational Therapy - Transfer Medications Prescriptions: levoFLOXacin [Levaquin] 750 mg PO Q24H #1 tablet Nystatin POWDER [Nystop] 1 appl TP BID #1 bottle Sulfamethoxazole/Trimeth DS [Bactrim Ds] 1 each PO BID #2 tablet Home Medications: Cholecalciferol (Vitamin D3) [Vitamin D3] 5,000 unit PO DAILY 11/12/16 [History] Fluticasone Propionate [Flovent Hfa] 1 - 2 puff IH BID 11/12/16 [History] Levothyroxine [Synthroid] 200 mcg PO DAILY 11/12/16 [History] Lactobacillus Acidophilus/Fos [Acidophilus Probiotic Tablet] 1 cap PO DAILY 06/17 [History] Loratadine [Claritin] 10 mg PO DAILY 03/08/17 [History] Multivitamin [One Daily Multivitamin] 1 tab PO DAILY 03/08/17 [History] Enalapril Maleate [Vasotec] 10 mg PO DAILY 03/23/17 [History] Omeprazole [PriLOSEC] 20 mg PO DAILY 08/25/17 [History] Atorvastatin [Lipitor] 40 mg PO HS 11/14/17 [History] Aspirin 81 mg PO DAILY #30 tab.chew 01/17/18 [Rx] Furosemide [Lasix] 40 mg PO DAILY 7 Days #7 tablet 01/17/18 [Rx] Metoprolol [Lopressor] 12.5 mg PO BID #30 tablet 01/17/18 [Rx] Nystatin POWDER [Nystop] 1 appl TP BID #1 bottle 01/31/18 [Rx] Sulfamethoxazole/Trimeth DS [Bactrim Ds] 1 each PO BID #2 tablet 01/31/18 [Rx] levoFLOXacin [Levaquin] 750 mg PO Q24H #1 tablet 01/31/18 [Rx] Allergies/Adverse Reactions: 3 Allergy/AdvReac Type Severity Reaction Status Date / Time adhesive Allergy Blister Verified 12/10/17 21:23 Amoxicillin Allergy Hives Verified 12/10/17 21:23 Oxaprozin [From Daypro] AdvReac Diarrhea Verified 12/10/17 21:23 Certification: Further, I certify that my clinical findings support that this patient is homebound (i.e. absences from home require considerable and taxing effort and are for medical reasons or congregation services or infrequently or short duration when for other reasons) because: Homebound Reason: Patient requires assistance of a person or device to safely leave home Attestation: My signature below is to certify that this patient is under my care and that I, or nurse practitioner, or a physician's wellness assistant working with me, has a face-to -face encounter with this patient.
== END 2018-01-31 16:23 | disposition home health service (06) | DRG 872 ==
LOC: 2ANU 23:37 → EMEROO 23:37 → 2ANU 01-26 04:55 → SUATTDRO 01-26 06:18
PROVIDERS: ADMIT Internal Medicine; ATTEND Hospitalist

== ENCOUNTER 2018-03-25 15:05 | Inpatient (IN) ==
[2018-03-25] MEDS ORDERED: 0.9 % Sodium Chloride 1,000 ML IVC ONE (16:31)
--- NOTE | 2018-03-25 16:33 | Emergency Department Note ---
Disposition Clinical Impression: Pressure ulcer of left heel, stage 3, Lower extremity edema Cellulitis Qualifiers: Site of cellulitis: extremity Site of cellulitis of extremity: lower extremity Laterality: unspecified laterality Qualified Code(s): L03.119 - Cellulitis of unspecified part of limb UTI (urinary tract infection) Qualifiers: Urinary tract infection type: site unspecified Hematuria presence: without hematuria Qualified Code(s): N39.0 - Urinary tract infection, site not specified Disposition: Admitted As Inpatient Condition: Good Referrals: Maria Elena An MD [Primary Care Provider] - Forms: ED Satisfaction Letter Time of Disposition: 19:34 General Adult HPI - General Chief complaint: ED Nausea/Vomiting/Diarrhea Stated complaint: n/v/d, leg swelling Time Seen by Provider: 03/25/18 15:57 Source: patient Mode of arrival: wheelchair Limitations: no limitations Nursing Notes Reviewed: Yes Vital Signs Reviewed: Yes - History of Present Illness HPI Narrative: Mr. Leone is a very pleasant 48-year-old gentleman with a past medical history of spina bifida, neurogenic bladder resulting in a urostomy, CHF, CVA, hyperlipidemia, hypertension and thyroid disease or presents to the [facility] emergency department with a chief complaint of bilateral lower extremity edema. He reports that he was recently admitted up at [place] for urinary tract infection, acute kidney injury and lower extremity cellulitis. Patient was on IV antibiotics and was discharged home. At that time, he was seen for his pressure ulcers up at a wound clinic in [place]. He subsequently was sent home with physical therapy, occasional therapy and home health aides on discharge. He reports that his pressure ulcers on his left heel, left thigh and right thigh have progressively worsened over the last several days. He has associated nausea and vomiting and diarrhea. He reports that his diarrhea is watery and occurs 1 time per day. Patient goes on to state that he has left lower extremity pain and warmth as well as a subjective fever yesterday. He reports that he is able ambulate with bilateral arm crutches since he was born with spina bifida and has used these crutches since then. He reports that sometimes his urine leaks out of his urostomy site down to his thighs. Patient was seen here [place] was recently and discharged on 01/31/2018 for UTI, inflammation around his urostomy site and a pressure ulcer management. 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 No history of positive blood cultures. At that time patient received IV antibiotics and was discharged home on Bactrim and Levaquin. Patient denies any other systemic complaints such as chest pain, shortness of breath, palpitations, abdominal pain , cough. No other complaints at this time. Pain Scale: 1 - Related Data Home Medications Medication Instructions Recorded Confirmed Cholecalciferol (Vitamin D3) 5,000 unit PO DAILY 11/12/16 01/26/18 [Vitamin D3] Fluticasone Propionate [Flovent 1 - 2 puff IH BID 11/12/16 01/26/18 Hfa] Levothyroxine [Synthroid] 200 mcg PO DAILY 11/12/16 03/25/18 Lactobacillus Acidophilus/Fos 1 cap PO DAILY 03/08/17 01/26/18 [Acidophilus Probiotic Tablet] Loratadine [Claritin] 10 mg PO DAILY 03/08/17 01/26/18 Multivitamin [One Daily 1 tab PO DAILY 03/08/17 01/26/18 Multivitamin] Enalapril Maleate [Vasotec] 10 mg PO DAILY 03/23/17 01/26/18 Omeprazole [PriLOSEC] 20 mg PO DAILY 08/25/17 01/26/18 Atorvastatin [Lipitor] 40 mg PO HS 11/14/17 01/26/18 Magnesium Oxide [Mag-Oxide] 400 mg PO BID 03/25/18 03/25/18 Previous Rx's Medication Instructions Recorded Aspirin 81 mg PO DAILY #30 tab.chew 01/17/18 Furosemide [Lasix] 40 mg PO DAILY 7 Days #7 tablet 01/17/18 Metoprolol [Lopressor] 12.5 mg PO BID #30 tablet 01/17/18 Nystatin POWDER [Nystop] 1 appl TP BID #1 bottle 01/31/18 Allergies Allergy/AdvReac Type Severity Reaction Status Date / Time adhesive Allergy Blister Verified 03/25/18 19:26 Amoxicillin Allergy Hives Verified 03/25/18 19:26 Oxaprozin [From Daypro] AdvReac Diarrhea Verified 03/25/18 19:26 Review of Systems: As Per HPI Past Medical History - Past Medical History Medical history: Reports: asthma, cancer, CHF, CVA, hyperlipidemia, hypertension , myocardial infarction, thyroid disease Surgical history: Reports: appendectomy, orthopedic, other (Hardware in the BLE) , vasectomy, other (Cystectomy) Psychiatric history: Reports: depression - Social History Smoking Status: Never smoker Smokeless Tobacco Status: No Alcohol use: Reports: rarely Drug use: Reports: none Physical Exam CONSTITUTIONAL: Alert and oriented X3 in no apparent distress HEAD: Normocephalic; atraumatic. Oropharynx: pink/moist RESP: NRD without use of accessory musculature, CTA b/l with no wheezes/rales/ rhonchi CARD: Regular rhythm, without murmurs, rubs, or gallop ABD: Urostomy site intact, mild erythema with drainage PERINEUM: Erythematous and edematous throughout that continues down to the medial and posterior thigh EXT: 1+ dorsalis pedis pulses bilateral, profound bilateral lower extremity edema, open pressure ulcer seen on the proximal left posterior thigh, right posterior thigh as well as left heel. Tenderness to palpation about his left dorsum of the foot as well as left anterior lower extremity. PSYCH: appropriate mood/affect - General Limitations: no limitations General appearance: alert, in no apparent distress Course Course Narrative: Patient was seen and examined at bedside with his sisters present. Vital signs reviewed and demonstrated elevated heart rate 112. Patient is afebrile. Patient appears comfortable and is nontoxic at this time. Physical examination demonstrates tenderness to palpation and warmth about his left lower extremity. Patient has pressure ulcers that are open and bloody about his left posterior thigh, right posterior thigh and left heel of his foot. Patient is also very erythematous and edematous about his perineum back in next to his area of erythema about his posterior thighs. Patient was nontender to palpation to this area. Patient was recently discharged from hospital in [place] for UTI, DIO and lower extremities cellulitis. Given that his ulcers and lower extremity edema are worsening, we will begin workup to rule out a cellulitis and /or osteomyelitis concerning of the left heel along with possible UTI. Urinalysis, CBC, BMP, blood cultures, lactic acid, hepatic panel, amylase, lipase were drawn. IV access was obtained and patient was started on IV fluids. Patient was started on Zyvox. Will obtain CT of the bilateral lower extremities with IV contrast. Wound cultures were obtained of the left heel. Again patient appears comfortable at this time. This disposition and plan was discussed with patient and family understand and agree. Results pending. 191: CBC demonstrates. Mild bump in what blood cell count, BMP was unremarkable, lactic acid normal. Blood cultures and wound cultures were sent. CT of the left lower extremity: demonstrates extensive soft tissue swelling inferior to the level of the knee. Adjacent bone structures remain intact to area of ulceration. These findings are consistent with cellulitis. There is no fluid collection identified. CT of Right lower extremity: shows similar findings with extensive soft tissue swelling most compatible with cellulitis. There is no fluid collections and no evidence of oste-myelitis in the right lower extremity. In the setting of profound cellulitis with multiple pressure ulcers, patient would benefit from hospital admission for IV antibiotics and wound care management. Patient is hemodynamically stable and appears comfortable at this time. Urinalysis is pending. Hospitalist will be paged to discuss admission. 1933: Spoke with hospitalist, Dr. Gabriel and discussed the case with him. He will accept patient for hospital admission. No further recommendations per the hospitalist team. This disposition and plan was discussed with patient and family who understand and agree to this plan. All questions and concerns were addressed. Vital Signs Temperature 98.1 F 03/25/18 15:16 Pulse Rate 112 03/25/18 15:16 Respiratory Rate 18 03/25/18 15:16 Blood Pressure 150/94 03/25/18 15:16 O2 Sat by Pulse Oximetry 98 03/25/18 15:16 Temperature 98.1 F 03/25/18 15:16 Pulse Rate 98 03/25/18 21:04 Respiratory Rate 18 03/25/18 21:04 Blood Pressure 121/71 03/25/18 21:04 O2 Sat by Pulse Oximetry 95 03/25/18 21:04 Oxygen Delivery Oxygen Delivery Room Air Medical Decision Making - Medical Records Medical records reviewed: Yes I reviewed the patient's medical records. - Lab Data Lab results reviewed: Yes I reviewed the patient's lab results. Result diagrams: 03/25/18 16:37 03/25/18 16:37 Lab Results 03/25/18 03/25/18 03/25/18 Range/Units 16:37 16:37 16:37 WBC 11.4 H (4.3-11.1) K/mcL RBC 4.81 (4.19-5.50) M/mcL Hgb 12.5 L (12.9-16.9) g/dL Hct 41.1 (37.5-50.1) % MCV 85.4 (83.0-100.0) fL MCH 26.0 L (28.0-33.3) pg MCHC 30.4 L (31.6-35.5) g/dL RDW 16.7 H (11.5-14.5) % Plt Count 444 H (140-400) K/mcL MPV 10.3 (9.4-12.4) fL Immature Gran % 0.4 (0-4) % Seg Neutrophils % 74.8 % Lymphocytes % 14.4 % Monocytes % 6.2 % Eosinophils % 3.5 % Basophils % 0.7 % Neutrophils # 8.5 (1.6-8.9) K/mcL Lymphocytes # 1.6 (0.6-4.6) K/mcL Monocytes # 0.7 (0.0-1.3) K/mcL Eosinophils # 0.4 (0.0-0.6) K/mcL Basophils # 0.1 (0.0-0.2) K/mcL Sodium 138 (136-145) mEq/L Potassium 3.3 L (3.5-5.1) mEq/L Chloride 99 (98-107) mEq/L Carbon Dioxide 26 (23-29) mEq/L BUN 15 (6-20) mg/dL Creatinine 1.00 (0.70-1.30) mg/dL Est GFR ( Amer) > 60 (> 60) Est GFR (Non-Af Amer) > 60 (> 60) BUN/Creatinine Ratio 15 (6-26) Glucose 119 H (70-105) mg/dL Calculated Osmolality 288 (280-300) Lactic Acid (0.5-2.2) mmol/L Calcium 9.7 (8.6-10.3) mg/dL Total Bilirubin 0.6 (0.3-1.0) mg/dL Direct Bilirubin 0.2 (0.0-0.2) mg/dL Indirect Bilirubin 0.4 (0.0-1.2) mg/dL AST 21 (13-39) Units/L ALT 19 (7-52) Units/L Alkaline Phosphatase 95 (34-104) Units/L B-Natriuretic Peptide 21 (Less than 100) pg/mL Serum Total Protein 8.2 (6.4-8.9) g/dL Albumin 4.1 (3.5-5.7) g/dL Globulin 4.1 H (2.4-3.5) g/dL Albumin/Globulin Ratio 1.0 L (1.1-2.2) Amylase 39 (29-103) Units/L Lipase 19 (11-82) Units/L Urine Color (Yellow) Urine Clarity (Clear) Urine pH (5.0-8.0) pH Units Ur Specific Ketch[place] (1.010-1.025) Urine Protein (Neg-Trace) mg/dL Urine Glucose (UA) (Normal) mg/dL Urine Ketones (Negative) mg/dL Urine Blood (Negative) Urine Nitrite (Negative) Urine Bilirubin (Negative) Urine Urobilinogen (Normal) mg/dL Ur Leukocyte Esterase (Negative) Urine Microscopic RBC (0-3) per hpf Urine Microscopic WBC (0-3) per hpf Ur Squamous Epith Cells (None-Few) per lpf Urine Bacteria (None-Few) per hpf Hyaline Casts (None-Few) per lpf Ur Culture Indicated? (NO) 03/25/18 03/25/18 Range/Units 16:37 19:30 WBC (4.3-11.1) K/mcL RBC (4.19-5.50) M/mcL Hgb (12.9-16.9) g/dL Hct (37.5-50.1) % MCV (83.0-100.0) fL MCH (28.0-33.3) pg MCHC (31.6-35.5) g/dL RDW (11.5-14.5) % Plt Count (140-400) K/mcL MPV (9.4-12.4) fL Immature Gran % (0-4) % Seg Neutrophils % % Lymphocytes % % Monocytes % % Eosinophils % % Basophils % % Neutrophils # (1.6-8.9) K/mcL Lymphocytes # (0.6-4.6) K/mcL Monocytes # (0.0-1.3) K/mcL Eosinophils # (0.0-0.6) K/mcL Basophils # (0.0-0.2) K/mcL Sodium (136-145) mEq/L Potassium (3.5-5.1) mEq/L Chloride (98-107) mEq/L Carbon Dioxide (23-29) mEq/L BUN (6-20) mg/dL Creatinine (0.70-1.30) mg/dL Est GFR ( Amer) (> 60) Est GFR (Non-Af Amer) (> 60) BUN/Creatinine Ratio (6-26) Glucose (70-105) mg/dL Calculated Osmolality (280-300) Lactic Acid 1.9 (0.5-2.2) mmol/L Calcium (8.6-10.3) mg/dL Total Bilirubin (0.3-1.0) mg/dL Direct Bilirubin (0.0-0.2) mg/dL Indirect Bilirubin (0.0-1.2) mg/dL AST (13-39) Units/L ALT (7-52) Units/L Alkaline Phosphatase (34-104) Units/L B-Natriuretic Peptide (Less than 100) pg/mL Serum Total Protein (6.4-8.9) g/dL Albumin (3.5-5.7) g/dL Globulin (2.4-3.5) g/dL Albumin/Globulin Ratio (1.1-2.2) Amylase (29-103) Units/L Lipase (11-82) Units/L Urine Color Yellow (Yellow) Urine Clarity Cloudy A (Clear) Urine pH 8.0 (5.0-8.0) pH Units Ur Specific Ketchum 1.021 (1.010-1.025) Urine Protein Trace (Neg-Trace) mg/dL Urine Glucose (UA) Normal (Normal) mg/dL Urine Ketones Negative (Negative) mg/dL Urine Blood Large H (Negative) Urine Nitrite Positive A (Negative) Urine Bilirubin Negative (Negative) Urine Urobilinogen Normal (Normal) mg/dL Ur Leukocyte Esterase Moderate H (Negative) Urine Microscopic RBC 30-50 H (0-3) per hpf Urine Microscopic WBC 30-50 H (0-3) per hpf Ur Squamous Epith Cells Moderate H (None-Few) per lpf Urine Bacteria Many H (None-Few) per hpf Hyaline Casts Few (None-Few) per lpf Ur Culture Indicated? YES A (NO) - Radiology Data Radiology results reviewed: Yes I reviewed the patient's radiology results. Lower Extremity CT 03/25/18 16:25 IMPRESSION: Left lower extremity: 1. Extensive soft tissue swelling involving the lower extremity, especially inferior to the level the knee. 2. Possible ulceration of the level the lateral malleolus and at the heel. Subjacent bony structures remain intact, without obvious osteolysis to suggest osteomyelitis. Note that CT sensitivity for detection of osteomyelitis is limited. 3. The soft tissue swelling is most compatible with cellulitis. No focal fluid collections are identified. 4. Large amount of stool within the visualized colon. Correlate with any clinical evidence constipation. Right lower extremity: 1. Extensive soft tissue swelling, especially within the subcutaneous fat, again most compatible with cellulitis. No focal fluid collections are identified to suggest abscess formation. 2. Definite ulceration on the right is not visualized. 3. No obvious CT evidence of osteomyelitis, although the sensitivity of CT is limited. D/ / Asif Oconnor MD / Asif Oconnor MD Interpreting Provider: Asif Oconnor MD Attestation Statement - Attestation Attestation: I examined this patient and my medical decision-making was reviewed with the Resident Physician, Dr. Pantoja. I agree with the documented findings, disposition and treatment plan as described except to the extent set forth below. Patient is a 48-year-old white male with history of spina bifida and status post urostomy placement who presents the emergency department with extensive cellulitis. Patient has been having prior hospitalizations for recurrent urinary tract infections as well as recurrent wound infections and has been hospitalized in [place] as well as recently here at [facility] and was recently discharged home with physical therapy occupational therapy as well as wound care. Patient began having worsening pain and redness and swelling to bilateral lower extremities, bilateral posterior thighs and right chest wall. Patient arrives tachycardic but with a stable blood pressure denies any fevers or chills no nausea vomiting, no upper respiratory symptoms sore throat or cough. Patient does state over the past 48 hours that he said episodes of vomiting and loose watery stools. I agree with patient's physical exam findings as documented. Patient is in no acute distress awake alert and oriented 4. Patient had blood in urine as well as wound cultures obtained, IV fluids were initiated on arrival extensive lab evaluation was performed as well as CTs of the bilateral lower extremities. Wound on his left heel is quite deep and there is concern initially about possible osteomyelitis. Patient's labs show only a mild white count with left shift otherwise unremarkable. Lactate is within normal limits. CT scans show evidence of cellulitis bilateral lower extremities but no evidence of osteo-per imaging. Patient will be covered with antibiotics based on his recent culture results and has remained hemodynamically stable throughout his ED course. Patient will be admitted for further evaluation of his extensive cellulitis.
[2018-03-25 16:59] LABS: Basophils # 0.1 K/mcL (0.0-0.2); Basophils % 0.7 %; Eosinophils # 0.4 K/mcL (0.0-0.6); Eosinophils % 3.5 %; Hematocrit 41.1 % (37.5-50.1); Hemoglobin 12.5 g/dL (12.9-16.9); Immature Granulocytes % 0.4 % (0-4); Lymphocytes # 1.6 K/mcL (0.6-4.6); Lymphocytes % 14.4 %; Mean Corpuscular HGB Conc 30.4 g/dL (31.6-35.5); Mean Corpuscular Volume 85.4 fL (83.0-100.0); Mean Platelet Volume 10.3 fL (9.4-12.4); Monocytes # 0.7 K/mcL (0.0-1.3); Monocytes % 6.2 %; Neutrophils # 8.5 K/mcL (1.6-8.9); Platelet Count 444 K/mcL (140-400); Red Blood Count 4.81 M/mcL (4.19-5.50); Red Cell Distribution Width 16.7 % (11.5-14.5); Segmented Neutrophils % 74.8 %
[2018-03-25 17:38] LABS: Alanine Aminotransferase 19 Units/L (7-52); Albumin 4.1 g/dL (3.5-5.7); Alkaline Phosphatase 95 Units/L (34-104); Amylase 39 Units/L (29-103); Aspartate Amino Transferase 21 Units/L (13-39); BUN/Creatinine Ratio 15 (6-26); Bilirubin,Direct 0.2 mg/dL (0.0-0.2); Bilirubin,Indirect 0.4 mg/dL (0.0-1.2); Bilirubin,Total 0.6 mg/dL (0.3-1.0); Blood Urea Nitrogen 15 mg/dL (6-20); Calcium 9.7 mg/dL (8.6-10.3); Carbon Dioxide 26 mEq/L (23-29); Chloride 99 mEq/L (98-107); Globulin 4.1 g/dL (2.4-3.5); Glucose 119 mg/dL (70-105); Lipase 19 Units/L (11-82); Osmolality,Calculated 288 (280-300); Potassium 3.3 mEq/L (3.5-5.1); Sodium 138 mEq/L (136-145); Total Protein 8.2 g/dL (6.4-8.9); eGFR For African Americans > 60 (> 60); eGFR For Non-African Americans > 60 (> 60)
[2018-03-25 19:36] LABS: Bilirubin,Urine Negative (Negative); Blood,Urine Large (Negative); Clarity,Urine Cloudy (Clear); Color,Urine Yellow (Yellow); Glucose,Urine (UA) Normal (Normal); Ketones,Urine Negative (Negative); Leukocyte Esterase,Urine Moderate (Negative); Nitrite,Urine Positive (Negative); Protein,Urine Trace mg/dL (Neg-Trace); Specific Gravity,Urine 1.021 (1.010-1.025); Urobilinogen,Urine Normal (Normal)
[2018-03-25 19:37] LABS: Bacteria,Urine Many per hpf (None-Few); Hyaline Casts,Urine Few per lpf (None-Few); RBC,Urine 30-50 per hpf (0-3); Squamous Epithelial Cell,Urine Moderate per lpf (None-Few); WBC,Urine 30-50 per hpf (0-3)
--- NOTE | 2018-03-25 23:26 | Internal Med History&Physical ---
Date of Encounter: 03/25/18 Time of Encounter: 23:23 Assessment and Plan (1) Decubitus ulcer of left ankle, stage 3 Current visit: No Status: Chronic chronic and concern for for osteomyelitis (2) Nausea and vomiting Current visit: No Status: Acute Qualifiers: Vomiting type: unspecified Vomiting Intractability: unspecified Qualified Code(s): R11.2 - Nausea with vomiting, unspecified (3) Spina bifida Current visit: No Status: Chronic Her chronic neurogenic bladder Qualifiers: Spinal region: lumbosacral Presence of hydrocephalus: unspecified hydrocephalus presence Qualified Code(s): Q05.7 - Lumbar spina bifida without hydrocephalus (4) Essential hypertension Current visit: No Status: Chronic Chronic and well controlled (5) Hyperlipidemia Current visit: No Status: Chronic Qualifiers: Hyperlipidemia type: pure hypercholesterolemia Qualified Code(s): E78.00 - Pure hypercholesterolemia, unspecified; E78.0 - Pure hypercholesterolemia (6) Diabetes 1.5, managed as type 2 Current visit: No Status: Chronic Resume home medication and place on sliding scale (7) Cellulitis of left lower extremity Current visit: No Status: Acute Recurrent cellulitis and heel wound (8) UTI (urinary tract infection) Current visit: No Status: Acute Recurrent UTI Qualifiers: Urinary tract infection type: acute cystitis Hematuria presence: without hematuria Qualified Code(s): N30.00 - Acute cystitis without hematuria Internal Medicine - H&P: HPI Chief complaint: bilat leg cellulitis Admitted From: Emergency Dept Plans for Post Hospital Care: Home History of present illness: Mr. Leone is a 48 year old male Patient with history of morbid obesity, spinal bifida, neurogenic bladder with urostomy, hypertension, high cholesterol, asthma, CVA, high cholesterol, hypertension. Patient recently admitted to [facility] for cellulitis treated with IV antibiotic and then discharged patient returns with progressive worsening lower extremities edema worsening heel pressure ulcer for several days with some nausea vomiting and diarrhea and lower extremity pain and fever CT of the lower extremities suggestive of osteomyelitis with soft tissue swelling also with large stool in the colon patient will be admitted for further IV antibiotic , diuresis , wound care and infection disease consultation. Past Med Surg Social Fam HX - Past Medical History Medical history: asthma, cancer, CHF, CVA, hyperlipidemia, hypertension, myocardial infarction, thyroid disease Psychiatric history: depression - Past Surgical History Surgical History: appendectomy, orthopedic, other (Hardware in the BLE), vasectomy, other (Cystectomy) - Social History Smoking Status: Never smoker Smokeless Tobacco Status: No Alcohol use: rarely Drug use: none - Family History Mother Family Member Ethnicity: Non- Living Status: Still Living Hx Family Cardiac Disorders: Yes (HTN) Hx Family Endocrine Disorder: Yes (DM) Hx Family Neurologic Disorders: Yes (Dementia) Sister Family Member Ethnicity: Non- Living Status: Still Living Hx Family Cardiac Disorders: No Hx Family Respiratory Disorders: Yes Hx Family Cancer: No Hx Family GI Disorders: Yes Hx Family Endocrine Disorder: Yes Hx Family Neuromuscular Disorders: Yes Hx Family Neurologic Disorders: Yes Brother Family Member Ethnicity: Non- Living Status: Still Living Hx Family Cardiac Disorders: Yes (HTN) Father Family Member Ethnicity: Non- Living Status: Hx Family Cardiac Disorders: Yes (CHF, HTN) Hx Family Respiratory Disorders: Yes (Asthma, emphysema) Hx Family Cancer: Yes (Lung) Hx Family GI Disorders: No Hx Family Endocrine Disorder: Yes Hx Family Neuromuscular Disorders: No Hx Family Neurologic Disorders: No Hx Family HEENT Disorders: No Hx Family Autoimmune Disorders: No Internal Medicine - H&P: Meds Cholecalciferol (Vitamin D3) [Vitamin D3] 5,000 unit PO DAILY 11/12/16 [History] Fluticasone Propionate [Flovent Hfa] 1 - 2 puff IH BID 11/12/16 [History] Levothyroxine [Synthroid] 200 mcg PO DAILY 11/12/16 [History] Lactobacillus Acidophilus/Fos [Acidophilus Probiotic Tablet] 1 cap PO DAILY 06/17 [History] Loratadine [Claritin] 10 mg PO DAILY 03/08/17 [History] Multivitamin [One Daily Multivitamin] 1 tab PO DAILY 03/08/17 [History] Enalapril Maleate [Vasotec] 10 mg PO DAILY 03/23/17 [History] Omeprazole [PriLOSEC] 20 mg PO DAILY 08/25/17 [History] Atorvastatin [Lipitor] 40 mg PO HS 11/14/17 [History] Aspirin 81 mg PO DAILY #30 tab.chew 01/17/18 [Rx] Furosemide [Lasix] 40 mg PO DAILY 7 Days #7 tablet 01/17/18 [Rx] Metoprolol [Lopressor] 12.5 mg PO BID #30 tablet 01/17/18 [Rx] Nystatin POWDER [Nystop] 1 appl TP BID #1 bottle 01/31/18 [Rx] Magnesium Oxide [Mag-Oxide] 400 mg PO BID 03/25/18 [History] 3 Allergy/AdvReac Type Severity Reaction Status Date / Time adhesive Allergy Blister Verified 03/25/18 19:26 Amoxicillin Allergy Hives Verified 03/25/18 19:26 Oxaprozin [From Daypro] AdvReac Diarrhea Verified 03/25/18 19:26 All Systems PM: A 10-system review of systems was performed and is negative for pertinent findings except as documented above in the HPI. - Constitutional Vitals: Temp Pulse Resp BP Pulse Ox 98.1 F 98 18 118/90 95 03/25/18 15:16 03/25/18 21:04 03/25/18 23:08 03/25/18 23:08 03/25/18 21:04 - Eye Eye exam: Present: PERRL, conjuntiva pink, sclera anicteric Pupils: Present: PERRL - Respiratory Respiratory exam: Present: rhonchi - Cardiovascular Cardiovascular exam: Present: RRR, +S1, +S2. Absent: diastolic murmur, gallop, rubs, systolic murmur - GI/Abdominal GI/Abdominal exam: Present: normal bowel sounds, soft, no peritoneal signs. Absent: distended, tenderness - Extremities Exam Extremities exam: Present: tenderness, warm Internal Med - H&P Results - Labs CBC & Chem 7: 03/25/18 16:37 03/25/18 16:37
[2018-03-25] MEDS ORDERED: traMADol 50 MG TABLET PO PRN (23:31)
[2018-03-25] MEDS ORDERED: Naloxone 0.4 MG/ML INJ IVP PRN (23:31)
[2018-03-25] MEDS ORDERED: Acetaminophen 325 MG TABLET PO PRN (23:31)
[2018-03-26 01:52] LABS: Hematocrit 34.4 % (37.5-50.1); Mean Corpuscular HGB Conc 31.1 g/dL (31.6-35.5); Mean Corpuscular Hemoglobin 26.1 pg (28.0-33.3); Mean Corpuscular Volume 83.9 fL (83.0-100.0); Mean Platelet Volume 10.9 fL (9.4-12.4); Platelet Count 384 K/mcL (140-400); Red Cell Distribution Width 16.6 % (11.5-14.5)
[2018-03-26 01:54] LABS: Hemoglobin 10.7 g/dL (12.9-16.9)
[2018-03-26] MEDS ORDERED: *HR* HYDROcodone/Acet 5/325 mg TABLET PO PRN ×2 (02:10→02:15)
[2018-03-26 02:23] LABS: Alanine Aminotransferase 14 Units/L (7-52); Albumin 3.7 g/dL (3.5-5.7); Albumin/Globulin Ratio 1.1 (1.1-2.2); Alkaline Phosphatase 80 Units/L (34-104); Aspartate Amino Transferase 20 Units/L (13-39); BUN/Creatinine Ratio 16 (6-26); Bilirubin,Total 0.6 mg/dL (0.3-1.0); Blood Urea Nitrogen 14 mg/dL (6-20); Carbon Dioxide 24 mEq/L (23-29); Chloride 101 mEq/L (98-107); Chol/HDL Ratio 4.1 (0-4.9); Cholesterol 144 mg/dL (< 200); Globulin 3.4 g/dL (2.4-3.5); Glucose 120 mg/dL (70-105); HDL Cholesterol 35 mg/dL (40-59); LDL Cholesterol,Calculated 87 mg/dL (0-99); Magnesium 1.7 mg/dL (1.6-2.6); Osmolality,Calculated 282 (280-300); Potassium 3.4 mEq/L (3.5-5.1); Sodium 135 mEq/L (136-145); Total Protein 7.1 g/dL (6.4-8.9); Triglycerides 108 mg/dL (< 150); eGFR For African Americans > 60 (> 60); eGFR For Non-African Americans > 60 (> 60)
[2018-03-26] MEDS: *HR* Enoxaparin 40 MG/0.4 ML SYRINGE SQ SCH (06:30)
[2018-03-26] MEDS: Aspirin 81 MG TAB.CHEW PO SCH (08:39)
[2018-03-26] MEDS: Magnesium Oxide 400 MG TABLET PO SCH ×2 (08:39→21:33)
[2018-03-26] MEDS: Multivit/Ca/Min/Fe/FA 1 TAB TABLET PO SCH (08:39)
[2018-03-26] MEDS: Lactobacillus 1 EACH CAP.SPRINK PO SCH (08:39)
[2018-03-26] MEDS: Cholecalciferol (D-3) 1,000 UNIT TABLET PO SCH (08:39)
[2018-03-26] MEDS: Loratadine 10 MG TABLET PO SCH (08:39)
[2018-03-26] MEDS ORDERED: cefTRIAXone 1,000 MG in Water for inj. (sterile) 20 ML 10 ML IVP SCH (09:00)
--- NOTE | 2018-03-26 10:17 | Infectious Disease Consult ---
Date of Encounter: 03/26/18 Time of Encounter: 10:14 Assessment and Plan (1) Cellulitis Status: Chronic Assessment and plan: Patient met one Sirs criteria since admission. Right lower extremity CT showed extensive soft tissue swelling, especially within the subcutaneous fat most compatible with cellulitis. No focal fluid collections. CT of the left lower extremity showed extensive soft tissue swelling involving lower extremity especially inferior to the knee, possible ulceration of the lateral malleolus and heal, soft tissue swelling compatible with cellulitis. No focal fluid collections. Creatinine clearance: 137 Plan: blood cultures x2 pending urine culture pending wound cultures pending Unusure if this is cellulitis vs. lymphedema, as patient did not have elevated WBC, did not meet sepsis criteria. will stop all ABX for now and observe. If temperature is over 100, please re order blood cultures x2. continue with wound care. Qualifiers: Site of cellulitis: extremity Site of cellulitis of extremity: lower extremity Laterality: unspecified laterality Qualified Code(s): L03.119 - Cellulitis of unspecified part of limb (2) Bilateral lower extremity edema Status: Chronic (3) Diabetes Status: Chronic Assessment and plan: Per primary Qualifiers: Diabetes mellitus type: type 2 Diabetes mellitus senior care insulin use: without rn long term care use Diabetes mellitus complication status: with skin complications Diabetes mellitus complication detail: with other skin ulcer Qualified Code(s): E11.622 - Type 2 diabetes mellitus with other skin ulcer (4) Diastolic CHF, chronic Status: Chronic Assessment and plan: Management per primary (5) Essential hypertension Status: Chronic Assessment and plan: Per primary (6) S/P ileal conduit Status: Acute Assessment and plan: Story of bladder cancer with complete ladder resection and placement of ileal conduit. (7) Spina bifida Status: Chronic Qualifiers: Spinal region: lumbosacral Presence of hydrocephalus: unspecified hydrocephalus presence Qualified Code(s): Q05.7 - Lumbar spina bifida without hydrocephalus Infectious Disease HPI - Data of Consult Patient: known to practice within the last 3 years Consult date: 03/26/18 Requesting Physician: Danny Chapman Primary Care Provider: Maria Elena An - Consult Narrative Reason for consult: osteomyelitis History of present illness: Mr. Leone is a 48 year old male who arrived to the hospital on 03/25/18 with chief complaint of aggressive bilateral lower extremity edema, worsening heel pressure ulcer for several days with nausea and vomiting and diarrhea. Infectious disease was consult it on 03/26/18 for cellulitis and possible osteomyelitis recommendations. He has a past medical history of asthma, CHF, CVA, hyperlipidemia, hypertension , [place], morbid obesity, spina bifida, history of bladder cancer S/P bladder resection with ileal conduit present. Patient was recently admitted to [facility] for cellulitis and treated with IV antibiotics and discharged. Patient's last admission to [facility] was from 01/26-01/31 and at that time he was treated for sepsis secondary to UTI vs. Abdominal wound infection. He was seen by ID multiple times prior to that for sepsis. Patient states that about 2 weeks ago he was at [facility] for about 6 days and was treated for cellulitis in his bilateral lower extremities and abdominal area. About one week ago, he started having chills, nausea, vomiting. Throughout the week, his lower extremity edema was getting progressively worse with increased redness and weeping present, so he finally decided to come back to the hospital. Upon arrival to the emergency department, vitals were as follows: temperature 98.1, heart rate 112, respirations 18, blood pressure 150/94, oxygen saturation 98% on room air. WBC was 11.4, lactic acid 1.9, LFTs were unremarkable. CT of the left lower extremity showed extensive soft tissue swelling, especially inferior to the knee. There was possible ulceration of the lateral malleolus, likely compatible with cellulitis. There is no focal fluid collections identified. CT of the right lower extremity showed extensive soft tissue swelling, especially within subcutaneous fat compatible with cellulitis. Patient was admitted for further workup and treatment. Blood in urine cultures are still pending. Of note, patient has had passed urine cultures positive for Pseudomonas, MRSA, Achromobacter Xylosoxidans, Morganella, Proteus mirabilis, Klebsiella oxytoca, VRE. He has had past wound cultures positive for MRSA, VRE, proteus mirabilis, ESBL. Today, patient states that he feels okay. He denies nausea, vomiting, diarrhea , fever, chills, chest pain, shortness of breath. CC: Danny Chapman Past Med Surg Social Fam HX - Past Medical History Medical history: asthma, cancer, CHF, CVA, diabetes, GERD, hyperlipidemia, hypertension, malignancy, migraine, myocardial infarction, thyroid disease, TIA Psychiatric history: depression - Past Surgical History Surgical History: appendectomy, orthopedic, other, vasectomy, other - Social History Smoking Status: Never smoker Smokeless Tobacco Status: No Alcohol use: rarely Drug use: none - Family History Mother History Unknown: Yes Family Member Ethnicity: Non- Living Status: Still Living Hx Family Cardiac Disorders: Yes (HTN) Hx Family Endocrine Disorder: Yes (DM) Hx Family Neurologic Disorders: Yes (Dementia) Sister History Unknown: Yes Family Member Ethnicity: Non- Living Status: Still Living Hx Family Cardiac Disorders: No Hx Family Respiratory Disorders: Yes Hx Family Cancer: No Hx Family GI Disorders: Yes Hx Family Endocrine Disorder: Yes Hx Family Neuromuscular Disorders: Yes Hx Family Neurologic Disorders: Yes Brother History Unknown: Yes Family Member Ethnicity: Non- Living Status: Still Living Hx Family Cardiac Disorders: Yes (HTN) Father History Unknown: Yes Family Member Ethnicity: Non- Living Status: Hx Family Cardiac Disorders: Yes (CHF, HTN) Hx Family Respiratory Disorders: Yes (Asthma, emphysema) Hx Family Cancer: Yes (Lung) Hx Family GI Disorders: No Hx Family Endocrine Disorder: Yes Hx Family Neuromuscular Disorders: No Hx Family Neurologic Disorders: No Hx Family HEENT Disorders: No Hx Family Autoimmune Disorders: No Infectious Disease-CN:Meds Cholecalciferol (Vitamin D3) [Vitamin D3] 5,000 unit PO DAILY 11/12/16 [History] Fluticasone Propionate [Flovent Hfa] 1 - 2 puff IH BID 11/12/16 [History] Levothyroxine [Synthroid] 200 mcg PO DAILY 11/12/16 [History] Lactobacillus Acidophilus/Fos [Acidophilus Probiotic Tablet] 1 cap PO DAILY 06/17 [History] Loratadine [Claritin] 10 mg PO DAILY 03/08/17 [History] Multivitamin [One Daily Multivitamin] 1 tab PO DAILY 03/08/17 [History] Enalapril Maleate [Vasotec] 10 mg PO DAILY 03/23/17 [History] Omeprazole [PriLOSEC] 20 mg PO DAILY 08/25/17 [History] Atorvastatin [Lipitor] 40 mg PO HS 11/14/17 [History] Aspirin 81 mg PO DAILY #30 tab.chew 01/17/18 [Rx] Furosemide [Lasix] 40 mg PO DAILY 7 Days #7 tablet 01/17/18 [Rx] Metoprolol [Lopressor] 12.5 mg PO BID #30 tablet 01/17/18 [Rx] Nystatin POWDER [Nystop] 1 appl TP BID #1 bottle 01/31/18 [Rx] Magnesium Oxide [Mag-Oxide] 400 mg PO BID 03/25/18 [History] 3 Allergy/AdvReac Type Severity Reaction Status Date / Time adhesive Allergy Blister Verified 03/25/18 19:26 Amoxicillin Allergy Hives Verified 03/25/18 19:26 Oxaprozin [From Daypro] AdvReac Diarrhea Verified 03/25/18 19:26 All systems: reviewed and no additional remarkable complaints except as stated Exam - Constitutional Vitals: Temp Pulse Resp BP Pulse Ox 98.2 F 95 16 131/81 96 03/26/18 07:22 03/26/18 07:22 03/26/18 07:22 03/26/18 07:22 03/26/18 07:22 General appearance: morbidly obese, no acute distress - Head Head exam: Present: atraumatic Additional comments: Very disheveled looking - ENT ENT exam: Present: mucous membranes moist Additional comments: Poor dentition. - Respiratory Respiratory exam: Present: CTAB - Cardiovascular Cardiovascular exam: Present: RRR, +S1, +S2 - GI/Abdominal GI/Abdominal exam: Present: distended, soft. Absent: tenderness Additional comments: Ileal conduit present with dark urine inside the ostomy bag. Multiple abdominal scars present from prior surgeries. Area of skin appears erythematous below the panniculus without any open wounds present. - Extremities Exam Additional comments: Bilateral lower extremities extremely swollen. +3 pitting edema present bilateral lower extremities with diffuse areas of erythema. Left foot was wrapped. Skin on bilateral lower extremities was warm to palpation. - Neurological Exam Neurological exam: Present: alert, oriented X3 Infectious Disease CN: Results - Labs CBC & Chem 7: 03/26/18 00:49 03/26/18 00:49 Consult Discharge Plan - Plan Referrals: Maria Elena An MD [Primary Care Provider] - - Attending Attestation I examined this patient and my medical decision-making was reviewed with the Resident Physician. I agree with the documented findings, disposition and treatment plan as described except to the extent set forth below. This is an addendum to original report dictated by resident physician. Please refer to the residents note for full detail. Patient is a 48-year-old gentleman with extensive past medical history mentioned below who is well-known to our service who was seen by us most recently on January 30 of this year came in to the hospital with swelling and erythema of his lower extremities bilaterally. Patient apparently was recently discharged from [facility] on Bactrim for 9 days. Patient tells me he was having more swelling and redness of his legs. Patient denies any fevers or chills. No nausea or vomiting. No chest pain or shortness of breath. Really no other symptoms. When patient arrived he had one SIRS criteria which is tachycardia. He had no fever and WBC was under 12,000. Patient had no bands and lactic acid was within normal limit. CT of the bilateral lower extremities which shows extensive soft tissue swelling which is likely compatible with cellulitis. We are asked to evaluate the patient and make further recommendations. Patient really is at baseline he has no complaints. Physical exam for his lower extremity is remarkable for very poor hygiene of his lower extremities. Onychomycosis noted. And has significant erythema and edema bilateral lower extremities which appears to be chronic. The legs were not warm to touch. At this point I am not sure what to do with the patient. Previous cultures were positive for VRE, MRSA, multidrug resistant Klebsiella and Proteus in the past. If this is a true cellulitis and based on previous cultures will likely need to do a combination of dental daptomycin and probably tobramycin. The only problem is the patient would be high risk with that combination for adverse reaction and acute kidney injury. Patient is currently on Rocephin and was given Zyvox. After reviewing the CT scans, we thought maybe we should just evaluate the cellulitis stop all antibiotics and see if that clinically he does worse or shows any signs of sepsis. We will get the culture results from [facility]. Prognosis overall guarded at best. Please ask wound care to evaluate.
--- NOTE | 2018-03-26 17:34 | Internal Med Progress Note ---
Date of Encounter: 03/26/18 Time of Encounter: 11:00 - Assessment and plan (1) Cellulitis of left lower extremity Current Visit: No Status: Acute Assessment and plan: CT of the left lower extremity showed extensive soft tissue swelling involving the lower extremity which is compatible to cellulitis Patient afebrile and now without leukocytosis. Infectious disease consulted with recommendations to suspend IV antibiotics at this point and monitor Appreciate any further recommendations. (2) Pressure ulcer of left heel, stage 3 Current Visit: Yes Status: Chronic Assessment and plan: CT of left lower extremity showed possible ulceration of the level at the lateral malleolus and at the heel Wound care consulted and appreciate recommendations (3) Bilateral lower extremity edema Current Visit: No Status: Chronic (4) Decubitus ulcer of left buttock Current Visit: No Status: Chronic Assessment and plan: Wound care consulted and appreciate recommendations Qualifiers: Pressure ulcer stage: stage 2 Qualified Code(s): L89.322 - Pressure ulcer of left buttock, stage 2 (5) Decubitus ulcer of left thigh, stage 3 Current Visit: No Status: Chronic Assessment and plan: Wound care consult as above (6) Hyperlipidemia Current Visit: No Status: Chronic Qualifiers: Hyperlipidemia type: pure hypercholesterolemia Qualified Code(s): E78.00 - Pure hypercholesterolemia, unspecified; E78.0 - Pure hypercholesterolemia (7) Hypothyroidism Current Visit: No Status: Chronic Assessment and plan: Continue statin Qualifiers: Hypothyroidism type: unspecified Qualified Code(s): E03.9 - Hypothyroidism , unspecified (8) Hypothyroidism Current Visit: No Status: Chronic Assessment and plan: Continue levothyroxine Qualifiers: Hypothyroidism type: unspecified Qualified Code(s): E03.9 - Hypothyroidism , unspecified (9) Morbid obesity with BMI of 40.0-44.9, adult Current Visit: No Status: Chronic Assessment and plan: Lifestyle modifications (10) DVT prophylaxis Current Visit: No Status: Acute Assessment and plan: Subcutaneous Lovenox - Time Spent With Patient Total time spent is greater than 50% in coordination of care (as documented) at patient's floor/unit and/or counseling patient: - Subjective Interval history: Patient who presents with bilateral lower extremity cellulitis reports of worsening bilateral lower extremity erythema and edema - Constitutional Vitals: Temp Pulse Resp BP Pulse Ox 97.9 F 89 17 99/62 96 03/26/18 16:21 03/26/18 16:21 03/26/18 16:21 03/26/18 16:21 03/26/18 16:21 General appearance: Present: no acute distress - Respiratory Respiratory exam: Present: CTAB. Absent: accessory muscle use, rales, rhonchi, wheezes - Cardiovascular Cardiovascular exam: Present: RRR, +S1, +S2. Absent: diastolic murmur, gallop, rubs, systolic murmur - Expanded Lower Extremities Exam Lower Leg exam: Present: erythema, swelling (Bilateral) - Expanded Skin Exam Description of rash: Present: erythematous (Patient with ulcerated lesion on left heel) Internal Medicine: Result - Labs CBC & Chem 7: 03/26/18 00:49 03/26/18 00:49 Labs: Short CBC 03/26/18 Range/Units 00:49 WBC 10.4 (4.3-11.1) K/mcL Hgb 10.7 L D (12.9-16.9) g/dL Hct 34.4 L (37.5-50.1) % Plt Count 384 (140-400) K/mcL BMP 03/26/18 00:49 Sodium 135 L Potassium 3.4 L Chloride 101 Carbon Dioxide 24 BUN 14 Creatinine 0.89 Glucose 120 H Calcium 9.0 Liver Function 03/26/18 Range/Units 00:49 Total Bilirubin 0.6 (0.3-1.0) mg/dL AST 20 (13-39) Units/L ALT 14 (7-52) Units/L Alkaline Phosphatase 80 (34-104) Units/L Albumin 3.7 (3.5-5.7) g/dL Consult Discharge Plan - Plan Referrals: Maria Elena An MD [Primary Care Provider] -
[2018-03-27] MEDS: *HR* Enoxaparin 40 MG/0.4 ML SYRINGE SQ SCH (05:48)
--- NOTE | 2018-03-27 08:37 | Infectious Disease Progress No ---
Date of Encounter: 03/27/18 Time of Encounter: 08:35 - Assessment and Plan (1) Cellulitis Current Visit: Yes Status: Chronic Patient met one Sirs criteria since admission. Right lower extremity CT showed extensive soft tissue swelling, especially within the subcutaneous fat most compatible with cellulitis. No focal fluid collections. CT of the left lower extremity showed extensive soft tissue swelling involving lower extremity especially inferior to the knee, possible ulceration of the lateral malleolus and heal, soft tissue swelling compatible with cellulitis. No focal fluid collections. Creatinine clearance: 137 Plan: blood cultures x2 pending urine culture pending wound cultures pending Unusure if this is cellulitis vs. lymphedema, as patient did not have elevated WBC, did not meet sepsis criteria. will stop all ABX for now and observe. If temperature is over 100, please re order blood cultures x2. continue with wound care. Qualifiers: Site of cellulitis: extremity Site of cellulitis of extremity: lower extremity Laterality: unspecified laterality Qualified Code(s): L03.119 - Cellulitis of unspecified part of limb (2) Bilateral lower extremity edema Current Visit: Yes Status: Chronic (3) Diabetes Current Visit: No Status: Chronic Qualifiers: Diabetes mellitus type: type 2 Diabetes mellitus middle or intermediate school principal insulin use: without middle or intermediate school principal use Diabetes mellitus complication status: with skin complications Diabetes mellitus complication detail: with other skin ulcer Qualified Code(s): E11.622 - Type 2 diabetes mellitus with other skin ulcer (4) Diastolic CHF, chronic Current Visit: No Status: Chronic Management per primary (5) Essential hypertension Current Visit: No Status: Chronic Per primary (6) S/P ileal conduit Current Visit: Yes Status: Acute history of bladder cancer with complete ladder resection and placement of ileal conduit. (7) Spina bifida Current Visit: No Status: Chronic Qualifiers: Spinal region: lumbosacral Presence of hydrocephalus: unspecified hydrocephalus presence Qualified Code(s): Q05.7 - Lumbar spina bifida without hydrocephalus - Subjective Interval history: 48-year-old male evaluated at bedside. He was afebrile overnight. He denies nausea, vomiting, diarrhea, fever, chills, chest pain, shortness of breath. Infect Dis PN-Objective Data - Labs CBC & Chem 7: 03/26/18 00:49 03/26/18 00:49 Labs: Laboratory Results - last 24 hr 0403/26/18 03/26/18 00:11 11:54 16:23 POC Glucose 115 H 127 H 106 H 03/26/18 20:23 POC Glucose 151 H Exam - Constitutional Vitals: Temp Pulse Resp BP Pulse Ox 98.3 F 75 18 109/67 96 03/27/18 06:55 03/27/18 06:55 03/27/18 06:55 03/27/18 06:55 03/27/18 06:55 General appearance: disheveled, morbidly obese, no acute distress - Head Head exam: Present: atraumatic - Respiratory Respiratory exam: Present: CTAB - Cardiovascular Cardiovascular exam: Present: RRR, +S1, +S2 - GI/Abdominal GI/Abdominal exam: Present: distended, normal bowel sounds, soft. Absent: tenderness Additional comments: Multiple scars present from prior surgeries. Abdomen appears erythematous. Ileal conduit in place on the right side of the abdomen with ostomy bag filled with dark colored urine - Extremities Exam Additional comments: Bilateral lower extremities are significantly edematous +3 pitting edema, areas of erythema. Going also present in the left lateral malleolus, stage II pressure ulcer present on the left heel with subcutaneous tissue apparent. - Neurological Exam Neurological exam: Present: alert, oriented X3 - Psychiatric Psychiatric exam: Present: normal affect, normal mood Consult Discharge Plan - Plan Referrals: Maria Elena An MD [Primary Care Provider] - 04/02/18 1:45 pm - Attending Attestation I examined this patient and my medical decision-making was reviewed with the Resident Physician. I agree with the documented findings, disposition and treatment plan as described except to the extent set forth below. addd cbc for morning labs
[2018-03-27] MEDS: Multivit/Ca/Min/Fe/FA 1 TAB TABLET PO SCH (08:54)
[2018-03-27] MEDS: Lactobacillus 1 EACH CAP.SPRINK PO SCH (08:54)
[2018-03-27] MEDS: Magnesium Oxide 400 MG TABLET PO SCH ×2 (08:54→21:42)
[2018-03-27] MEDS: Cholecalciferol (D-3) 1,000 UNIT TABLET PO SCH (08:54)
[2018-03-27] MEDS: Aspirin 81 MG TAB.CHEW PO SCH (08:54)
[2018-03-27] MEDS: Loratadine 10 MG TABLET PO SCH (08:55)
--- NOTE | 2018-03-27 13:54 | Internal Med Progress Note ---
<Kareem Espinal - Last Filed: 03/27/18 15:20> Date of Encounter: 03/27/18 Time of Encounter: 10:07 - Assessment and plan (1) Cellulitis of left lower extremity Current Visit: Yes Status: Acute Assessment and plan: -CT of the left lower extremity showed extensive soft tissue swelling involving the lower extremity which is compatible to cellulitis versus lymphedema - Patient afebrile and now without leukocytosis. Vital signs unremarkable - Infectious disease consulted with recommendations to suspend IV antibiotics at this point and monitor, day #2 - Patient asymptomatic and physical exam is not impressive for severe cellulitis at this time - He does have a very significant history of [id number] organisms on wound and urine cultures - Blood, urine, wound cultures pending - History of spina bifida, is able to ambulate with the assistance of crutches however admits to being bedbound often Plan - Continue holding antibiotics in the setting of suspected lymphedema versus less likely cellulitis - Continue to monitor for worsening signs of infection - Patient should spike a fever, please obtain blood cultures 2 per infectious disease - ID following, appreciate recommendations - We will add Regino bandaging for symptomatic lymphedema support (2) Hyperlipidemia Current Visit: Yes Status: Chronic Assessment and plan: Continue home medications Qualifiers: Hyperlipidemia type: pure hypercholesterolemia Qualified Code(s): E78.00 - Pure hypercholesterolemia, unspecified; E78.0 - Pure hypercholesterolemia (3) Hypothyroidism Current Visit: No Status: Chronic Assessment and plan: Continue levothyroxine Qualifiers: Hypothyroidism type: unspecified Qualified Code(s): E03.9 - Hypothyroidism , unspecified (4) Decubitus ulcer of left buttock Current Visit: Yes Status: Chronic Assessment and plan: Wound care consulted and appreciate recommendations Qualifiers: Pressure ulcer stage: stage 2 Qualified Code(s): L89.322 - Pressure ulcer of left buttock, stage 2 (5) Morbid obesity with BMI of 40.0-44.9, adult Current Visit: Yes Status: Chronic Assessment and plan: Lifestyle modifications (6) Decubitus ulcer of left thigh, stage 3 Current Visit: No Status: Chronic Assessment and plan: Wound care consult as above (7) Bilateral lower extremity edema Current Visit: Yes Status: Chronic Assessment and plan: As above for cellulitis Chronic in nature (8) DVT prophylaxis Current Visit: Yes Status: Acute Assessment and plan: Subcutaneous Lovenox (9) Pressure ulcer of left heel, stage 3 Current Visit: Yes Status: Chronic Assessment and plan: -CT of left lower extremity showed possible ulceration of the level at the lateral malleolus and at the heel - Wound care consulted and appreciate recommendations - Continue supportive management, does not appear to be infected at this time - Patient states that this is a chronic wound. He is aware of precautionary measures to prevent worsening including limb elevation, frequent dressing changes - Time Spent With Patient Total time spent is greater than 50% in coordination of care (as documented) at patient's floor/unit and/or counseling patient: 25 - 35 minutes - Subjective Interval history: Patient seen and examined at bedside this morning. States that overall he is doing well with no complaints of fevers, chills, erythema, redness of his left lower extremity. States that his only concern this time is some swelling in bilateral lower extremity. He has been told past that this may be secondary to his diabetes. We did have a discussion regarding possible etiologies and management of his possible lymphedema. He was instructed that he can use Regino wraps, limb elevation for symptomatic management. - Constitutional Vitals: Temp Pulse Resp BP Pulse Ox 98.2 F 82 16 93/63 95 03/27/18 11:41 03/27/18 11:41 03/27/18 11:41 03/27/18 11:41 03/27/18 11:41 General appearance: Present: no acute distress Exam: Gen.: Vitals noted. No acute distress. AAOx3 more resting comfortably in bed HEENT: PERRL/EOMI, oropharynx clear, Normocephalic, atraumatic, moist mucous membranes Cardiac: RRR, no murmur, +S1/S2 Pulmonary: CTA bilaterally, no wheezes, rales or rhonchi, equal chest expansion Abdomen: soft, nontender, BS noted, no guarding Extremities: Bilateral lower extremity edema worse on the left compared to right. Small amount of erythema on left lower extremity without increased warmth or signs of drainage. nontender calf, no cyanosis or clubbing Neuro: A&Ox3, moves all extremities, no focal deficits Psych: Appropriate mood and behavior Internal Medicine: Result - Labs CBC & Chem 7: 03/26/18 00:49 03/26/18 00:49 Consult Discharge Plan - Plan Referrals: Maria Elena An MD [Primary Care Provider] - 04/02/18 1:45 pm <Alyse Truong - Last Filed: 03/27/18 20:27> Date of Encounter: 03/27/18 - Assessment and plan (1) Hyperlipidemia Current Visit: Yes Status: Chronic Qualifiers: Hyperlipidemia type: pure hypercholesterolemia Qualified Code(s): E78.00 - Pure hypercholesterolemia, unspecified; E78.0 - Pure hypercholesterolemia (2) DVT prophylaxis Current Visit: Yes Status: Acute (3) Cellulitis of left lower extremity Current Visit: Yes Status: Acute (4) Hypothyroidism Current Visit: No Status: Chronic Qualifiers: Hypothyroidism type: unspecified Qualified Code(s): E03.9 - Hypothyroidism , unspecified (5) Decubitus ulcer of left buttock Current Visit: Yes Status: Chronic Qualifiers: Pressure ulcer stage: stage 2 Qualified Code(s): L89.322 - Pressure ulcer of left buttock, stage 2 (6) Morbid obesity with BMI of 40.0-44.9, adult Current Visit: Yes Status: Chronic (7) Decubitus ulcer of left thigh, stage 3 Current Visit: No Status: Chronic (8) Bilateral lower extremity edema Current Visit: Yes Status: Chronic (9) Pressure ulcer of left heel, stage 3 Current Visit: Yes Status: Chronic - Time Spent With Patient Total time spent is greater than 50% in coordination of care (as documented) at patient's floor/unit and/or counseling patient: - Constitutional Vitals: Temp Pulse Resp BP Pulse Ox 98.4 F 96 16 102/69 94 03/27/18 19:58 03/27/18 19:58 03/27/18 19:58 03/27/18 19:58 03/27/18 19:58 Internal Medicine: Result - Labs CBC & Chem 7: 03/26/18 00:49 03/26/18 00:49 - Attending Attestation I performed a history and physical examination of the patient and discussed his/ her management with the resident. I reviewed the residents note and agree with the documented findings and plan of care.
[2018-03-27] MEDS ORDERED: *HR* Dextrose 50 % in Water (Syg) 50 ML SYRINGE IVP PRN (17:58)
[2018-03-27] MEDS ORDERED: D5% in Water 1,000 ML IVC PRN (17:58)
[2018-03-27] MEDS ORDERED: Dextrose Gel 15 GM/37.5 ML TUBE PO PRN ×2 (17:58)
[2018-03-27] MEDS ORDERED: Insulin LISPRO 300 UNITS/3 ML VIAL SQ SCH (21:00)
[2018-03-28 04:05] LABS: Basophils # 0.1 K/mcL (0.0-0.2); Basophils % 0.8 %; Eosinophils # 0.5 K/mcL (0.0-0.6); Eosinophils % 6.3 %; Hematocrit 31.6 % (37.5-50.1); Hemoglobin 9.8 g/dL (12.9-16.9); Immature Granulocytes % 0.3 % (0-4); Lymphocytes # 1.7 K/mcL (0.6-4.6); Lymphocytes % 23.3 %; Mean Corpuscular Hemoglobin 26.6 pg (28.0-33.3); Mean Corpuscular Volume 85.6 fL (83.0-100.0); Mean Platelet Volume 10.2 fL (9.4-12.4); Monocytes # 0.7 K/mcL (0.0-1.3); Neutrophils # 4.4 K/mcL (1.6-8.9); Platelet Count 340 K/mcL (140-400); Red Blood Count 3.69 M/mcL (4.19-5.50); Red Cell Distribution Width 16.6 % (11.5-14.5); Segmented Neutrophils % 60.3 %
[2018-03-28] MEDS: *HR* Enoxaparin 40 MG/0.4 ML SYRINGE SQ SCH (06:13)
[2018-03-28] MEDS: Insulin LISPRO 300 UNITS/3 ML VIAL SQ SCH ×2 (09:19→12:26)
[2018-03-28] MEDS: Lactobacillus 1 EACH CAP.SPRINK PO SCH (10:15)
[2018-03-28] MEDS: Cholecalciferol (D-3) 1,000 UNIT TABLET PO SCH (10:15)
[2018-03-28] MEDS: Loratadine 10 MG TABLET PO SCH (10:15)
[2018-03-28] MEDS: Magnesium Oxide 400 MG TABLET PO SCH (10:15)
[2018-03-28] MEDS: Multivit/Ca/Min/Fe/FA 1 TAB TABLET PO SCH (10:15)
[2018-03-28] MEDS: Aspirin 81 MG TAB.CHEW PO SCH (10:15)
--- NOTE | 2018-03-28 14:00 | Discharge Summary ---
- NOTES TO OUTPATIENT PROVIDER Notes to Outpatient Provider: Both wound and urine culture positive for Proteus only susceptible to carbapanems and Zosyn. Infectious disease consulted as believes this to be colonization. Orders not resulted at time of discharge: Pending orders 03/26/18 01:50 Culture,Wound [RM] Stat 03/28/18 11:37 Iron Profile Routine Date of Encounter: 03/28/18 Time of Encounter: 13:58 - Discharge Diagnosis (1) Cellulitis of left lower extremity Priority: Secondary Status: Ruled-out Assessment and Plan: -CT of the left lower extremity showed extensive soft tissue swelling involving the lower extremity which is compatible to cellulitis versus lymphedema - Patient afebrile and now without leukocytosis. Vital signs unremarkable - Infectious disease consulted with recommendations to suspend IV antibiotics at this point and monitor, day #2 - Patient asymptomatic and physical exam is not impressive for severe cellulitis at this time - He does have a very significant history of urtpr-pznb-[id number] organisms on wound and urine cultures - Blood, urine, wound cultures pending - History of spina bifida, is able to ambulate with the assistance of crutches however admits to being bedbound often Plan - Continue holding antibiotics in the setting of suspected lymphedema versus less likely cellulitis - Continue to monitor for worsening signs of infection - Patient should spike a fever, please obtain blood cultures 2 per infectious disease - ID following, appreciate recommendations - We will add Regino bandaging for symptomatic lymphedema support 03/28/18: Wound and urine cultures returning with Proteus sensitive to carbapanems and Zosyn. Infectious disease believes this to be colonization and patient is clinically improved. We will treat for lymphedema with Regino bandages and no antibiotic therapy is needed at this time. (2) Pressure ulcer of left heel, stage 3 Priority: Secondary Status: Chronic Assessment and Plan: -CT of left lower extremity showed possible ulceration of the level at the lateral malleolus and at the heel - Wound care consulted and appreciate recommendations - Continue supportive management, does not appear to be infected at this time - Patient states that this is a chronic wound. He is aware of precautionary measures to prevent worsening including limb elevation, frequent dressing changes (3) Hyperlipidemia Priority: Secondary Status: Chronic Assessment and Plan: Continue home medications Qualifiers: Hyperlipidemia type: pure hypercholesterolemia Qualified Code(s): E78.00 - Pure hypercholesterolemia, unspecified; E78.0 - Pure hypercholesterolemia (4) Hypothyroidism Priority: Secondary Status: Chronic Assessment and Plan: Continue levothyroxine Qualifiers: Hypothyroidism type: unspecified Qualified Code(s): E03.9 - Hypothyroidism , unspecified (5) Decubitus ulcer of left buttock Priority: Secondary Status: Chronic Assessment and Plan: Wound care consulted and appreciate recommendations Qualifiers: Pressure ulcer stage: stage 2 Qualified Code(s): L89.322 - Pressure ulcer of left buttock, stage 2 (6) Morbid obesity with BMI of 40.0-44.9, adult Priority: Secondary Status: Chronic Assessment and Plan: Lifestyle modifications (7) Decubitus ulcer of left thigh, stage 3 Priority: Secondary Status: Chronic Assessment and Plan: Wound care consult as above (8) Bilateral lower extremity edema Priority: Primary Status: Chronic Assessment and Plan: As above for cellulitis Chronic in nature (9) DVT prophylaxis Priority: Secondary Status: Acute Assessment and Plan: [facility] course: Mr. Leone is a 48 year old male with past medical history of spina bifida, neurogenic bladder, CHF, CVA, diabetes, recurrent cellulitis and urinary tract infections presented to emergency department with a chief complaint of bilateral lower extremity edema. He was recently admitted in [place] for urinary tract infection, DIO, cellulitis and was treated with IV antibiotics. 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 He denies any associated symptoms of fevers, chills, pain. Vital signs in the emergency department were significant for tachycardia of 112, BP of 150/94, Otherwise unremarkable. Lab results significant for mild leukocytosis of 11.4, hypokalemia of 3.3, otherwise unremarkable. CT of the lower extremities performed emergency department showing dense is soft tissue swelling in bilateral lower extremity with no evidence of bony involvement or fluid collections. Infectious disease was consulted in the emergency department. He is admitted to hospital service further evaluation and management of possible lower extremity cellulitis. During course of hospital stay, patient did gradually improve. He was treated with vancomycin and Rocephin 1 dose. Infectious disease evaluated the patient and believes this might be secondary to lymphedema as this is less likely cellulitis given no WBC elevation, afebrile, physical exam findings. He was monitored for an additional 2 days after discontinuing antibiotics inpatient reported improvement of swelling in symptoms with Regino wrap bandages. Wound and urine culture did grow Proteus which was sensitive to only Zosyn and carbapanems , however infectious disease believes this to be colonization given that is his symptoms did not worsen and may have even improved without antibiotic treatment. He will be discharged home in stable condition and instructed to return to the emergency department if he does develop symptoms of infection including fevers, chills, pain, swelling, redness, drainage of either wound or urinary symptoms. All questions were answered. He will require home health on discharge as previous living situation. Discharge discussed with: patient - Time Spent with Patient Total time spent providing and/or coordinating discharge services: - Discharge Medications Home Medications: Cholecalciferol (Vitamin D3) [Vitamin D3] 5,000 unit PO DAILY 11/12/16 [History] Fluticasone Propionate [Flovent Hfa] 1 - 2 puff IH BID 11/12/16 [History] Levothyroxine [Synthroid] 200 mcg PO DAILY 11/12/16 [History] Lactobacillus Acidophilus/Fos [Acidophilus Probiotic Tablet] 1 cap PO DAILY 06/17 [History] Loratadine [Claritin] 10 mg PO DAILY 03/08/17 [History] Multivitamin [One Daily Multivitamin] 1 tab PO DAILY 03/08/17 [History] Enalapril Maleate [Vasotec] 10 mg PO DAILY 03/23/17 [History] Omeprazole [PriLOSEC] 20 mg PO DAILY 08/25/17 [History] Atorvastatin [Lipitor] 40 mg PO HS 11/14/17 [History] Aspirin 81 mg PO DAILY #30 tab.chew 01/17/18 [Rx] Furosemide [Lasix] 40 mg PO DAILY 7 Days #7 tablet 01/17/18 [Rx] Metoprolol [Lopressor] 12.5 mg PO BID #30 tablet 01/17/18 [Rx] Nystatin POWDER [Nystop] 1 appl TP BID #1 bottle 01/31/18 [Rx] Magnesium Oxide [Mag-Oxide] 400 mg PO BID 03/25/18 [History] Allergies/Adverse Reactions: 3 Allergy/AdvReac Type Severity Reaction Status Date / Time adhesive Allergy Blister Verified 03/25/18 19:26 Amoxicillin Allergy Hives Verified 04/24/18 19:26 Oxaprozin [From Daypro] AdvReac Diarrhea Verified 03/25/18 19:26 Date of admission: 03/25/18 23:31 Primary care physician: Maria Elena An Consults: 03/25/18 23:35 Consult to Infectious Diseases [CONS] Routine Consulting Provider: Infectious Disease Yanet Reason for Consult: cellulitis/osteomyelitis Call Completed: No 03/26/18 09:01 Consult to Invasive Line Access Team [CONS] Routine Reason for Consult: limited vascular access Line Type: EPIV Time Notified: 09:02 Call Completed: Yes 03/26/18 11:37 Consult to Wound Care [CONS] Routine Reason for Consult: wound to L. heel Time Notified: 11:37 Call Completed: Yes Discharging clinician: Kareem Espinal Anticipated date of discharge: 03/28/18 - Constitutional Vitals: Temp Pulse Resp BP Pulse Ox 98.2 F 89 16 117/70 96 03/28/18 11:06 03/28/18 11:06 03/28/18 11:06 03/28/18 11:06 03/28/18 11:06 General appearance: Present: no acute distress Exam: Gen.: Vitals noted. No acute distress. AAOx3, resting comfortably in bed HEENT: PERRL/EOMI, oropharynx clear, Normocephalic, atraumatic Cardiac: RRR, no murmur, +S1/S2 Pulmonary: CTA bilaterally, no wheezes, rales or rhonchi, equal chest expansion Abdomen: soft, nontender, BS noted, no guarding Extremities: BLE edema, nontender calf, no cyanosis or clubbing - Bilateral lower extremity edema, improved with Regino wrap bandages - No evidence of erythema, warmth, discharge. Left pressure ulcer on heel stable Neuro: A&Ox3, moves all extremities, no focal deficits Psych: Appropriate mood and behavior - Patient Status Disposition: Home Health Service Condition: Good Functional capacity at discharge: uses cane/walker Overall status at discharge: patient is progressing back to baseline - Discharge Instructions Follow Up With: Maria Elena An MD [Primary Care Provider] - 04/02/18 1:45 pm Additional Instructions: Please follow up with her primary care physician upon discharge. He may use Regino wraps for symptomatic control of her swelling. The infection that was found in your wound and urine is likely a non-harmful bacteria however if she begin to experience any symptoms of fevers, chills, burning with urination please return to the emergency department. - Diet and Activity Activity: increase activity as tolerated, resume usual activities as tolerated Diet: advance to your usual diet
--- NOTE | 2018-03-28 14:07 | Physician Discharge Referral ---
Home Health/Hosp Referral Info Transfer to: Home Health Provider in Charge Post Discharge: PCP - Diagnosis (1) Cellulitis of left lower extremity Priority: Secondary Status: Ruled-out (2) Pressure ulcer of left heel, stage 3 Priority: Secondary Status: Chronic (3) Hyperlipidemia Priority: Secondary Status: Chronic (4) Hypothyroidism Priority: Secondary Status: Chronic (5) Decubitus ulcer of left buttock Priority: Secondary Status: Chronic (6) Morbid obesity with BMI of 40.0-44.9, adult Priority: Secondary Status: Chronic (7) Decubitus ulcer of left thigh, stage 3 Priority: Secondary Status: Chronic (8) Bilateral lower extremity edema Priority: Primary Status: Chronic (9) DVT prophylaxis Priority: Secondary Status: Acute - Respiratory Orders Smoking Cessation: Smoking cessation has been advised. For more information, call the [employer] Tobacco Quit Line at 1-359-ODSH-NOW. - Diet/Nutrition Diet/Nutrition Orders: No Concentrated Sweets - Activity Activity Orders: Ambulate - Services Needed Following services are medically necessary services: Nursing, Home Health Aide, Physical Therapy, Occupational Therapy - Transfer Medications Home Medications: Cholecalciferol (Vitamin D3) [Vitamin D3] 5,000 unit PO DAILY 11/12/16 [History] Fluticasone Propionate [Flovent Hfa] 1 - 2 puff IH BID 11/12/16 [History] Levothyroxine [Synthroid] 200 mcg PO DAILY 11/12/16 [History] Lactobacillus Acidophilus/Fos [Acidophilus Probiotic Tablet] 1 cap PO DAILY 06/17 [History] Loratadine [Claritin] 10 mg PO DAILY 03/08/17 [History] Multivitamin [One Daily Multivitamin] 1 tab PO DAILY 03/08/17 [History] Enalapril Maleate [Vasotec] 10 mg PO DAILY 03/23/17 [History] Omeprazole [PriLOSEC] 20 mg PO DAILY 08/25/17 [History] Atorvastatin [Lipitor] 40 mg PO HS 11/14/17 [History] Aspirin 81 mg PO DAILY #30 tab.chew 01/17/18 [Rx] Furosemide [Lasix] 40 mg PO DAILY 7 Days #7 tablet 01/17/18 [Rx] Metoprolol [Lopressor] 12.5 mg PO BID #30 tablet 01/17/18 [Rx] Nystatin POWDER [Nystop] 1 appl TP BID #1 bottle 01/31/18 [Rx] Magnesium Oxide [Mag-Oxide] 400 mg PO BID 03/25/18 [History] Allergies/Adverse Reactions: 3 Allergy/AdvReac Type Severity Reaction Status Date / Time adhesive Allergy Blister Verified 03/25/18 19:26 Amoxicillin Allergy Hives Verified 03/25/18 19:26 Oxaprozin [From Daypro] AdvReac Diarrhea Verified 03/25/18 19:26 Certification: Further, I certify that my clinical findings support that this patient is homebound (i.e. absences from home require considerable and taxing effort and are for medical reasons or [employer] services or infrequently or short duration when for other reasons) because: Homebound Reason: Patient requires assistance of a person or device to safely leave home, Leaving home requires considerable and taxing effort due to condition Attestation: My signature below is to certify that this patient is under my care and that I, or nurse practitioner, or a physician's resident assistant cna working with me, has a face-to -face encounter with this patient.
[2018-03-28 14:43] LABS: % Iron Saturation 6 % (20-55); Iron 21 mcg/dL (65-175); Transferrin 241 mg/dL (203-362)
[2018-03-28 14:46] VITALS: BP 98/59
== END 2018-03-28 16:40 | disposition home health service (06) | DRG 602 ==
LOC: EMEROO 15:05 → 3NENU 15:05 → SUATTDRO 23:31 → 3ANU 03-26 15:50
PROVIDERS: ADMIT Internal Medicine; ATTEND Hospitalist

== ENCOUNTER 2018-04-23 23:32 | Inpatient (IN) ==
[2018-04-24] MEDS ORDERED: Ondansetron 4 MG/2 ML VIAL IVP ONE (04:59)
[2018-04-24] MEDS ORDERED: 0.9 % Sodium Chloride 1,000 ML IVC ONE (04:59)
[2018-04-24 06:41] LABS: Alanine Aminotransferase 16 Units/L (7-52); Albumin 4.2 g/dL (3.5-5.7); Albumin/Globulin Ratio 0.9 (1.1-2.2); Alkaline Phosphatase 99 Units/L (34-104); Aspartate Amino Transferase 17 Units/L (13-39); BUN/Creatinine Ratio 16 (6-26); Bilirubin,Direct 0.1 mg/dL (0.0-0.2); Bilirubin,Indirect 0.5 mg/dL (0.0-1.2); Bilirubin,Total 0.6 mg/dL (0.3-1.0); Blood Urea Nitrogen 16 mg/dL (6-20); Calcium 9.6 mg/dL (8.6-10.3); Carbon Dioxide 27 mEq/L (23-29); Chloride 96 mEq/L (98-107); Globulin 4.6 g/dL (2.4-3.5); Glucose 183 mg/dL (70-105); Lipase 52 Units/L (11-82); Osmolality,Calculated 286 (280-300); Sodium 135 mEq/L (136-145); Total Protein 8.8 g/dL (6.4-8.9); eGFR For African Americans > 60 (> 60); eGFR For Non-African Americans > 60 (> 60)
[2018-04-24 06:42] LABS: Basophils # 0.1 K/mcL (0.0-0.2); Basophils % 0.6 %; Eosinophils # 0.3 K/mcL (0.0-0.6); Eosinophils % 1.9 %; Hemoglobin 12.3 g/dL (12.9-16.9); Immature Granulocytes % 0.4 % (0-4); Lymphocytes # 1.1 K/mcL (0.6-4.6); Lymphocytes % 8.3 %; Mean Corpuscular HGB Conc 31.5 g/dL (31.6-35.5); Mean Corpuscular Hemoglobin 26.4 pg (28.0-33.3); Mean Corpuscular Volume 83.7 fL (83.0-100.0); Mean Platelet Volume 11.1 fL (9.4-12.4); Monocytes % 7.2 %; Neutrophils # 11.2 K/mcL (1.6-8.9); Platelet Count 346 K/mcL (140-400); Red Blood Count 4.66 M/mcL (4.19-5.50); Red Cell Distribution Width 15.7 % (11.5-14.5); Segmented Neutrophils % 81.6 %
[2018-04-24 06:44] LABS: Troponin I 1.25 ng/mL (< 0.04)
--- NOTE | 2018-04-24 07:49 | Emergency Department Note ---
Disposition Clinical Impression: SOB (shortness of breath), Cough, Elevated troponin Nausea and vomiting Qualifiers: Vomiting type: unspecified Vomiting Intractability: unspecified Qualified Code( s): R11.2 - Nausea with vomiting, unspecified Diarrhea Qualifiers: Diarrhea type: unspecified type Qualified Code(s): R19.7 - Diarrhea, unspecified Chest pain Qualifiers: Chest pain type: unspecified Qualified Code(s): R07.9 - Chest pain, unspecified Disposition: Still a Patient Condition: Fair Referrals: Maria Elena An MD [Primary Care Provider] - Forms: Work/School Release, ED Satisfaction Letter General Adult HPI - General Chief complaint: ED Upper Respiratory Infection Stated complaint: "flu like sx" Time Seen by Provider: 04/24/18 04:18 Source: patient, EMS Limitations: no limitations Nursing Notes Reviewed: Yes Vital Signs Reviewed: Yes - History of Present Illness HPI Narrative: 48-year-old male presents to the emergency department complaining of flulike symptoms for 3 days prior to arrival. He complains of nausea and vomiting and diarrhea. He complains of a cough with some white sputum production. Possible subjective low-grade fever. Some pleuritic chest pain with coughing and deep breathing. Mild shortness of breath. Patient has a history of chronic multiple medical problems. 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 Pt Subjective Complaint: Flulike symptoms Onset (ago): day(s) (3) Location: chest, abdomen Pain Severity: moderate Quality: aching, dull Consistency: intermittent, Worsening Improves with: nothing Worsens with: nothing Associated symptoms: Reports: chest pain, cough, diaphoresis, fever/chills, malaise, nausea/vomiting, shortness of breath, weakness Treatments Prior to Arrival: none - Related Data Home Medications Medication Instructions Recorded Confirmed Cholecalciferol (Vitamin D3) 5,000 unit PO DAILY 11/12/16 01/26/18 [Vitamin D3] Fluticasone Propionate [Flovent 1 - 2 puff IH BID 11/12/16 01/26/18 Hfa] Levothyroxine [Synthroid] 200 mcg PO DAILY 11/12/16 03/25/18 Lactobacillus Acidophilus/Fos 1 cap PO DAILY 03/08/17 01/26/18 [Acidophilus Probiotic Tablet] Loratadine [Claritin] 10 mg PO DAILY 03/08/17 01/26/18 Multivitamin [One Daily 1 tab PO DAILY 03/08/17 01/26/18 Multivitamin] Enalapril Maleate [Vasotec] 10 mg PO DAILY 03/23/17 01/26/18 Omeprazole [PriLOSEC] 20 mg PO DAILY 08/25/17 01/26/18 Atorvastatin [Lipitor] 40 mg PO HS 11/14/17 01/26/18 Magnesium Oxide [Mag-Oxide] 400 mg PO BID 03/25/18 03/25/18 Previous Rx's Medication Instructions Recorded Aspirin 81 mg PO DAILY #30 tab.chew 01/17/18 Furosemide [Lasix] 40 mg PO DAILY 7 Days #7 tablet 01/17/18 Metoprolol [Lopressor] 12.5 mg PO BID #30 tablet 01/17/18 Nystatin POWDER [Nystop] 1 appl TP BID #1 bottle 01/31/18 Allergies Allergy/AdvReac Type Severity Reaction Status Date / Time adhesive Allergy Blister Verified 03/25/18 19:26 Amoxicillin Allergy Hives Verified 03/25/18 19:26 Oxaprozin [From Daypro] AdvReac Diarrhea Verified 03/25/18 19:26 All systems ED: reviewed and negative except as stated. Constitutional: Reports: fever, chills Cardiovascular: Reports: chest pain Respiratory: Reports: cough, dyspnea Gastrointestinal: Reports: abdominal pain, nausea, vomiting, diarrhea. Denies: hematemesis, melena, hematochezia Musculoskeletal: Reports: back pain Integumentary: Denies: rash, lesions Neurological: Reports: weakness Endocrine: Reports: fatigue Past Medical History - Past Medical History Medical history: Reports: asthma, cancer, CHF, CVA, diabetes, GERD, hyperlipidemia, hypertension, malignancy, migraine, myocardial infarction, thyroid disease, TIA Surgical history: Reports: appendectomy, orthopedic, other, vasectomy, other Psychiatric history: Reports: depression - Social History Smoking Status: Never smoker Smokeless Tobacco Status: No Alcohol use: Reports: rarely Drug use: Reports: none Physical Exam - General Limitations: no limitations General appearance: alert, in no apparent distress - Head Head exam: atraumatic, normocephalic, normal inspection - Eye Eye exam: Present: normal appearance - ENT ENT exam: normal exam, normal oropharynx, mucous membranes moist - Neck Neck exam: Present: normal inspection, full ROM, trachea midline. Absent: tenderness, meningismus - Chest Chest inspection: Present: normal inspection, symmetric chest wall rise. Absent : tenderness - Respiratory Respiratory exam: Present: normal lung sounds bilaterally. Absent: respiratory distress, wheezes - Cardiovascular Cardiovascular exam: Present: normal rhythm, tachycardia, normal heart sounds - Abdominal Exam Abdominal exam: Present: soft, tenderness, hyperactive bowel sounds. Absent: distention, guarding, rebound, rigidity Abdominal tenderness: Present: diffuse, mild - Extremities Exam Extremities exam: Present: pedal edema - Back Exam Back exam: Absent: CVA tenderness (R), CVA tenderness (L) - Neurological Exam Neurological exam: Present: alert, oriented X3 - Psychiatric Psychiatric exam: Present: normal affect, normal mood - Skin Skin exam: Present: warm, dry, intact. Absent: cyanosis, diaphoresis Course Course Narrative: Patient with three-day history of nausea vomiting diarrhea abdominal pain. Also some cough and pleuritic chest pain. Lab work ordered. Patient was found to have an elevated troponin of 1.25 however on reviewing his records several months ago his troponin was in the same range. There are no significant changes on his EKG. At shift change patient is still awaiting lab results and is signed out to the community [facility] physician, Dr. Gary. Vital Signs Temperature 98.9 F 04/23/18 23:36 Pulse Rate 119 04/23/18 23:36 Respiratory Rate 20 04/23/18 23:36 Blood Pressure 160/91 04/23/18 23:36 O2 Sat by Pulse Oximetry 96 04/23/18 23:36 Temperature 98.9 F 04/23/18 23:36 Pulse Rate 99 04/24/18 06:33 Respiratory Rate 20 04/24/18 06:33 Blood Pressure 134/78 04/24/18 06:33 O2 Sat by Pulse Oximetry 98 04/24/18 06:33 Oxygen Delivery Oxygen Delivery Room Air Medical Decision Making - Lab Data Lab results reviewed: Yes I reviewed the patient's lab results. Result diagrams: 04/24/18 06:08 04/24/18 06:08 Lab Results 04/24/18 04/24/18 04/24/18 Range/Units 06:08 06:08 07:21 WBC 13.7 H (4.3-11.1) K/mcL RBC 4.66 (4.19-5.50) M/mcL Hgb 12.3 L (12.9-16.9) g/dL Hct 39.0 (37.5-50.1) % MCV 83.7 (83.0-100.0) fL MCH 26.4 L (28.0-33.3) pg MCHC 31.5 L (31.6-35.5) g/dL RDW 15.7 H (11.5-14.5) % Plt Count 346 (140-400) K/mcL MPV 11.1 (9.4-12.4) fL Immature Gran % 0.4 (0-4) % Seg Neutrophils % 81.6 % Lymphocytes % 8.3 % Monocytes % 7.2 % Eosinophils % 1.9 % Basophils % 0.6 % Neutrophils # 11.2 H (1.6-8.9) K/mcL Lymphocytes # 1.1 (0.6-4.6) K/mcL Monocytes # 1.0 (0.0-1.3) K/mcL Eosinophils # 0.3 (0.0-0.6) K/mcL Basophils # 0.1 (0.0-0.2) K/mcL Sodium 135 L (136-145) mEq/L Potassium 3.0 L (3.5-5.1) mEq/L Chloride 96 L (98-107) mEq/L Carbon Dioxide 27 (23-29) mEq/L BUN 16 (6-20) mg/dL Creatinine 1.03 (0.70-1.30) mg/dL Est GFR ( Amer) > 60 (> 60) Est GFR (Non-Af Amer) > 60 (> 60) BUN/Creatinine Ratio 16 (6-26) Glucose 183 H (70-105) mg/dL Calculated Osmolality 286 (280-300) Calcium 9.6 (8.6-10.3) mg/dL Total Bilirubin 0.6 (0.3-1.0) mg/dL Direct Bilirubin 0.1 (0.0-0.2) mg/dL Indirect Bilirubin 0.5 (0.0-1.2) mg/dL AST 17 (13-39) Units/L ALT 16 (7-52) Units/L Alkaline Phosphatase 99 (34-104) Units/L Troponin I 1.25 H* (< 0.04) ng/mL Serum Total Protein 8.8 (6.4-8.9) g/dL Albumin 4.2 (3.5-5.7) g/dL Globulin 4.6 H (2.4-3.5) g/dL Albumin/Globulin Ratio 0.9 L (1.1-2.2) Lipase 52 (11-82) Units/L Specimen Rejected Hemolyzed - Radiology Data Radiology results reviewed: Yes I reviewed the patient's radiology results. Chest X-Ray 04/23/18 23:44 IMPRESSION: No acute cardiopulmonary disease. D/ / Brian Busby MD / Brian Busby MD Interpreting Provider: Brian Busby MD - EKG Data EKG #1 EKG attestation: Yes I reviewed and interpreted this EKG. EKG results narrative: EKG shows a sinus tachycardia with ventricular rate of 100. Possible inferior LA, probably old. No ectopy or arrhythmia noted. No acute ST segment elevations or depressions. No change from previous EKG dated 01/12/2018.
[2018-04-24] MEDS ORDERED: Nystatin POWDER 30 GM BOTTLE TP STA (07:56)
--- NOTE | 2018-04-24 08:00 | Emergency Department Note ---
Disposition Clinical Impression: SOB (shortness of breath), Cough, Elevated troponin Nausea and vomiting Qualifiers: Vomiting type: unspecified Vomiting Intractability: unspecified Qualified Code( s): R11.2 - Nausea with vomiting, unspecified Diarrhea Qualifiers: Diarrhea type: unspecified type Qualified Code(s): R19.7 - Diarrhea, unspecified Chest pain Qualifiers: Chest pain type: unspecified Qualified Code(s): R07.9 - Chest pain, unspecified Disposition: Still a Patient Condition: Fair Referrals: Maria Elena An MD [Primary Care Provider] - Forms: ED Satisfaction Letter, Work/School Release General Adult HPI - General Chief complaint: ED Upper Respiratory Infection Stated complaint: "flu like sx" Time Seen by Provider: 04/24/18 04:18 Source: patient, EMS Limitations: no limitations Nursing Notes Reviewed: Yes Vital Signs Reviewed: Yes - History of Present Illness Location: chest, abdomen Pain Scale: 0 Quality: aching, dull Improves with: nothing Worsens with: nothing Associated symptoms: Reports: chest pain, cough, diaphoresis, fever/chills, malaise, nausea/vomiting, shortness of breath, weakness Treatments Prior to Arrival: none - Related Data Home Medications Medication Instructions Recorded Confirmed Cholecalciferol (Vitamin D3) 5,000 unit PO DAILY 11/12/16 01/26/18 [Vitamin D3] Levothyroxine [Synthroid] 200 mcg PO DAILY 11/12/16 03/25/18 Loratadine [Claritin] 10 mg PO DAILY 03/08/17 01/26/18 Multivitamin [One Daily 1 tab PO DAILY 03/08/17 01/26/18 Multivitamin] Omeprazole [PriLOSEC] 20 mg PO DAILY 08/25/17 01/26/18 Atorvastatin [Lipitor] 40 mg PO HS 11/14/17 01/26/18 Magnesium Oxide [Mag-Oxide] 400 mg PO BID 03/25/18 03/25/18 Bumetanide [Bumetanide] 04/24/18 04/24/18 Previous Rx's Medication Instructions Recorded Aspirin 81 mg PO DAILY #30 tab.chew 01/17/18 Nystatin POWDER [Nystop] 1 appl TP BID #1 bottle 01/31/18 Allergies Allergy/AdvReac Type Severity Reaction Status Date / Time adhesive Allergy Blister Verified 03/25/18 19:26 Amoxicillin Allergy Hives Verified 03/25/18 19:26 Oxaprozin [From Daypro] AdvReac Diarrhea Verified 03/25/18 19:26 Constitutional: Reports: fever, chills Cardiovascular: Reports: chest pain Respiratory: Reports: cough, dyspnea Gastrointestinal: Reports: abdominal pain, nausea, vomiting, diarrhea. Denies: hematemesis, melena, hematochezia Musculoskeletal: Reports: back pain Integumentary: Denies: rash, lesions Neurological: Reports: weakness Endocrine: Reports: fatigue Past Medical History - Past Medical History Medical history: Reports: asthma, cancer, CHF, CVA, diabetes, GERD, hyperlipidemia, hypertension, malignancy, migraine, myocardial infarction, thyroid disease, TIA Surgical history: Reports: appendectomy, orthopedic, other, vasectomy, other Psychiatric history: Reports: depression - Social History Smoking Status: Never smoker Smokeless Tobacco Status: No Alcohol use: Reports: rarely Drug use: Reports: none Physical Exam - General Limitations: no limitations General appearance: alert, in no apparent distress Course - Reevaluation(s) Reevaluation #1: Patient signed out pending labs. Urine sent. Likely colonized as his urine is always colonized. We will check a chest x-ray and CT abdomen and pelvis. Nystatin ordered for her candidiasis under his breast tissue. Family states are concerned because he keeps choking when he eats. Vital signs stable at this time. Patient voices no other concerns. Time: 08:32 - Consultations Consultation #1: Dr Modi accepts for admission Time: 10:25 Vital Signs Temperature 98.9 F 04/23/18 23:36 Pulse Rate 119 04/23/18 23:36 Respiratory Rate 20 04/23/18 23:36 Blood Pressure 160/91 04/23/18 23:36 O2 Sat by Pulse Oximetry 96 04/23/18 23:36 Temperature 98.9 F 04/23/18 23:36 Pulse Rate 99 04/24/18 06:33 Respiratory Rate 20 04/24/18 06:33 Blood Pressure 134/78 04/24/18 06:33 O2 Sat by Pulse Oximetry 98 04/24/18 06:33 Oxygen Delivery Oxygen Delivery Room Air Medical Decision Making - Lab Data Result diagrams: 04/24/18 06:08 04/24/18 06:08 Lab Results 0504/24/18 04/24/18 Range/Units 06:08 06:08 07:21 WBC 13.7 H (4.3-11.1) K/mcL RBC 4.66 (4.19-5.50) M/mcL Hgb 12.3 L (12.9-16.9) g/dL Hct 39.0 (37.5-50.1) % MCV 83.7 (83.0-100.0) fL MCH 26.4 L (28.0-33.3) pg MCHC 31.5 L (31.6-35.5) g/dL RDW 15.7 H (11.5-14.5) % Plt Count 346 (140-400) K/mcL MPV 11.1 (9.4-12.4) fL Immature Gran % 0.4 (0-4) % Seg Neutrophils % 81.6 % Lymphocytes % 8.3 % Monocytes % 7.2 % Eosinophils % 1.9 % Basophils % 0.6 % Neutrophils # 11.2 H (1.6-8.9) K/mcL Lymphocytes # 1.1 (0.6-4.6) K/mcL Monocytes # 1.0 (0.0-1.3) K/mcL Eosinophils # 0.3 (0.0-0.6) K/mcL Basophils # 0.1 (0.0-0.2) K/mcL Sodium 135 L (136-145) mEq/L Potassium 3.0 L (3.5-5.1) mEq/L Chloride 96 L (98-107) mEq/L Carbon Dioxide 27 (23-29) mEq/L BUN 16 (6-20) mg/dL Creatinine 1.03 (0.70-1.30) mg/dL Est GFR ( Amer) > 60 (> 60) Est GFR (Non-Af Amer) > 60 (> 60) BUN/Creatinine Ratio 16 (6-26) Glucose 183 H (70-105) mg/dL Calculated Osmolality 286 (280-300) Lactic Acid (0.5-2.2) mmol/L Calcium 9.6 (8.6-10.3) mg/dL Total Bilirubin 0.6 (0.3-1.0) mg/dL Direct Bilirubin 0.1 (0.0-0.2) mg/dL Indirect Bilirubin 0.5 (0.0-1.2) mg/dL AST 17 (13-39) Units/L ALT 16 (7-52) Units/L Alkaline Phosphatase 99 (34-104) Units/L Troponin I 1.25 H* (< 0.04) ng/mL Serum Total Protein 8.8 (6.4-8.9) g/dL Albumin 4.2 (3.5-5.7) g/dL Globulin 4.6 H (2.4-3.5) g/dL Albumin/Globulin Ratio 0.9 L (1.1-2.2) Lipase 52 (11-82) Units/L Urine Color (Yellow) Urine Clarity (Clear) Urine pH (5.0-8.0) pH Units Ur Specific Morrison (1.010-1.025) Urine Protein (Neg-Trace) mg/dL Urine Glucose (UA) (Normal) mg/dL Urine Ketones (Negative) mg/dL Urine Blood (Negative) Urine Nitrite (Negative) Urine Bilirubin (Negative) Urine Urobilinogen (Normal) mg/dL Ur Leukocyte Esterase (Negative) Urine Microscopic RBC (0-3) per hpf Urine Microscopic WBC (0-3) per hpf Ur Squamous Epith Cells (None-Few) per lpf Urine Bacteria (None-Few) per hpf Ur Culture Indicated? (NO) Specimen Rejected Hemolyzed 04/24/18 04/24/18 Range/Units 07:56 08:22 WBC (4.3-11.1) K/mcL RBC (4.19-5.50) M/mcL Hgb (12.9-16.9) g/dL Hct (37.5-50.1) % MCV (83.0-100.0) fL MCH (28.0-33.3) pg MCHC (31.6-35.5) g/dL RDW (11.5-14.5) % Plt Count (140-400) K/mcL MPV (9.4-12.4) fL Immature Gran % (0-4) % Seg Neutrophils % % Lymphocytes % % Monocytes % % Eosinophils % % Basophils % % Neutrophils # (1.6-8.9) K/mcL Lymphocytes # (0.6-4.6) K/mcL Monocytes # (0.0-1.3) K/mcL Eosinophils # (0.0-0.6) K/mcL Basophils # (0.0-0.2) K/mcL Sodium (136-145) mEq/L Potassium (3.5-5.1) mEq/L Chloride (98-107) mEq/L Carbon Dioxide (23-29) mEq/L BUN (6-20) mg/dL Creatinine (0.70-1.30) mg/dL Est GFR ( Amer) (> 60) Est GFR (Non-Af Amer) (> 60) BUN/Creatinine Ratio (6-26) Glucose (70-105) mg/dL Calculated Osmolality (280-300) Lactic Acid 1.8 (0.5-2.2) mmol/L Calcium (8.6-10.3) mg/dL Total Bilirubin (0.3-1.0) mg/dL Direct Bilirubin (0.0-0.2) mg/dL Indirect Bilirubin (0.0-1.2) mg/dL AST (13-39) Units/L ALT (7-52) Units/L Alkaline Phosphatase (34-104) Units/L Troponin I (< 0.04) ng/mL Serum Total Protein (6.4-8.9) g/dL Albumin (3.5-5.7) g/dL Globulin (2.4-3.5) g/dL Albumin/Globulin Ratio (1.1-2.2) Lipase (11-82) Units/L Urine Color Yellow (Yellow) Urine Clarity Turbid A (Clear) Urine pH 6.5 (5.0-8.0) pH Units Ur Specific Morrison 1.016 (1.010-1.025) Urine Protein 100 H (Neg-Trace) mg/dL Urine Glucose (UA) Normal (Normal) mg/dL Urine Ketones Negative (Negative) mg/dL Urine Blood Large H (Negative) Urine Nitrite Negative (Negative) Urine Bilirubin Negative (Negative) Urine Urobilinogen Normal (Normal) mg/dL Ur Leukocyte Esterase Large H (Negative) Urine Microscopic RBC 30-50 H (0-3) per hpf Urine Microscopic WBC TNTC H (0-3) per hpf Ur Squamous Epith Cells Many H (None-Few) per lpf Urine Bacteria Many H (None-Few) per hpf Ur Culture Indicated? NO. A (NO) Specimen Rejected
[2018-04-24 08:16] LABS: Bilirubin,Urine Negative (Negative); Blood,Urine Large (Negative); Clarity,Urine Turbid (Clear); Color,Urine Yellow (Yellow); Glucose,Urine (UA) Normal (Normal); Ketones,Urine Negative (Negative); Leukocyte Esterase,Urine Large (Negative); Nitrite,Urine Negative (Negative); PH,Urine 6.5 pH Units (5.0-8.0); Protein,Urine 100 mg/dL (Neg-Trace); Specific Gravity,Urine 1.016 (1.010-1.025); Urobilinogen,Urine Normal (Normal)
[2018-04-24 08:17] LABS: Bacteria,Urine Many per hpf (None-Few); Squamous Epithelial Cell,Urine Many per lpf (None-Few); WBC,Urine TNTC per hpf (0-3)
[2018-04-24 08:34] LABS: RBC,Urine 30-50 per hpf (0-3)
[2018-04-24] MEDS ORDERED: Naloxone 0.4 MG/ML INJ IVP PRN (14:08)
[2018-04-24] MEDS ORDERED: Dextrose Gel 15 GM/37.5 ML TUBE PO PRN ×2 (14:20)
[2018-04-24] MEDS ORDERED: D5% in Water 1,000 ML IVC PRN (14:20)
[2018-04-24] MEDS ORDERED: *HR* Dextrose 50 % in Water (Syg) 50 ML SYRINGE IVP PRN (14:20)
--- NOTE | 2018-04-24 14:47 | Internal Med History&Physical ---
Date of Encounter: 04/24/18 Time of Encounter: 14:32 Internal Medicine - H&P: HPI Chief complaint: chest pain sore throat Admitted From: Home Plans for Post Hospital Care: Home History of present illness: Mr. Leone is a 48 year old male who has history of spinal bifida,b/l lymedema , neurogenic bladder s/p urostomy, CHF, CVA, diabetes, recurrent cellulitis and urinary tract infections presented to emergency department with a chief complaint of chest pain, SOB, diarrhea. Chest pain is located to mid upper chest, on and off for 1 week, 2 out of 10 sharp, when she he coughs. He had the cardiac catheterization on 01/13/2018 shows no obstructive CAD, medical management. Patient also complains of shortness of breath for 1 week, increased leg swelling. He has bilateral lymphedema, recent leg cellultis, no significant infections. Next he patient c/o diarrhea for 7 days he has bowel incontinence due to loose stool, 3-4 times a day Associated with severe nausea vomiting. stool C diff is pending Patient stated that he has been fighting for the sore throat dry cough over last week unable to fall asleep, he is wondering if he has flu. oral exam, he has pharangitis, will check strep. In the emergency room he is afebrile vitals are stable, WBC 13.7 potassium 3.0, UA kshowed UTI, chest x-ray is negative, troponin is mildly elevated chronic since January 2018. CT A/P was negative for acute process. C. difficile was still pending. Patient is going to be admitted for multiple issues #1 chest pain #2 sore throat and dry cough #3 diarrhea with nausea vomiting #4. Hypokalemia, 5, UTI with leukocytosis Past Med Surg Social Fam HX - Past Medical History Medical history: asthma, cancer, CHF, CVA, diabetes, GERD, hyperlipidemia, hypertension, malignancy, migraine, myocardial infarction, thyroid disease, TIA Psychiatric history: depression - Past Surgical History Surgical History: appendectomy, orthopedic, other, vasectomy, other - Social History Smoking Status: Never smoker Smokeless Tobacco Status: No Alcohol use: rarely Drug use: none - Family History Mother Family Member Ethnicity: Non- Living Status: Still Living Hx Family Cardiac Disorders: Yes (HTN) Hx Family Endocrine Disorder: Yes (DM) Hx Family Neurologic Disorders: Yes (Dementia) Sister Family Member Ethnicity: Non- Living Status: Still Living Hx Family Cardiac Disorders: No Hx Family Respiratory Disorders: Yes Hx Family Cancer: No Hx Family GI Disorders: Yes Hx Family Endocrine Disorder: Yes Hx Family Neuromuscular Disorders: Yes Hx Family Neurologic Disorders: Yes Brother Family Member Ethnicity: Non- Living Status: Still Living Hx Family Cardiac Disorders: Yes (HTN) Father Family Member Ethnicity: Non- Living Status: Hx Family Cardiac Disorders: Yes (CHF, HTN) Hx Family Respiratory Disorders: Yes (Asthma, emphysema) Hx Family Cancer: Yes (Lung) Hx Family GI Disorders: No Hx Family Endocrine Disorder: Yes Hx Family Neuromuscular Disorders: No Hx Family Neurologic Disorders: No Hx Family HEENT Disorders: No Hx Family Autoimmune Disorders: No Internal Medicine - H&P: Meds Cholecalciferol (Vitamin D3) [Vitamin D3] 5,000 unit PO DAILY 11/12/16 [History] Levothyroxine [Synthroid] 200 mcg PO DAILY 11/12/16 [History] Loratadine [Claritin] 10 mg PO DAILY 03/08/17 [History] Multivitamin [One Daily Multivitamin] 1 tab PO DAILY 03/08/17 [History] Omeprazole [PriLOSEC] 20 mg PO DAILY 08/25/17 [History] Atorvastatin [Lipitor] 40 mg PO HS 11/14/17 [History] Aspirin 81 mg PO DAILY #30 tab.chew 01/17/18 [Rx] Nystatin POWDER [Nystop] 1 appl TP BID #1 bottle 01/31/18 [Rx] Magnesium Oxide [Mag-Oxide] 400 mg PO BID 03/25/18 [History] Bumetanide [Bumetanide] 2 mg PO DAILY 04/24/18 [History] Metoprolol Succinate [Toprol Xl] 25 mg PO DAILY 04/24/18 [History] 3 Allergy/AdvReac Type Severity Reaction Status Date / Time adhesive Allergy Blister Verified 03/25/18 19:26 Amoxicillin Allergy Hives Verified 03/25/18 19:26 Oxaprozin [From Daypro] AdvReac Diarrhea Verified 03/25/18 19:26 All Systems PM: A 10-system review of systems was performed and is negative for pertinent findings except as documented above in the HPI. - Constitutional Constitutional: weight gain - Constitutional Vitals: Temp Pulse Resp BP Pulse Ox 98.2 F 92 20 130/82 96 04/24/18 11:54 04/24/18 11:54 04/24/18 11:54 04/24/18 11:54 04/24/18 11:54 General appearance: Present: A&O X 3, obese, answers questions appropriately Exam: CONSTITUTIONAL: patient appears as an age appropriate male in no acute distress. EYES Clear sclerae, bilateral pupils are equal, reactive to light. EMOI. RESPIRATORY: No accessory muscle use, bilateral clear to auscultation, no wheezing, no crackles/rales. CARDIOVASCULAR: Regular heart rate, normal S1 and S2, no murmurs GASTROINTESTINAL: bowel sounds present, soft, no tenderness. MUSCULOSKELETAL: Joints in normal range of motion, no clubbing, no edema, no cyanosis. Bilateral peripheral pulses 2+. NEUROLOGIC: CN II to XII are grossly intact, no focal neurological deficit. Internal Med - H&P Results - Labs CBC & Chem 7: 04/24/18 06:08 04/24/18 06:08 - Assessment and plan (1) Sore throat Current Visit: Yes Status: Acute Assessment and plan: Patient complaining of sore throat and dry cough for 1 week, denies fever, he also compress off choking with food, we will consult speech therapy for swallow eval, check strep throat (2) Nausea and vomiting Current Visit: Yes Status: Acute Assessment and plan: Patient has a week NAUSEA vomiting diarrhea, C. difficile was still pending CT abdomen is negative for acute process Supportive care Qualifiers: Vomiting type: unspecified Vomiting Intractability: unspecified Qualified Code(s): R11.2 - Nausea with vomiting, unspecified (3) UTI (urinary tract infection) Current Visit: Yes Status: Acute Assessment and plan: Patient has history of urostomy, the ileostomy bag is leaking, we will consult wound care. Urine looks cloudy he has a history of resistant bacteria infection with pseudomonas MRSA. We will give her ertapenem and the doxycycline Qualifiers: Urinary tract infection type: acute cystitis Hematuria presence: without hematuria Qualified Code(s): N30.00 - Acute cystitis without hematuria (4) Hyperlipidemia Current Visit: Yes Status: Chronic Qualifiers: Hyperlipidemia type: pure hypercholesterolemia Qualified Code(s): E78.00 - Pure hypercholesterolemia, unspecified; E78.0 - Pure hypercholesterolemia (5) Hypothyroidism Current Visit: No Status: Chronic Qualifiers: Hypothyroidism type: unspecified Qualified Code(s): E03.9 - Hypothyroidism , unspecified (6) UTI (urinary tract infection) Current Visit: No Status: Acute Qualifiers: Urinary tract infection type: site unspecified Hematuria presence: with hematuria Qualified Code(s): N39.0 - Urinary tract infection, site not specified; R31.9 - Hematuria, unspecified (7) Leukocytosis Current Visit: Yes Status: Acute Assessment and plan: WBC was 13.7 likely from UTI covered by ertapenem and the doxycycline Qualifiers: Leukocytosis type: unspecified Qualified Code(s): D72.829 - Elevated white blood cell count, unspecified (8) Elevated troponin Current Visit: Yes Status: Acute Assessment and plan: Patient has atypical chest pain, he had to cardiac catheterization01/13/2018 showed nonobstructive CAD, medcial management, he has trop elevation nsince then will trending trop (9) GERD (gastroesophageal reflux disease) Current Visit: Yes Status: Chronic Qualifiers: Esophagitis presence: esophagitis presence not specified Qualified Code(s) : K21.9 - Gastro-esophageal reflux disease without esophagitis (10) Acute diastolic heart failure Current Visit: Yes Status: Acute Assessment and plan: SOB angela weber from acute diastolic chf exacerabtion, continue bumetanide, replace kcl (11) Spina bifida Current Visit: Yes Status: Chronic Qualifiers: Spinal region: lumbosacral Presence of hydrocephalus: unspecified hydrocephalus presence Qualified Code(s): Q05.7 - Lumbar spina bifida without hydrocephalus (12) Essential hypertension Current Visit: Yes Status: Chronic - Time Spent With Patient Total time spent is greater than 50% in coordination of care (as documented) at patient's floor/unit and/or counseling patient: Greater than 35 minutes
[2018-04-24 16:38] LABS: Estimated Average Glucose 146 mg/dl; Hemoglobin A1C 6.7 %
[2018-04-24] MEDS ORDERED: *HR* Heparin 5,000 UNIT/ML VIAL IVP PRN ×2 (16:50)
[2018-04-24] MEDS ORDERED: *HR* Heparin 5,000 UNIT/ML VIAL IVP ONE (16:50)
[2018-04-24] MEDS: Ertapenem 1,000 MG in 0.9 % Sodium Chloride Mini Bag 100 ML IVPB SCH (17:06)
[2018-04-24] MEDS: Insulin LISPRO 300 UNITS/3 ML VIAL SQ SCH ×2 (17:14→20:41)
[2018-04-24] MEDS: Heparin 25,000 UNIT/500 ML D5W 25,000 UNIT/500 ML BAG IVC SCH (18:19)
[2018-04-24] MEDS: Nitroglycerin 1 INCH/GM PACKET TP SCH (20:41)
[2018-04-24] MEDS: Magnesium Oxide 400 MG TABLET PO SCH (20:41)
[2018-04-24] MEDS: Doxycycline 100 MG CAPSULE PO SCH (20:41)
[2018-04-24] MEDS: Nystatin POWDER 30 GM BOTTLE TP SCH (20:41)
[2018-04-24 22:23] LABS: Hematocrit 32.4 % (37.5-50.1); Mean Corpuscular HGB Conc 32.1 g/dL (31.6-35.5); Mean Corpuscular Hemoglobin 26.3 pg (28.0-33.3); Mean Corpuscular Volume 81.8 fL (83.0-100.0); Mean Platelet Volume 10.5 fL (9.4-12.4); Platelet Count 363 K/mcL (140-400); Red Blood Count 3.96 M/mcL (4.19-5.50); Red Cell Distribution Width 15.5 % (11.5-14.5)
[2018-04-24 22:24] LABS: Hemoglobin 10.4 g/dL (12.9-16.9)
[2018-04-24 22:29] LABS: INR 1.3; Prothrombin Time 13.9 Seconds (9.4-12.1)
[2018-04-24 22:31] LABS: Activated Partial Thrombo Time 54.6 Seconds (26.0-36.0)
[2018-04-25 02:53] LABS: Hematocrit 30.3 % (37.5-50.1); Hemoglobin 9.8 g/dL (12.9-16.9); Mean Corpuscular HGB Conc 32.3 g/dL (31.6-35.5); Mean Corpuscular Hemoglobin 26.3 pg (28.0-33.3); Mean Corpuscular Volume 81.5 fL (83.0-100.0); Mean Platelet Volume 10.1 fL (9.4-12.4); Platelet Count 316 K/mcL (140-400); Red Blood Count 3.72 M/mcL (4.19-5.50); Red Cell Distribution Width 15.5 % (11.5-14.5)
[2018-04-25 03:13] LABS: BUN/Creatinine Ratio 14 (6-26); Blood Urea Nitrogen 12 mg/dL (6-20); Carbon Dioxide 26 mEq/L (23-29); Chloride 100 mEq/L (98-107); Chol/HDL Ratio 4.4 (0-4.9); Cholesterol 131 mg/dL (< 200); Glucose 148 mg/dL (70-105); HDL Cholesterol 30 mg/dL (40-59); LDL Cholesterol,Calculated 77 mg/dL (0-99); Magnesium 1.4 mg/dL (1.6-2.6); Osmolality,Calculated 287 (280-300); Phosphorous 3.2 mg/dL (2.7-4.5); Sodium 137 mEq/L (136-145); Triglycerides 121 mg/dL (< 150); eGFR For African Americans > 60 (> 60); eGFR For Non-African Americans > 60 (> 60)
[2018-04-25] MEDS: Nitroglycerin 1 INCH/GM PACKET TP SCH ×2 (05:28→12:32)
[2018-04-25] MEDS: Doxycycline 100 MG CAPSULE PO SCH ×2 (05:28→17:07)
--- NOTE | 2018-04-25 07:00 | Electrocardiograph Report ---
[facility] Test Date: 2018-04-24 Pat Name: Sammy Leone Department: 103 Room: 2SH26 Gender: M Electronic Specialist: GABRIELA : 1970 Requested By: Zhen Hayden Order Number: [id number] Reading MD: Yong Clayton Measurements Intervals [place] Rate: 100 P: 19 PA: 127 QRS: 51 QRSD: 102 T: 26 QT: 363 QTc: 420 Interpretive Statements SINUS TACHYCARDIA POSSIBLE INFERIOR MYOCARDIAL INFARCTION [30 ms Q WAVE IN II/aVF], PROBABLY OLD ABNORMAL RHYTHM ECG Electronically Signed On 04-25-2018 6:59:09 EDT by Yong Clayton
[2018-04-25] MEDS: Metoprolol XL (24 HR) Succ 25 MG TAB.ER.24H PO SCH (10:33)
[2018-04-25] MEDS: Bumetanide 1 MG TABLET PO SCH (10:33)
[2018-04-25] MEDS: Loratadine 10 MG TABLET PO SCH (10:34)
[2018-04-25] MEDS: Magnesium Oxide 400 MG TABLET PO SCH ×2 (10:34→20:33)
[2018-04-25] MEDS: Aspirin 81 MG TAB.CHEW PO SCH (10:34)
[2018-04-25] MEDS: Multivit/Ca/Min/Fe/FA 1 TAB TABLET PO SCH (10:34)
[2018-04-25] MEDS: Cholecalciferol (D-3) 1,000 UNIT TABLET PO SCH (10:34)
[2018-04-25] MEDS: Insulin LISPRO 300 UNITS/3 ML VIAL SQ SCH ×4 (10:35→21:49)
[2018-04-25] MEDS: Ertapenem 1,000 MG in 0.9 % Sodium Chloride Mini Bag 100 ML IVPB SCH (10:36)
[2018-04-25] MEDS: Nystatin POWDER 30 GM BOTTLE TP SCH ×2 (10:36→20:33)
[2018-04-25] MEDS ORDERED: Potassium Phosphate 44 MEQ in 0.9 % Sodium Chloride 250 ML IVPB ONE (11:38)
--- NOTE | 2018-04-25 11:55 | Internal Med Progress Note ---
Date of Encounter: 04/25/18 Time of Encounter: 11:50 - Assessment and plan (1) Chest pain Current Visit: Yes Status: Acute Assessment and plan: seen by cardiology. Angiogram reviewed, mild CAD. Recheeck TTE. No indication for invasive evaluation. Continue aspirin and plavix. D/C heparin after troponin peaks Qualifiers: Chest pain type: unspecified Qualified Code(s): R07.9 - Chest pain, unspecified (2) Elevated troponin Current Visit: Yes Status: Acute Assessment and plan: See #1 (3) Leukocytosis Current Visit: Yes Status: Acute Assessment and plan: Continue ertapenem Qualifiers: Leukocytosis type: unspecified Qualified Code(s): D72.829 - Elevated white blood cell count, unspecified (4) DVT prophylaxis Current Visit: No Status: Acute Assessment and plan: On heparin drip (5) UTI (urinary tract infection) Current Visit: No Status: Acute Assessment and plan: Pt has foul smelling urine with ileostomy bag. Contnue broad spectrum abx, f/u urine cultures Qualifiers: Urinary tract infection type: site unspecified Hematuria presence: with hematuria Qualified Code(s): N39.0 - Urinary tract infection, site not specified; R31.9 - Hematuria, unspecified - Time Spent With Patient Total time spent is greater than 50% in coordination of care (as documented) at patient's floor/unit and/or counseling patient: - Subjective Interval history: No acute events overnight - Constitutional Vitals: Temp Pulse Resp BP Pulse Ox 98.1 F 94 18 135/73 96 04/25/18 11:42 04/25/18 11:42 04/25/18 11:42 04/25/18 11:42 04/25/18 11:42 General appearance: Present: A&O X 3, obese, answers questions appropriately - Head Head exam: Present: atraumatic, normocephalic - Eye Eye exam: Present: PERRL, conjuntiva pink, sclera anicteric Pupils: Present: PERRL - Neck Neck exam general surgery: Present: supple, trachea midline. Absent: lymphadenopathy - Respiratory Respiratory exam: Present: CTAB. Absent: accessory muscle use, rales, rhonchi, wheezes - Cardiovascular Cardiovascular exam: Present: RRR, +S1, +S2. Absent: diastolic murmur, gallop, rubs, systolic murmur - GI/Abdominal GI/Abdominal exam: Present: normal bowel sounds, soft, no peritoneal signs. Absent: distended, tenderness - Extremities Exam Extremities exam: Present: warm, radial pulses palpable and symmetrical. Absent : calf tenderness, cyanotic, pedal edema - Neurological Exam Neurological exam: Present: CN II-XII intact, oriented X3, no focal deficits. Absent: pronater drift, facial droop, speech deficit - Skin Skin exam: Present: dry, intact Internal Medicine: Result - Labs CBC & Chem 7: 04/25/18 02:45 04/25/18 02:45 Labs: Short CBC 04/24/18 04/25/18 Range/Units 22:08 02:45 WBC 11.4 H 10.6 (4.3-11.1) K/mcL Hgb 10.4 L D 9.8 L (12.9-16.9) g/dL Hct 32.4 L 30.3 L (37.5-50.1) % Plt Count 363 316 (140-400) K/mcL BMP 04/25/18 02:45 Sodium 137 Potassium 3.0 L Chloride 100 Carbon Dioxide 26 BUN 12 Creatinine 0.86 Glucose 148 H Calcium 9.0 Cardiac Enzymes 04/24/18 04/24/18 04/25/18 Range/Units 15:47 22:08 02:45 Troponin I 1.49 H* 1.34 H* 1.47 H* (< 0.04) ng/mL - ABG Interpretation ABG results: PT/INR, D-dimer PT 13.9 Seconds (9.4-12.1) H 04/24/18 22:08 Consult Discharge Plan - Plan Referrals: Maria Elena An MD [Primary Care Provider] -
[2018-04-25] MEDS: Benzonatate 100 MG CAPSULE PO PRN (12:54)
--- NOTE | 2018-04-25 15:52 | Cardiology Consult Note ---
Date of Encounter: 04/25/18 Time of Encounter: 15:30 Assessment and Plan (1) Elevated troponin I level Current Visit: Yes Status: Acute Reviewed angiogram, mild CAD. Troponin likely demand ischemia from infectious process, will recheck limited TTE for EF assessment. No indication for invasive evaluation. DC heparin after troponin peaks. Continue aspirin/ plavix. Maintain K > 4 if possible. (2) Essential hypertension Current Visit: Yes Status: Chronic continue home medications, titrate as necessary (3) Diabetes Current Visit: No Status: Chronic SSI as needed Qualifiers: Diabetes mellitus type: type 2 Diabetes mellitus intermodal dispatcher insulin use: without intermediate use Diabetes mellitus complication status: with skin complications Diabetes mellitus complication detail: with other skin ulcer Qualified Code(s): E11.622 - Type 2 diabetes mellitus with other skin ulcer (4) Sepsis Current Visit: No Status: Resolved per primary team Qualifiers: Sepsis type: sepsis due to unspecified organism Qualified Code(s): A41.9 - Sepsis, unspecified organism Discussion w patient/family: The assessment and plan as outlined above was discussed with the patient and/or family members who expressed understanding and agreement. All questions were answered. Thank you for involving us in the care of your patient. Please call with any questions. History of Present Illness Consult date: 04/25/18 Consult reason: chest pain History of present illness: Mr. Leone is a 48 year old male w spina bifida (sedentary) and history of NSTEMI 01/2018 with LHC showing mild CAD and nml EF by TTE presents with severe episode of coughing followed by brief episode of sharp chest discomfort that has since resolved and not recurred. He has mild dyspnea above baseline and chronic LE edema with history of recurrent UTI and chronic diarrhea. Overall unhealthy baseline. Past Med Surg Social Fam HX - Past Medical History Medical history: asthma, cancer, CHF, CVA, diabetes, GERD, hyperlipidemia, hypertension, malignancy, migraine, myocardial infarction, thyroid disease, TIA Psychiatric history: depression - Past Surgical History Surgical History: appendectomy, orthopedic, other, vasectomy, other - Social History Smoking Status: Never smoker Smokeless Tobacco Status: No Alcohol use: rarely Drug use: none - Family History Mother Family Member Ethnicity: Non- Living Status: Still Living Hx Family Cardiac Disorders: Yes (HTN) Hx Family Endocrine Disorder: Yes (DM) Hx Family Neurologic Disorders: Yes (Dementia) Sister Family Member Ethnicity: Non- Living Status: Still Living Hx Family Cardiac Disorders: No Hx Family Respiratory Disorders: Yes Hx Family Cancer: No Hx Family GI Disorders: Yes Hx Family Endocrine Disorder: Yes Hx Family Neuromuscular Disorders: Yes Hx Family Neurologic Disorders: Yes Brother Family Member Ethnicity: Non- Living Status: Still Living Hx Family Cardiac Disorders: Yes (HTN) Father Family Member Ethnicity: Non- Living Status: Hx Family Cardiac Disorders: Yes (CHF, HTN) Hx Family Respiratory Disorders: Yes (Asthma, emphysema) Hx Family Cancer: Yes (Lung) Hx Family GI Disorders: No Hx Family Endocrine Disorder: Yes Hx Family Neuromuscular Disorders: No Hx Family Neurologic Disorders: No Hx Family HEENT Disorders: No Hx Family Autoimmune Disorders: No Medications and Allergies Cholecalciferol (Vitamin D3) [Vitamin D3] 5,000 unit PO DAILY 11/12/16 [History] Levothyroxine [Synthroid] 200 mcg PO DAILY 11/12/16 [History] Loratadine [Claritin] 10 mg PO DAILY 03/08/17 [History] Multivitamin [One Daily Multivitamin] 1 tab PO DAILY 03/08/17 [History] Omeprazole [PriLOSEC] 20 mg PO DAILY 08/25/17 [History] Atorvastatin [Lipitor] 40 mg PO HS 11/14/17 [History] Aspirin 81 mg PO DAILY #30 tab.chew 01/17/18 [Rx] Nystatin POWDER [Nystop] 1 appl TP BID #1 bottle 01/31/18 [Rx] Magnesium Oxide [Mag-Oxide] 400 mg PO BID 03/25/18 [History] Bumetanide [Bumetanide] 2 mg PO DAILY 04/24/18 [History] Metoprolol Succinate [Toprol Xl] 25 mg PO DAILY 04/24/18 [History] 3 Allergy/AdvReac Type Severity Reaction Status Date / Time adhesive Allergy Blister Verified 03/25/18 19:26 Amoxicillin Allergy Hives Verified 03/25/18 19:26 Oxaprozin [From Daypro] AdvReac Diarrhea Verified 03/25/18 19:26 All Systems Review: The remainder of the systems were reviewed and are negative - Constitutional Constitutional: no anorexia, no chills - EENT Eyes: no blurred vision, no loss of vision Nose, mouth and throat: no bleeding gums, no mouth pain - Cardiovascular Cardiovascular: no rapid heart rate, no slow heart rate - Respiratory Respiratory: no hemoptysis, no wheezing - Gastrointestinal Gastrointestinal: no hematemesis, no hematochezia - Musculoskeletal Musculoskeletal: no back pain, no myalgias - Integumentary Integumentary: no erythema, no unusual bruising - Neurological Neurological: no focal weakness, no syncope - Psychiatric Psychiatric: no hallucinations, no panic attacks - Hematological/Lymphatic Hematologic/Lymphatic: no easy bleeding, no easy bruising Physical Examination General: Conversant HEENT: Atraumatic Neck: No JVD Cardiac: Reg Rate and Rhythm Lungs: Normal Breath Sounds, Other Neuro: Alert and responsive Abdomen: Soft Skin: No rashes noted on visualized skin Extremities: Other (trace edema) Results 04/25/18 02:45 04/25/18 02:45 Lab Results 04/24/18 04/24/18 04/24/18 15:47 22:08 22:08 WBC 11.4 H Hgb 10.4 L D Hct 32.4 L Plt Count 363 INR APTT Sodium Potassium Chloride Carbon Dioxide BUN Creatinine Glucose Calcium Magnesium Troponin I 1.49 H* 1.34 H* 04/24/18 04/25/18 04/25/18 22:08 00:55 02:45 WBC Hgb Hct Plt Count INR 1.3 APTT 54.6 H 63.8 H Sodium Potassium Chloride Carbon Dioxide BUN Creatinine Glucose Calcium Magnesium Troponin I 1.47 H* 04/25/18 04/25/18 04/25/18 02:45 02:45 10:28 WBC 10.6 Hgb 9.8 L Hct 30.3 L Plt Count 316 INR APTT 40.6 H Sodium 137 Potassium 3.0 L Chloride 100 Carbon Dioxide 26 BUN 12 Creatinine 0.86 Glucose 148 H Calcium 9.0 Magnesium 1.4 L Troponin I - EKG Interpretation EKG results cardiology: personally reviewed, sinus rhythm, no diagnostic ischemia Consult Discharge Plan - Plan Referrals: Maria Elena An MD [Primary Care Provider] -
[2018-04-25] MEDS: Heparin 25,000 UNIT/500 ML D5W 25,000 UNIT/500 ML BAG IVC SCH (17:08)
[2018-04-26 03:42] LABS: Basophils # 0.1 K/mcL (0.0-0.2); Basophils % 0.6 %; Eosinophils # 0.6 K/mcL (0.0-0.6); Eosinophils % 6.9 %; Hemoglobin 8.9 g/dL (12.9-16.9); Immature Granulocytes % 0.2 % (0-4); Mean Corpuscular HGB Conc 30.7 g/dL (31.6-35.5); Mean Corpuscular Hemoglobin 24.9 pg (28.0-33.3); Mean Platelet Volume 10.4 fL (9.4-12.4); Monocytes # 0.7 K/mcL (0.0-1.3); Monocytes % 8.2 %; Neutrophils # 4.8 K/mcL (1.6-8.9); Platelet Count 291 K/mcL (140-400); Red Blood Count 3.58 M/mcL (4.19-5.50); Red Cell Distribution Width 15.5 % (11.5-14.5); Segmented Neutrophils % 59.1 %
[2018-04-26 04:00] LABS: BUN/Creatinine Ratio 14 (6-26); Blood Urea Nitrogen 11 mg/dL (6-20); Calcium 8.5 mg/dL (8.6-10.3); Carbon Dioxide 26 mEq/L (23-29); Chloride 101 mEq/L (98-107); Glucose 138 mg/dL (70-105); Osmolality,Calculated 284 (280-300); Potassium 3.3 mEq/L (3.5-5.1); Sodium 136 mEq/L (136-145); eGFR For African Americans > 60 (> 60); eGFR For Non-African Americans > 60 (> 60)
[2018-04-26] MEDS: Benzonatate 100 MG CAPSULE PO PRN (06:26)
[2018-04-26] MEDS: Nitroglycerin 1 INCH/GM PACKET TP SCH ×2 (06:26→12:37)
[2018-04-26] MEDS: Doxycycline 100 MG CAPSULE PO SCH ×2 (06:26→17:11)
[2018-04-26 08:03] LABS: Magnesium 1.5 mg/dL (1.6-2.6)
--- NOTE | 2018-04-26 08:03 | Internal Med Progress Note ---
Date of Encounter: 04/26/18 Time of Encounter: 08:00 - Assessment and plan (1) UTI (urinary tract infection) Current Visit: No Status: Acute Assessment and plan: Pt has foul smelling urine with ileostomy bag. Contnue broad spectrum abx. Urine cultures positive for proteus and gram negative rods. Awaiting sensitivities. Continue ertapenem Qualifiers: Urinary tract infection type: site unspecified Hematuria presence: without hematuria Qualified Code(s): N39.0 - Urinary tract infection, site not specified (2) Chest pain Current Visit: Yes Status: Acute Assessment and plan: seen by cardiology. Angiogram reviewed, mild CAD. Recheeck TTE. No indication for invasive evaluation. Continue aspirin and plavix. D/C heparin after troponin peaks. Troponin peaked at 1.49. Heparin d/german today Qualifiers: Chest pain type: unspecified Qualified Code(s): R07.9 - Chest pain, unspecified (3) Elevated troponin Current Visit: Yes Status: Acute Assessment and plan: See #1. Follow cardiology recs (4) Leukocytosis Current Visit: Yes Status: Acute Assessment and plan: Likely 2/2 to UTI. Continue ertapenem Qualifiers: Leukocytosis type: unspecified Qualified Code(s): D72.829 - Elevated white blood cell count, unspecified (5) DVT prophylaxis Current Visit: No Status: Acute Assessment and plan: On heparin drip (6) Hypokalemia Current Visit: Yes Status: Acute Assessment and plan: Replaced. Repeat potassium (7) Hypomagnesemia Current Visit: Yes Status: Acute Assessment and plan: Replaced (8) Hypophosphatemia Current Visit: Yes Status: Acute Assessment and plan: Replaced - Time Spent With Patient Total time spent is greater than 50% in coordination of care (as documented) at patient's floor/unit and/or counseling patient: - Subjective Interval history: No acute events overnight - Constitutional Vitals: Temp Pulse Resp BP Pulse Ox 97.9 F 84 18 101/66 98 04/26/18 03:39 04/26/18 03:39 04/26/18 03:39 04/26/18 03:39 04/26/18 03:39 General appearance: Present: A&O X 3, obese, answers questions appropriately - Head Head exam: Present: atraumatic, normocephalic - Eye Eye exam: Present: PERRL, conjuntiva pink, sclera anicteric Pupils: Present: PERRL - Neck Neck exam general surgery: Present: supple, trachea midline. Absent: lymphadenopathy - Respiratory Respiratory exam: Present: CTAB. Absent: accessory muscle use, rales, rhonchi, wheezes - Cardiovascular Cardiovascular exam: Present: RRR, +S1, +S2. Absent: diastolic murmur, gallop, rubs, systolic murmur - GI/Abdominal GI/Abdominal exam: Present: normal bowel sounds, soft, no peritoneal signs. Absent: distended, tenderness - Additional comments: ileostomy bag in place - Extremities Exam Extremities exam: Present: warm, radial pulses palpable and symmetrical. Absent : calf tenderness, cyanotic, pedal edema - Neurological Exam Neurological exam: Present: CN II-XII intact, oriented X3, no focal deficits. Absent: pronater drift, facial droop, speech deficit - Skin Skin exam: Present: dry, intact Internal Medicine: Result - Labs CBC & Chem 7: 04/26/18 03:25 04/26/18 03:25 Labs: Short CBC 04/26/18 Range/Units 03:25 WBC 8.1 (4.3-11.1) K/mcL Hgb 8.9 L (12.9-16.9) g/dL Hct 29.0 L (37.5-50.1) % Plt Count 291 (140-400) K/mcL Neutrophils # 4.8 (1.6-8.9) K/mcL BMP 04/26/18 03:25 Sodium 136 Potassium 3.3 L Chloride 101 Carbon Dioxide 26 BUN 11 Creatinine 0.78 Glucose 138 H Calcium 8.5 L - ABG Interpretation ABG results: PT/INR, D-dimer PT 13.9 Seconds (9.4-12.1) H 04/24/18 22:08 Consult Discharge Plan - Plan Referrals: Maria Elena An MD [Primary Care Provider] -
[2018-04-26 08:09] LABS: Phosphorous 3.2 mg/dL (2.7-4.5)
[2018-04-26] MEDS: Cholecalciferol (D-3) 1,000 UNIT TABLET PO SCH (09:10)
[2018-04-26] MEDS: Multivit/Ca/Min/Fe/FA 1 TAB TABLET PO SCH (09:10)
[2018-04-26] MEDS: Bumetanide 1 MG TABLET PO SCH (09:10)
[2018-04-26] MEDS: Ertapenem 1,000 MG in 0.9 % Sodium Chloride Mini Bag 100 ML IVPB SCH (09:10)
[2018-04-26] MEDS: Magnesium Oxide 400 MG TABLET PO SCH ×2 (09:10→21:37)
[2018-04-26] MEDS: Aspirin 81 MG TAB.CHEW PO SCH (09:10)
[2018-04-26] MEDS: Loratadine 10 MG TABLET PO SCH (09:10)
[2018-04-26] MEDS: Metoprolol XL (24 HR) Succ 25 MG TAB.ER.24H PO SCH (09:10)
[2018-04-26] MEDS: Insulin LISPRO 300 UNITS/3 ML VIAL SQ SCH ×4 (09:12→20:38)
[2018-04-26] MEDS: Nystatin POWDER 30 GM BOTTLE TP SCH ×2 (09:21→20:39)
--- NOTE | 2018-04-26 09:33 | Event Note ---
Date of Encounter: 04/26/18 Time of Encounter: 09:31 - Cardiology Event Note Echocardiogram pending. Further recommendations to follow results. Noted to have acute drop in Hgb. Hospitalist following.
--- NOTE | 2018-04-26 14:52 | Cardiology Progress Note ---
Date of Encounter: 04/26/18 Time of Encounter: 14:50 Assessment and Plan (1) Chest pain Current Visit: Yes Status: Acute Atypical chest pain. Appears to be GI related with coughing and vomiting. Reports history of hiatal hernia. Consider GI evaluation. Qualifiers: Chest pain type: unspecified Qualified Code(s): R07.9 - Chest pain, unspecified (2) Elevated troponin I level Current Visit: Yes Status: Acute Reviewed recent angiogram from 01/13/18, mild CAD. Troponin elevation likely demand ischemia from infectious process. Chronic elevation since January. TTE shows preserved EF. LVEF 60-65%. Normal right ventricular function. No indication for invasive evaluation. Okay to d/c heparin gtt. Continue aspirin/plavix. Discussion w patient/family: The assessment and plan as outlined above was discussed with the patient and/or family members who expressed understanding and agreement. All questions were answered. Thank you for involving us in the care of your patient. Please call with any questions. Subjective Principal diagnosis: elevated troponin Interval history: C/o chest discomfort with cough and vomiting. Objective Vital Signs Temp Pulse Resp BP Pulse Ox 04/26/18 10:34 97.8 F 88 17 133/75 94 04/26/18 08:33 97.9 F 91 17 100/64 94 04/26/18 03:39 97.9 F 84 18 101/66 98 04/25/18 18:56 98.4 F 95 18 104/68 96 04/25/18 16:29 98.4 F 96 18 96/60 96 Intake and Output 04/25/18 04/26/18 04/26/18 23:59 07:59 15:59 Intake Total 314 / 314 210 / 210 530 / 530 Output Total 700 / 700 975 / 975 Balance -386 / -386 210 / 210 -445 / -445 Intake: IV Fluids 199 / 199 210 / 210 50 / 50 Heparin 25,000 UNIT/500 ML D5W 199 / 199 210 / 210 50 / 50 25,000 unit In 500 ml @ 10.02 UNIT/KG/HR 19.998 mls/hr IVC . Q24H ARTURO Rx#:[id number] Oral 115 / 115 0 / 0 480 / 480 Output: Urostomy 700 / 700 Right Nephrostomy 975 / 975 Other: Meal Breakfast Percent of Meal Consumed 100% Weight 133.9 kg Blood Glucose* 197 105 Patient Weight 04/26/18 23:59 Weight 133.9 kg General: Conversant, No Apparent Distress HEENT: Atraumatic, Normocephaly, Mucus Membranes Moist, Other (multiple cavities ) Neck: No JVD, Normal carotid pulses Cardiac: Reg Rate and Rhythm, Normal S1 and S2, No Murmur Lungs: Normal Breath Sounds, No Wheeze, Rales, Rhonchi Neuro: Alert and responsive, No focal deficits noted Abdomen: Soft, Other (tender to palpation) Skin: No rashes noted on visualized skin Musculoskeletal: No Chest Wall Tenderness Extremities: No Clubbing, No Cyanosis, No Edema, Normal Pulses Results 04/26/18 03:25 04/26/18 03:25 Lab Results 04/25/18 04/26/18 04/26/18 19:47 03:25 03:25 WBC 8.1 Hgb 8.9 L Hct 29.0 L Plt Count 291 APTT 66.1 H D Sodium 136 Potassium 3.3 L Chloride 101 Carbon Dioxide 26 BUN 11 Creatinine 0.78 Glucose 138 H Calcium 8.5 L Magnesium 1.5 L B-Natriuretic Peptide 04/26/18 04/26/18 03:25 03:25 WBC Hgb Hct Plt Count APTT 86.5 H Sodium Potassium Chloride Carbon Dioxide BUN Creatinine Glucose Calcium Magnesium B-Natriuretic Peptide 12 - Imaging and Cardiology Echo: report reviewed - EKG Interpretation EKG results cardiology: personally reviewed Consult Discharge Plan - Plan Referrals: Maria Elena An MD [Primary Care Provider] -
[2018-04-26] MEDS: *HR* Heparin 5,000 UNIT/ML VIAL SQ SCH (17:11)
[2018-04-27] MEDS: *HR* Heparin 5,000 UNIT/ML VIAL SQ SCH (04:38)
[2018-04-27] MEDS: Doxycycline 100 MG CAPSULE PO SCH (04:38)
[2018-04-27] MEDS: Nitroglycerin 1 INCH/GM PACKET TP SCH (04:56)
[2018-04-27 06:00] LABS: Basophils # 0.1 K/mcL (0.0-0.2); Basophils % 0.6 %; Eosinophils # 0.5 K/mcL (0.0-0.6); Eosinophils % 6.4 %; Hematocrit 30.8 % (37.5-50.1); Hemoglobin 9.7 g/dL (12.9-16.9); Immature Granulocytes % 0.2 % (0-4); Lymphocytes # 1.7 K/mcL (0.6-4.6); Lymphocytes % 20.7 %; Mean Corpuscular HGB Conc 31.5 g/dL (31.6-35.5); Mean Corpuscular Volume 82.6 fL (83.0-100.0); Monocytes # 0.6 K/mcL (0.0-1.3); Monocytes % 6.9 %; Neutrophils # 5.3 K/mcL (1.6-8.9); Platelet Count 321 K/mcL (140-400); Red Blood Count 3.73 M/mcL (4.19-5.50); Red Cell Distribution Width 15.4 % (11.5-14.5); Segmented Neutrophils % 65.2 %
[2018-04-27 06:20] LABS: BUN/Creatinine Ratio 16 (6-26); Blood Urea Nitrogen 15 mg/dL (6-20); Calcium 9.4 mg/dL (8.6-10.3); Carbon Dioxide 30 mEq/L (23-29); Chloride 102 mEq/L (98-107); Glucose 142 mg/dL (70-105); Osmolality,Calculated 289 (280-300); Potassium 3.9 mEq/L (3.5-5.1); Sodium 138 mEq/L (136-145); eGFR For African Americans > 60 (> 60); eGFR For Non-African Americans > 60 (> 60)
--- NOTE | 2018-04-27 07:56 | Discharge Summary ---
Orders not resulted at time of discharge: Pending orders 04/24/18 15:46 Culture,Blood [BC] Stat 04/25/18 11:50 Culture,Urine [RM] Routine 04/28/18 04:00 Basic Metabolic Panel AM 0400 CBC [Complete Blood Count] [HEME] AM 0400 04/29/18 04:00 Basic Metabolic Panel AM 0400 CBC [Complete Blood Count] [HEME] AM 0400 04/30/18 04:00 Basic Metabolic Panel AM 0400 CBC [Complete Blood Count] [HEME] AM 0400 05/01/18 04:00 Basic Metabolic Panel AM 0400 CBC [Complete Blood Count] [HEME] AM 0400 Date of Encounter: 04/27/18 Time of Encounter: 08:00 - Discharge Diagnosis (1) UTI (urinary tract infection) Priority: Primary Status: Acute Assessment and Plan: 48 year old male who has history of spinal bifida,b/l lymedema , neurogenic bladder s/p urostomy, CHF, CVA, diabetes, recurrent cellulitis and urinary tract infections presented to emergency department with a chief complaint of chest pain, SOB, diarrhea. He was managed for chest pain r/o AR 2/2 to elevated troponins. He was started on a heparin drip and cardiology was consulted. Cardiology determined there was no need for any acute intervention as he had a recent cardiac cath and an echo came back WNL. His diarrhea resolved. He was also treated for a complicated UTI as he had foul smelling urine with ileostomy bag with nausea and vomiting. He was started on ertapenem. Urine cx came back positive for proteus and enterobacter. He was discharged to complete a course of bactrim Qualifiers: Urinary tract infection type: site unspecified Hematuria presence: without hematuria Qualified Code(s): N39.0 - Urinary tract infection, site not specified (2) Chest pain Priority: Secondary Status: Acute Assessment and Plan: seen by cardiology. Angiogram reviewed, mild CAD. [place] TTE. No indication for invasive evaluation. Continue aspirin and plavix. D/C heparin after troponin peaks. Troponin peaked at 1.49. Heparin d/german today Qualifiers: Chest pain type: unspecified Qualified Code(s): R07.9 - Chest pain, unspecified (3) Elevated troponin Priority: Secondary Status: Acute Assessment and Plan: See #1. Follow cardiology recs (4) Leukocytosis Priority: Secondary Status: Acute Qualifiers: Leukocytosis type: unspecified Qualified Code(s): D72.829 - Elevated white blood cell count, unspecified (5) DVT prophylaxis Priority: Secondary Status: Acute (6) Hypokalemia Priority: Secondary Status: Acute (7) Hypomagnesemia Priority: Secondary Status: Acute (8) Hypophosphatemia Priority: Secondary Status: Acute Hospital course: Mr. Leone is a 48 year old male - Time Spent with Patient Total time spent providing and/or coordinating discharge services: - Discharge Medications Prescriptions: GuaiFENesin Liq [Robitussin Liq] 200 mg PO Q6HR #30 mls Benzonatate [Tessalon] 200 mg PO TID PRN #20 capsule PRN Reason: Cough Clopidogrel [Plavix] 75 mg PO DAILY #30 tablet Sulfamethoxazole/Trimeth DS [Bactrim Ds] 1 each PO BID #10 tablet Home Medications: Cholecalciferol (Vitamin D3) [Vitamin D3] 5,000 unit PO DAILY 11/12/16 [History] Levothyroxine [Synthroid] 200 mcg PO DAILY 11/12/16 [History] Loratadine [Claritin] 10 mg PO DAILY 03/08/17 [History] Multivitamin [One Daily Multivitamin] 1 tab PO DAILY 03/08/17 [History] Omeprazole [PriLOSEC] 20 mg PO DAILY 08/25/17 [History] Atorvastatin [Lipitor] 40 mg PO HS 11/14/17 [History] Aspirin 81 mg PO DAILY #30 tab.chew 01/17/18 [Rx] Nystatin POWDER [Nystop] 1 appl TP BID #1 bottle 01/31/18 [Rx] Magnesium Oxide [Mag-Oxide] 400 mg PO BID 03/25/18 [History] Bumetanide 2 mg PO DAILY 04/24/18 [History] Metoprolol Succinate [Toprol Xl] 25 mg PO DAILY 04/24/18 [History] Benzonatate [Tessalon] 200 mg PO TID PRN #20 capsule 04/27/18 [Rx] Clopidogrel [Plavix] 75 mg PO DAILY #30 tablet 04/27/18 [Rx] GuaiFENesin Liq [Robitussin Liq] 200 mg PO Q6HR #30 mls 04/27/18 [Rx] Sulfamethoxazole/Trimeth DS [Bactrim Ds] 1 each PO BID #10 tablet 04/27/18 [Rx] Allergies/Adverse Reactions: 3 Allergy/AdvReac Type Severity Reaction Status Date / Time adhesive Allergy Blister Verified 03/25/18 19:26 Amoxicillin Allergy Hives Verified 03/25/18 19:26 Oxaprozin [From Daypro] AdvReac Diarrhea Verified 03/25/18 19:26 Date of admission: 04/24/18 14:08 Primary care physician: Maria Elena An Consults: 04/24/18 16:33 Consult to Consulting Services Associate [CONS] Routine Reason for SW Consult: Currently has HH - came in covered in urine and stool , mult wounds 04/24/18 16:34 Consult to Invasive Line Access Team [CONS] Routine Reason for Consult: Limited access Line Type: EPIV PICC line indications: retirement Med/Antibiotic 04/24/18 16:47 Consult to Cardiology [CONS] Routine Comment: Consulting Provider: [facility] [place] Reason for Consult: chest pain and trop elevation Time Notified: 16:47 Call Completed: Yes - Constitutional Vitals: Temp Pulse Resp BP Pulse Ox 97.9 F 81 16 101/75 95 04/27/18 07:42 04/27/18 07:42 04/27/18 07:42 04/27/18 07:42 04/27/18 07:42 General appearance: Present: A&O X 3, obese, answers questions appropriately - Head Head exam: Present: atraumatic, normocephalic - Eye Eye exam: Present: PERRL, conjuntiva pink, sclera anicteric Pupils: Present: PERRL - Neck Neck exam general surgery: Present: supple, trachea midline. Absent: lymphadenopathy - Respiratory Respiratory exam: Present: CTAB. Absent: accessory muscle use, rales, rhonchi, wheezes - Cardiovascular Cardiovascular exam: Present: RRR, +S1, +S2. Absent: diastolic murmur, gallop, rubs, systolic murmur - GI/Abdominal GI/Abdominal exam: Present: normal bowel sounds, soft, no peritoneal signs. Absent: distended, tenderness - Extremities Exam Extremities exam: Present: warm, radial pulses palpable and symmetrical. Absent : calf tenderness, cyanotic, pedal edema - Neurological Exam Neurological exam: Present: CN II-XII intact, oriented X3, no focal deficits. Absent: pronater drift, facial droop, speech deficit - Skin Skin exam: Present: dry, intact - Patient Status Disposition: Home, Self-Care Condition: Good - Discharge Instructions Follow Up With: Maria Elena An MD [Primary Care Provider] - (web requested on 04/27/18. However if you do not hear from your PCP BY Saturday after noon please call ad schedule a hospital follow up in 5-7 days. Thank you!)
[2018-04-27] MEDS ORDERED: Sulfamethoxazole/Trimeth DS 1 EACH TABLET PO SCH (09:00)
[2018-04-27] MEDS: Metoprolol XL (24 HR) Succ 25 MG TAB.ER.24H PO SCH (09:26)
[2018-04-27] MEDS: Nystatin POWDER 30 GM BOTTLE TP SCH (09:26)
[2018-04-27] MEDS: Magnesium Oxide 400 MG TABLET PO SCH (09:26)
[2018-04-27] MEDS: Bumetanide 1 MG TABLET PO SCH (09:26)
[2018-04-27] MEDS: Loratadine 10 MG TABLET PO SCH (09:26)
[2018-04-27] MEDS: Insulin LISPRO 300 UNITS/3 ML VIAL SQ SCH ×2 (09:26→12:51)
[2018-04-27] MEDS: Aspirin 81 MG TAB.CHEW PO SCH (09:26)
[2018-04-27] MEDS: Cholecalciferol (D-3) 1,000 UNIT TABLET PO SCH (09:26)
[2018-04-27] MEDS: Multivit/Ca/Min/Fe/FA 1 TAB TABLET PO SCH (09:26)
--- NOTE | 2018-04-27 10:01 | Physician Discharge Referral ---
Home Health/Hosp Referral Info Transfer to: Home Health - Diagnosis (1) UTI (urinary tract infection) Status: Acute (2) Chest pain Status: Acute (3) Elevated troponin Status: Acute (4) Leukocytosis Status: Acute (5) DVT prophylaxis Status: Acute (6) Hypokalemia Status: Acute (7) Hypomagnesemia Status: Acute (8) Hypophosphatemia Status: Acute - Respiratory Orders Oxygen / L per min Smoking Cessation: Smoking cessation has been advised. For more information, call the [place] [employer] Quit Line at 1-203-FLGA-NOW. - Diet/Nutrition Diet/Nutrition Orders: Cardiac - Activity Activity Orders: Ambulate - Services Needed Following services are medically necessary services: Nursing, Home Health Aide, Physical Therapy - Transfer Medications Prescriptions: GuaiFENesin Liq [Robitussin Liq] 200 mg PO Q6HR #30 mls Benzonatate [Tessalon] 200 mg PO TID PRN #20 capsule PRN Reason: Cough Clopidogrel [Plavix] 75 mg PO DAILY #30 tablet Sulfamethoxazole/Trimeth DS [Bactrim Ds] 1 each PO BID #10 tablet Home Medications: Cholecalciferol (Vitamin D3) [Vitamin D3] 5,000 unit PO DAILY 11/12/16 [History] Levothyroxine [Synthroid] 200 mcg PO DAILY 11/12/16 [History] Loratadine [Claritin] 10 mg PO DAILY 03/08/17 [History] Multivitamin [One Daily Multivitamin] 1 tab PO DAILY 03/08/17 [History] Omeprazole [PriLOSEC] 20 mg PO DAILY 08/25/17 [History] Atorvastatin [Lipitor] 40 mg PO HS 11/14/17 [History] Aspirin 81 mg PO DAILY #30 tab.chew 01/17/18 [Rx] Nystatin POWDER [Nystop] 1 appl TP BID #1 bottle 01/31/18 [Rx] Magnesium Oxide [Mag-Oxide] 400 mg PO BID 03/25/18 [History] Bumetanide 2 mg PO DAILY 04/24/18 [History] Metoprolol Succinate [Toprol Xl] 25 mg PO DAILY 04/24/18 [History] Benzonatate [Tessalon] 200 mg PO TID PRN #20 capsule 04/27/18 [Rx] Clopidogrel [Plavix] 75 mg PO DAILY #30 tablet 04/27/18 [Rx] GuaiFENesin Liq [Robitussin Liq] 200 mg PO Q6HR #30 mls 04/27/18 [Rx] Sulfamethoxazole/Trimeth DS [Bactrim Ds] 1 each PO BID #10 tablet 04/27/18 [Rx] Allergies/Adverse Reactions: 3 Allergy/AdvReac Type Severity Reaction Status Date / Time adhesive Allergy Blister Verified 03/25/18 19:26 Amoxicillin Allergy Hives Verified 03/25/18 19:26 Oxaprozin [From Daypro] AdvReac Diarrhea Verified 03/25/18 19:26 Certification: Further, I certify that my clinical findings support that this patient is homebound (i.e. absences from home require considerable and taxing effort and are for medical reasons or protestant services or infrequently or short duration when for other reasons) because: Homebound Reason: Patient requires assistance of a person or device to safely leave home Attestation: My signature below is to certify that this patient is under my care and that I, or nurse practitioner, or a physician's veterinary assistant working with me, has a face-to -face encounter with this patient.
[2018-04-27 11:04] VITALS: BP 113/65
== END 2018-04-27 15:52 | disposition home or self-care (01) | DRG 690 ==
LOC: 2SOUTHHOLD 23:32 → EMEROO 23:32 → 2SOUTHHOLD 04-24 11:45 → 2ANU 04-25 17:55
PROVIDERS: ADMIT Hospitalist; ATTEND Hospitalist

== ENCOUNTER 2019-02-13 16:22 | Observation (INO) ==
--- NOTE | 2019-02-13 16:39 | Emergency Department Note ---
Disposition Clinical Impression: UTI (urinary tract infection), Weakness, Elevated troponin Disposition: Admitted As Inpatient Condition: Good General Adult HPI - General Chief complaint: ED Extremity Problem,Nontraumatic Stated complaint: left leg issue Time Seen by Provider: 02/13/19 16:31 Source: patient Limitations: physical limitation - History of Present Illness Pain Scale: 0 - Related Data Home Medications Medication Instructions Recorded Confirmed RX: Levothyroxine [Synthroid] 200 mcg PO DAILY 11/12/16 02/14/19 RX: Loratadine [Claritin] 10 mg PO DAILY 03/08/17 02/14/19 RX: Multivitamin [One Daily 1 tab PO DAILY 03/08/17 02/14/19 Multivitamin] RX: Omeprazole [PriLOSEC] 20 mg PO DAILY 08/25/17 02/14/19 RX: Atorvastatin [Lipitor] 40 mg PO HS 11/14/17 02/14/19 RX: Bumetanide 2 mg PO HS 04/24/18 02/14/19 RX: Cholecalciferol (Vitamin D3) 5,000 unit PO DAILY 01/16/19 02/14/19 [Vitamin D3] RX: Enalapril Maleate [Vasotec] 10 mg PO DAILY 01/16/19 02/14/19 RX: Famotidine [Pepcid] 20 mg PO BID 01/16/19 02/14/19 RX: Ferrous Sulfate 325 mg PO BID 01/16/19 02/14/19 RX: Fluticasone Propionate Nasal 1 spray NS DAILY 01/16/19 02/14/19 [Flonase] RX: Fluticasone Propionate 1 puff IH DAILY 01/16/19 02/14/19 [Flovent Hfa] RX: GuaiFENesin/Dextromethorphan 10 ml PO Q6H PRN 01/16/19 02/14/19 [Robitussin Cough-Chest Dm Liq] RX: Nystatin 1 appl TP QID 01/16/19 02/14/19 RX: Potassium Chloride [K-Tab ER] 20 meq PO TID 01/16/19 02/14/19 Previous Rx's Medication Instructions Recorded RX: Aspirin 81 mg PO DAILY #30 tab.chew 01/17/18 RX: Doxycycline 100 mg PO BID #18 capsule 01/18/19 Allergies Allergy/AdvReac Type Severity Reaction Status Date / Time adhesive Allergy Blister Verified 07/07/18 21:04 Amoxicillin Allergy Hives Verified 07/07/18 21:04 Oxaprozin [From Daypro] AdvReac Diarrhea Verified 07/07/18 21:04 Past Medical History - Past Medical History Medical history: Reports: asthma, cancer, CHF, CVA, diabetes, GERD, hyperlipidemia, hypertension, malignancy, migraine, myocardial infarction, thyroid disease, TIA Surgical history: Reports: appendectomy, orthopedic, other, vasectomy, other Psychiatric history: Reports: depression - Social History Smoking Status: Never smoker Smokeless Tobacco Status: No Alcohol use: Reports: occasionally Drug use: Reports: none Physical Exam - General Limitations: physical limitation General appearance: alert Course Vital Signs Temperature 98.1 F 02/13/19 16:26 Pulse Rate 105 02/13/19 16:26 Respiratory Rate 18 02/13/19 16:26 Blood Pressure 122/78 02/13/19 16:26 O2 Sat by Pulse Oximetry 97 02/13/19 16:26 Temperature 97.5 F L 02/15/19 06:34 Pulse Rate 82 02/15/19 06:34 Respiratory Rate 14 02/15/19 06:34 Blood Pressure 127/81 02/15/19 06:34 O2 Sat by Pulse Oximetry 98 02/15/19 06:34 Oxygen Delivery Oxygen Delivery Room Air Medical Decision Making - Lab Data Result diagrams: 02/15/19 01:03 02/15/19 01:03 Lab Results 02/13/19 02/13/19 02/13/19 Range/Units 17:45 18:31 18:31 WBC 9.7 (4.3-11.1) K/mcL RBC 5.30 (4.19-5.50) M/mcL Hgb 13.8 (12.9-16.9) g/dL Hct 46.3 (37.5-50.1) % MCV 87.4 (83.0-100.0) fL MCH 26.0 L (28.0-33.3) pg MCHC 29.8 L (31.6-35.5) g/dL RDW 17.2 H (11.5-14.5) % Plt Count 262 (140-400) K/mcL MPV 10.5 (9.4-12.4) fL Immature Gran % 0.3 (0-4) % Seg Neutrophils % 73.2 % Lymphocytes % 16.1 % Monocytes % 6.0 % Eosinophils % 3.7 % Basophils % 0.7 % Neutrophils # 7.1 (1.6-8.9) K/mcL Lymphocytes # 1.6 (0.6-4.6) K/mcL Monocytes # 0.6 (0.0-1.3) K/mcL Eosinophils # 0.4 (0.0-0.6) K/mcL Basophils # 0.1 (0.0-0.2) K/mcL Sodium 139 (136-145) mEq/L Potassium 3.7 (3.5-5.1) mEq/L Chloride 105 (98-107) mEq/L Carbon Dioxide 24 (23-29) mEq/L BUN 16 (6-20) mg/dL Creatinine 1.04 (0.70-1.30) mg/dL Est GFR ( Amer) > 60 (> 60) Est GFR (Non-Af Amer) > 60 (> 60) BUN/Creatinine Ratio 15 (6-26) Glucose 100 (70-105) mg/dL Calculated Osmolality 289 (280-300) Calcium 9.7 (8.6-10.3) mg/dL Total Bilirubin 0.5 (0.3-1.0) mg/dL AST 17 (13-39) Units/L ALT 12 (7-52) Units/L Alkaline Phosphatase 91 (34-104) Units/L Troponin I 1.70 H* (< 0.04) ng/mL Serum Total Protein 8.2 (6.4-8.9) g/dL Albumin 4.3 (3.5-5.7) g/dL Globulin 3.9 H (2.4-3.5) g/dL Albumin/Globulin Ratio 1.1 (1.1-2.2) Ur Specimen Adequacy See below A Urine Color [place] (Yellow) Urine Clarity Hazy (Clear) Urine pH >=9.0 H (5.0-8.0) pH Units Ur Specific [place] 1.010 (1.010-1.025) Urine Protein 100 H (Neg-Trace) mg/dL Urine Glucose (UA) Normal (Normal) mg/dL Urine Ketones Negative (Negative) mg/dL Urine Blood Large H (Negative) Urine Nitrite Negative (Negative) Urine Bilirubin Negative (Negative) Urine Urobilinogen Normal (Normal) mg/dL Ur Leukocyte Esterase Large H (Negative) Urine Microscopic RBC 0-3 (0-3) per hpf Urine Microscopic WBC TNTC H (0-3) per hpf Ur Squamous Epith Cells Few (None-Few) per lpf Urine Bacteria Many H (None-Few) per hpf Urine Mucus Few (Few) Ur Culture Indicated? YES A (NO) Attestation Statement - Attestation Attestation: I examined this patient and my medical decision-making was reviewed with the Resident Physician. I agree with the documented findings, disposition and treatment plan as described except to the extent set forth below. [id number] time provided Patient arrives stating he has chronic lymphedema to his lower extremities and now has "bites" to his legs. He questions whether or not these could be mouse bites. The patient has no cellulitis identified. He is somewhat disheveled
[2019-02-13] MEDS ORDERED: 0.9 % Sodium Chloride 1,000 ML IVC ONE (16:50)
--- NOTE | 2019-02-13 16:54 | Emergency Department Note ---
Disposition Clinical Impression: Weakness, Elevated troponin UTI (urinary tract infection) Qualifiers: Urinary tract infection type: acute cystitis Hematuria presence: with hematuria Qualified Code(s): N30.01 - Acute cystitis with hematuria Disposition: Admitted As Inpatient Condition: Good Forms: ED Satisfaction Letter Time of Disposition: 20:13 General Adult HPI - General Chief complaint: ED Extremity Problem,Nontraumatic Stated complaint: left leg issue Time Seen by Provider: 02/13/19 16:31 Source: patient Mode of arrival: ambulatory Limitations: no limitations, physical limitation Nursing Notes Reviewed: Yes Vital Signs Reviewed: Yes - History of Present Illness HPI Narrative: Male patient presenting from home after being sent by home health care for possible bug bites to his leg. Patient does see wound care for his lower extremities. Patient with generalized weakness as well. He does have a history of spinal bifida,b/l lymedema , neurogenic bladder s/p urostomy, CHF, CVA, diabetes, recurrent cellulitis and urinary tract infections. He has no other complaints at this time. Denies any fevers or chills. Pain Scale: 0 - Related Data Home Medications Medication Instructions Recorded Confirmed Levothyroxine [Synthroid] 200 mcg PO DAILY 11/12/16 01/16/19 Loratadine [Claritin] 10 mg PO DAILY 03/08/17 01/16/19 Multivitamin [One Daily 1 tab PO DAILY 03/08/17 01/16/19 Multivitamin] Omeprazole [PriLOSEC] 20 mg PO DAILY 08/25/17 01/16/19 Atorvastatin [Lipitor] 40 mg PO HS 11/14/17 01/16/19 Bumetanide 2 mg PO HS 04/24/18 01/16/19 Cholecalciferol (Vitamin D3) 50,000 unit PO QWEEK 01/16/19 01/16/19 [Vitamin D3] Enalapril Maleate [Vasotec] 10 mg PO DAILY 01/16/19 01/16/19 Famotidine [Pepcid] 20 mg PO DAILY 01/16/19 01/16/19 Ferrous Sulfate 325 mg PO BID 01/16/19 01/16/19 Fluticasone Propionate Nasal 1 spray NS DAILY 01/16/19 01/16/19 [Flonase] Fluticasone Propionate [Flovent 1 puff IH QAM 01/16/19 01/16/19 Hfa] GuaiFENesin/Dextromethorphan 10 ml PO Q6H PRN 01/16/19 01/16/19 [Robitussin Cough-Chest Dm Liq] Nystatin 1 appl TP QID 01/16/19 01/16/19 Potassium Chloride [K-Tab ER] 20 meq PO TID 01/16/19 01/16/19 Previous Rx's Medication Instructions Recorded Aspirin 81 mg PO DAILY #30 tab.chew 01/17/18 Doxycycline 100 mg PO BID #18 capsule 01/18/19 Allergies Allergy/AdvReac Type Severity Reaction Status Date / Time adhesive Allergy Blister Verified 07/07/18 21:04 Amoxicillin Allergy Hives Verified 07/07/18 21:04 Oxaprozin [From Daypro] AdvReac Diarrhea Verified 07/07/18 21:04 All systems ED: reviewed and negative except as stated. Review of Systems: As Per HPI Constitutional: Denies: fever Cardiovascular: Denies: chest pain, syncope Respiratory: Denies: dyspnea, sputum production Gastrointestinal: Denies: abdominal pain, nausea, vomiting, diarrhea Integumentary: Reports: other (Lower extremity lesions.) Neurological: Reports: weakness Past Medical History - Past Medical History Attestation: Yes The following information was validated with the patient. Source: patient Medical history: Reports: asthma, cancer, CHF, CVA, diabetes, GERD, hyperlipidemia, hypertension, malignancy, migraine, myocardial infarction, thyroid disease, TIA Surgical history: Reports: appendectomy, orthopedic, other, vasectomy, other Psychiatric history: Reports: depression - Social History Smoking Status: Never smoker Smokeless Tobacco Status: No Alcohol use: Reports: occasionally Drug use: Reports: none Physical Exam - General Limitations: no limitations, physical limitation General appearance: alert, in no apparent distress - Head Head exam: atraumatic, normocephalic, normal inspection - Eye Eye exam: Present: normal appearance, PERRL, EOMI - ENT ENT exam: normal exam, normal oropharynx, mucous membranes moist - Neck Neck exam: Present: normal inspection, full ROM, trachea midline - Chest Chest inspection: Present: normal inspection, symmetric chest wall rise - Respiratory Respiratory exam: Present: normal lung sounds bilaterally. Absent: respiratory distress, accessory muscle use - Cardiovascular Cardiovascular exam: Present: regular rate, normal rhythm, normal heart sounds - Abdominal Exam Abdominal exam: Present: soft, other (Portable appearing colostomy site. Discharge and build up to colostomy bag.). Absent: tenderness, distention, organomegaly - Extremities Exam Extremities exam: Present: full ROM, normal capillary refill, other (Mild erythema and swelling in multiple areas of skin breakdown with open lesions to lower extremities. There does appear to be managing stuck to the patient's leg on the right. Patient's body is unkempt. Feet have visible dirt to them. This is on the bottom and the tops of his feet. It appears to be layered.). Absent: calf tenderness - Back Exam Back exam: Present: normal inspection, full ROM. Absent: tenderness - Neurological Exam Neurological exam: Present: alert, oriented X3 - Psychiatric Psychiatric exam: Present: normal affect, normal mood - Skin Skin exam: Present: warm, dry, intact, normal color. Absent: rash Course Course Narrative: Patient denying any chest pain or shortness of breath reporting generalized weakness and "bug bites" to his legs. States that he does not have enough supplies for his ostomy bag so he has not been changing appropriately. Also is extremely unkempt with dirt on his body. - Reevaluation(s) Reevaluation #1: Patient has an elevated troponin. Patient's cardiac catheterization was last done in January 2018 and showed: Lesion Findings/Interventions * Left Main Coronary Artery There is a 20% stenosis in the LMCA. * Left Anterior Descending There is a 40% stenosis in the Distal LAD. This lesion is further described as diffusely diseased. * Circumflex The Circumflex is angiographically free of disease. The 1st Marginal is angiographically free of disease. The Left PDA is angiographically free of disease. * Right Coronary Artery The RCA is angiographically free of disease. The Right PDA is angiographically free of disease. Reevaluation #2: Left EJ was placed. Nursing notified us that they were having hard time placing a peripheral IV and could not find a ultrasound-guided IV. Time: 20:47 - Consultations Consultation #1: Dr. Virgen accepted patient in stable condition Time: 20:13 Consultation #2: Dr Flower was contacted. He was made aware that the patient's troponin was elevated at 1.70. We also discussed that previous time patient had troponin measured it was also elevated. He is requesting that if the troponin trends up to go ahead and heparinize the patient. Time: 20:17 Vital Signs Temperature 98.1 F 02/13/19 16:26 Pulse Rate 105 02/13/19 16:26 Respiratory Rate 18 02/13/19 16:26 Blood Pressure 122/78 02/13/19 16:26 O2 Sat by Pulse Oximetry 97 02/13/19 16:26 Temperature 98.1 F 02/13/19 16:26 Pulse Rate 105 02/13/19 16:26 Respiratory Rate 18 02/13/19 16:26 Blood Pressure 122/78 02/13/19 16:26 O2 Sat by Pulse Oximetry 97 02/13/19 16:26 Oxygen Delivery Oxygen Delivery Room Air Medical Decision Making - Medical Records Medical records reviewed: Yes I reviewed the patient's medical records. - Lab Data Result diagrams: 02/13/19 18:31 02/13/19 18:31 Lab Results 02/13/19 02/13/19 02/13/19 Range/Units 17:45 18:31 18:31 WBC 9.7 (4.3-11.1) K/mcL RBC 5.30 (4.19-5.50) M/mcL Hgb 13.8 (12.9-16.9) g/dL Hct 46.3 (37.5-50.1) % MCV 87.4 (83.0-100.0) fL MCH 26.0 L (28.0-33.3) pg MCHC 29.8 L (31.6-35.5) g/dL RDW 17.2 H (11.5-14.5) % Plt Count 262 (140-400) K/mcL MPV 10.5 (9.4-12.4) fL Immature Gran % 0.3 (0-4) % Seg Neutrophils % 73.2 % Lymphocytes % 16.1 % Monocytes % 6.0 % Eosinophils % 3.7 % Basophils % 0.7 % Neutrophils # 7.1 (1.6-8.9) K/mcL Lymphocytes # 1.6 (0.6-4.6) K/mcL Monocytes # 0.6 (0.0-1.3) K/mcL Eosinophils # 0.4 (0.0-0.6) K/mcL Basophils # 0.1 (0.0-0.2) K/mcL Sodium 139 (136-145) mEq/L Potassium 3.7 (3.5-5.1) mEq/L Chloride 105 (98-107) mEq/L Carbon Dioxide 24 (23-29) mEq/L BUN 16 (6-20) mg/dL Creatinine 1.04 (0.70-1.30) mg/dL Est GFR ( Amer) > 60 (> 60) Est GFR (Non-Af Amer) > 60 (> 60) BUN/Creatinine Ratio 15 (6-26) Glucose 100 (70-105) mg/dL Calculated Osmolality 289 (280-300) Calcium 9.7 (8.6-10.3) mg/dL Total Bilirubin 0.5 (0.3-1.0) mg/dL AST 17 (13-39) Units/L ALT 12 (7-52) Units/L Alkaline Phosphatase 91 (34-104) Units/L Troponin I 1.70 H* (< 0.04) ng/mL Serum Total Protein 8.2 (6.4-8.9) g/dL Albumin 4.3 (3.5-5.7) g/dL Globulin 3.9 H (2.4-3.5) g/dL Albumin/Globulin Ratio 1.1 (1.1-2.2) Ur Specimen Adequacy See below A Urine Color [place] (Yellow) Urine Clarity Hazy (Clear) Urine pH >=9.0 H (5.0-8.0) pH Units Ur Specific [place] 1.010 (1.010-1.025) Urine Protein 100 H (Neg-Trace) mg/dL Urine Glucose (UA) Normal (Normal) mg/dL Urine Ketones Negative (Negative) mg/dL Urine Blood Large H (Negative) Urine Nitrite Negative (Negative) Urine Bilirubin Negative (Negative) Urine Urobilinogen Normal (Normal) mg/dL Ur Leukocyte Esterase Large H (Negative) Urine Microscopic RBC 0-3 (0-3) per hpf Urine Microscopic WBC TNTC H (0-3) per hpf Ur Squamous Epith Cells Few (None-Few) per lpf Urine Bacteria Many H (None-Few) per hpf Urine Mucus Few (Few) Ur Culture Indicated? YES A (NO) - Radiology Data Radiology results reviewed: Yes I reviewed the patient's radiology results. Chest X-Ray 02/13/19 16:48 IMPRESSION: Shallow inspiration. No acute process. D/ / Jason Valdivia MD / Jason Valdivia MD Interpreting Provider: Jason Valdivia MD - EKG Data EKG #1 EKG attestation: Yes I reviewed and interpreted this EKG. EKG results narrative: Normal sinus rhythm at a rate 84. ND interval is 176. QRS duration is 96. QT is 379. QTC is 448. No signs of acute ischemia. Good R-wave progression. No signs of developing or [place]. No significant change from previous EKG dated 04/24/2018.
[2019-02-13 19:02] LABS: Basophils # 0.1 K/mcL (0.0-0.2); Basophils % 0.7 %; Eosinophils # 0.4 K/mcL (0.0-0.6); Eosinophils % 3.7 %; Hematocrit 46.3 % (37.5-50.1); Hemoglobin 13.8 g/dL (12.9-16.9); Immature Granulocytes % 0.3 % (0-4); Lymphocytes # 1.6 K/mcL (0.6-4.6); Lymphocytes % 16.1 %; Mean Corpuscular HGB Conc 29.8 g/dL (31.6-35.5); Mean Corpuscular Volume 87.4 fL (83.0-100.0); Mean Platelet Volume 10.5 fL (9.4-12.4); Monocytes # 0.6 K/mcL (0.0-1.3); Neutrophils # 7.1 K/mcL (1.6-8.9); Platelet Count 262 K/mcL (140-400); Red Cell Distribution Width 17.2 % (11.5-14.5); Segmented Neutrophils % 73.2 %
[2019-02-13 19:17] LABS: Alanine Aminotransferase 12 Units/L (7-52); Albumin 4.3 g/dL (3.5-5.7); Albumin/Globulin Ratio 1.1 (1.1-2.2); Alkaline Phosphatase 91 Units/L (34-104); Aspartate Amino Transferase 17 Units/L (13-39); BUN/Creatinine Ratio 15 (6-26); Bilirubin,Total 0.5 mg/dL (0.3-1.0); Blood Urea Nitrogen 16 mg/dL (6-20); Calcium 9.7 mg/dL (8.6-10.3); Carbon Dioxide 24 mEq/L (23-29); Chloride 105 mEq/L (98-107); Globulin 3.9 g/dL (2.4-3.5); Glucose 100 mg/dL (70-105); Osmolality,Calculated 289 (280-300); Potassium 3.7 mEq/L (3.5-5.1); Sodium 139 mEq/L (136-145); Total Protein 8.2 g/dL (6.4-8.9); eGFR For Non-African Americans > 60 (> 60)
[2019-02-13 19:35] LABS: Bilirubin,Urine Negative (Negative); Blood,Urine Large (Negative); Color,Urine Pink (Yellow); Glucose,Urine (UA) Normal (Normal); Ketones,Urine Negative (Negative); Leukocyte Esterase,Urine Large (Negative); Nitrite,Urine Negative (Negative); PH,Urine >=9.0 pH Units (5.0-8.0); Protein,Urine 100 mg/dL (Neg-Trace); Urobilinogen,Urine Normal (Normal)
[2019-02-13 19:36] LABS: Clarity,Urine Hazy (Clear)
[2019-02-13 19:52] LABS: Bacteria,Urine Many per hpf (None-Few); Mucus,Urine Few (Few); Squamous Epithelial Cell,Urine Few per lpf (None-Few); WBC,Urine TNTC per hpf (0-3)
[2019-02-13 19:53] LABS: RBC,Urine 0-3 per hpf (0-3)
[2019-02-13] MEDS ORDERED: Aspirin 325 MG TABLET PO ONE (20:01)
[2019-02-13] MEDS ORDERED: Naloxone 0.4 MG/ML INJ IVP PRN ×2 (22:11)
[2019-02-13] MEDS ORDERED: Dextrose Gel 15 GM/37.5 ML TUBE PO PRN ×2 (22:52)
[2019-02-13] MEDS ORDERED: D5% in Water 1,000 ML IVC PRN (22:52)
[2019-02-13] MEDS ORDERED: *HR* Dextrose 50 % in Water (Syg) 50 ML SYRINGE IVP PRN (22:52)
[2019-02-13] MEDS: Insulin LISPRO 300 UNITS/3 ML VIAL SQ SCH ×2 (23:48)
--- NOTE | 2019-02-14 00:08 | Internal Med History&Physical ---
<MaribelljudyteresaAlicia Francisco - Last Filed: 02/14/19 03:23> Date of Encounter: 02/14/19 Time of Encounter: 19:45 Internal Medicine - H&P: HPI Chief complaint: bug bites Admitted From: Home History of present illness: Mr. Leone is a 49 year old male presenting for concern for "bug bites" to bilateral lower extremities complicating his chronic lymphedema, skin irritation around urostomy bag and generalized weakness. He has a past medical history of bladder cancer, diagnosed 11 years ago, status post cystectomy with urostomy placement [address] [facility]. He also has a past medical history of asthma, CHF, CAD with SD, CVA, DM, GERD, hyperlipidemia, hypertension, migraines, hypothyroidism, spina bifida with neurogenic bladder, bilateral chronic lymphedema, pituitary tumor. Patient states that he has chronic bilateral lower extremity edema worse on the left side with 2 days of multiple lesions diffusely on his lower extremities. Home health follows with him 3 days a week and his sister who is also POA takes care of him the remaining 4 days. Patient states that he is supposed to change his urostomy bag daily, however he is currently only receiving 10 bags per month which is causing him to have repeated urostomy bag leaks, skin irritation, and multiple repeated urinary tract infections. The patient has been planning on going back to [facility] to have bilateral nephrostomy tubes placed instead of the urostomy however he has had urinary tract infections every time he is planned to go. He admits to generalized weakness, difficulty swallowing with vomiting, cough, dyspnea on exertion, pain at his ostomy site which is 2 out of 10, stabbing, and worse with ambulation, hematuria, chronic constipation, lower extremity edema with multiple lesions over lower extremities. He denies any fever, nausea, vomiting, vision changes, hearing changes, chest pain, pleuritic pain, diarrhea. Secondary to the spina bifida, patient does not have much sensation in bilateral lower extremities. He is unable to admit or deny calf pain. Past Med Surg Social Fam HX - Past Medical History Medical history: asthma, cancer, CHF, CVA, diabetes, GERD, hyperlipidemia, hypertension, malignancy, migraine, myocardial infarction, thyroid disease, TIA Additional medical history: bladder cancer Psychiatric history: depression - Past Surgical History Surgical History: appendectomy, orthopedic, other, vasectomy, other Additional surgical history: cystectomy. urostomy - Social History Smoking Status: Never smoker Smokeless Tobacco Status: No Alcohol use: occasionally Drug use: none - Family History Brother Family Member Ethnicity: Non- Living Status: Still Living Hx Family Cardiac Disorders: Yes (HTN) Father Family Member Ethnicity: Non- Living Status: Hx Family Cardiac Disorders: Yes (CHF, HTN) Hx Family Respiratory Disorders: Yes (Asthma, emphysema) Hx Family Cancer: Yes (Lung) Hx Family GI Disorders: No Hx Family Endocrine Disorder: Yes Hx Family Neuromuscular Disorders: No Hx Family Neurologic Disorders: No Hx Family HEENT Disorders: No Hx Family Autoimmune Disorders: No Mother Family Member Ethnicity: Non- Living Status: Still Living Hx Family Cardiac Disorders: Yes (HTN) Hx Family Endocrine Disorder: Yes (DM) Hx Family Neurologic Disorders: Yes (Dementia) Sister Family Member Ethnicity: Non- Living Status: Still Living Hx Family Cardiac Disorders: No Hx Family Respiratory Disorders: Yes Hx Family Cancer: No Hx Family GI Disorders: Yes Hx Family Endocrine Disorder: Yes Hx Family Neuromuscular Disorders: Yes Hx Family Neurologic Disorders: Yes Internal Medicine - H&P: Meds RX: Levothyroxine [Synthroid] 200 mcg PO DAILY 11/12/16 [History] RX: Loratadine [Claritin] 10 mg PO DAILY 03/08/17 [History] RX: Multivitamin [One Daily Multivitamin] 1 tab PO DAILY 03/08/17 [History] RX: Omeprazole [PriLOSEC] 20 mg PO DAILY 08/25/17 [History] RX: Atorvastatin [Lipitor] 40 mg PO HS 11/14/17 [History] RX: Aspirin 81 mg PO DAILY #30 tab.chew 01/17/18 [Rx] RX: Bumetanide 2 mg PO HS 04/24/18 [History] RX: Cholecalciferol (Vitamin D3) [Vitamin D3] 50,000 unit PO QWEEK 01/16/19 [History] RX: Enalapril Maleate [Vasotec] 10 mg PO DAILY 01/16/19 [History] RX: Famotidine [Pepcid] 20 mg PO DAILY 01/16/19 [History] RX: Ferrous Sulfate 325 mg PO BID 01/16/19 [History] RX: Fluticasone Propionate Nasal [Flonase] 1 spray NS DAILY 01/16/19 [History] RX: Fluticasone Propionate [Flovent Hfa] 1 puff IH QAM 01/16/19 [History] RX: GuaiFENesin/Dextromethorphan [Robitussin Cough-Chest Dm Liq] 10 ml PO Q6H PRN 01/16/19 [History] RX: Nystatin 1 appl TP QID 01/16/19 [History] RX: Potassium Chloride [K-Tab ER] 20 meq PO TID 01/16/19 [History] RX: Doxycycline 100 mg PO BID #18 capsule 01/18/19 [Rx] Allergy/AdvReac Type Severity Reaction Status Date / Time adhesive Allergy Blister Verified 07/07/18 21:04 Amoxicillin Allergy Hives Verified 07/07/18 21:04 Oxaprozin [From Daypro] AdvReac Diarrhea Verified 07/07/18 21:04 All Systems PM: A 10-system review of systems was performed and is negative for pertinent findings except as documented above in the HPI. - Constitutional Constitutional: weakness, no chills, no fatigue, no fever(s), no falls - EENT Eyes: no change in vision Ears: no decreased hearing Nose, mouth and throat: dysphagia, no neck pain, no odynophagia - Breasts Breasts: mass - Cardiovascular Cardiovascular ROS IM: dyspnea on exertion, edema, palpitations, no chest pain, no irregular heart rhythm, no syncope - Respiratory Respiratory: cough, dyspnea on exertion, no hemoptysis, no pain on inspiration - Gastrointestinal Gastrointestinal: abdominal pain, constipation, dysphagia, vomiting, no change in bowel habits, no diarrhea, no heartburn, no hematochezia, no loose stools, no melena - Genitourinary Genitourinary ROS male: hematuria, no difficulty urinating, no dysuria, no urinary frequency, no urinary hesitancy, no urinary incontinence, no urinary urgency - Musculoskeletal Musculoskeletal ROS IM: no arthralgias, no myalgias, no neck pain - Integumentary Integumentary IM: new lesions, sores, no pruritus, no unusual bruising - Neurological Neurological ROS: weakness, no abnormal gait, no frequent falls, no paresthesias - Psychiatric Psychiatric: no anxiety, no depression - Hematologic/Lymphatic Hematologic/Lymphatic: no easy bleeding, no easy bruising - Allergic/Immunologic Allergic/Immunologic: no uticaria - Constitutional Vitals: Temp Pulse Resp BP Pulse Ox 97.6 F 83 18 126/90 99 02/13/19 23:19 02/13/19 23:19 02/13/19 23:19 02/13/19 23:19 02/13/19 23:19 Exam: Gen.: Vitals noted. No acute distress. AAOx3, resting comfortably in bed. HEENT: PERRL/EOMI, oropharynx clear, dental caries, Normocephalic, atraumatic, MMM Neck: Supple. No adenopathy. Trachea midline. No cervical midline tenderness Cardiac: RRR, no murmur, +S1/S2, no elevated JVD. bilateral lower extremity nonpitting edema, 1+ right, 2+ left. Radial pulses 2+ and symmetrical, posterior tibial and dorsal pedis pulses 1+ and symmetrical. Capillary refill less than 2 seconds. Pulmonary: Diminished breath sounds bilaterally, no wheezes, rales or rhonchi, equal chest expansion, unlabored breathing Abdomen: soft, mild tenderness to palpation around ostomy in right lower quadrant. No fluctuance or crepitus around ostomy, mild erythema and skin irritation present around ostomy bag, what appears to be purulent material as well as urine leaking from seal. BS noted, no guarding, no palpable HSM Skin: warm and dry, erythema bilaterally to lower extremities, multiple 1 cm skin lesions on present circumferentially, minimal erythema, no drainage from lesions. MSK: ROM intact, no joint swelling noted, gait no assessed while in bed. Non tender calf or clubbing Neuro: A&Ox3, moves all extremities, decreased sensation over lower extremities, CN2-12 intact Psych: Appropriate mood and behavior, AOx3 Internal Med - H&P Results - Labs CBC & Chem 7: 02/13/19 18:31 02/13/19 18:31 Labs: Short CBC 02/13/19 Range/Units 18:31 WBC 9.7 (4.3-11.1) K/mcL Hgb 13.8 (12.9-16.9) g/dL Hct 46.3 (37.5-50.1) % Plt Count 262 (140-400) K/mcL Neutrophils # 7.1 (1.6-8.9) K/mcL BMP 02/13/19 18:31 Sodium 139 Potassium 3.7 Chloride 105 Carbon Dioxide 24 BUN 16 Creatinine 1.04 Glucose 100 Calcium 9.7 Cardiac Enzymes 02/13/19 Range/Units 18:31 Troponin I 1.70 H* (< 0.04) ng/mL Liver Function 02/13/19 Range/Units 18:31 Total Bilirubin 0.5 (0.3-1.0) mg/dL AST 17 (13-39) Units/L ALT 12 (7-52) Units/L Alkaline Phosphatase 91 (34-104) Units/L Albumin 4.3 (3.5-5.7) g/dL Urine 02/13/19 Range/Units 17:45 Urine Color [place] (Yellow) Urine Clarity Hazy (Clear) Urine pH >=9.0 H (5.0-8.0) pH Units Ur Specific [place] 1.010 (1.010-1.025) Urine Protein 100 H (Neg-Trace) mg/dL Urine Glucose (UA) Normal (Normal) mg/dL - Impressions ITS Impressions Chest X-Ray 02/13/19 16:48 IMPRESSION: Shallow inspiration. No acute process. D/ / Jason Valdivia MD / Jason Valdivia MD Interpreting Provider: Jason Valdivia MD - Assessment and Plan (1) Elevated troponin Current Visit: Yes Status: Acute Assessment and plan: Patient has a history of chronic elevated troponin since 01/2018 as well as CAD. Patient denies chest pain, however does admit to exertional shortness of breath. Troponin at presentation elevated at 1.70, repeat at 1.65 S/P 325 mg aspirin - EKG performed 02/13/19 at 18:24 showed normal sinus rhythm, heart rate 84, normal axis, normal intervals, no ST segment elevation or depression, no signs of ischemia. - Repeat EKG 02/13/19 at 23:56 showed normal sinus rhythm, heart rate 84, normal axis, normal intervals, no ST segment elevation or depression, unchanged from previous. - Review of Lab report on 01/13/18 shows 20% stenosis in LMCA, 40% stenosis in distal LAD, circumflex, first marginal and left PDA as well as right RCA, right PDA are angiographically free of disease. - Last ECHO 04/26/18 revealed LVEF 60-65% with normal right ventricular function and normal left ventricular motion Cardiology has been consulted- Dr Flower recommended beginning heparin if troponins trend upwards, however are currently trending down. Continuous cardiac monitoring Repeat troponin at 6 AM. (2) Lymphedema of both lower extremities Current Visit: Yes Status: Acute Assessment and plan: Patient has a history of chronic bilateral lymphedema Currently 1+ on right and 2+ on the left which patient states is his baseline Patient has decreased sensation in bilateral lower extremities secondary to spina bifida, he is unable to admit or deny to calf pain Review of chart shows venous ultrasound done 08/06/17 which shows chronic superficial venous thrombus in the left lesser saphenous vein Will do Doppler ultrasound of bilateral lower extremities for further venous evaluation (3) Skin lesion of right lower extremity Current Visit: Yes Status: Acute Assessment and plan: Patient has multiple 1 cm lesions circumferentially around bilateral lower extremities for 2 day duration No tenderness to palpation, no fluctuance, no drainage from wounds Will consult wound care Start Bactroban (4) Skin lesion of left lower extremity Current Visit: Yes Status: Acute Assessment and plan: See management for skin lesion of right lower extremity (5) Skin inflammation at urostomy site Current Visit: No Status: Acute Assessment and plan: Patient has skin irritation surrounding urostomy site Patient changing urostomy bag every 3 days secondary to not receiving enough bags at home Urostomy seal is leaking No crepitus or fluctuance around urostomy site, no erythema present, no signs of cellulitis Will consult wound care Consult to aids social worker for medical supplies (6) Abnormal urinalysis Current Visit: Yes Status: Acute Assessment and plan: Patient's UA positive for hematuria, leukocyte esterase, elevated white blood cells and bacteria History of multiple urinary tract infections with multidrug resistant organisms Patient currently asymptomatic, no suprapubic tenderness to palpation, afebrile, no leukocytosis Urine sample most likely contaminated Continue to monitor (7) Weakness generalized Current Visit: Yes Status: Acute Assessment and plan: Patient admits to generalized weakness, history of spina bifida Neurologically the patient is at baseline Suspect deconditioning Consult PT/OT (8) Dysphagia Current Visit: Yes Status: Acute Assessment and plan: Patient admits to chronic dysphasia with vomiting intermittently after swallowing food We will keep patient nothing by mouth until formal swallow evaluation Qualifiers: Dysphagia type: unspecified Qualified Code(s): R13.10 - Dysphagia, unspecified (9) Diabetes mellitus Current Visit: Yes Status: Acute Assessment and plan: History of diabetes mellitus Continue low-dose subcutaneous insulin Continue to monitor glucose every 6 hours. Qualifiers: Diabetes mellitus type: type 2 Diabetes mellitus correction insulin use: without termite technician use Diabetes mellitus complication status: with skin complications Diabetes mellitus complication detail: with other skin complication Qualified Code(s): E11.628 - Type 2 diabetes mellitus with other skin complications (10) DVT prophylaxis Current Visit: Yes Status: Acute Assessment and plan: Subcutaneous heparin - Time Spent With Patient Total time spent is greater than 50% in coordination of care (as documented) at patient's floor/unit and/or counseling patient: Becky Schulte - Last Filed: 02/14/19 05:16> Date of Encounter: 02/13/19 All Systems PM: A 10-system review of systems was performed and is negative for pertinent findings except as documented above in the HPI. - Constitutional Vitals: Temp Pulse Resp BP Pulse Ox 97.6 F 83 18 126/90 99 02/13/19 23:19 02/13/19 23:19 02/13/19 23:19 02/13/19 23:19 02/13/19 23:19 Internal Med - H&P Results - Labs CBC & Chem 7: 02/13/19 18:31 02/13/19 18:31 Labs: Short CBC 02/13/19 Range/Units 18:31 WBC 9.7 (4.3-11.1) K/mcL Hgb 13.8 (12.9-16.9) g/dL Hct 46.3 (37.5-50.1) % Plt Count 262 (140-400) K/mcL Neutrophils # 7.1 (1.6-8.9) K/mcL BMP 02/13/19 18:31 Sodium 139 Potassium 3.7 Chloride 105 Carbon Dioxide 24 BUN 16 Creatinine 1.04 Glucose 100 Calcium 9.7 Cardiac Enzymes 02/13/19 Range/Units 18:31 Troponin I 1.70 H* (< 0.04) ng/mL Liver Function 02/13/19 Range/Units 18:31 Total Bilirubin 0.5 (0.3-1.0) mg/dL AST 17 (13-39) Units/L ALT 12 (7-52) Units/L Alkaline Phosphatase 91 (34-104) Units/L Albumin 4.3 (3.5-5.7) g/dL Urine 02/13/19 Range/Units 17:45 Urine Color [place] (Yellow) Urine Clarity Hazy (Clear) Urine pH >=9.0 H (5.0-8.0) pH Units Ur Specific [place] 1.010 (1.010-1.025) Urine Protein 100 H (Neg-Trace) mg/dL Urine Glucose (UA) Normal (Normal) mg/dL - Impressions ITS Impressions Chest X-Ray 02/13/19 16:48 IMPRESSION: Shallow inspiration. No acute process. D/ / Jason Valdivia MD / Jason Valdivia MD Interpreting Provider: Jason Valdivia MD - Time Spent With Patient Total time spent is greater than 50% in coordination of care (as documented) at patient's floor/unit and/or counseling patient: - Attending Attestation I performed a history and physical exam of the patient and discussed management with the resident. I reviewed the resident's note and agree with the documented findings and plan of care. Sammy Leone is a 49 year old male with spina bifida and s/p cystectomy for bladder cancer with a urostomy bag who presented for lower extremity wounds of unclear etiology. Based on my physical exam they do not appear cellulitic. He has multiple areas of excoriations and scab formations with accentuated red follicles. No systemic signs of illness present. I do not think he necessitates systemic antimicrobials at this time but rather local wound care and topical therapies. His UA is positive but this should be put into the context that it is not a sterile specimen but rather miller always be contaminated. He has no signs of infection or illness warranting treatment of this and therefore adequate stewardship should be performed to avoid causing mor e MDRO development in this patient which would be detrimental to him in the long-term. If he were to become febrile, diaphoretic, develop leukocytosis and other features then it would be a different story. A troponin test was done for unclear reasons. It is seen that he chronically has elevated troponins close to this level. No concern for ACS based on clinical presentation and EKG. No intervention warranted at this time. He needs close outpatient monitoring for his plethora of baseline medical issues and was advised accordingly. MIC SNYDER.
[2019-02-14] MEDS: *HR* Heparin 5,000 UNIT/ML VIAL SQ SCH ×3 (00:28→17:09)
[2019-02-14 07:50] LABS: Basophils # 0.1 K/mcL (0.0-0.2); Basophils % 0.9 %; Eosinophils # 0.5 K/mcL (0.0-0.6); Eosinophils % 6.4 %; Hematocrit 39.7 % (37.5-50.1); Immature Granulocytes % 0.1 % (0-4); Lymphocytes # 1.3 K/mcL (0.6-4.6); Lymphocytes % 17.9 %; Mean Corpuscular HGB Conc 30.5 g/dL (31.6-35.5); Mean Corpuscular Hemoglobin 26.1 pg (28.0-33.3); Mean Corpuscular Volume 85.6 fL (83.0-100.0); Mean Platelet Volume 10.7 fL (9.4-12.4); Monocytes # 0.6 K/mcL (0.0-1.3); Monocytes % 8.3 %; Platelet Count 280 K/mcL (140-400); Red Blood Count 4.64 M/mcL (4.19-5.50); Red Cell Distribution Width 16.7 % (11.5-14.5); Segmented Neutrophils % 66.4 %
[2019-02-14 07:54] LABS: Hemoglobin 12.1 g/dL (12.9-16.9)
[2019-02-14 07:56] LABS: BUN/Creatinine Ratio 17 (6-26); Blood Urea Nitrogen 14 mg/dL (6-20); Calcium 9.3 mg/dL (8.6-10.3); Carbon Dioxide 22 mEq/L (23-29); Chloride 105 mEq/L (98-107); Glucose 112 mg/dL (70-105); Osmolality,Calculated 287 (280-300); Sodium 138 mEq/L (136-145); eGFR For Non-African Americans > 60 (> 60)
[2019-02-14] MEDS: Insulin LISPRO 300 UNITS/3 ML VIAL SQ SCH ×4 (08:01→21:52)
--- NOTE | 2019-02-14 09:21 | Internal Med Progress Note ---
<Kareem Espinal - Last Filed: 02/14/19 14:17> Hospitalist Progress Note - Encounter Date of Encounter: 02/14/19 Time of Encounter: 11:00 - Subjective Interval History: Patient was seen and examined at bedside this morning. He states that he presented to the emergency room with complaint of leg itching and swelling. He has no other complaints this morning including fevers, chills, shortness of breath, abdominal pain, nausea, vomiting. He denies any urinary symptoms. - Exam Vitals: Temp Pulse Resp BP Pulse Ox 97.2 F L 74 18 106/68 95 02/14/19 07:27 02/14/19 07:27 02/14/19 07:27 02/14/19 07:27 02/14/19 04:58 Exam: Gen.: Vitals noted. No acute distress. Alert and oriented, responds to questions appropriately, resting comfortably in bed. Mildly unkempt HEENT: PERRL/EOMI, oropharynx clear, Normocephalic, atraumatic, MMM Cardiac: RRR, no murmur, +S1/S2, 2+ BLE edema Pulmonary: CTA bilaterally, no wheezes, rales or rhonchi, diminished in bases. equal chest expansion, unlabored breathing Abdomen: soft, nontender, BS noted, no guarding, no palpable HSM. Ostomy bag in place without evidence of surrounding infection. Skin: warm and dry, multiple lesions in bilateral lower extremities are representing possible insect bites MSK: ROM not assessed. Moves all extremities, no joint swelling noted, gait no assessed while in bed. Non tender calf or clubbing Neuro: A&O, moves all extremities, no focal deficits, sensation intact Psych: Appropriate mood and behavior - Assessment and Plan (1) NSTEMI (non-ST elevated myocardial infarction) Current Visit: Yes Status: Suspected Assessment and Plan: - Suspect that this may be related type 2 NSTEMI - Troponin elevated at 1.70 on admission, trended to 1.65/1.85 most recently - Cardiology consulted in ED, appreciate recommendations - Heparin gtt started - Previous cardiac workup including echocardiogram 04/18 shows EF 60%, LHC 01/19 shows mild 2 vessel CAD Plan - Continue heparin gtt - Continue home CAD medications of asa, statin, mirtha - Further recommendations per cardiology (2) Lower extremity edema Current Visit: Yes Status: Chronic Assessment and Plan: - Suspect this is acute on chronic - Etiology is likely related to known history of lymphedema and less likely congestive heart failure - Kidney function and hepatic function within normal limits - No signs of additional fluid overload including no JVD, no shortness of breath, lungs clear to auscultation - Patient also reports possible bug bite some on bilateral lower extremities which may be contributing to swelling - We will advise symptomatic control this time (3) UTI (urinary tract infection) Current Visit: Yes Status: Suspected Assessment and Plan: - Suspect that this is related to colonization rather than acute infection - Patient is asymptomatic - Patient has a known urostomy with multiple multidrug resistant organisms in the past - Will not give antibiotics at this time and await culture results (4) Essential hypertension Current Visit: Yes Status: Chronic Assessment and Plan: Currently well-controlled at 115/71 We will continue home medications (5) Hyperlipidemia Current Visit: Yes Status: Chronic Assessment and Plan: Continue home statin (6) History of urostomy Current Visit: Yes Status: Chronic Assessment and Plan: Secondary to neurogenic bladder and spina bifida As above for UTI wound care consult placed (7) Morbid obesity with BMI of 40.0-44.9, adult Current Visit: Yes Status: Chronic Assessment and Plan: Advise outpatient list of modifications (8) GERD (gastroesophageal reflux disease) Current Visit: Yes Status: Chronic Assessment and Plan: Reports reasonable control Continue home medications (9) Diabetes Current Visit: Yes Status: Chronic Assessment and Plan: Known history of diabetes with well-controlled glucose at this time with most recent blood sugar 112 Most recent hemoglobin A1c of 6.7% on 04/24/18 We will repeat A1c with morning labs Continue low dose sliding scale insulin (10) Congestive heart failure Current Visit: Yes Status: Chronic Assessment and Plan: Known history of diastolic heart failure, most recent echocardiogram in April 2018 shows ejection fraction of 60% Does not appear to be acute exacerbation Tolerating room air (11) DVT prophylaxis Current Visit: Yes Status: Acute Assessment and Plan: Currently on heparin drip (12) Elevated troponin Current Visit: Yes Status: Acute Assessment and Plan: As above - Time Spent with Patient Total time spent is greater than 50% in coordination of care (as documented) at patient's floor/unit and/or counseling patient: Internal Medicine: Result - Labs CBC & Chem 7: 02/14/19 10:17 02/14/19 06:58 Labs: Short CBC 02/13/19 02/14/19 Range/Units 18:31 06:58 WBC 9.7 7.5 (4.3-11.1) K/mcL Hgb 13.8 12.1 L D (12.9-16.9) g/dL Hct 46.3 39.7 (37.5-50.1) % Plt Count 262 280 (140-400) K/mcL Neutrophils # 7.1 5.0 (1.6-8.9) K/mcL BMP 02/13/19 02/14/19 18:31 06:58 Sodium 139 138 Potassium 3.7 4.0 Chloride 105 105 Carbon Dioxide 24 22 L BUN 16 14 Creatinine 1.04 0.83 Glucose 100 112 H Calcium 9.7 9.3 Cardiac Enzymes 02/13/19 02/13/19 02/14/19 Range/Units 18:31 23:07 06:58 Troponin I 1.70 H* 1.65 H* 1.85 H* (< 0.04) ng/mL Liver Function 02/13/19 Range/Units 18:31 Total Bilirubin 0.5 (0.3-1.0) mg/dL AST 17 (13-39) Units/L ALT 12 (7-52) Units/L Alkaline Phosphatase 91 (34-104) Units/L Albumin 4.3 (3.5-5.7) g/dL Urine 02/13/19 Range/Units 17:45 Urine Color [place] (Yellow) Urine Clarity Hazy (Clear) Urine pH >=9.0 H (5.0-8.0) pH Units Ur Specific [place] 1.010 (1.010-1.025) Urine Protein 100 H (Neg-Trace) mg/dL Urine Glucose (UA) Normal (Normal) mg/dL - Impressions Impressions Chest X-Ray 02/13/19 16:48 IMPRESSION: Shallow inspiration. No acute process. D/ / Jason Valdivia MD / Jason Valdivia MD Interpreting Provider: Jason Valdivia MD Consult Discharge Plan - Plan Referrals: Maria Elena An MD [Primary Care Provider] - <Baldev Shirley - Last Filed: 02/14/19 15:50> Hospitalist Progress Note - Encounter Date of Encounter: 02/14/19 - Exam Vitals: Temp Pulse Resp BP Pulse Ox 98.1 F 81 16 119/72 95 02/14/19 14:40 02/14/19 14:40 02/14/19 14:40 02/14/19 14:40 02/14/19 04:58 - Assessment and Plan (1) UTI (urinary tract infection) Current Visit: Yes Status: Suspected Assessment and Plan: Pt does not have bladder - this is most likely colonization with urostomy. (2) Essential hypertension Current Visit: Yes Status: Chronic (3) Hyperlipidemia Current Visit: Yes Status: Chronic (4) History of urostomy Current Visit: Yes Status: Chronic (5) DVT prophylaxis Current Visit: Yes Status: Acute (6) Lower extremity edema Current Visit: Yes Status: Chronic (7) Morbid obesity with BMI of 40.0-44.9, adult Current Visit: Yes Status: Chronic (8) GERD (gastroesophageal reflux disease) Current Visit: Yes Status: Chronic (9) Diabetes Current Visit: Yes Status: Chronic (10) Congestive heart failure Current Visit: Yes Status: Chronic (11) NSTEMI (non-ST elevated myocardial infarction) Current Visit: Yes Status: Suspected (12) Elevated troponin Current Visit: Yes Status: Acute (13) Lymphedema of both lower extremities Current Visit: Yes Status: Chronic (14) Skin lesion of left lower extremity Current Visit: Yes Status: Acute - Time Spent with Patient Total time spent is greater than 50% in coordination of care (as documented) at patient's floor/unit and/or counseling patient: Internal Medicine: Result - Labs CBC & Chem 7: 02/14/19 10:17 02/14/19 06:58 Labs: Short CBC 02/13/19 02/14/19 02/14/19 Range/Units 18:31 06:58 10:17 WBC 9.7 7.5 7.8 (4.3-11.1) K/mcL Hgb 13.8 12.1 L D 12.7 L (12.9-16.9) g/dL Hct 46.3 39.7 41.4 (37.5-50.1) % Plt Count 262 280 291 (140-400) K/mcL Neutrophils # 7.1 5.0 (1.6-8.9) K/mcL BMP 02/13/19 02/14/19 18:31 06:58 Sodium 139 138 Potassium 3.7 4.0 Chloride 105 105 Carbon Dioxide 24 22 L BUN 16 14 Creatinine 1.04 0.83 Glucose 100 112 H Calcium 9.7 9.3 Cardiac Enzymes 02/13/19 02/13/19 02/14/19 Range/Units 18:31 23:07 06:58 Troponin I 1.70 H* 1.65 H* 1.85 H* (< 0.04) ng/mL Liver Function 02/13/19 Range/Units 18:31 Total Bilirubin 0.5 (0.3-1.0) mg/dL AST 17 (13-39) Units/L ALT 12 (7-52) Units/L Alkaline Phosphatase 91 (34-104) Units/L Albumin 4.3 (3.5-5.7) g/dL Urine 02/13/19 Range/Units 17:45 Urine Color [place] (Yellow) Urine Clarity Hazy (Clear) Urine pH >=9.0 H (5.0-8.0) pH Units Ur Specific [place] 1.010 (1.010-1.025) Urine Protein 100 H (Neg-Trace) mg/dL Urine Glucose (UA) Normal (Normal) mg/dL - ABG Interpretation ABG results: PT/INR, D-dimer PT 11.6 Seconds (9.4-12.1) 02/14/19 10:17 - Impressions Impressions Chest X-Ray 02/13/19 16:48 IMPRESSION: Shallow inspiration. No acute process. D/ / Jason Valdivia MD / Jason Valdivia MD Interpreting Provider: Jason Valdivia MD - Attending Attestation I examined this patient and my medical decision-making was reviewed with the Resident Physician on 02/14/19. I agree with the documented findings, disposition and treatment plan as described except to the extent set forth below. Mr Leone is currently in observation for leg wounds and elevated troponin. He remains moderate to high risk due to potential for worsening clinical status. Mr Leone feels OK. He is worried about wounds on legs. Says he was told "downstairs" (in ED) that we would be looking into the mass recently found in L breast (i.e. order mammogram) and image his pituitary (though he has no new symptoms). We discussed that some of this is outpatient work up and really we are waiting for cardiology input and further evaluation of legs. Urine cx pending as well (though most likely colonization). No fever or chills. No CP or SOB. Exam alert Comfortable Mucus membranes dry Heart reg and not tachy No wheeze L breast with no distinct mass felt - ? thickened skin Abd obese and soft Both lower extremities with edema and small areas that are scabbed. I/P 1. Wounds b/l legs - ? bites versus other. Topical treatment. If no improvement anticipate derm consult 2. Elevated troponin - echo pending. 3. Urostomy Further diagnoses and plan as above. <Kareem Espinal - Last Filed: 02/14/19 14:17> (3) UTI (urinary tract infection) Qualifiers: Urinary tract infection type: acute cystitis Hematuria presence: without hematuria Qualified Code(s): N30.00 - Acute cystitis without hematuria (5) Hyperlipidemia Qualifiers: Hyperlipidemia type: pure hypercholesterolemia Qualified Code(s): E78.00 - Pure hypercholesterolemia, unspecified (8) GERD (gastroesophageal reflux disease) Qualifiers: Esophagitis presence: esophagitis presence not specified Qualified Code(s): K21.9 - Gastro-esophageal reflux disease without esophagitis (9) Diabetes Qualifiers: Diabetes mellitus type: type 2 Diabetes mellitus mcc insulin use: without mcc use Diabetes mellitus complication status: with skin complications Diabetes mellitus complication detail: with other skin ulcer Qualified Code(s): E11.622 - Type 2 diabetes mellitus with other skin ulcer <Baldev Shirley - Last Filed: 02/14/19 15:50> (1) UTI (urinary tract infection) Qualifiers: Urinary tract infection type: acute cystitis Hematuria presence: without hematuria Qualified Code(s): N30.00 - Acute cystitis without hematuria (3) Hyperlipidemia Qualifiers: Hyperlipidemia type: mixed hyperlipidemia Qualified Code(s): E78.2 - Mixed hyperlipidemia (8) GERD (gastroesophageal reflux disease) Qualifiers: Esophagitis presence: esophagitis presence not specified Qualified Code(s): K21.9 - Gastro-esophageal reflux disease without esophagitis (9) Diabetes Qualifiers: Diabetes mellitus type: type 2 Diabetes mellitus mcc insulin use: without mcc use Diabetes mellitus complication status: with skin complications Diabetes mellitus complication detail: with other skin ulcer Qualified Code(s): E11.622 - Type 2 diabetes mellitus with other skin ulcer
[2019-02-14] MEDS ORDERED: *HR* Heparin 5,000 UNIT/ML VIAL IVP PRN ×2 (09:24)
[2019-02-14] MEDS ORDERED: *HR* Heparin 5,000 UNIT/ML VIAL IVP ONE (09:24)
[2019-02-14] MEDS ORDERED: Heparin 25,000 UNIT/250 ML D5W 25,000 UNIT/250 ML IV.SOLN IVC SCH (09:30)
[2019-02-14 10:50] LABS: Hematocrit 41.4 % (37.5-50.1); Hemoglobin 12.7 g/dL (12.9-16.9); Mean Corpuscular HGB Conc 30.7 g/dL (31.6-35.5); Mean Corpuscular Hemoglobin 26.5 pg (28.0-33.3); Mean Corpuscular Volume 86.3 fL (83.0-100.0); Mean Platelet Volume 10.4 fL (9.4-12.4); Platelet Count 291 K/mcL (140-400); Red Cell Distribution Width 16.5 % (11.5-14.5)
[2019-02-14 10:58] LABS: Prothrombin Time 11.6 Seconds (9.4-12.1)
[2019-02-14] MEDS ORDERED: Acetaminophen 325 MG TABLET PO PRN (11:37)
[2019-02-14] MEDS ORDERED: Ondansetron 4 MG/2 ML VIAL IVP PRN (11:39)
[2019-02-14] MEDS ORDERED: Tirofiban 12.5 MG/250ML 12.5 MG/250 ML BAG IVC SCH (11:45)
--- NOTE | 2019-02-14 16:41 | Cardiology Consult Note ---
Date of Encounter: 02/14/19 Time of Encounter: 11:38 Assessment and Plan (1) Elevated troponin Current Visit: Yes Status: Acute Likely secondary to sepsis. Troponin trending down at this time. Please treat sepsis with IV antibiotics. Continue to trend troponin, till peak. If not downtrending and /or patient develops chest pain, then start IV heparin and obtain an echocardiogram. (2) Diastolic CHF, chronic Current Visit: No Status: Chronic Diuresis as tolerated with IV Lasix. Strict inputs and outputs monitoring. Fluid restricted low-salt diet (3) Bilateral lower extremity edema Current Visit: No Status: Chronic Elevates lower extremity on pillows, consider wound care consultation Discussion w patient/family: The assessment and plan as outlined above was discussed with the patient and/or family members who expressed understanding and agreement. All questions were answered. Thank you for involving us in the care of your patient. Please call with any questions. History of Present Illness Consult date: 02/14/19 History of present illness: Mr. Leone is a 49 year old male 49 year old male with history of asthma, CHF, non obstructive CAD, CVA, DM, GERD, hyperlipidemia, hypertension, migraines, hypothyroidism, spina bifida with neurogenic bladder status post nephrostomy tubes, bilateral chronic lymphedema, pituitary tumor, admitted for sepsis secondary to lower extremity cellulitis and infection of urinary tract. He never had chest pain, shortness of breath or palpitations. However troponins worse elevated. It has been chronically elevated above 1.4 since January 2018. Patient adamantly denies chest pain. At any rate, troponin started trending down since antibiotics were started. LHC 01/19 showed a 20% stenosis in the LMCA and a 40% stenosis in the Distal LAD. This lesion is further described as diffusely diseased. Echo in 04/18 LVEF 60- 65%. Past Med Surg Social Fam HX - Past Medical History Medical history: asthma, cancer, CHF, CVA, diabetes, GERD, hyperlipidemia, hypertension, malignancy, migraine, myocardial infarction, thyroid disease, TIA Additional medical history: bladder cancer Psychiatric history: depression - Past Surgical History Surgical History: appendectomy, orthopedic, other, vasectomy, other Additional surgical history: cystectomy. urostomy - Social History Smoking Status: Never smoker Smokeless Tobacco Status: No Alcohol use: occasionally Drug use: none - Family History Mother Name: Smita Degroot Family Member Ethnicity: Non- Living Status: Still Living Hx Family Cardiac Disorders: Yes (HTN) Hx Family Cancer: Yes Hx Family Endocrine Disorder: Yes (DM) Hx Family Neurologic Disorders: Yes (Dementia) Sister History Unknown: Yes Family Member Ethnicity: Non- Living Status: Still Living Hx Family Cardiac Disorders: No Hx Family Respiratory Disorders: Yes Hx Family Cancer: No Hx Family GI Disorders: Yes Hx Family Endocrine Disorder: Yes Hx Family Neuromuscular Disorders: Yes Hx Family Neurologic Disorders: Yes Brother History Unknown: Yes Family Member Ethnicity: Non- Living Status: Still Living Hx Family Cardiac Disorders: Yes (HTN) Father Name: Chuck Leone Family Member Ethnicity: Non- Living Status: Age at : 65 Cause of : heart attack Hx Family Cardiac Disorders: Yes (CHF, HTN) Hx Family Respiratory Disorders: Yes (Asthma, emphysema) Hx Family Cancer: Yes (Lung) Hx Family GI Disorders: No Hx Family Endocrine Disorder: Yes Hx Family Neuromuscular Disorders: No Hx Family Neurologic Disorders: No Hx Family HEENT Disorders: No Hx Family Autoimmune Disorders: No Medications and Allergies Levothyroxine [Synthroid] 200 mcg PO DAILY 11/12/16 [History] Loratadine [Claritin] 10 mg PO DAILY 03/08/17 [History] Multivitamin [One Daily Multivitamin] 1 tab PO DAILY 03/08/17 [History] Omeprazole [PriLOSEC] 20 mg PO DAILY 08/25/17 [History] Atorvastatin [Lipitor] 40 mg PO HS 11/14/17 [History] Aspirin 81 mg PO DAILY #30 tab.chew 01/17/18 [Rx] Bumetanide 2 mg PO HS 04/24/18 [History] Cholecalciferol (Vitamin D3) [Vitamin D3] 5,000 unit PO DAILY 01/16/19 [History] Enalapril Maleate [Vasotec] 10 mg PO DAILY 01/16/19 [History] Famotidine [Pepcid] 20 mg PO BID 01/16/19 [History] Ferrous Sulfate 325 mg PO BID 01/16/19 [History] Fluticasone Propionate Nasal [Flonase] 1 spray NS DAILY 01/16/19 [History] Fluticasone Propionate [Flovent Hfa] 1 puff IH DAILY 01/16/19 [History] GuaiFENesin/Dextromethorphan [Robitussin Cough-Chest Dm Liq] 10 ml PO Q6H PRN 01/16/19 [History] Nystatin 1 appl TP QID 01/16/19 [History] Potassium Chloride [K-Tab ER] 20 meq PO TID 01/16/19 [History] Doxycycline 100 mg PO BID #18 capsule 01/18/19 [Rx] Allergy/AdvReac Type Severity Reaction Status Date / Time adhesive Allergy Blister Verified 07/07/18 21:04 Amoxicillin Allergy Hives Verified 07/07/18 21:04 Oxaprozin [From Daypro] AdvReac Diarrhea Verified 07/07/18 21:04 All Systems Review: The remainder of the systems were reviewed and are negative - Constitutional Constitutional: fever(s), malaise - EENT Nose, mouth and throat: no bleeding gums - Cardiovascular Cardiovascular: no chest pain at rest, no chest pain with exertion, no irregular heart rhythm, no orthopnea, no palpitations, no paroxysmal nocturnal dyspnea - Respiratory Respiratory: no cough, no wheezing - Gastrointestinal Gastrointestinal: no dysphagia - Musculoskeletal Musculoskeletal: no arthralgias - Integumentary Integumentary: no unusual bruising - Neurological Neurological: no abnormal speech - Psychiatric Psychiatric: no anxiety - Hematological/Lymphatic Hematologic/Lymphatic: no easy bleeding Physical Examination Vital Signs, Last 4 Hours Temp Pulse Resp BP 02/14/19 14:40 98.1 F 81 16 119/72 General: Conversant HEENT: Atraumatic Neck: No JVD Cardiac: Reg Rate and Rhythm, Normal S1 and S2 Lungs: Normal Breath Sounds, No Wheeze, Rales, Rhonchi Neuro: Alert and responsive Abdomen: Soft, Other (Nephrostomy tube with a bag in situ) Musculoskeletal: No Chest Wall Tenderness Extremities: Other (Erythematous rashes on lower extremities especially right) Results 02/14/19 10:17 02/14/19 06:58 Lab Results 02/13/19 02/13/19 02/13/19 18:31 18:31 23:07 WBC 9.7 Hgb 13.8 Hct 46.3 Plt Count 262 INR Sodium 139 Potassium 3.7 Chloride 105 Carbon Dioxide 24 BUN 16 Creatinine 1.04 Glucose 100 Calcium 9.7 Total Bilirubin 0.5 AST 17 ALT 12 Alkaline Phosphatase 91 Troponin I 1.70 H* 1.65 H* B-Natriuretic Peptide 02/14/19 02/14/19 02/14/19 06:58 06:58 06:58 WBC 7.5 Hgb 12.1 L D Hct 39.7 Plt Count 280 INR Sodium 138 Potassium 4.0 Chloride 105 Carbon Dioxide 22 L BUN 14 Creatinine 0.83 Glucose 112 H Calcium 9.3 Total Bilirubin AST ALT Alkaline Phosphatase Troponin I B-Natriuretic Peptide 18 02/14/19 02/14/19 02/14/19 06:58 10:17 10:17 WBC 7.8 Hgb 12.7 L Hct 41.4 Plt Count 291 INR 1.0 Sodium Potassium Chloride Carbon Dioxide BUN Creatinine Glucose Calcium Total Bilirubin AST ALT Alkaline Phosphatase Troponin I 1.85 H* B-Natriuretic Peptide Consult Discharge Plan - Plan Referrals: Maria Elena An MD [Primary Care Provider] -
[2019-02-14] MEDS: Famotidine 20 MG TABLET PO SCH (17:09)
[2019-02-14] MEDS ORDERED: *HR* Ticagrelor 90 MG TABLET PO SCH (21:00)
[2019-02-14] MEDS: Bumetanide 1 MG TABLET PO SCH (21:52)
[2019-02-15 01:46] LABS: Basophils # 0.1 K/mcL (0.0-0.2); Eosinophils # 0.4 K/mcL (0.0-0.6); Eosinophils % 5.8 %; Hematocrit 37.5 % (37.5-50.1); Hemoglobin 11.6 g/dL (12.9-16.9); Immature Granulocytes % 0.3 % (0-4); Lymphocytes # 1.8 K/mcL (0.6-4.6); Lymphocytes % 23.8 %; Mean Corpuscular HGB Conc 30.9 g/dL (31.6-35.5); Mean Corpuscular Hemoglobin 26.1 pg (28.0-33.3); Mean Corpuscular Volume 84.5 fL (83.0-100.0); Mean Platelet Volume 10.3 fL (9.4-12.4); Monocytes # 0.5 K/mcL (0.0-1.3); Monocytes % 6.4 %; Neutrophils # 4.8 K/mcL (1.6-8.9); Platelet Count 318 K/mcL (140-400); Red Blood Count 4.44 M/mcL (4.19-5.50); Red Cell Distribution Width 16.5 % (11.5-14.5); Segmented Neutrophils % 62.7 %
[2019-02-15 02:06] LABS: BUN/Creatinine Ratio 12 (6-26); Blood Urea Nitrogen 11 mg/dL (6-20); Calcium 9.2 mg/dL (8.6-10.3); Carbon Dioxide 23 mEq/L (23-29); Chloride 103 mEq/L (98-107); Glucose 106 mg/dL (70-105); Osmolality,Calculated 282 (280-300); Potassium 3.5 mEq/L (3.5-5.1); Sodium 136 mEq/L (136-145); eGFR For Non-African Americans > 60 (> 60)
[2019-02-15] MEDS: Famotidine 20 MG TABLET PO SCH ×2 (05:36→17:41)
[2019-02-15] MEDS: *HR* Heparin 5,000 UNIT/ML VIAL SQ SCH ×2 (05:52→17:42)
[2019-02-15 06:33] LABS: Estimated Average Glucose 120 mg/dl; Hemoglobin A1C 5.8 %
[2019-02-15] MEDS: Aspirin 81 MG TAB.CHEW PO SCH (08:59)
[2019-02-15] MEDS: Lisinopril 20 MG TABLET PO SCH (08:59)
[2019-02-15] MEDS: Insulin LISPRO 300 UNITS/3 ML VIAL SQ SCH ×4 (09:01→22:03)
--- NOTE | 2019-02-15 10:10 | Event Note ---
Date of Encounter: 02/15/19 Time of Encounter: 10:10 - Cardiology Event Note Laboratory Tests 02/13/19 02/13/19 02/14/19 18:31 23:07 06:58 Troponin I 1.70 H* 1.65 H* 1.85 H* 02/15/19 08:58 Troponin I 1.59 H* Discussed with Dr. Flower, will sign off, trop downward trending. CP free. Continue medical management. Cardiology signing off, re-consult PRN.
--- NOTE | 2019-02-15 10:11 | Internal Med Progress Note ---
<Kareem Espinal - Last Filed: 02/15/19 12:01> Hospitalist Progress Note - Encounter Date of Encounter: 02/15/19 Time of Encounter: 12:01 - Subjective Interval History: Patient was seen and examined up at since morning. He states that overall he is doing well with no complaints at this time. He states his breathing and his swelling appears to be getting better. Itching in his legs is also better. Denies any symptoms of nausea, vomiting, fevers, chills, urinary symptoms. - Exam Vitals: Temp Pulse Resp BP Pulse Ox 97.5 F L 82 14 127/81 98 02/15/19 06:34 02/15/19 06:34 02/15/19 06:34 02/15/19 06:34 02/15/19 06:34 Exam: Gen.: Vitals noted. No acute distress. Alert and oriented, responds to questions appropriately, resting comfortably in bed. Mildly unkempt HEENT: PERRL/EOMI, oropharynx clear, Normocephalic, atraumatic, MMM Cardiac: RRR, no murmur, +S1/S2, 3+ BLE edema Pulmonary: CTA bilaterally, no wheezes, rales or rhonchi, diminished in bases. equal chest expansion, unlabored breathing Abdomen: soft, nontender, BS noted, no guarding, no palpable HSM. Ostomy bag in place without evidence of surrounding infection. Skin: warm and dry, multiple lesions in bilateral lower extremities are representing possible insect bites MSK: ROM not assessed. Moves all extremities, no joint swelling noted, gait no assessed while in bed. Non tender calf or clubbing Neuro: A&O, moves all extremities, no focal deficits, sensation intact Psych: Appropriate mood and behavior - Assessment and Plan (1) Lymphedema of both lower extremities Current Visit: Yes Status: Chronic Assessment and Plan: - Suspect this is acute on chronic - Etiology is likely related to known history of lymphedema and less likely congestive heart failure - Kidney function and hepatic function within normal limits - No signs of additional fluid overload including no JVD, no shortness of breath, lungs clear to auscultation - Patient also reports possible bug bite some on bilateral lower extremities which may be contributing to swelling - We will advise symptomatic control this time - Patient reports poor home care and weakness. He will be evaluated by PT/OT and social work consult for further discharge needs (2) UTI (urinary tract infection) Current Visit: Yes Status: Suspected Assessment and Plan: - Suspect that this is related to colonization rather than acute infection - Patient is asymptomatic - Patient has a known urostomy with multiple multidrug resistant organisms in the past - Will not give antibiotics at this time and await culture results - Urine cultures no growth so far (3) Essential hypertension Current Visit: Yes Status: Chronic Assessment and Plan: Currently well-controlled at 128/81 We will continue home medications (4) Hyperlipidemia Current Visit: Yes Status: Chronic Assessment and Plan: Continue home statin (5) History of urostomy Current Visit: Yes Status: Chronic Assessment and Plan: Secondary to neurogenic bladder and spina bifida As above for UTI wound care consult placed (6) Morbid obesity with BMI of 40.0-44.9, adult Current Visit: Yes Status: Chronic Assessment and Plan: Advise outpatient lifestyle modifications (7) GERD (gastroesophageal reflux disease) Current Visit: Yes Status: Chronic Assessment and Plan: Reports reasonable control Passed therapy evaluation yesterday Continue home medications (8) Diabetes Current Visit: Yes Status: Chronic Assessment and Plan: Known history of diabetes with well-controlled glucose at this time with most recent blood sugar 111 Most recent hemoglobin A1c of 5.8% on 02/15/19 Continue low dose sliding scale insulin (9) Congestive heart failure Current Visit: Yes Status: Chronic Assessment and Plan: Known history of diastolic heart failure, most recent echocardiogram in April 2018 shows ejection fraction of 60% Does not appear to be acute exacerbation Tolerating room air (10) NSTEMI (non-ST elevated myocardial infarction) Current Visit: Yes Status: Suspected Assessment and Plan: - Suspect that this may be related type 2 NSTEMI - Troponin elevated at 1.70 on admission, trended to 1.65/1.85/ 1.59 most recently - Cardiology consulted in ED, appreciate recommendations - Per cardiology note, this is likely demand ischemia and no further cardiac evaluation warranted. Heparin drip stopped - Previous cardiac workup including echocardiogram 04/18 shows EF 60%, LHC 01/19 shows mild 2 vessel CAD - No complaints of chest pain Plan - Continue home CAD medications of asa, statin, imrtha - Further recommendations per cardiology (11) Elevated troponin Current Visit: Yes Status: Acute Assessment and Plan: As above (12) DVT prophylaxis Current Visit: Yes Status: Acute Assessment and Plan: Subcutaneous heparin (13) Skin lesion of left lower extremity Current Visit: Yes Status: Acute Assessment and Plan: As above - Time Spent with Patient Total time spent is greater than 50% in coordination of care (as documented) at patient's floor/unit and/or counseling patient: Internal Medicine: Result - Labs CBC & Chem 7: 02/15/19 01:03 02/15/19 01:03 Labs: Short CBC 02/14/19 02/15/19 Range/Units 10:17 01:03 WBC 7.8 7.7 (4.3-11.1) K/mcL Hgb 12.7 L 11.6 L (12.9-16.9) g/dL Hct 41.4 37.5 (37.5-50.1) % Plt Count 291 318 (140-400) K/mcL Neutrophils # 4.8 (1.6-8.9) K/mcL BMP 02/15/19 01:03 Sodium 136 Potassium 3.5 Chloride 103 Carbon Dioxide 23 BUN 11 Creatinine 0.92 Glucose 106 H Calcium 9.2 Cardiac Enzymes 02/15/19 Range/Units 08:58 Troponin I 1.59 H* (< 0.04) ng/mL - ABG Interpretation ABG results: PT/INR, D-dimer PT 11.6 Seconds (9.4-12.1) 02/14/19 10:17 Consult Discharge Plan - Plan Referrals: Maria Elena An MD [Primary Care Provider] - <Baldev Shirley - Last Filed: 02/15/19 15:57> Hospitalist Progress Note - Encounter Date of Encounter: 02/15/19 - Exam Vitals: Temp Pulse Resp BP Pulse Ox 97.5 F L 82 16 127/81 98 02/15/19 06:34 02/15/19 06:34 02/15/19 10:16 02/15/19 06:34 02/15/19 10:16 - Assessment and Plan (1) UTI (urinary tract infection) Current Visit: Yes Status: Suspected (2) Essential hypertension Current Visit: Yes Status: Chronic (3) Hyperlipidemia Current Visit: Yes Status: Chronic (4) History of urostomy Current Visit: Yes Status: Chronic (5) DVT prophylaxis Current Visit: Yes Status: Acute (6) Morbid obesity with BMI of 40.0-44.9, adult Current Visit: Yes Status: Chronic (7) GERD (gastroesophageal reflux disease) Current Visit: Yes Status: Chronic (8) Diabetes Current Visit: Yes Status: Chronic (9) Congestive heart failure Current Visit: Yes Status: Chronic (10) NSTEMI (non-ST elevated myocardial infarction) Current Visit: Yes Status: Suspected (11) Elevated troponin Current Visit: Yes Status: Acute (12) Lymphedema of both lower extremities Current Visit: Yes Status: Chronic (13) Skin lesion of left lower extremity Current Visit: Yes Status: Acute - Time Spent with Patient Total time spent is greater than 50% in coordination of care (as documented) at patient's floor/unit and/or counseling patient: Internal Medicine: Result - Labs CBC & Chem 7: 02/15/19 01:03 02/15/19 01:03 Labs: Short CBC 02/15/19 Range/Units 01:03 WBC 7.7 (4.3-11.1) K/mcL Hgb 11.6 L (12.9-16.9) g/dL Hct 37.5 (37.5-50.1) % Plt Count 318 (140-400) K/mcL Neutrophils # 4.8 (1.6-8.9) K/mcL BMP 02/15/19 01:03 Sodium 136 Potassium 3.5 Chloride 103 Carbon Dioxide 23 BUN 11 Creatinine 0.92 Glucose 106 H Calcium 9.2 Cardiac Enzymes 02/15/19 Range/Units 08:58 Troponin I 1.59 H* (< 0.04) ng/mL - ABG Interpretation ABG results: PT/INR, D-dimer PT 11.6 Seconds (9.4-12.1) 02/14/19 10:17 - Attending Attestation I examined this patient and my medical decision-making was reviewed with the Resident Physician on 02/15/19. I agree with the documented findings, disposition and treatment plan as described except to the extent set forth below. Mr Leone is currently admitted for bilateral LE lymphedema and presumed insect bites. He remains moderate to high risk due to potential for worsening clinical status. Mr Leone feels OK. Legs seem to be improving. No fever or chills. No abd pain. Exam Alert comfortable at rest Mucus membranes dry Heart reg and not tachy Lungs diminished Abd soft Legs with less edema and erythema. Wounds healing. I/P 1. Lower extremity lymphedema - slowly improving 2. Lower extremity wounds - improving 3. Spina bifida Further diagnoses and plan as above. <Kareem Espinal - Last Filed: 02/15/19 12:01> (2) UTI (urinary tract infection) Qualifiers: Urinary tract infection type: acute cystitis Hematuria presence: without hematuria Qualified Code(s): N30.00 - Acute cystitis without hematuria (4) Hyperlipidemia Qualifiers: Hyperlipidemia type: mixed hyperlipidemia Qualified Code(s): E78.2 - Mixed hyperlipidemia (7) GERD (gastroesophageal reflux disease) Qualifiers: Esophagitis presence: esophagitis presence not specified Qualified Code(s): K21.9 - Gastro-esophageal reflux disease without esophagitis (8) Diabetes Qualifiers: Diabetes mellitus type: type 2 Diabetes 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 Diabetes mellitus complication status: with skin complications Diabetes mellitus complication detail: with other skin ulcer Qualified Code(s): E11.622 - Type 2 diabetes mellitus with other skin ulcer <Baldev Shirley - Last Filed: 02/15/19 15:57> (1) UTI (urinary tract infection) Qualifiers: Urinary tract infection type: acute cystitis Hematuria presence: without hematuria Qualified Code(s): N30.00 - Acute cystitis without hematuria (3) Hyperlipidemia Qualifiers: Hyperlipidemia type: mixed hyperlipidemia Qualified Code(s): E78.2 - Mixed hyperlipidemia (7) GERD (gastroesophageal reflux disease) Qualifiers: Esophagitis presence: esophagitis presence not specified Qualified Code(s): K21.9 - Gastro-esophageal reflux disease without esophagitis (8) Diabetes Qualifiers: Diabetes mellitus type: type 2 Diabetes mellitus prison insulin use: without prison use Diabetes mellitus complication status: with skin complications Diabetes mellitus complication detail: with other skin ulcer Qualified Code(s): E11.622 - Type 2 diabetes mellitus with other skin ulcer
[2019-02-15] MEDS: MOMETASONE FUROATE 100 mcg Inhaler IH SCH ×2 (10:16→21:51)
[2019-02-15] MEDS: Bumetanide 1 MG TABLET PO SCH (20:33)
[2019-02-16 05:29] LABS: Basophils # 0.1 K/mcL (0.0-0.2); Basophils % 0.9 %; Eosinophils # 0.4 K/mcL (0.0-0.6); Eosinophils % 4.4 %; Immature Granulocytes % 0.3 % (0-4); Lymphocytes # 2.1 K/mcL (0.6-4.6); Lymphocytes % 23.3 %; Mean Corpuscular HGB Conc 30.8 g/dL (31.6-35.5); Mean Corpuscular Volume 84.4 fL (83.0-100.0); Mean Platelet Volume 10.5 fL (9.4-12.4); Monocytes # 0.7 K/mcL (0.0-1.3); Monocytes % 8.3 %; Neutrophils # 5.6 K/mcL (1.6-8.9); Platelet Count 346 K/mcL (140-400); Red Blood Count 4.62 M/mcL (4.19-5.50); Red Cell Distribution Width 16.5 % (11.5-14.5); Segmented Neutrophils % 62.8 %
[2019-02-16 05:47] LABS: BUN/Creatinine Ratio 18 (6-26); Blood Urea Nitrogen 20 mg/dL (6-20); Calcium 9.5 mg/dL (8.6-10.3); Carbon Dioxide 26 mEq/L (23-29); Chloride 103 mEq/L (98-107); Glucose 140 mg/dL (70-105); Osmolality,Calculated 287 (280-300); Sodium 136 mEq/L (136-145); eGFR For Non-African Americans > 60 (> 60)
[2019-02-16] MEDS: *HR* Heparin 5,000 UNIT/ML VIAL SQ SCH (06:24)
[2019-02-16] MEDS: Famotidine 20 MG TABLET PO SCH (06:24)
[2019-02-16 07:27] VITALS: BP 110/82
[2019-02-16] MEDS: Lisinopril 20 MG TABLET PO SCH (08:42)
[2019-02-16] MEDS: Aspirin 81 MG TAB.CHEW PO SCH (08:42)
[2019-02-16] MEDS: Insulin LISPRO 300 UNITS/3 ML VIAL SQ SCH ×2 (08:44→11:32)
[2019-02-16] MEDS: MOMETASONE FUROATE 100 mcg Inhaler IH SCH (09:50)
--- NOTE | 2019-02-16 10:41 | Discharge Summary ---
<NeelCassie N - Last Filed: 02/16/19 13:48> - NOTES TO OUTPATIENT PROVIDER Notes to Outpatient Provider: Follow up on patient's multiple comorbidities, his urinalysis is positive for UTI, however given clinical picture which was unremarkable for current infection and presence of urostomy suspect this is likely secondary to chronic colonization rather than acute infection. Patient presented with a chief complaint of skin lesions in his lower extremities and generalized weakness, there was concern for patient's ability to care for himself at home. Recommended PT and OT consultation to evaluate for possible need for placement or rehabilitation, patient adamantly declined PT and OT services in the hospital saying that he wishes to be discharged to home and refuses any rehabilitation or assisted living facility. Patient discharged home with home health services, follow-up outpatient for patient's weakness and home health needs. Orders not resulted at time of discharge: Pending orders 02/13/19 17:45 Culture,Urine [RM] Stat 02/14/19 11:38 ECG 12 lead ECG [ECG] Stat 02/15/19 06:00 ECG 12 lead ECG [ECG] AM 0600 Date of Encounter: 02/16/19 Time of Encounter: 10:41 - Discharge Diagnosis (1) Abnormal urinalysis Priority: Primary Status: Acute (2) Dysphagia Priority: Secondary Status: Acute Qualifiers: Dysphagia type: unspecified Qualified Code(s): R13.10 - Dysphagia, unspecified (3) Elevated troponin Priority: Primary Status: Acute (4) Skin lesion of left lower extremity Priority: Primary Status: Acute (5) Skin lesion of right lower extremity Priority: Primary Status: Acute (6) Weakness generalized Priority: Secondary Status: Acute (7) Diabetes Priority: Secondary Status: Chronic Qualifiers: Diabetes mellitus type: type 2 Diabetes mellitus penitentiary insulin use: without penitentiary use Diabetes mellitus complication status: with skin complications Diabetes mellitus complication detail: with other skin ulcer Qualified Code(s): E11.622 - Type 2 diabetes mellitus with other skin ulcer (8) Lymphedema of both lower extremities Priority: Primary Status: Chronic (9) Skin inflammation at urostomy site Priority: Secondary Status: Acute Hospital course: Mr. Leone is a 49 year old male with a pertinent past medical history of bladder cancer status post urostomy tube, spina bifida, and CHF who presented to the hospital for chief complaint of skin lesions to both lower extremities. Patient has a history of chronic lymphedema and does admit to some increased swelling in his lower legs. He also complains of skin irritation around his urostomy bag and generalized weakness. On presentation small punctate lesions were noted on the lower extremities bilaterally which appear to be secondary to increased swelling and subsequent skin damage. Upon presentation patient was found to have an elevated troponin. He has chronically elevated troponin since January 2018, he denied any chest pain or shortness of breath. His troponin trended down and cardiology consultation determine the further exploration was not indicated at this time. As for his lower extremity swelling it was believed to be secondary to lymphedema as opposed to CHF as patient had no signs of fluid overload including JVD, shortness of breath, or crackles on lung examination. His home dose Bumex was resumed and patient symptomatically improved. He also was suspected to have a UTI on presentation, however given patient's indwelling urostomy tube suspect this is secondary to colonization rather than acute infection, patient does not have any fevers or chills or any other signs of systemic infection, did not treat asymptomatic bacteriuria. Patient did report poor home care and generalized weakness for which PT and OT were consulted to evaluate for discharge needs and possible need for rehabilitation or assisted living facility. Patient adamantly declined PT and OT consultation stating that he "did not want to go to a shelter". Patient is awake alert and had adequate decision-making capacity. He states that he has family members at home they care for him and he has had prior bad experiences with assisted living facilities. - Time Spent with Patient Total time spent providing and/or coordinating discharge services: - Discharge Medications Prescriptions: Continue Levothyroxine [Synthroid] 200 mcg PO DAILY Loratadine [Claritin] 10 mg PO DAILY Multivitamin [One Daily Multivitamin] 1 tab PO DAILY Omeprazole [PriLOSEC] 20 mg PO DAILY Atorvastatin [Lipitor] 40 mg PO HS Aspirin 81 mg PO DAILY #30 tab.chew Bumetanide 2 mg PO HS Cholecalciferol (Vitamin D3) [Vitamin D3] 5,000 unit PO DAILY Enalapril Maleate [Vasotec] 10 mg PO DAILY Famotidine [Pepcid] 20 mg PO BID Ferrous Sulfate 325 mg PO DAILY Fluticasone Propionate [Flovent Hfa] 1 puff IH DAILY Fluticasone Propionate Nasal [Flonase] 1 spray NS DAILY GuaiFENesin/Dextromethorphan [Robitussin Cough-Chest Dm Liq] 10 ml PO Q6H PRN PRN Reason: Cough Nystatin 1 appl TP QID Potassium Chloride [K-Tab ER] 60 meq PO BID Home Medications: Levothyroxine [Synthroid] 200 mcg PO DAILY 11/12/16 [History] Loratadine [Claritin] 10 mg PO DAILY 03/08/17 [History] Multivitamin [One Daily Multivitamin] 1 tab PO DAILY 03/08/17 [History] Omeprazole [PriLOSEC] 20 mg PO DAILY 08/25/17 [History] Atorvastatin [Lipitor] 40 mg PO HS 11/14/17 [History] Aspirin 81 mg PO DAILY #30 tab.chew 01/17/18 [Rx] Bumetanide 2 mg PO HS 04/24/18 [History] Cholecalciferol (Vitamin D3) [Vitamin D3] 5,000 unit PO DAILY 01/16/19 [History] Enalapril Maleate [Vasotec] 10 mg PO DAILY 01/16/19 [History] Famotidine [Pepcid] 20 mg PO BID 01/16/19 [History] Ferrous Sulfate 325 mg PO DAILY 01/16/19 [History] Fluticasone Propionate Nasal [Flonase] 1 spray NS DAILY 01/16/19 [History] Fluticasone Propionate [Flovent Hfa] 1 puff IH DAILY 01/16/19 [History] GuaiFENesin/Dextromethorphan [Robitussin Cough-Chest Dm Liq] 10 ml PO Q6H PRN 01/16/19 [History] Nystatin 1 appl TP QID 01/16/19 [History] Potassium Chloride [K-Tab ER] 60 meq PO BID 01/16/19 [History] Allergies/Adverse Reactions: Allergy/AdvReac Type Severity Reaction Status Date / Time adhesive Allergy Blister Verified 07/07/18 21:04 Amoxicillin Allergy Hives Verified 07/07/18 21:04 Oxaprozin [From Daypro] AdvReac Diarrhea Verified 07/07/18 21:04 Date of admission: 02/13/19 21:05 Primary care physician: Maria Elena An Consults: 02/13/19 20:19 Consult to Cardiology [CONS] Stat Comment: Consulting Provider: Cardiology Yanet Reason for Consult: Elevated troponin Call Completed: Yes 02/13/19 22:16 Consult to Siding Coreboard Inspector [CONS] Routine Reason for SW Consult: Difficulty obtaining medical supplies, low risk Rhea Screening tool, Has Home health nurse and aides 02/13/19 22:56 Consult to Wound Care [CONS] Routine Reason for Consult: Urostomy care Call Completed: No Discharging clinician: Cassie Shaikh Anticipated date of discharge: 02/16/19 - Constitutional Vitals: Temp Pulse Resp BP Pulse Ox 97.7 F 88 18 110/82 98 02/16/19 07:17 02/16/19 07:17 02/16/19 07:17 02/16/19 07:17 02/16/19 03:43 Exam: Gen.: Vitals noted. No acute distress. Alert and oriented, responds to questions appropriately, resting comfortably in bed. Mildly unkempt HEENT: PERRL/EOMI, oropharynx clear, Normocephalic, atraumatic, MMM Cardiac: RRR, no murmur, +S1/S2, 3+ BLE edema Pulmonary: CTA bilaterally, no wheezes, rales or rhonchi, diminished in bases. equal chest expansion, unlabored breathing Abdomen: soft, nontender, BS noted, no guarding, no palpable HSM. Ostomy bag in place without evidence of surrounding infection. Skin: warm and dry, multiple lesions in bilateral lower extremities, small punctate lesions without surrounding erythema or edema present MSK: ROM not assessed. Moves all extremities, no joint swelling noted, gait no assessed while in bed. Non tender calf or clubbing Neuro: A&O, moves all extremities, no focal deficits, sensation intact Psych: Appropriate mood and behavior - Patient Status Disposition: Home Health Service Condition: Fair Functional capacity at discharge: uses cane/walker Overall status at discharge: patient is progressing back to baseline - Discharge Instructions Instructions: Urinary Tract Infection in Men (DC), Diabetes Mellitus Type 2 in Adults (DC), Anemia (GEN) Follow Up With: Maria Elena An MD [Primary Care Provider] - 02/25/19 1:45 pm - Diet and Activity Activity: as per physical therapy Diet: advance to your usual diet <Baldev Shirley - Last Filed: 02/16/19 18:26> Orders not resulted at time of discharge: Pending orders 02/13/19 17:45 Culture,Urine [RM] Stat 02/14/19 11:38 ECG 12 lead ECG [ECG] Stat 02/15/19 06:00 ECG 12 lead ECG [ECG] AM 0600 Date of Encounter: 02/16/19 - Discharge Diagnosis (1) UTI (urinary tract infection) Status: Ruled-out Qualifiers: Urinary tract infection type: acute cystitis Hematuria presence: without hematuria Qualified Code(s): N30.00 - Acute cystitis without hematuria (2) Essential hypertension Priority: Secondary Status: Chronic (3) Hyperlipidemia Priority: Secondary Status: Chronic Qualifiers: Hyperlipidemia type: mixed hyperlipidemia Qualified Code(s): E78.2 - Mixed hyperlipidemia (4) History of urostomy Priority: Secondary Status: Chronic (5) Morbid obesity with BMI of 40.0-44.9, adult Priority: Secondary Status: Chronic (6) GERD (gastroesophageal reflux disease) Priority: Secondary Status: Chronic Qualifiers: Esophagitis presence: esophagitis presence not specified Qualified Code(s): K21.9 - Gastro-esophageal reflux disease without esophagitis (7) Diabetes Status: Chronic Qualifiers: Diabetes mellitus type: type 2 Diabetes 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 Leone is a 49 year old male - Time Spent with Patient Total time spent providing and/or coordinating discharge services: Date of admission: 02/13/19 21:05 Primary care physician: Maria Elena An Consults: 02/13/19 20:19 Consult to Cardiology [CONS] Stat Comment: Consulting Provider: Cardiology Yanet Reason for Consult: Elevated troponin Call Completed: Yes 02/13/19 22:16 Consult to Siding Coreboard Inspector [CONS] Routine Reason for SW Consult: Difficulty obtaining medical supplies, low risk Rhea Screening tool, Has Home health nurse and aides 02/13/19 22:56 Consult to Wound Care [CONS] Routine Reason for Consult: Urostomy care Call Completed: No - Constitutional Vitals: Temp Pulse Resp BP Pulse Ox 97.7 F 88 15 110/82 98 02/16/19 07:17 02/16/19 07:17 02/16/19 09:50 02/16/19 07:17 02/16/19 09:50 - Attending Attestation I examined this patient and my medical decision-making was reviewed with the Resident Physician on 02/16/19. I agree with the documented findings, disposition and treatment plan as described except to the extent set forth below. Mr Leone has been admitted for bilateral lower extremities lesions -?bites. He had some chronic edema as well. He was evaluated and treated with topical meds. Urine was sent for culture but he had no signs of infection so no abx ordered (felt colonized). He tolerated well and is now afebrile. He is ready for discharge home. Exam Alert COmfortable Mucus membranes dry Heart not tachy No wheeze abd nontender Legs improving Plan D/C home today.
--- NOTE | 2019-02-16 10:41 | Physician Discharge Referral ---
Home Health/Hosp Referral Info Transfer to: Home Health Provider in Charge Post Discharge: PCP - Diagnosis (1) NSTEMI (non-ST elevated myocardial infarction) Priority: Primary Status: Acute (2) Morbid obesity Priority: Secondary Status: Acute (3) Hyperlipidemia Priority: Secondary Status: Chronic (4) History of urostomy Priority: Secondary Status: Chronic (5) GERD (gastroesophageal reflux disease) Priority: Secondary Status: Chronic (6) Diabetes Priority: Secondary Status: Chronic (7) Congestive heart failure Priority: Secondary Status: Chronic (8) Elevated troponin Priority: Primary Status: Acute (9) UTI (urinary tract infection) Priority: Secondary Status: Suspected (10) Lymphedema of both lower extremities Priority: Primary Status: Chronic - Respiratory Orders Smoking Cessation: Smoking cessation has been advised. For more information, call the [employer] Tobacco Quit Line at 0-291-WGYR-NOW. - Diet/Nutrition Diet/Nutrition Orders: Cardiac - Services Needed Following services are medically necessary services: Nursing, Home Health Aide, Physical Therapy, Occupational Therapy - Transfer Medications Home Medications: Levothyroxine [Synthroid] 200 mcg PO DAILY 11/12/16 [History] Loratadine [Claritin] 10 mg PO DAILY 03/08/17 [History] Multivitamin [One Daily Multivitamin] 1 tab PO DAILY 03/08/17 [History] Omeprazole [PriLOSEC] 20 mg PO DAILY 08/25/17 [History] Atorvastatin [Lipitor] 40 mg PO HS 11/14/17 [History] Aspirin 81 mg PO DAILY #30 tab.chew 01/17/18 [Rx] Bumetanide 2 mg PO HS 04/24/18 [History] Cholecalciferol (Vitamin D3) [Vitamin D3] 5,000 unit PO DAILY 01/16/19 [History] Enalapril Maleate [Vasotec] 10 mg PO DAILY 01/16/19 [History] Famotidine [Pepcid] 20 mg PO BID 01/16/19 [History] Ferrous Sulfate 325 mg PO DAILY 01/16/19 [History] Fluticasone Propionate Nasal [Flonase] 1 spray NS DAILY 01/16/19 [History] Fluticasone Propionate [Flovent Hfa] 1 puff IH DAILY 01/16/19 [History] GuaiFENesin/Dextromethorphan [Robitussin Cough-Chest Dm Liq] 10 ml PO Q6H PRN 01/16/19 [History] Nystatin 1 appl TP QID 01/16/19 [History] Potassium Chloride [K-Tab ER] 60 meq PO BID 01/16/19 [History] Allergies/Adverse Reactions: Allergy/AdvReac Type Severity Reaction Status Date / Time adhesive Allergy Blister Verified 07/07/18 21:04 Amoxicillin Allergy Hives Verified 07/07/18 21:04 Oxaprozin [From Daypro] AdvReac Diarrhea Verified 07/07/18 21:04 Certification: Further, I certify that my clinical findings support that this patient is homebound (i.e. absences from home require considerable and taxing effort and are for medical reasons or yarsanism services or infrequently or short duration when for other reasons) because: Homebound Reason: Leaving home requires considerable and taxing effort due to condition Attestation: My signature below is to certify that this patient is under my care and that I, or nurse practitioner, or a physician's oncology physician assistant working with me, has a [id number] encounter with this patient.
--- NOTE | 2019-02-20 07:19 | Electrocardiograph Report ---
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
--- NOTE | 2019-02-20 07:27 | Electrocardiograph Report ---
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
== END 2019-02-16 18:43 | disposition home health service (06) ==
LOC: 2NENU 16:22 → EMEROOARM 16:22 → SUATTDRO 21:05 → 2NENU 23:20
PROVIDERS: ADMIT Internal Medicine; ATTEND Internal Medicine

== ENCOUNTER 2019-10-19 13:09 | Inpatient (IN) ==
[2019-10-19] MEDS ORDERED: 0.9 % Sodium Chloride 500 ML IVC ONE ×2 (13:32→15:09)
[2019-10-19] MEDS ORDERED: Ipratropium/Albuterol Neb 3 ML IH ONE (13:34)
[2019-10-19 14:26] LABS: Bilirubin,Urine Negative (Negative); Blood,Urine Moderate (Negative); Clarity,Urine Cloudy (Clear); Color,Urine Yellow (Yellow); Glucose,Urine (UA) Normal (Normal); Ketones,Urine Negative (Negative); Leukocyte Esterase,Urine Large (Negative); Nitrite,Urine Positive (Negative); Protein,Urine 100 mg/dL (Neg-Trace); Specific Gravity,Urine 1.017 (1.010-1.025); Urobilinogen,Urine Normal (Normal)
[2019-10-19 14:28] LABS: Bacteria,Urine Moderate per hpf (None-Few); Squamous Epithelial Cell,Urine Moderate per lpf (None-Few); WBC,Urine TNTC per hpf (0-3)
[2019-10-19 14:45] LABS: Mucus,Urine Moderate (Few)
[2019-10-19 14:45] LABS: Basophils # 0.1 K/mcL (0.0-0.2); Basophils % 0.5 %; Eosinophils # 0.2 K/mcL (0.0-0.6); Eosinophils % 1.3 %; Hematocrit 40.2 % (37.5-50.1); Hemoglobin 12.3 g/dL (12.9-16.9); Immature Granulocytes % 0.2 % (0-4); Lymphocytes # 1.2 K/mcL (0.6-4.6); Mean Corpuscular HGB Conc 30.6 g/dL (31.6-35.5); Mean Platelet Volume 9.9 fL (9.4-12.4); Monocytes # 1.1 K/mcL (0.0-1.3); Monocytes % 8.7 %; Neutrophils # 9.8 K/mcL (1.6-8.9); Platelet Count 385 K/mcL (140-400); Red Blood Count 4.73 M/mcL (4.19-5.50); Red Cell Distribution Width 16.4 % (11.5-14.5); Segmented Neutrophils % 79.3 %; White Blood Count 12.4 K/mcL (4.3-11.1)
[2019-10-19 15:04] LABS: BUN/Creatinine Ratio 9 (6-26); Blood Urea Nitrogen 10 mg/dL (6-20); Calcium 9.2 mg/dL (8.6-10.3); Carbon Dioxide 27 mEq/L (23-29); Chloride 102 mEq/L (98-107); Glucose 113 mg/dL (70-105); Osmolality,Calculated 286 (280-300); Potassium 3.7 mEq/L (3.5-5.1); Sodium 138 mEq/L (136-145); eGFR For African Americans > 60 (> 60); eGFR For Non-African Americans > 60 (> 60)
[2019-10-19] MEDS ORDERED: Piperacillin/Tazobactam 3.375 GM in 0.9 % Sodium Chloride Mini Bag 100 ML IVPB ONE (15:09)
[2019-10-19] MEDS ORDERED: Azithromycin 500 MG in 0.9 % Sodium Chloride 250 ML IVPB ONE (16:06)
[2019-10-19] MEDS ORDERED: Meropenem 1,000 MG in 0.9 % Sodium Chloride Mini Bag 100 ML IVPB ONE (16:19)
[2019-10-19] MEDS ORDERED: Vancomycin 1,750 MG in 0.9 % Sodium Chloride 250 ML IVPB SCH (17:00)
[2019-10-19] MEDS ORDERED: Ondansetron 4 MG/2 ML VIAL IVP PRN (19:51)
[2019-10-19] MEDS ORDERED: Ondansetron ODT 4 MG TAB.RAPDIS SL PRN (19:51)
[2019-10-19] MEDS ORDERED: Naloxone 0.4 MG/ML INJ IVP PRN (19:51)
[2019-10-19] MEDS ORDERED: Isovue-370 500 ML BOTTLE IVP ONE (19:59)
[2019-10-19] MEDS ORDERED: Ringers Solution, Lactated 1,000 ML IVC ONE (20:09)
[2019-10-19] MEDS ORDERED: SODIUM CHLORIDE 0.9% IVPB SCH (20:30)
[2019-10-19] MEDS ORDERED: DAPTOMYCIN IVPB SCH (20:30)
[2019-10-20] MEDS: WATER FOR INJ IVP SCH ×2 (01:00→11:20)
[2019-10-20] MEDS: MEROPENEM IVP SCH ×2 (01:00→11:20)
[2019-10-20 05:17] LABS: Basophils # 0.1 K/mcL (0.0-0.2); Basophils % 0.6 %; Eosinophils # 0.3 K/mcL (0.0-0.6); Eosinophils % 2.9 %; Hematocrit 37.6 % (37.5-50.1); Hemoglobin 11.8 g/dL (12.9-16.9); Immature Granulocytes % 0.3 % (0-4); Lymphocytes # 1.2 K/mcL (0.6-4.6); Lymphocytes % 12.9 %; Mean Corpuscular HGB Conc 31.4 g/dL (31.6-35.5); Mean Corpuscular Hemoglobin 25.8 pg (28.0-33.3); Mean Corpuscular Volume 82.3 fL (83.0-100.0); Mean Platelet Volume 10.7 fL (9.4-12.4); Monocytes # 0.8 K/mcL (0.0-1.3); Monocytes % 9.3 %; Neutrophils # 6.6 K/mcL (1.6-8.9); Platelet Count 330 K/mcL (140-400); Red Blood Count 4.57 M/mcL (4.19-5.50); Red Cell Distribution Width 16.8 % (11.5-14.5); White Blood Count 8.9 K/mcL (4.3-11.1)
[2019-10-20 05:36] LABS: BUN/Creatinine Ratio 10 (6-26); Blood Urea Nitrogen 8 mg/dL (6-20); Calcium 8.8 mg/dL (8.6-10.3); Carbon Dioxide 23 mEq/L (23-29); Chloride 105 mEq/L (98-107); Glucose 102 mg/dL (70-105); Osmolality,Calculated 283 (280-300); Potassium 3.5 mEq/L (3.5-5.1); Sodium 137 mEq/L (136-145); eGFR For African Americans > 60 (> 60); eGFR For Non-African Americans > 60 (> 60)
[2019-10-20 13:23] LABS: Adenovirus Not Detected (Not Detect); Bordetella Pertussis Not Detected (Not Detect); Chlamydophila pneumoniae Not Detected (Not Detect); Coronavirus 229E Not Detected (Not Detect); Coronavirus HKU1 Not Detected (Not Detect); Coronavirus NL63 Not Detected (Not Detect); Coronavirus OC43 Not Detected (Not Detect); Human Metapneumovirus Not Detected (Not Detect); Human Rhinovirus/Enterovirus Not Detected (Not Detect); Influenza A Subtype 2009 H1 Not Detected (Not Detect); Influenza A Untypeable Not Detected (Not Detect); Influenza B Not Detected (Not Detect); Mycoplasma pneumoniae Not Detected (Not Detect); Parainfluenza Virus 1 Not Detected (Not Detect); Parainfluenza Virus 2 Not Detected (Not Detect); Parainfluenza Virus 3 Not Detected (Not Detect); Parainfluenza Virus 4 Not Detected (Not Detect); Respiratory Syncytial Virus Not Detected (Not Detect)
[2019-10-20] MEDS: Piperacillin/Tazobactam 3.375 GM in 0.9 % Sodium Chloride Mini Bag 100 ML IVPB SCH (17:56)
[2019-10-21] MEDS: Piperacillin/Tazobactam 3.375 GM in 0.9 % Sodium Chloride Mini Bag 100 ML IVPB SCH ×3 (00:48→15:06)
[2019-10-21 05:26] LABS: Hematocrit 34.4 % (37.5-50.1); Hemoglobin 10.9 g/dL (12.9-16.9); Mean Corpuscular HGB Conc 31.7 g/dL (31.6-35.5); Mean Corpuscular Hemoglobin 26.3 pg (28.0-33.3); Mean Corpuscular Volume 82.9 fL (83.0-100.0); Platelet Count 329 K/mcL (140-400); Red Blood Count 4.15 M/mcL (4.19-5.50); Red Cell Distribution Width 16.4 % (11.5-14.5); White Blood Count 8.2 K/mcL (4.3-11.1)
[2019-10-21] MEDS: *HR* Enoxaparin 40 MG/0.4 ML SYRINGE SQ SCH (05:43)
[2019-10-21 05:48] LABS: BUN/Creatinine Ratio 15 (6-26); Blood Urea Nitrogen 16 mg/dL (6-20); Calcium 8.8 mg/dL (8.6-10.3); Carbon Dioxide 23 mEq/L (23-29); Chloride 107 mEq/L (98-107); Glucose 137 mg/dL (70-105); Osmolality,Calculated 291 (280-300); Potassium 3.6 mEq/L (3.5-5.1); Sodium 139 mEq/L (136-145); eGFR For African Americans > 60 (> 60); eGFR For Non-African Americans > 60 (> 60)
[2019-10-21] MEDS: Linezolid 600 MG TABLET PO SCH (22:31)
[2019-10-22] MEDS: Piperacillin/Tazobactam 3.375 GM in 0.9 % Sodium Chloride Mini Bag 100 ML IVPB SCH ×3 (00:09→16:00)
[2019-10-22] MEDS: *HR* Enoxaparin 40 MG/0.4 ML SYRINGE SQ SCH (05:57)
[2019-10-22 06:17] LABS: Hematocrit 36.2 % (37.5-50.1); Hemoglobin 11.3 g/dL (12.9-16.9); Mean Corpuscular HGB Conc 31.2 g/dL (31.6-35.5); Mean Corpuscular Hemoglobin 25.6 pg (28.0-33.3); Mean Corpuscular Volume 81.9 fL (83.0-100.0); Mean Platelet Volume 10.7 fL (9.4-12.4); Platelet Count 335 K/mcL (140-400); Red Blood Count 4.42 M/mcL (4.19-5.50); Red Cell Distribution Width 16.2 % (11.5-14.5); White Blood Count 7.4 K/mcL (4.3-11.1)
[2019-10-22 06:51] LABS: BUN/Creatinine Ratio 17 (6-26); Blood Urea Nitrogen 15 mg/dL (6-20); Carbon Dioxide 23 mEq/L (23-29); Chloride 102 mEq/L (98-107); Glucose 109 mg/dL (70-105); Osmolality,Calculated 285 (280-300); Potassium 4.1 mEq/L (3.5-5.1); Sodium 137 mEq/L (136-145); eGFR For African Americans > 60 (> 60); eGFR For Non-African Americans > 60 (> 60)
[2019-10-22] MEDS: Linezolid 600 MG TABLET PO SCH ×2 (07:56→21:11)
[2019-10-23] MEDS: Piperacillin/Tazobactam 3.375 GM in 0.9 % Sodium Chloride Mini Bag 100 ML IVPB SCH ×3 (00:39→15:44)
[2019-10-23 05:40] LABS: Hematocrit 38.7 % (37.5-50.1); Mean Corpuscular Hemoglobin 26.2 pg (28.0-33.3); Mean Corpuscular Volume 84.5 fL (83.0-100.0); Mean Platelet Volume 11.5 fL (9.4-12.4); Platelet Count 275 K/mcL (140-400); Red Blood Count 4.58 M/mcL (4.19-5.50); White Blood Count 7.9 K/mcL (4.3-11.1)
[2019-10-23] MEDS: *HR* Enoxaparin 40 MG/0.4 ML SYRINGE SQ SCH (05:40)
[2019-10-23 06:02] LABS: BUN/Creatinine Ratio 18 (6-26); Blood Urea Nitrogen 17 mg/dL (6-20); Calcium 9.5 mg/dL (8.6-10.3); Carbon Dioxide 22 mEq/L (23-29); Chloride 102 mEq/L (98-107); Glucose 119 mg/dL (70-105); Osmolality,Calculated 285 (280-300); Potassium 4.3 mEq/L (3.5-5.1); Sodium 136 mEq/L (136-145); eGFR For African Americans > 60 (> 60); eGFR For Non-African Americans > 60 (> 60)
[2019-10-23] MEDS: Lisinopril 20 MG TABLET PO SCH (08:09)
[2019-10-23] MEDS: Bumetanide 1 MG TABLET PO SCH (08:10)
[2019-10-23] MEDS: Aspirin 81 MG TAB.CHEW PO SCH (08:10)
[2019-10-23] MEDS: Linezolid 600 MG TABLET PO SCH ×2 (08:10→20:35)
[2019-10-24] MEDS: Piperacillin/Tazobactam 3.375 GM in 0.9 % Sodium Chloride Mini Bag 100 ML IVPB SCH ×2 (00:13→08:44)
[2019-10-24] MEDS: *HR* Enoxaparin 40 MG/0.4 ML SYRINGE SQ SCH (05:53)
[2019-10-24 08:15] VITALS: BP 108/76
[2019-10-24 09:07] LABS: BUN/Creatinine Ratio 22 (6-26); Blood Urea Nitrogen 22 mg/dL (6-20); Calcium 9.2 mg/dL (8.6-10.3); Carbon Dioxide 24 mEq/L (23-29); Chloride 103 mEq/L (98-107); Glucose 102 mg/dL (70-105); Osmolality,Calculated 284 (280-300); Potassium 4.2 mEq/L (3.5-5.1); Sodium 135 mEq/L (136-145); eGFR For African Americans > 60 (> 60); eGFR For Non-African Americans > 60 (> 60)
[2019-10-24] MEDS: Lisinopril 20 MG TABLET PO SCH (09:51)
[2019-10-24] MEDS: Bumetanide 1 MG TABLET PO SCH (09:51)
[2019-10-24] MEDS: Aspirin 81 MG TAB.CHEW PO SCH (09:52)
[2019-10-24] MEDS: Linezolid 600 MG TABLET PO SCH (09:52)
[2019-10-24 11:38] LABS: Hematocrit 41.6 % (37.5-50.1); Hemoglobin 13.1 g/dL (12.9-16.9); Mean Corpuscular HGB Conc 31.5 g/dL (31.6-35.5); Mean Corpuscular Hemoglobin 25.9 pg (28.0-33.3); Mean Corpuscular Volume 82.2 fL (83.0-100.0); Platelet Count 413 K/mcL (140-400); Red Blood Count 5.06 M/mcL (4.19-5.50); Red Cell Distribution Width 16.4 % (11.5-14.5); White Blood Count 8.8 K/mcL (4.3-11.1)
== END 2019-10-24 12:57 | disposition home health service (06) | DRG 871 ==
LOC: 3ANU 13:09 → EMEROOARM 13:09 → SUATTDRO 17:40 → 3ANU 18:45
PROVIDERS: ADMIT Internal Medicine; ATTEND Internal Medicine

== ENCOUNTER 2019-11-06 17:06 | Inpatient (IN) ==
[2019-11-06 18:08] LABS: Basophils # 0.1 K/mcL (0.0-0.2); Basophils % 0.6 %; Eosinophils % 0.1 %; Hematocrit 38.1 % (37.5-50.1); Hemoglobin 11.5 g/dL (12.9-16.9); Immature Granulocytes % 0.4 % (0-4); Lymphocytes # 0.8 K/mcL (0.6-4.6); Mean Corpuscular HGB Conc 30.2 g/dL (31.6-35.5); Mean Platelet Volume 10.2 fL (9.4-12.4); Monocytes # 0.8 K/mcL (0.0-1.3); Monocytes % 9.8 %; Neutrophils # 6.6 K/mcL (1.6-8.9); Platelet Count 318 K/mcL (140-400); Red Blood Count 4.43 M/mcL (4.19-5.50); Red Cell Distribution Width 17.7 % (11.5-14.5); Segmented Neutrophils % 79.1 %; White Blood Count 8.3 K/mcL (4.3-11.1)
[2019-11-06 18:38] LABS: Alanine Aminotransferase 11 Units/L (7-52); Albumin 3.8 g/dL (3.5-5.7); Alkaline Phosphatase 82 Units/L (34-104); Aspartate Amino Transferase 16 Units/L (13-39); BUN/Creatinine Ratio 11 (6-26); Bilirubin,Total 0.5 mg/dL (0.3-1.0); Blood Urea Nitrogen 11 mg/dL (6-20); Calcium 8.9 mg/dL (8.6-10.3); Carbon Dioxide 22 mEq/L (23-29); Chloride 102 mEq/L (98-107); Glucose 136 mg/dL (70-105); Osmolality,Calculated 283 (280-300); Potassium 3.7 mEq/L (3.5-5.1); Sodium 136 mEq/L (136-145); Total Protein 7.8 g/dL (6.4-8.9); Troponin I 1.25 ng/mL (< 0.04); eGFR For African Americans > 60 (> 60); eGFR For Non-African Americans > 60 (> 60)
[2019-11-06] MEDS ORDERED: 0.9 % Sodium Chloride 1,000 ML IVC ONE (19:03)
[2019-11-06 20:00] LABS: Bilirubin,Urine Negative (Negative); Blood,Urine Moderate (Negative); Clarity,Urine Cloudy (Clear); Color,Urine Yellow (Yellow); Glucose,Urine (UA) Normal (Normal); Ketones,Urine Negative (Negative); Leukocyte Esterase,Urine Moderate (Negative); Nitrite,Urine Positive (Negative); Protein,Urine 30 mg/dL (Neg-Trace); Specific Gravity,Urine 1.019 (1.010-1.025); Urobilinogen,Urine Normal (Normal)
[2019-11-06 20:04] LABS: Bacteria,Urine Many per hpf (None-Few); RBC,Urine 15-30 per hpf (0-3); Squamous Epithelial Cell,Urine Moderate per lpf (None-Few); WBC,Urine TNTC per hpf (0-3)
[2019-11-06 20:16] LABS: Hyaline Casts,Urine None Seen per lpf (None-Few); Mucus,Urine Few (Few)
[2019-11-06 20:28] LABS: C-Reactive Protein 170 mg/L (Less than 10)
[2019-11-07] MEDS ORDERED: Ondansetron 4 MG/2 ML VIAL IVP PRN (00:26)
[2019-11-07] MEDS ORDERED: Acetaminophen 325 MG TABLET PO PRN (00:26)
[2019-11-07] MEDS ORDERED: Ringers Solution, Lactated 1,000 ML IVC SCH (00:30)
[2019-11-07] MEDS: Piperacillin/Tazobactam 3.375 GM in 0.9 % Sodium Chloride Mini Bag 100 ML IVPB SCH ×3 (01:49→16:06)
[2019-11-07] MEDS: *HR* Heparin 5,000 UNIT/ML VIAL SQ SCH ×3 (05:32→21:34)
[2019-11-07] MEDS ORDERED: Meropenem 1,000 MG in Water for inj. (sterile) 20 ML IVP SCH (06:00)
[2019-11-07] MEDS: Linezolid 600 MG TABLET PO SCH ×2 (08:34→21:34)
[2019-11-07] MEDS ORDERED: Levalbuterol Neb 0.63 MG/3 ML IH PRN (09:24)
[2019-11-07] MEDS ORDERED: Loratadine 10 MG TABLET PO PRN (09:24)
[2019-11-07] MEDS: Famotidine 20 MG TABLET PO SCH (16:07)
[2019-11-07 16:08] LABS: Adenovirus Not Detected (Not Detect); Bordetella Pertussis Not Detected (Not Detect); Chlamydophila pneumoniae Not Detected (Not Detect); Coronavirus 229E Not Detected (Not Detect); Coronavirus HKU1 DETECTED (Not Detect); Coronavirus NL63 Not Detected (Not Detect); Coronavirus OC43 Not Detected (Not Detect); Human Metapneumovirus Not Detected (Not Detect); Human Rhinovirus/Enterovirus Not Detected (Not Detect); Influenza A Subtype 2009 H1 Not Detected (Not Detect); Influenza A Untypeable Not Detected (Not Detect); Influenza B Not Detected (Not Detect); Mycoplasma pneumoniae Not Detected (Not Detect); Parainfluenza Virus 1 Not Detected (Not Detect); Parainfluenza Virus 2 Not Detected (Not Detect); Parainfluenza Virus 3 Not Detected (Not Detect); Parainfluenza Virus 4 Not Detected (Not Detect); Respiratory Syncytial Virus Not Detected (Not Detect)
[2019-11-07] MEDS ORDERED: NON-FORMULARY MEDICATION 1 EACH EACH (Fluticasone Propionate [Flovent Hfa] 1 PUFF) IH SCH (21:00)
[2019-11-08] MEDS: Piperacillin/Tazobactam 3.375 GM in 0.9 % Sodium Chloride Mini Bag 100 ML IVPB SCH ×3 (00:22→15:49)
[2019-11-08] MEDS: *HR* Heparin 5,000 UNIT/ML VIAL SQ SCH ×3 (05:02→21:29)
[2019-11-08] MEDS: Cholecalciferol (D-3) 1,000 UNIT (25MCG) TABLET PO SCH (08:28)
[2019-11-08] MEDS: Famotidine 20 MG TABLET PO SCH ×2 (08:28→15:50)
[2019-11-08] MEDS: Linezolid 600 MG TABLET PO SCH ×2 (08:28→21:28)
[2019-11-08] MEDS: Aspirin 81 MG TAB.CHEW PO SCH (08:29)
[2019-11-08] MEDS: Multivit/Ca/Min/Fe/FA 1 TAB TABLET PO SCH (08:29)
[2019-11-08] MEDS: Lisinopril 20 MG TABLET PO SCH (08:29)
[2019-11-08] MEDS: Bumetanide 1 MG TABLET PO SCH (08:29)
[2019-11-08] MEDS: Fluticasone Propionate Nasal 50 MCG/SPRAY BOTTLE NS SCH (08:32)
[2019-11-08 10:57] LABS: Basophils # 0.1 K/mcL (0.0-0.2); Basophils % 0.8 %; Eosinophils # 0.2 K/mcL (0.0-0.6); Eosinophils % 3.2 %; Hematocrit 34.5 % (37.5-50.1); Hemoglobin 10.9 g/dL (12.9-16.9); Immature Granulocytes % 0.3 % (0-4); Lymphocytes # 0.9 K/mcL (0.6-4.6); Lymphocytes % 13.9 %; Mean Corpuscular HGB Conc 31.6 g/dL (31.6-35.5); Mean Corpuscular Hemoglobin 26.2 pg (28.0-33.3); Mean Corpuscular Volume 82.9 fL (83.0-100.0); Mean Platelet Volume 10.2 fL (9.4-12.4); Monocytes # 0.4 K/mcL (0.0-1.3); Monocytes % 6.2 %; Neutrophils # 4.8 K/mcL (1.6-8.9); Platelet Count 269 K/mcL (140-400); Red Blood Count 4.16 M/mcL (4.19-5.50); Red Cell Distribution Width 17.7 % (11.5-14.5); Segmented Neutrophils % 75.6 %; White Blood Count 6.3 K/mcL (4.3-11.1)
[2019-11-08 11:16] LABS: BUN/Creatinine Ratio 14 (6-26); Blood Urea Nitrogen 13 mg/dL (6-20); Calcium 8.8 mg/dL (8.6-10.3); Carbon Dioxide 24 mEq/L (23-29); Chloride 104 mEq/L (98-107); Glucose 196 mg/dL (70-105); Osmolality,Calculated 288 (280-300); Potassium 3.4 mEq/L (3.5-5.1); Sodium 136 mEq/L (136-145); eGFR For African Americans > 60 (> 60); eGFR For Non-African Americans > 60 (> 60)
[2019-11-09] MEDS: Piperacillin/Tazobactam 3.375 GM in 0.9 % Sodium Chloride Mini Bag 100 ML IVPB SCH ×3 (00:38→16:53)
[2019-11-09 03:20] LABS: Basophils % 0.6 %; Eosinophils # 0.3 K/mcL (0.0-0.6); Eosinophils % 4.6 %; Hematocrit 33.2 % (37.5-50.1); Hemoglobin 10.5 g/dL (12.9-16.9); Immature Granulocytes % 0.4 % (0-4); Lymphocytes # 1.5 K/mcL (0.6-4.6); Lymphocytes % 21.3 %; Mean Corpuscular HGB Conc 31.6 g/dL (31.6-35.5); Mean Corpuscular Hemoglobin 26.3 pg (28.0-33.3); Mean Platelet Volume 10.4 fL (9.4-12.4); Monocytes # 0.7 K/mcL (0.0-1.3); Monocytes % 10.1 %; Neutrophils # 4.3 K/mcL (1.6-8.9); Platelet Count 297 K/mcL (140-400); Red Cell Distribution Width 17.7 % (11.5-14.5); White Blood Count 6.8 K/mcL (4.3-11.1)
[2019-11-09 03:37] LABS: BUN/Creatinine Ratio 17 (6-26); Blood Urea Nitrogen 16 mg/dL (6-20); Calcium 8.8 mg/dL (8.6-10.3); Carbon Dioxide 24 mEq/L (23-29); Chloride 102 mEq/L (98-107); Glucose 111 mg/dL (70-105); Osmolality,Calculated 284 (280-300); Potassium 3.8 mEq/L (3.5-5.1); Sodium 136 mEq/L (136-145); eGFR For African Americans > 60 (> 60); eGFR For Non-African Americans > 60 (> 60)
[2019-11-09] MEDS: *HR* Heparin 5,000 UNIT/ML VIAL SQ SCH ×3 (06:19→20:31)
[2019-11-09] MEDS: Cholecalciferol (D-3) 1,000 UNIT (25MCG) TABLET PO SCH (08:08)
[2019-11-09] MEDS: Aspirin 81 MG TAB.CHEW PO SCH (08:08)
[2019-11-09] MEDS: Famotidine 20 MG TABLET PO SCH ×2 (08:08→16:52)
[2019-11-09] MEDS: Multivit/Ca/Min/Fe/FA 1 TAB TABLET PO SCH (08:09)
[2019-11-09] MEDS: Bumetanide 1 MG TABLET PO SCH (08:09)
[2019-11-09] MEDS: Lisinopril 20 MG TABLET PO SCH (08:09)
[2019-11-09] MEDS: Fluticasone Propionate Nasal 50 MCG/SPRAY BOTTLE NS SCH (08:13)
[2019-11-10] MEDS: Piperacillin/Tazobactam 3.375 GM in 0.9 % Sodium Chloride Mini Bag 100 ML IVPB SCH ×2 (00:09→08:05)
[2019-11-10] MEDS: *HR* Heparin 5,000 UNIT/ML VIAL SQ SCH ×2 (05:14→13:58)
[2019-11-10 06:54] LABS: BUN/Creatinine Ratio 16 (6-26); Blood Urea Nitrogen 14 mg/dL (6-20); Calcium 8.4 mg/dL (8.6-10.3); Carbon Dioxide 27 mEq/L (23-29); Chloride 101 mEq/L (98-107); Glucose 128 mg/dL (70-105); Osmolality,Calculated 290 (280-300); Potassium 3.6 mEq/L (3.5-5.1); Sodium 139 mEq/L (136-145); eGFR For African Americans > 60 (> 60); eGFR For Non-African Americans > 60 (> 60)
[2019-11-10] MEDS: Multivit/Ca/Min/Fe/FA 1 TAB TABLET PO SCH (08:01)
[2019-11-10] MEDS: Aspirin 81 MG TAB.CHEW PO SCH (08:01)
[2019-11-10] MEDS: Famotidine 20 MG TABLET PO SCH ×2 (08:02→18:33)
[2019-11-10] MEDS: Cholecalciferol (D-3) 1,000 UNIT (25MCG) TABLET PO SCH (08:03)
[2019-11-10] MEDS: Lisinopril 20 MG TABLET PO SCH (08:03)
[2019-11-10] MEDS: Bumetanide 1 MG TABLET PO SCH (08:08)
[2019-11-10] MEDS: Fluticasone Propionate Nasal 50 MCG/SPRAY BOTTLE NS SCH (08:11)
[2019-11-10 15:07] VITALS: BP 103/70
[2019-11-11 07:03] LABS: Mycoplasma pneumoniae IgG 0.24 U/L (<=0.09)
== END 2019-11-10 19:34 | disposition home health service (06) | DRG 871 ==
LOC: 3ANU 17:06 → EMEROOARM 17:06 → SUATTDRO 23:31 → 3ANU 11-07 00:22
PROVIDERS: ADMIT Internal Medicine; ATTEND Student in an Organized Health Care Education/Training Program

== ENCOUNTER 2020-02-01 13:39 | Inpatient (IN) ==
[2020-02-01] MEDS ORDERED: Isovue-370 500 ML BOTTLE IVP ONE (14:38)
[2020-02-01 14:59] LABS: Bilirubin,Urine Negative (Negative); Blood,Urine Small (Negative); Clarity,Urine Turbid (Clear); Color,Urine Yellow (Yellow); Glucose,Urine (UA) 100 mg/dL (Normal); Ketones,Urine Negative (Negative); Leukocyte Esterase,Urine Large (Negative); Nitrite,Urine Negative (Negative); PH,Urine 8.5 pH Units (5.0-8.0); Protein,Urine >=300 mg/dL (Neg-Trace); Specific Gravity,Urine 1.019 (1.010-1.025); Urobilinogen,Urine Normal (Normal)
[2020-02-01 15:04] LABS: Bacteria,Urine Many per hpf (None-Few)
[2020-02-01 15:16] LABS: Amorphous Sediment,Urine Many per hpf (Few); Squamous Epithelial Cell,Urine Few per lpf (None-Few)
[2020-02-01 15:26] LABS: Basophils # 0.1 K/mcL (0.0-0.2); Basophils % 0.4 %; Hematocrit 32.9 % (37.5-50.1); Immature Granulocytes % 0.6 % (0-4); Lymphocytes # 0.8 K/mcL (0.6-4.6); Lymphocytes % 3.8 %; Mean Corpuscular HGB Conc 30.4 g/dL (31.6-35.5); Mean Corpuscular Hemoglobin 25.1 pg (28.0-33.3); Mean Corpuscular Volume 82.5 fL (83.0-100.0); Mean Platelet Volume 10.1 fL (9.4-12.4); Monocytes # 0.9 K/mcL (0.0-1.3); Monocytes % 4.5 %; Neutrophils # 18.9 K/mcL (1.6-8.9); Platelet Count 261 K/mcL (140-400); Red Blood Count 3.99 M/mcL (4.19-5.50); Red Cell Distribution Width 16.6 % (11.5-14.5); Segmented Neutrophils % 90.7 %
[2020-02-01 15:33] LABS: White Blood Count 20.8 K/mcL (4.3-11.1)
[2020-02-01 15:37] LABS: Alanine Aminotransferase 10 Units/L (7-52); Albumin 3.5 g/dL (3.5-5.7); Albumin/Globulin Ratio 0.8 (1.1-2.2); Alkaline Phosphatase 81 Units/L (34-104); Aspartate Amino Transferase 12 Units/L (13-39); BUN/Creatinine Ratio 10 (6-26); Bilirubin,Total 0.8 mg/dL (0.3-1.0); Blood Urea Nitrogen 11 mg/dL (6-20); Calcium 8.7 mg/dL (8.6-10.3); Carbon Dioxide 26 mEq/L (23-29); Chloride 99 mEq/L (98-107); Globulin 4.6 g/dL (2.4-3.5); Glucose 134 mg/dL (70-105); Osmolality,Calculated 277 (280-300); Potassium 3.5 mEq/L (3.5-5.1); Sodium 133 mEq/L (136-145); Total Protein 8.1 g/dL (6.4-8.9); eGFR For African Americans > 60 (> 60); eGFR For Non-African Americans > 60 (> 60)
[2020-02-01] MEDS ORDERED: Gentamicin 90 MG in 0.9 % Sodium Chloride 100 ML IVPB ONE (16:46)
[2020-02-01] MEDS ORDERED: 0.9 % Sodium Chloride 1,000 ML IVC ONE (16:47)
[2020-02-01] MEDS ORDERED: Acetaminophen 325 MG TABLET PO ONE (16:48)
[2020-02-01] MEDS ORDERED: Ondansetron 4 MG/2 ML VIAL IVP PRN (17:36)
[2020-02-01] MEDS ORDERED: Naloxone 0.4 MG/ML INJ IVP PRN (17:36)
[2020-02-01 17:55] LABS: C-Reactive Protein 261 mg/L (Less than 10)
[2020-02-01] MEDS ORDERED: Vancomycin 1,750 MG in 0.9 % Sodium Chloride 250 ML IVPB SCH (18:00)
[2020-02-01] MEDS ORDERED: Ibuprofen 400 MG TABLET PO STA (18:03)
[2020-02-01] MEDS: Acetaminophen 325 MG TABLET PO PRN (19:08)
[2020-02-01] MEDS: 0.9 % Sodium Chloride 1,000 ML IVC SCH (19:08)
[2020-02-01] MEDS: *HR* Heparin 5,000 UNIT/ML VIAL SQ SCH (21:37)
[2020-02-01] MEDS: Piperacillin/Tazobactam 3.375 GM in 0.9 % Sodium Chloride Mini Bag 100 ML IVPB SCH (23:51)
[2020-02-02] MEDS: 0.9 % Sodium Chloride 1,000 ML IVC SCH (03:58)
[2020-02-02 05:02] LABS: Basophils # 0.1 K/mcL (0.0-0.2); Basophils % 0.4 %; Eosinophils # 0.1 K/mcL (0.0-0.6); Eosinophils % 1.1 %; Hemoglobin 9.4 g/dL (12.9-16.9); Immature Granulocytes % 0.4 % (0-4); Lymphocytes # 0.8 K/mcL (0.6-4.6); Lymphocytes % 6.3 %; Mean Corpuscular HGB Conc 29.4 g/dL (31.6-35.5); Mean Corpuscular Hemoglobin 24.8 pg (28.0-33.3); Mean Corpuscular Volume 84.4 fL (83.0-100.0); Mean Platelet Volume 11.4 fL (9.4-12.4); Monocytes # 0.7 K/mcL (0.0-1.3); Monocytes % 5.6 %; Neutrophils # 10.3 K/mcL (1.6-8.9); Platelet Count 149 K/mcL (140-400); Red Blood Count 3.79 M/mcL (4.19-5.50); Segmented Neutrophils % 86.2 %; White Blood Count 11.9 K/mcL (4.3-11.1)
[2020-02-02 05:24] LABS: BUN/Creatinine Ratio 13 (6-26); Blood Urea Nitrogen 11 mg/dL (6-20); Calcium 8.1 mg/dL (8.6-10.3); Carbon Dioxide 21 mEq/L (23-29); Chloride 106 mEq/L (98-107); Glucose 134 mg/dL (70-105); Osmolality,Calculated 279 (280-300); Potassium 3.7 mEq/L (3.5-5.1); Sodium 134 mEq/L (136-145); eGFR For African Americans > 60 (> 60); eGFR For Non-African Americans > 60 (> 60)
[2020-02-02] MEDS: Piperacillin/Tazobactam 3.375 GM in 0.9 % Sodium Chloride Mini Bag 100 ML IVPB SCH ×2 (07:27→15:09)
[2020-02-02] MEDS: *HR* Heparin 5,000 UNIT/ML VIAL SQ SCH ×2 (07:39→22:07)
[2020-02-02] MEDS: Bumetanide 1 MG TABLET PO SCH (16:49)
[2020-02-03] MEDS: Piperacillin/Tazobactam 3.375 GM in 0.9 % Sodium Chloride Mini Bag 100 ML IVPB SCH ×3 (01:30→15:27)
[2020-02-03] MEDS: Acetaminophen 325 MG TABLET PO PRN (04:25)
[2020-02-03 05:09] LABS: White Blood Count 8.8 K/mcL (4.3-11.1)
[2020-02-03 05:10] LABS: Basophils % 0.5 %; Eosinophils # 0.2 K/mcL (0.0-0.6); Eosinophils % 2.4 %; Hematocrit 30.7 % (37.5-50.1); Hemoglobin 9.1 g/dL (12.9-16.9); Immature Granulocytes % 0.3 % (0-4); Lymphocytes # 1.1 K/mcL (0.6-4.6); Mean Corpuscular HGB Conc 29.6 g/dL (31.6-35.5); Mean Corpuscular Hemoglobin 24.1 pg (28.0-33.3); Mean Corpuscular Volume 81.4 fL (83.0-100.0); Mean Platelet Volume 11.4 fL (9.4-12.4); Monocytes # 0.7 K/mcL (0.0-1.3); Monocytes % 7.6 %; Neutrophils # 6.7 K/mcL (1.6-8.9); Platelet Count 242 K/mcL (140-400); Red Blood Count 3.77 M/mcL (4.19-5.50); Red Cell Distribution Width 16.8 % (11.5-14.5); Segmented Neutrophils % 76.2 %
[2020-02-03] MEDS: Cholecalciferol (D-3) 1,000 UNIT (25MCG) TABLET PO SCH (07:24)
[2020-02-03] MEDS: Aspirin Enteric Coated 81 MG Tablet PO SCH (07:24)
[2020-02-03] MEDS: Loratadine 10 MG TABLET PO SCH (07:24)
[2020-02-03] MEDS: *HR* Heparin 5,000 UNIT/ML VIAL SQ SCH ×2 (07:28→20:36)
[2020-02-03] MEDS: Fluticasone Propionate Nasal 50 MCG/SPRAY BOTTLE NS SCH (07:29)
[2020-02-03] MEDS: Bumetanide 1 MG TABLET PO SCH (16:28)
[2020-02-04] MEDS: Piperacillin/Tazobactam 3.375 GM in 0.9 % Sodium Chloride Mini Bag 100 ML IVPB SCH ×3 (00:59→16:06)
[2020-02-04 07:14] LABS: Hematocrit 31.3 % (37.5-50.1); Hemoglobin 9.4 g/dL (12.9-16.9); Mean Corpuscular Volume 79.8 fL (83.0-100.0); Mean Platelet Volume 10.9 fL (9.4-12.4); Platelet Count 284 K/mcL (140-400); Red Blood Count 3.92 M/mcL (4.19-5.50); Red Cell Distribution Width 16.9 % (11.5-14.5); White Blood Count 9.4 K/mcL (4.3-11.1)
[2020-02-04 07:25] LABS: BUN/Creatinine Ratio 14 (6-26); Blood Urea Nitrogen 14 mg/dL (6-20); Carbon Dioxide 28 mEq/L (23-29); Chloride 99 mEq/L (98-107); Glucose 136 mg/dL (70-105); Osmolality,Calculated 281 (280-300); Potassium 3.5 mEq/L (3.5-5.1); Sodium 134 mEq/L (136-145); eGFR For African Americans > 60 (> 60); eGFR For Non-African Americans > 60 (> 60)
[2020-02-04] MEDS: Aspirin Enteric Coated 81 MG Tablet PO SCH (09:04)
[2020-02-04] MEDS: Cholecalciferol (D-3) 1,000 UNIT (25MCG) TABLET PO SCH (09:04)
[2020-02-04] MEDS: *HR* Heparin 5,000 UNIT/ML VIAL SQ SCH ×2 (09:04→23:09)
[2020-02-04] MEDS: Loratadine 10 MG TABLET PO SCH (09:04)
[2020-02-04] MEDS: Fluticasone Propionate Nasal 50 MCG/SPRAY BOTTLE NS SCH (09:06)
[2020-02-04] MEDS ORDERED: Gadolinium Contrast Agent (WT Based) IV PRN (14:06)
[2020-02-04] MEDS: Bumetanide 1 MG TABLET PO SCH (16:06)
[2020-02-05] MEDS: Piperacillin/Tazobactam 3.375 GM in 0.9 % Sodium Chloride Mini Bag 100 ML IVPB SCH ×3 (01:23→16:22)
[2020-02-05 05:03] LABS: Hematocrit 32.5 % (37.5-50.1); Mean Corpuscular HGB Conc 30.8 g/dL (31.6-35.5); Mean Corpuscular Hemoglobin 24.9 pg (28.0-33.3); Mean Platelet Volume 10.4 fL (9.4-12.4); Platelet Count 293 K/mcL (140-400); Red Blood Count 4.01 M/mcL (4.19-5.50); Red Cell Distribution Width 16.8 % (11.5-14.5); White Blood Count 9.5 K/mcL (4.3-11.1)
[2020-02-05] MEDS: Loratadine 10 MG TABLET PO SCH (08:35)
[2020-02-05] MEDS: *HR* Heparin 5,000 UNIT/ML VIAL SQ SCH (08:35)
[2020-02-05] MEDS: Aspirin Enteric Coated 81 MG Tablet PO SCH (08:35)
[2020-02-05] MEDS: Cholecalciferol (D-3) 1,000 UNIT (25MCG) TABLET PO SCH (08:36)
[2020-02-05] MEDS: Fluticasone Propionate Nasal 50 MCG/SPRAY BOTTLE NS SCH (08:36)
[2020-02-05 16:26] VITALS: BP 122/74
[2020-02-05] MEDS: Bumetanide 1 MG TABLET PO SCH (16:26)
[2020-02-05] MEDS ORDERED: Aminoglycoside Consult 1 EACH MC ONE (17:48)
== END 2020-02-05 17:49 | disposition home health service (06) | DRG 871 ==
LOC: SUATTDRO → EMEROOARM 13:39 → 3ANU 13:39 → SUATTDRO 02-02 11:30
PROVIDERS: ADMIT Internal Medicine; ATTEND Internal Medicine

== ENCOUNTER 2020-05-12 12:06 | Inpatient (IN) ==
[2020-05-12] MEDS ORDERED: Piperacillin/Tazobactam 3.375 GM in Water for inj. (sterile) 20 ML IVP ONE (12:14)
[2020-05-12] MEDS ORDERED: Vancomycin 2,000 MG/520 ML IV.SOLN IVPB ONE (12:14)
[2020-05-12] MEDS ORDERED: Clindamycin 900 MG/50 ML 900 MG/50 ML IV.SOLN IVPB ONE (12:18)
[2020-05-12] MEDS ORDERED: Isovue-370 500 ML BOTTLE IVP ONE (12:19)
[2020-05-12] MEDS ORDERED: Ondansetron 4 MG/2 ML VIAL IVP ONE (12:29)
[2020-05-12] MEDS ORDERED: Acetaminophen 325 MG TABLET PO ONE (12:30)
[2020-05-12 13:26] LABS: Bilirubin,Urine Negative (Negative); Blood,Urine Small (Negative); Clarity,Urine Clear (Clear); Color,Urine Yellow (Yellow); Glucose,Urine (UA) Normal (Normal); Ketones,Urine Negative (Negative); Leukocyte Esterase,Urine Moderate (Negative); Nitrite,Urine Negative (Negative); Protein,Urine Trace mg/dL (Neg-Trace); Specific Gravity,Urine 1.016 (1.010-1.025); Urobilinogen,Urine Normal (Normal)
[2020-05-12 13:30] LABS: Bacteria,Urine None Seen per hpf (None-Few); Hyaline Casts,Urine None Seen per lpf (None-Few); RBC,Urine 0-3 per hpf (0-3); Squamous Epithelial Cell,Urine None Seen per lpf (None-Few); WBC,Urine 15-30 per hpf (0-3)
[2020-05-12] MEDS: 0.9 % Sodium Chloride 1,000 ML IVC SCH ×4 (14:16→21:36)
[2020-05-12 14:43] LABS: Basophils # 0.1 K/mcL (0.0-0.2); Basophils % 0.2 %; Hematocrit 31.7 % (37.5-50.1); Hemoglobin 9.3 g/dL (12.9-16.9); Immature Granulocytes % 0.7 % (0-4); Lymphocytes # 0.4 K/mcL (0.6-4.6); Lymphocytes % 1.8 %; Mean Corpuscular HGB Conc 29.3 g/dL (31.6-35.5); Mean Corpuscular Hemoglobin 23.1 pg (28.0-33.3); Mean Corpuscular Volume 78.7 fL (83.0-100.0); Mean Platelet Volume 10.2 fL (9.4-12.4); Monocytes # 0.6 K/mcL (0.0-1.3); Monocytes % 2.8 %; Neutrophils # 20.1 K/mcL (1.6-8.9); Platelet Count 352 K/mcL (140-400); Red Blood Count 4.03 M/mcL (4.19-5.50); Red Cell Distribution Width 17.1 % (11.5-14.5); Segmented Neutrophils % 94.5 %; White Blood Count 21.3 K/mcL (4.3-11.1)
[2020-05-12 14:53] LABS: INR 1.3; Prothrombin Time 14.5 Seconds (9.4-12.1)
[2020-05-12 14:55] LABS: Activated Partial Thrombo Time 30.8 Seconds (26.0-36.0)
[2020-05-12 15:15] LABS: Alanine Aminotransferase 11 Units/L (7-52); Albumin 3.5 g/dL (3.5-5.7); Albumin/Globulin Ratio 0.9 (1.1-2.2); Alkaline Phosphatase 73 Units/L (34-104); Aspartate Amino Transferase 14 Units/L (13-39); BUN/Creatinine Ratio 12 (6-26); Bilirubin,Direct 0.2 mg/dL (0.0-0.2); Bilirubin,Indirect 0.5 mg/dL (0.0-1.0); Bilirubin,Total 0.7 mg/dL (0.3-1.0); Blood Urea Nitrogen 11 mg/dL (6-20); C-Reactive Protein 89 mg/L (Less than 10); Calcium 8.5 mg/dL (8.6-10.3); Carbon Dioxide 22 mEq/L (23-29); Chloride 104 mEq/L (98-107); Globulin 3.9 g/dL (2.4-3.5); Glucose 154 mg/dL (70-105); Lactate Dehydrogenase 114 Units/L (140-271); Lipase 12 Units/L (11-82); Magnesium 1.5 mg/dL (1.6-2.6); Osmolality,Calculated 282 (280-300); Phosphorous 1.6 mg/dL (2.7-4.5); Potassium 3.4 mEq/L (3.5-5.1); Sodium 135 mEq/L (136-145); Total Protein 7.4 g/dL (6.4-8.9); Troponin I 1.12 ng/mL (< 0.04); eGFR For African Americans > 60 (> 60); eGFR For Non-African Americans > 60 (> 60)
[2020-05-12 15:45] LABS: Ferritin 24 ng/mL (20-250)
[2020-05-12] MEDS ORDERED: Calcium Gluconate 1gm/50mL 1 GM/50 ML BAG IVPB ONE (16:24)
[2020-05-12] MEDS ORDERED: Potassium Phosphate 44 MEQ in 0.9 % Sodium Chloride 250 ML IVPB ONE (16:24)
[2020-05-12] MEDS ORDERED: *HR* HYDROcodone/Acet 5/325 mg TABLET PO PRN (17:37)
[2020-05-12] MEDS ORDERED: Naloxone 0.4 MG/ML INJ IVP PRN (17:37)
[2020-05-12] MEDS ORDERED: *HR* OxyCODONE Immed Rel 5 MG TABLET PO PRN (17:37)
[2020-05-12] MEDS ORDERED: Ondansetron 4 MG/2 ML VIAL IVP PRN (17:37)
[2020-05-12] MEDS ORDERED: Potassium Chloride 40 MEQ, Lidocaine 1% 2 ML in 0.9 % Sodium Chloride 500 ML IVPB ONE (17:40)
[2020-05-12] MEDS: Acetaminophen 325 MG TABLET PO PRN (20:01)
[2020-05-12] MEDS: Piperacillin/Tazobactam 3.375 GM in 0.9 % Sodium Chloride Mini Bag 100 ML IVPB SCH (20:01)
[2020-05-12] MEDS: *HR* Heparin 5,000 UNIT/ML VIAL SQ SCH (22:53)
[2020-05-13] MEDS: Vancomycin 1,500 MG/265 ML IV.SOLN IVPB SCH ×2 (01:50→15:57)
[2020-05-13 02:32] LABS: Hematocrit 29.1 % (37.5-50.1); Hemoglobin 8.7 g/dL (12.9-16.9); Mean Corpuscular HGB Conc 29.9 g/dL (31.6-35.5); Mean Corpuscular Hemoglobin 23.5 pg (28.0-33.3); Mean Corpuscular Volume 78.6 fL (83.0-100.0); Platelet Count 318 K/mcL (140-400); Red Cell Distribution Width 17.3 % (11.5-14.5); White Blood Count 18.6 K/mcL (4.3-11.1)
[2020-05-13 02:49] LABS: Alanine Aminotransferase 9 Units/L (7-52); Albumin 3.3 g/dL (3.5-5.7); Albumin/Globulin Ratio 0.9 (1.1-2.2); Alkaline Phosphatase 67 Units/L (34-104); Aspartate Amino Transferase 13 Units/L (13-39); BUN/Creatinine Ratio 10 (6-26); Blood Urea Nitrogen 9 mg/dL (6-20); Calcium 7.8 mg/dL (8.6-10.3); Carbon Dioxide 20 mEq/L (23-29); Chloride 106 mEq/L (98-107); Globulin 3.6 g/dL (2.4-3.5); Glucose 125 mg/dL (70-105); Iron < 10 mcg/dL (65-175); Magnesium 1.9 mg/dL (1.6-2.6); Osmolality,Calculated 278 (280-300); Potassium 3.8 mEq/L (3.5-5.1); Sodium 134 mEq/L (136-145); Total Protein 6.9 g/dL (6.4-8.9); Transferrin 216 mg/dL (203-362); eGFR For African Americans > 60 (> 60); eGFR For Non-African Americans > 60 (> 60)
[2020-05-13] MEDS: Acetaminophen 325 MG TABLET PO PRN (03:36)
[2020-05-13] MEDS: Piperacillin/Tazobactam 3.375 GM in 0.9 % Sodium Chloride Mini Bag 100 ML IVPB SCH ×3 (04:48→19:42)
[2020-05-13] MEDS: *HR* Heparin 5,000 UNIT/ML VIAL SQ SCH ×3 (05:12→21:28)
[2020-05-13] MEDS ORDERED: Nystatin POWDER 30 GM BOTTLE TP PRN (08:58)
[2020-05-13] MEDS: Loratadine 10 MG TABLET PO SCH (11:21)
[2020-05-14] MEDS: Vancomycin 1,500 MG/265 ML IV.SOLN IVPB SCH ×2 (02:24→14:46)
[2020-05-14] MEDS: Acetaminophen 325 MG TABLET PO PRN ×2 (02:31→20:00)
[2020-05-14] MEDS: Piperacillin/Tazobactam 3.375 GM in 0.9 % Sodium Chloride Mini Bag 100 ML IVPB SCH ×2 (04:20→12:51)
[2020-05-14] MEDS: *HR* Heparin 5,000 UNIT/ML VIAL SQ SCH ×3 (05:33→20:00)
[2020-05-14 08:17] LABS: Hematocrit 29.8 % (37.5-50.1); Hemoglobin 8.7 g/dL (12.9-16.9); Mean Corpuscular HGB Conc 29.2 g/dL (31.6-35.5); Mean Corpuscular Volume 78.8 fL (83.0-100.0); Mean Platelet Volume 10.8 fL (9.4-12.4); Platelet Count 288 K/mcL (140-400); Red Blood Count 3.78 M/mcL (4.19-5.50); Red Cell Distribution Width 17.5 % (11.5-14.5); White Blood Count 13.9 K/mcL (4.3-11.1)
[2020-05-14] MEDS: Loratadine 10 MG TABLET PO SCH (08:22)
[2020-05-14 08:30] LABS: BUN/Creatinine Ratio 13 (6-26); Blood Urea Nitrogen 12 mg/dL (6-20); Calcium 8.3 mg/dL (8.6-10.3); Carbon Dioxide 19 mEq/L (23-29); Chloride 107 mEq/L (98-107); Glucose 101 mg/dL (70-105); Magnesium 1.9 mg/dL (1.6-2.6); Osmolality,Calculated 278 (280-300); Potassium 4.3 mEq/L (3.5-5.1); Sodium 134 mEq/L (136-145); eGFR For African Americans > 60 (> 60); eGFR For Non-African Americans > 60 (> 60)
[2020-05-14] MEDS: Ertapenem 1,000 MG in 0.9 % Sodium Chloride Mini Bag 100 ML IVPB SCH (14:46)
[2020-05-15] MEDS: Vancomycin 1,500 MG/265 ML IV.SOLN IVPB SCH ×2 (01:25→14:30)
[2020-05-15] MEDS: *HR* Heparin 5,000 UNIT/ML VIAL SQ SCH ×3 (05:10→22:13)
[2020-05-15] MEDS: Loratadine 10 MG TABLET PO SCH (08:06)
[2020-05-15] MEDS: Ertapenem 1,000 MG in 0.9 % Sodium Chloride Mini Bag 100 ML IVPB SCH (08:08)
[2020-05-15 08:22] LABS: Basophils % 0.5 %; Eosinophils % 3.4 %; Immature Granulocytes % 0.4 % (0-4); Red Cell Distribution Width 17.4 % (11.5-14.5)
[2020-05-15 08:23] LABS: Eosinophils # 0.3 K/mcL (0.0-0.6); Hematocrit 28.1 % (37.5-50.1); Hemoglobin 8.3 g/dL (12.9-16.9); Lymphocytes # 0.8 K/mcL (0.6-4.6); Lymphocytes % 9.5 %; Mean Corpuscular HGB Conc 29.5 g/dL (31.6-35.5); Mean Corpuscular Hemoglobin 23.4 pg (28.0-33.3); Mean Corpuscular Volume 79.2 fL (83.0-100.0); Monocytes # 0.6 K/mcL (0.0-1.3); Monocytes % 6.8 %; Neutrophils # 6.5 K/mcL (1.6-8.9); Platelet Count 312 K/mcL (140-400); Red Blood Count 3.55 M/mcL (4.19-5.50); Segmented Neutrophils % 79.4 %; White Blood Count 8.2 K/mcL (4.3-11.1)
[2020-05-15 08:41] LABS: Platelet Estimate Normal (Normal)
[2020-05-15 08:42] LABS: Anisocytosis 1+ (Not Present); BUN/Creatinine Ratio 13 (6-26); Blood Urea Nitrogen 12 mg/dL (6-20); Calcium 8.6 mg/dL (8.6-10.3); Carbon Dioxide 25 mEq/L (23-29); Chloride 105 mEq/L (98-107); Glucose 101 mg/dL (70-105); Osmolality,Calculated 282 (280-300); Potassium 3.6 mEq/L (3.5-5.1); Sodium 136 mEq/L (136-145); eGFR For African Americans > 60 (> 60); eGFR For Non-African Americans > 60 (> 60)
[2020-05-16] MEDS: Vancomycin 1,500 MG/265 ML IV.SOLN IVPB SCH ×2 (02:27→14:57)
[2020-05-16 03:01] LABS: Basophils # 0.1 K/mcL (0.0-0.2); Basophils % 0.6 %; Eosinophils # 0.4 K/mcL (0.0-0.6); Eosinophils % 4.9 %; Hematocrit 29.3 % (37.5-50.1); Hemoglobin 8.7 g/dL (12.9-16.9); Immature Granulocytes % 0.6 % (0-4); Lymphocytes # 1.3 K/mcL (0.6-4.6); Lymphocytes % 15.8 %; Mean Corpuscular HGB Conc 29.7 g/dL (31.6-35.5); Mean Corpuscular Hemoglobin 23.1 pg (28.0-33.3); Mean Corpuscular Volume 77.9 fL (83.0-100.0); Mean Platelet Volume 9.8 fL (9.4-12.4); Monocytes # 0.6 K/mcL (0.0-1.3); Monocytes % 7.3 %; Neutrophils # 5.9 K/mcL (1.6-8.9); Platelet Count 363 K/mcL (140-400); Red Blood Count 3.76 M/mcL (4.19-5.50); Red Cell Distribution Width 17.4 % (11.5-14.5); Segmented Neutrophils % 70.8 %; White Blood Count 8.4 K/mcL (4.3-11.1)
[2020-05-16 03:08] LABS: BUN/Creatinine Ratio 16 (6-26); Blood Urea Nitrogen 16 mg/dL (6-20); Calcium 8.8 mg/dL (8.6-10.3); Carbon Dioxide 27 mEq/L (23-29); Chloride 104 mEq/L (98-107); Glucose 146 mg/dL (70-105); Osmolality,Calculated 288 (280-300); Potassium 3.5 mEq/L (3.5-5.1); Sodium 137 mEq/L (136-145); eGFR For African Americans > 60 (> 60); eGFR For Non-African Americans > 60 (> 60)
[2020-05-16] MEDS: *HR* Heparin 5,000 UNIT/ML VIAL SQ SCH ×3 (05:15→20:44)
[2020-05-16] MEDS: Ertapenem 1,000 MG in 0.9 % Sodium Chloride Mini Bag 100 ML IVPB SCH (09:26)
[2020-05-16] MEDS: Loratadine 10 MG TABLET PO SCH (09:26)
[2020-05-16] MEDS ORDERED: Furosemide 20 MG/2 ML VIAL IVP ONE (14:09)
[2020-05-16] MEDS: Bumetanide 1 MG TABLET PO SCH (20:43)
[2020-05-17] MEDS: Vancomycin 1,500 MG/265 ML IV.SOLN IVPB SCH ×2 (01:12→17:13)
[2020-05-17 01:33] LABS: Basophils # 0.1 K/mcL (0.0-0.2); Basophils % 0.8 %; Eosinophils # 0.4 K/mcL (0.0-0.6); Eosinophils % 4.9 %; Hematocrit 33.1 % (37.5-50.1); Hemoglobin 9.6 g/dL (12.9-16.9); Immature Granulocytes % 1.1 % (0-4); Lymphocytes # 1.7 K/mcL (0.6-4.6); Lymphocytes % 19.6 %; Mean Corpuscular Hemoglobin 22.5 pg (28.0-33.3); Mean Corpuscular Volume 77.5 fL (83.0-100.0); Mean Platelet Volume 10.1 fL (9.4-12.4); Monocytes # 0.8 K/mcL (0.0-1.3); Monocytes % 8.7 %; Neutrophils # 5.6 K/mcL (1.6-8.9); Nucleated Red Blood Cells 0.3 /100 WBC (0); Platelet Count 450 K/mcL (140-400); Red Blood Count 4.27 M/mcL (4.19-5.50); Red Cell Distribution Width 17.5 % (11.5-14.5); Segmented Neutrophils % 64.9 %; White Blood Count 8.7 K/mcL (4.3-11.1)
[2020-05-17 01:54] LABS: BUN/Creatinine Ratio 21 (6-26); Blood Urea Nitrogen 18 mg/dL (6-20); Calcium 9.3 mg/dL (8.6-10.3); Carbon Dioxide 27 mEq/L (23-29); Chloride 97 mEq/L (98-107); Glucose 124 mg/dL (70-105); Osmolality,Calculated 285 (280-300); Potassium 3.4 mEq/L (3.5-5.1); Sodium 136 mEq/L (136-145); eGFR For African Americans > 60 (> 60); eGFR For Non-African Americans > 60 (> 60)
[2020-05-17] MEDS: *HR* Heparin 5,000 UNIT/ML VIAL SQ SCH ×3 (05:25→20:38)
[2020-05-17] MEDS: Ertapenem 1,000 MG in 0.9 % Sodium Chloride Mini Bag 100 ML IVPB SCH (10:24)
[2020-05-17] MEDS: Loratadine 10 MG TABLET PO SCH (10:24)
[2020-05-17] MEDS: Bumetanide 1 MG TABLET PO SCH (20:38)
[2020-05-18] MEDS: Vancomycin 1,500 MG/265 ML IV.SOLN IVPB SCH (02:14)
[2020-05-18 02:35] LABS: Basophils # 0.1 K/mcL (0.0-0.2); Basophils % 0.7 %; Eosinophils # 0.3 K/mcL (0.0-0.6); Hematocrit 33.6 % (37.5-50.1); Hemoglobin 9.9 g/dL (12.9-16.9); Immature Granulocytes % 1.6 % (0-4); Lymphocytes # 2.3 K/mcL (0.6-4.6); Lymphocytes % 20.4 %; Mean Corpuscular HGB Conc 29.5 g/dL (31.6-35.5); Mean Corpuscular Volume 78.1 fL (83.0-100.0); Mean Platelet Volume 10.1 fL (9.4-12.4); Monocytes # 0.8 K/mcL (0.0-1.3); Monocytes % 7.5 %; Neutrophils # 7.5 K/mcL (1.6-8.9); Nucleated Red Blood Cells 0.2 /100 WBC (0); Platelet Count 489 K/mcL (140-400); Red Cell Distribution Width 17.4 % (11.5-14.5); Segmented Neutrophils % 66.8 %; White Blood Count 11.2 K/mcL (4.3-11.1)
[2020-05-18 02:55] LABS: BUN/Creatinine Ratio 25 (6-26); Blood Urea Nitrogen 22 mg/dL (6-20); Calcium 9.2 mg/dL (8.6-10.3); Carbon Dioxide 28 mEq/L (23-29); Chloride 99 mEq/L (98-107); Glucose 129 mg/dL (70-105); Osmolality,Calculated 287 (280-300); Potassium 3.7 mEq/L (3.5-5.1); Sodium 136 mEq/L (136-145); eGFR For African Americans > 60 (> 60); eGFR For Non-African Americans > 60 (> 60)
[2020-05-18] MEDS: *HR* Heparin 5,000 UNIT/ML VIAL SQ SCH ×3 (05:24→21:07)
[2020-05-18] MEDS: Ertapenem 1,000 MG in 0.9 % Sodium Chloride Mini Bag 100 ML IVPB SCH (08:02)
[2020-05-18] MEDS: Loratadine 10 MG TABLET PO SCH (08:02)
[2020-05-18] MEDS ORDERED: Heparin 1,000 UNITS/500 mL 500 ML ONE (13:19)
[2020-05-18] MEDS ORDERED: *HR* FentaNYL (PF) 100 MCG/2 ML VIAL IVP ONE (13:44)
[2020-05-18] MEDS ORDERED: 0.9 % Sodium Chloride 500 ML ONE (13:48)
[2020-05-18] MEDS: Vancomycin 1,250 MG/262.5 ML IV.SOLN IVPB SCH (14:32)
[2020-05-18] MEDS: Bumetanide 1 MG TABLET PO SCH (21:07)
[2020-05-19] MEDS: Vancomycin 1,250 MG/262.5 ML IV.SOLN IVPB SCH (01:35)
[2020-05-19] MEDS: *HR* Heparin 5,000 UNIT/ML VIAL SQ SCH (05:55)
[2020-05-19] MEDS: Ertapenem 1,000 MG in 0.9 % Sodium Chloride Mini Bag 100 ML IVPB SCH (08:29)
[2020-05-19] MEDS: Loratadine 10 MG TABLET PO SCH (08:29)
[2020-05-19 09:57] VITALS: BP 116/76
== END 2020-05-19 11:53 | disposition home health service (06) | DRG 872 ==
LOC: EMEROOARM 12:06 → 2NENU 12:06 → SUATTDRO 18:12 → 2NENU 19:30 → 3ANU 05-13 21:06
PROVIDERS: ADMIT Internal Medicine; ATTEND Student in an Organized Health Care Education/Training Program

== ENCOUNTER 2020-05-29 14:42 | Inpatient (IN) ==
[2020-05-29 18:00] LABS: Basophils # 0.1 K/mcL (0.0-0.2); Basophils % 0.9 %; Eosinophils # 0.1 K/mcL (0.0-0.6); Eosinophils % 0.9 %; Hematocrit 37.7 % (37.5-50.1); Immature Granulocytes % 0.2 % (0-4); Lymphocytes # 1.4 K/mcL (0.6-4.6); Lymphocytes % 10.7 %; Mean Corpuscular HGB Conc 29.2 g/dL (31.6-35.5); Mean Corpuscular Volume 78.9 fL (83.0-100.0); Mean Platelet Volume 10.1 fL (9.4-12.4); Monocytes # 1.3 K/mcL (0.0-1.3); Monocytes % 9.9 %; Neutrophils # 9.9 K/mcL (1.6-8.9); Platelet Count 352 K/mcL (140-400); Red Blood Count 4.78 M/mcL (4.19-5.50); Red Cell Distribution Width 17.2 % (11.5-14.5); Segmented Neutrophils % 77.4 %; White Blood Count 12.8 K/mcL (4.3-11.1)
[2020-05-29 18:14] LABS: Alanine Aminotransferase 9 Units/L (7-52); Albumin 3.4 g/dL (3.5-5.7); Albumin/Globulin Ratio 0.7 (1.1-2.2); Alkaline Phosphatase 82 Units/L (34-104); Aspartate Amino Transferase 13 Units/L (13-39); BUN/Creatinine Ratio 11 (6-26); Bilirubin,Total 0.7 mg/dL (0.3-1.0); Blood Urea Nitrogen 9 mg/dL (6-20); Carbon Dioxide 21 mEq/L (23-29); Chloride 102 mEq/L (98-107); Glucose 112 mg/dL (70-105); Osmolality,Calculated 279 (280-300); Potassium 3.7 mEq/L (3.5-5.1); Sodium 135 mEq/L (136-145); Total Protein 8.4 g/dL (6.4-8.9); eGFR For African Americans > 60 (> 60); eGFR For Non-African Americans > 60 (> 60)
[2020-05-29] MEDS ORDERED: Naloxone 0.4 MG/ML INJ IVP PRN (20:58)
[2020-05-29] MEDS ORDERED: D5% in Water 1,000 ML IVC PRN (20:59)
[2020-05-29] MEDS ORDERED: *HR* Dextrose 50 % in Water (Vial) 50 ML VIAL IVP PRN (20:59)
[2020-05-29] MEDS ORDERED: Dextrose Gel 15 GM/37.5 ML TUBE PO PRN ×2 (20:59)
[2020-05-29] MEDS ORDERED: Nystatin POWDER 30 GM BOTTLE TP PRN (21:21)
[2020-05-29] MEDS: Insulin LISPRO 300 UNITS/3 ML VIAL SQ SCH (21:49)
[2020-05-30] MEDS: Bumetanide 1 MG TABLET PO SCH ×2 (00:28→20:59)
[2020-05-30] MEDS: Piperacillin/Tazobactam 3.375 GM in 0.9 % Sodium Chloride Mini Bag 100 ML IVPB SCH ×4 (00:31→23:52)
[2020-05-30 04:33] LABS: Hematocrit 27.5 % (37.5-50.1); Mean Corpuscular HGB Conc 30.2 g/dL (31.6-35.5); Mean Corpuscular Hemoglobin 23.4 pg (28.0-33.3); Mean Corpuscular Volume 77.5 fL (83.0-100.0); Mean Platelet Volume 9.8 fL (9.4-12.4); Platelet Count 411 K/mcL (140-400); Red Blood Count 3.55 M/mcL (4.19-5.50); Red Cell Distribution Width 17.2 % (11.5-14.5); White Blood Count 9.3 K/mcL (4.3-11.1)
[2020-05-30 04:34] LABS: Hemoglobin 8.3 g/dL (12.9-16.9)
[2020-05-30 04:55] LABS: BUN/Creatinine Ratio 11 (6-26); Blood Urea Nitrogen 9 mg/dL (6-20); Calcium 8.3 mg/dL (8.6-10.3); Carbon Dioxide 25 mEq/L (23-29); Chloride 103 mEq/L (98-107); Glucose 114 mg/dL (70-105); Magnesium 1.8 mg/dL (1.6-2.6); Osmolality,Calculated 280 (280-300); Phosphorous 2.7 mg/dL (2.7-4.5); Potassium 3.3 mEq/L (3.5-5.1); Sodium 135 mEq/L (136-145); eGFR For African Americans > 60 (> 60); eGFR For Non-African Americans > 60 (> 60)
[2020-05-30] MEDS: *HR* Heparin 5,000 UNIT/ML VIAL SQ SCH ×2 (05:48→17:17)
[2020-05-30 07:01] LABS: Estimated Average Glucose 157 mg/dl
[2020-05-30] MEDS: Insulin LISPRO 300 UNITS/3 ML VIAL SQ SCH ×4 (08:51→22:32)
[2020-05-30] MEDS: Loratadine 10 MG TABLET PO SCH (09:02)
[2020-05-30 15:01] LABS: C-Reactive Protein 196 mg/L (Less than 10)
[2020-05-30] MEDS: Vancomycin 1,750 MG/517.5 ML IV.SOLN IVPB SCH (17:17)
[2020-05-31] MEDS: Vancomycin 1,750 MG/517.5 ML IV.SOLN IVPB SCH ×2 (03:41→15:12)
[2020-05-31 04:03] LABS: Basophils # 0.1 K/mcL (0.0-0.2); Eosinophils # 0.2 K/mcL (0.0-0.6); Eosinophils % 2.6 %; Hematocrit 25.3 % (37.5-50.1); Hemoglobin 7.5 g/dL (12.9-16.9); Immature Granulocytes % 0.2 % (0-4); Lymphocytes # 1.6 K/mcL (0.6-4.6); Lymphocytes % 17.9 %; Mean Corpuscular HGB Conc 29.6 g/dL (31.6-35.5); Mean Corpuscular Hemoglobin 23.1 pg (28.0-33.3); Mean Corpuscular Volume 77.8 fL (83.0-100.0); Mean Platelet Volume 9.9 fL (9.4-12.4); Monocytes # 0.9 K/mcL (0.0-1.3); Monocytes % 9.6 %; Neutrophils # 6.2 K/mcL (1.6-8.9); Platelet Count 378 K/mcL (140-400); Red Blood Count 3.25 M/mcL (4.19-5.50); Red Cell Distribution Width 17.1 % (11.5-14.5); Segmented Neutrophils % 68.7 %; White Blood Count 9.1 K/mcL (4.3-11.1)
[2020-05-31] MEDS: *HR* Heparin 5,000 UNIT/ML VIAL SQ SCH ×2 (05:36→18:04)
[2020-05-31 06:13] LABS: BUN/Creatinine Ratio 13 (6-26); Blood Urea Nitrogen 13 mg/dL (6-20); Calcium 8.2 mg/dL (8.6-10.3); Carbon Dioxide 26 mEq/L (23-29); Chloride 102 mEq/L (98-107); Glucose 149 mg/dL (70-105); Osmolality,Calculated 283 (280-300); Potassium 3.4 mEq/L (3.5-5.1); Sodium 135 mEq/L (136-145); eGFR For African Americans > 60 (> 60); eGFR For Non-African Americans > 60 (> 60)
[2020-05-31] MEDS: Piperacillin/Tazobactam 3.375 GM in 0.9 % Sodium Chloride Mini Bag 100 ML IVPB SCH ×2 (08:25→16:24)
[2020-05-31] MEDS: Insulin LISPRO 300 UNITS/3 ML VIAL SQ SCH ×4 (08:26→20:06)
[2020-05-31] MEDS: Loratadine 10 MG TABLET PO SCH (08:27)
[2020-05-31] MEDS: Cholecalciferol (D-3) 1,000 UNIT (25MCG) TABLET PO SCH (08:27)
[2020-05-31] MEDS ORDERED: Iron Dextran Complex 1,000 MG in 0.9 % Sodium Chloride 500 ML IVPB ONE (13:30)
[2020-05-31] MEDS ORDERED: *HR* Alteplase (Cathflo) 2 MG VIAL IVP ONE (15:35)
[2020-05-31] MEDS: Bumetanide 1 MG TABLET PO SCH (20:04)
[2020-06-01] MEDS: Piperacillin/Tazobactam 3.375 GM in 0.9 % Sodium Chloride Mini Bag 100 ML IVPB SCH ×4 (00:43→23:05)
[2020-06-01 03:11] LABS: BUN/Creatinine Ratio 16 (6-26); Blood Urea Nitrogen 13 mg/dL (6-20); Calcium 8.4 mg/dL (8.6-10.3); Carbon Dioxide 25 mEq/L (23-29); Chloride 100 mEq/L (98-107); Glucose 118 mg/dL (70-105); Osmolality,Calculated 283 (280-300); Potassium 3.4 mEq/L (3.5-5.1); Sodium 136 mEq/L (136-145); eGFR For African Americans > 60 (> 60); eGFR For Non-African Americans > 60 (> 60)
[2020-06-01 04:17] LABS: Basophils # 0.1 K/mcL (0.0-0.2); Basophils % 0.5 %; Eosinophils # 0.3 K/mcL (0.0-0.6); Hematocrit 28.5 % (37.5-50.1); Hemoglobin 8.4 g/dL (12.9-16.9); Immature Granulocytes % 0.3 % (0-4); Lymphocytes # 2.2 K/mcL (0.6-4.6); Lymphocytes % 23.1 %; Mean Corpuscular HGB Conc 29.5 g/dL (31.6-35.5); Mean Corpuscular Hemoglobin 22.3 pg (28.0-33.3); Mean Platelet Volume 9.9 fL (9.4-12.4); Monocytes # 0.9 K/mcL (0.0-1.3); Neutrophils # 5.9 K/mcL (1.6-8.9); Platelet Count 409 K/mcL (140-400); Red Blood Count 3.76 M/mcL (4.19-5.50); Segmented Neutrophils % 63.1 %; White Blood Count 9.3 K/mcL (4.3-11.1)
[2020-06-01 04:22] LABS: Mean Corpuscular Volume 75.8 fL (83.0-100.0)
[2020-06-01] MEDS: *HR* Heparin 5,000 UNIT/ML VIAL SQ SCH ×2 (05:34→17:09)
[2020-06-01] MEDS: Vancomycin 1,500 MG/265 ML IV.SOLN IVPB SCH ×2 (07:10→19:37)
[2020-06-01] MEDS: Insulin LISPRO 300 UNITS/3 ML VIAL SQ SCH ×4 (08:49→20:00)
[2020-06-01] MEDS ORDERED: Potassium Chloride 40 MEQ, Lidocaine 1% 2 ML in 0.9 % Sodium Chloride 500 ML IVPB ONE (10:46)
[2020-06-01 14:06] LABS: Magnesium 1.7 mg/dL (1.6-2.6)
[2020-06-01] MEDS: Loratadine 10 MG TABLET PO SCH (14:24)
[2020-06-01] MEDS: Cholecalciferol (D-3) 1,000 UNIT (25MCG) TABLET PO SCH (14:25)
[2020-06-01] MEDS: Silvasorb 44.4 ML TUBE TP SCH (17:16)
[2020-06-01] MEDS: Bumetanide 1 MG TABLET PO SCH (19:48)
[2020-06-02 03:55] LABS: Red Cell Distribution Width 17.2 % (11.5-14.5)
[2020-06-02 03:56] LABS: Basophils # 0.1 K/mcL (0.0-0.2); Basophils % 0.7 %; Eosinophils # 0.4 K/mcL (0.0-0.6); Eosinophils % 4.6 %; Hematocrit 28.7 % (37.5-50.1); Hemoglobin 8.6 g/dL (12.9-16.9); Immature Granulocytes % 0.5 % (0-4); Lymphocytes # 1.8 K/mcL (0.6-4.6); Lymphocytes % 22.1 %; Mean Corpuscular Hemoglobin 23.2 pg (28.0-33.3); Mean Corpuscular Volume 77.6 fL (83.0-100.0); Mean Platelet Volume 9.4 fL (9.4-12.4); Monocytes # 0.8 K/mcL (0.0-1.3); Neutrophils # 5.2 K/mcL (1.6-8.9); Platelet Count 410 K/mcL (140-400); Segmented Neutrophils % 62.1 %; White Blood Count 8.3 K/mcL (4.3-11.1)
[2020-06-02 04:15] LABS: BUN/Creatinine Ratio 12 (6-26); Blood Urea Nitrogen 12 mg/dL (6-20); Calcium 9.1 mg/dL (8.6-10.3); Carbon Dioxide 27 mEq/L (23-29); Chloride 99 mEq/L (98-107); Glucose 117 mg/dL (70-105); Osmolality,Calculated 279 (280-300); Potassium 3.7 mEq/L (3.5-5.1); Sodium 134 mEq/L (136-145); eGFR For African Americans > 60 (> 60); eGFR For Non-African Americans > 60 (> 60)
[2020-06-02 05:18] LABS: Polychromasia 1+ (Not Present)
[2020-06-02 05:19] LABS: Hypochromasia Present (Not Present); Platelet Estimate Normal (Normal)
[2020-06-02] MEDS: Vancomycin 1,500 MG/265 ML IV.SOLN IVPB SCH (05:46)
[2020-06-02] MEDS: *HR* Heparin 5,000 UNIT/ML VIAL SQ SCH ×2 (05:47→17:29)
[2020-06-02] MEDS: Piperacillin/Tazobactam 3.375 GM in 0.9 % Sodium Chloride Mini Bag 100 ML IVPB SCH ×3 (08:07→23:39)
[2020-06-02] MEDS: Loratadine 10 MG TABLET PO SCH (08:08)
[2020-06-02] MEDS: Cholecalciferol (D-3) 1,000 UNIT (25MCG) TABLET PO SCH (08:09)
[2020-06-02] MEDS: Insulin LISPRO 300 UNITS/3 ML VIAL SQ SCH ×4 (08:15→20:24)
[2020-06-02] MEDS: Silvasorb 44.4 ML TUBE TP SCH (08:16)
[2020-06-02] MEDS: Bumetanide 1 MG TABLET PO SCH (20:32)
[2020-06-03 04:02] LABS: BUN/Creatinine Ratio 15 (6-26); Blood Urea Nitrogen 15 mg/dL (6-20); Calcium 9.2 mg/dL (8.6-10.3); Carbon Dioxide 28 mEq/L (23-29); Chloride 99 mEq/L (98-107); Glucose 126 mg/dL (70-105); Osmolality,Calculated 282 (280-300); Potassium 3.6 mEq/L (3.5-5.1); Sodium 135 mEq/L (136-145); eGFR For African Americans > 60 (> 60); eGFR For Non-African Americans > 60 (> 60)
[2020-06-03 04:14] LABS: Basophils # 0.1 K/mcL (0.0-0.2); Basophils % 0.7 %; Eosinophils # 0.4 K/mcL (0.0-0.6); Eosinophils % 4.4 %; Hematocrit 31.8 % (37.5-50.1); Hemoglobin 9.4 g/dL (12.9-16.9); Immature Granulocytes % 0.6 % (0-4); Lymphocytes % 23.6 %; Mean Corpuscular HGB Conc 29.6 g/dL (31.6-35.5); Mean Corpuscular Hemoglobin 23.2 pg (28.0-33.3); Mean Corpuscular Volume 78.5 fL (83.0-100.0); Mean Platelet Volume 9.5 fL (9.4-12.4); Monocytes # 0.7 K/mcL (0.0-1.3); Monocytes % 8.4 %; Neutrophils # 5.2 K/mcL (1.6-8.9); Platelet Count 445 K/mcL (140-400); Red Blood Count 4.05 M/mcL (4.19-5.50); Red Cell Distribution Width 17.6 % (11.5-14.5); Segmented Neutrophils % 62.3 %; White Blood Count 8.4 K/mcL (4.3-11.1)
[2020-06-03] MEDS: *HR* Heparin 5,000 UNIT/ML VIAL SQ SCH ×2 (05:36→17:25)
[2020-06-03] MEDS: Cholecalciferol (D-3) 1,000 UNIT (25MCG) TABLET PO SCH (08:45)
[2020-06-03] MEDS: Insulin LISPRO 300 UNITS/3 ML VIAL SQ SCH ×4 (08:45→21:10)
[2020-06-03] MEDS: Loratadine 10 MG TABLET PO SCH (08:45)
[2020-06-03] MEDS: Piperacillin/Tazobactam 3.375 GM in 0.9 % Sodium Chloride Mini Bag 100 ML IVPB SCH ×3 (08:47→23:38)
[2020-06-03] MEDS: Silvasorb 44.4 ML TUBE TP SCH (11:54)
[2020-06-03] MEDS: Bumetanide 1 MG TABLET PO SCH (20:56)
[2020-06-04 04:05] LABS: Basophils # 0.1 K/mcL (0.0-0.2); Basophils % 0.7 %; Eosinophils # 0.4 K/mcL (0.0-0.6); Eosinophils % 4.3 %; Hematocrit 32.4 % (37.5-50.1); Hemoglobin 9.5 g/dL (12.9-16.9); Immature Granulocytes % 0.7 % (0-4); Lymphocytes # 2.2 K/mcL (0.6-4.6); Lymphocytes % 22.2 %; Mean Corpuscular HGB Conc 29.3 g/dL (31.6-35.5); Mean Corpuscular Hemoglobin 23.1 pg (28.0-33.3); Mean Corpuscular Volume 78.8 fL (83.0-100.0); Mean Platelet Volume 9.5 fL (9.4-12.4); Monocytes # 0.7 K/mcL (0.0-1.3); Monocytes % 6.9 %; Neutrophils # 6.3 K/mcL (1.6-8.9); Platelet Count 438 K/mcL (140-400); Red Blood Count 4.11 M/mcL (4.19-5.50); Red Cell Distribution Width 18.8 % (11.5-14.5); Segmented Neutrophils % 65.2 %; White Blood Count 9.7 K/mcL (4.3-11.1)
[2020-06-04 04:25] LABS: BUN/Creatinine Ratio 17 (6-26); Blood Urea Nitrogen 18 mg/dL (6-20); Calcium 9.1 mg/dL (8.6-10.3); Carbon Dioxide 27 mEq/L (23-29); Chloride 99 mEq/L (98-107); Glucose 119 mg/dL (70-105); Osmolality,Calculated 283 (280-300); Potassium 3.5 mEq/L (3.5-5.1); Sodium 135 mEq/L (136-145); eGFR For African Americans > 60 (> 60); eGFR For Non-African Americans > 60 (> 60)
[2020-06-04] MEDS: *HR* Heparin 5,000 UNIT/ML VIAL SQ SCH ×2 (05:24→16:54)
[2020-06-04] MEDS: Insulin LISPRO 300 UNITS/3 ML VIAL SQ SCH ×4 (09:45→21:20)
[2020-06-04] MEDS: Silvasorb 44.4 ML TUBE TP SCH (10:00)
[2020-06-04] MEDS: Cholecalciferol (D-3) 1,000 UNIT (25MCG) TABLET PO SCH (10:00)
[2020-06-04] MEDS: Piperacillin/Tazobactam 3.375 GM in 0.9 % Sodium Chloride Mini Bag 100 ML IVPB SCH ×2 (10:00→16:58)
[2020-06-04] MEDS: Loratadine 10 MG TABLET PO SCH (10:00)
[2020-06-04] MEDS: Bumetanide 1 MG TABLET PO SCH (21:20)
[2020-06-05] MEDS: Piperacillin/Tazobactam 3.375 GM in 0.9 % Sodium Chloride Mini Bag 100 ML IVPB SCH ×4 (00:06→23:28)
[2020-06-05] MEDS: *HR* Heparin 5,000 UNIT/ML VIAL SQ SCH ×2 (05:12→18:27)
[2020-06-05] MEDS: Cholecalciferol (D-3) 1,000 UNIT (25MCG) TABLET PO SCH (13:02)
[2020-06-05] MEDS: Loratadine 10 MG TABLET PO SCH (13:03)
[2020-06-05] MEDS: Insulin LISPRO 300 UNITS/3 ML VIAL SQ SCH ×4 (13:11→20:20)
[2020-06-05] MEDS: Silvasorb 44.4 ML TUBE TP SCH (14:23)
[2020-06-05] MEDS: Bumetanide 1 MG TABLET PO SCH (20:25)
[2020-06-06] MEDS: *HR* Heparin 5,000 UNIT/ML VIAL SQ SCH ×2 (05:39→18:56)
[2020-06-06] MEDS: Insulin LISPRO 300 UNITS/3 ML VIAL SQ SCH ×4 (08:20→20:23)
[2020-06-06] MEDS: Piperacillin/Tazobactam 3.375 GM in 0.9 % Sodium Chloride Mini Bag 100 ML IVPB SCH ×2 (08:25→16:25)
[2020-06-06] MEDS: Loratadine 10 MG TABLET PO SCH (08:25)
[2020-06-06] MEDS: Cholecalciferol (D-3) 1,000 UNIT (25MCG) TABLET PO SCH (08:25)
[2020-06-06] MEDS: Silvasorb 44.4 ML TUBE TP SCH (08:26)
[2020-06-06] MEDS: Bumetanide 1 MG TABLET PO SCH (20:23)
[2020-06-07] MEDS: Piperacillin/Tazobactam 3.375 GM in 0.9 % Sodium Chloride Mini Bag 100 ML IVPB SCH ×4 (01:32→23:24)
[2020-06-07 02:36] LABS: Basophils # 0.1 K/mcL (0.0-0.2); Basophils % 0.5 %; Eosinophils # 0.5 K/mcL (0.0-0.6); Eosinophils % 4.5 %; Hematocrit 32.6 % (37.5-50.1); Hemoglobin 9.5 g/dL (12.9-16.9); Immature Granulocytes % 0.7 % (0-4); Lymphocytes # 2.2 K/mcL (0.6-4.6); Lymphocytes % 20.8 %; Mean Corpuscular HGB Conc 29.1 g/dL (31.6-35.5); Mean Corpuscular Hemoglobin 23.1 pg (28.0-33.3); Mean Corpuscular Volume 79.3 fL (83.0-100.0); Monocytes # 0.7 K/mcL (0.0-1.3); Monocytes % 6.8 %; Neutrophils # 7.1 K/mcL (1.6-8.9); Platelet Count 403 K/mcL (140-400); Red Blood Count 4.11 M/mcL (4.19-5.50); Red Cell Distribution Width 19.9 % (11.5-14.5); Segmented Neutrophils % 66.7 %; White Blood Count 10.6 K/mcL (4.3-11.1)
[2020-06-07] MEDS: *HR* Heparin 5,000 UNIT/ML VIAL SQ SCH ×2 (06:13→17:13)
[2020-06-07] MEDS: Cholecalciferol (D-3) 1,000 UNIT (25MCG) TABLET PO SCH (08:36)
[2020-06-07] MEDS: Loratadine 10 MG TABLET PO SCH (08:36)
[2020-06-07] MEDS: Insulin LISPRO 300 UNITS/3 ML VIAL SQ SCH ×4 (08:37→20:59)
[2020-06-07] MEDS ORDERED: *HR* Alteplase (Cathflo) 2 MG VIAL IVP ONE (08:58)
[2020-06-07] MEDS: Silvasorb 44.4 ML TUBE TP SCH (13:55)
[2020-06-07] MEDS: Bumetanide 1 MG TABLET PO SCH (20:57)
[2020-06-08] MEDS: *HR* Heparin 5,000 UNIT/ML VIAL SQ SCH ×2 (05:32→17:15)
[2020-06-08] MEDS: Piperacillin/Tazobactam 3.375 GM in 0.9 % Sodium Chloride Mini Bag 100 ML IVPB SCH ×3 (09:27→23:29)
[2020-06-08] MEDS: Loratadine 10 MG TABLET PO SCH (09:27)
[2020-06-08] MEDS: Cholecalciferol (D-3) 1,000 UNIT (25MCG) TABLET PO SCH (09:27)
[2020-06-08] MEDS: Silvasorb 44.4 ML TUBE TP SCH (09:28)
[2020-06-08] MEDS: Insulin LISPRO 300 UNITS/3 ML VIAL SQ SCH ×4 (09:28→21:31)
[2020-06-08] MEDS: Bumetanide 1 MG TABLET PO SCH (21:35)
[2020-06-09] MEDS: *HR* Heparin 5,000 UNIT/ML VIAL SQ SCH ×2 (06:00→16:54)
[2020-06-09] MEDS: Insulin LISPRO 300 UNITS/3 ML VIAL SQ SCH ×3 (08:44→16:54)
[2020-06-09] MEDS: Piperacillin/Tazobactam 3.375 GM in 0.9 % Sodium Chloride Mini Bag 100 ML IVPB SCH ×2 (08:45→16:54)
[2020-06-09] MEDS: Loratadine 10 MG TABLET PO SCH (08:45)
[2020-06-09] MEDS: Cholecalciferol (D-3) 1,000 UNIT (25MCG) TABLET PO SCH (08:46)
[2020-06-09] MEDS: Silvasorb 44.4 ML TUBE TP SCH (12:53)
[2020-06-09 14:50] VITALS: BP 103/68
== END 2020-06-09 18:29 | disposition other institution (70) | DRG 871 ==
LOC: EMEROOARM 14:42 → 3ANU 14:42 → SUATTDRO 19:47 → 3ANU 20:17 → SUATTDRO 05-31 13:02
PROVIDERS: ADMIT Internal Medicine; ATTEND Internal Medicine

== ENCOUNTER 2020-07-03 14:04 | Inpatient (IN) ==
[2020-07-03 15:51] LABS: Basophils # 0.1 K/mcL (0.0-0.2); Basophils % 0.7 %; Eosinophils # 0.3 K/mcL (0.0-0.6); Eosinophils % 4.1 %; Hematocrit 38.4 % (37.5-50.1); Hemoglobin 11.3 g/dL (12.9-16.9); Immature Granulocytes % 0.1 % (0-4); Lymphocytes # 1.5 K/mcL (0.6-4.6); Lymphocytes % 21.5 %; Mean Corpuscular HGB Conc 29.4 g/dL (31.6-35.5); Mean Corpuscular Hemoglobin 24.4 pg (28.0-33.3); Mean Corpuscular Volume 82.8 fL (83.0-100.0); Mean Platelet Volume 10.3 fL (9.4-12.4); Monocytes # 0.5 K/mcL (0.0-1.3); Monocytes % 7.2 %; Neutrophils # 4.7 K/mcL (1.6-8.9); Platelet Count 318 K/mcL (140-400); Red Blood Count 4.64 M/mcL (4.19-5.50); Segmented Neutrophils % 66.4 %; White Blood Count 7.1 K/mcL (4.3-11.1)
[2020-07-03 16:15] LABS: BUN/Creatinine Ratio 12 (6-26); Blood Urea Nitrogen 8 mg/dL (6-20); Calcium 9.1 mg/dL (8.6-10.3); Carbon Dioxide 24 mEq/L (23-29); Chloride 104 mEq/L (98-107); Glucose 108 mg/dL (70-105); Osmolality,Calculated 281 (280-300); Potassium 3.8 mEq/L (3.5-5.1); Sodium 136 mEq/L (136-145); eGFR For African Americans > 60 (> 60); eGFR For Non-African Americans > 60 (> 60)
[2020-07-03] MEDS ORDERED: Vancomycin 1,750 MG/517.5 ML IV.SOLN IVPB ONE (17:09)
[2020-07-03] MEDS ORDERED: Piperacillin/Tazobactam 3.375 GM in 0.9 % Sodium Chloride Mini Bag 100 ML IVPB ONE ×2 (17:09→17:39)
[2020-07-03] MEDS ORDERED: Naloxone 0.4 MG/ML INJ IVP PRN (17:37)
[2020-07-03] MEDS ORDERED: Isovue-370 500 ML BOTTLE IVP ONE (17:47)
[2020-07-03] MEDS ORDERED: Vancomycin 1,750 MG in 0.9 % Sodium Chloride 250 ML IVPB SCH (18:00)
[2020-07-03] MEDS: *HR* Heparin 5,000 UNIT/ML VIAL SQ SCH (18:00)
[2020-07-03] MEDS: Bumetanide 1 MG TABLET PO SCH (21:57)
[2020-07-04 04:53] LABS: Basophils # 0.1 K/mcL (0.0-0.2); Eosinophils # 0.3 K/mcL (0.0-0.6); Eosinophils % 4.2 %; Hematocrit 34.4 % (37.5-50.1); Hemoglobin 10.3 g/dL (12.9-16.9); Immature Granulocytes % 0.2 % (0-4); Lymphocytes # 1.5 K/mcL (0.6-4.6); Lymphocytes % 24.5 %; Mean Corpuscular HGB Conc 29.9 g/dL (31.6-35.5); Mean Corpuscular Hemoglobin 25.1 pg (28.0-33.3); Mean Corpuscular Volume 83.7 fL (83.0-100.0); Mean Platelet Volume 10.3 fL (9.4-12.4); Monocytes # 0.6 K/mcL (0.0-1.3); Monocytes % 9.3 %; Neutrophils # 3.7 K/mcL (1.6-8.9); Platelet Count 290 K/mcL (140-400); Red Blood Count 4.11 M/mcL (4.19-5.50); Red Cell Distribution Width 22.1 % (11.5-14.5); Segmented Neutrophils % 60.8 %; White Blood Count 6.1 K/mcL (4.3-11.1)
[2020-07-04 05:15] LABS: BUN/Creatinine Ratio 9 (6-26); Blood Urea Nitrogen 6 mg/dL (6-20); Calcium 8.9 mg/dL (8.6-10.3); Carbon Dioxide 27 mEq/L (23-29); Chloride 102 mEq/L (98-107); Glucose 112 mg/dL (70-105); Osmolality,Calculated 282 (280-300); Potassium 3.2 mEq/L (3.5-5.1); Sodium 137 mEq/L (136-145); eGFR For African Americans > 60 (> 60); eGFR For Non-African Americans > 60 (> 60)
[2020-07-04] MEDS: Vancomycin 1,750 MG/517.5 ML IV.SOLN IVPB SCH ×2 (06:02→18:12)
[2020-07-04] MEDS: *HR* Heparin 5,000 UNIT/ML VIAL SQ SCH ×2 (06:02→19:02)
[2020-07-04] MEDS: Piperacillin/Tazobactam 3.375 GM in 0.9 % Sodium Chloride Mini Bag 100 ML IVPB SCH ×3 (09:33→23:27)
[2020-07-04] MEDS ORDERED: Silver Sulfadiazine 50 GM TUBE TP PRN (10:35)
[2020-07-04] MEDS ORDERED: Nystatin POWDER 30 GM BOTTLE TP PRN (10:35)
[2020-07-04] MEDS: Loratadine 10 MG TABLET PO SCH (12:25)
[2020-07-04] MEDS: Bumetanide 1 MG TABLET PO SCH (21:07)
[2020-07-05 04:39] LABS: BUN/Creatinine Ratio 13 (6-26); Blood Urea Nitrogen 12 mg/dL (6-20); Calcium 8.4 mg/dL (8.6-10.3); Carbon Dioxide 22 mEq/L (23-29); Chloride 105 mEq/L (98-107); Glucose 122 mg/dL (70-105); Magnesium 1.7 mg/dL (1.6-2.6); Osmolality,Calculated 285 (280-300); Phosphorous 3.1 mg/dL (2.7-4.5); Potassium 3.9 mEq/L (3.5-5.1); Sodium 137 mEq/L (136-145); eGFR For African Americans > 60 (> 60); eGFR For Non-African Americans > 60 (> 60)
[2020-07-05] MEDS: Vancomycin 1,750 MG/517.5 ML IV.SOLN IVPB SCH ×2 (05:26→17:41)
[2020-07-05] MEDS: *HR* Heparin 5,000 UNIT/ML VIAL SQ SCH ×2 (05:29→17:40)
[2020-07-05 05:30] LABS: Basophils # 0.1 K/mcL (0.0-0.2); Basophils % 0.8 %; Eosinophils # 0.3 K/mcL (0.0-0.6); Eosinophils % 4.7 %; Hematocrit 31.2 % (37.5-50.1); Hemoglobin 9.3 g/dL (12.9-16.9); Immature Granulocytes % 0.3 % (0-4); Lymphocytes # 1.7 K/mcL (0.6-4.6); Lymphocytes % 27.8 %; Mean Corpuscular HGB Conc 29.8 g/dL (31.6-35.5); Mean Corpuscular Hemoglobin 25.2 pg (28.0-33.3); Mean Corpuscular Volume 84.6 fL (83.0-100.0); Mean Platelet Volume 10.6 fL (9.4-12.4); Monocytes # 0.6 K/mcL (0.0-1.3); Monocytes % 9.8 %; Neutrophils # 3.5 K/mcL (1.6-8.9); Platelet Count 247 K/mcL (140-400); Red Blood Count 3.69 M/mcL (4.19-5.50); Red Cell Distribution Width 21.8 % (11.5-14.5); Segmented Neutrophils % 56.6 %; White Blood Count 6.2 K/mcL (4.3-11.1)
[2020-07-05] MEDS: Piperacillin/Tazobactam 3.375 GM in 0.9 % Sodium Chloride Mini Bag 100 ML IVPB SCH ×2 (08:14→15:40)
[2020-07-05] MEDS: Loratadine 10 MG TABLET PO SCH (08:14)
[2020-07-05] MEDS: Bumetanide 1 MG TABLET PO SCH (19:21)
[2020-07-06] MEDS: Piperacillin/Tazobactam 3.375 GM in 0.9 % Sodium Chloride Mini Bag 100 ML IVPB SCH ×3 (00:10→15:17)
[2020-07-06 04:04] LABS: Hematocrit 34.8 % (37.5-50.1); Hemoglobin 10.5 g/dL (12.9-16.9); Mean Corpuscular HGB Conc 30.2 g/dL (31.6-35.5); Mean Corpuscular Hemoglobin 25.4 pg (28.0-33.3); Mean Corpuscular Volume 84.3 fL (83.0-100.0); Mean Platelet Volume 10.2 fL (9.4-12.4); Platelet Count 298 K/mcL (140-400); Red Blood Count 4.13 M/mcL (4.19-5.50); Red Cell Distribution Width 21.8 % (11.5-14.5); White Blood Count 7.8 K/mcL (4.3-11.1)
[2020-07-06 04:24] LABS: BUN/Creatinine Ratio 19 (6-26); Blood Urea Nitrogen 19 mg/dL (6-20); Carbon Dioxide 27 mEq/L (23-29); Chloride 100 mEq/L (98-107); Glucose 120 mg/dL (70-105); Osmolality,Calculated 283 (280-300); Potassium 3.5 mEq/L (3.5-5.1); Sodium 135 mEq/L (136-145); eGFR For African Americans > 60 (> 60); eGFR For Non-African Americans > 60 (> 60)
[2020-07-06] MEDS: *HR* Heparin 5,000 UNIT/ML VIAL SQ SCH ×2 (05:33→17:19)
[2020-07-06] MEDS: Vancomycin 1,750 MG/517.5 ML IV.SOLN IVPB SCH ×2 (05:34→17:19)
[2020-07-06] MEDS: Loratadine 10 MG TABLET PO SCH (08:11)
[2020-07-06] MEDS: Bumetanide 1 MG TABLET PO SCH (20:22)
[2020-07-07] MEDS: Piperacillin/Tazobactam 3.375 GM in 0.9 % Sodium Chloride Mini Bag 100 ML IVPB SCH ×3 (00:11→15:04)
[2020-07-07 04:30] LABS: Hematocrit 35.6 % (37.5-50.1); Hemoglobin 10.8 g/dL (12.9-16.9); Mean Corpuscular HGB Conc 30.3 g/dL (31.6-35.5); Mean Corpuscular Hemoglobin 25.8 pg (28.0-33.3); Platelet Count 311 K/mcL (140-400); Red Blood Count 4.19 M/mcL (4.19-5.50); Red Cell Distribution Width 22.3 % (11.5-14.5)
[2020-07-07 04:54] LABS: BUN/Creatinine Ratio 22 (6-26); Blood Urea Nitrogen 19 mg/dL (6-20); Calcium 9.5 mg/dL (8.6-10.3); Carbon Dioxide 26 mEq/L (23-29); Chloride 102 mEq/L (98-107); Glucose 124 mg/dL (70-105); Osmolality,Calculated 286 (280-300); Potassium 3.6 mEq/L (3.5-5.1); Sodium 136 mEq/L (136-145); eGFR For African Americans > 60 (> 60); eGFR For Non-African Americans > 60 (> 60)
[2020-07-07] MEDS ORDERED: Vancomycin 1,250 MG/262.5 ML IV.SOLN IVPB SCH (05:00)
[2020-07-07] MEDS: *HR* Heparin 5,000 UNIT/ML VIAL SQ SCH ×2 (05:44→17:08)
[2020-07-07] MEDS: Loratadine 10 MG TABLET PO SCH (07:52)
[2020-07-07] MEDS: Bumetanide 1 MG TABLET PO SCH (21:04)
[2020-07-08] MEDS: Piperacillin/Tazobactam 3.375 GM in 0.9 % Sodium Chloride Mini Bag 100 ML IVPB SCH ×2 (00:40→08:11)
[2020-07-08 02:46] LABS: Hemoglobin 10.4 g/dL (12.9-16.9); Mean Corpuscular HGB Conc 30.6 g/dL (31.6-35.5); Mean Corpuscular Hemoglobin 25.2 pg (28.0-33.3); Mean Corpuscular Volume 82.5 fL (83.0-100.0); Mean Platelet Volume 10.6 fL (9.4-12.4); Platelet Count 330 K/mcL (140-400); Red Blood Count 4.12 M/mcL (4.19-5.50); Red Cell Distribution Width 22.3 % (11.5-14.5); White Blood Count 9.4 K/mcL (4.3-11.1)
[2020-07-08 03:07] LABS: BUN/Creatinine Ratio 25 (6-26); Blood Urea Nitrogen 23 mg/dL (6-20); Calcium 9.2 mg/dL (8.6-10.3); Carbon Dioxide 24 mEq/L (23-29); Chloride 101 mEq/L (98-107); Glucose 104 mg/dL (70-105); Osmolality,Calculated 284 (280-300); Potassium 3.9 mEq/L (3.5-5.1); Sodium 135 mEq/L (136-145); eGFR For African Americans > 60 (> 60); eGFR For Non-African Americans > 60 (> 60)
[2020-07-08] MEDS: *HR* Heparin 5,000 UNIT/ML VIAL SQ SCH ×2 (08:10→18:05)
[2020-07-08] MEDS: Loratadine 10 MG TABLET PO SCH (08:11)
[2020-07-08] MEDS ORDERED: Ertapenem 1,000 MG in 0.9 % Sodium Chloride Mini Bag 100 ML IVPB SCH (13:00)
[2020-07-08 14:24] VITALS: BP 115/72
[2020-07-08] MEDS ORDERED: levoFLOXacin 750 MG TABLET PO SCH (15:30)
== END 2020-07-08 19:54 | disposition home health service (06) | DRG 603 ==
LOC: EMEROOARM 14:04 → 3BNU 14:04 → SUATTDRO 17:37 → 3BNU 18:33 → 3ANU 07-04 13:52 → SUATTDRO 07-04 15:11
PROVIDERS: ADMIT Family Medicine; ATTEND Internal Medicine

== ENCOUNTER 2020-07-11 21:04 | Observation (INO) ==
[2020-07-11] MEDS ORDERED: Isovue-370 500 ML BOTTLE IVP ONE (21:46)
[2020-07-11 22:03] LABS: Bacteria,Urine Few per hpf (None-Few); Bilirubin,Urine Negative (Negative); Blood,Urine Small (Negative); Budding Yeast,Urine Moderate per hpf (None Seen); Clarity,Urine Turbid (Clear); Color,Urine Yellow (Yellow); Glucose,Urine (UA) Normal (Normal); Ketones,Urine Negative (Negative); Leukocyte Esterase,Urine Large (Negative); Mucus,Urine Many per lpf (None-Few); Nitrite,Urine Negative (Negative); Protein,Urine 200 mg/dL (Neg-Trace); RBC,Urine 50-100 per hpf (0-3); Specific Gravity,Urine 1.026 (1.010-1.025); WBC,Urine 50-100 per hpf (0-3)
[2020-07-11 22:50] LABS: Basophils # 0.1 K/mcL (0.0-0.2); Basophils % 0.7 %; Eosinophils # 0.3 K/mcL (0.0-0.6); Hematocrit 41.4 % (37.5-50.1); Hemoglobin 12.2 g/dL (12.9-16.9); Immature Granulocytes % 0.3 % (0-4); Lymphocytes # 1.3 K/mcL (0.6-4.6); Lymphocytes % 11.8 %; Mean Corpuscular HGB Conc 29.5 g/dL (31.6-35.5); Mean Corpuscular Hemoglobin 24.9 pg (28.0-33.3); Mean Corpuscular Volume 84.7 fL (83.0-100.0); Monocytes # 0.7 K/mcL (0.0-1.3); Monocytes % 5.9 %; Neutrophils # 8.7 K/mcL (1.6-8.9); Platelet Count 415 K/mcL (140-400); Red Blood Count 4.89 M/mcL (4.19-5.50); Red Cell Distribution Width 22.2 % (11.5-14.5); Segmented Neutrophils % 78.3 %; White Blood Count 11.1 K/mcL (4.3-11.1)
[2020-07-11 22:59] LABS: INR 1.1; Prothrombin Time 12.7 Seconds (9.4-12.1)
[2020-07-11 23:02] LABS: Activated Partial Thrombo Time 35.3 Seconds (26.0-36.0)
[2020-07-11 23:12] LABS: Alanine Aminotransferase 60 Units/L (7-52); Alkaline Phosphatase 79 Units/L (34-104); Aspartate Amino Transferase 32 Units/L (13-39); BUN/Creatinine Ratio 19 (6-26); Bilirubin,Direct 0.1 mg/dL (0.0-0.2); Bilirubin,Indirect 0.3 mg/dL (0.0-1.0); Bilirubin,Total 0.4 mg/dL (0.3-1.0); Blood Urea Nitrogen 17 mg/dL (6-20); Calcium 9.3 mg/dL (8.6-10.3); Carbon Dioxide 24 mEq/L (23-29); Chloride 102 mEq/L (98-107); Globulin 4.1 g/dL (2.4-3.5); Glucose 151 mg/dL (70-105); Lipase 31 Units/L (11-82); Osmolality,Calculated 286 (280-300); Phosphorous 2.5 mg/dL (2.7-4.5); Potassium 3.5 mEq/L (3.5-5.1); Sodium 136 mEq/L (136-145); Total Protein 8.1 g/dL (6.4-8.9); eGFR For African Americans > 60 (> 60); eGFR For Non-African Americans > 60 (> 60)
[2020-07-11 23:15] LABS: Troponin I 1.24 ng/mL (< 0.04)
[2020-07-12] MEDS ORDERED: 0.9 % Sodium Chloride 500 ML IV ONE (00:21)
[2020-07-12] MEDS ORDERED: cefTRIAXone 1,000 MG in 0.9 % Sodium Chloride Mini Bag 100 ML IVPB ONE (00:23)
[2020-07-12 01:57] LABS: Adenovirus Not Detected (Not Detect); Coronavirus 229E Not Detected (Not Detect); Coronavirus HKU1 Not Detected (Not Detect); Coronavirus NL63 Not Detected (Not Detect); Coronavirus OC43 Not Detected (Not Detect)
[2020-07-12 01:58] LABS: Bordetella Pertussis Not Detected (Not Detect); Chlamydophila pneumoniae Not Detected (Not Detect); Human Metapneumovirus Not Detected (Not Detect); Human Rhinovirus/Enterovirus Not Detected (Not Detect); Influenza A Subtype 2009 H1 Not Detected (Not Detect); Influenza B Not Detected (Not Detect); Mycoplasma pneumoniae Not Detected (Not Detect); Parainfluenza Virus 1 Not Detected (Not Detect); Parainfluenza Virus 2 Not Detected (Not Detect); Parainfluenza Virus 3 Not Detected (Not Detect); Parainfluenza Virus 4 Not Detected (Not Detect); Respiratory Syncytial Virus Not Detected (Not Detect)
[2020-07-12] MEDS ORDERED: Naloxone 0.4 MG/ML INJ IVP PRN (03:03)
[2020-07-12 04:09] LABS: Hematocrit 35.1 % (37.5-50.1); Mean Corpuscular HGB Conc 30.2 g/dL (31.6-35.5); Mean Corpuscular Hemoglobin 25.5 pg (28.0-33.3); Mean Corpuscular Volume 84.4 fL (83.0-100.0); Mean Platelet Volume 10.1 fL (9.4-12.4); Platelet Count 386 K/mcL (140-400); Red Blood Count 4.16 M/mcL (4.19-5.50); White Blood Count 8.8 K/mcL (4.3-11.1)
[2020-07-12 04:10] LABS: Hemoglobin 10.6 g/dL (12.9-16.9)
[2020-07-12] MEDS ORDERED: *HR* Dextrose 50 % in Water (Vial) 50 ML VIAL IVP PRN (04:17)
[2020-07-12] MEDS ORDERED: Dextrose Gel 15 GM/37.5 ML TUBE PO PRN ×2 (04:17)
[2020-07-12] MEDS ORDERED: D5% in Water 1,000 ML IVC PRN (04:17)
[2020-07-12 04:35] LABS: BUN/Creatinine Ratio 21 (6-26); Blood Urea Nitrogen 17 mg/dL (6-20); Carbon Dioxide 20 mEq/L (23-29); Chloride 105 mEq/L (98-107); Glucose 124 mg/dL (70-105); Osmolality,Calculated 285 (280-300); Potassium 3.6 mEq/L (3.5-5.1); Sodium 136 mEq/L (136-145); eGFR For African Americans > 60 (> 60); eGFR For Non-African Americans > 60 (> 60)
[2020-07-12] MEDS ORDERED: Ondansetron 4 MG/2 ML VIAL IVP PRN (04:57)
[2020-07-12] MEDS: Ertapenem 1,000 MG in 0.9 % Sodium Chloride Mini Bag 100 ML IVPB SCH (06:10)
[2020-07-12] MEDS: *HR* Heparin 5,000 UNIT/ML VIAL SQ SCH ×2 (06:11→16:33)
[2020-07-12] MEDS: Insulin LISPRO 300 UNITS/3 ML VIAL SQ SCH ×3 (08:18→16:06)
[2020-07-12] MEDS: levoFLOXacin 750 MG/150 ML 750 MG/150 ML BAG IVPB SCH (08:22)
[2020-07-12] MEDS ORDERED: Nystatin POWDER 30 GM BOTTLE TP PRN (12:28)
[2020-07-12] MEDS ORDERED: Bumetanide 1 MG TABLET PO SCH (21:00)
[2020-07-12] MEDS ORDERED: Insulin LISPRO 300 UNITS/3 ML VIAL SQ SCH (21:00)
[2020-07-13] MEDS: Ertapenem 1,000 MG in 0.9 % Sodium Chloride Mini Bag 100 ML IVPB SCH (06:06)
[2020-07-13] MEDS: *HR* Heparin 5,000 UNIT/ML VIAL SQ SCH (06:06)
[2020-07-13 06:58] LABS: BUN/Creatinine Ratio 16 (6-26); Blood Urea Nitrogen 13 mg/dL (6-20); Calcium 8.9 mg/dL (8.6-10.3); Carbon Dioxide 27 mEq/L (23-29); Chloride 102 mEq/L (98-107); Glucose 114 mg/dL (70-105); Osmolality,Calculated 283 (280-300); Potassium 3.4 mEq/L (3.5-5.1); Sodium 136 mEq/L (136-145); Troponin I 1.36 ng/mL (< 0.04); eGFR For African Americans > 60 (> 60); eGFR For Non-African Americans > 60 (> 60)
[2020-07-13 08:21] VITALS: BP 120/70
[2020-07-13] MEDS: Insulin LISPRO 300 UNITS/3 ML VIAL SQ SCH ×2 (08:21→11:50)
[2020-07-13] MEDS: levoFLOXacin 750 MG/150 ML 750 MG/150 ML BAG IVPB SCH (08:30)
[2020-07-13] MEDS ORDERED: Lactobacillus 1 EACH CAP.SPRINK PO SCH (09:00)
[2020-07-13] MEDS ORDERED: Loratadine 10 MG TABLET PO SCH (09:00)
== END 2020-07-13 13:51 | disposition home health service (06) ==
LOC: EMEROOARM 21:04 → 3BNU 21:04 → SUATTDRO 07-12 02:01 → 3BNU 07-12 02:21
PROVIDERS: ADMIT Student in an Organized Health Care Education/Training Program; ATTEND Internal Medicine

== ENCOUNTER 2020-08-17 18:17 | Inpatient (IN) ==
[2020-08-17] MEDS ORDERED: 0.9 % Sodium Chloride 1,000 ML IVC ONE (18:24)
[2020-08-17] MEDS ORDERED: Isovue-370 500 ML BOTTLE IVP ONE (18:38)
[2020-08-17] MEDS ORDERED: Meropenem 1,000 MG in Water for inj. (sterile) 20 ML IVP STA (18:55)
[2020-08-17] MEDS ORDERED: Vancomycin Oral Soln 125 MG/2.5 ML UDC PO STA (18:55)
[2020-08-17 19:43] LABS: Bacteria,Urine Few per hpf (None-Few); Bilirubin,Urine Negative (Negative); Blood,Urine Moderate (Negative); Clarity,Urine Turbid (Clear); Color,Urine Yellow (Yellow); Glucose,Urine (UA) Normal (Normal); Ketones,Urine 10 mg/dL (Negative); Leukocyte Esterase,Urine Large (Negative); Mucus,Urine Few per lpf (None-Few); Nitrite,Urine Negative (Negative); Protein,Urine 70 mg/dL (Neg-Trace); RBC,Urine 15-30 per hpf (0-3); Specific Gravity,Urine 1.021 (1.010-1.025); Squamous Epithelial Cell,Urine Few per hpf (None-Few); WBC,Urine 15-30 per hpf (0-3)
[2020-08-17 20:24] LABS: Basophils % 0.4 %; Eosinophils # 0.4 K/mcL (0.0-0.6); Eosinophils % 4.5 %; Hematocrit 40.8 % (37.5-50.1); Hemoglobin 12.6 g/dL (12.9-16.9); Immature Granulocytes % 0.2 % (0-4); Lymphocytes # 1.4 K/mcL (0.6-4.6); Lymphocytes % 14.5 %; Mean Corpuscular HGB Conc 30.9 g/dL (31.6-35.5); Mean Corpuscular Hemoglobin 26.4 pg (28.0-33.3); Mean Corpuscular Volume 85.5 fL (83.0-100.0); Mean Platelet Volume 10.1 fL (9.4-12.4); Monocytes # 0.6 K/mcL (0.0-1.3); Monocytes % 6.1 %; Neutrophils # 6.9 K/mcL (1.6-8.9); Platelet Count 293 K/mcL (140-400); Red Blood Count 4.77 M/mcL (4.19-5.50); Red Cell Distribution Width 18.3 % (11.5-14.5); Segmented Neutrophils % 74.3 %; White Blood Count 9.3 K/mcL (4.3-11.1)
[2020-08-17 20:44] LABS: Alanine Aminotransferase 25 Units/L (7-52); Albumin 3.9 g/dL (3.5-5.7); Alkaline Phosphatase 78 Units/L (34-104); Aspartate Amino Transferase 19 Units/L (13-39); BUN/Creatinine Ratio 9 (6-26); Bilirubin,Total 0.8 mg/dL (0.3-1.0); Blood Urea Nitrogen 7 mg/dL (6-20); Calcium 9.3 mg/dL (8.6-10.3); Carbon Dioxide 25 mEq/L (23-29); Chloride 103 mEq/L (98-107); Globulin 3.8 g/dL (2.4-3.5); Glucose 100 mg/dL (70-105); Osmolality,Calculated 282 (280-300); Potassium 3.5 mEq/L (3.5-5.1); Sodium 137 mEq/L (136-145); Total Protein 7.7 g/dL (6.4-8.9); eGFR For African Americans > 60 (> 60); eGFR For Non-African Americans > 60 (> 60)
[2020-08-17] MEDS ORDERED: *HR* OxyCODONE Immed Rel 5 MG TABLET PO PRN (23:30)
[2020-08-17] MEDS ORDERED: Naloxone 0.4 MG/ML INJ IVP PRN (23:30)
[2020-08-17] MEDS ORDERED: Acetaminophen 325 MG TABLET PO PRN (23:30)
[2020-08-17] MEDS ORDERED: Ondansetron 4 MG/2 ML VIAL IVP PRN (23:30)
[2020-08-17] MEDS ORDERED: *HR* HYDROcodone/Acet 5/325 mg TABLET PO PRN (23:30)
[2020-08-18] MEDS ORDERED: Dextrose Gel 15 GM/37.5 ML TUBE PO PRN ×2 (00:58)
[2020-08-18] MEDS ORDERED: *HR* Dextrose 50 % in Water (Vial) 50 ML VIAL IVP PRN (00:58)
[2020-08-18] MEDS ORDERED: D5% in Water 1,000 ML IVC PRN (00:58)
[2020-08-18 03:33] LABS: INR 1.2; Prothrombin Time 13.4 Seconds (9.4-12.1)
[2020-08-18 03:40] LABS: Basophils % 0.6 %; Eosinophils # 0.5 K/mcL (0.0-0.6); Eosinophils % 8.7 %; Hematocrit 37.9 % (37.5-50.1); Hemoglobin 11.4 g/dL (12.9-16.9); Immature Granulocytes % 0.2 % (0-4); Lymphocytes # 1.5 K/mcL (0.6-4.6); Lymphocytes % 23.5 %; Mean Corpuscular HGB Conc 30.1 g/dL (31.6-35.5); Mean Corpuscular Hemoglobin 25.8 pg (28.0-33.3); Mean Corpuscular Volume 85.7 fL (83.0-100.0); Mean Platelet Volume 10.5 fL (9.4-12.4); Monocytes # 0.5 K/mcL (0.0-1.3); Monocytes % 8.2 %; Neutrophils # 3.6 K/mcL (1.6-8.9); Platelet Count 257 K/mcL (140-400); Red Blood Count 4.42 M/mcL (4.19-5.50); Red Cell Distribution Width 18.3 % (11.5-14.5); Segmented Neutrophils % 58.8 %; White Blood Count 6.2 K/mcL (4.3-11.1)
[2020-08-18 03:58] LABS: Alanine Aminotransferase 21 Units/L (7-52); Albumin 3.4 g/dL (3.5-5.7); Alkaline Phosphatase 68 Units/L (34-104); Aspartate Amino Transferase 15 Units/L (13-39); BUN/Creatinine Ratio 10 (6-26); Bilirubin,Total 0.8 mg/dL (0.3-1.0); Blood Urea Nitrogen 6 mg/dL (6-20); Calcium 8.6 mg/dL (8.6-10.3); Carbon Dioxide 23 mEq/L (23-29); Chloride 106 mEq/L (98-107); Globulin 3.4 g/dL (2.4-3.5); Glucose 100 mg/dL (70-105); Magnesium 1.8 mg/dL (1.6-2.6); Osmolality,Calculated 282 (280-300); Phosphorous 2.8 mg/dL (2.7-4.5); Potassium 3.5 mEq/L (3.5-5.1); Sodium 137 mEq/L (136-145); Total Protein 6.8 g/dL (6.4-8.9); eGFR For African Americans > 60 (> 60); eGFR For Non-African Americans > 60 (> 60)
[2020-08-18] MEDS: *HR* Enoxaparin 40 MG/0.4 ML SYRINGE SQ SCH (04:48)
[2020-08-18] MEDS: Meropenem 1,000 MG in 0.9 % Sodium Chloride Mini Bag 100 ML IVPB SCH ×2 (04:48→14:01)
[2020-08-18] MEDS: Vancomycin Oral Soln 125 MG/2.5 ML UDC PO SCH ×4 (10:37→21:23)
[2020-08-18] MEDS: Insulin LISPRO 300 UNITS/3 ML VIAL SQ SCH ×4 (10:37→21:19)
[2020-08-18] MEDS ORDERED: Insulin DETEMIR 100 UNIT/ML X5UNITS SQ SCH (21:00)
[2020-08-19 05:03] LABS: Basophils % 0.7 %; Eosinophils # 0.6 K/mcL (0.0-0.6); Hematocrit 38.9 % (37.5-50.1); Hemoglobin 11.9 g/dL (12.9-16.9); Immature Granulocytes % 0.2 % (0-4); Lymphocytes # 1.4 K/mcL (0.6-4.6); Lymphocytes % 24.2 %; Mean Corpuscular HGB Conc 30.6 g/dL (31.6-35.5); Mean Corpuscular Hemoglobin 26.4 pg (28.0-33.3); Mean Corpuscular Volume 86.3 fL (83.0-100.0); Mean Platelet Volume 10.6 fL (9.4-12.4); Monocytes # 0.5 K/mcL (0.0-1.3); Monocytes % 9.4 %; Neutrophils # 3.1 K/mcL (1.6-8.9); Platelet Count 273 K/mcL (140-400); Red Blood Count 4.51 M/mcL (4.19-5.50); Red Cell Distribution Width 18.1 % (11.5-14.5); Segmented Neutrophils % 54.5 %; White Blood Count 5.6 K/mcL (4.3-11.1)
[2020-08-19 05:26] LABS: BUN/Creatinine Ratio 16 (6-26); Blood Urea Nitrogen 13 mg/dL (6-20); Calcium 8.7 mg/dL (8.6-10.3); Carbon Dioxide 24 mEq/L (23-29); Chloride 104 mEq/L (98-107); Glucose 131 mg/dL (70-105); Magnesium 1.8 mg/dL (1.6-2.6); Osmolality,Calculated 284 (280-300); Sodium 136 mEq/L (136-145); eGFR For African Americans > 60 (> 60); eGFR For Non-African Americans > 60 (> 60)
[2020-08-19] MEDS: *HR* Enoxaparin 40 MG/0.4 ML SYRINGE SQ SCH (05:30)
[2020-08-19] MEDS: Lactobacillus 1 EACH CAP.SPRINK PO SCH (08:21)
[2020-08-19] MEDS: Vancomycin Oral Soln 125 MG/2.5 ML UDC PO SCH ×4 (08:21→21:21)
[2020-08-19] MEDS: Cholecalciferol (D-3) 1,000 UNIT (25MCG) TABLET PO SCH (08:21)
[2020-08-19] MEDS: Insulin LISPRO 300 UNITS/3 ML VIAL SQ SCH ×4 (08:22→21:15)
[2020-08-20 05:25] LABS: Basophils # 0.1 K/mcL (0.0-0.2); Basophils % 0.9 %; Eosinophils # 0.8 K/mcL (0.0-0.6); Eosinophils % 12.6 %; Hematocrit 42.1 % (37.5-50.1); Hemoglobin 12.7 g/dL (12.9-16.9); Immature Granulocytes % 0.2 % (0-4); Lymphocytes # 1.8 K/mcL (0.6-4.6); Lymphocytes % 27.8 %; Mean Corpuscular HGB Conc 30.2 g/dL (31.6-35.5); Mean Corpuscular Hemoglobin 25.8 pg (28.0-33.3); Mean Corpuscular Volume 85.4 fL (83.0-100.0); Mean Platelet Volume 10.3 fL (9.4-12.4); Monocytes # 0.5 K/mcL (0.0-1.3); Monocytes % 7.4 %; Neutrophils # 3.2 K/mcL (1.6-8.9); Platelet Count 289 K/mcL (140-400); Red Blood Count 4.93 M/mcL (4.19-5.50); Segmented Neutrophils % 51.1 %; White Blood Count 6.3 K/mcL (4.3-11.1)
[2020-08-20] MEDS: *HR* Enoxaparin 40 MG/0.4 ML SYRINGE SQ SCH (05:38)
[2020-08-20 05:45] LABS: BUN/Creatinine Ratio 25 (6-26); Blood Urea Nitrogen 19 mg/dL (6-20); Calcium 9.3 mg/dL (8.6-10.3); Carbon Dioxide 25 mEq/L (23-29); Chloride 103 mEq/L (98-107); Glucose 121 mg/dL (70-105); Magnesium 1.8 mg/dL (1.6-2.6); Osmolality,Calculated 286 (280-300); Potassium 3.8 mEq/L (3.5-5.1); Sodium 136 mEq/L (136-145); eGFR For African Americans > 60 (> 60); eGFR For Non-African Americans > 60 (> 60)
[2020-08-20] MEDS: Insulin LISPRO 300 UNITS/3 ML VIAL SQ SCH ×4 (08:16→20:54)
[2020-08-20] MEDS: Cholecalciferol (D-3) 1,000 UNIT (25MCG) TABLET PO SCH (08:27)
[2020-08-20] MEDS: Lactobacillus 1 EACH CAP.SPRINK PO SCH (08:27)
[2020-08-20] MEDS: Vancomycin Oral Soln 125 MG/2.5 ML UDC PO SCH ×4 (08:28→20:54)
[2020-08-21 01:25] LABS: Basophils # 0.1 K/mcL (0.0-0.2); Eosinophils # 0.7 K/mcL (0.0-0.6); Hematocrit 40.8 % (37.5-50.1); Hemoglobin 12.1 g/dL (12.9-16.9); Immature Granulocytes % 0.2 % (0-4); Lymphocytes # 2.2 K/mcL (0.6-4.6); Lymphocytes % 26.5 %; Mean Corpuscular HGB Conc 29.7 g/dL (31.6-35.5); Mean Corpuscular Hemoglobin 25.5 pg (28.0-33.3); Mean Corpuscular Volume 85.9 fL (83.0-100.0); Mean Platelet Volume 10.2 fL (9.4-12.4); Monocytes # 0.5 K/mcL (0.0-1.3); Monocytes % 6.5 %; Neutrophils # 4.6 K/mcL (1.6-8.9); Nucleated Red Blood Cells 0.2 /100 WBC (0); Platelet Count 321 K/mcL (140-400); Red Blood Count 4.75 M/mcL (4.19-5.50); Red Cell Distribution Width 17.8 % (11.5-14.5); Segmented Neutrophils % 56.8 %; White Blood Count 8.1 K/mcL (4.3-11.1)
[2020-08-21 01:43] LABS: BUN/Creatinine Ratio 26 (6-26); Blood Urea Nitrogen 21 mg/dL (6-20); Carbon Dioxide 23 mEq/L (23-29); Chloride 105 mEq/L (98-107); Glucose 150 mg/dL (70-105); Osmolality,Calculated 290 (280-300); Potassium 3.9 mEq/L (3.5-5.1); Sodium 137 mEq/L (136-145); eGFR For African Americans > 60 (> 60); eGFR For Non-African Americans > 60 (> 60)
[2020-08-21] MEDS: *HR* Enoxaparin 40 MG/0.4 ML SYRINGE SQ SCH (05:47)
[2020-08-21] MEDS: Insulin LISPRO 300 UNITS/3 ML VIAL SQ SCH ×4 (07:30→20:07)
[2020-08-21] MEDS: Vancomycin Oral Soln 125 MG/2.5 ML UDC PO SCH ×4 (08:43→20:17)
[2020-08-21] MEDS: Cholecalciferol (D-3) 1,000 UNIT (25MCG) TABLET PO SCH (08:43)
[2020-08-21] MEDS: Lactobacillus 1 EACH CAP.SPRINK PO SCH (08:43)
[2020-08-22 05:12] LABS: Basophils # 0.1 K/mcL (0.0-0.2); Basophils % 1.1 %; Eosinophils # 0.7 K/mcL (0.0-0.6); Eosinophils % 9.8 %; Hematocrit 39.8 % (37.5-50.1); Hemoglobin 11.9 g/dL (12.9-16.9); Immature Granulocytes % 0.1 % (0-4); Lymphocytes # 1.9 K/mcL (0.6-4.6); Lymphocytes % 25.1 %; Mean Corpuscular HGB Conc 29.9 g/dL (31.6-35.5); Mean Corpuscular Hemoglobin 25.9 pg (28.0-33.3); Mean Corpuscular Volume 86.5 fL (83.0-100.0); Monocytes # 0.5 K/mcL (0.0-1.3); Monocytes % 7.2 %; Neutrophils # 4.2 K/mcL (1.6-8.9); Platelet Count 312 K/mcL (140-400); Red Cell Distribution Width 17.9 % (11.5-14.5); Segmented Neutrophils % 56.7 %; White Blood Count 7.5 K/mcL (4.3-11.1)
[2020-08-22] MEDS: *HR* Enoxaparin 40 MG/0.4 ML SYRINGE SQ SCH (05:41)
[2020-08-22] MEDS: Insulin LISPRO 300 UNITS/3 ML VIAL SQ SCH ×3 (07:28→16:45)
[2020-08-22] MEDS: Lactobacillus 1 EACH CAP.SPRINK PO SCH (07:44)
[2020-08-22] MEDS: Vancomycin Oral Soln 125 MG/2.5 ML UDC PO SCH ×3 (07:44→18:12)
[2020-08-22] MEDS: Cholecalciferol (D-3) 1,000 UNIT (25MCG) TABLET PO SCH (07:44)
[2020-08-22 14:25] VITALS: BP 114/76
== END 2020-08-22 19:13 | disposition other institution (70) | DRG 371 ==
LOC: EMEROOARM 18:17 → 3ANU 18:17 → SUATTDRO 22:00 → 3ANU 23:07
PROVIDERS: ADMIT Internal Medicine; ATTEND Internal Medicine

== ENCOUNTER 2020-10-10 11:55 | Inpatient (IN) ==
[2020-10-10] MEDS ORDERED: 0.9 % Sodium Chloride 1,000 ML IVC ONE (18:29)
[2020-10-10 19:24] LABS: Bacteria,Urine Moderate per hpf (None-Few); Bilirubin,Urine Negative (Negative); Blood,Urine Small (Negative); Budding Yeast,Urine Many per hpf (None Seen); Clarity,Urine Ex.Turbid (Clear); Color,Urine Yellow (Yellow); Glucose,Urine (UA) Normal (Normal); Ketones,Urine Trace mg/dL (Negative); Leukocyte Esterase,Urine Large (Negative); Nitrite,Urine Negative (Negative); PH,Urine 7.5 pH Units (5.0-8.0); Protein,Urine 200 mg/dL (Neg-Trace); RBC,Urine 50-100 per hpf (0-3); Specific Gravity,Urine 1.018 (1.010-1.025); WBC,Urine TNTC per hpf (0-3)
[2020-10-10 19:39] LABS: Alanine Aminotransferase 19 Units/L (7-52); Albumin 4.2 g/dL (3.5-5.7); Alkaline Phosphatase 86 Units/L (34-104); Aspartate Amino Transferase 18 Units/L (13-39); BUN/Creatinine Ratio 11 (6-26); Bilirubin,Total 0.4 mg/dL (0.3-1.0); Blood Urea Nitrogen 8 mg/dL (6-20); Calcium 9.5 mg/dL (8.6-10.3); Carbon Dioxide 22 mEq/L (23-29); Chloride 104 mEq/L (98-107); Globulin 4.2 g/dL (2.4-3.5); Glucose 85 mg/dL (70-105); Osmolality,Calculated 284 (280-300); Potassium 3.5 mEq/L (3.5-5.1); Sodium 138 mEq/L (136-145); Total Protein 8.4 g/dL (6.4-8.9); eGFR For African Americans > 60 (> 60); eGFR For Non-African Americans > 60 (> 60)
[2020-10-10] MEDS ORDERED: Isovue-370 500 ML BOTTLE IVP ONE (21:34)
[2020-10-10 22:56] LABS: Basophils # 0.1 K/mcL (0.0-0.2); Basophils % 0.9 %; Eosinophils # 0.4 K/mcL (0.0-0.6); Eosinophils % 3.3 %; Hematocrit 42.8 % (37.5-50.1); Hemoglobin 13.2 g/dL (12.9-16.9); Immature Granulocytes % 0.2 % (0-4); Lymphocytes % 19.3 %; Mean Corpuscular HGB Conc 30.8 g/dL (31.6-35.5); Mean Corpuscular Hemoglobin 26.1 pg (28.0-33.3); Mean Corpuscular Volume 84.6 fL (83.0-100.0); Mean Platelet Volume 10.1 fL (9.4-12.4); Monocytes # 0.6 K/mcL (0.0-1.3); Neutrophils # 7.5 K/mcL (1.6-8.9); Platelet Count 350 K/mcL (140-400); Red Blood Count 5.06 M/mcL (4.19-5.50); Red Cell Distribution Width 16.6 % (11.5-14.5); Segmented Neutrophils % 70.3 %; White Blood Count 10.6 K/mcL (4.3-11.1)
[2020-10-11] MEDS ORDERED: Piperacillin/Tazobactam 3.375 GM in Water for inj. (sterile) 20 ML IVP ONE (00:22)
[2020-10-11] MEDS ORDERED: Acetaminophen 325 MG TABLET PO PRN (02:09)
[2020-10-11] MEDS ORDERED: *HR* HYDROcodone/Acet 5/325 mg TABLET PO PRN ×2 (02:09→08:54)
[2020-10-11] MEDS ORDERED: Naloxone 0.4 MG/ML INJ IVP PRN (02:09)
[2020-10-11] MEDS ORDERED: *HR* OxyCODONE Immed Rel 5 MG TABLET PO PRN (02:09)
[2020-10-11] MEDS ORDERED: Ondansetron 4 MG/2 ML VIAL IVP PRN (02:09)
[2020-10-11] MEDS ORDERED: 0.9 % Sodium Chloride 1,000 ML IVC SCH (02:15)
[2020-10-11] MEDS: *HR* Heparin 5,000 UNIT/ML VIAL SQ SCH ×2 (06:56→18:36)
[2020-10-11] MEDS: Piperacillin/Tazobactam 3.375 GM in 0.9 % Sodium Chloride Mini Bag 100 ML IVPB SCH ×3 (08:45→23:36)
[2020-10-11] MEDS ORDERED: Loratadine 10 MG TABLET PO PRN (08:54)
[2020-10-11] MEDS ORDERED: Ondansetron ODT 4 MG TAB.RAPDIS PO PRN (08:54)
[2020-10-11] MEDS ORDERED: LACTOBACILLUS RHAMNOSUS GG PO SCH (09:00)
[2020-10-11] MEDS: Lactobacillus 1 EACH CAP.SPRINK PO SCH (14:57)
[2020-10-11] MEDS: Bumetanide 1 MG TABLET PO SCH (18:36)
[2020-10-12] MEDS: *HR* Heparin 5,000 UNIT/ML VIAL SQ SCH ×2 (06:11→17:26)
[2020-10-12] MEDS: Lactobacillus 1 EACH CAP.SPRINK PO SCH (08:57)
[2020-10-12] MEDS: Piperacillin/Tazobactam 3.375 GM in 0.9 % Sodium Chloride Mini Bag 100 ML IVPB SCH ×3 (08:57→23:19)
[2020-10-12] MEDS: Bumetanide 1 MG TABLET PO SCH (16:10)
[2020-10-13] MEDS: *HR* Heparin 5,000 UNIT/ML VIAL SQ SCH (05:26)
[2020-10-13] MEDS: Piperacillin/Tazobactam 3.375 GM in 0.9 % Sodium Chloride Mini Bag 100 ML IVPB SCH (09:22)
[2020-10-13] MEDS: Lactobacillus 1 EACH CAP.SPRINK PO SCH (09:22)
[2020-10-13 09:41] LABS: Hematocrit 46.1 % (37.5-50.1); Hemoglobin 14.2 g/dL (12.9-16.9); Mean Corpuscular HGB Conc 30.8 g/dL (31.6-35.5); Mean Corpuscular Hemoglobin 25.9 pg (28.0-33.3); Mean Platelet Volume 9.9 fL (9.4-12.4); Platelet Count 332 K/mcL (140-400); Red Blood Count 5.49 M/mcL (4.19-5.50); Red Cell Distribution Width 17.2 % (11.5-14.5); White Blood Count 7.2 K/mcL (4.3-11.1)
[2020-10-13 10:01] LABS: BUN/Creatinine Ratio 14 (6-26); Blood Urea Nitrogen 12 mg/dL (6-20); Calcium 9.7 mg/dL (8.6-10.3); Carbon Dioxide 24 mEq/L (23-29); Chloride 100 mEq/L (98-107); Glucose 178 mg/dL (70-105); Osmolality,Calculated 284 (280-300); Potassium 4.1 mEq/L (3.5-5.1); Sodium 135 mEq/L (136-145); eGFR For African Americans > 60 (> 60); eGFR For Non-African Americans > 60 (> 60)
[2020-10-13 10:23] VITALS: BP 112/77
== END 2020-10-13 13:37 | disposition home health service (06) | DRG 698 ==
LOC: EMEROOARM 11:55 → 3ANU 11:55 → SUATTDRO 10-11 01:45 → 3ANU 10-11 02:25
PROVIDERS: ADMIT Student in an Organized Health Care Education/Training Program; ATTEND Internal Medicine

== ENCOUNTER 2021-04-05 13:43 | Inpatient (IN) ==
[2021-04-05 14:16] LABS: Basophils # 0.1 K/mcL (0.0-0.2); Basophils % 0.7 %; Eosinophils # 0.5 K/mcL (0.0-0.6); Eosinophils % 5.1 %; Hematocrit 33.3 % (37.5-50.1); Hemoglobin 10.1 g/dL (12.9-16.9); Immature Granulocytes % 0.3 % (0-4); Lymphocytes # 1.7 K/mcL (0.6-4.6); Lymphocytes % 16.3 %; Mean Corpuscular HGB Conc 30.3 g/dL (31.6-35.5); Mean Corpuscular Hemoglobin 25.6 pg (28.0-33.3); Mean Corpuscular Volume 84.3 fL (83.0-100.0); Mean Platelet Volume 9.5 fL (9.4-12.4); Monocytes # 0.8 K/mcL (0.0-1.3); Monocytes % 7.3 %; Neutrophils # 7.2 K/mcL (1.6-8.9); Nucleated Red Blood Cells 0.2 /100 WBC (0); Platelet Count 381 K/mcL (140-400); Red Blood Count 3.95 M/mcL (4.19-5.50); Red Cell Distribution Width 16.8 % (11.5-14.5); Segmented Neutrophils % 70.3 %; White Blood Count 10.3 K/mcL (4.3-11.1)
[2021-04-05 14:38] LABS: BUN/Creatinine Ratio 12 (6-26); Blood Urea Nitrogen 9 mg/dL (6-20); Calcium 8.9 mg/dL (8.6-10.3); Carbon Dioxide 23 mEq/L (23-29); Chloride 105 mEq/L (98-107); Glucose 111 mg/dL (70-105); Osmolality,Calculated 283 (280-300); Potassium 3.7 mEq/L (3.5-5.1); Sodium 137 mEq/L (136-145); eGFR For African Americans > 60 (> 60); eGFR For Non-African Americans > 60 (> 60)
[2021-04-05] MEDS ORDERED: Isovue-370 500 ML BOTTLE IVP ONE ×2 (14:38→16:17)
[2021-04-05 14:42] LABS: Troponin I 0.89 ng/mL (< 0.04)
[2021-04-05] MEDS ORDERED: Aspirin 325 MG TABLET PO ONE (15:38)
[2021-04-05] MEDS ORDERED: Ondansetron ODT 4 MG TAB.RAPDIS SL PRN (17:17)
[2021-04-05] MEDS ORDERED: Acetaminophen 325 MG TABLET PO PRN (17:17)
[2021-04-05] MEDS ORDERED: Dextrose Gel 15 GM/37.5 ML TUBE PO PRN ×2 (18:16)
[2021-04-05] MEDS ORDERED: *HR* Dextrose 50 % in Water (Vial) 50 ML VIAL IVP PRN (18:16)
[2021-04-05] MEDS ORDERED: D5% in Water 1,000 ML IVC PRN (18:16)
[2021-04-05] MEDS: GuaiFENesin/Dextromethorphan TABLET PO SCH (21:48)
[2021-04-06 02:41] LABS: Hematocrit 32.6 % (37.5-50.1); Hemoglobin 9.8 g/dL (12.9-16.9); Mean Corpuscular HGB Conc 30.1 g/dL (31.6-35.5); Mean Corpuscular Hemoglobin 25.3 pg (28.0-33.3); Mean Corpuscular Volume 84.2 fL (83.0-100.0); Mean Platelet Volume 9.6 fL (9.4-12.4); Platelet Count 380 K/mcL (140-400); Red Blood Count 3.87 M/mcL (4.19-5.50); Red Cell Distribution Width 16.9 % (11.5-14.5); White Blood Count 9.2 K/mcL (4.3-11.1)
[2021-04-06 02:59] LABS: BUN/Creatinine Ratio 12 (6-26); Blood Urea Nitrogen 9 mg/dL (6-20); Calcium 8.8 mg/dL (8.6-10.3); Carbon Dioxide 25 mEq/L (23-29); Chloride 104 mEq/L (98-107); Glucose 95 mg/dL (70-105); Osmolality,Calculated 280 (280-300); Sodium 136 mEq/L (136-145); eGFR For African Americans > 60 (> 60); eGFR For Non-African Americans > 60 (> 60)
[2021-04-06] MEDS ORDERED: *HR* Enoxaparin 40 MG/0.4 ML SYRINGE SQ SCH (06:00)
[2021-04-06] MEDS: GuaiFENesin/Dextromethorphan TABLET PO SCH ×2 (07:50→21:30)
[2021-04-06] MEDS: Vicks Vaporub Oint 50 GM PACKAGE TP SCH ×3 (12:58→21:38)
[2021-04-06] MEDS: Aspirin 81 MG TAB.CHEW PO SCH (15:00)
[2021-04-06] MEDS ORDERED: Bumetanide 1 MG TABLET PO SCH (21:00)
[2021-04-06] MEDS: *HR* Enoxaparin 40 MG/0.4 ML SYRINGE SQ SCH (21:30)
[2021-04-06] MEDS ORDERED: Benzonatate 100 MG CAPSULE PO PRN (21:40)
[2021-04-06] MEDS: Nystatin POWDER 30 GM BOTTLE TP SCH (22:40)
[2021-04-07] MEDS ORDERED: LEVOTHYROXINE SODIUM 200 MCG PO SCH (06:30)
[2021-04-07] MEDS: Aspirin 81 MG TAB.CHEW PO SCH (10:19)
[2021-04-07] MEDS: *HR* Enoxaparin 40 MG/0.4 ML SYRINGE SQ SCH (10:19)
[2021-04-07] MEDS: GuaiFENesin/Dextromethorphan TABLET PO SCH (10:19)
[2021-04-07] MEDS: Vicks Vaporub Oint 50 GM PACKAGE TP SCH (10:20)
[2021-04-07] MEDS: Nystatin POWDER 30 GM BOTTLE TP SCH (10:20)
[2021-04-07 11:32] VITALS: BP 120/79
== END 2021-04-07 15:22 | disposition home or self-care (01) | DRG 202 ==
LOC: EMEROOARM 13:43 → 2NENU 13:43 → SUATTDRO 17:12 → 2NENU 17:50
PROVIDERS: ADMIT Student in an Organized Health Care Education/Training Program; ATTEND Internal Medicine

== ENCOUNTER 2021-05-14 21:15 | Inpatient (IN) ==
[2021-05-14] MEDS ORDERED: Piperacillin/Tazobactam 3.375 GM in 0.9 % Sodium Chloride Mini Bag 100 ML IVPB ONE (22:15)
[2021-05-14] MEDS ORDERED: VANCOMYCIN IVPB ONE (22:30)
[2021-05-14 23:14] LABS: Basophils # 0.1 K/mcL (0.0-0.2); Basophils % 0.8 %; Eosinophils # 0.4 K/mcL (0.0-0.6); Eosinophils % 4.6 %; Hematocrit 38.7 % (37.5-50.1); Hemoglobin 11.4 g/dL (12.9-16.9); Immature Granulocytes % 0.2 % (0-4); Lymphocytes # 1.8 K/mcL (0.6-4.6); Lymphocytes % 20.1 %; Mean Corpuscular HGB Conc 29.5 g/dL (31.6-35.5); Mean Corpuscular Hemoglobin 24.4 pg (28.0-33.3); Mean Corpuscular Volume 82.9 fL (83.0-100.0); Mean Platelet Volume 10.3 fL (9.4-12.4); Monocytes # 0.7 K/mcL (0.0-1.3); Monocytes % 7.2 %; Neutrophils # 6.1 K/mcL (1.6-8.9); Platelet Count 367 K/mcL (140-400); Red Blood Count 4.67 M/mcL (4.19-5.50); Red Cell Distribution Width 16.8 % (11.5-14.5); Segmented Neutrophils % 67.1 %; White Blood Count 9.1 K/mcL (4.3-11.1)
[2021-05-14 23:30] LABS: BUN/Creatinine Ratio 20 (6-26); Blood Urea Nitrogen 20 mg/dL (6-20); Calcium 8.8 mg/dL (8.6-10.3); Carbon Dioxide 24 mEq/L (23-29); Chloride 104 mEq/L (98-107); Glucose 128 mg/dL (70-105); Osmolality,Calculated 286 (280-300); Potassium 3.7 mEq/L (3.5-5.1); Sodium 136 mEq/L (136-145); eGFR For African Americans > 60 (> 60); eGFR For Non-African Americans > 60 (> 60)
[2021-05-15] MEDS ORDERED: Ondansetron 4 MG/2 ML VIAL IVP PRN (00:56)
[2021-05-15] MEDS ORDERED: *HR* HYDROcodone/Acet 5/325 mg TABLET PO PRN (00:56)
[2021-05-15] MEDS ORDERED: Melatonin 3 MG TABLET PO PRN (00:56)
[2021-05-15] MEDS ORDERED: Naloxone 0.4 MG/ML INJ IVP PRN (00:56)
[2021-05-15] MEDS ORDERED: *HR* OxyCODONE Immed Rel 5 MG TABLET PO PRN (00:56)
[2021-05-15] MEDS ORDERED: Acetaminophen 325 MG TABLET PO PRN (00:56)
[2021-05-15] MEDS ORDERED: *HR* Dextrose 50 % in Water (Vial) 50 ML VIAL IVP PRN (01:13)
[2021-05-15] MEDS ORDERED: Dextrose Gel 15 GM/37.5 ML TUBE PO PRN ×2 (01:13)
[2021-05-15] MEDS ORDERED: D5% in Water 1,000 ML IVC PRN (01:13)
[2021-05-15] MEDS ORDERED: Benzonatate 100 MG CAPSULE PO PRN (01:16)
[2021-05-15 06:19] LABS: BUN/Creatinine Ratio 21 (6-26); Blood Urea Nitrogen 19 mg/dL (6-20); Calcium 8.9 mg/dL (8.6-10.3); Carbon Dioxide 21 mEq/L (23-29); Chloride 107 mEq/L (98-107); Glucose 115 mg/dL (70-105); Magnesium 1.9 mg/dL (1.6-2.6); Osmolality,Calculated 283 (280-300); Potassium 4.3 mEq/L (3.5-5.1); Sodium 135 mEq/L (136-145); eGFR For African Americans > 60 (> 60); eGFR For Non-African Americans > 60 (> 60)
[2021-05-15] MEDS: *HR* Enoxaparin 40 MG/0.4 ML SYRINGE SQ SCH (06:38)
[2021-05-15] MEDS: Insulin LISPRO 300 UNITS/3 ML VIAL SUBQ SCH ×4 (07:54→20:11)
[2021-05-15] MEDS ORDERED: cefTAZidime 1,000 MG in Water for inj. (sterile) 10 ML IVP SCH (08:00)
[2021-05-15] MEDS ORDERED: Vancomycin 2,000 MG 2,000 MG/520 ML IV.SOLN IVPB ONE (08:00)
[2021-05-15] MEDS: Aspirin 81 MG TAB.CHEW PO SCH (09:03)
[2021-05-15] MEDS: Nystatin POWDER 30 GM BOTTLE TP SCH ×2 (09:55→20:16)
[2021-05-15 13:32] LABS: Hematocrit 36.9 % (37.5-50.1); Immature Platelets 4.9 % (1.1-6.1); Mean Corpuscular HGB Conc 32.5 g/dL (31.6-35.5); Mean Corpuscular Hemoglobin 26.4 pg (28.0-33.3); Mean Corpuscular Volume 81.1 fL (83.0-100.0); Mean Platelet Volume 11.6 fL (9.4-12.4); Monocytes # 0.6 K/mcL (0.0-1.3); Nucleated Red Blood Cells 0.3 /100 WBC (0); Platelet Count 314 K/mcL (140-400); Red Blood Count 4.55 M/mcL (4.19-5.50); Red Cell Distribution Width 17.3 % (11.5-14.5); White Blood Count 9.9 K/mcL (4.3-11.1)
[2021-05-15 13:36] LABS: Eosinophils # 0.2 K/mcL (0.0-0.6); Neutrophils # 7.1 K/mcL (1.6-8.9)
[2021-05-15 13:37] LABS: Anisocytosis 1+ (Not Present); Platelet Estimate Normal (Normal); Poikilocytosis 1+ (Not Present)
[2021-05-15 16:21] LABS: Amorphous Sediment,Urine Few per hpf (None-Few); Bacteria,Urine Few per hpf (None-Few); Bilirubin,Urine Negative (Negative); Blood,Urine Trace (Negative); Calcium Oxalate Crystals,Urine Present per hpf; Clarity,Urine Ex.Turbid (Clear); Color,Urine Light-Yellow (Yellow); Glucose,Urine (UA) Normal (Normal); Hyaline Casts,Urine Few per lpf (None Seen); Ketones,Urine Negative (Negative); Leukocyte Esterase,Urine Large (Negative); Mucus,Urine Few per lpf (None-Few); Nitrite,Urine Negative (Negative); PH,Urine 8.5 pH Units (5.0-8.0); Protein,Urine 70 mg/dL (Neg-Trace); RBC,Urine 15-30 per hpf (0-3); Renal Epithelial Cells,Urine Few per hpf (None-Few); Specific Gravity,Urine 1.021 (1.010-1.025); Squamous Epithelial Cell,Urine Few per hpf (None-Few); Triple Phosphate Crystal,Urine Present per hpf; Urobilinogen,Urine Normal (Normal); WBC,Urine 30-50 per hpf (0-3)
[2021-05-15] MEDS ORDERED: VANCOMYCIN IVPB SCH (20:00)
[2021-05-15] MEDS: Bumetanide 1 MG TABLET PO SCH (20:16)
[2021-05-16 04:30] LABS: Acinetobacter baumannii by PCR Not Detected (Not Detect); Candida albicans by PCR Not Detected (Not Detect); Candida glabrata by PCR Not Detected (Not Detect); Candida krusei by PCR Not Detected (Not Detect); Candida parapsilosis by PCR Not Detected (Not Detect); Candida tropicalis by PCR Not Detected (Not Detect); Enterobacter cloacae Cmplx PCR Not Detected (Not Detect); Enterobacteriaceae by PCR Not Detected (Not Detect); Enterococcus by PCR Not Detected (Not Detect); Escherichia coli by PCR Not Detected (Not Detect); Klebsiella oxytoca by PCR Not Detected (Not Detect); Klebsiella pneumoniae by PCR Not Detected (Not Detect); Proteus by PCR Not Detected (Not Detect); Pseudomonas aeruginosa by PCR Not Detected (Not Detect); Serratia marcescens by PCR Not Detected (Not Detect); Staphylococcus aureus by PCR Not Detected (Not Detect); Staphylococcus by PCR DETECTED (Not Detect); Streptococcus agalactiae(B)PCR Not Detected (Not Detect); Streptococcus by PCR Not Detected (Not Detect); Streptococcus pneumoniae PCR Not Detected (Not Detect); Streptococcus pyogenes (A) PCR Not Detected (Not Detect); mecA Methicillin-Resist Gene DETECTED (Not Detect); vanA/B Vancomycin-Resist Genes Not Detected (Not Detect)
[2021-05-16] MEDS: *HR* Enoxaparin 40 MG/0.4 ML SYRINGE SQ SCH (05:12)
[2021-05-16 05:30] LABS: Estimated Average Glucose 128 mg/dl; Hemoglobin A1C 6.1 %
[2021-05-16] MEDS: Insulin LISPRO 300 UNITS/3 ML VIAL SUBQ SCH ×4 (07:08→19:47)
[2021-05-16] MEDS: Nystatin POWDER 30 GM BOTTLE TP SCH ×2 (07:09→19:51)
[2021-05-16] MEDS: Aspirin 81 MG TAB.CHEW PO SCH (08:02)
[2021-05-16] MEDS: Bumetanide 1 MG TABLET PO SCH (19:51)
[2021-05-17] MEDS: *HR* Enoxaparin 40 MG/0.4 ML SYRINGE SQ SCH (05:18)
[2021-05-17] MEDS: Insulin LISPRO 300 UNITS/3 ML VIAL SUBQ SCH ×3 (07:33→17:16)
[2021-05-17] MEDS: Aspirin 81 MG TAB.CHEW PO SCH (08:32)
[2021-05-17] MEDS: Nystatin POWDER 30 GM BOTTLE TP SCH (08:33)
[2021-05-17 15:50] VITALS: BP 122/75
== END 2021-05-17 19:07 | disposition home health service (06) | DRG 699 ==
LOC: EMEROOARM 21:15 → 3BNU 21:15 → SUATTDRO 05-15 00:24 → 3BNU 05-15 00:29 → SUATTDRO 05-16 14:23
PROVIDERS: ADMIT Family Medicine; ATTEND Nurse Practitioner

== ENCOUNTER 2021-08-23 15:01 | Inpatient (IN) ==
[2021-08-23 17:57] LABS: Alanine Aminotransferase 9 Units/L (7-52); Albumin 3.8 g/dL (3.5-5.7); Albumin/Globulin Ratio 0.9 (1.1-2.2); Alkaline Phosphatase 71 Units/L (34-104); Aspartate Amino Transferase 13 Units/L (13-39); BUN/Creatinine Ratio 14 (6-26); Bilirubin,Total 0.5 mg/dL (0.3-1.0); Blood Urea Nitrogen 12 mg/dL (6-20); Calcium 9.4 mg/dL (8.6-10.3); Carbon Dioxide 25 mEq/L (23-29); Chloride 105 mEq/L (98-107); Globulin 4.1 g/dL (2.4-3.5); Glucose 82 mg/dL (70-105); Osmolality,Calculated 287 (280-300); Potassium 4.1 mEq/L (3.5-5.1); Sodium 139 mEq/L (136-145); Total Protein 7.9 g/dL (6.4-8.9); eGFR For African Americans > 60 (> 60); eGFR For Non-African Americans > 60 (> 60)
[2021-08-23] MEDS ORDERED: Furosemide 80 MG in 0.9 % Sodium Chloride 50 ML IV ONE (18:00)
[2021-08-23 18:07] LABS: Basophils # 0.1 K/mcL (0.0-0.2); Eosinophils # 0.4 K/mcL (0.0-0.6); Eosinophils % 3.5 %; Hematocrit 37.5 % (37.5-50.1); Hemoglobin 11.2 g/dL (12.9-16.9); Immature Granulocytes % 0.7 % (0-4); Immature Platelets 9.4 % (1.1-6.1); Lymphocytes # 2.1 K/mcL (0.6-4.6); Mean Corpuscular HGB Conc 29.9 g/dL (31.6-35.5); Mean Corpuscular Hemoglobin 23.4 pg (28.0-33.3); Mean Corpuscular Volume 78.3 fL (83.0-100.0); Mean Platelet Volume 11.8 fL (9.4-12.4); Monocytes # 0.7 K/mcL (0.0-1.3); Monocytes % 6.6 %; Neutrophils # 7.7 K/mcL (1.6-8.9); Platelet Count 312 K/mcL (140-400); Red Blood Count 4.79 M/mcL (4.19-5.50); Red Cell Distribution Width 16.2 % (11.5-14.5); Segmented Neutrophils % 69.2 %; White Blood Count 11.1 K/mcL (4.3-11.1)
[2021-08-23] MEDS ORDERED: Clindamycin 600 MG/50 ML 600 MG/50 ML IV.SOLN IVPB STA (20:00)
[2021-08-23] MEDS ORDERED: Dextrose Gel 15 GM/37.5 ML TUBE PO PRN ×2 (22:29)
[2021-08-23] MEDS ORDERED: D5% in Water 1,000 ML IVC PRN (22:29)
[2021-08-23] MEDS ORDERED: *HR* Dextrose 50 % in Water (Syg) 50 ML SYRINGE IVP PRN (22:29)
[2021-08-23] MEDS ORDERED: Naloxone 0.4 MG/ML INJ IVP PRN (22:32)
[2021-08-23] MEDS ORDERED: Ondansetron 4 MG/2 ML VIAL IVP PRN (22:32)
[2021-08-23] MEDS ORDERED: Acetaminophen 325 MG TABLET PO PRN (22:32)
[2021-08-23] MEDS ORDERED: Vancomycin 1,750 MG/517.5 ML IV.SOLN IVPB ONE (23:00)
[2021-08-24] MEDS: Piperacillin/Tazobactam 3.375 GM in 0.9 % Sodium Chloride Mini Bag 100 ML IVPB SCH ×2 (00:51→08:06)
[2021-08-24] MEDS: Insulin LISPRO 300 UNITS/3 ML VIAL SUBQ SCH ×5 (01:31→20:59)
[2021-08-24] MEDS: *HR* Heparin 5,000 UNIT/ML VIAL SQ SCH ×3 (06:16→21:40)
[2021-08-24 06:20] LABS: % Iron Saturation 10 % (20-55); BUN/Creatinine Ratio 13 (6-26); Blood Urea Nitrogen 12 mg/dL (6-20); Calcium 9.4 mg/dL (8.6-10.3); Carbon Dioxide 23 mEq/L (23-29); Chloride 101 mEq/L (98-107); Cholesterol 209 mg/dL (< 200); Glucose 125 mg/dL (70-105); HDL Cholesterol 42 mg/dL (40-59); Iron 39 mcg/dL (65-175); LDL Cholesterol,Calculated 143 mg/dL (< 100); Magnesium 1.6 mg/dL (1.6-2.6); Osmolality,Calculated 285 (280-300); Potassium 3.5 mEq/L (3.5-5.1); Sodium 137 mEq/L (136-145); Transferrin 284 mg/dL (203-362); Triglycerides 122 mg/dL (< 150); eGFR For African Americans > 60 (> 60); eGFR For Non-African Americans > 60 (> 60)
[2021-08-24 06:38] LABS: Ferritin 16 ng/mL (20-250)
[2021-08-24 06:53] LABS: Folate 16.9 ng/mL (3.0-16.0)
[2021-08-24] MEDS ORDERED: Aspirin Enteric Coated 81 MG Tablet PO SCH (09:00)
[2021-08-24] MEDS: Furosemide 40 MG/4 ML VIAL IVP SCH ×2 (10:28→21:39)
[2021-08-24] MEDS ORDERED: Vancomycin 1,250 MG/262.5 ML IV.SOLN IVPB SCH (11:00)
[2021-08-24 12:27] LABS: Hematocrit 39.6 % (37.5-50.1); Mean Corpuscular HGB Conc 30.8 g/dL (31.6-35.5); Mean Corpuscular Hemoglobin 24.1 pg (28.0-33.3); Platelet Count 298 K/mcL (140-400); Red Blood Count 5.06 M/mcL (4.19-5.50); Red Cell Distribution Width 16.5 % (11.5-14.5); White Blood Count 10.3 K/mcL (4.3-11.1)
[2021-08-24 13:20] LABS: Hemoglobin 12.2 g/dL (12.9-16.9); Mean Corpuscular Volume 78.3 fL (83.0-100.0)
[2021-08-24 19:28] VITALS: O2SAT 95
[2021-08-25 01:44] LABS: Hematocrit 37.6 % (37.5-50.1); Hemoglobin 11.4 g/dL (12.9-16.9); Mean Corpuscular HGB Conc 30.3 g/dL (31.6-35.5); Mean Corpuscular Hemoglobin 24.1 pg (28.0-33.3); Mean Corpuscular Volume 79.5 fL (83.0-100.0); Mean Platelet Volume 10.4 fL (9.4-12.4); Platelet Count 437 K/mcL (140-400); Red Blood Count 4.73 M/mcL (4.19-5.50); Red Cell Distribution Width 16.3 % (11.5-14.5)
[2021-08-25 02:02] LABS: BUN/Creatinine Ratio 18 (6-26); Blood Urea Nitrogen 19 mg/dL (6-20); Carbon Dioxide 26 mEq/L (23-29); Chloride 100 mEq/L (98-107); Glucose 146 mg/dL (70-105); Osmolality,Calculated 285 (280-300); Potassium 3.2 mEq/L (3.5-5.1); Sodium 135 mEq/L (136-145); eGFR For African Americans > 60 (> 60); eGFR For Non-African Americans > 60 (> 60)
[2021-08-25] MEDS: *HR* Heparin 5,000 UNIT/ML VIAL SQ SCH (05:54)
[2021-08-25 07:17] VITALS: BP 116/71; PULSE 97; TEMP 97.9
[2021-08-25] MEDS: Insulin LISPRO 300 UNITS/3 ML VIAL SUBQ SCH (07:59)
[2021-08-25] MEDS: Furosemide 40 MG/4 ML VIAL IVP SCH (08:04)
[2021-08-25] MEDS ORDERED: Aspirin 81 MG TAB.CHEW PO SCH (09:00)
[2021-08-27 12:06] LABS: Estimated Average Glucose 126 mg/dl
== END 2021-08-25 12:47 | disposition home health service (06) | DRG 606 ==
LOC: EMEROOARM 15:01 → 3ANU 15:01 → SUATTDRO 22:23 → 3ANU 22:46
PROVIDERS: ADMIT Internal Medicine; ATTEND Internal Medicine

== ENCOUNTER 2022-08-27 11:13 | Inpatient (IN) ==
[2022-08-27 13:45] LABS: Adenovirus Not Detected (Not Detect); Bordetella Pertussis Not Detected (Not Detect); Chlamydophila pneumoniae Not Detected (Not Detect); Coronavirus 229E Not Detected (Not Detect); Coronavirus HKU1 Not Detected (Not Detect); Coronavirus NL63 Not Detected (Not Detect); Coronavirus OC43 Not Detected (Not Detect); Human Metapneumovirus Not Detected (Not Detect); Human Rhinovirus/Enterovirus Not Detected (Not Detect); Influenza A Subtype 2009 H1 Not Detected (Not Detect); Influenza B Not Detected (Not Detect); Mycoplasma pneumoniae Not Detected (Not Detect); Parainfluenza Virus 1 Not Detected (Not Detect); Parainfluenza Virus 2 Not Detected (Not Detect); Parainfluenza Virus 3 Not Detected (Not Detect); Parainfluenza Virus 4 Not Detected (Not Detect); Respiratory Syncytial Virus Not Detected (Not Detect); SARS-CoV-2 Not Detected (Not Detect)
[2022-08-27 14:37] LABS: Bacteria,Urine Few per hpf (None-Few); Bilirubin,Urine Negative (Negative); Blood,Urine Negative (Negative); Clarity,Urine Ex.Turbid (Clear); Color,Urine Yellow (Yellow); Glucose,Urine (UA) Normal (Normal); Ketones,Urine Negative (Negative); Leukocyte Esterase,Urine Large (Negative); Mucus,Urine Few per lpf (None-Few); Nitrite,Urine Positive (Negative); PH,Urine 8.5 pH Units (5.0-8.0); Protein,Urine >=600 mg/dL (Neg-Trace); Specific Gravity,Urine 1.023 (1.010-1.025); Squamous Epithelial Cell,Urine Few per hpf (None-Few); Triple Phosphate Crystal,Urine Present per hpf; Urobilinogen,Urine Normal (Normal)
[2022-08-27] MEDS ORDERED: 0.9 % Sodium Chloride 1,000 ML IVC ONE (15:35)
[2022-08-27] MEDS ORDERED: Ondansetron 4 MG/2 ML VIAL IVP ONE (15:35)
[2022-08-27 16:52] LABS: Basophils % 0.3 %; Eosinophils # 0.1 K/mcL (0.0-0.6); Eosinophils % 0.7 %; Hematocrit 37.7 % (37.5-50.1); Hemoglobin 11.5 g/dL (12.9-16.9); Immature Granulocytes % 0.3 % (0-4); Lymphocytes # 0.8 K/mcL (0.6-4.6); Mean Corpuscular HGB Conc 30.5 g/dL (31.6-35.5); Mean Corpuscular Hemoglobin 24.5 pg (28.0-33.3); Mean Corpuscular Volume 80.4 fL (83.0-100.0); Mean Platelet Volume 10.1 fL (9.4-12.4); Monocytes # 0.3 K/mcL (0.0-1.3); Monocytes % 2.4 %; Neutrophils # 10.3 K/mcL (1.6-8.9); Platelet Count 442 K/mcL (140-400); Red Blood Count 4.69 M/mcL (4.19-5.50); Red Cell Distribution Width 16.6 % (11.5-14.5); Segmented Neutrophils % 89.3 %; White Blood Count 11.5 K/mcL (4.3-11.1)
[2022-08-27] MEDS ORDERED: Cefepime HCl 2,000 MG in 0.9 % Sodium Chloride 10 ML IVP ONE (16:56)
[2022-08-27 17:13] LABS: Alanine Aminotransferase 10 Units/L (7-52); Albumin 4.3 g/dL (3.5-5.7); Alkaline Phosphatase 75 Units/L (34-104); Aspartate Amino Transferase 14 Units/L (13-39); BUN/Creatinine Ratio 17 (6-26); Bilirubin,Direct 0.1 mg/dL (0.0-0.2); Bilirubin,Indirect 0.3 mg/dL (0.0-1.0); Bilirubin,Total 0.4 mg/dL (0.3-1.0); Blood Urea Nitrogen 17 mg/dL (6-20); Carbon Dioxide 25 mEq/L (23-29); Chloride 104 mEq/L (98-107); Globulin 4.3 g/dL (2.4-3.5); Glucose 98 mg/dL (70-105); Lipase 105 Units/L (11-82); Osmolality,Calculated 288 (280-300); Potassium 3.9 mEq/L (3.5-5.1); Sodium 138 mEq/L (136-145); Total Protein 8.6 g/dL (6.4-8.9)
[2022-08-27] MEDS ORDERED: Ondansetron 4 MG/2 ML VIAL IVP PRN (17:35)
[2022-08-27] MEDS ORDERED: Naloxone 0.4 MG/ML INJ IVP PRN (17:35)
[2022-08-27] MEDS: Cefepime HCl 2,000 MG in 0.9 % Sodium Chloride 10 ML IVP SCH (21:11)
[2022-08-27] MEDS: D5% in 0.45% NACL 1,000 ML IVC SCH (21:51)
[2022-08-28 04:53] LABS: Basophils % 0.5 %; Eosinophils # 0.2 K/mcL (0.0-0.6); Eosinophils % 2.6 %; Hematocrit 33.7 % (37.5-50.1); Immature Granulocytes % 0.3 % (0-4); Lymphocytes # 1.1 K/mcL (0.6-4.6); Lymphocytes % 16.3 %; Mean Corpuscular HGB Conc 29.4 g/dL (31.6-35.5); Mean Corpuscular Hemoglobin 23.5 pg (28.0-33.3); Monocytes # 0.5 K/mcL (0.0-1.3); Monocytes % 8.2 %; Neutrophils # 4.8 K/mcL (1.6-8.9); Platelet Count 356 K/mcL (140-400); Red Blood Count 4.21 M/mcL (4.19-5.50); Red Cell Distribution Width 16.5 % (11.5-14.5); Segmented Neutrophils % 72.1 %; White Blood Count 6.6 K/mcL (4.3-11.1)
[2022-08-28 05:26] LABS: BUN/Creatinine Ratio 17 (6-26); Blood Urea Nitrogen 14 mg/dL (6-20); Carbon Dioxide 22 mEq/L (23-29); Chloride 107 mEq/L (98-107); Glucose 116 mg/dL (70-105); Osmolality,Calculated 287 (280-300); Potassium 3.5 mEq/L (3.5-5.1); Sodium 138 mEq/L (136-145)
[2022-08-28 05:44] LABS: Hemoglobin 9.9 g/dL (12.9-16.9)
[2022-08-28] MEDS: D5% in 0.45% NACL 1,000 ML IVC SCH (05:54)
[2022-08-28] MEDS: *HR* Enoxaparin 40 MG/0.4 ML SYRINGE SQ SCH (05:55)
[2022-08-28] MEDS: Cefepime HCl 2,000 MG in 0.9 % Sodium Chloride 10 ML IVP SCH ×2 (05:55→17:34)
[2022-08-28] MEDS: Insulin LISPRO 300 UNITS/3 ML VIAL SUBQ SCH ×3 (06:44→19:22)
[2022-08-29] MEDS: Insulin LISPRO 300 UNITS/3 ML VIAL SUBQ SCH ×3 (00:06→13:43)
[2022-08-29] MEDS: *HR* Enoxaparin 40 MG/0.4 ML SYRINGE SQ SCH (05:30)
[2022-08-29] MEDS: Cefepime HCl 2,000 MG in 0.9 % Sodium Chloride 10 ML IVP SCH ×2 (05:31→18:24)
[2022-08-29 06:45] LABS: Basophils % 0.5 %; Eosinophils # 0.4 K/mcL (0.0-0.6); Eosinophils % 6.3 %; Hematocrit 29.8 % (37.5-50.1); Hemoglobin 8.9 g/dL (12.9-16.9); Immature Granulocytes % 0.4 % (0-4); Lymphocytes # 1.1 K/mcL (0.6-4.6); Lymphocytes % 18.5 %; Mean Corpuscular HGB Conc 29.9 g/dL (31.6-35.5); Mean Corpuscular Hemoglobin 24.1 pg (28.0-33.3); Mean Corpuscular Volume 80.8 fL (83.0-100.0); Mean Platelet Volume 10.2 fL (9.4-12.4); Monocytes # 0.6 K/mcL (0.0-1.3); Monocytes % 9.7 %; Neutrophils # 3.7 K/mcL (1.6-8.9); Platelet Count 296 K/mcL (140-400); Red Blood Count 3.69 M/mcL (4.19-5.50); Red Cell Distribution Width 16.7 % (11.5-14.5); Segmented Neutrophils % 64.6 %; White Blood Count 5.7 K/mcL (4.3-11.1)
[2022-08-29 06:53] LABS: BUN/Creatinine Ratio 11 (6-26); Blood Urea Nitrogen 9 mg/dL (6-20); Carbon Dioxide 24 mEq/L (23-29); Chloride 107 mEq/L (98-107); Glucose 101 mg/dL (70-105); Osmolality,Calculated 281 (280-300); Potassium 3.3 mEq/L (3.5-5.1); Sodium 136 mEq/L (136-145)
[2022-08-30] MEDS: *HR* Enoxaparin 40 MG/0.4 ML SYRINGE SQ SCH (06:39)
[2022-08-30] MEDS: Cefepime HCl 2,000 MG in 0.9 % Sodium Chloride 10 ML IVP SCH (06:39)
[2022-08-30] MEDS ORDERED: Piperacillin/Tazobactam 3.375 GM in 0.9 % Sodium Chloride Mini Bag 100 ML IVPB SCH (08:00)
[2022-08-30 08:44] LABS: Hematocrit 35.6 % (37.5-50.1); Hemoglobin 10.5 g/dL (12.9-16.9); Immature Platelets 4.5 % (1.1-6.1); Mean Corpuscular HGB Conc 29.5 g/dL (31.6-35.5); Mean Corpuscular Volume 81.3 fL (83.0-100.0); Mean Platelet Volume 10.7 fL (9.4-12.4); Red Blood Count 4.38 M/mcL (4.19-5.50); Red Cell Distribution Width 16.7 % (11.5-14.5); White Blood Count 6.9 K/mcL (4.3-11.1)
[2022-08-30 08:52] LABS: BUN/Creatinine Ratio 14 (6-26); Blood Urea Nitrogen 11 mg/dL (6-20); Calcium 8.5 mg/dL (8.6-10.3); Carbon Dioxide 23 mEq/L (23-29); Chloride 107 mEq/L (98-107); Glucose 117 mg/dL (70-105); Osmolality,Calculated 282 (280-300); Potassium 4.4 mEq/L (3.5-5.1); Sodium 136 mEq/L (136-145)
[2022-08-30] MEDS: Ertapenem 1,000 MG in 0.9 % Sodium Chloride Mini Bag 100 ML IVPB SCH (15:30)
[2022-08-31 05:34] LABS: BUN/Creatinine Ratio 15 (6-26); Blood Urea Nitrogen 13 mg/dL (6-20); Calcium 8.5 mg/dL (8.6-10.3); Carbon Dioxide 26 mEq/L (23-29); Chloride 106 mEq/L (98-107); Glucose 118 mg/dL (70-105); Osmolality,Calculated 285 (280-300); Potassium 3.8 mEq/L (3.5-5.1); Sodium 137 mEq/L (136-145)
[2022-08-31] MEDS: *HR* Enoxaparin 40 MG/0.4 ML SYRINGE SQ SCH (05:34)
[2022-08-31] MEDS: Ertapenem 1,000 MG in 0.9 % Sodium Chloride Mini Bag 100 ML IVPB SCH (10:49)
[2022-08-31 11:33] VITALS: BP 110/75; PULSE 87; TEMP 97.6; O2SAT 98
== END 2022-08-31 12:38 | disposition home health service (06) | DRG 698 ==
LOC: EMEROOARM 11:13 → 3ANU 11:13 → SUATTDRO 08-28 12:29
PROVIDERS: ADMIT Hospitalist; ATTEND Internal Medicine

== ENCOUNTER 2022-09-20 14:22 | Inpatient (IN) ==
[2022-09-20] MEDS ORDERED: 0.9 % Sodium Chloride 1,000 ML IVC ONE (16:58)
[2022-09-20] MEDS ORDERED: Vancomycin 1,750 MG/517.5 ML IV.SOLN IVPB ONE (18:00)
[2022-09-20 18:23] LABS: Basophils # 0.1 K/mcL (0.0-0.2); Basophils % 0.7 %; Eosinophils # 0.2 K/mcL (0.0-0.6); Eosinophils % 2.3 %; Hematocrit 34.9 % (37.5-50.1); Hemoglobin 10.3 g/dL (12.9-16.9); Immature Granulocytes % 0.2 % (0-4); Lymphocytes # 1.3 K/mcL (0.6-4.6); Mean Corpuscular HGB Conc 29.5 g/dL (31.6-35.5); Mean Corpuscular Hemoglobin 23.4 pg (28.0-33.3); Mean Corpuscular Volume 79.3 fL (83.0-100.0); Mean Platelet Volume 10.6 fL (9.4-12.4); Monocytes # 0.9 K/mcL (0.0-1.3); Monocytes % 8.2 %; Neutrophils # 8.1 K/mcL (1.6-8.9); Platelet Count 410 K/mcL (140-400); Red Cell Distribution Width 16.6 % (11.5-14.5); Segmented Neutrophils % 76.6 %; White Blood Count 10.6 K/mcL (4.3-11.1)
[2022-09-20 18:38] LABS: BUN/Creatinine Ratio 14 (6-26); Blood Urea Nitrogen 13 mg/dL (6-20); Calcium 9.1 mg/dL (8.6-10.3); Carbon Dioxide 27 mEq/L (23-29); Chloride 102 mEq/L (98-107); Glucose 110 mg/dL (70-105); Osmolality,Calculated 283 (280-300); Potassium 3.9 mEq/L (3.5-5.1); Sodium 136 mEq/L (136-145)
[2022-09-20] MEDS ORDERED: Acetaminophen 325 MG TABLET PO PRN (19:44)
[2022-09-20] MEDS ORDERED: Naloxone 0.4 MG/ML INJ IVP PRN (19:44)
[2022-09-20] MEDS ORDERED: Ondansetron 4 MG/2 ML VIAL IVP PRN (19:44)
[2022-09-20] MEDS ORDERED: Melatonin 3 MG TABLET PO PRN (19:44)
[2022-09-20 20:28] LABS: C-Reactive Protein 66 mg/L (Less than 10)
[2022-09-20] MEDS ORDERED: Famotidine 20 MG TABLET PO PRN (22:55)
[2022-09-20] MEDS ORDERED: Albuterol 2.5 MG/3 ML NEBULIZER IH PRN (22:55)
[2022-09-21 06:22] LABS: Hematocrit 27.4 % (37.5-50.1); Mean Corpuscular HGB Conc 29.9 g/dL (31.6-35.5); Mean Corpuscular Hemoglobin 23.8 pg (28.0-33.3); Mean Corpuscular Volume 79.4 fL (83.0-100.0); Mean Platelet Volume 10.3 fL (9.4-12.4); Platelet Count 312 K/mcL (140-400); Red Blood Count 3.45 M/mcL (4.19-5.50); Red Cell Distribution Width 16.6 % (11.5-14.5); White Blood Count 6.8 K/mcL (4.3-11.1)
[2022-09-21 06:23] LABS: Hemoglobin 8.2 g/dL (12.9-16.9)
[2022-09-21 06:36] LABS: BUN/Creatinine Ratio 11 (6-26); Blood Urea Nitrogen 11 mg/dL (6-20); Calcium 8.2 mg/dL (8.6-10.3); Carbon Dioxide 26 mEq/L (23-29); Chloride 106 mEq/L (98-107); Glucose 102 mg/dL (70-105); Osmolality,Calculated 284 (280-300); Potassium 3.6 mEq/L (3.5-5.1); Sodium 137 mEq/L (136-145)
[2022-09-21] MEDS: Ascorbic Acid 500 MG TABLET PO SCH (08:59)
[2022-09-21] MEDS: Lactobacillus 1 EACH CAP.SPRINK PO SCH (08:59)
[2022-09-22 04:21] LABS: Basophils # 0.1 K/mcL (0.0-0.2); Basophils % 0.9 %; Eosinophils # 0.4 K/mcL (0.0-0.6); Eosinophils % 5.4 %; Hemoglobin 8.3 g/dL (12.9-16.9); Immature Granulocytes % 0.1 % (0-4); Lymphocytes # 1.7 K/mcL (0.6-4.6); Lymphocytes % 25.1 %; Mean Corpuscular HGB Conc 29.6 g/dL (31.6-35.5); Mean Corpuscular Hemoglobin 23.6 pg (28.0-33.3); Mean Corpuscular Volume 79.8 fL (83.0-100.0); Mean Platelet Volume 10.3 fL (9.4-12.4); Monocytes # 0.7 K/mcL (0.0-1.3); Monocytes % 10.5 %; Neutrophils # 3.9 K/mcL (1.6-8.9); Platelet Count 331 K/mcL (140-400); Red Blood Count 3.51 M/mcL (4.19-5.50); Red Cell Distribution Width 16.7 % (11.5-14.5); White Blood Count 6.7 K/mcL (4.3-11.1)
[2022-09-22 04:41] LABS: Potassium 3.8 mEq/L (3.5-5.1)
[2022-09-22 04:48] LABS: % Iron Saturation 5 % (20-55); Iron 19 mcg/dL (65-175); Transferrin 256 mg/dL (203-362)
[2022-09-22 05:07] LABS: Ferritin 11 ng/mL (20-250)
[2022-09-22 05:13] LABS: Folate 8.1 ng/mL (3.0-16.0)
[2022-09-22] MEDS: Ascorbic Acid 500 MG TABLET PO SCH (08:15)
[2022-09-22] MEDS: Lactobacillus 1 EACH CAP.SPRINK PO SCH (08:15)
[2022-09-22] MEDS: Iron Sucrose Complex 200 MG in 0.9 % Sodium Chloride 100 ML IVPB SCH (12:00)
[2022-09-22] MEDS: Cyanocobalamin (B-12) 1,000 MCG/ML VIAL IM SCH (12:00)
[2022-09-23] MEDS: Lactobacillus 1 EACH CAP.SPRINK PO SCH (08:20)
[2022-09-23] MEDS: Ascorbic Acid 500 MG TABLET PO SCH (08:20)
[2022-09-23] MEDS: Iron Sucrose Complex 200 MG in 0.9 % Sodium Chloride 100 ML IVPB SCH (08:21)
[2022-09-23] MEDS: Cyanocobalamin (B-12) 1,000 MCG/ML VIAL IM SCH (08:21)
[2022-09-23 10:12] LABS: Basophils # 0.1 K/mcL (0.0-0.2); Basophils % 0.9 %; Eosinophils # 0.4 K/mcL (0.0-0.6); Eosinophils % 4.4 %; Hematocrit 28.2 % (37.5-50.1); Hemoglobin 8.4 g/dL (12.9-16.9); Immature Granulocytes % 0.4 % (0-4); Lymphocytes # 1.2 K/mcL (0.6-4.6); Lymphocytes % 14.2 %; Mean Corpuscular HGB Conc 29.8 g/dL (31.6-35.5); Mean Corpuscular Hemoglobin 23.7 pg (28.0-33.3); Mean Corpuscular Volume 79.7 fL (83.0-100.0); Mean Platelet Volume 10.3 fL (9.4-12.4); Monocytes # 0.4 K/mcL (0.0-1.3); Monocytes % 4.4 %; Neutrophils # 6.2 K/mcL (1.6-8.9); Platelet Count 329 K/mcL (140-400); Red Blood Count 3.54 M/mcL (4.19-5.50); Red Cell Distribution Width 16.4 % (11.5-14.5); Segmented Neutrophils % 75.7 %; White Blood Count 8.1 K/mcL (4.3-11.1)
[2022-09-23 10:29] LABS: BUN/Creatinine Ratio 15 (6-26); Blood Urea Nitrogen 14 mg/dL (6-20); Calcium 9.4 mg/dL (8.6-10.3); Carbon Dioxide 27 mEq/L (23-29); Chloride 102 mEq/L (98-107); Glucose 202 mg/dL (70-105); Osmolality,Calculated 288 (280-300); Potassium 3.8 mEq/L (3.5-5.1); Sodium 136 mEq/L (136-145)
[2022-09-24] MEDS: Lactobacillus 1 EACH CAP.SPRINK PO SCH (09:53)
[2022-09-24] MEDS: Ascorbic Acid 500 MG TABLET PO SCH (09:53)
[2022-09-24] MEDS: Iron Sucrose Complex 200 MG in 0.9 % Sodium Chloride 100 ML IVPB SCH (09:54)
[2022-09-24] MEDS: Cyanocobalamin (B-12) 1,000 MCG/ML VIAL IM SCH (09:56)
[2022-09-25 06:12] LABS: Basophils # 0.1 K/mcL (0.0-0.2); Basophils % 0.9 %; Eosinophils # 0.5 K/mcL (0.0-0.6); Eosinophils % 5.2 %; Hematocrit 29.7 % (37.5-50.1); Hemoglobin 8.7 g/dL (12.9-16.9); Immature Granulocytes % 0.7 % (0-4); Lymphocytes # 1.7 K/mcL (0.6-4.6); Lymphocytes % 18.6 %; Mean Corpuscular HGB Conc 29.3 g/dL (31.6-35.5); Mean Corpuscular Hemoglobin 23.8 pg (28.0-33.3); Mean Corpuscular Volume 81.1 fL (83.0-100.0); Mean Platelet Volume 10.1 fL (9.4-12.4); Monocytes # 0.8 K/mcL (0.0-1.3); Monocytes % 9.2 %; Neutrophils # 5.9 K/mcL (1.6-8.9); Nucleated Red Blood Cells 0.3 /100 WBC (0); Platelet Count 336 K/mcL (140-400); Red Blood Count 3.66 M/mcL (4.19-5.50); Red Cell Distribution Width 17.2 % (11.5-14.5); Segmented Neutrophils % 65.4 %
[2022-09-25] MEDS: Cyanocobalamin (B-12) 1,000 MCG/ML VIAL IM SCH (09:40)
[2022-09-25] MEDS: Ascorbic Acid 500 MG TABLET PO SCH (09:40)
[2022-09-25] MEDS: Lactobacillus 1 EACH CAP.SPRINK PO SCH (09:40)
[2022-09-25] MEDS ORDERED: Flu Vac QV 22-23 (6MOS UP)/PF 0.5 ML SYRINGE IM ONE (10:13)
[2022-09-25 10:53] LABS: Influenza A PCR Negative (Negative); Influenza B PCR Negative (Negative); Resp. Syncytial Virus PCR Negative (Negative)
[2022-09-25 11:07] VITALS: BP 117/68; PULSE 92; TEMP 98.1; O2SAT 95
[2022-09-25 11:18] LABS: SARS-CoV-2 by PCR (In House) Negative (Negative)
== END 2022-09-25 12:45 | DRG 593 ==
LOC: EMEROOARM 14:22 → 3ANU 14:22 → SUATTDRO 19:31 → 3ANU 20:31 → SUATTDRO 09-22 18:27
PROVIDERS: ADMIT Internal Medicine; ATTEND Internal Medicine